=== PATIENT | male | born 1965 | race Caucasian/White ===

== ENCOUNTER 2024-06-12 15:03 | Inpatient (IN) | payer MEDICARE, OTHER, SELFPAY ==
[2024-06-12] VITALS (11 sets, daily range): BP systolic 83–114; BP diastolic 58–71; BMI 19.0
[2024-06-12 13:04] LABS: Urine Albumin Trace (Neg - Trace); Urine Bilirubin Negative (Negative); Urine Character Slightly Cloudy (Clear); Urine Color Yellow; Urine Glucose Negative (Negative); Urine Ketone Negative (Negative); Urine Leukocyte 2+ (Negative); Urine Nitrite Positive (Negative); Urine Occult Blood Negative (Negative); Urine Urobilinogen Negative (Neg - 1+)
[2024-06-12 13:06] LABS: % Basophils 0.5 % (0-2); % Eosinophils 3.5 % (0-6); % Immature Granulocytes 0.6 % (0-0.5); % Lymphocytes 11.3 % (20.5-51.1); % Monocytes 11.6 % (1.7-9.3); % Neutrophils 72.5 % (42.2-75.2); Absolute Basophils 0.1 10^3/uL (0-0.2); Absolute Eosinophils 0.5 10^3/uL (0-0.7); Absolute Immature Granulocytes 0.1 10^3/uL (0-0.05); Absolute Lymphocytes 1.6 10^3/uL (1.2-3.4); Absolute Monocytes 1.7 10^3/uL (0.1-0.6); Absolute Neutrophils 10.3 10^3/uL (1.4-6.5); Hematocrit 29.5 % (39.0-52.0); Hemoglobin 9.6 g/dL (13.0-18.0); Mean Corp Hgb Conc. 32.5 g/dL (33.0-37.0); Mean Corpuscular Hgb 31.8 pg (27.0-31.0); Mean Corpuscular Volume 97.7 fL (80.0-94.0); Mean Platelet Volume 10.7 fL (7.4-10.4); Nucleated Red Blood Cells % 0 % (-); Platelet Count 291 10^3/uL (130-400); Red Blood Cell Count 3.02 10^6/uL (4.70-6.10); Red Cell Dist. Width 18.7 % (11.5-14.5); White Blood Cell Count 14.2 10^3/uL (4.8-10.8)
[2024-06-12 13:17] LABS: Urine Bacteria Moderate (Negative); Urine Calcium Oxalate Crystals Present; Urine Red Blood Cell 0-2 /HPF (0-2); Urine Yeast Moderate (Negative)
[2024-06-12 13:27] LABS: Lactic Acid 1.1 mmol/L (0.7-2.0)
--- NOTE | 2024-06-12 13:31 | ED.GENMED ---
History of Present Illness
General
Chief Complaint: Fever
Time Seen by Provider: 06/12/24 12:54
History of Present Illness
History of Present Illness:
58-year-old male with history of complicated COVID infection, with cardiac arrest, anoxic brain injury presenting to the emergency department for concern of fever. Patient is nonverbal, arrives from home where cares for him. Patient allegedly
had extensive hospital stay at [place] recently, discharged to home. Visiting nurse came to the house today, found patient to be febrile and hypotensive, sent to the emergency department. On arrival, patient is contracted, cachectic. He is
awake, however nonverbal. Diffuse wounds to the skin, bandaged. Patient also has a trach collar, however no patent stoma. No additional history obtained at this time.
Past History
Past History
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
ED Past Surgical History: Appendectomy and Orthopedic
Social History
Tobacco: Non-smoker
Alcohol: Occasional
Drug: None
Personal:
Living: group home
Employment: Disabled
Family History
Family History: Other ( sick)
Phy Exam
Physical Exam
Physical Exam:
General: Cachectic, dry mucous membranes, contracted upper and lower extremities
HEENT: protecting airway
Neck: No patent stoma
CV: Normal heart rate, regular rhythm
Resp: No accessory muscle use, no increased work of breathing, lungs clear to auscultation bilaterally
Abd: Soft and non-distended, no tenderness to palpation, PEG tube in place
Extremities: Contracted upper and lower extremities. Skin breakdown to the right medial calf where legs meet. There is also scattered wounds to the sacrum and back, different stages of healing without significant drainage or erythema.
Neuro: alert, no verbal or motor response
: Condom catheter in place
Rectal: deferred
Psych: Normal affect
Skin: Multiple areas of skin breakdown
Course
Orders/Labs/Results
Orders:
Orders
06/12/24 12:43
Electrocardiogram (*1) Urgent
Reason for Study: Fatigue / Weakness
EKG- Treatment ONCE
06/12/24 12:54
Complete Blood Count/With Diff Urgent
Lactic Acid Urgent
Urinalysis Reflex To Culture Urgent
Date Specimen was Collected: 06/12/24
Time Specimen was Collected: 12:52
Urine Microscopic Reflex Cult Urgent
Blood Culture Urgent
JOHANA Source: Blood/Venous
Specimen Description:
Date Specimen was Collected: 06/12/24
Time Specimen was Collected: 12:52
Urine Culture Urgent
JOHANA Source: U
Specimen Description:
Date Specimen was Collected: 06/12/24
Time Specimen was Collected: 12:52
06/12/24 13:00
Blood Culture Routine
JOHANA Source: Blood/Venous
Specimen Description:
06/12/24 13:04
CR Chest Portable - 1 View Urgent
Comment:
Reason For Exam: sepsis
Reason Study Needs to be Portable: Patient Unstable
06/12/24 13:31
Comprehensive Metabolic Panel Urgent
06/12/24 13:47
0.9% Sodium Chloride 1000 ml [Nss] 1,000 ml IV BOLUS
06/12/24 14:06
Cefepime HCl [Maxipime] 2,000 mg IV NOW STA
Abnormal Lab Results
06/12/24 06/12/24
12:54 13:31
WBC 14.2 H 10^3/uL
(4.8-10.8)
RBC 3.02 L 10^6/uL
(4.70-6.10)
Hgb 9.6 L g/dL
(13.0-18.0)
Hct 29.5 L %
(39.0-52.0)
MCV 97.7 H fL
(80.0-94.0)
MCH 31.8 H pg
(27.0-31.0)
MCHC 32.5 L g/dL
(33.0-37.0)
RDW 18.7 H %
(11.5-14.5)
MPV 10.7 H fL
(7.4-10.4)
Abs Immat Gran (auto) 0.1 H 10^3/uL
(0-0.05)
Absolute Neuts (auto) 10.3 H 10^3/uL
(1.4-6.5)
Absolute Monos (auto) 1.7 H 10^3/uL
(0.1-0.6)
Immature Gran % 0.6 H %
(0-0.5)
Lymphocytes % 11.3 L %
(20.5-51.1)
Monocytes % 11.6 H %
(1.7-9.3)
Sodium 132 L mmol/L
(135-145)
Potassium 5.8 H mmol/L
(3.5-5.1)
BUN 59 H mg/dl
(9-20)
Calcium 10.3 H mg/dl
(8.4-10.2)
Total Protein 6.2 L g/dl
(6.3-8.2)
Albumin 2.9 L g/dl
(3.5-5.0)
Urine Nitrite (Reflex) Positive A
(Negative)
Leukocyte Esterase Rfl 2+ A
(Negative)
Urine WBC (Reflex) 11-15 A /HPF
(0-5)
Urine Bacteria (Reflex) Moderate A
(Negative)
Urine Yeast Moderate A
(Negative)
06/12/24 12:54
06/12/24 13:31
Vital Signs
Initial and Last Documented VS:
Initial Vital Signs
Pulse Resp BP Pulse Ox
83 31 114/64 100
06/12/24 12:45 06/12/24 12:45 06/12/24 12:45 06/12/24 12:45
Last Documented Vital Signs
Temp Pulse Resp BP Pulse Ox
99.5 F 85 16 114/64 99
06/12/24 12:50 06/12/24 12:50 06/12/24 12:50 06/12/24 12:50 06/12/24 12:50
MDM/Problems Addressed
MDM/Problems Addressed:
58-year-old male with history of complicated COVID infection, cardiac arrest, anoxic brain injury presenting with fever and hypotension. On arrival, patient with low-grade fever, however blood pressure improved.
In the setting of fever and patient's appearance, concern for systemic infection, unclear source. Potential sources include urine, pneumonia, skin. Sepsis workup initiated with laboratory analysis, lactic acid, blood cultures, urinalysis. Will
also obtain chest x-ray imaging. Attempted to call , without answer.
14:00-patient is lactic acid within normal limits, however does have leukocytosis. Urine appears infected, suspected source. Labs also show hyponatremia, hyperkalemia, however hemolyzed. Was able to reach , updated. Plan for admission for
concern of sepsis from urinary source.
*Critical Care Note
Total Time (30-74mins, 75-104mins- exclusive of procedures): Not Applicable
ED Attending Note
-
Portions of this chart may have been created with voice recognition software.� Occasional wrong word or��sound alike� substitutions may have occurred due to the inherent limitations of voice recognition software.
Discharge Plan
Departure
Prescriptions:
No Action
multivitamin 1 EACH tablet
1 ea feeding tube DAILY
atorvastatin 40 MG tablet
40 mg feeding tube HS
sennosides [senna] 8.6 MG tablet
2 tab feeding tube HS
acetaminophen 325 MG tablet
650 mg feeding tube Q4HPRN PRN (Reason: mild pain, temp>100.4)
albuterol sulfate 2.5 MG/3 ML solution for nebulization
2.5 mg inhalation Q12H
polyethylene glycol 3350 17 GRAMS powder in packet
17 grams feeding tube DAILY
amiodarone [Pacerone] 200 MG tablet
200 mg feeding tube DAILY
hydralazine 25 MG tablet
25 mg feeding tube Q8
Patient Comments:
hold for SBP <100
aspirin [Aspir-Low] 81 MG tablet,delayed release (DR/EC)
81 mg feeding tube .EVERY OTHER DAY
guaifenesin 200 MG/10 ML liquid
200 mg feeding tube Q6
amlodipine 10 MG tablet
10 mg feeding tube DAILY
bisacodyl [OneLAX Bisacodyl] 10 MG suppository
10 mg VT DAILYPRN PRN (Reason: constipation)
Patient Comments:
give if sorbitol is not effective for 24 hours
ferrous sulfate 300 MG/5 ML liquid
300 mg feeding tube BID
lansoprazole [Prevacid] 30 MG capsule,delayed release(DR/EC)
30 mg feeding tube DAILY
docusate sodium [Colace] 100 MG capsule
100 mg feeding tube Q12H
ondansetron 4 MG tablet,disintegrating
4 mg sublingual Q8HPRN PRN (Reason: nausea/vomiting)
sorbitol 30 ML solution
30 ml feeding tube DAILY PRN (Reason: if no BM in 3 days)
heparin (porcine) 5,000 UNITS/ML solution
5,000 units SC Q12H
doxazosin 2 MG tablet
2 mg feeding tube HS
chlorhexidine gluconate 15 ML mouthwash
15 ml PO BID
sodium chloride [Saline Nasal Mist] 126 ML mist
1 spray intranasal Q6H
metoprolol tartrate 75 MG tablet
75 mg feeding tube Q12H
Patient Comments:
hold for SBP <110
Sodium Chloride 7%
4 ml inhalation Q12H
carbamide peroxide [Ear Drops (carbamide peroxide)] 1 DROP drops
5 drp otic (ear) BID
Patient Comments:
for 21 days- started 01/07/22, end date 01/28/22
carboxymethylcellulose sodium [Refresh Celluvisc] 1 EACH dropperette
1 ea BOTH EYES Q4HPRN PRN (Reason: dry eyes)
miconazole nitrate [Miconazorb AF] 1 APPLIC powder
1 applic topical BID 0RF
Rx Instructions:
to groin and moist areas
Interventions
Interventions:
*Risk Screen - Suicide Last Done: 06/12/24 12:41
*General Assessment Last Done: 06/12/24 12:40
*Neglect/Abuse Screening Last Done: 06/12/24 12:41
*ED COVID-19 Vaccine History Last Done: 06/12/24 12:40
ED- Neurological Assessment Last Done: 06/12/24 12:41
ED-Skin Assessment Last Done: 06/12/24 13:00
Discharge Date and Time
Print Language: ROMANSH
[2024-06-12 13:54] LABS: ALT (SGPT) 23 U/L (0-50); AST (SGOT) 17 U/L (17-59); Albumin 2.9 g/dl (3.5-5.0); Alkaline Phosphatase 125 U/L (38-126); Blood Urea Nitrogen 59 mg/dl (9-20); Calcium 10.3 mg/dl (8.4-10.2); Carbon Dioxide 27 mmol/L (22-30); Chloride 98 mmol/L (98-107); Glucose 94 mg/dl (70-99); Potassium 5.8 mmol/L (3.5-5.1); Sodium 132 mmol/L (135-145); Total Bilirubin 0.3 mg/dl (0.2-1.3); Total Protein 6.2 g/dl (6.3-8.2); eGFR > 60.00
--- NOTE | 2024-06-12 14:13 | HPS.HSE ---
Family Physician
-
Family Physician:
Chief Complaint
-
fever
History of Present Illness
58-year-old male with history of complicated COVID infection, with cardiac arrest, anoxic brain injury presenting to the emergency department for concern of fever. Patient is nonverbal, arrives from home where cares for him. patient was found
hypotensive and febrile at home.On arrival, patient is contracted, cachectic. He is awake, however nonverbal.
positive UA. received if cefepime in ER. admitting for further management.
Medical History
Past Medical History
Past Medical History: Reports Other
Additional Past Medical History:
esophageal ring
esophagitis
atiral fib
Past Surgical History: Reports None
Social History
Unable to obtain full social history at this time due to: Acuity
Family History
Family History: Not pertinent
Allergies / Home Medications
Allergies reflects when Allergies were last updated in [facility].
Home Medications with original date entered in [facility]
Allergy/Medication List:
fever
Review of Systems
-
Unable to obtain full review of systems at this time due to: Acuity
Physical Exam
Vital Signs
Vital Signs
Temp Pulse Resp BP Pulse Ox
99.5 F 85 16 114/64 99
06/12/24 12:50 06/12/24 12:50 06/12/24 12:50 06/12/24 12:50 06/12/24 12:50
Physical Exam
General: Well Developed, Well Nourished and No Apparent Distress
HEENT: NormoCephalic, Moist mucous membranes and Atraumatic
Respiratory: Rhonchi
Cardiac: S1/S2 and Regular Rhythm; No Murmur or Rub
GI: Soft, Non Tender, Non Distended, Normal Bowel Sounds and Peg Tube; No Organomegaly
Rectal: Deferred by Provider
Musculoskeletal: No Clubbing, No Cyanosis and No Edema
Skin: Other (sacral wound); No Rash
Neuro: Nonfocal/grossly intact
Laboratory Results
-
06/12/24 12:54
06/12/24 13:31
Laboratory Results
Lactic Acid 1.1 mmol/L (0.7-2.0) 06/12/24 12:54
Total Bilirubin 0.3 mg/dl (0.2-1.3) 06/12/24 13:31
AST 17 U/L (17-59) 06/12/24 13:31
ALT 23 U/L (0-50) 06/12/24 13:31
Alkaline Phosphatase 125 U/L (38-126) 06/12/24 13:31
Data Reviewed
-
Diagnostic Radiology: Report Reviewed by me
Lab Data: Labs Reviewed by me
Impression/Plan
-
#fever/hypotension likely from UTI
#sepsis
- wbc 14.2
-chest x ray with Limited study with possible scarring versus postsurgical changes within the right upper lobe. No focal airspace disease. No large effusions or pneumothorax.
-blood and urine culture sent from ER
-continue iv cefepime
-Tylenol prn for fever
#hxt of complicated COVID infection/anoxic brain injury
#chronic hypoxic respiratory failure from recent COVID infection
-patient has Trach
#anemia of chronic disease
-hgb stable at 9.6
-no active bleeding
-ctm
#hyponatremia likely hypovolemic
#hyperkalemia
-na 132, k 5.8
-hydrate with fluids
-monitor BMp in am
# Prx AF
-c/w Amiodarone and Metoprol vid tube
-EKG with NSR
#Multiple bilateral hemorrhagic infarcts, noted on CT 09/04/2021
#sacral wound
-wound care consulted
#G/J tube
-dietary consulted
#DVT prophylaxis
-heparin sq
#CODE status
-full code
[2024-06-12] MEDS: NSS 1000 IV ×2 (14:19→17:31)
[2024-06-12] MEDS: MAXIPIME 2000 MG IV (14:20)
--- NOTE | 2024-06-12 14:30 | W.PN.UPDATE ---
Addendum entered and electronically signed by Antelmo Beltrán MD 06/12/24 15:21:
Correction: for error
<del>Severe</del> <del>Hypercalcemia</del> <del>suspect</del> <del>2/2</del> <del>severe</del> <del>dehydration</del>
<del>Suspect</del> <del>contraction</del> <del>Alkalosis</del>
<del>Severe</del> <del>azotemia</del>
<del>Renal</del> <del>insufficiency</del> <del>-</del> <del>suspect</del> <del>CKD</del> <del>4/5</del>
<del>-</del> <del>Pending</del> <del>PTH</del>
<del>-</del> <del>c/w</del> <del>NS</del> <del>80/H</del> <del>x</del> <del>2</del> <del>L</del>
<del>-</del> <del>Observe</del> <del>Calcium</del> <del>following</del> <del>Fluid</del> <del>resuscitation</del>
<del>-</del> <del>Trend</del> <del>BMP</del> <del>daily</del>
<del>-</del> <del>Renal</del> <del>CS</del>
Original Note:
Update Note
Progress Note Update
This note serves as an addendum to the H&P by chemical engineering intern ALBERTO [facility]
I could not get any information from the patient as non verbal , trach, HX SABIHA
Information gathered by chart review and speaking with the ER staff.
HPI
58M from Home , 24 hr total care, VN , Trach, PEGTF depedent Nutrition, Non verbal, HX complicated COVID infection with cardiac arrest and anoxic brain injury, HX HTN, HLD, Constipation coming in from home with fever and hypotension;
PHX
Candidal endocarditis,
GERD,
Cardiac arrest
Anoxic brain injury)
Multiple bilateral hemorrhagic infarcts, noted on CT 09/04/2021
Respiratory failure-acute hypoxemic, failed NIV, intubated 08/23/21
Severe Covid 19 pneumonia aug 2021
He reports Covid 19 pneumonia October 2019 and May 2021-note never had a positive test-it was 'assumed'-doubt he had it
Pneumomediastinum, secondary to COVID pneumonia, resolved on CXR 08-27
HX atrial fibrillation, on IV heparin
NSVT
Gallstones-incidentally noted on CT chest 08/18/21
Distal toes ischemia
Constipation, s/p enema, large loose BM 01-25
Reviewed VS: T 99.5 BP 115/65
PE
Gen: chronically debilitated, bedbound.
Neck: supple.
CV: RRR, +S1/S2, no m/r/g.
Resp: CTAB, no rales, wheezes, or rhonchi.
Abd: GJ Tube , +BS, soft, NT, ND
: Prince cath +
MS: fixed severe flexion contracture of all 4 extremities and with sever muscle wasting
Neuro: Nonverbal.
Psych: Nonverbal.
Laboratory Tests
01/25/22 06/12/24 06/12/24
04:34 12:54 13:31
WBC 12.3 H 14.2 H
Hgb 8.2 L 9.6 L
Sodium 132 L
Potassium 5.8 H
BUN 59 H
Creatinine 1.6 H 1.2
eGFR > 60.00
Lactic Acid 1.1
Calcium 10.3 H
Albumin 2.9 L
Urine Nitrite (Reflex) Positive A
Leukocyte Esterase Rfl 2+ A
Urine WBC (Reflex) 11-15 A
Urine Bacteria (Reflex) Moderate A
CXR:
Limited study with possible scarring versus postsurgical changes within the right upper lobe.
No focal airspace disease.
No large effusions or pneumothorax.
Echo 08/18/21: EF 65%, no significant valve disease.
Last hospitalist admission: DATE OF ADMISSION: 01/09/2022 - DATE OF DISCHARGE: 01/25/2022
DISCHARGE DIAGNOSES:
1. Severe hypercalcemia.
2. Contraction alkalosis.
3. Mild progressive hypernatremia.
4. Hypokalemia.
5. Aspiration pneumonia.
6. Acute kidney injury.
7. Hypoxia.
8. Metabolic encephalopathy.
9. History of paroxysmal atrial fibrillation.
10.Functional quadriplegia.
ASSESSMENT & PLAN
Clinical sepsis due to UTI
Relative hypotension
No prior Urine Micro data
- UCx
- IVF
- Hold all anti HTN Meds Hydralazine, Doxazosin
- cont. IV CFP for now
Severe Hypercalcemia suspect 2/2 severe dehydration
Suspect contraction Alkalosis
Severe azotemia
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
- Pending PTH
- c/w NS 80/H x 2 L
- Observe Calcium following Fluid resuscitation
- Trend BMP daily
- Renal CS
In NSR, HX Prx AF
-c/w Amiodarone
c/w Metoprol vis tube with hold index
G J Tune dependent nutrition
Severe protein calori malnutrition
60 kg body weight
Severe FTT at home ?
- Raised Printer consult
- CRM consult
PHX POA
Multiple bilateral hemorrhagic infarcts, noted on CT 09/04/2021
Respiratory failure-acute hypoxemic, failed NIV, intubated 08/23/21
Severe Covid 19 pneumonia Aug 2021
NSVT
Gallstones-incidentally noted on CT chest 08/18/21
Distal toes ischemia
Constipation
DVT Px: SQH
Code: Full code
IMU
--- NOTE | 2024-06-12 16:30 | PTCARENOTE ---
Received patient by stretcher from ED. Patient nonverbal, contracted, many many wounds, white grouped lesions on his feet. WOCN consult placed. On 6L TC to neck stoma. Neck stoma with a lot of white sputum. PEG site CDI. NSR, VSS. Will closely
monitor.
[2024-06-12] MEDS: FERROUS SULFATE ORAL LIQUID 300 MG TUBE (20:56)
[2024-06-12] MEDS: KEPPRA 750 MG TUBE (20:56)
[2024-06-12] MEDS: LIPITOR 40 MG TUBE (20:56)
[2024-06-12] MEDS: DEPAKENE 125 MG TUBE (20:56)
[2024-06-12] MEDS: ZOVIRAX 800 MG TUBE (20:57)
[2024-06-12] MEDS: HEPARIN 5000 UNITS SC (20:57)
[2024-06-13] VITALS (12 sets, daily range): BP systolic 98–126; BP diastolic 59–77
[2024-06-13] MEDS: STERILE WATER FOR INJECTION 10 ML IV ×2 (01:38→13:17)
[2024-06-13] MEDS: MAXIPIME 2000 MG IV ×2 (01:38→13:17)
[2024-06-13] MEDS: NSS 1000 IV ×3 (03:20→22:09)
[2024-06-13 04:36] LABS: Hemoglobin 8.3 g/dL (13.0-18.0); Mean Corp Hgb Conc. 30.7 g/dL (33.0-37.0); Mean Corpuscular Hgb 31.6 pg (27.0-31.0); Mean Corpuscular Volume 102.7 fL (80.0-94.0); Mean Platelet Volume 10.4 fL (7.4-10.4); Platelet Count 235 10^3/uL (130-400); Red Blood Cell Count 2.63 10^6/uL (4.70-6.10); Red Cell Dist. Width 18.7 % (11.5-14.5); White Blood Cell Count 9.8 10^3/uL (4.8-10.8)
[2024-06-13 04:58] LABS: Blood Urea Nitrogen 45 mg/dl (9-20); Calcium 10.3 mg/dl (8.4-10.2); Carbon Dioxide 26 mmol/L (22-30); Chloride 106 mmol/L (98-107); Glucose 90 mg/dl (70-99); Potassium 5.1 mmol/L (3.5-5.1); Sodium 137 mmol/L (135-145); eGFR > 60.00
--- NOTE | 2024-06-13 07:03 | PTCARENOTE ---
Cannot verify VS captured from prior shift.
[2024-06-13] MEDS: KEPPRA 750 MG TUBE ×2 (09:44→21:58)
[2024-06-13] MEDS: FERROUS SULFATE ORAL LIQUID 300 MG TUBE ×2 (09:44→21:58)
[2024-06-13] MEDS: DEPAKENE 125 MG TUBE ×2 (09:46→21:58)
[2024-06-13] MEDS: PACERONE 200 MG TUBE (09:48)
[2024-06-13] MEDS: HEPARIN 5000 UNITS SC ×2 (09:48→20:00)
[2024-06-13] MEDS: LOKELMA 5 GRAM TUBE (09:48)
--- NOTE | 2024-06-13 10:57 | CM ---
CM reviewed chart. CM introduced self and role. Spoke with patient's , as patient is nonverbal. Per EMS report, patient was just discharged 2 days ago from [facility] due to sepsis from multiple wounds. He was being seen by [facility]. The nurse noticed there was an issue with his trach and called .
Patient lives with his . His PCP is Dr. Feliciano Dunbar. His pharmacy is [facility] in [place]. He has 25/02 care. says she helps caring for him and has had some assistance from patient's sister as well. He is bedbound. He uses home 02, has a
trach, PEG tube, has multiple wounds and is contracted and nonverbal. shared that this all resulted from a previous stroke. They live in a multi-level home and there is a ramp to enter into the home. He needs total care. denied at [facility].
ANTICIPATED DISCHARGE DISPO: Home with and home health care when medically cleared.
--- NOTE | 2024-06-13 11:30 | W.PN.HOSP.TC ---
Today's Communication/Plan
-
Cont with IV abx for now
await culture data
Records requested
IVF till TF recs
Assessment / Plan
Assessment / Plan
# Mild hypotension likely multifactorial due to BP meds (lopressor/valsartan) vs. hypovolemia
#Sepsis 2/2 UTI e.coli
- Wbc 14.2
-chest x ray with Limited study with possible scarring versus postsurgical changes within the right upper lobe. No focal airspace disease. No large effusions or pneumothorax.
-Blood cultures in lab. Urine culture preliminary with E. coli. MRSA screen pending.
-continue iv cefepime prophylactically for now
-Tylenol prn for fever
# Anoxic brain injury after multiple stroke in the setting of COVID with functional quadriplegia status post trach and PEG
-Status post trach. Monitor for secretions from trach. If with Increase secretion send sputum for sample
-Awaiting dietary eval for tube feeds.
#Anemia of chronic disease
-hgb stable at 9.6
-no active bleeding
#Hyponatremia likely hypovolemic
#hyperkalemia
-na 132, k 5.8
-hydrate with fluids
-on lokelma daily
-Sodium stabilized. Potassium stabilized.
Severe Hypercalcemia suspect 2/2 severe dehydration and immobilization
Suspect contraction Alkalosis
Severe azotemia
- Ordered PTH and ionized calcium
- c/w NS 80/H
- Observe Calcium following Fluid resuscitation
- Trend BMP daily
# Paroxysmal atrial fibrillation
-c/w Amiodarone, hold metoprolol as with hypotension for now.
-Not on any anticoagulation.
#Hx ?seizures
-Cont with Keppra and Valproic acid
# Multiple open skin wounds and sacral wound
-wound care consulted
#Suspected Severe protein caloric malnutrition of chronic illness
#DVT prophylaxis
-heparin sq
Recent hospitalization at [facility] [place]. Await records.
Anticipated Discharge: > 48 hours
Subjective/Interval History
-
Date of Service: June 13, 2024
on trach
on IVF
non verbal
afebrile
bp stable
mild sinus tach
Objective Data
-
Labs:
Laboratory Results
06/13/24
04:21
WBC 9.8
Hgb 8.3 L
Hct 27.0 L
Plt Count 235
Sodium 137
Potassium 5.1
Chloride 106
Carbon Dioxide 26
BUN 45 H
Creatinine 1.0
Glucose 90
Calcium 10.3 H
Vital Signs:
Vital Signs
Temp Pulse Resp BP Pulse Ox
98.7 F 97 21 109/66 99
06/13/24 07:05 06/13/24 11:00 06/13/24 11:00 06/13/24 10:00 06/13/24 11:17
I&O
06/12/24 06/13/24 06/14/24
06:59 06:59 06:59
Intake Total 1200 / 1200
Output Total 675 / 675
Balance 525 / 525
Physical Exam
-
General: No Apparent Distress, Appears Chronically Ill and Cachectic
HEENT: Normocephalic, Atraumatic, Moist Mucous Membranes and Oxygen (trach )
Respiratory: Rhonchi
Cardiac: Regular Rhythm and S1/S2; Negative Murmur, Rub or Gallop
GI: Soft, Nontender, Nondistended, Normal Bowel Sounds and Peg Tube; Negative Organomegaly
Rectal: Deferred by Provider
Genito-urinary: Prince (condom catheter )
Musculoskeletal: No Clubbing, No Cyanosis and No Edema
Skin: Decubitus Ulcers
Neuro: Awake and Nonfocal/Grossly Intact
Data Reviewed
-
Total Time Spent with Patient (in minutes): 55
--- NOTE | 2024-06-13 13:22 | PTCARENOTE ---
Pt presents as assessed. Aox0, nonverbal, withdrawn. Does not appear to track. NSR on tele monitor. Sating low to mid 90's on 5L 28% TC. Pt extremely contracted. CHG bath provided. Pt with excessive wounds, dressings dry and intact- see
intervention. Condom cath fell off, ela care completed and new CC replaced. FMS draining liquid stool. IVF infusing. Q2T maintained.
--- NOTE | 2024-06-13 17:20 | PTCARENOTE ---
Pt to start tube feeds. Order received for Abd XR to verify peg placement. Awaiting XR at this time.
[2024-06-13] MEDS: LIPITOR 40 MG TUBE (21:58)
[2024-06-14] VITALS (14 sets, daily range): BP systolic 117–134; BP diastolic 72–89
[2024-06-14 01:23] LABS: Glucose - Point of Care 95 mg/dl (70-99)
[2024-06-14] MEDS: MAXIPIME 2000 MG IV ×2 (02:51→14:44)
[2024-06-14] MEDS: STERILE WATER FOR INJECTION 10 ML IV ×2 (02:51→14:44)
--- NOTE | 2024-06-14 03:27 | PTCARENOTE ---
Caring for patient overnight. Nonverbal, opens eyes to verbal stimuli & painful stimuli. Cannot track you with eyes. Remains bedrest & contracted. Spoke to AMMUNITION STORAGE SUPERINTENDENT about XR & verification of Gj tube, unable to verify. Ordered XR w/ contrast which was
done and verified placement. Tube feeds started & tolerating well, will increase per protocol. FMS in place. CC in place. Q2T. IVF running. IVabx. Q6 accu checks. VSS. Remains trach collar, 5L. No issues overnight, will monitor.
[2024-06-14 04:27] LABS: Ionized Calcium 1.46 mMOL/L (1.15-1.33)
[2024-06-14 04:30] LABS: Hematocrit 25.8 % (39.0-52.0); Hemoglobin 8.1 g/dL (13.0-18.0); Mean Corp Hgb Conc. 31.4 g/dL (33.0-37.0); Mean Corpuscular Hgb 31.8 pg (27.0-31.0); Mean Corpuscular Volume 101.2 fL (80.0-94.0); Platelet Count 238 10^3/uL (130-400); Red Blood Cell Count 2.55 10^6/uL (4.70-6.10); Red Cell Dist. Width 18.3 % (11.5-14.5); White Blood Cell Count 8.7 10^3/uL (4.8-10.8)
[2024-06-14 04:49] LABS: Blood Urea Nitrogen 33 mg/dl (9-20); Calcium 10.2 mg/dl (8.4-10.2); Carbon Dioxide 22 mmol/L (22-30); Chloride 112 mmol/L (98-107); Glucose 95 mg/dl (70-99); Magnesium 2.2 mg/dl (1.6-2.3); Phosphorus 3.2 mg/dl (2.5-4.5); Potassium 4.7 mmol/L (3.5-5.1); Sodium 143 mmol/L (135-145); eGFR > 60.00
[2024-06-14 04:50] LABS: Calcium 10.2 mg/dl (8.4-10.2)
[2024-06-14 05:55] LABS: Glucose - Point of Care 89 mg/dl (70-99)
[2024-06-14] MEDS: KEPPRA 750 MG TUBE ×2 (08:18→19:27)
[2024-06-14] MEDS: FERROUS SULFATE ORAL LIQUID 300 MG TUBE ×2 (08:18→19:27)
[2024-06-14] MEDS: DEPAKENE 125 MG TUBE ×2 (08:20→19:26)
[2024-06-14] MEDS: PACERONE 200 MG TUBE (08:21)
[2024-06-14] MEDS: HEPARIN 5000 UNITS SC ×2 (08:22→19:28)
[2024-06-14] MEDS: NSS IV (09:24)
[2024-06-14] MEDS: LOKELMA TUBE (09:25)
--- NOTE | 2024-06-14 10:58 | W.PN.HOSP.TC ---
Today's Communication/Plan
-
Wound care in the morning
Continue with IV antibiotic
Await susceptibility results
Continue with tube feeding
Assessment / Plan
Assessment / Plan
# Mild hypotension likely multifactorial due to BP meds (lopressor/valsartan) vs. hypovolemia
#Sepsis 2/2 UTI e.coli
- Wbc 14.2-->8.7
-chest x ray with Limited study with possible scarring versus postsurgical changes within the right upper lobe. No focal airspace disease. No large effusions or pneumothorax.
-Blood cultures in lab. Urine culture preliminary with E. coli. MRSA screen negative
-continue iv cefepime prophylactically for now
-Tylenol prn for fever
# Anoxic brain injury after multiple stroke in the setting of COVID with functional quadriplegia status post trach and PEG
-Status post trach. Monitor for secretions from trach. If with Increase secretion send sputum for sample
-Started on nephro tube feeding tolerating well.
#Anemia of chronic disease
#ONIEL
-no active bleeding
#Hyponatremia likely hypovolemic
#hyperkalemia
-hydrate with fluids
-on lokelma daily-on hold for now.
-Sodium stabilized. Potassium stabilized.
Severe Hypercalcemia suspect 2/2 severe dehydration and immobilization
Suspect contraction Alkalosis
Severe azotemia
- Ordered PTH pending. Ionized Ca elevated.
- DC ivf.
- Observe Calcium following Fluid resuscitation -IMPROVED.
- Trend BMP daily
# Paroxysmal atrial fibrillation
-c/w Amiodarone, restart metoprolol with low dose
-Not on any anticoagulation.
#Hx ?seizures
-Cont with Keppra and Valproic acid
# Multiple open skin wounds and sacral wound
-wound care consulted
#Suspected Severe protein caloric malnutrition of chronic illness
#DVT prophylaxis
-heparin sq
Code [id number] with spouse over the phone.
Recent hospitalization at [facility]. Await records. But per patient spouse patient was there for approximately a month and a half where he had COVID, aspiration pneumonia and wound suspected infection.
Updated spouse over the phone in detail.
Anticipated Discharge: > 48 hours
Subjective/Interval History
-
Date of Service: June 14, 2024
non verbal
watching tv
afebrile
BP stable
Tolerating tube feeding
IVF stopped
Objective Data
-
Labs:
Laboratory Results
06/14/24 06/14/24
04:05 04:05
WBC 8.7
Hgb 8.1 L
Hct 25.8 L
Plt Count 238
Sodium 143
Potassium 4.7
Chloride 112 H
Carbon Dioxide 22
BUN 33 H
Creatinine 1.0
Glucose 95
Calcium 10.2 10.2
Vital Signs:
Vital Signs
Temp Pulse Resp BP Pulse Ox
99.3 F 97 26 121/72 97
06/14/24 07:15 06/14/24 10:00 06/14/24 10:00 06/14/24 10:00 06/14/24 10:16
I&O
06/13/24 06/14/24 06/15/24
06:59 06:59 06:59
Intake Total 1200 / 1200 1560 / 1560
Output Total 675 / 675 1550 / 1550
Balance 525 / 525
Physical Exam
-
General: No Apparent Distress, Appears Chronically Ill and Cachectic
HEENT: Normocephalic, Atraumatic, Moist Mucous Membranes and Oxygen (trach )
Respiratory: Rhonchi
Cardiac: Regular Rhythm and S1/S2; Negative Murmur, Rub or Gallop
GI: Soft, Nontender, Nondistended, Normal Bowel Sounds and Peg Tube (Without any surrounding erythema.); Negative Organomegaly
Rectal: Deferred by Provider
Genito-urinary: Prince (condom catheter )
Musculoskeletal: No Clubbing, No Cyanosis and No Edema
Skin: Decubitus Ulcers and Other (LE ulcers)
Neuro: Awake and Nonfocal/Grossly Intact
Data Reviewed
-
Total Time Spent with Patient (in minutes): 55
--- NOTE | 2024-06-14 19:09 | PTCARENOTE ---
Rec't pt this AM. TF at goal. Pt tolerating. remains with significant wounds, turning in place. vital signs stable. mouth care difficult due to pt clamping down on suction toothbrush.
[2024-06-14] MEDS: LIPITOR 40 MG TUBE (19:27)
[2024-06-14] MEDS: LOPRESSOR 25 MG TUBE (19:27)
[2024-06-15] VITALS (11 sets, daily range): BP systolic 108–144; BP diastolic 67–83
[2024-06-15] MEDS: MAXIPIME 2000 MG IV (01:49)
[2024-06-15] MEDS: STERILE WATER FOR INJECTION 10 ML IV (01:49)
[2024-06-15 05:07] LABS: Hematocrit 27.8 % (39.0-52.0); Hemoglobin 8.9 g/dL (13.0-18.0); Mean Corpuscular Hgb 32.4 pg (27.0-31.0); Mean Corpuscular Volume 101.1 fL (80.0-94.0); Mean Platelet Volume 10.2 fL (7.4-10.4); Platelet Count 271 10^3/uL (130-400); Red Blood Cell Count 2.75 10^6/uL (4.70-6.10); Red Cell Dist. Width 18.5 % (11.5-14.5); White Blood Cell Count 9.7 10^3/uL (4.8-10.8)
[2024-06-15 05:20] LABS: Blood Urea Nitrogen 27 mg/dl (9-20); Calcium 10.7 mg/dl (8.4-10.2); Carbon Dioxide 24 mmol/L (22-30); Chloride 113 mmol/L (98-107); Glucose 108 mg/dl (70-99); Potassium 4.4 mmol/L (3.5-5.1); Sodium 144 mmol/L (135-145); eGFR > 60.00
--- NOTE | 2024-06-15 06:02 | PTCARENOTE ---
No acute events overnight. Afebrile. Non verbal. TF running at goal.
--- NOTE | 2024-06-15 08:00 | PTCARENOTE ---
report received from previous RN. pt resting in bed, opens eyes- not able to follow commands, non verbal. arms and legs fully contracted. pt repositioned in bed. ST on telemetry heart rate 100-110s. pulses weakly palpable. no edema. pt on trach
collar, 5L 35%. lung sounds coarse throughout. thick brody sputum from stoma. moist intermittent cough. active bowel sounds. peg with nepro at 45 goal rate and 25 water flushes. FMS in place intact. numerous Wounds noted- wound consult in place. see
worklist for full nursing assessment and medication administration.
[2024-06-15] MEDS: DEPAKENE 125 MG TUBE ×2 (08:16→20:05)
[2024-06-15] MEDS: LOPRESSOR 25 MG TUBE ×2 (08:16→20:05)
[2024-06-15] MEDS: PACERONE 200 MG TUBE (08:16)
[2024-06-15] MEDS: HEPARIN 5000 UNITS SC ×2 (08:16→20:06)
[2024-06-15] MEDS: FERROUS SULFATE ORAL LIQUID 300 MG TUBE ×2 (08:16→20:05)
[2024-06-15] MEDS: KEPPRA 750 MG TUBE ×2 (08:18→20:04)
--- NOTE | 2024-06-15 10:40 | WOUNDNOTE ---
L 2ND TOE (DORSAL)
--- NOTE | 2024-06-15 10:44 | WOUNDNOTE ---
Rudy GOEL (LOWER)
--- NOTE | 2024-06-15 10:46 | WOUNDNOTE ---
BACK (R LOWER THORACIC)
--- NOTE | 2024-06-15 10:48 | WOUNDNOTE ---
L 2ND TOE
--- NOTE | 2024-06-15 10:50 | WOUNDNOTE ---
WO RN note: Patient admitted with UTI. Patient was home with his for 2 days after discharge from [facility]. He is current with [facility] [place].
See H&P for complete history.
PMH: bedbound, immobile and severely contracted with multiple stage 4 pressure injuries, complicated Covid infection with cardiac arrest and anoxic brain injury, CVA, GJ tube.
Wound Location and type/assessment: Patient admitted with: stage 4 sacral, bilateral iliac, R ischial, R lema, R lateral elbow pressure injuries. R lema with yellow/brody slough suspect could be to bone under slough with local erythema. Other stage 4
wounds pink and yellow/brody necrotic tissue. Skin around R lateral elbow wound red. R lateral foot with small unstageable pressure injury with black eschar. R medial elbow with deep dermal stage 2 pressure injury. L posterior thigh with deep dermal
vs unstageable pressure injury, pink with yellow fibrin. R dorsal forefoot with brown small scab. L dorsal 2nd toe with dry black ulcer. R pedal pulse palpable. L pedal pulse heard via portable Doppler.
Appetite: NPO, on tube feeding.
Pressure redistribution devices in place: Centrella Max air bed. Patient very contracted, immobile and very thin.
Plan: Dressings changed on wounds. Bariatric air chair cushion placed under sacral/buttocks/feet. Medial elbows cushioned with partial water filled glove covered with disposable pad. Air chair cushion placed between legs. Patient turned to L semi
side lying position with help from MAKENZIE Lantigua. Patient high risk for worsening or additional pressure injuries despite preventative measures in place d/t extremely thin body with very bony prominences, severe contractures and HOB requires to be
elevated d/t aspiration precautions.
Will confirm orders with Dr. Read and updated RN Elissa.
Care plan to be updated and will follow as needed.
Note to case management of equipment requested for discharge: Hospital bed with air mattress if not already in place.
Recommend follow up at wound care center upon discharge.
--- NOTE | 2024-06-15 10:51 | WOUNDNOTE ---
WO RN note: Patient admitted with UTI. Patient lives at home with his for 2 days, current with [facility]. He was recently at [facility].
See H&P for complete history.
PMH: bedbound, immobile and severely contracted with multiple stage 4 pressure injuries, complicated Covid infection with cardiac arrest and anoxic brain injury, CVA, GJ tube.
Wound Location and type/assessment: Patient admitted with: stage 4 sacral, bilateral iliac, R posterior hip, R lema, R lateral elbow pressure injuries. R lema with yellow/brody slough suspect could be to bone under slough with local erythema. Other
stage 4 wounds pink and yellow/brody necrotic tissue. Skin around R lateral elbow wound red. R lateral foot with small unstageable pressure injury with black eschar. R medial elbow with deep dermal stage 2 pressure injury. L lower lema with deep
dermal vs unstageable pressure injury. R dorsal forefoot with brown small scab. L dorsal 2nd to with dry black ulcer. R pedal pulse palpable. L pedal pulse heard via portable Doppler.
Appetite: NPO, on tube feeding.
Pressure redistribution devices in place: Centrella Max air bed. Patient very contracted, immobile and very thin.
Plan: Dressings changed on wounds. Bariatric air chair cushion placed under sacral/buttocks/feet. Medial elbows cushioned with partial water filled glove covered with disposable pad. Air chair cushion placed between legs. Patient turned to L semi
side lying position with help from MAKENZIE Lantigua. Patient high risk for worsening or additional pressure injuries despite preventative measures in place d/t extremely thin body with very bony prominences, severe contractures and HOB requires to be
elevated d/t aspiration precautions.
Will confirm orders with Dr. Read and updated RN Elissa.
Care plan to be updated and will follow as needed.
Note to case management of equipment requested for discharge: Hospital bed with air mattress if not already in place.
Recommend follow up at wound care center upon discharge.
--- NOTE | 2024-06-15 11:04 | W.PN.HOSP.TC ---
Today's Communication/Plan
-
Transition to meropenem for ESBL E. coli UTI
Trend CBC and temperature curve
Trend BMP for hypercalcemia
Assessment / Plan
Assessment / Plan
#Mild multifactorial hypotension
#Sepsis secondary to E. coli UTI
-Was hypotensive in the context of infection and antihypertensive regimen
-Was started on IV cefepime for E. coli UTI, final culture showed ESBL E. coli
-Blood pressure is improved, normotensive to hypertensive this morning
-White cell count has improved though patient still appears toxic on exam
-Afebrile this morning with white cell count up from 8.7-9.6
Plan
-Transition to IV meropenem for ESBL coverage of UTI
-Continue to monitor CBC and temperature curve
-Continue to hold valsartan due to hypotension
-Tylenol for fevers
#Hypercalcemia
-Suspect this is related to dehydration though cannot rule out primary hyperparathyroidism or other causes
-Calcium on arrival was near 11, has been fairly chronically elevated per previous
-Status post IV fluid with calcium now stable in the range of 10�11
-IPTH levels pending, calcium 10.7
Plan
-Follow-up PTH levels and vitamin D levels
-Consider further workup with PTHrP and 1,25-OH vitamin D levels
-Trend BMP daily for now
-No indication for calcitonin/bisphosphonate
#Anoxic brain injury after multiple stroke in the setting of COVID
#functional quadriplegia
#status post trach and PEG
-Status post trach. Monitor for secretions from trach. If with Increase secretion send sputum for sample
-Started on nephro tube feeding tolerating well.
#Anemia of chronic disease
#ONIEL
-no active bleeding, hemoglobin stable
-Remains on oral iron regimen
#Hypovolemic hyponatremia
#hyperkalemia
-Resolved with IVF
#Paroxysmal atrial fibrillation
-Nonvalvular; home medications include metoprolol and amiodarone
-Not currently on anticoagulation due to fall risks
-Heart rate currently stable, NSR this morning
#H/O seizures (?)
-Home medications include Keppra and Valproic acid
-No known history of underlying mood disorders
-No signs of seizure activity
#Multiple open skin wounds and sacral wound
-wound care consulted
#Suspected Severe protein caloric malnutrition of chronic illness
-Remains on tube feeds, should have nutrition follow-up at discharge
DVT prophylaxis: heparin sq
Diet: Tube feeds
Code status: DNR/DNI
Recent hospitalization at [facility]. Await records.
Anticipated Discharge: > 48 hours
Subjective/Interval History
-
Date of Service: June 15, 2024
Seen and examined at the bedside. No acute events reported overnight. AFVSS this morning
History limited from his baseline mental status secondary to anoxic brain injury
Objective Data
-
Labs:
Laboratory Results
06/15/24
04:21
WBC 9.7
Hgb 8.9 L
Hct 27.8 L
Plt Count 271
Sodium 144
Potassium 4.4
Chloride 113 H
Carbon Dioxide 24
BUN 27 H
Creatinine 0.9
Glucose 108 H
Calcium 10.7 H
Vital Signs:
Vital Signs
Temp Pulse Resp BP Pulse Ox
98.4 F 117 27 132/82 93
06/15/24 07:03 06/15/24 08:16 06/15/24 06:06 06/15/24 08:16 06/15/24 07:10
I&O
06/14/24 06/15/24 06/16/24
06:59 06:59 06:59
Intake Total 1560 / 1560 1665 / 1665
Output Total 1550 / 1550 1250 / 1250
Balance 415 / 415
Review of Systems
-
Unable to obtain full review of systems at this time due to: Patient Non-verbal
Physical Exam
-
General: No Apparent Distress, Sweats, Appears Chronically Ill and Cachectic
HEENT: Normocephalic, Atraumatic, Moist Mucous Membranes and Tracheostomy Collar
Respiratory: Rhonchi (Bilaterally) and Non Labored Respirations; Negative Accessory Resp Muscle Use
Cardiac: Regular Rhythm and S1/S2; Negative Murmur, Rub or Gallop
GI: Soft, Nontender, Nondistended, Normal Bowel Sounds and Peg Tube
Musculoskeletal: No Clubbing, No Cyanosis, No Edema and Other (Contracture of lower extremity)
Skin: Warm, Dry and Rash
Neuro: Awake, Alert, Nonfocal/Grossly Intact and Central Nerve's Intact
Psych: Calm
Data Reviewed
-
Labs: Labs Reviewed by me
--- NOTE | 2024-06-15 11:35 | WOUNDNOTE ---
[facility] RN note: Updated Dr. Read re: patient has multiple stage 4 pressure injuries suspect to bone (can feel bone on R Iliac and sacrum), suspect R lema ulcer will be to tendon or bone under yellow necrosis. His R elbow stage 4 wound is very red
around it with undermining (cellulitis vs red from pressure?). Wound pics in chart. Defer to hospitalist if any X-rays to r/t OM indicated. Dr. Read approved local wound care, air mattress with bariatric air chair cushion for extra padding, foot
waffle boots as tolerated. t/c SPD and ordered Foot Waffle boots. Care plan to be updated. Will follow as needed.
--- NOTE | 2024-06-15 12:08 | CM ---
Patient with Hx including anoxic brain injury, nonverbal, trach, PEG with Dx sepsis secondary to UTI, hypotension, hypercalcemia, multiple wounds. Trach collar. PEG feeds. Seen by wound care nurse. Enhanced Precautions.
Spoke with patient's Karyna;
is patient's primary caregiver and patient has private caregivers through [facility] [employer] in [place] 8 hrs/day 3 days/wk.
The patient is setup with [facility] for [facility]evity tube feeds.
states she has all needed trach supplies, suction equipment, hospital bed, alternating pressure mattress.
volunteers that the patient was recently at [facility] then [facility] and she says he developed his wounds there. assists with wound care.
requests that our MD sign his disability forms to extend his disability---> message sent to Dr Read who agrees. She will bring in the disability forms.
asking for help with patient portal ---> directed her to contact Medical Records for assistance.
Spoke with [facility] (fax [phone]); referral place in [facility]. They are able to resume service. They had already ordered wound care supplies from prior recent discharge from [place].
Plan home with [facility].
[2024-06-15] MEDS: MERREM 100 MG IV ×2 (12:11→20:03)
--- NOTE | 2024-06-15 15:00 | WOUNDNOTE ---
JIMMY Lombardo confirmed with patient's that patient has an air mattress at home.
[2024-06-15] MEDS: SANTYL OINTMENT 1 APPLIC TOPICAL (20:04)
[2024-06-15] MEDS: DAKIN'S SOLUTION 0.125% 1/4 STRENGTH 473 ML TOPICAL (20:04)
[2024-06-15] MEDS: LIPITOR 40 MG TUBE (20:05)
[2024-06-16] VITALS (13 sets, daily range): BP systolic 95–137; BP diastolic 60–78
[2024-06-16] MEDS: MERREM 100 MG IV (04:51)
[2024-06-16 05:01] LABS: % Basophils 0.5 % (0-2); % Eosinophils 5.9 % (0-6); % Immature Granulocytes 0.4 % (0-0.5); % Lymphocytes 12.1 % (20.5-51.1); % Monocytes 9.8 % (1.7-9.3); % Neutrophils 71.3 % (42.2-75.2); Absolute Basophils 0.1 10^3/uL (0-0.2); Absolute Eosinophils 0.6 10^3/uL (0-0.7); Absolute Lymphocytes 1.2 10^3/uL (1.2-3.4); Absolute Neutrophils 7.2 10^3/uL (1.4-6.5); Hemoglobin 8.9 g/dL (13.0-18.0); Mean Corp Hgb Conc. 31.8 g/dL (33.0-37.0); Mean Corpuscular Hgb 32.4 pg (27.0-31.0); Mean Corpuscular Volume 101.8 fL (80.0-94.0); Mean Platelet Volume 9.9 fL (7.4-10.4); Nucleated Red Blood Cells % 0.2 % (-); Platelet Count 267 10^3/uL (130-400); Red Blood Cell Count 2.75 10^6/uL (4.70-6.10); Red Cell Dist. Width 18.4 % (11.5-14.5)
[2024-06-16 05:23] LABS: Blood Urea Nitrogen 30 mg/dl (9-20); Calcium 10.7 mg/dl (8.4-10.2); Carbon Dioxide 27 mmol/L (22-30); Chloride 109 mmol/L (98-107); Estimated Creatinine Clearance 64 ml/min; Glucose 103 mg/dl (70-99); Potassium 4.2 mmol/L (3.5-5.1); Sodium 142 mmol/L (135-145); eGFR > 60.00
--- NOTE | 2024-06-16 05:58 | PTCARENOTE ---
No acute events overnight. TF at goal. Afebrile. Condom catheter draining clear yellow urine.
[2024-06-16] MEDS: DAKIN'S SOLUTION 0.125% 1/4 STRENGTH 473 ML TOPICAL ×2 (08:24→19:13)
[2024-06-16] MEDS: DEPAKENE 125 MG TUBE ×2 (08:25→19:11)
[2024-06-16] MEDS: FERROUS SULFATE ORAL LIQUID 300 MG TUBE ×2 (08:26→19:11)
[2024-06-16] MEDS: LOPRESSOR 25 MG TUBE ×2 (08:26→19:14)
[2024-06-16] MEDS: PACERONE 200 MG TUBE (08:26)
[2024-06-16] MEDS: KEPPRA 750 MG TUBE ×2 (08:26→19:11)
[2024-06-16] MEDS: SANTYL OINTMENT 1 APPLIC TOPICAL ×2 (08:27→19:13)
[2024-06-16] MEDS: HEPARIN 5000 UNITS SC ×2 (08:27→19:16)
[2024-06-16 09:08] LABS: Intact PTH 13.5 pg/ml (13.6-85.8)
--- NOTE | 2024-06-16 11:02 | W.PN.HOSP.TC ---
Today's Communication/Plan
-
Transition to doxycycline twice daily to complete 10 days of antibiotics
Continue to trend CBC and temperature curve
Start analgesic regimen for chronic ulcers
Assessment / Plan
Assessment / Plan
#Mild multifactorial hypotension
#Sepsis secondary to E. coli UTI
-Was hypotensive in the context of infection and antihypertensive regimen
-Was started on IV cefepime for E. coli UTI, final culture showed ESBL E. coli
-Blood pressure is improved, normotensive to hypertensive this morning
-White cell count has improved though patient still appears toxic on exam
-Afebrile this morning with white cell count up from 8.7-9.6
-Spoke with ID who recommended doxycycline Bactrim for 10 days
Plan
-Transition meropenem to doxycycline for 10-day course of antibiotic
-Continue to monitor CBC and temperature curve
-Continue to hold valsartan due to hypotension
-Tylenol for fevers
#Hypercalcemia
-Suspect this is related to dehydration though cannot rule out primary hyperparathyroidism or other causes
-Calcium on arrival was near 11, has been fairly chronically elevated per previous
-Status post IV fluid with calcium now stable in the range of 10�11
-IPTH levels low at 13.7, calcium stable at 10.7
-No indication for calcitonin/bisphosphonate
#Multiple stage IV pressure injuries, POA
-Noted to have stage IV pressure injuries of sacrum, right lema, right elbow
-Has not had leukocytosis or fevers since admission
-Do not think they are actively infected at this time
-Continue to monitor CBC and temperature curve
-Consider imaging to rule out osteomyelitis if needed
#Anoxic brain injury after multiple stroke in the setting of COVID
#functional quadriplegia
#status post trach and PEG
-Status post trach. Monitor for secretions from trach. If with Increase secretion send sputum for sample
-Started on nephro tube feeding tolerating well.
#Anemia of chronic disease
#ONIEL
-no active bleeding, hemoglobin stable
-Remains on oral iron regimen
#Hypovolemic hyponatremia
#hyperkalemia
-Resolved with IVF
#Paroxysmal atrial fibrillation
-Nonvalvular; home medications include metoprolol and amiodarone
-Not currently on anticoagulation due to fall risks
-Heart rate currently stable, NSR this morning
#H/O seizures (?)
-Home medications include Keppra and Valproic acid
-No known history of underlying mood disorders
-No signs of seizure activity
#Multiple open skin wounds and sacral wound
-wound care consulted
#Suspected Severe protein caloric malnutrition of chronic illness
-Remains on tube feeds, should have nutrition follow-up at discharge
DVT prophylaxis: heparin sq
Diet: Tube feeds at 60 mL/h, 60 mL free water flush per hour
Code status: DNR/DNI
Recent hospitalization at [place]. Await records.
Anticipated Discharge: 24 - 48 hours
Subjective/Interval History
-
Date of Service: June 16, 2024
Seen and examined the bedside. No acute events report overnight. AFVSS this morning.
Spoke with ID about antibiotic selection. Will plan to transition to doxycycline oral regimen to complete 10 days of antibiotics
ROS limited by nonverbal status
Objective Data
-
Labs:
Laboratory Results
06/16/24
04:45
WBC 10.0
Hgb 8.9 L
Hct 28.0 L
Plt Count 267
Sodium 142
Potassium 4.2
Chloride 109 H
Carbon Dioxide 27
BUN 30 H
Creatinine 0.9
Glucose 103 H
Calcium 10.7 H
Vital Signs:
Vital Signs
Temp Pulse Resp BP Pulse Ox
99.6 F 103 27 123/78 96
06/16/24 09:27 06/16/24 08:26 06/16/24 06:00 06/16/24 08:26 06/16/24 04:00
I&O
06/15/24 06/16/24 06/17/24
06:59 06:59 06:59
Intake Total 1665 / 1665 2630 / 2630
Output Total 1250 / 1250 1250 / 1250
Balance 415 / 415 1380 / 1380
Review of Systems
-
Unable to obtain full review of systems at this time due to: Patient Non-verbal
Physical Exam
-
General: No Apparent Distress, Comfortable, Appears Chronically Ill and Cachectic
HEENT: Normocephalic, Atraumatic and Moist Mucous Membranes
Respiratory: Rhonchi and Non Labored Respirations; Negative Wheezes or Rales
Cardiac: Regular Rhythm and S1/S2; Negative Murmur, Rub or Gallop
GI: Soft, Nontender, Nondistended and Normal Bowel Sounds
Musculoskeletal: No Clubbing, No Cyanosis, No Edema and Other (Chronic contractures)
Skin: Warm, Dry and Ulcers; Negative Rash
Neuro: Awake, Alert and Nonfocal/Grossly Intact
Data Reviewed
-
Labs: Labs Reviewed by me
[2024-06-16 13:59] LABS: Vitamin D, 25-OH*** 33.3 ng/mL (30-80)
[2024-06-16] MEDS: MORPHINE SULFATE 1 MG IV (14:24)
--- NOTE | 2024-06-16 17:18 | PTCARENOTE ---
Assumed care of patient during the day, received report via RN. Pt nonverbal but arousable to verbal and pain stimuli. Pt 99% with trach collar at 5L 35%. Stoma intact. Cleansed area with saline. Normal sinus to sinus tach on tele. Wound care
performed per order see worklist. Pre medicated patient before wound care, see OCT. Tube feed running. PEG site cleaned dressing is clean, dry, and intact. Pt turned and repositioned Q2 hours.
[2024-06-16] MEDS: LIPITOR 40 MG TUBE (19:12)
[2024-06-16] MEDS: VIBRAMYCIN 100 MG TUBE (19:12)
[2024-06-17] VITALS (12 sets, daily range): BP systolic 107–136; BP diastolic 55–87
[2024-06-17] MEDS: MORPHINE SULFATE 2 MG IV (04:19)
[2024-06-17 04:29] LABS: % Basophils 0.6 % (0-2); % Eosinophils 9.4 % (0-6); % Immature Granulocytes 0.4 % (0-0.5); % Lymphocytes 10.5 % (20.5-51.1); % Monocytes 7.7 % (1.7-9.3); % Neutrophils 71.4 % (42.2-75.2); Absolute Basophils 0.1 10^3/uL (0-0.2); Absolute Eosinophils 1.1 10^3/uL (0-0.7); Absolute Immature Granulocytes 0.1 10^3/uL (0-0.05); Absolute Lymphocytes 1.3 10^3/uL (1.2-3.4); Absolute Monocytes 0.9 10^3/uL (0.1-0.6); Absolute Neutrophils 8.6 10^3/uL (1.4-6.5); Hematocrit 28.6 % (39.0-52.0); Hemoglobin 9.3 g/dL (13.0-18.0); Mean Corp Hgb Conc. 32.5 g/dL (33.0-37.0); Mean Corpuscular Hgb 32.7 pg (27.0-31.0); Mean Corpuscular Volume 100.7 fL (80.0-94.0); Mean Platelet Volume 9.9 fL (7.4-10.4); Nucleated Red Blood Cells % 0 % (-); Platelet Count 291 10^3/uL (130-400); Red Blood Cell Count 2.84 10^6/uL (4.70-6.10); Red Cell Dist. Width 18.3 % (11.5-14.5)
[2024-06-17 04:51] LABS: Blood Urea Nitrogen 33 mg/dl (9-20); Calcium 10.4 mg/dl (8.4-10.2); Carbon Dioxide 26 mmol/L (22-30); Chloride 106 mmol/L (98-107); Estimated Creatinine Clearance 57 ml/min; Glucose 149 mg/dl (70-99); Iron 39 ug/dl (49-181); Potassium 4.7 mmol/L (3.5-5.1); Sodium 143 mmol/L (135-145); eGFR > 60.00
[2024-06-17 05:00] LABS: Percent Saturation 20 % (20-50); Total Iron Binding Capacity 188 ug/dl (261-462)
[2024-06-17 05:56] LABS: Vitamin B12 854 pg/ml (239-931)
--- NOTE | 2024-06-17 06:07 | PTCARENOTE ---
No acute events overnight. Afebrile. Remains on the trach collar at 35 percent. PRN morphine given for pain. Wound care completed as ordered.
[2024-06-17] MEDS: DAKIN'S SOLUTION 0.125% 1/4 STRENGTH 473 ML TOPICAL ×2 (09:20→22:08)
[2024-06-17] MEDS: LOPRESSOR 25 MG TUBE ×2 (09:21→22:11)
[2024-06-17] MEDS: DEPAKENE 125 MG TUBE ×2 (09:21→22:06)
[2024-06-17] MEDS: PACERONE 200 MG TUBE (09:21)
[2024-06-17] MEDS: KEPPRA 750 MG TUBE ×2 (09:22→22:04)
[2024-06-17] MEDS: VIBRAMYCIN 100 MG TUBE ×2 (09:22→22:04)
[2024-06-17] MEDS: FERROUS SULFATE ORAL LIQUID 300 MG TUBE ×2 (09:23→22:04)
[2024-06-17] MEDS: SANTYL OINTMENT 1 APPLIC TOPICAL ×2 (09:23→22:04)
[2024-06-17] MEDS: HEPARIN 5000 UNITS SC ×2 (09:23→22:03)
--- NOTE | 2024-06-17 12:17 | W.PN.HOSP.TC ---
Today's Communication/Plan
-
Monitor WBC
Cont doxycycline
Cont with TF
Wound care
trach maintence
hold valsartan
Assessment / Plan
Assessment / Plan
#Mild multifactorial hypotension
#Sepsis secondary to E. coli UTI
-Was hypotensive in the context of infection and antihypertensive regimen
-Was started on IV cefepime for E. coli UTI, final culture showed ESBL E. coli
-Blood pressure is improved, normotensive to hypertensive this morning
-Afebrile this morning but with bump in WBC to 12k.
-Dr. Read Spoke with ID who recommended doxycycline for 10 days
Plan
-Transition meropenem to doxycycline for 10-day course of antibiotic
-Continue to monitor CBC and temperature curve
-Continue to hold valsartan due to hypotension
-Tylenol for fevers
#Hypercalcemia
-Suspect this is related to dehydration though cannot rule out primary hyperparathyroidism or other causes
-Calcium on arrival was near 11, has been fairly chronically elevated per previous
-Status post IV fluid with calcium now stable in the range of 10�11
-IPTH levels low at 13.7, calcium stable at 10.4. Phosphorus within normal limits
-No indication for calcitonin/bisphosphonate
#Multiple stage IV pressure injuries, POA
-Noted to have stage IV pressure injuries of sacrum, right lema, right elbow
-Continue to monitor CBC and temperature curve
-Consider imaging to rule out osteomyelitis if needed
#Anoxic brain injury after multiple stroke in the setting of COVID
#functional quadriplegia
#status post trach and PEG
-Status post trach. Monitor for secretions from trach. If with Increase secretion send sputum for sample
-Started on nephro tube feeding tolerating well.
#Anemia of chronic disease
#ONIEL
-no active bleeding, hemoglobin stable
-Remains on oral iron regimen
#Hypovolemic hyponatremia
#hyperkalemia
-Resolved with IVF. DC further lokelma
#Paroxysmal atrial fibrillation
-Nonvalvular; home medications include metoprolol and amiodarone
-Not currently on anticoagulation due to fall risks
-Heart rate currently stable, NSR this morning
#H/O seizures (?)
-Home medications include Keppra and Valproic acid
-No known history of underlying mood disorders
-No signs of seizure activity
#Multiple open skin wounds and sacral wound
-wound care consulted
#Suspected Severe protein caloric malnutrition of chronic illness
-Remains on tube feeds, should have nutrition follow-up at discharge
DVT prophylaxis: heparin sq
Diet: Tube feeds at 60 mL/h, 60 mL free water flush per hour
Code status: DNR/DNI
Recent hospitalization at [place]. Await records.
Anticipated Discharge: > 48 hours
Subjective/Interval History
-
Date of Service: June 17, 2024
Remains afebrile
tolerating tube feeding
Objective Data
-
Labs:
Laboratory Results
06/17/24
04:12
WBC 12.0 H
Hgb 9.3 L
Hct 28.6 L
Plt Count 291
Sodium 143
Potassium 4.7
Chloride 106
Carbon Dioxide 26
BUN 33 H
Creatinine 1.0
Glucose 149 H
Calcium 10.4 H
Vital Signs:
Vital Signs
Temp Pulse Resp BP Pulse Ox
98.3 F 105 27 127/78 100
06/17/24 11:50 06/17/24 09:21 06/17/24 08:00 06/17/24 09:21 06/17/24 08:00
I&O
06/16/24 06/17/24 06/18/24
06:59 06:59 06:59
Intake Total 2630 / 2630 1470 / 1470
Output Total 1250 / 1250 1600 / 1600
Balance 1380 / 1380 -130 / -130
Physical Exam
-
General: No Apparent Distress, Comfortable, Appears Chronically Ill and Cachectic
HEENT: Normocephalic, Atraumatic and Moist Mucous Membranes
Respiratory: Rhonchi and Non Labored Respirations; Negative Wheezes or Rales
Cardiac: Regular Rhythm and S1/S2; Negative Murmur, Rub or Gallop
GI: Soft, Nontender, Nondistended and Normal Bowel Sounds
Musculoskeletal: No Clubbing, No Cyanosis, No Edema and Other (Chronic contractures)
Skin: Warm, Dry and Ulcers (B/L Iliac, sacral, posterior hip, R lema, R lateral elbow ); Negative Rash
Neuro: Awake, Alert and Nonfocal/Grossly Intact
Data Reviewed
-
Total Time Spent with Patient (in minutes): 52
--- NOTE | 2024-06-17 15:19 | CM ---
Patient with Hx including anoxic brain injury, nonverbal, trach, PEG feeds. O2 8L/35% Trach collar. PEG feeds. Seen by wound care nurse. Enhanced Precautions.
Message from Dr William; patient may be ready for d/c on Tuesday 06/19 if WBC improves. He requests give disability paperwork to PCP to complete.
Spoke with patient's Karyna;
provided update re; probable timing of d/c 06/19. She will be ready to receive him home Saturday by ambulance transport. made aware she should give disability paperwork to PCP to complete.
stated she is hoping [facility] can draw the patient's labwork at home, CBC and CMP, which is completed via [facility]---> message to Dr William who will order home labwork.
Spoke with [facility] (fax [phone]); she confirms that they can draw the labs again using [facility], and do require an MD order from us for the labwork (script or on d/c orders).
*Plan send orders for home lab draw to [facility].
Plan home with [facility] caregivers, [facility], with orders for home lab draw by , by ambulance.
--- NOTE | 2024-06-17 16:05 | PTCARENOTE ---
Rec'd pt this AM. thick, white sputem from stoma. cleansed area. wound care complete. Remains on 8L 35% trach collar. care given, TF running as ordered.
[2024-06-17] MEDS: LIPITOR 40 MG TUBE (22:04)
[2024-06-18] VITALS (13 sets, daily range): BP systolic 93–122; BP diastolic 56–86
[2024-06-18] MEDS: MORPHINE SULFATE 2 MG IV ×2 (05:15→12:43)
--- NOTE | 2024-06-18 06:00 | PTCARENOTE ---
Pt does not follow commands. Alert, non verbal. withdrawals to pain. Oral care done. All BID wounds changed per orders this morning and labeled. Prn morphine provided for discomfort/wound changes. TC 8L & 35%, Sp02 WNL. Coughs up white sputum via
stoma; cleansed multiple times, protective barrier applied. Turned throughout the night. Barrier cream applied generously to ela anal area. Pt is contracted and in a position. On air cushion, feet in air boots. FMS in place for loose stool,
flushed. CC #[address] draining cloudy, yellow urine. Enhanced contact precautions in place. Tolerating TF via G/J tube. NSR w/ BBB on tele.
[2024-06-18 09:19] LABS: % Basophils 0.7 % (0-2); % Eosinophils 11.6 % (0-6); % Immature Granulocytes 0.3 % (0-0.5); % Monocytes 10.5 % (1.7-9.3); % Neutrophils 57.9 % (42.2-75.2); Absolute Basophils 0.1 10^3/uL (0-0.2); Absolute Eosinophils 1.5 10^3/uL (0-0.7); Absolute Lymphocytes 2.4 10^3/uL (1.2-3.4); Absolute Monocytes 1.3 10^3/uL (0.1-0.6); Absolute Neutrophils 7.4 10^3/uL (1.4-6.5); Hematocrit 30.5 % (39.0-52.0); Hemoglobin 9.8 g/dL (13.0-18.0); Mean Corp Hgb Conc. 32.1 g/dL (33.0-37.0); Mean Corpuscular Volume 99.7 fL (80.0-94.0); Mean Platelet Volume 9.6 fL (7.4-10.4); Nucleated Red Blood Cells % 0 % (-); Platelet Count 285 10^3/uL (130-400); Red Blood Cell Count 3.06 10^6/uL (4.70-6.10); Red Cell Dist. Width 18.3 % (11.5-14.5); White Blood Cell Count 12.7 10^3/uL (4.8-10.8)
[2024-06-18] MEDS: DAKIN'S SOLUTION 0.125% 1/4 STRENGTH 473 ML TOPICAL ×2 (10:07→20:00)
[2024-06-18] MEDS: DEPAKENE 125 MG TUBE ×2 (10:08→20:01)
[2024-06-18] MEDS: FERROUS SULFATE ORAL LIQUID 300 MG TUBE ×2 (10:09→20:01)
[2024-06-18] MEDS: HEPARIN 5000 UNITS SC ×2 (10:09→20:01)
[2024-06-18] MEDS: KEPPRA 750 MG TUBE ×2 (10:10→20:02)
[2024-06-18] MEDS: LOPRESSOR 25 MG TUBE ×2 (10:11→20:03)
[2024-06-18] MEDS: PACERONE 200 MG TUBE (10:12)
[2024-06-18] MEDS: SANTYL OINTMENT 1 APPLIC TOPICAL ×2 (10:12→20:03)
[2024-06-18] MEDS: VITAMIN D3 (cholecalciferol) 50 MCG TUBE (10:13)
[2024-06-18] MEDS: VIBRAMYCIN 100 MG TUBE ×2 (10:13→20:03)
--- NOTE | 2024-06-18 11:09 | W.PN.HOSP.TC ---
Today's Communication/Plan
-
Trend wbc curve-?some component reactive
cont with antibiotics
cont tube feeding
ongoing wound care
bail agent prognosis poor
Assessment / Plan
Assessment / Plan
#Mild multifactorial hypotension
#Sepsis secondary to E. coli UTI
-Was hypotensive in the context of infection and antihypertensive regimen
-Was started on IV cefepime for E. coli UTI, final culture showed ESBL E. coli
-Blood pressure is improved, normotensive to hypertensive this morning
-Afebrile this morning but with bump in WBC to 12.7k.
-Dr. Read Spoke with ID who recommended doxycycline for 10 days
-Transition meropenem to doxycycline for 10-day course of antibiotic
-Continue to monitor CBC and temperature curve
-Continue to hold valsartan due to hypotension
-Tylenol for fevers
#Hypercalcemia
-Suspect this is related to dehydration though cannot rule out primary hyperparathyroidism or other causes
-Calcium on arrival was near 11, has been fairly chronically elevated per previous
-Status post IV fluid with calcium now stable in the range of 10�11
-IPTH levels low at 13.7, calcium stable at 10.4. Phosphorus within normal limits
-No indication for calcitonin/bisphosphonate
#Multiple stage IV pressure injuries, POA
-Noted to have stage IV pressure injuries of sacrum, right lema, right elbow
-Continue to monitor CBC and temperature curve
-Consider imaging to rule out osteomyelitis if needed
#Anoxic brain injury after multiple stroke in the setting of COVID
#functional quadriplegia
#status post trach and PEG
-Status post trach. Monitor for secretions from trach. If with Increase secretion send sputum for sample
-Started on nephro tube feeding tolerating well.
#Anemia of chronic disease
#ONIEL
-no active bleeding, hemoglobin stable
-Remains on oral iron regimen
#Hypovolemic hyponatremia
#hyperkalemia
-Resolved with IVF. DC further lokelma
#Paroxysmal atrial fibrillation
-Nonvalvular; home medications include metoprolol and amiodarone
-Not currently on anticoagulation due to fall risks
-Heart rate currently stable, NSR this morning
#H/O seizures (?)
-Home medications include Keppra and Valproic acid
-No known history of underlying mood disorders
-No signs of seizure activity
#Multiple open skin wounds and sacral wound
-wound care consulted
#Suspected Severe protein caloric malnutrition of chronic illness
-Remains on tube feeds, should have nutrition follow-up at discharge
DVT prophylaxis: heparin sq
Diet: Tube feeds at 60 mL/h, 60 mL free water flush per hour
Code status: DNR/DNI
Recent hospitalization at [place]. Await records.
Anticipated Discharge: 24 - 48 hours
Subjective/Interval History
-
Date of Service: June 18, 2024
Tolerating tube feeds
afebrile
Bump in wbc
Objective Data
-
Labs:
Laboratory Results
06/18/24
09:09
WBC 12.7 H
Hgb 9.8 L
Hct 30.5 L
Plt Count 285
Vital Signs:
Vital Signs
Temp Pulse Resp BP Pulse Ox
97.2 F 100 25 110/75 98
06/18/24 07:15 06/18/24 10:12 06/18/24 06:00 06/18/24 10:12 06/18/24 06:00
I&O
06/17/24 06/18/24 06/19/24
06:59 06:59 06:59
Intake Total 1470 / 1470 2910 / 2910
Output Total 1600 / 1600 1650 / 1650
Balance -130 / -130 1260 / 1260
Physical Exam
-
General: No Apparent Distress, Comfortable, Appears Chronically Ill, Cachectic and Other (contracted)
HEENT: Normocephalic, Atraumatic and Moist Mucous Membranes
Respiratory: Rhonchi, Non Labored Respirations and Other (trach collar); Negative Wheezes or Rales
Cardiac: Regular Rhythm and S1/S2; Negative Murmur, Rub or Gallop
GI: Soft, Nontender, Nondistended and Normal Bowel Sounds
Musculoskeletal: No Clubbing, No Cyanosis, No Edema and Other (Chronic contractures)
Skin: Warm, Dry and Ulcers (B/L Iliac, sacral, posterior hip, R lema, R lateral elbow ); Negative Rash
Neuro: Awake
--- NOTE | 2024-06-18 13:16 | CM ---
Patient with Hx including anoxic brain injury, nonverbal, trach, PEG feeds. O2 5L/28% Trach collar. WBC 12.7. Receiving PO Abx. PEG feeds. Seen by wound care nurse. Enhanced Precautions. Per nursing; patient contracted, non-verbal.
Went to patient room, not present at this time.
*As per prior notes, would like update from on Saturday if her will be discharged home by ambulance. She had requested home lab draw through [facility], and had agreed to order.
*Plan send orders for home lab draw to [facility].
Plan contact Saturday with update re; possible d/c.
Plan home with resumption caregivers, resumption [facility], with orders for home lab draw by [facility], by ambulance.
--- NOTE | 2024-06-18 18:41 | PTCARENOTE ---
Patient has eyes open in bed, body in contracted. Patient is tolerating tube feeds, fecal management system draining brown liquid. Wound care provided as per orders. Patient turned every 2 hours. Objectively comfortable, Coughing up secretions. On
28% humidifed air via trach collar.
[2024-06-18] MEDS: LIPITOR 40 MG TUBE (23:47)
[2024-06-19] VITALS (9 sets, daily range): BP systolic 100–129; BP diastolic 70–87
--- NOTE | 2024-06-19 04:19 | PTCARENOTE ---
Pt does not follow commands. Alert, non verbal. withdrawals to pain and movement. Oral care done. Patient tolerating tube feeds, fecal management system draining brown liquid. Pt Assessment care and vitals as charted.
[2024-06-19 05:36] LABS: % Basophils 0.6 % (0-2); % Eosinophils 10.2 % (0-6); % Immature Granulocytes 0.4 % (0-0.5); % Lymphocytes 15.7 % (20.5-51.1); % Neutrophils 63.1 % (42.2-75.2); Absolute Basophils 0.1 10^3/uL (0-0.2); Absolute Eosinophils 1.3 10^3/uL (0-0.7); Absolute Immature Granulocytes 0.1 10^3/uL (0-0.05); Absolute Monocytes 1.3 10^3/uL (0.1-0.6); Hemoglobin 9.5 g/dL (13.0-18.0); Mean Corp Hgb Conc. 31.7 g/dL (33.0-37.0); Mean Corpuscular Hgb 32.5 pg (27.0-31.0); Mean Corpuscular Volume 102.7 fL (80.0-94.0); Mean Platelet Volume 9.7 fL (7.4-10.4); Nucleated Red Blood Cells % 0 % (-); Platelet Count 294 10^3/uL (130-400); Red Blood Cell Count 2.92 10^6/uL (4.70-6.10); Red Cell Dist. Width 18.2 % (11.5-14.5); White Blood Cell Count 12.7 10^3/uL (4.8-10.8)
[2024-06-19] MEDS: DEPAKENE 125 MG TUBE (08:49)
[2024-06-19] MEDS: FERROUS SULFATE ORAL LIQUID 300 MG TUBE (08:49)
[2024-06-19] MEDS: KEPPRA 750 MG TUBE (08:50)
[2024-06-19] MEDS: LOPRESSOR 25 MG TUBE (08:51)
[2024-06-19] MEDS: VIBRAMYCIN 100 MG TUBE (08:51)
[2024-06-19] MEDS: VITAMIN D3 (cholecalciferol) 50 MCG TUBE (08:51)
[2024-06-19] MEDS: PACERONE 200 MG TUBE (08:51)
[2024-06-19] MEDS: HEPARIN 5000 UNITS SC (08:52)
[2024-06-19] MEDS: DAKIN'S SOLUTION 0.125% 1/4 STRENGTH 1 ML TOPICAL (09:43)
[2024-06-19] MEDS: SANTYL OINTMENT 1 APPLIC TOPICAL (09:44)
--- NOTE | 2024-06-19 10:03 | W.PN.HOSP.TC ---
Addendum entered and electronically signed by Aníbal William MD 06/19/24 11:45:
Resume enteral feeds at home as ordered prior to hospital admission
Original Note:
Today's Communication/Plan
-
po abx
cbc/bmp next week
cont tube feeding
half-way prognosis guarded
Assessment / Plan
Assessment / Plan
#Mild multifactorial hypotension
#Sepsis secondary to E. coli UTI
-Was hypotensive in the context of infection and antihypertensive regimen
-Was started on IV cefepime for E. coli UTI, final culture showed ESBL E. coli
-Blood pressure is normotensive
-Afebrile. WBC to 12.7k without increase. No fevers.
-Dr. Read Spoke with ID who recommended doxycycline for 10 days
-Transition meropenem to doxycycline for 10-day course of antibiotic
-Continue to monitor CBC and temperature curve
-DC valsartan due to hypotension and hyperkalemia.
-Tylenol for fevers
#Hypercalcemia
-Suspect this is related to dehydration though cannot rule out primary hyperparathyroidism or other causes
-Calcium on arrival was near 11, has been fairly chronically elevated per previous
-Status post IV fluid with calcium now stable in the range of 10�11
-IPTH levels low at 13.7, calcium stable at 10.4. Phosphorus within normal limits
-No indication for calcitonin/bisphosphonate
#Multiple stage IV pressure injuries, POA
-Noted to have stage IV pressure injuries of sacrum, right lema, right elbow
-Continue to monitor CBC and temperature curve
#Anoxic brain injury after multiple stroke in the setting of COVID
#functional quadriplegia
#status post trach and PEG
-Status post trach. Monitor for secretions from trach.
-Tolerating tube feeds
#Anemia of chronic disease
#ONIEL
-no active bleeding, hemoglobin stable
-Remains on oral iron regimen
#Hypovolemic hyponatremia
#hyperkalemia
-Resolved with IVF. K stable at 4.7
#Paroxysmal atrial fibrillation
-Nonvalvular; home medications include metoprolol and amiodarone
-Not currently on anticoagulation due to fall risks
-Heart rate currently stable. Toprol dose decreased.
#H/O seizures (?)
-Home medications include Keppra and Valproic acid
-No known history of underlying mood disorders
-No signs of seizure activity
#Multiple open skin wounds and sacral wound
-wound care consulted
#Suspected Severe protein caloric malnutrition of chronic illness
-Remains on tube feeds
DVT prophylaxis: heparin sq
Diet: Tube feeds at 60 mL/h, 60 mL free water flush per hour
Code status: DNR/DNI
update spouse over the phone in details on 06/19.
More than 30 minutes spent in discharge including
Final examination of the patient
Summarizing hospital stay
Instructions for continuing care to all relevant caregivers
Preparation of discharge records, prescriptions, and referral forms
Total time spent (in minutes):51
Anticipated Discharge: Today
Subjective/Interval History
-
Date of Service: June 19, 2024
Tolerating tube feeding
Afebrile
BP stable.
Objective Data
-
Labs:
Laboratory Results
06/19/24
05:23
WBC 12.7 H
Hgb 9.5 L
Hct 30.0 L
Plt Count 294
Vital Signs:
Vital Signs
Temp Pulse Resp BP Pulse Ox
98.6 F 110 24 121/78 98
06/19/24 07:50 06/19/24 08:00 06/19/24 08:00 06/19/24 08:00 06/19/24 06:00
I&O
06/18/24 06/19/24 06/20/24
06:59 06:59 06:59
Intake Total 2910 / 2910 3370 / 3370
Output Total 1650 / 1650 1475 / 1475
Balance 1260 / 1260 1895 / 189
Physical Exam
-
General: No Apparent Distress, Comfortable, Appears Chronically Ill, Cachectic and Other (contracted)
HEENT: Normocephalic, Atraumatic and Moist Mucous Membranes
Respiratory: Rhonchi, Non Labored Respirations and Other (trach collar); Negative Wheezes or Rales
Cardiac: Regular Rhythm and S1/S2; Negative Murmur, Rub or Gallop
GI: Soft, Nontender, Nondistended and Normal Bowel Sounds
Musculoskeletal: No Clubbing, No Cyanosis, No Edema and Other (Chronic contractures)
Skin: Warm, Dry and Ulcers (B/L Iliac, sacral, posterior hip, R lema, R lateral elbow ); Negative Rash
Neuro: Awake
--- NOTE | 2024-06-19 10:21 | W.DCSUMMARY ---
Discharge Summary
Discharge Data
Date of Admission: 06/12/24
Date of Discharge: 06/19/24
-
Pending Results: No
Hospital Course
58-year-old male past medical history of anoxic brain injury after multiple strokes in the setting of COVID, functional quadriplegia, status post tracheostomy and PEG tube, hypercalcemia, stage IV pressure injuries on sacrum right lema right elbow,
anemia of chronic disease, atrial fibrillation, history of seizures, suspected protein caloric malnutrition of chronic illness is presenting from home with hypotension. Patient had a recent prolonged hospitalization at [facility] and
patient went home with spouse. Upon evaluation by visiting nurse patient was found to have a severe hypotension. Patient received IV fluid resuscitation. Blood pressure stabilized. Valsartan was discontinued. Patient underwent infectious workup
and found to have area E. coli infection. Urine tract infection finalized to ESBL and sensitive to tetracycline. Antibiotics were switched to doxycycline. White count mild elevation. Patient remained afebrile. Patient blood pressure stabilized
and Lopressor was restarted at a lower dose. Valsartan was discontinued. Patient had mild hyperkalemia on admission which was probably secondary to valsartan. Potassium stabilized. Patient was eval by wound care and recommendation were made for
wound changes at home. Patient was tolerating tube feeds without any difficulty. Patient was at his baseline oxygenation. Prescription was provided for repeat CBC and BMP next week. Patient hospital course was discussed with spouse and all
questions were answered. Spouse wanted to take patient home as she has complete set up at home. Patient be discharged on doxycycline. VN will be set up. Tube feeding will be continued.
Discharge Plan
-
Patient Disposition: Home with Home Care
Discharge Diagnosis/Procedures: Hypotension
Sepsis secondary to urinary tract infection
Hyperkalemia on admission
Hypovolemic hyponatremia
Condition: Fair
Diet: Other diet
Additional Diets: Jevity 1.5 at 60ml/hr with prosource daily.
Activity: As tolerated
Driving Restrictions: No driving
Blood Work: cbc and bmp in 3-5 days via primary doctor.
Other Services: VN
Activity Restrictions/Additional Instructions:
Wound Care Instructions
Bilateral iliac, sacrum, R ischium, R lateral elbow, R lema-clean with 1/4 strength Dakin's solution, Santyl ointment to necrotic tissue, alginate, silicone border foam, change twice a day.
R lateral foot eschar-swab with Betadine, silicone border foam, change daily.
L dorsal 2nd toe necrotic ulcer-swab with Betadine daily. Cover with dry gauze as needed for protection.
L lateral ankle, R dorsal forefoot, L posterior thigh, R back, R medial elbow-clean with saline, silicone border foam, change every 3 days and as needed for loosened dressing.
Air Mattress (add bariatric air cushion under sacral/buttocks as needed for more cushioning), air cushion between legs
Foot waffle boots; air chair cushion under feet/heels/toes.
Turning schedule
Follow up with wound pet care worker or [facility] .
Referrals:
Faye Dunbar CRNP [Family Provider] - in less than 1 week
Additional Discharge Medication Instructions: Valsartan was discontinued
Metoprolol dose was decreased to 25 mg twice a day
Prescriptions:
New
metoprolol tartrate 25 mg Tablet
25 mg feeding tube Q12 30 Days Qty: 60 0RF
doxycycline hyclate 100 mg tablet
100 mg feeding tube BID Qty: 14 0RF
Continued
atorvastatin 40 MG tablet
40 mg feeding tube HS
acetaminophen 325 MG tablet
650 mg feeding tube Q4HPRN PRN (Reason: mild pain, temp>100.4)
albuterol sulfate 2.5 MG/3 ML solution for nebulization
2.5 mg inhalation R [id number] PRN (Reason: sob)
amiodarone [Pacerone] 200 MG tablet
200 mg feeding tube DAILY
ascorbic acid (vitamin C) [Vitamin C] 500 mg Tablet
500 mg feeding tube DAILY
valproic acid (as sodium salt) 250 mg/5 mL Solution
125 mg feeding tube BID
ferrous sulfate 300 mg (60 mg iron)/5 mL Liquid
300 mg feeding tube BID
levetiracetam [Keppra] 100 mg/mL Solution
750 mg feeding tube BID
ProSource 7.5 gram Packet
1 packet PO DAILY
Jose (with collagen) 7-7-1.5 gram Powder In Packet
1 packet PO DAILY
Discontinued
metoprolol tartrate 75 MG tablet
75 mg feeding tube Q12H
valsartan 80 mg Tablet
80 mg feeding tube QPM
acyclovir 800 mg Tablet
800 mg feeding tube BID
Rx Instructions:
take for 2 days starting 06/10/24
Lokelma 5 gram Powder In Packet
5 g PO DAILY
Discharge Orders:
Discharge Patient (As Directed); Ordered 06/19/24
Ordered By: Aníbal William
Discharge Date and Time
Discharge Date/Time: 06/19/24 17:06
Print Language: CYMRO
--- NOTE | 2024-06-19 10:55 | CM ---
Addendum entered by Oralia Pugh 06/19/24 15:33:
Updated notes faxed to [facility] to resume tube feeds.
Original Note:
Chart reviewed and spring encaser spoke with patient's spouse, patient is for discharge today to home with [facility], lab draws are also ordered, script provided. Patient will need ambulance transport, spouse is aware, IMM discussed
and verbal consent by spouse provided.
Plan; Home with [facility] visiting nurses and private duty caregivers, per spouse she has all previous care set up for patient. Per spouse patient has all supplies and equipment in home as this is not a new diagnosis.
[facility]
[phone]
--- NOTE | 2024-06-19 14:46 | PTCARENOTE ---
Assumed care at 0700. Unable to assess orientation, however patient is alert w/ eyes open, withdraws from painful stimuli. VSS. SaO2 mid-high 90s on 5L 29%FiO2 via trach collar. Anahi care and wound care provided, repositioned in bed. Appears
comfortable, resting w/ even respirations when left undisturbed.
--- NOTE | 2024-06-19 17:00 | PTCARENOTE ---
FMS removed and tube feedings discontinued for transport home via ambulance stretcher. Discharge instructions discussed w/ over the phone.
== END 2024-06-19 17:06 | disposition home health service (06) | DRG 871 ==
LOC: IMU 15:03
PROVIDERS: Internal Medicine; Registered Nurse; ADMITTING PHYSICIAN Internal Medicine; ATTENDING PHYSICIAN Hospitalist; EMERGENCY PHYSICIAN Student in an Organized Health Care Education/Training Program; FAMILY PHYSICIAN Nurse Practitioner Family
DX: A41.51 Sepsis due to Escherichia coli [E. coli] (principal); G93.41 Metabolic encephalopathy; L89.154 Pressure ulcer of sacral region, stage 4; L89.014 Pressure ulcer of right elbow, stage 4; L89.894 Pressure ulcer of other site, stage 4; R53.2 Functional quadriplegia; N39.0 Urinary tract infection, site not specified; E46 Unspecified protein-calorie malnutrition; E87.3 Alkalosis; N17.9 Acute kidney failure, unspecified; E87.1 Hypo-osmolality and hyponatremia; J96.11 Chronic respiratory failure with hypoxia; N18.4 Chronic kidney disease, stage 4 (severe); R64 Cachexia; Z68.1 Body mass index [BMI] 19.9 or less, adult; E87.0 Hyperosmolality and hypernatremia; I47.20 Ventricular tachycardia, unspecified; I12.9 Hypertensive chronic kidney disease with stage 1 through stage 4 chronic kidney disease, or unspecified chronic kidney disease; E78.5 Hyperlipidemia, unspecified; E87.5 Hyperkalemia; E86.1 Hypovolemia; I48.0 Paroxysmal atrial fibrillation; Z86.16 Personal history of COVID-19; R79.89 Other specified abnormal findings of blood chemistry; I95.9 Hypotension, unspecified; D63.1 Anemia in chronic kidney disease; E83.52 Hypercalcemia; K21.9 Gastro-esophageal reflux disease without esophagitis; E86.0 Dehydration; D50.9 Iron deficiency anemia, unspecified; T46.5X5A Adverse effect of other antihypertensive drugs, initial encounter; Z93.0 Tracheostomy status; Z86.73 Personal history of transient ischemic attack (TIA), and cerebral infarction without residual deficits; Z86.69 Personal history of other diseases of the nervous system and sense organs; Z86.74 Personal history of sudden cardiac arrest; Z79.899 Other long term (current) drug therapy
CPT/HCPCS: 49465; 71045; 74018; 80048; 80053; 81003; 81015; 82306; 82330; 82607; 82728; 82746; 82962; 83540; 83550; 83605; 83735; 83970; 84100; 85025; 85027; 87040; 87070; 87077; 87086; 87186; 93005; 96361; 96374; 99285; J2185

== ENCOUNTER 2024-07-06 16:35 | Inpatient (IN) | payer MEDICARE, OTHER, SELFPAY ==
[2024-07-06] VITALS (9 sets, daily range): BP systolic 93–128; BP diastolic 63–86; BMI 16.8
--- NOTE | 2024-07-06 13:51 | ED.GENMED ---
History of Present Illness
General
Chief Complaint: Skin Problem
Time Seen by Provider: 07/06/24 13:16
History of Present Illness
History of Present Illness:
TIME OF INITIAL ENCOUNTER: 1:30pm
HPI: The patient has a history of anoxic brain injury after multiple strokes in the setting of COVID, functional quadriplegia, on trach collar with flexion contractures, who is coming in today due to concerns of infection at the left second toe.
EXAM:
GENERAL: The patient is chronically ill in appearance
HEENT: Leftward gaze preference, trach collar in place, trach stoma noted
CARDIOVASCULAR: No murmurs, normal heart rate, regular rhythm, No chest wall tenderness
ABDOMEN: Soft with no peritoneal signs, no tenderness
NEUROLOGIC: Flexion contracture to all extremities, he does not follow any commands, his eyes are open
PSYCHIATRIC: Nonverbal, does not participate with examination
EXTREMITIES: Absent movement to all extremities
SKIN: There is a ulcerative lesion noted with some blood at the dorsal aspect of the left second toe
NUMBER AND COMPLEXITY OF PROBLEMS ADDRESSED AT THE ENCOUNTER
� Chronic conditions affecting care: Anoxic brain injury status postcardiac arrest, A-fib/high blood pressure
� Acute Exacerbation and/or Progression of Chronic Illness: This is an acute problem
� Differential Diagnosis includes: Osteomyelitis, infection, sepsis
AMOUNT AND/OR COMPLEXITY OF DATA TO BE REVIEWED AND ANALYZED
� I performed an independent evaluation of and my interpretation is:
EKG:
CT:
X-rays: I personally reviewed x-rays and agree with radiologist interpretation�some suggestion of osteomyelitis
Laboratory Studies: White count is 15.6 which is higher than recent baseline
Other:
� Review of other/old records: I reviewed the recent records including the discharge summary from last hospitalization when he was treated for sepsis
� Clinical information was obtained by an independent historian: At 1408, I spoke to Karyna Levi () over phone [phone]. Toe looks 'broken', unsure how this happened. Scab was noted 12d ago, then was accidentally
removed by visiting RN. Wound kept bleeding. 2d ago, looked much worse. Temp in 99s.
� Prescriptions/Medications Considered but not given:
� Further testing considered but not performed:
RISK OF COMPLICATIONS AND/OR MORBIDITY OR MORTALITY OF PATIENT MANAGEMENT
� Social determinants of health affecting care: Has home care nursing
� Discussion with other providers: Hospitalist for admission; I also notified Dr. Marsh who recommends consult go to podiatry�I notified Dr. Cool who will see in consultation
� Escalation of care including admission/observation vs risk of discharge considered: Spoke to . Patient's white blood cell count is worse and noted some low-grade temperatures of around 99 �F plus. The patient is
chronically ill in appearance. I have placed him on vancomycin.
ANY OTHER UPDATES:
3:18 PM: I notified and updated over the phone
Past History
Past History
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
ED Past Surgical History: Appendectomy and Orthopedic
Social History
Tobacco: Non-smoker
Alcohol: Occasional
Drug: None
Personal:
Living: assisted
Employment: Disabled
Family History
Family History: Other ( sick)
Phy Exam
Physical Exam
Physical Exam:
See HPI
Course
Orders/Labs/Results
Orders:
Orders
07/06/24 13:32
Toes 2 Views, Left CR [CR Toe(s) Min 2 Vw Left] Urgent
Comment: portable
Reason For Exam: deformity of toe
Indicate Which Toe:: Second
07/06/24 13:40
Complete Blood Count/With Diff Urgent
Comprehensive Metabolic Panel Urgent
Lactate Level [Lactic Acid] Urgent
07/06/24 14:37
Wound Culture [Wound/Abscess/Other Culture] Urgent
JOHANA Source: Toe
Specimen Description:
Date Specimen was Collected: 07/06/24
Time Specimen was Collected: 14:47
07/06/24 15:02
Vancomycin [Vancocin] 1,500 mg 0.9% Sodium Chloride 500 ml [Nss] 500 ml IV NOW
07/06/24 15:30
Blood Culture Q30M
JOHANA Source: Blood/Venous
Specimen Description:
07/06/24 16:00
Blood Culture Q30M
JOHANA Source: Blood/Venous
Specimen Description:
Abnormal Lab Results
07/06/24
13:40
WBC 15.6 H 10^3/uL
(4.8-10.8)
RBC 3.08 L 10^6/uL
(4.70-6.10)
Hgb 9.8 L g/dL
(13.0-18.0)
Hct 30.7 L %
(39.0-52.0)
MCV 99.7 H fL
(80.0-94.0)
MCH 31.8 H pg
(27.0-31.0)
MCHC 31.9 L g/dL
(33.0-37.0)
RDW 16.8 H %
(11.5-14.5)
Abs Immat Gran (auto) 0.1 H 10^3/uL
(0-0.05)
Absolute Neuts (auto) 11.9 H 10^3/uL
(1.4-6.5)
Absolute Monos (auto) 1.3 H 10^3/uL
(0.1-0.6)
Neutrophils % 76.4 H %
(42.2-75.2)
Lymphocytes % 9.8 L %
(20.5-51.1)
BUN 38 H mg/dl
(9-20)
Alkaline Phosphatase 152 H U/L
(38-126)
Total Protein 6.2 L g/dl
(6.3-8.2)
Albumin 2.9 L g/dl
(3.5-5.0)
07/06/24 13:40
07/06/24 13:40
Vital Signs
Initial and Last Documented VS:
Initial Vital Signs
Temp Pulse Resp Pulse Ox
37.7 C 93 18 94
07/06/24 13:17 07/06/24 13:17 07/06/24 13:17 07/06/24 13:17
Last Documented Vital Signs
Temp Pulse Resp BP Pulse Ox
37.7 C 97 27 116/75 94
07/06/24 13:17 07/06/24 14:45 07/06/24 14:45 07/06/24 14:00 07/06/24 13:17
*Critical Care Note
Total Time (30-74mins, 75-104mins- exclusive of procedures): Not Applicable
ED Attending Note
-
Portions of this chart may have been created with voice recognition software.� Occasional wrong word or��sound alike� substitutions may have occurred due to the inherent limitations of voice recognition software.
Discharge Plan
Departure
Patient Disposition: Admit
Date of Disposition: 07/06/24
Time of Disposition: 14:34
Presentation/result/management discussed w/ accepting MD/DO: Hospitalist
Discharge Problem:
Open toe wound
Prescriptions:
No Action
atorvastatin 40 MG tablet
40 mg feeding tube HS
acetaminophen 325 MG tablet
650 mg feeding tube Q4HPRN PRN (Reason: mild pain, temp>100.4)
albuterol sulfate 2.5 MG/3 ML solution for nebulization
2.5 mg inhalation R [id number] PRN (Reason: sob)
amiodarone [Pacerone] 200 MG tablet
200 mg feeding tube DAILY
ascorbic acid (vitamin C) [Vitamin C] 500 mg Tablet
500 mg feeding tube DAILY
valproic acid (as sodium salt) 250 mg/5 mL Solution
125 mg feeding tube BID
ferrous sulfate 300 mg (60 mg iron)/5 mL Liquid
300 mg feeding tube BID
levetiracetam [Keppra] 100 mg/mL Solution
750 mg feeding tube BID
ProSource 7.5 gram Packet
1 packet PO DAILY
Jose (with collagen) 7-7-1.5 gram Powder In Packet
1 packet PO DAILY
metoprolol tartrate 25 mg Tablet
25 mg feeding tube Q12 30 Days Qty: 60 0RF
Santyl 250 unit/gram Ointment
1 applic TOPICAL DAILY
H-Chlor 12 0.125 % solution
1 applic topical DAILY
Referrals:
UNKNOWN - PT NOT,INTERVIEWE [Family Provider] -
Interventions
Interventions:
*Risk Screen - Suicide Last Done: 07/06/24 13:17
*General Assessment Last Done: 07/06/24 13:17
*Neglect/Abuse Screening Last Done: 07/06/24 13:17
*ED COVID-19 Vaccine History Last Done: 07/06/24 13:17
ED-Skin Assessment Last Done: 07/06/24 13:29
Discharge Date and Time
Print Language: ITALIAN
[2024-07-06 14:03] LABS: Lactic Acid 1.3 mmol/L (0.7-2.0)
[2024-07-06 14:05] LABS: ALT (SGPT) 37 U/L (0-50); AST (SGOT) 25 U/L (17-59); Albumin 2.9 g/dl (3.5-5.0); Alkaline Phosphatase 152 U/L (38-126); Blood Urea Nitrogen 38 mg/dl (9-20); Calcium 9.7 mg/dl (8.4-10.2); Carbon Dioxide 29 mmol/L (22-30); Chloride 99 mmol/L (98-107); Glucose 91 mg/dl (70-99); Potassium 4.9 mmol/L (3.5-5.1); Sodium 137 mmol/L (135-145); Total Bilirubin 0.2 mg/dl (0.2-1.3); Total Protein 6.2 g/dl (6.3-8.2); eGFR > 60.00
[2024-07-06 14:16] LABS: % Basophils 0.6 % (0-2); % Eosinophils 4.2 % (0-6); % Immature Granulocytes 0.4 % (0-0.5); % Lymphocytes 9.8 % (20.5-51.1); % Monocytes 8.6 % (1.7-9.3); % Neutrophils 76.4 % (42.2-75.2); Absolute Basophils 0.1 10^3/uL (0-0.2); Absolute Eosinophils 0.7 10^3/uL (0-0.7); Absolute Immature Granulocytes 0.1 10^3/uL (0-0.05); Absolute Lymphocytes 1.5 10^3/uL (1.2-3.4); Absolute Monocytes 1.3 10^3/uL (0.1-0.6); Absolute Neutrophils 11.9 10^3/uL (1.4-6.5); Hematocrit 30.7 % (39.0-52.0); Hemoglobin 9.8 g/dL (13.0-18.0); Mean Corp Hgb Conc. 31.9 g/dL (33.0-37.0); Mean Corpuscular Hgb 31.8 pg (27.0-31.0); Mean Corpuscular Volume 99.7 fL (80.0-94.0); Mean Platelet Volume 9.6 fL (7.4-10.4); Nucleated Red Blood Cells % 0 % (-); Platelet Count 304 10^3/uL (130-400); Red Blood Cell Count 3.08 10^6/uL (4.70-6.10); Red Cell Dist. Width 16.8 % (11.5-14.5); White Blood Cell Count 15.6 10^3/uL (4.8-10.8)
[2024-07-06] MEDS: VANCOCIN 530 MG IV (15:54)
--- NOTE | 2024-07-06 17:13 | HPS.HSE ---
Addendum entered and electronically signed by Rylan Mauricio MD 07/06/24 18:21:
58-year-old male bedridden with contractures after history of CVA lives at home and being taken care of by caregivers and brought in because visiting nurses noted that he has a toe with redness and ulceration
Patient is nonverbal noted that it has been there for several days no fever
Past history -patient had a stroke in 2021 he was admitted here with COVID and was not vaccinated at that time. Patient refused remdesivir. He was started on steroids respiratory status got worse. His hospitalization was complicated with large
pneumomediastinum. He also went into atrial fibrillation for which he was started on amiodarone and diltiazem. Heparin was also started . CAT scan of the head at that time showed multiple large area of cerebral infarction with areas of
hemorrhagic transformation with diffuse cerebral edema midline shift. He was transferred to [facility] neuro ICU. PEG tube was placed during that admission and was discharged to local halfway it is unclear if he remained at [facility] from
August to December of 2021. He suffered anoxic brain injury. Tracheostomy has since been removed it is slowly closing. Patient has a GJ tube. He has multiple contractures and is being taken care of at home by caregivers. After reviewing notes from
January 2022 hospice was recommended at that time but did not want that. Patient was since then admitted to [facility] and again to [facility] in June 2024 with hypotension was found to have ESBL UTI and sepsis. He was
discharged on p.o. antibiotics.
I personally performed a history and physical exam of the patient and discussed management with the resident. I reviewed the resident's note and agree with the documented findings and plan of care HPI/CC except for changes in my documentation
On examination patient states that you without any interaction or tracking. He appears to be scared when touched.
Tracheostomy-stoma still patent-closing
Contractures with bilateral knees completely flexed and drawn to chest. Also has upper extremity contractures
Skin with multiple ulcers-pressure injury right hip, sacrum, small ulcerations on the toes, ulcer on the second toe on the left. No crepitus noted
Abdomen soft and nontender. GJ tube
No edema
# Ulcer on the second toe
X-ray with osteomyelitis
MRI cannot be obtained because of contracture
Podiatry evaluation to see if he needs amputation
IV Vanco and Azactam after wound cultures
Wound care consultation
He has good pulses dorsalis pedis I think the ulcers are secondary to his contracture and pressure
# Multiple pressure injury present on admission right buttocks lower extremities, sacrum-wound care evaluation. Turn patient every 2 hours
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 Patient is unvaccinated
# Paroxysmal atrial fibrillation-continue amiodarone, metoprolol. Not on anticoagulation
# Seizures-continue valproic acid and Keppra
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
# Hyperlipidemia-continue atorvastatin
# History of ESBL UTI
# Chronic dysphagia-has a GJ tube. Dietary evaluation for tube feeds
# Chronic anemia-iron studies from earlier this month noted
# Hypoalbuminemia
# DVT prophylaxis-Lovenox
# DNR status per discussion with patient's
Detailed discussion with the patient's on the phone regarding patient's condition plan of care. I also broached about patient's quality of life given his contractures. She agreed that his quality of life is poor but does not want him to be on
hospice right now. I encouraged her to talk to patient's brother and sister about his condition and come up with what is best for him. Palliative care has been suggested for him and she is yet to meet with the palliative care person as outpatient.
Over all prognosis poor.
Part of this note was created using voice recognition system. Occasional wrong word or��sound alike� substitutions may have inadvertently occurred due to the inherent limitations of voice recognition software. If noted kindly bring it to my
attention for correction.
Time spent over 75 minutes
Original Note:
Family Physician
-
Family Physician: Vesta PATEL
Chief Complaint
-
Left second toe wound
History of Present Illness
History obtained from previous chat and talking to on the phone. 58-year-old male with PMH of anoxic brain injury, nonverbal, complicated COVID infection with cardiac arrest s/p tracheostomy, GJ tube, A-fib, chronic hypoxic respiratory failure
(has trach) with colar Functional contractures, functional quadriplegia, who presented to ED on 07/06/2024 with concerns for left second toe infection. Patient was recently discharged on 06/19/24 after a 1 week stay for severe sepsis due to ESBL
E. coli UTI. Patient lives at home with his and has 24 hours home health nurse at home. His stated that patient developed redness and swelling of the left second toe about 2 days ago and then a sore. He also developed low-grade fever
this morning and the home health nurse recommended he go to the ER for evaluation. On arrival, his BP 116/75, afebrile, pulse 93, respiratory 18, saturating at 94% 3 L O2. His WBC count was 15.6, Hb 9.8, creatinine 1.1, albumin 2.9. Further
history not possible since patient is nonverbal.
Medical History
Past Medical History
Past Medical History: Reports Hypercholesterolemia and Other
Additional Past Medical History:
Esophageal ring
Esophagitis
Paroxysmal A-fib
Seizures
Iron deficiency anemia
Anemia of chronic disease
Anoxic brain injury
Past Surgical History: Reports Appendectomy and Tonsilectomy
Social History
Unable to obtain full social history at this time due to: Patient Non-verbal
Family History
Family History: Not pertinent
Allergies / Home Medications
Allergies reflects when Allergies were last updated in [employer].
Home Medications with original date entered in [employer]
Allergy/Medication List:
Allergies
Allergy/AdvReac Type Severity Reaction Status Date / Time
phenobarbital Allergy Unknown Verified 07/06/24 14:48
Home Medications
acetaminophen 325 mg tablet 650 mg feeding tube Q4HPRN PRN mild pain, temp>100.4 12/30/21
albuterol sulfate 2.5 mg/3 mL (0.083 %) solution for nebulization 2.5 mg inhalation R [id number] PRN sob 12/30/21
amiodarone 200 mg tablet (Pacerone) 200 mg feeding tube DAILY AFIB 12/30/21
atorvastatin 40 mg tablet 40 mg feeding tube HS High cholesterol 12/30/21
arginine 7 gram-glutam 7 gram-CaHMB 1.5 [id number] oral pwd pkt (Jose (with collagen)) 1 packet PO DAILY Supplement 06/12/24
ascorbic acid (vitamin C) 500 mg tablet (Vitamin C) 500 mg feeding tube DAILY Supplement 06/12/24
calcium caseinate-whey 7.5 gram oral packet (ProSource) 1 packet PO DAILY Supplement 06/12/24
ferrous sulfate 300 mg (60 mg iron)/5 mL oral liquid 300 mg feeding tube BID Supplement 06/12/24
levetiracetam 100 mg/mL oral solution (Keppra) 750 mg feeding tube BID Neurological Condition 06/12/24
valproic acid (as sodium salt) 250 mg/5 mL oral solution 125 mg feeding tube BID Neurological Condition 06/12/24
metoprolol tartrate 25 mg tablet 25 mg feeding tube Q12 30 days #60 tabs 06/19/24
collagenase clostridium histo. 250 unit/gram topical ointment (Santyl) 1 applic topical DAILY 07/06/24
sodium hypochlorite 0.125 % solution (H-Chlor 12) 1 applic topical DAILY 07/06/24
Review of Systems
-
Unable to obtain full review of systems at this time due to: Patient Non-verbal
Physical Exam
Vital Signs
Vital Signs
Temp Pulse Resp BP Pulse Ox
99.8 F 96 27 93/76 94
07/06/24 13:17 07/06/24 16:30 07/06/24 16:30 07/06/24 16:06 07/06/24 13:17
Physical Exam
General: Cachectic and Other (Severely contracted)
HEENT: Thrush and Tracheostomy Collar
Respiratory: Rhonchi
Cardiac: S1/S2 and Irregular Rhythm; No Murmur
GI: Soft and Other (GJ tube)
Genito-urinary: Other (Condom catheter)
Skin: Ulcers (Right hip and sacral)
Neuro: Awake; No Alert, Oriented or AO x 3
Psych: Calm
Laboratory Results
-
07/06/24 13:40
07/06/24 13:40
Laboratory Results
Lactic Acid 1.3 mmol/L (0.7-2.0) 07/06/24 13:40
Total Bilirubin 0.2 mg/dl (0.2-1.3) 07/06/24 13:40
AST 25 U/L (17-59) 07/06/24 13:40
ALT 37 U/L (0-50) 07/06/24 13:40
Alkaline Phosphatase 152 U/L (38-126) H 07/06/24 13:40
Data Reviewed
-
Diagnostic Radiology: Image Personally Visualized and interpreted, Report Reviewed by me, Discussed with Physician and Discussed with Family
Lab Data: Labs Reviewed by me and Discussed with Physician
Old Records: Reviewed
Impression/Plan
-
IMPRESSION: 58-year-old male with PMH of anoxic brain injury, nonverbal, functional quadriplegia who presented to ED on 07/06 for concerns of left second toe infection.
Assessment/plan:
#Left second toe injury/infection
-Admit to [facility]
-Presented with left second toe open sore and leukocytosis and low-grade fever, no crepitus on exam.
-Suspect osteomyelitis, erosion of second toe distal PIP joint seen on left foot x-ray.
-Obtain blood and wound cultures.
-Started on vancomycin, added aztreonam for gram-negative coverage.
-Podiatry consult.
#Sepsis-history of ESBL E. coli UTI.
-Suspect source include multiple stage IV pressure injuries in the sacrum and right hip.
-Obtain and follow wound cultures, blood cultures, urinalysis with reflex to culture.
-Continue antibiotics as above.
-Will give a bolus of NSS.
#Multiple stage IV pressure injuries (POA)
-Multiple pressure injuries noted on sacrum, right hip, right lema, right elbow.
-Wound care consult.
-Continue antibiotics and follow temperature curve.
#Chronic iron deficiency anemia�anemia of chronic disease
-Hb stable at 9.8 (baseline). No evidence of active bleeding.
-Continue iron supplementation.
-Follow CBC.
#Paroxysmal A-fib
-Rate controlled on metoprolol. Patient also on amiodarone.
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
#History of anoxic brain injury�from multiple strokes.
-Quadriplegic s/p trach and GJ tube.
#Suspected severe protein malnutrition with hypoalbuminemia
-Tube feeds.
-Dietary consult.
#History of seizures
-Continue valproic acid and Keppra.
DVT PPx: Lovenox
CODE STATUS-DNR
[2024-07-06] MEDS: STERILE WATER FOR INJECTION 10 ML IV (20:54)
[2024-07-06] MEDS: AZACTAM 1000 MG IV (20:55)
--- NOTE | 2024-07-06 21:05 | TRANSFER ---
Pt admitted to the unit from ED. Pt pulled over to bed from stretcher. Pt nonverbal. Suctioning set up. Respiratory therapy notified of trach stoma. HOB raised. Q2T. Plan of care ongoing.
[2024-07-06] MEDS: NSS 1000 IV (23:08)
[2024-07-06] MEDS: LOVENOX 40 MG SC (23:17)
[2024-07-06] MEDS: FERROUS SULFATE ORAL LIQUID 300 MG TUBE (23:18)
[2024-07-06] MEDS: DEPAKENE 125 MG TUBE (23:18)
[2024-07-06] MEDS: LIPITOR 40 MG TUBE (23:19)
[2024-07-06] MEDS: KEPPRA 750 MG TUBE (23:20)
[2024-07-06] MEDS: LOPRESSOR 25 MG TUBE (23:24)
[2024-07-07 00:15] VITALS: BMI 16.8
[2024-07-07] MEDS: STERILE WATER FOR INJECTION 10 ML IV ×3 (03:41→17:48)
[2024-07-07] MEDS: AZACTAM 1000 MG IV ×3 (03:41→17:48)
[2024-07-07 03:47] VITALS: BP 104/67
[2024-07-07 07:00] VITALS: BP 120/71
[2024-07-07 07:11] LABS: Urine Albumin Trace (Neg - Trace); Urine Bilirubin Negative (Negative); Urine Character Clear (Clear); Urine Color Yellow; Urine Glucose Negative (Negative); Urine Ketone Negative (Negative); Urine Leukocyte 2+ (Negative); Urine Nitrite Negative (Negative); Urine Occult Blood Negative (Negative); Urine Urobilinogen Negative (Neg - 1+); Urine pH 6.5 (5.0-9.0)
[2024-07-07 07:29] LABS: Urine Bacteria Moderate (Negative); Urine Red Blood Cell 0-2 /HPF (0-2); Urine White Cell 40-50 /HPF (0-5)
--- NOTE | 2024-07-07 07:35 | W.PN.HOSP.TC ---
Addendum entered and electronically signed by Rylan Mauricio MD 07/07/24 16:19:
58-year-old male bedridden with contractures after history of CVA lives at home and being taken care of by caregivers and brought in because visiting nurses noted that he has a toe with redness and ulceration
Patient is nonverbal noted that it has been there for several days no fever
Past history -patient had a stroke in 2021 he was admitted here with COVID and was not vaccinated at that time. Patient refused remdesivir. He was started on steroids respiratory status got worse. His hospitalization was complicated with large
pneumomediastinum. He also went into atrial fibrillation for which he was started on amiodarone and diltiazem. Heparin was also started . CAT scan of the head at that time showed multiple large area of cerebral infarction with areas of
hemorrhagic transformation with diffuse cerebral edema midline shift. He was transferred to [facility] neuro ICU. PEG tube was placed during that admission and was [facility] it is unclear if he remained at [facility] from
August to December of 2021. He suffered anoxic brain injury. Tracheostomy has since been removed it is slowly closing. Patient has a GJ tube. He has multiple contractures and is being taken care of at home by caregivers. After reviewing notes from
January 2022 hospice was recommended at that time but did not want that. Patient was since then admitted to [facility] and again to [facility] in June 2024 with hypotension was found to have ESBL UTI and sepsis. He was
discharged on p.o. antibiotics.
I saw and evaluated the patient. I reviewed the resident�s note and agree with findings and plan as documented in the resident�s note except for changes in my documentation.
On examination patient states that you without any interaction or tracking. He appears to be scared when touched.
Tracheostomy-stoma still patent-closing
Contractures with bilateral knees completely flexed and drawn to chest. Also has upper extremity contractures
Skin with multiple ulcers-pressure injury right hip, sacrum, small ulcerations on the toes, ulcer on the second toe on the left. No crepitus noted
Abdomen soft and nontender. GJ tube
No edema
# Ulcer on the left second toe dorsal aspect
X-ray with osteomyelitis
MRI cannot be obtained because of contracture
Podiatry evaluation to see if he needs amputation
IV Vanco and Azactam after wound cultures
Wound care consultation
He has good pulses dorsalis pedis I think the ulcers are secondary to his contracture and pressure from rubbing .
# Multiple pressure injury present on admission right hip, left iliac area, right iliac, right lateral elbow, right medial lower leg, right lateral foot, stage IV sacral pressure injury -wound care evaluation appreciated. Turn patient every 2
hours. Local wound care
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 Patient is unvaccinated
# Paroxysmal atrial fibrillation-continue amiodarone, metoprolol. Not on anticoagulation
# Seizures-continue valproic acid and Keppra
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
# Hyperlipidemia-continue atorvastatin
# History of ESBL UTI
# Chronic dysphagia-has a GJ tube. Dietary evaluation for tube feeds
# Chronic anemia-iron studies from earlier this month noted
# Hypoalbuminemia
# DVT prophylaxis-Lovenox
# DNR status per discussion with patient's
07/06/24-Detailed discussion with the patient's on the phone regarding patient's condition plan of care. I also broached about patient's quality of life given his contractures. She agreed that his quality of life is poor but does not want him
to be on hospice right now. I encouraged her to talk to patient's brother and sister about his condition and come up with what is best for him. Palliative care has been suggested for him and she is yet to meet with the palliative care person as
outpatient. Over all prognosis poor.
Today when spoke to , she confirmed no Hospice.
Discussed with podiatry today. Dr. Rivera Will discuss with patient's regarding options. Unfortunately he is not a great surgical candidate as wound healing may be negatively impacted by his contracture and movements.
Part of this note was created using voice recognition system. Occasional wrong word or��sound alike� substitutions may have inadvertently occurred due to the inherent limitations of voice recognition software. If noted kindly bring it to my
attention for correction.
Original Note:
Today's Communication/Plan
-
Continue to biotics
Wound care
ID consult
Follow blood and wound cultures
Follow fever curve
Assessment / Plan
Assessment / Plan
IMPRESSION: 58-year-old male with PMH of anoxic brain injury, nonverbal, functional quadriplegia who presented to ED on 07/06 for concerns of left second toe infection.
Assessment/plan:
#Left second toe injury/infection-Suspicious for osteomyelitis
-Toe wound culture growing Pseudomonas.
-Continue vancomycin and aztreonam, leukocytosis resolved.
-I called and discussed GOC with since amputation may not heal given patient is not ambulating.
-Wound care.
-ID consult.
-Podiatry following.
#Sepsis-history of ESBL E. coli UTI.
-Suspect source include multiple stage IV pressure injuries in the sacrum and right hip.
-Blood and wound cultures pending.
-Continue antibiotics as above.
#Multiple stage IV pressure injuries (POA)
-Multiple pressure injuries noted on sacrum, right hip, right lema, right elbow.
-Wound care.
-Continue antibiotics and follow temperature curve.
#Chronic iron deficiency anemia�anemia of chronic disease
-Hb stable at 9.3 (baseline). No evidence of active bleeding.
-Continue iron supplementation.
-Follow CBC.
#Paroxysmal A-fib
-Rate controlled on metoprolol. Patient also on amiodarone.
-Not on anticoagulation CULINARY CHEF.
#History of anoxic brain injury�from multiple strokes.
-Quadriplegic s/p trach and GJ tube.
#Suspected severe protein malnutrition with hypoalbuminemia
-Tube feeds.
-Dietary consult.
#History of seizures
-Continue valproic acid and Keppra.
DVT PPx: Lovenox
CODE STATUS-DNR After discussing with Pts .
Anticipated Discharge: > 48 hours
Subjective/Interval History
-
Date of Service: July 07, 2024
Patient seen and examined. Remains nonverbal. Did not respond to any of my questions. There was no acute events reported overnight by RN. Patient looks comfortable. I spoke to about goal of care for patient given that amputation may take
time to heal or not heal at all due to patient's comorbidities including poor nutrition, nonambulatory, and he is very contracted to get an MRI. Patient's is not considering hospice at this time. Would want patient to get an MRI regardless.
Discussed with food and beverage checker. Podiatry will call patient's to discuss further about treatment plans, risks and benefits of amputation.
Objective Data
-
Labs:
Laboratory Results
07/07/24
07:30
WBC Pending
Hgb Pending
Hct Pending
Plt Count Pending
Sodium Pending
Potassium Pending
Chloride Pending
Carbon Dioxide Pending
BUN Pending
Creatinine Pending
Glucose Pending
Calcium Pending
Vital Signs:
Vital Signs
Temp Pulse Resp BP Pulse Ox
98.2 F 69 16 104/67 99
07/07/24 03:47 07/07/24 03:47 07/07/24 03:47 07/07/24 03:47 07/07/24 03:47
I&O
07/06/24 07/07/24 07/08/24
06:59 06:59 06:59
Output Total 250 / 250
Balance -250 / -250
Review of Systems
-
Unable to obtain full review of systems at this time due to: Patient Non-verbal
Physical Exam
-
General: No Apparent Distress, Comfortable, Appears Chronically Ill, Cachectic and Other (contracted)
HEENT: Normocephalic, Atraumatic and Moist Mucous Membranes
Respiratory: Rhonchi, Non Labored Respirations and Other (trach collar); Negative Wheezes or Rales
Cardiac: Regular Rhythm and S1/S2; Negative Murmur, Rub or Gallop
GI: Soft, Nondistended and Normal Bowel Sounds
Musculoskeletal: No Cyanosis, No Edema and Other (Chronic contractures)
Skin: Warm, Dry and Ulcers (B/L Iliac, sacral, posterior hip, R lema, R lateral elbow ); Negative Rash
Neuro: Awake
Data Reviewed
-
Diagnostic Radiology: Image personally visualized and interpreted, Report Reviewed by me, Discussed with Physician and Discussed with Family
Labs: Labs Reviewed by me, Discussed with Physician and Discussed with Family
Old Records: Reviewed
[2024-07-07 08:54] LABS: Hematocrit 30.1 % (39.0-52.0); Hemoglobin 9.3 g/dL (13.0-18.0); Mean Corp Hgb Conc. 30.9 g/dL (33.0-37.0); Mean Corpuscular Hgb 31.7 pg (27.0-31.0); Mean Corpuscular Volume 102.7 fL (80.0-94.0); Mean Platelet Volume 9.9 fL (7.4-10.4); Platelet Count 286 10^3/uL (130-400); Red Blood Cell Count 2.93 10^6/uL (4.70-6.10); Red Cell Dist. Width 16.5 % (11.5-14.5); White Blood Cell Count 10.4 10^3/uL (4.8-10.8)
[2024-07-07 08:55] LABS: Blood Urea Nitrogen 35 mg/dl (9-20); Calcium 9.6 mg/dl (8.4-10.2); Carbon Dioxide 26 mmol/L (22-30); Chloride 104 mmol/L (98-107); Estimated Creatinine Clearance 54 ml/min; Glucose 79 mg/dl (70-99); Potassium 4.5 mmol/L (3.5-5.1); Sodium 140 mmol/L (135-145); eGFR > 60.00
[2024-07-07] MEDS: KEPPRA 750 MG TUBE ×2 (08:59→21:32)
[2024-07-07] MEDS: VITAMIN C 500 MG TUBE (08:59)
[2024-07-07] MEDS: PACERONE 200 MG TUBE (08:59)
[2024-07-07] MEDS: FERROUS SULFATE ORAL LIQUID 300 MG TUBE ×2 (08:59→21:32)
[2024-07-07] MEDS: LOPRESSOR 25 MG TUBE ×2 (09:00→21:34)
[2024-07-07] MEDS: DAKIN'S SOLUTION 0.125% 1/4 STRENGTH 473 ML TOPICAL (09:06)
[2024-07-07] MEDS: DEPAKENE 125 MG TUBE ×2 (09:08→21:30)
[2024-07-07 11:00] VITALS: BP 114/67
[2024-07-07 11:06] VITALS: BMI 16.8
[2024-07-07] MEDS: NSS 1000 IV (11:55)
[2024-07-07] MEDS: SANTYL OINTMENT 1 APPLIC TOPICAL (14:45)
--- NOTE | 2024-07-07 14:46 | WOUNDNOTE ---
L 2ND TOE DORSAL
--- NOTE | 2024-07-07 14:47 | WOUNDNOTE ---
OVERVIEW OF BACKSIDE
--- NOTE | 2024-07-07 14:51 | WOUNDNOTE ---
L MEDIAL LOWER LEG
--- NOTE | 2024-07-07 14:51 | WOUNDNOTE ---
R MEDIAL LOWER LEG
--- NOTE | 2024-07-07 14:53 | WOUNDNOTE ---
WON RN note: Patient admitted with open L toe wound.
See H&P for complete history. Lives at home with and caregivers. He is current with [facility].
PMH: bedbound, immobile and severely contracted with multiple stage 4 pressure injuries, complicated Covid infection with cardiac arrest and anoxic brain injury, CVA, GJ tube and Trach.
Wound Location and type/assessment: Patient known to service, last seen 06/15/24 admitted with same multiple stage 4 sacral, bilateral iliac, R hip, R medial leg and R lateral elbow pressure injuries. All wounds appear mold sheet cleaner with exception of L
iliac wound, pale yellow adherent slough at base. Nurse Celeste assisted with care, patient severely retracted, difficult to pull legs apart to assess wounds. Heels are intact, R lateral foot with stage 3 PI, pink mixed with brody slough. R medial
elbow with healing stage 2 pressure injury. R lateral elbow with healing smaller stage 4 PI. lower spine with healing stage 2 PI, proximal spine with stage 1 PI. L dorsal 2nd toe with redness and moist scab, Podiatry on consult and saw patient
earlier today, dry dressing applied by Dr. Cool. X ray of L 2nd toe- suspected osteo.
Appetite: NPO, on tube feeding.
Pressure redistribution devices in place: On air overlay, air cushion under heels. Folded blanket btw knees/legs. Patient very contracted and difficult to turn. Called Bed tech for [facility] air bed, nurse aware and will transfer to bed.
Plan: Dressings changed on all wounds, Santyl and Dakin's moistened gauze to dry dressing already on order. Protective foams applied to heels and L medial lower leg. Patient turned to R semi side lying position with padding under contracted limbs.
Patient high risk for worsening or additional pressure injuries despite preventative measures.
Will confirm orders with Dr. Mauricio and defer to Podiatry for L 2nd toe ulcer, dry dressing in place.
Care plan to be updated and will follow as needed.
Note to case management of equipment requested for discharge: air mattress
[2024-07-07 15:08] VITALS: BP 126/74
--- NOTE | 2024-07-07 15:21 | CM ---
TC to patients spouse Karyna for [place].
Pt is bedbound and requires a kaylee for transfers.
He is total care and does not participate in any self care.
Patient is non-verbal and not able to make needs known.
She notes he is mostly unresponsive and rarely opens eyes.
Multiple wounds requiring wound care which spouse has been providing care.
Has trach stoma and remains on TF via GJ tube.
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
Tube feeds are provided by [facility].
Plan is home with resumption of care.
Patient will require ambulance transport.
PCP: Dr Florian
Pharmacy: [facility]
Plan: home with [facility]/ [facility] (referral vis [facility])
--- NOTE | 2024-07-07 15:54 | CON.ID ---
Consultation
-
Date/Time Consultation Requested: 07/07/2024 1156
Date/Time Consultation Performed: 07/07/2024 1540
Requesting Provider: Dr. Todd
Performing Provider: Dr. Daigle
Reason for Consultation: Left second toe infection
Chief Complaint / Past History
History of Present Illness
Ruben Levi is a 58-year-old male being evaluated at the request of Dr. Todd regarding left second toe infection. History is obtained from chart review alone as the patient has a significant past medical history of anoxic brain injury and
is functionally quadriplegic with advanced contractures of all extremities.
The patient presents to the emergency room at [facility] on 07/06/2024 via EMS from home. Evidently a visiting RN noticed a wound on the left second toe and advised further workup. It is not known how long that wound has been present, and
patient can provide no history for me at this time.
Past History
Additional Past Medical History:
Seizure disorder
A-fib
TBI
Functional quadriplegia
Additional Past Surgical History:
PEG tube
Tracheostomy
Allergy History:
phenobarbital Allergy (Verified 07/06/24 14:48)
Unknown
Medications Reviewed: Yes
Current Antibiotics:
Vancomycin
Aztreonam
Social History
Tobacco: Non-Smoker
Alcohol: None
Drug: None
Personal:
Living: With Family
Employment: Disabled
Review of Systems
Vital Signs
Temp Pulse Resp BP Pulse Ox
97.9 F 97 18 126/74 99
07/07/24 15:08 07/07/24 15:08 07/07/24 15:08 07/07/24 15:08 07/07/24 15:08
Physical Exam
Physical Exam
Constitutional: No Acute Distress, Comfortable and Non-toxic
Eyes: No Conjunctival Hemorrhage and Sclera Anicteric
Oral: No Thrush and No Ulcers
Cardiovascular: S1/S2; Negative S3/S4
Pulmonary: Clear and Other (Trach collar in place); Negative Wheezes or Rales
Gastrointestinal: Soft, Non Distended and Other (PEG tube in place)
Genito-Urinary: Prince (Condom catheter) and Clear Urine
Extremities: Negative Edema or Cyanosis
Musculoskeletal: Other (All extremities with advanced contracture)
Skin: Warm and Dry; Negative Rash or Jaundice
Wound: Other (Left second toe with wound on the dorsal surface over the proximal phalanges. Multiple sacral and hip decubiti wounds.)
Neurological: Awake and Other (Nonverbal)
.
Lab / Diagnostic Study Results
07/07/24 07:30
07/07/24 07:30
Abs Immat Gran (auto) 0.1 10^3/uL (0-0.05) H 07/06/24 13:40
Absolute Neuts (auto) 11.9 10^3/uL (1.4-6.5) H 07/06/24 13:40
Absolute Lymphs (auto) 1.5 10^3/uL (1.2-3.4) 07/06/24 13:40
Absolute Monos (auto) 1.3 10^3/uL (0.1-0.6) H 07/06/24 13:40
Absolute Basos (auto) 0.1 10^3/uL (0-0.2) 07/06/24 13:40
Immature Gran % 0.4 % (0-0.5) 07/06/24 13:40
Neutrophils % 76.4 % (42.2-75.2) H 07/06/24 13:40
Lymphocytes % 9.8 % (20.5-51.1) L 07/06/24 13:40
Monocytes % 8.6 % (1.7-9.3) 07/06/24 13:40
Eosinophils % 4.2 % (0-6) 07/06/24 13:40
Basophils % 0.6 % (0-2) 07/06/24 13:40
Lactic Acid 1.3 mmol/L (0.7-2.0) 07/06/24 13:40
Microbiology Results
Micro:
07/06/24 15:53 Wound Culture - Preliminary
Toe Pseudomonas aeruginosa
Gram Stain - Preliminary
07/07/24 06:28 Urine Culture - Pending
Urine
07/07/24 03:53 MRSA Screen - Pending
Nose
07/06/24 15:52 Blood Culture - Pending
Blood/Venous
07/06/24 15:52 Blood Culture - Pending
Blood/Venous
Imaging:
07/06/2024 X-ray left foot: Changes of prior amputation of the first digit and distal aspect of the first metatarsal. There is soft tissue swelling involving the left second toe. There is cortical irregularity and erosion within the proximal
interphalangeal joint and distal aspect of the second proximal phalanx.
Assessment / Plan
Suspected osteomyelitis of left second toe
Multiple decubiti wounds
Seizure disorder
A-fib
TBI
Functional quadriplegia
Recommendations:
Wound cultures currently revealed presence of Pseudomonas, although no bone cultures obtained as of yet, and antibiotics have already been started which would likely affect their validity.
Imaging suggests disease (osteomyelitis) localized to the first phalanges and first MTP joint.
Patient is functionally quadriplegic.
Overall, would favor toe amputation and short course of IV antibiotics rather than a prolonged course of antibiotics (6 weeks), especially given patient's none ambulatory state.
Will await further input from Podiatry. Continue current antibiotics pending final culture data.
Care Review
Plan reviewed with: Physician (Resident)
--- NOTE | 2024-07-07 16:28 | PHA.VAN.IN ---
Assessment
- Assessment
Renal Function: Other (06/16/24 BASELINE SCR: 0.9)
Concomitant Antimicrobials: AZTREONAM
- Previous Dosing Experience
Previous Regimen: DOSING BY RANDOM LEVELS
Date of Regimen: 01/15/22
Provided Trough of: unknown
Provided AUC of: UNKNOWN
Patient's SCR is: Decreased compared to previous dosing experience (01/15/22 SCR = 2.1)
Patient's weight is: Decreased compared to previous dosing experience (01/15/22 WT = 61.9 KG)
AUC Dosing Plan
- Dosing Variables
Dosing Weight (kg): 73
Dosing CrCl (ml/min): 74
Vd coefficient (L/kg): 0.7
- Empiric Dosing
Initial / Loading Dose: 1500MG
Maintenance Regimen: 750MG IV Q12H
Estimated AUC (mcg*h/mL): 461
Estimated Peak (mcg*h/mL): 26.9
Estimated Trough (mcg/ml): 13
Estimated Half Life (H): 10.5
Pharmacokinetics Vancomycin I
- -
Patient Age: 58
Patient Sex: Male
Vancomycin Day #: 1
Indication: Skin And Soft Tissue (TOE INFECTION)
Requesting Provider: ARIELLE
Height / Weight:
Height 5 ft 10 in
Actual Weight 53.127 kg
IBW in k KG
Pertinent Past Medical History: SEIZURES;SABIHA; QUADRAPLEGIA
- Vital Signs / Lab Results
Temp Pulse Resp BP Pulse Ox
97.9 F 97 18 126/74 99
07/07/24 15:08 07/07/24 15:08 07/07/24 15:08 07/07/24 15:08 07/07/24 15:08
Lab Results - Hematology
07/06/24 07/07/24
13:40 07:30
WBC 15.6 H 10.4
Lab Results - Chemistry
07/06/24 07/07/24
13:40 07:30
BUN 38 H 35 H
Creatinine 1.1 1.1
Estimated Creat Clear 54
Albumin 2.9 L
07/06/24
13:40
Lactic Acid 1.3
Lab Results - Urine
07/07/24
06:28
Urine Nitrite (Reflex) Negative
Leukocyte Esterase Rfl 2+ A
Urine WBC (Reflex) 40-50 A
Urine Bacteria (Reflex) Moderate A
Microbiology Results
07/06/24 15:52 Blood Culture - Preliminary
Blood/Venous No Growth in 24 hours- Final report to follow
07/06/24 15:52 Blood Culture - Preliminary
Blood/Venous No Growth in 24 hours- Final report to follow
07/06/24 15:53 Wound Culture - Preliminary
Toe Pseudomonas aeruginosa
Gram Stain - Preliminary
[2024-07-07] MEDS: FOLVITE 50.2 MG IV (17:48)
[2024-07-07] MEDS: LOVENOX 40 MG SC (17:48)
--- NOTE | 2024-07-07 17:55 | W.CS.POD ---
Consult Summary - Podiatry
-
58-year-old male bedridden with lower leg contractures after history of CVA, lives at home and being taken care of by caregivers and brought in because visiting nurses noted that he has a left 2nd toe with redness and ulceration. Patient is
nonverbal, Most of the history Obtained from the chart, patient currently in no acute distress, patient with no fever chills .
I have reviewed the chart past medical history, medications and allergies
Physical examination intact pedal pulses both feet, mild edema to both feet.
Left second toe PIPJ joint with deep ulceration with exposed bone, there is minimal local erythema and edema to the left second toe
Right foot lateral fifth met base and right big toe area with superficial stable ulcerations which are stable, no signs of drainage, no erythema
X-rays showing possible osteomyelitis of the distal proximal phalanx with bony erosion
WBC count trending down 15> 10.5
Assessment and plan : Left foot cellulitis with left second toe osteomyelitis at PIPJ
Chronic toe ulceration LT 2nd toe
Stable Rt foot ulcerations
Patient history of CVA with tracheostomy
severely contracted limbs
Plan: continue antibiotics per ID
I have discussed case with Dr. Hang Fagan about exposed bone probably need a partial toe amputation, discussed concerns with healing due to his contractures
I have called patient's Karyna and discussed about osteomyelitis and need for partial amputation of the toe versus long-term antibiotics, patient's would like to go with partial toe amputation
I have discussed all the risks and complications of nonhealing, re infection, more surgical amputations etc no guarantees given to save the limb or life
Will plan for partial toe amputation after medical clearance.
Podiatry will follow
[2024-07-07 19:46] VITALS: BP 129/84
[2024-07-07] MEDS: LIPITOR 40 MG TUBE (22:40)
[2024-07-07 22:54] VITALS: BP 119/70
[2024-07-08] VITALS (7 sets, daily range): BP systolic 110–132; BP diastolic 66–88
[2024-07-08] MEDS: AZACTAM 1000 MG IV ×2 (01:43→08:44)
[2024-07-08] MEDS: STERILE WATER FOR INJECTION 10 ML IV ×3 (01:44→16:54)
[2024-07-08] MEDS: VANCOCIN 150 IV (05:36)
--- NOTE | 2024-07-08 07:19 | W.PN.HOSP.TC ---
Addendum entered and electronically signed by Rylan Mauricio MD 07/08/24 17:54:
I saw and evaluated the patient. I reviewed the resident�s note and agree with findings and plan as documented in the resident�s note.
Skin with multiple ulcers-pressure injury right hip, sacrum, small ulcerations on the toes, ulcer on the second toe on the left. No crepitus noted
Abdomen soft and nontender. GJ tube
No edema
# Ulcer on the left second toe dorsal aspect
X-ray with osteomyelitis
Podiatry planning for amputation tomorrow
Antibiotics changed to cefepime by infectious disease
He has good pulses dorsalis pedis I think the ulcers are secondary to his contracture and pressure from rubbing .
# Abnormal EKG-routine echo as it might be difficult for him to get an outpatient echo
# Multiple pressure injury present on admission right hip, left iliac area, right iliac, right lateral elbow, right medial lower leg, right lateral foot, stage IV sacral pressure injury -wound care evaluation appreciated. Turn patient every 2
hours. Local wound care
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 Patient is unvaccinated
# Paroxysmal atrial fibrillation-continue amiodarone, metoprolol. Not on anticoagulation
# Seizures-continue valproic acid and Keppra
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
# Hyperlipidemia-continue atorvastatin
# History of ESBL UTI
# Chronic dysphagia-has a GJ tube. Dietary evaluation for tube feeds
# Chronic anemia-iron studies from earlier this month noted
# Bifascicular block on EKG-chronic
# Hypoalbuminemia
# DVT prophylaxis-Lovenox
# DNR status per discussion with patient's
Discussed with podiatry
Discussed with and updated
Part of this note was created using voice recognition system. Occasional wrong word or��sound alike� substitutions may have inadvertently occurred due to the inherent limitations of voice recognition software. If noted kindly bring it to my
attention for correction.
Original Note:
Today's Communication/Plan
-
MRSA colonized
Continue antibiotics
Plan for partial toe amputation
Assessment / Plan
Assessment / Plan
IMPRESSION: 58-year-old male with PMH of anoxic brain injury, nonverbal, functional quadriplegia who presented to ED on 07/06 for concerns of left second toe infection.
Assessment/plan:
#Left second toe ulcer with exposed bone-Suspicious for osteomyelitis
-Toe wound culture growing Pseudomonas susceptible to aztreonam.
-Partial toe amputation per podiatry.
-Continue vancomycin and aztreonam per ID.
-ID appreciated.
-Pt stands moderate risks for the proposed procedure.
-Wound care.
-Podiatry following.
#Superficial stable ulcerations of right lateral fifth and great toes.
-No drainage no erythema.
-Continue wound care.
#MRSA colonized.
-Contact precautions.
-Continue vancomycin.
#Sepsis-history of ESBL E. coli UTI.
-Suspect source include multiple stage IV pressure injuries in the sacrum and right hip.
-Blood and wound cultures pending.
-Continue antibiotics as above.
#Multiple stage IV pressure injuries (POA)
-Multiple pressure injuries noted on sacrum, right hip, right lema, right elbow.
-Wound care.
-Continue antibiotics and follow temperature curve.
#Chronic iron deficiency anemia�anemia of chronic disease
-Hb stable at 9.3 (baseline). No evidence of active bleeding.
-Continue iron supplementation.
-Follow CBC.
#Paroxysmal A-fib
-Rate controlled on metoprolol. Patient also on amiodarone.
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
#History of anoxic brain injury�from multiple strokes.
-Quadriplegic s/p trach and GJ tube.
#Suspected severe protein malnutrition with hypoalbuminemia
-Tube feeds.
-Dietary consult.
#History of seizures
-Continue valproic acid and Keppra.
DVT PPx: Lovenox
CODE STATUS-DNR After discussing with Pts .
Anticipated Discharge: > 48 hours
Subjective/Interval History
-
Date of Service: July 08, 2024
I saw and evaluated patient. Remains nonverbal, does not show any sign of pain with abdominal palpation, has normal bowel sounds, scattered rhonchi on lungs auscultation. Otherwise vitals are stable, leukocytosis resolved, hemoglobin gradually
trending down 9.8 >9.3 > 8.7. Patient looks comfortable and in no acute distress.
Objective Data
-
Labs:
Laboratory Results
07/08/24
06:57
WBC Pending
Hgb Pending
Hct Pending
Plt Count Pending
Sodium Pending
Potassium Pending
Chloride Pending
Carbon Dioxide Pending
BUN Pending
Creatinine Pending
Glucose Pending
Calcium Pending
Vital Signs:
Vital Signs
Temp Pulse Resp BP Pulse Ox
98.1 F 84 16 110/66 99
07/08/24 03:00 07/08/24 03:00 07/08/24 03:00 07/08/24 03:00 07/08/24 03:00
I&O
07/07/24 07/08/24 07/09/24
06:59 06:59 06:59
Intake Total 560 / 560 840 / 840 540 / 540
Output Total 250 / 250 1150 / 1150
Balance 310 / 310 -310 / -310 540 / 540
Review of Systems
-
Unable to obtain full review of systems at this time due to: Patient Non-verbal
Physical Exam
-
General: No Apparent Distress, Comfortable, Appears Chronically Ill, Cachectic and Other (contracted)
HEENT: Normocephalic, Atraumatic and Moist Mucous Membranes
Respiratory: Rhonchi, Non Labored Respirations and Other (trach collar); Negative Wheezes or Rales
Cardiac: Regular Rhythm and S1/S2; Negative Murmur, Rub or Gallop
GI: Soft, Nondistended and Normal Bowel Sounds
Musculoskeletal: No Cyanosis, No Edema and Other (Chronic contractures)
Skin: Warm, Dry and Ulcers (B/L Iliac, sacral, posterior hip, R lema, R lateral elbow ); Negative Rash
Neuro: Awake
Psych: Calm
Data Reviewed
-
Diagnostic Radiology: Image personally visualized and interpreted, Report Reviewed by me, Discussed with Physician and Discussed with Family
Labs: Labs Reviewed by me, Discussed with Physician and Discussed with Family
Old Records: Reviewed
[2024-07-08 07:53] LABS: Hematocrit 27.1 % (39.0-52.0); Hemoglobin 8.7 g/dL (13.0-18.0); Mean Corp Hgb Conc. 32.1 g/dL (33.0-37.0); Mean Corpuscular Hgb 32.7 pg (27.0-31.0); Mean Corpuscular Volume 101.9 fL (80.0-94.0); Mean Platelet Volume 9.7 fL (7.4-10.4); Platelet Count 273 10^3/uL (130-400); Red Blood Cell Count 2.66 10^6/uL (4.70-6.10); Red Cell Dist. Width 16.4 % (11.5-14.5); White Blood Cell Count 8.3 10^3/uL (4.8-10.8)
[2024-07-08 08:17] LABS: Blood Urea Nitrogen 31 mg/dl (9-20); Calcium 9.5 mg/dl (8.4-10.2); Carbon Dioxide 26 mmol/L (22-30); Chloride 109 mmol/L (98-107); Estimated Creatinine Clearance 54 ml/min; Glucose 114 mg/dl (70-99); Magnesium 2.4 mg/dl (1.6-2.3); Phosphorus 3.7 mg/dl (2.5-4.5); Sodium 142 mmol/L (135-145); eGFR > 60.00
[2024-07-08] MEDS: FERROUS SULFATE ORAL LIQUID 300 MG TUBE ×2 (08:42→21:28)
[2024-07-08] MEDS: DEPAKENE 125 MG TUBE ×2 (08:42→21:27)
[2024-07-08] MEDS: KEPPRA 750 MG TUBE ×2 (08:42→21:28)
[2024-07-08] MEDS: LOPRESSOR 25 MG TUBE ×2 (08:43→21:32)
[2024-07-08] MEDS: VITAMIN C 500 MG TUBE (08:43)
[2024-07-08] MEDS: PACERONE 200 MG TUBE (08:43)
[2024-07-08] MEDS: DAKIN'S SOLUTION 0.125% 1/4 STRENGTH 473 ML TOPICAL (08:54)
[2024-07-08] MEDS: NSS 1000 IV ×2 (08:55→16:55)
[2024-07-08 09:12] LABS: Vitamin B12 938 pg/ml (239-931)
--- NOTE | 2024-07-08 10:00 | PHA.VAN.FU ---
Vancomycin Assessment / Plan
- Assessment
Renal Function: Stable
WBC's are: WNL
In the past 24 hrs, patient has been: Afebrile
Concomitant Antimicrobials: aztreonam
- Dosing Plan
Adjust Regimen to: dosing by level
Patient BMI < 18.5; however, with elevated SCR & BUN, will hold off on dosing with CrCl calculated with IBW and follow levels for now
Additionally, CrCl may be overestimated with functional quadriplegia
- Monitoring Plan
Random Level: 07/09 0600
- Follow Up
Pharmacy will continue to follow.
Vancomycin Follow UP
- -
Patient Age: 58
Patient Sex: Male
Vancomycin Day #: 2
Indication: Skin And Soft Tissue
Requesting Provider: Dr. Mauricio / Piol
Pertinent Antimicrobial Allergies:
no pertinent antibiotic allergies
Height / Weight:
Height 5 ft 10 in
Actual Weight 53.127 kg
IBW in k
Pertinent Past Medical History: BMI ~16.8, functional quadriplegia
- Vital Signs / Lab Results
Temp Pulse Resp BP Pulse Ox
97.8 F 105 16 132/77 100
07/08/24 09:25 07/08/24 09:00 07/08/24 09:00 07/08/24 09:00 07/08/24 09:00
Lab Results - Hematology
07/06/24 07/07/24 07/08/24
13:40 07:30 06:57
WBC 15.6 H 10.4 8.3
Lab Results - Chemistry
07/06/24 07/07/24 07/08/24
13:40 07:30 06:57
BUN 38 H 35 H 31 H
Creatinine 1.1 1.1 1.1
Estimated Creat Clear 54 54
Albumin 2.9 L
07/06/24
13:40
Lactic Acid 1.3
Microbiology Results
07/07/24 03:53 MRSA Screen - Final
Nose Staph aureus MRSA
07/06/24 15:53 Wound Culture - Final
Toe Pseudomonas aeruginosa
Gram Stain - Final
07/06/24 15:52 Blood Culture - Preliminary
Blood/Venous No Growth in 24 hours- Final report to follow
07/06/24 15:52 Blood Culture - Preliminary
Blood/Venous No Growth in 24 hours- Final report to follow
--- NOTE | 2024-07-08 14:10 | W.PN.ID1 ---
Date of Service
Date of Service: July 08, 2024
Today's Communication
Narrow to cefepime alone.
Assessment / Plan
Suspected osteomyelitis of left second toe
Multiple decubiti wounds
Seizure disorder
A-fib
TBI
Functional quadriplegia
Recommendations:
Wound cultures only with Pseudomonas.
Imaging suggests disease (osteomyelitis) localized to the first phalanges and first MTP joint.
Patient is functionally quadriplegic.
Podiatry has evaluated patient, and he will be going for toe amputation.
Narrow antibiotics to cefepime alone.
Await amputation.
����������������������������������������������������������
Chief Complaint
-: Other (Left second toe osteomyelitis)
Subjective / Review of Systems
Patient seen and examined. No significant changes overnight.
Vital Signs / Physical Exam
Vital Signs
Vital Signs
Temp Pulse Resp BP Pulse Ox
98.5 F 74 24 126/75 99
07/08/24 11:09 07/08/24 11:09 07/08/24 11:09 07/08/24 11:09 07/08/24 11:09
Physical Exam
Constitutional: Chronically Ill, Non-toxic and Cachetic
Eyes: Sclera Anicteric
Cardiovascular: S1/S2; Negative S3/S4
Pulmonary: Non Labored
Wound: Other (Left second toe dressed. Dermal necrosis noted on the superior portion.)
Neurological: Awake and Other (Nonverbal)
Objective Data
Lab Data
Lab Results
07/08/24 06:57
07/08/24 06:57
Estimated Creat Clear 54 ml/min 07/08/24 06:57
Lactic Acid 1.3 mmol/L (0.7-2.0) 07/06/24 13:40
Total Bilirubin 0.2 mg/dl (0.2-1.3) 07/06/24 13:40
AST 25 U/L (17-59) 07/06/24 13:40
ALT 37 U/L (0-50) 07/06/24 13:40
Alkaline Phosphatase 152 U/L (38-126) H 07/06/24 13:40
Most recent labs reviewed.
Micro Results:
07/07/24 06:28 Urine Culture - Preliminary
Urine Pseudomonas aeruginosa
07/07/24 03:53 MRSA Screen - Final
Nose Staph aureus MRSA
07/06/24 15:53 Wound Culture - Final
Toe Pseudomonas aeruginosa
Gram Stain - Final
07/06/24 15:52 Blood Culture - Preliminary
Blood/Venous No Growth in 24 hours- Final report to follow
07/06/24 15:52 Blood Culture - Preliminary
Blood/Venous No Growth in 24 hours- Final report to follow
Imaging:
07/06/2024 X-ray left foot: Changes of prior amputation of the first digit and distal aspect of the first metatarsal. There is soft tissue swelling involving the left second toe. There is cortical irregularity and erosion within the proximal
interphalangeal joint and distal aspect of the second proximal phalanx.
Care Review
Plan reviewed with: Physician (Hospitalist)
[2024-07-08] MEDS: SANTYL OINTMENT TOPICAL (16:53)
[2024-07-08] MEDS: MAXIPIME 2000 MG IV (16:54)
[2024-07-08] MEDS: VITAMIN B1 100 MG TUBE (16:54)
[2024-07-08] MEDS: FOLVITE 50.2 MG IV (16:54)
[2024-07-08] MEDS: LOVENOX 40 MG SC (16:54)
--- NOTE | 2024-07-08 19:03 | W.PN.UPDATE ---
Update Note
Progress Note Update
Scheduled patient for Left 2nd toe amputation, discussed with patient 's , explained all risks, complications not limiting to non healing, reinfection, more need for proximal amputations etc . Patients understands and agrees to proceed
with toe amputation
Scheduled for 07/09/2024 around 2 pm.
[2024-07-09] VITALS (9 sets, daily range): BP systolic 15–133; BP diastolic 68–83
[2024-07-09] MEDS: LIPITOR 40 MG TUBE ×2 (00:56→20:51)
[2024-07-09] MEDS: TYLENOL ORAL SOLUTION 650 MG TUBE (04:15)
[2024-07-09] MEDS: STERILE WATER FOR INJECTION 10 ML IV ×2 (04:16→18:39)
[2024-07-09] MEDS: MAXIPIME 2000 MG IV ×2 (04:17→18:40)
[2024-07-09] MEDS: SANTYL OINTMENT 1 APPLIC TOPICAL (04:30)
[2024-07-09] MEDS: DAKIN'S SOLUTION 0.125% 1/4 STRENGTH 473 ML TOPICAL (04:30)
--- NOTE | 2024-07-09 06:57 | W.PN.HOSP.TC ---
Addendum entered and electronically signed by Rylan Mauricio MD 07/09/24 16:25:
I saw and evaluated the patient. I reviewed the resident�s note and agree with findings and plan as documented in the resident�s note.
Patient was seen earlier today prior to surgery since then patient has received surgery. Late documentation
Patient was looking stable no new changes on exam
Echo reviewed no changes since 2021
Underwent second toe partial amputation
Postop care per podiatry
Monitor vital signs
Original Note:
Today's Communication/Plan
-
Echo today
Left second toe amputation today
Antibiotics narrowed
Follow blood culture
Assessment / Plan
Assessment / Plan
IMPRESSION: 58-year-old male with PMH of anoxic brain injury, nonverbal, functional quadriplegia who presented to ED on 07/06 for concerns of left second toe infection.
Assessment/plan:
#Left second toe ulcer with exposed bone-Suspicious for osteomyelitis
-Partial left second toe amputation toe amputation scheduled for today.
-Antibiotics narrowed to cefepime per ID.
-ID appreciated.
-Pt stands moderate risks for the proposed procedure.
-Wound care.
-Podiatry following.
#Superficial stable ulcerations of right lateral fifth and great toes.
-No drainage no erythema.
-Continue wound care.
#MRSA colonized.
-Contact precautions.
-Off vancomycin.
#Abnormal EKG
-Routine echo ordered
#Sepsis-history of ESBL E. coli UTI.
-Suspect source include multiple stage IV pressure injuries in the sacrum and right hip.
-Blood culture and NGTD, urine culture positive for Pseudomonas.
-Continue cefepime.
-Follow fever curve.
#Multiple stage IV pressure injuries (POA)
-Multiple pressure injuries noted on sacrum, right hip, right lema, right elbow.
-Wound care.
-Continue antibiotics and follow temperature curve.
#Chronic iron deficiency anemia�anemia of chronic disease
-Hb stable at 9.3 (baseline). No evidence of active bleeding.
-Continue iron supplementation.
-Follow CBC.
#Paroxysmal A-fib
-Rate controlled on metoprolol. Patient also on amiodarone.
-Not on anticoagulation NURSE OFFICE.
#History of anoxic brain injury�from multiple strokes.
-Quadriplegic s/p trach and GJ tube.
#Suspected severe protein malnutrition with hypoalbuminemia
-Tube feeds.
-Dietary consult.
#History of seizures
-Continue valproic acid and Keppra.
DVT PPx: Lovenox
CODE STATUS-DNR After discussing with Pts .
Anticipated Discharge: > 48 hours
Subjective/Interval History
-
Date of Service: July 09, 2024
I have seen and examined the patient. Patient remains nonverbal. His BP is 124/83, pulse 95, respiratory 24, saturating at 94% on 5 L oxygen via tracheostomy mask.
Objective Data
-
Labs:
Laboratory Results
07/09/24
06:00
WBC Pending
Hgb Pending
Hct Pending
Plt Count Pending
Sodium Pending
Potassium Pending
Chloride Pending
Carbon Dioxide Pending
BUN Pending
Creatinine Pending
Glucose Pending
Calcium Pending
Vital Signs:
Vital Signs
Temp Pulse Resp BP Pulse Ox
97.6 F 81 16 121/79 97
07/09/24 03:36 07/09/24 03:36 07/09/24 03:36 07/09/24 03:36 07/09/24 03:36
I&O
07/07/24 07/08/24 07/09/24
06:59 06:59 06:59
Intake Total 560 / 560 840 / 840 1220 / 1220
Output Total 250 / 250 1150 / 1150 1450 / 1450
Balance 310 / 310 -310 / -310 -230 / -230
Review of Systems
-
Unable to obtain full review of systems at this time due to: Patient Non-verbal
Physical Exam
-
General: No Apparent Distress, Comfortable, Appears Chronically Ill, Cachectic and Other (contracted)
HEENT: Normocephalic, Atraumatic and Moist Mucous Membranes
Respiratory: Rhonchi, Non Labored Respirations and Other (trach collar); Negative Wheezes or Rales
Cardiac: Regular Rhythm and S1/S2; Negative Murmur, Rub or Gallop
GI: Soft, Nondistended and Normal Bowel Sounds
Musculoskeletal: No Cyanosis, No Edema and Other (Chronic contractures)
Skin: Warm, Dry and Ulcers (B/L Iliac, sacral, posterior hip, R lema, R lateral elbow ); Negative Rash
Neuro: Awake
Psych: Calm
Data Reviewed
-
Diagnostic Radiology: Image personally visualized and interpreted, Report Reviewed by me, Discussed with Physician and Discussed with Family
Labs: Labs Reviewed by me, Discussed with Physician and Discussed with Family
Old Records: Reviewed
[2024-07-09 09:23] LABS: Hematocrit 29.2 % (39.0-52.0); Hemoglobin 8.8 g/dL (13.0-18.0); Mean Corp Hgb Conc. 30.1 g/dL (33.0-37.0); Mean Corpuscular Hgb 31.9 pg (27.0-31.0); Mean Corpuscular Volume 105.8 fL (80.0-94.0); Mean Platelet Volume 9.3 fL (7.4-10.4); Platelet Count 252 10^3/uL (130-400); Red Blood Cell Count 2.76 10^6/uL (4.70-6.10); Red Cell Dist. Width 16.4 % (11.5-14.5); White Blood Cell Count 8.3 10^3/uL (4.8-10.8)
[2024-07-09 09:48] LABS: Blood Urea Nitrogen 26 mg/dl (9-20); Calcium 9.6 mg/dl (8.4-10.2); Carbon Dioxide 26 mmol/L (22-30); Chloride 111 mmol/L (98-107); Estimated Creatinine Clearance 54 ml/min; Glucose 87 mg/dl (70-99); Potassium 4.2 mmol/L (3.5-5.1); Sodium 143 mmol/L (135-145); eGFR > 60.00
[2024-07-09] MEDS: KEPPRA 750 MG TUBE ×2 (09:57→20:50)
[2024-07-09] MEDS: DEPAKENE 125 MG TUBE ×2 (09:59→20:49)
[2024-07-09] MEDS: VITAMIN B1 100 MG TUBE (10:01)
[2024-07-09] MEDS: LOPRESSOR 25 MG TUBE ×2 (10:01→20:51)
[2024-07-09] MEDS: VITAMIN C 500 MG TUBE (10:01)
[2024-07-09] MEDS: FERROUS SULFATE ORAL LIQUID 300 MG TUBE ×2 (10:01→20:49)
[2024-07-09] MEDS: PACERONE 200 MG TUBE (10:02)
[2024-07-09] MEDS: NSS 1000 IV ×2 (10:04→20:48)
--- NOTE | 2024-07-09 10:38 | CM ---
CM reviewed chart, patient for toe amputation today. Patient current with Andie BENJAMIN, will update on patient discharge status. Patient on IV antibiotics. CM will continue to follow for all discharge planning needs.
Plan; home with , caregiver, Andie BENJAMIN, watch for home IV antibiotic needs.
--- NOTE | 2024-07-09 14:13 | W.SUR.POST ---
Surgical Immediate Post Op
Note
Pre Op Diagnosis: left 2nd toe osteomyelitis
Post Op Diagnosis: Same as above
Procedure Performed: Left 2nd partial toe amputation.
Primary Surgeon: Dr. Silvina DAVILA
Secondary Surgeons: None
Anesthesia: MAC with local block
Estimated Blood Loss: 5 cc's
Fluids: None
Drains/Shunts: No
Specimens/Cultures: LT 2nd toe with bone from proximal phalanx
Doppler/Duplex/Angio (Y/N): No
Complications: None
Operative Findings: clean surgical flaps, brittle bone
[2024-07-09] MEDS: FOLVITE 50.2 MG IV (18:46)
[2024-07-09] MEDS: LOVENOX 40 MG SC (18:54)
--- NOTE | 2024-07-09 20:24 | PTCARENOTE ---
TT to Dr. Del Castillo to order restart T/F, order placed.
[2024-07-10] VITALS (7 sets, daily range): BP systolic 121–163; BP diastolic 74–94
[2024-07-10] MEDS: MAXIPIME 2000 MG IV ×2 (03:06→17:17)
[2024-07-10] MEDS: STERILE WATER FOR INJECTION 10 ML IV ×2 (03:06→17:17)
--- NOTE | 2024-07-10 07:08 | W.PN.HOSP.TC ---
Addendum entered and electronically signed by Rylan Mauricio MD 07/10/24 15:11:
Skin with multiple ulcers-pressure injury right hip, sacrum, small ulcerations on the toes, ulcer on the second toe on the left. No crepitus noted
Abdomen soft and nontender. GJ tube
No edema
awake
Contractures Upper and LE
# Ulcer on the left second toe dorsal aspect
X-ray with osteomyelitis
Status post partial amputation of left second toe by 07/09/24.
Antibiotics changed to cefepime by infectious disease
He has good pulses dorsalis pedis I think the ulcers are secondary to his contracture and pressure from rubbing .
# Abnormal EKG-routine echo no changes
# Multiple pressure injury present on admission right hip, left iliac area, right iliac, right lateral elbow, right medial lower leg, right lateral foot, stage IV sacral pressure injury -wound care evaluation appreciated. Turn patient every 2
hours. Local wound care
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 Patient is unvaccinated
# Paroxysmal atrial fibrillation-continue amiodarone, metoprolol. Not on anticoagulation as OP
# Seizures-continue valproic acid and Keppra
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
# Hyperlipidemia-continue atorvastatin
# History of ESBL UTI
# Chronic dysphagia-has a GJ tube. Dietary evaluation for tube feeds
# Chronic anemia-iron studies from earlier this month noted
# Bifascicular block on EKG-chronic, ECHO with no changes
# Hypoalbuminemia
# DVT prophylaxis-Lovenox
# DNR status per discussion with patient's
Discussed with ID
Discussed with and updated yesterday
Await Podiatry/ID rec for DC
Part of this note was created using voice recognition system. Occasional wrong word or��sound alike� substitutions may have inadvertently occurred due to the inherent limitations of voice recognition software. If noted kindly bring it to my
attention for correction.
Original Note:
Today's Communication/Plan
-
Resume tube feeds
Monitor CBC
Follow surgical pathology reports
Continue antibiotics
Discharge planning
Assessment / Plan
Assessment / Plan
IMPRESSION: 58-year-old male with PMH of anoxic brain injury, nonverbal, functional quadriplegia who presented to ED on 07/06 for concerns of left second toe infection.
Assessment/plan:
#Left second toe ulcer with exposed bone-Suspicious for osteomyelitis
-POD #1, s/p left second toe partial amputation with primary closure.
-Continue cefepime per ID.
-Awaiting surgical pathology reports.
-ID appreciated.
-Resume tube feed.
-Wound care.
-Monitor CBC.
#Superficial stable ulcerations of right lateral fifth and great toes.
-No drainage no erythema.
-Continue wound care.
#MRSA colonized.
-Contact precautions.
-Off vancomycin.
#Abnormal EKG
-Echo reviewed and unchanged from 2021.
#Sepsis-history of ESBL E. coli UTI.
-Suspect source include multiple stage IV pressure injuries in the sacrum and right hip.
-Blood culture and NGTD, urine culture positive for Pseudomonas.
-Continue cefepime.
-Follow fever curve.
#Multiple stage IV pressure injuries (POA)
-Multiple pressure injuries noted on sacrum, right hip, right lema, right elbow.
-Wound care.
-Continue antibiotics and follow temperature curve.
#Chronic iron deficiency anemia�anemia of chronic disease
-Hb stable at 9.3 (baseline). No evidence of active bleeding.
-Continue iron supplementation.
-Follow CBC.
#Paroxysmal A-fib
-Rate controlled on metoprolol. Patient also on amiodarone.
-Not on anticoagulation [employer].
#History of anoxic brain injury�from multiple strokes.
-Quadriplegic s/p trach and GJ tube.
#Suspected severe protein malnutrition with hypoalbuminemia
-Tube feeds.
-Titrate team appreciated
#History of seizures
-Continue valproic acid and Keppra.
DVT PPx: Lovenox
CODE STATUS-DNR After discussing with Pts .
Anticipated Discharge: Within 24 hours
Subjective/Interval History
-
Date of Service: July 10, 2024
Patient seen and examined. Remains nonverbal. Multiple wounds rechecked, no evidence of healing. He is contracted position puts pressure on his right hip wound which would further impair his healing.
Objective Data
-
Labs:
Laboratory Results
07/10/24
06:00
WBC Pending
Hgb Pending
Hct Pending
Plt Count Pending
Sodium Pending
Potassium Pending
Chloride Pending
Carbon Dioxide Pending
BUN Pending
Creatinine Pending
Glucose Pending
Calcium Pending
Total Bilirubin Pending
AST Pending
ALT Pending
Alkaline Phosphatase Pending
Vital Signs:
Vital Signs
Temp Pulse Resp BP Pulse Ox
99.5 F 96 18 132/79 93
07/10/24 03:10 07/10/24 03:10 07/10/24 03:10 07/10/24 03:10 07/10/24 03:10
I&O
07/09/24 07/10/24 07/11/24
06:59 06:59 06:59
Intake Total 1220 / 1220 3740 / 3740
Output Total 1450 / 1450 750 / 750
Balance -230 / -230 2990 / 2990
Review of Systems
-
Unable to obtain full review of systems at this time due to: Patient Non-verbal
Physical Exam
-
General: No Apparent Distress, Comfortable, Appears Chronically Ill, Cachectic and Other (contracted)
HEENT: Normocephalic, Atraumatic and Moist Mucous Membranes
Respiratory: Rhonchi, Non Labored Respirations and Other (trach collar); Negative Wheezes or Rales
Cardiac: Regular Rhythm and S1/S2; Negative Murmur, Rub or Gallop
GI: Soft, Nondistended and Normal Bowel Sounds
Musculoskeletal: No Cyanosis, No Edema and Other (Chronic contractures)
Skin: Warm, Dry and Ulcers (B/L Iliac, sacral, posterior hip, R lema, R lateral elbow ); Negative Rash
Neuro: Awake
Psych: Calm
Data Reviewed
-
Diagnostic Radiology: Image personally visualized and interpreted, Report Reviewed by me, Discussed with Physician and Discussed with Family
Labs: Labs Reviewed by me, Discussed with Physician and Discussed with Family
Old Records: Reviewed
[2024-07-10 08:31] LABS: Hematocrit 30.5 % (39.0-52.0); Hemoglobin 9.3 g/dL (13.0-18.0); Mean Corp Hgb Conc. 30.5 g/dL (33.0-37.0); Mean Corpuscular Volume 104.8 fL (80.0-94.0); Mean Platelet Volume 9.3 fL (7.4-10.4); Platelet Count 269 10^3/uL (130-400); Red Blood Cell Count 2.91 10^6/uL (4.70-6.10); Red Cell Dist. Width 16.4 % (11.5-14.5); White Blood Cell Count 8.9 10^3/uL (4.8-10.8)
[2024-07-10 08:54] LABS: ALT (SGPT) 27 U/L (0-50); AST (SGOT) 20 U/L (17-59); Albumin 2.6 g/dl (3.5-5.0); Alkaline Phosphatase 117 U/L (38-126); Blood Urea Nitrogen 25 mg/dl (9-20); Calcium 9.5 mg/dl (8.4-10.2); Carbon Dioxide 27 mmol/L (22-30); Chloride 113 mmol/L (98-107); Estimated Creatinine Clearance 54 ml/min; Glucose 130 mg/dl (70-99); Potassium 4.4 mmol/L (3.5-5.1); Sodium 146 mmol/L (135-145); Total Bilirubin 0.2 mg/dl (0.2-1.3); Total Protein 5.8 g/dl (6.3-8.2); eGFR > 60.00
[2024-07-10] MEDS: FERROUS SULFATE ORAL LIQUID 300 MG TUBE ×2 (10:42→21:42)
[2024-07-10] MEDS: DEPAKENE 125 MG TUBE ×2 (10:42→21:42)
[2024-07-10] MEDS: KEPPRA 750 MG TUBE ×2 (10:43→21:43)
[2024-07-10] MEDS: LOPRESSOR 25 MG TUBE ×2 (10:45→21:47)
[2024-07-10] MEDS: TYLENOL ORAL SOLUTION 650 MG TUBE (10:45)
[2024-07-10] MEDS: PACERONE 200 MG TUBE (10:45)
[2024-07-10] MEDS: VITAMIN B1 100 MG TUBE (10:45)
[2024-07-10] MEDS: VITAMIN C 500 MG TUBE (10:45)
[2024-07-10] MEDS: SANTYL OINTMENT 1 APPLIC TOPICAL (12:30)
[2024-07-10] MEDS: DAKIN'S SOLUTION 0.125% 1/4 STRENGTH 473 ML TOPICAL (12:31)
--- NOTE | 2024-07-10 15:44 | W.PN.ID1 ---
Date of Service
Date of Service: July 10, 2024
Today's Communication
Continue with cefepime.
Assessment / Plan
Suspected osteomyelitis of left second toe
- s/p amputation
Multiple decubiti wounds
Seizure disorder
A-fib
TBI
Functional quadriplegia
Recommendations:
Wound cultures only with Pseudomonas.
Patient status post amputation.
Pathology pending.
Given the lack of oral options (fluoroquinolones are precluded secondary to amiodarone), would suggest maintaining on cefepime while pathology is pending.
If proximal margin found to be negative, no further antibiotics are required.
If proximal margin is found to be positive for osteomyelitis, would suggest curative surgery rather than a prolonged course of IV antibiotics.
����������������������������������������������������������
Chief Complaint
-: Other (Left second toe osteomyelitis)
Subjective / Review of Systems
Review of Systems: No Fever
Vital Signs / Physical Exam
Vital Signs
Vital Signs
Temp Pulse Resp BP Pulse Ox
98.6 F 72 18 138/74 96
07/10/24 11:00 07/10/24 11:00 07/10/24 11:00 07/10/24 11:00 07/10/24 11:00
Physical Exam
Constitutional: Chronically Ill, Non-toxic and Cachetic
Eyes: Sclera Anicteric
Cardiovascular: S1/S2; Negative S3/S4
Pulmonary: Non Labored
Wound: Other (Left foot dressed. Mild bloody strikethrough)
Neurological: Other (Nonverbal)
Psychological: Calm
Objective Data
Lab Data
Lab Results
07/10/24 08:17
07/10/24 08:17
Estimated Creat Clear 54 ml/min 07/10/24 08:17
Lactic Acid 1.3 mmol/L (0.7-2.0) 07/06/24 13:40
Total Bilirubin 0.2 mg/dl (0.2-1.3) 07/10/24 08:17
AST 20 U/L (17-59) 07/10/24 08:17
ALT 27 U/L (0-50) 07/10/24 08:17
Alkaline Phosphatase 117 U/L (38-126) 07/10/24 08:17
Most recent labs reviewed.
Micro Results:
07/09/24 14:15 Wound Culture - Preliminary
Toe Gram Stain - Preliminary
07/09/24 14:15 Anaerobic Culture - Preliminary
Toe Culture pending. Anaerobic cultures are examined after 3
days incubation. Additional information to follow.
07/06/24 15:52 Blood Culture - Preliminary
Blood/Venous No Growth in 72 hours- Final report to follow
07/06/24 15:52 Blood Culture - Preliminary
Blood/Venous No Growth in 72 hours- Final report to follow
07/07/24 06:28 Urine Culture - Final
Urine Pseudomonas aeruginosa
07/07/24 03:53 MRSA Screen - Final
Nose Staph aureus MRSA
07/06/24 15:53 Wound Culture - Final
Toe Pseudomonas aeruginosa
Gram Stain - Final
Imaging:
07/06/2024 X-ray left foot: Changes of prior amputation of the first digit and distal aspect of the first metatarsal. There is soft tissue swelling involving the left second toe. There is cortical irregularity and erosion within the proximal
interphalangeal joint and distal aspect of the second proximal phalanx.
Care Review
Plan reviewed with: Physician (Resident)
--- NOTE | 2024-07-10 16:09 | CM ---
CM reviewed chart, reviewed with Resident, for discharge likely tomorrow, patient remains on IV antibiotics. Updates to Leah at [facility], faxed to [facility] with update. Patient will require ambulance transport, forms on chart. CM will continue
to follow for all discharge planning needs.
Plan; home with , 25/02 caregivers, [facility], continue tube feeds through [facility]
[2024-07-10] MEDS: FOLVITE 50.2 MG IV (17:17)
[2024-07-10] MEDS: LOVENOX 40 MG SC (17:17)
--- NOTE | 2024-07-10 18:05 | W.PN.POD ---
Today's Communication
Today's Communication
Patient stable per podiatry to D/C home
Assessment / Plan
-
S/P : Left 2nd toe partial amputation POD #1
Stable Rt foot ulcerations
Patient history of CVA with tracheostomy
severely contracted limbs
Plan : Changed surgical dressings to LT foot, applied adaptic, dry gauze and kerlix to LT 2nd toe
VN for every other day dressing changes with the above
PEnding pathology
Abx per ID
Will D/W to cont to monitor the toe
Subjective
Chief Complaint
Lt 2nd toe osteomyelitis.
Subjective
PT seen at bedside S/p LT 2nd toe partial amputation, intact surgical dressings, no strike through bleeding noted.
Objective
Temp Pulse Resp BP Pulse Ox
97.6 F 82 18 121/79 96
07/10/24 15:00 07/10/24 15:00 07/10/24 15:00 07/10/24 15:00 07/10/24 15:00
07/10/24 08:17
07/10/24 08:17
Vital Signs and Lab results were reviewed.
LT foot Intact vascular status
Left 2nd toe amputation site is clean, dry, intact sutures, no erythema, no drainage. No SOI
--- NOTE | 2024-07-10 20:26 | PTCARENOTE ---
All dressings changed during day shift today, pt tolerated without nonverbal expression of pain.
[2024-07-10] MEDS: LIPITOR 40 MG TUBE (21:47)
[2024-07-11 02:52] VITALS: BP 152/91
[2024-07-11] MEDS: MAXIPIME 2000 MG IV (04:13)
[2024-07-11] MEDS: STERILE WATER FOR INJECTION 10 ML IV (04:14)
[2024-07-11 06:58] LABS: Hematocrit 32.4 % (39.0-52.0); Hemoglobin 9.7 g/dL (13.0-18.0); Mean Corp Hgb Conc. 29.9 g/dL (33.0-37.0); Mean Corpuscular Hgb 31.5 pg (27.0-31.0); Mean Corpuscular Volume 105.2 fL (80.0-94.0); Mean Platelet Volume 9.6 fL (7.4-10.4); Platelet Count 254 10^3/uL (130-400); Red Blood Cell Count 3.08 10^6/uL (4.70-6.10); Red Cell Dist. Width 16.5 % (11.5-14.5); White Blood Cell Count 11.5 10^3/uL (4.8-10.8)
[2024-07-11 07:36] LABS: Blood Urea Nitrogen 25 mg/dl (9-20); Calcium 9.7 mg/dl (8.4-10.2); Carbon Dioxide 25 mmol/L (22-30); Chloride 113 mmol/L (98-107); Estimated Creatinine Clearance 59 ml/min; Glucose 121 mg/dl (70-99); Potassium 4.4 mmol/L (3.5-5.1); Sodium 146 mmol/L (135-145); eGFR > 60.00
[2024-07-11 08:14] VITALS: BP 147/81
--- NOTE | 2024-07-11 10:32 | W.PN.HOSP.TC ---
Addendum entered and electronically signed by Rylan Mauricio MD 07/11/24 14:54:
Skin with multiple ulcers-pressure injury right hip, sacrum, small ulcerations on the toes, ulcer on the second toe on the left. No crepitus noted
Abdomen soft and nontender. GJ tube
No edema
awake
Contractures Upper and LE
# Ulcer on the left second toe dorsal aspect
X-ray with osteomyelitis
Status post partial amputation of left second toe by 07/09/24.
Antibiotics changed to Zosyn by infectious disease to cover Enterococcus and also Pseudomonas
He has good pulses dorsalis pedis I think the ulcers are secondary to his contracture and pressure from rubbing .
Awaiting pathology
# Abnormal EKG-routine echo no changes
# Multiple pressure injury present on admission right hip, left iliac area, right iliac, right lateral elbow, right medial lower leg, right lateral foot, stage IV sacral pressure injury -wound care evaluation appreciated. Turn patient every 2
hours. Local wound care
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 Patient is unvaccinated
# Paroxysmal atrial fibrillation-continue amiodarone, metoprolol. Not on anticoagulation as OP
# Seizures-continue valproic acid and Keppra
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
# Hyperlipidemia-continue atorvastatin
# History of ESBL UTI
# Chronic dysphagia-has a GJ tube. Tube feeds
# Chronic anemia-iron studies from earlier this month noted
# Bifascicular block on EKG-chronic, ECHO with no changes
# Hypoalbuminemia
# DVT prophylaxis-Lovenox
# DNR status per discussion with patient's
Discussed with ID
Discussed with and updated
Part of this note was created using voice recognition system. Occasional wrong word or��sound alike� substitutions may have inadvertently occurred due to the inherent limitations of voice recognition software. If noted kindly bring it to my
attention for correction.
Original Note:
Today's Communication/Plan
-
Increase TF flushes to 35
Monitor BMP
Switch Abx to zosyn
Follow bone pathology
Assessment / Plan
Assessment / Plan
IMPRESSION: 58-year-old male with PMH of anoxic brain injury, nonverbal, functional quadriplegia who presented to ED on 07/06 for concerns of left second toe infection.
Assessment/plan:
#Left second toe ulcer with exposed bone-Suspicious for osteomyelitis
-POD #2, s/p left second toe partial amputation with primary closure.
-Toe culture growing enterococcus.
-Will switch Abx to Zosyn per ID.
-Wait for sensitivity.
-Awaiting surgical pathology reports.
-ID appreciated.
-Continue tube feeds.
-Continue wound care.
-Monitor CBC.
#Acute hypernatremia
-Most likely hypovolemic hyponatremia
-Increase TF flushes to 35.
-Monitor BMP.
#Superficial stable ulcerations of right lateral fifth and great toes.
-No drainage no erythema.
-Continue wound care.
#MRSA colonized.
-Contact precautions.
-Off vancomycin.
#Abnormal EKG
-Echo reviewed and unchanged from 2021.
#Sepsis-history of ESBL E. coli UTI.
-Suspect source include multiple stage IV pressure injuries in the sacrum and right hip.
-Blood culture and NGTD, urine culture positive for Pseudomonas.
-Continue cefepime.
-Follow fever curve.
#Multiple stage IV pressure injuries (POA)
-Multiple pressure injuries noted on sacrum, right hip, right lema, right elbow.
-Wound care.
-Continue antibiotics and follow temperature curve.
#Chronic iron deficiency anemia�anemia of chronic disease
-Hb stable at 9.3 (baseline). No evidence of active bleeding.
-Continue iron supplementation.
-Follow CBC.
#Paroxysmal A-fib
-Rate controlled on metoprolol. Patient also on amiodarone.
-Not on anticoagulation [employer].
#History of anoxic brain injury�from multiple strokes.
-Quadriplegic s/p trach and GJ tube.
#Suspected severe protein malnutrition with hypoalbuminemia
-Tube feeds.
-Titrate team appreciated
#History of seizures
-Continue valproic acid and Keppra.
DVT PPx: Lovenox
CODE STATUS-DNR After discussing with Pts .
Anticipated Discharge: > 48 hours
Subjective/Interval History
-
Date of Service: July 11, 2024
Patient seen and examined. Remains nonverbal.
Objective Data
-
Labs:
Laboratory Results
07/11/24
06:21
WBC 11.5 H
Hgb 9.7 L
Hct 32.4 L
Plt Count 254
Sodium 146 H
Potassium 4.4
Chloride 113 H
Carbon Dioxide 25
BUN 25 H
Creatinine 1.0
Glucose 121 H
Calcium 9.7
Vital Signs:
Vital Signs
Temp Pulse Resp BP Pulse Ox
98.0 F 108 17 147/81 96
07/11/24 08:14 07/11/24 08:14 07/11/24 08:14 07/11/24 08:14 07/11/24 08:14
I&O
07/10/24 07/11/24 07/12/24
06:59 06:59 06:59
Intake Total 3740 / 3740 780 / 780
Output Total 750 / 750 600 / 600
Balance 2990 / 2990 180 / 180
Review of Systems
-
Unable to obtain full review of systems at this time due to: Patient Non-verbal
Physical Exam
-
General: No Apparent Distress, Comfortable, Appears Chronically Ill, Cachectic and Other (contracted)
HEENT: Normocephalic, Atraumatic and Moist Mucous Membranes
Respiratory: Rhonchi, Non Labored Respirations and Other (trach collar); Negative Wheezes or Rales
Cardiac: Regular Rhythm and S1/S2; Negative Murmur, Rub or Gallop
GI: Soft, Nondistended and Normal Bowel Sounds
Musculoskeletal: No Cyanosis, No Edema and Other (Chronic contractures)
Skin: Warm, Dry and Ulcers (B/L Iliac, sacral, posterior hip, R lema, R lateral elbow ); Negative Rash
Neuro: Awake
Psych: Calm
Data Reviewed
-
Diagnostic Radiology: Image personally visualized and interpreted, Report Reviewed by me, Discussed with Physician and Discussed with Family
Labs: Labs Reviewed by me, Discussed with Physician and Discussed with Family
Old Records: Reviewed
[2024-07-11] MEDS: VITAMIN B1 100 MG TUBE (10:46)
[2024-07-11] MEDS: SANTYL OINTMENT 1 APPLIC TOPICAL (10:46)
[2024-07-11] MEDS: FERROUS SULFATE ORAL LIQUID 300 MG TUBE ×2 (10:46→21:48)
[2024-07-11] MEDS: LOPRESSOR 25 MG TUBE ×2 (10:46→21:49)
[2024-07-11] MEDS: PACERONE 200 MG TUBE (10:46)
[2024-07-11] MEDS: VITAMIN C 500 MG TUBE (10:47)
[2024-07-11] MEDS: KEPPRA 750 MG TUBE ×2 (10:47→21:48)
[2024-07-11] MEDS: DEPAKENE 125 MG TUBE ×2 (10:47→21:47)
[2024-07-11] MEDS: DAKIN'S SOLUTION 0.125% 1/4 STRENGTH 473 ML TOPICAL (10:50)
--- NOTE | 2024-07-11 12:04 | W.PN.ID1 ---
Date of Service
Date of Service: July 11, 2024
Today's Communication
Transition to Zosyn.
Assessment / Plan
Suspected osteomyelitis of left second toe
- s/p amputation
Multiple decubiti wounds
Seizure disorder
A-fib
TBI
Functional quadriplegia
Recommendations:
Patient status post amputation.
Wound cultures only with Pseudomonas. Bone culture with Enterococcus species.
Pathology pending.
Transition to Zosyn pending further culture data.
If proximal margin found to be negative, no further antibiotics are required.
If proximal margin is found to be positive for osteomyelitis, would suggest curative surgery rather than a prolonged course of IV antibiotics.
����������������������������������������������������������
Chief Complaint
-: Other (Left second toe osteomyelitis)
Subjective / Review of Systems
Review of Systems: No Fever
Vital Signs / Physical Exam
Vital Signs
Vital Signs
Temp Pulse Resp BP Pulse Ox
98.0 F 108 17 147/81 96
07/11/24 08:14 07/11/24 08:14 07/11/24 08:14 07/11/24 08:14 07/11/24 08:14
Physical Exam
Constitutional: Chronically Ill, Non-toxic and Cachetic
Eyes: Sclera Anicteric
Cardiovascular: S1/S2; Negative S3/S4
Pulmonary: Non Labored
Musculoskeletal: Other (Severely contracted.)
Wound: Other (Left foot dressed. )
Neurological: Other (Nonverbal)
Psychological: Calm
Objective Data
Lab Data
Lab Results
07/11/24 06:21
07/11/24 06:21
Estimated Creat Clear 59 ml/min 07/11/24 06:21
Lactic Acid 1.3 mmol/L (0.7-2.0) 07/06/24 13:40
Total Bilirubin 0.2 mg/dl (0.2-1.3) 07/10/24 08:17
AST 20 U/L (17-59) 07/10/24 08:17
ALT 27 U/L (0-50) 07/10/24 08:17
Alkaline Phosphatase 117 U/L (38-126) 07/10/24 08:17
Most recent labs reviewed.
Micro Results:
07/09/24 14:15 Anaerobic Culture - Preliminary
Toe Culture pending. Anaerobic cultures are examined after 3
days incubation. Additional information to follow.
07/09/24 14:15 Wound Culture - Preliminary
Toe Enterococcus species
Diptheroids
Gram Stain - Preliminary
07/06/24 15:52 Blood Culture - Preliminary
Blood/Venous No Growth in 4 days- Final report to follow
07/06/24 15:52 Blood Culture - Preliminary
Blood/Venous No Growth in 4 days- Final report to follow
07/07/24 06:28 Urine Culture - Final
Urine Pseudomonas aeruginosa
07/07/24 03:53 MRSA Screen - Final
Nose Staph aureus MRSA
07/06/24 15:53 Wound Culture - Final
Toe Pseudomonas aeruginosa
Gram Stain - Final
Imaging:
07/06/2024 X-ray left foot: Changes of prior amputation of the first digit and distal aspect of the first metatarsal. There is soft tissue swelling involving the left second toe. There is cortical irregularity and erosion within the proximal
interphalangeal joint and distal aspect of the second proximal phalanx.
Care Review
Plan reviewed with: Physician (Hospitalist service)
[2024-07-11] MEDS: ZOSYN 50 IV ×2 (13:16→21:47)
[2024-07-11] MEDS: LOVENOX 40 MG SC (17:04)
[2024-07-11] MEDS: FOLVITE 50.2 MG IV (17:04)
[2024-07-11 17:14] VITALS: BP 152/85
[2024-07-11] MEDS: LIPITOR 40 MG TUBE (21:48)
[2024-07-11 23:30] VITALS: BP 127/74
[2024-07-12] MEDS: ZOSYN 50 IV ×4 (02:45→20:43)
--- NOTE | 2024-07-12 07:11 | W.PN.HOSP.TC ---
Addendum entered and electronically signed by Keshav Delatorre MD 07/13/24 16:18:
Seen and examined by me independently in collaboration with the medical doctor md/medical director.
Lab data and imaging data reviewed.
Addendum as below :
Afebrile and hemodynamically stable. Oxygenating well on room air. Tolerating his tube feeds.
Await bone pathology for further narrowing of antibiotics.
DC home when okay from ID standpoint.
Addendum entered and electronically signed by Rylan Mauricio MD 07/12/24 13:15:
I saw and evaluated the patient. I reviewed the resident�s note and agree with findings and plan as documented in the resident�s note.
Responsive
Wounds have not changed
No discharge from surgical site
Continue IV antibiotics
Bone pathology pending
D/W ID
Original Note:
Today's Communication/Plan
-
Continue antibiotics
Awaiting pathology reports
Follow toe culture sensitivity
Wound care
Monitor and replete electrolytes
Contact precautions
Folate supplementation
Assessment / Plan
Assessment / Plan
IMPRESSION: 58-year-old male with PMH of anoxic brain injury, nonverbal, functional quadriplegia who presented to ED on 07/06 for concerns of left second toe infection.
Assessment/plan:
#Left second toe ulcer with exposed bone-Suspicious for osteomyelitis
-POD #3, s/p left second toe partial amputation with primary closure.
-Toe culture growing presumptive enterococcus with rare diphtheroids.
-Continue Zosyn.
-Wait for sensitivity.
-Awaiting surgical pathology reports.
-ID appreciated.
-Continue tube feeds.
-Continue wound care.
-Monitor CBC.
# Mild leukocytosis
-Inflammatory process.
-Monitor while on antibiotics.
#Chronic macrocytic anemia
-Hb stable at 9.5.
-Suspect anemia of chronic disease with superimposed folate deficiency.
-Continue folic acid supplementation.
-Follow CBC.
#Acute hypernatremia
-Resolved.
-Most likely hypovolemic hyponatremia with a bump in creatinine
-Continue flushes at 35 mL/h.
-Monitor BMP.
#Superficial stable ulcerations of right lateral fifth and great toes.
-No drainage no erythema.
-Continue wound care.
#MRSA colonized.
-Contact precautions.
-Off vancomycin.
#Abnormal EKG
-Echo reviewed and unchanged from 2021.
#Sepsis-history of ESBL E. coli UTI.
-Suspect source include multiple stage IV pressure injuries in the sacrum and right hip.
-Blood culture and NGTD, urine culture positive for Pseudomonas sensitive to Zosyn.
-Contact precautions.
-Continue Zosyn as above.
-Follow fever curve.
#Multiple stage IV pressure injuries (POA)
-Multiple pressure injuries noted on sacrum, right hip, right lema, right elbow.
-Wound care.
-Continue antibiotics and follow temperature curve.
#Chronic iron deficiency anemia�anemia of chronic disease
-Hb stable at 9.3 (baseline). No evidence of active bleeding.
-Continue iron supplementation.
-Follow CBC.
#Paroxysmal A-fib
-Rate controlled on metoprolol. Patient also on amiodarone.
-Not on anticoagulation [employer].
#History of anoxic brain injury�from multiple strokes.
-Quadriplegic s/p trach and GJ tube.
#Suspected severe protein malnutrition with hypoalbuminemia
-Tube feeds.
-Titrate team appreciated
#History of seizures
-Continue valproic acid and Keppra.
DVT PPx: Lovenox
CODE STATUS-DNR After discussing with Pts .
Anticipated Discharge: > 48 hours
Subjective/Interval History
-
Date of Service: July 12, 2024
Patient was seen and examined. Patient is nonverbal. Patient was receiving tube feeds with flushes at 25 mL/h. Patient looks comfortable.
Objective Data
-
Labs:
Laboratory Results
07/12/24
07:09
WBC Pending
Hgb Pending
Hct Pending
Plt Count Pending
Sodium Pending
Potassium Pending
Chloride Pending
Carbon Dioxide Pending
BUN Pending
Creatinine Pending
Glucose Pending
Calcium Pending
Vital Signs:
Vital Signs
Temp Pulse Resp BP Pulse Ox
97.9 F 87 16 127/74 95
07/11/24 23:30 07/11/24 23:30 07/11/24 23:30 07/11/24 23:30 07/11/24 23:30
I&O
07/11/24 07/12/24 07/13/24
06:59 06:59 06:59
Intake Total 780 / 780 1240 / 1240
Output Total 600 / 600 600 / 600
Balance 180 / 180 640 / 640
Review of Systems
-
Unable to obtain full review of systems at this time due to: Patient Non-verbal
Physical Exam
-
General: No Apparent Distress, Comfortable, Appears Chronically Ill, Cachectic and Other (contracted)
HEENT: Normocephalic, Atraumatic and Moist Mucous Membranes
Respiratory: Rhonchi, Non Labored Respirations and Other (trach collar); Negative Wheezes or Rales
Cardiac: Regular Rhythm and S1/S2; Negative Murmur, Rub or Gallop
GI: Soft, Nondistended and Normal Bowel Sounds
Musculoskeletal: No Cyanosis, No Edema and Other (Chronic contractures)
Skin: Warm, Dry and Ulcers (B/L Iliac, sacral, posterior hip, R lema, R lateral elbow ); Negative Rash
Neuro: Awake
Psych: Calm
Data Reviewed
-
Diagnostic Radiology: Image personally visualized and interpreted, Report Reviewed by me, Discussed with Physician and Discussed with Family
Labs: Labs Reviewed by me, Discussed with Physician and Discussed with Family
Old Records: Reviewed
[2024-07-12 07:25] VITALS: BP 118/77
[2024-07-12 08:13] LABS: Hematocrit 31.1 % (39.0-52.0); Hemoglobin 9.5 g/dL (13.0-18.0); Mean Corp Hgb Conc. 30.5 g/dL (33.0-37.0); Mean Corpuscular Hgb 32.4 pg (27.0-31.0); Mean Corpuscular Volume 106.1 fL (80.0-94.0); Platelet Count 237 10^3/uL (130-400); Red Blood Cell Count 2.93 10^6/uL (4.70-6.10); Red Cell Dist. Width 16.7 % (11.5-14.5); White Blood Cell Count 11.5 10^3/uL (4.8-10.8)
[2024-07-12 08:27] LABS: Blood Urea Nitrogen 26 mg/dl (9-20); Calcium 9.6 mg/dl (8.4-10.2); Carbon Dioxide 25 mmol/L (22-30); Chloride 112 mmol/L (98-107); Estimated Creatinine Clearance 49 ml/min; Glucose 123 mg/dl (70-99); Potassium 4.4 mmol/L (3.5-5.1); Sodium 145 mmol/L (135-145); eGFR > 60.00
[2024-07-12] MEDS: KEPPRA 750 MG TUBE ×2 (09:44→20:40)
[2024-07-12] MEDS: VITAMIN B1 100 MG TUBE (09:44)
[2024-07-12] MEDS: VITAMIN C 500 MG TUBE (09:44)
[2024-07-12] MEDS: PACERONE 200 MG TUBE (09:45)
[2024-07-12] MEDS: SANTYL OINTMENT 1 APPLIC TOPICAL (09:45)
[2024-07-12] MEDS: LOPRESSOR 25 MG TUBE ×2 (09:45→20:40)
[2024-07-12] MEDS: DEPAKENE 125 MG TUBE ×2 (09:45→20:40)
[2024-07-12] MEDS: FERROUS SULFATE ORAL LIQUID 300 MG TUBE ×2 (09:45→20:43)
[2024-07-12] MEDS: DAKIN'S SOLUTION 0.125% 1/4 STRENGTH 473 ML TOPICAL (09:48)
[2024-07-12 10:00] LABS: Glycohemoglobin (HgbA1c) 5.1 % (4.0-5.6)
[2024-07-12 15:10] VITALS: BP 137/83
[2024-07-12] MEDS: LOVENOX 40 MG SC (17:07)
[2024-07-12] MEDS: FOLVITE 50.2 MG IV (17:09)
[2024-07-12] MEDS: LIPITOR 40 MG TUBE (20:40)
[2024-07-12 23:06] VITALS: BP 114/77
[2024-07-13] MEDS: ZOSYN 50 IV ×4 (01:13→21:00)
--- NOTE | 2024-07-13 07:20 | W.PN.HOSP.TC ---
Today's Communication/Plan
-
Continue antibiotics
Continue IV fluid
Tube feeding
Follow cultures/sensitivities
Assessment / Plan
Assessment / Plan
Interim history: Ruben is a 58-year-old male with PMH of anoxic brain injury, nonverbal, functional quadriplegia who presented to ED on 07/06 for concerns of left second toe infection. On presentation, x-ray was suspicious for osteomyelitis.
However, due to patient's contractures and inability to tolerate an MRI decision was made to proceed with partial left second toe amputation by podiatry. Patient's was in agreement. Patient's surgery was done on 07/09 and patient tolerated.
Patient is currently in the hospital waiting for pathology reports to ensure surgical cure before discharge to home. His antibiotics was narrowed to cefepime, however due to new Pseudomonas infection on urine culture and Enterococcus on 2 culture
patient was switched to Zosyn awaiting final sensitivities.

-----
Assessment/plan:
#Left second toe ulcer with exposed bone-Suspicious for osteomyelitis
-POD #4, s/p left second toe partial amputation with primary closure.
-Toe culture positive for VRE (susceptible to amp/gent) with rare diphtheroids.
-Continue Zosyn per ID.
-Wait for sensitivity.
-Awaiting surgical pathology reports.
-ID appreciated.
-Continue tube feeds.
-Continue wound care.
-Monitor CBC.
# Mild leukocytosis
-Likely inflammatory process.
-Monitor while on antibiotics.
#Chronic macrocytic anemia
-Hb stable at 10.1.
-Suspect anemia of chronic disease with superimposed folate deficiency.
-Continue folic acid supplementation.
-Follow CBC.
#Acute hypovolemic hypernatremia
-Continue flushes at 30 mL/h.
-Monitor BMP.
#Superficial stable ulcerations of right lateral fifth and great toes.
-No drainage no erythema.
-Continue wound care.
#MRSA colonized.
-Contact precautions.
-Off vancomycin.
#Abnormal EKG
-Echo reviewed and unchanged from 2021.
#Sepsis-history of ESBL E. coli UTI.
-Suspect source include multiple stage IV pressure injuries in the sacrum and right hip.
-Blood culture and NGTD, urine culture positive for Pseudomonas sensitive to Zosyn.
-Contact precautions.
-Continue Zosyn as above.
-Follow fever curve.
#Multiple stage IV pressure injuries (POA)
-Multiple pressure injuries noted on sacrum, right hip, right lema, right elbow.
-Wound care.
-Continue antibiotics and follow temperature curve.
#Chronic iron deficiency anemia�anemia of chronic disease
-Hb stable at 9.3 (baseline). No evidence of active bleeding.
-Continue iron supplementation.
-Follow CBC.
#Paroxysmal A-fib
-Rate controlled on metoprolol. Patient also on amiodarone.
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
#History of anoxic brain injury�from multiple strokes.
-Quadriplegic s/p trach and GJ tube.
#Suspected severe protein malnutrition with hypoalbuminemia
-Tube feeds.
-Titrate team appreciated
#History of seizures
-Continue valproic acid and Keppra.
DVT PPx: Lovenox
CODE STATUS-DNR After discussing with Pts .
Anticipated Discharge: > 48 hours
Subjective/Interval History
-
Date of Service: July 13, 2024
Patient nonverbal. Patient seen and examined.
Objective Data
-
Labs:
Laboratory Results
07/13/24
06:00
WBC Pending
Hgb Pending
Hct Pending
Plt Count Pending
Sodium Pending
Potassium Pending
Chloride Pending
Carbon Dioxide Pending
BUN Pending
Creatinine Pending
Glucose Pending
Calcium Pending
Vital Signs:
Vital Signs
Temp Pulse Resp BP Pulse Ox
97.8 F 92 16 114/77 97
07/12/24 23:06 07/12/24 23:06 07/12/24 23:06 07/12/24 23:06 07/12/24 23:06
I&O
07/12/24 07/13/24 07/14/24
06:59 06:59 06:59
Intake Total 1240 / 1240
Output Total 600 / 600 1200 / 1200
Balance 640 / 640 -1200 / -1200
Review of Systems
-
Unable to obtain full review of systems at this time due to: Patient Non-verbal
Physical Exam
-
General: No Apparent Distress, Comfortable, Appears Chronically Ill, Cachectic and Other (contracted)
HEENT: Normocephalic, Atraumatic and Moist Mucous Membranes
Respiratory: Rhonchi, Non Labored Respirations and Other (trach collar); Negative Wheezes or Rales
Cardiac: Regular Rhythm and S1/S2; Negative Murmur, Rub or Gallop
GI: Soft, Nondistended and Normal Bowel Sounds
Musculoskeletal: No Cyanosis, No Edema and Other (Chronic contractures)
Skin: Warm, Dry and Ulcers (B/L Iliac, sacral, posterior hip, R lema, R lateral elbow ); Negative Rash
Neuro: Awake
Psych: Calm
Data Reviewed
-
Diagnostic Radiology: Image personally visualized and interpreted, Report Reviewed by me, Discussed with Physician and Discussed with Family
Labs: Labs Reviewed by me, Discussed with Physician and Discussed with Family
Old Records: Reviewed
[2024-07-13 07:42] VITALS: BP 121/75
[2024-07-13 07:56] LABS: Hemoglobin 10.1 g/dL (13.0-18.0); Mean Corp Hgb Conc. 30.6 g/dL (33.0-37.0); Mean Corpuscular Hgb 32.6 pg (27.0-31.0); Mean Corpuscular Volume 106.5 fL (80.0-94.0); Mean Platelet Volume 9.8 fL (7.4-10.4); Platelet Count 253 10^3/uL (130-400); White Blood Cell Count 11.6 10^3/uL (4.8-10.8)
[2024-07-13 08:48] LABS: Blood Urea Nitrogen 27 mg/dl (9-20); Calcium 9.8 mg/dl (8.4-10.2); Carbon Dioxide 26 mmol/L (22-30); Chloride 111 mmol/L (98-107); Estimated Creatinine Clearance 45 ml/min; Glucose 108 mg/dl (70-99); Potassium 4.5 mmol/L (3.5-5.1); Sodium 146 mmol/L (135-145); eGFR > 60.00
[2024-07-13] MEDS: PACERONE 200 MG TUBE (10:52)
[2024-07-13] MEDS: VITAMIN B1 100 MG TUBE (10:52)
[2024-07-13] MEDS: LOPRESSOR 25 MG TUBE ×2 (10:52→21:17)
[2024-07-13] MEDS: KEPPRA 750 MG TUBE ×2 (10:53→21:17)
[2024-07-13] MEDS: FERROUS SULFATE ORAL LIQUID 300 MG TUBE ×2 (10:53→21:17)
[2024-07-13] MEDS: DEPAKENE 125 MG TUBE ×2 (10:53→21:17)
[2024-07-13] MEDS: DAKIN'S SOLUTION 0.125% 1/4 STRENGTH 473 ML TOPICAL (10:53)
[2024-07-13] MEDS: SANTYL OINTMENT 1 APPLIC TOPICAL (10:54)
[2024-07-13] MEDS: VITAMIN C 500 MG TUBE (10:55)
[2024-07-13] MEDS: D5W 1000 IV (10:57)
--- NOTE | 2024-07-13 11:51 | CM ---
Patient seen at bedside. Patient with no changes in plan, CM will send updated clinical information to [facility] and Andie BENJAMIN. CM will continue to follow for discharge planning needs.
Plan; home with , 25/02 caregivers, Andie BENJAMIN, continue tube feeds through [facility]
[2024-07-13 15:04] VITALS: BP 121/75
--- NOTE | 2024-07-13 16:24 | W.PN.ID1 ---
Date of Service
Date of Service: July 13, 2024
Today's Communication
Continue Zosyn
Assessment / Plan
Suspected osteomyelitis of left second toe
- s/p amputation
Multiple decubiti wounds
Seizure disorder
A-fib
TBI
Functional quadriplegia
Recommendations:
Patient status post amputation.
Wound cultures only with Pseudomonas. Bone culture with VRE susceptible to ampicillin
Pathology pending.
Continue with Zosyn pending further culture data.
If proximal margin found to be negative, no further antibiotics are required.
If proximal margin is found to be positive for osteomyelitis, would suggest curative surgery rather than a prolonged course of IV antibiotics.
����������������������������������������������������������
Chief Complaint
-: Other (Left second toe osteomyelitis)
Subjective / Review of Systems
Review of Systems: No Fever
Vital Signs / Physical Exam
Vital Signs
Vital Signs
Temp Pulse Resp BP Pulse Ox
98.3 F 110 20 121/75 94
07/13/24 15:04 07/13/24 15:04 07/13/24 15:04 07/13/24 15:04 07/13/24 15:04
Physical Exam
Constitutional: Chronically Ill, Non-toxic and Cachetic
Eyes: Sclera Anicteric
Cardiovascular: S1/S2; Negative S3/S4
Pulmonary: Non Labored
Musculoskeletal: Other (Severely contracted all extremities.)
Wound: Other (Left foot dressed. )
Neurological: Other (Nonverbal)
Psychological: Calm
Objective Data
Lab Data
Lab Results
07/13/24 07:35
07/13/24 07:35
Estimated Creat Clear 45 ml/min 07/13/24 07:35
Lactic Acid 1.3 mmol/L (0.7-2.0) 07/06/24 13:40
Total Bilirubin 0.2 mg/dl (0.2-1.3) 07/10/24 08:17
AST 20 U/L (17-59) 07/10/24 08:17
ALT 27 U/L (0-50) 07/10/24 08:17
Alkaline Phosphatase 117 U/L (38-126) 07/10/24 08:17
Most recent labs reviewed.
Micro Results:
07/09/24 14:15 Wound Culture - Preliminary
Toe Enterococcus faecalis - VRE
Diptheroids
Gram Stain - Preliminary
07/09/24 14:15 Anaerobic Culture - Preliminary
Toe NO ANAEROBES ISOLATED
07/06/24 15:52 Blood Culture - Final
Blood/Venous No Growth - Final Report
07/06/24 15:52 Blood Culture - Final
Blood/Venous No Growth - Final Report
07/07/24 06:28 Urine Culture - Final
Urine Pseudomonas aeruginosa
07/07/24 03:53 MRSA Screen - Final
Nose Staph aureus MRSA
07/06/24 15:53 Wound Culture - Final
Toe Pseudomonas aeruginosa
Gram Stain - Final
Imaging:
07/06/2024 X-ray left foot: Changes of prior amputation of the first digit and distal aspect of the first metatarsal. There is soft tissue swelling involving the left second toe. There is cortical irregularity and erosion within the proximal
interphalangeal joint and distal aspect of the second proximal phalanx.
Care Review
Plan reviewed with: Physician (Resident)
[2024-07-13] MEDS: LOVENOX 40 MG SC (17:17)
[2024-07-13] MEDS: FOLVITE 50.2 MG IV (17:17)
[2024-07-13] MEDS: LIPITOR 40 MG TUBE (21:17)
[2024-07-13 23:03] VITALS: BP 108/72
[2024-07-14] MEDS: ZOSYN 50 IV ×4 (03:12→20:51)
[2024-07-14] MEDS: D5W 1000 IV (05:41)
--- NOTE | 2024-07-14 07:25 | W.PN.HOSP.TC ---
Addendum entered and electronically signed by Keshav Delatorre MD 07/14/24 14:56:
Seen and examined by me independently in collaboration with the medical data entry clerk.
Lab data and imaging data reviewed.
Addendum as below :
Patient nonverbal which is his baseline.
Afebrile. Oxygenating well on room air. Hemodynamically stable.
Looks nontoxic.
Continue with current antibiotics per ID. Await bone pathology to eval for clear margins.
Original Note:
Today's Communication/Plan
-
Follow wound culture
Continue antibiotics
Follow pathology reports
Assessment / Plan
Assessment / Plan
Interim history: Ruben is a 58-year-old male with PMH of anoxic brain injury, nonverbal, functional quadriplegia who presented to ED on 07/06 for concerns of left second toe infection. On presentation, x-ray was suspicious for osteomyelitis.
However, due to patient's contractures and inability to tolerate an MRI decision was made to proceed with partial left second toe amputation by podiatry. Patient's was in agreement. Patient's surgery was done on 07/09 and patient tolerated.
Patient is currently in the hospital waiting for pathology reports to ensure surgical cure before discharge to home. His antibiotics was narrowed to cefepime, however due to new Pseudomonas infection on urine culture and Enterococcus on 2 culture
patient was switched to Zosyn awaiting final sensitivities.

-----
Assessment/plan:
#Left second toe ulcer with exposed bone-Suspicious for osteomyelitis
-POD #5, s/p left second toe partial amputation with primary closure.
-Toe culture positive for VRE.
-Continue Zosyn per ID.
-Awaiting surgical pathology reports.
-ID appreciated.
-Continue tube feeds.
-Continue wound care.
-Monitor CBC.
# Mild leukocytosis
-Likely inflammatory process.
-Monitor while on antibiotics.
#Chronic macrocytic anemia
-Hb stable
-Suspect anemia of chronic disease with superimposed folate deficiency.
-Continue folic acid supplementation.
-Follow CBC.
#Acute hypovolemic hypernatremia
-Continue flushes at 30 mL/h.
-Monitor BMP while on D5W.
#Superficial stable ulcerations of right lateral fifth and great toes.
-No drainage no erythema.
-Continue wound care.
#MRSA colonized.
-Contact precautions.
-Off vancomycin.
#Abnormal EKG
-Echo reviewed and unchanged from 2021.
#Sepsis
-Suspect source include multiple stage IV pressure injuries in the sacrum and right hip, toe wound/ulcer, Pseudomonas UTI less likely.
-History of ESBL E. coli UTI; contact precautions.
-Blood culture negative, urine culture positive for Pseudomonas sensitive to Zosyn.
-Continue Zosyn as above.
-Follow fever curve.
#Multiple stage IV pressure injuries (POA)
-Multiple pressure injuries noted on sacrum, right hip, right lema, right elbow.
-Wound care.
-Continue antibiotics and follow temperature curve.
#Chronic iron deficiency anemia�anemia of chronic disease
-Hb stable; No evidence of active bleeding.
-Continue iron supplementation.
-Follow CBC.
#Paroxysmal A-fib
-Rate controlled on metoprolol. Patient also on amiodarone.
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
#History of anoxic brain injury�from multiple strokes.
-Quadriplegic s/p trach and GJ tube.
#Suspected severe protein malnutrition with hypoalbuminemia
-Tube feeds.
-Titrate team appreciated
#History of seizures
-Continue valproic acid and Keppra.
DVT PPx: Lovenox
CODE STATUS-DNR After discussing with Pts .
Anticipated Discharge: > 48 hours
Subjective/Interval History
-
Date of Service: July 14, 2024
Patient seen and examined. Patient is nonverbal comfortable.
Objective Data
-
Labs:
Laboratory Results
07/14/24
06:00
WBC Pending
Hgb Pending
Hct Pending
Plt Count Pending
Sodium Pending
Potassium Pending
Chloride Pending
Carbon Dioxide Pending
BUN Pending
Creatinine Pending
Glucose Pending
Calcium Pending
Vital Signs:
Vital Signs
Temp Pulse Resp BP Pulse Ox
99.5 F 84 18 108/72 97
07/13/24 23:03 07/13/24 23:03 07/13/24 23:03 07/13/24 23:03 07/13/24 23:03
I&O
07/13/24 07/14/24 07/15/24
06:59 06:59 06:59
Intake Total 700 / 700
Output Total 1200 / 1200 2300 / 2300
Balance -1200 / -1200 -1600 / -1600
Review of Systems
-
Unable to obtain full review of systems at this time due to: Patient Non-verbal
Physical Exam
-
General: No Apparent Distress, Comfortable, Appears Chronically Ill, Cachectic and Other (contracted)
HEENT: Normocephalic, Atraumatic and Moist Mucous Membranes
Respiratory: Rhonchi, Non Labored Respirations and Other (trach collar); Negative Wheezes or Rales
Cardiac: Regular Rhythm and S1/S2; Negative Murmur, Rub or Gallop
GI: Soft, Nondistended and Normal Bowel Sounds
Musculoskeletal: No Cyanosis, No Edema and Other (Chronic contractures)
Skin: Warm, Dry and Ulcers (B/L Iliac, sacral, posterior hip, R lema, R lateral elbow ); Negative Rash
Neuro: Awake
Psych: Calm
Data Reviewed
-
Diagnostic Radiology: Image personally visualized and interpreted, Report Reviewed by me, Discussed with Physician and Discussed with Family
Labs: Labs Reviewed by me, Discussed with Physician and Discussed with Family
Old Records: Reviewed
[2024-07-14 07:27] VITALS: BP 113/79
[2024-07-14 08:23] LABS: Hematocrit 32.1 % (39.0-52.0); Hemoglobin 9.7 g/dL (13.0-18.0); Mean Corp Hgb Conc. 30.2 g/dL (33.0-37.0); Mean Corpuscular Hgb 32.1 pg (27.0-31.0); Mean Corpuscular Volume 106.3 fL (80.0-94.0); Mean Platelet Volume 9.6 fL (7.4-10.4); Platelet Count 237 10^3/uL (130-400); Red Blood Cell Count 3.02 10^6/uL (4.70-6.10); Red Cell Dist. Width 16.9 % (11.5-14.5); White Blood Cell Count 11.9 10^3/uL (4.8-10.8)
[2024-07-14 09:04] LABS: Blood Urea Nitrogen 30 mg/dl (9-20); Calcium 9.5 mg/dl (8.4-10.2); Carbon Dioxide 27 mmol/L (22-30); Chloride 109 mmol/L (98-107); Estimated Creatinine Clearance 49 ml/min; Glucose 128 mg/dl (70-99); Potassium 4.8 mmol/L (3.5-5.1); Sodium 142 mmol/L (135-145); eGFR > 60.00
[2024-07-14] MEDS: DEPAKENE 125 MG TUBE ×2 (09:28→20:47)
[2024-07-14] MEDS: KEPPRA 750 MG TUBE ×2 (09:30→20:49)
[2024-07-14] MEDS: LOPRESSOR 25 MG TUBE ×2 (09:30→20:51)
[2024-07-14] MEDS: FERROUS SULFATE ORAL LIQUID 300 MG TUBE ×2 (09:30→20:49)
[2024-07-14] MEDS: VITAMIN B1 100 MG TUBE (09:31)
[2024-07-14] MEDS: PACERONE 200 MG TUBE (09:31)
[2024-07-14] MEDS: SANTYL OINTMENT 1 APPLIC TOPICAL (09:33)
[2024-07-14] MEDS: VITAMIN C 500 MG TUBE (09:33)
[2024-07-14] MEDS: DAKIN'S SOLUTION 0.125% 1/4 STRENGTH 473 ML TOPICAL (09:34)
--- NOTE | 2024-07-14 13:12 | CM ---
CM reviewed chart, patient remains on IV antibiotics. CM spoke with [facility] from [facility], will need script upon discharge to resume tube feeds. CM will continue to follow for all discharge planning needs.
Plan; home with , 25/02 caregivers, Andie BENJAMIN, continue tube feeds through [facility], will need script
Andie BENJAMIN
[facility]
--- NOTE | 2024-07-14 13:36 | W.PN.ID1 ---
Date of Service
Date of Service: July 14, 2024
Today's Communication
Continue antibiotics pending path results.
Assessment / Plan
Suspected osteomyelitis of left second toe
- s/p amputation
Multiple decubiti wounds
Seizure disorder
A-fib
TBI
Functional quadriplegia
Recommendations:
Patient status post amputation.
Wound cultures with Pseudomonas. Bone culture with VRE (susceptible to ampicillin)
Pathology remains pending.
Continue with Zosyn pending further culture data.
If proximal margin found to be negative, no further antibiotics are required.
If proximal margin is found to be positive for osteomyelitis, would suggest curative surgery rather than a prolonged course of IV antibiotics.
����������������������������������������������������������
Chief Complaint
-: Other (Left second toe osteomyelitis)
Subjective / Review of Systems
Review of Systems: No Fever
Vital Signs / Physical Exam
Vital Signs
Vital Signs
Temp Pulse Resp BP Pulse Ox
98.7 F 110 18 113/79 94
07/14/24 07:27 07/14/24 09:31 07/14/24 07:27 07/14/24 09:31 07/14/24 07:27
Physical Exam
Constitutional: No Acute Distress
Eyes: Sclera Anicteric
Cardiovascular: S1/S2; Negative S3/S4
Pulmonary: Non Labored
Gastrointestinal: Non Distended
Musculoskeletal: Other (Severe contractions of all extremities.)
Wound: Other (Left foot dressed. )
Neurological: Other (Nonverbal)
Psychological: Calm
Objective Data
Lab Data
Lab Results
07/14/24 08:02
07/14/24 08:02
Estimated Creat Clear 49 ml/min 07/14/24 08:02
Lactic Acid 1.3 mmol/L (0.7-2.0) 07/06/24 13:40
Total Bilirubin 0.2 mg/dl (0.2-1.3) 07/10/24 08:17
AST 20 U/L (17-59) 07/10/24 08:17
ALT 27 U/L (0-50) 07/10/24 08:17
Alkaline Phosphatase 117 U/L (38-126) 07/10/24 08:17
Most recent labs reviewed.
Micro Results:
07/09/24 14:15 Wound Culture - Final
Toe Enterococcus faecalis - VRE
Diptheroids
Gram Stain - Final
07/09/24 14:15 Anaerobic Culture - Final
Toe NO ANAEROBES ISOLATED
07/06/24 15:52 Blood Culture - Final
Blood/Venous No Growth - Final Report
07/06/24 15:52 Blood Culture - Final
Blood/Venous No Growth - Final Report
07/07/24 06:28 Urine Culture - Final
Urine Pseudomonas aeruginosa
07/07/24 03:53 MRSA Screen - Final
Nose Staph aureus MRSA
07/06/24 15:53 Wound Culture - Final
Toe Pseudomonas aeruginosa
Gram Stain - Final
Imaging:
07/06/2024 X-ray left foot: Changes of prior amputation of the first digit and distal aspect of the first metatarsal. There is soft tissue swelling involving the left second toe. There is cortical irregularity and erosion within the proximal
interphalangeal joint and distal aspect of the second proximal phalanx.
[2024-07-14 15:12] VITALS: BP 105/70
[2024-07-14] MEDS: FOLVITE 50.2 MG IV (17:19)
[2024-07-14] MEDS: LOVENOX 40 MG SC (17:19)
--- NOTE | 2024-07-14 18:03 | PTCARENOTE ---
Pt's dressings were soiled on his bottom, and back. Those dressings were changed today 07/14/24. All other dressings intact.
--- NOTE | 2024-07-14 18:49 | W.PN.POD ---
Today's Communication
Today's Communication
Patient stable per podiatry
Assessment / Plan
-
S/P : Left 2nd toe partial amputation POD #5
Stable Rt foot ulcerations
Patient history of CVA with tracheostomy
severely contracted limbs
Plan : Changed surgical dressings to LT foot, applied adaptic, dry gauze and kerlix to LT 2nd toe
VN for every other day dressing changes with the above
Pending pathology
Abx per ID
Will D/W to cont to monitor the toe
Subjective
Chief Complaint
Lt 2nd toe osteomyelitis.
Subjective
PT seen at bedside S/p LT 2nd toe partial amputation, intact surgical dressings, no strike through bleeding noted.
Objective
Temp Pulse Resp BP Pulse Ox
98.7 F 93 18 105/70 94
07/14/24 15:12 07/14/24 15:12 07/14/24 15:12 07/14/24 15:12 07/14/24 15:12
07/14/24 08:02
07/14/24 08:02
Vital Signs and Lab results were reviewed.
LT foot Intact vascular status
Left 2nd toe amputation site is clean, dry serous scab noted, intact sutures, no erythema, no drainage. No SOI
[2024-07-14] MEDS: LIPITOR 40 MG TUBE (20:51)
[2024-07-14 23:00] VITALS: BP 106/71
[2024-07-15] MEDS: ZOSYN 50 IV ×4 (01:47→21:30)
[2024-07-15 07:30] VITALS: BP 130/60
[2024-07-15 07:54] LABS: Hematocrit 31.4 % (39.0-52.0); Hemoglobin 9.7 g/dL (13.0-18.0); Mean Corp Hgb Conc. 30.9 g/dL (33.0-37.0); Mean Corpuscular Hgb 32.7 pg (27.0-31.0); Mean Corpuscular Volume 105.7 fL (80.0-94.0); Mean Platelet Volume 10.3 fL (7.4-10.4); Platelet Count 241 10^3/uL (130-400); Red Blood Cell Count 2.97 10^6/uL (4.70-6.10); White Blood Cell Count 12.6 10^3/uL (4.8-10.8)
[2024-07-15 08:27] LABS: Blood Urea Nitrogen 29 mg/dl (9-20); Calcium 9.3 mg/dl (8.4-10.2); Carbon Dioxide 27 mmol/L (22-30); Chloride 108 mmol/L (98-107); Estimated Creatinine Clearance 49 ml/min; Glucose 110 mg/dl (70-99); Potassium 4.4 mmol/L (3.5-5.1); Sodium 142 mmol/L (135-145); eGFR > 60.00
[2024-07-15] MEDS: KEPPRA 750 MG TUBE ×2 (08:53→21:29)
[2024-07-15] MEDS: FERROUS SULFATE ORAL LIQUID 300 MG TUBE ×2 (08:53→21:28)
[2024-07-15] MEDS: SANTYL OINTMENT 1 APPLIC TOPICAL (08:53)
[2024-07-15] MEDS: PACERONE 200 MG TUBE (08:54)
[2024-07-15] MEDS: VITAMIN B1 100 MG TUBE (08:55)
[2024-07-15] MEDS: LOPRESSOR 25 MG TUBE ×2 (08:55→21:30)
[2024-07-15] MEDS: DEPAKENE 125 MG TUBE ×2 (08:55→21:27)
[2024-07-15] MEDS: VITAMIN C 500 MG TUBE (08:55)
[2024-07-15] MEDS: DAKIN'S SOLUTION 0.125% 1/4 STRENGTH 473 ML TOPICAL (08:56)
--- NOTE | 2024-07-15 10:53 | W.PN.ID1 ---
Date of Service
Date of Service: July 15, 2024
Today's Communication
Continue antibiotics pending further pathology results.
Assessment / Plan
Suspected osteomyelitis of left second toe
- s/p amputation
Multiple decubiti wounds
Seizure disorder
A-fib
TBI
Functional quadriplegia
Recommendations:
Patient status post amputation.
Wound cultures with Pseudomonas. Bone culture with VRE (susceptible to ampicillin)
Pathology remains pending.
Continue with Zosyn pending further culture data.
If proximal margin found to be negative, no further antibiotics are required.
If proximal margin is found to be positive for osteomyelitis, would suggest curative surgery rather than a prolonged course of IV antibiotics.
����������������������������������������������������������
Chief Complaint
-: Other (Left second toe osteomyelitis)
Subjective / Review of Systems
Review of Systems: No Fever and No Chills
Vital Signs / Physical Exam
Vital Signs
Vital Signs
Temp Pulse Resp BP Pulse Ox
97.8 F 68 18 130/60 95
07/15/24 07:30 07/15/24 07:30 07/15/24 07:30 07/15/24 07:30 07/15/24 07:30
Physical Exam
Constitutional: No Acute Distress and Chronically Ill
Eyes: Sclera Anicteric
Cardiovascular: S1/S2; Negative S3/S4
Pulmonary: Non Labored
Gastrointestinal: Non Distended
Musculoskeletal: Other (Severe contractions of all extremities.)
Wound: Other (Left foot dressed. )
Neurological: Other (Nonverbal)
Psychological: Calm
Objective Data
Lab Data
Lab Results
07/15/24 07:17
07/15/24 07:17
Estimated Creat Clear 49 ml/min 07/15/24 07:17
Lactic Acid 1.3 mmol/L (0.7-2.0) 07/06/24 13:40
Total Bilirubin 0.2 mg/dl (0.2-1.3) 07/10/24 08:17
AST 20 U/L (17-59) 07/10/24 08:17
ALT 27 U/L (0-50) 07/10/24 08:17
Alkaline Phosphatase 117 U/L (38-126) 07/10/24 08:17
Most recent labs reviewed.
Micro Results:
07/09/24 14:15 Wound Culture - Final
Toe Enterococcus faecalis - VRE
Diptheroids
Gram Stain - Final
07/09/24 14:15 Anaerobic Culture - Final
Toe NO ANAEROBES ISOLATED
07/06/24 15:52 Blood Culture - Final
Blood/Venous No Growth - Final Report
07/06/24 15:52 Blood Culture - Final
Blood/Venous No Growth - Final Report
07/07/24 06:28 Urine Culture - Final
Urine Pseudomonas aeruginosa
07/07/24 03:53 MRSA Screen - Final
Nose Staph aureus MRSA
07/06/24 15:53 Wound Culture - Final
Toe Pseudomonas aeruginosa
Gram Stain - Final
Imaging:
07/06/2024 X-ray left foot: Changes of prior amputation of the first digit and distal aspect of the first metatarsal. There is soft tissue swelling involving the left second toe. There is cortical irregularity and erosion within the proximal
interphalangeal joint and distal aspect of the second proximal phalanx.
Care Review
Plan reviewed with: Physician (Hospitalist)
[2024-07-15 11:00] VITALS: BP 110/78
--- NOTE | 2024-07-15 13:32 | W.PN.HOSP.TC ---
Today's Communication/Plan
-
Follow bone bx path
CW ABX per ID
Assessment / Plan
Assessment / Plan
Interim history: Ruben is a 58-year-old male with PMH of anoxic brain injury, nonverbal, functional quadriplegia who presented to ED on 07/06 for concerns of left second toe infection. On presentation, x-ray was suspicious for osteomyelitis.
However, due to patient's contractures and inability to tolerate an MRI decision was made to proceed with partial left second toe amputation by podiatry. Patient's was in agreement. Patient's surgery was done on 07/09 and patient tolerated.
Patient is currently in the hospital waiting for pathology reports to ensure surgical cure before discharge to home. His antibiotics was narrowed to cefepime, however due to new Pseudomonas infection on urine culture and Enterococcus on 2 culture
patient was switched to Zosyn awaiting final sensitivities.

-----
Assessment/plan:
#Left second toe ulcer with exposed bone-Suspicious for osteomyelitis
-POD #6, s/p left second toe partial amputation with primary closure.
-Toe culture positive for VRE.
-Continue Zosyn per ID.
-Awaiting surgical pathology reports.
-ID appreciated.
-Continue tube feeds.
-Continue wound care.
-Monitor CBC.
# Mild leukocytosis
-Monitor while on antibiotics.
#Chronic macrocytic anemia
-Hb stable
-Suspect anemia of chronic disease with superimposed folate deficiency.
-Continue folic acid supplementation.
-Follow CBC.
#Acute hypovolemic hypernatremia
-Continue flushes at 30 mL/h.
-Resolved
#Superficial stable ulcerations of right lateral fifth and great toes.
-No drainage no erythema.
-Continue wound care.
#Sepsis
-Suspect source include multiple stage IV pressure injuries in the sacrum and right hip, toe wound/ulcer, Pseudomonas UTI less likely.
-History of ESBL E. coli UTI; contact precautions.
-Blood culture negative, urine culture positive for Pseudomonas sensitive to Zosyn.
-Continue Zosyn as above.
-Follow fever curve.
#Multiple stage IV pressure injuries (POA)
-Multiple pressure injuries noted on sacrum, right hip, right lema, right elbow.
-Wound care.
-Continue antibiotics and follow temperature curve.
#Chronic iron deficiency anemia�anemia of chronic disease
-Hb stable; No evidence of active bleeding.
-Continue iron supplementation.
-Follow CBC.
#Paroxysmal A-fib
-Rate controlled on metoprolol. Patient also on amiodarone.
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
#History of anoxic brain injury�from multiple strokes.
-Quadriplegic s/p trach and GJ tube.
#Suspected severe protein malnutrition with hypoalbuminemia
-Tube feeds.
-Titrate team appreciated
#History of seizures
-Continue valproic acid and Keppra.
DVT PPx: Lovenox
CODE STATUS-DNR
Anticipated Discharge: 24 - 48 hours
Subjective/Interval History
-
Date of Service: July 15, 2024
No overnight issues. Discussed with RN.
Patient nonverbal which is his baseline.
Objective Data
-
Labs:
Laboratory Results
07/15/24
07:17
WBC 12.6 H
Hgb 9.7 L
Hct 31.4 L
Plt Count 241
Sodium 142
Potassium 4.4
Chloride 108 H
Carbon Dioxide 27
BUN 29 H
Creatinine 1.2
Glucose 110 H
Calcium 9.3
Vital Signs:
Vital Signs
Temp Pulse Resp BP Pulse Ox
97.8 F 68 18 130/60 95
07/15/24 07:30 07/15/24 07:30 07/15/24 07:30 07/15/24 07:30 07/15/24 11:27
I&O
07/14/24 07/15/24 07/16/24
06:59 06:59 06:59
Intake Total 700 / 700
Output Total 2300 / 2300 550 / 550
Balance -1600 / -1600 -550 / -550
Review of Systems
-
Unable to obtain full review of systems at this time due to: Patient Non-verbal
Physical Exam
-
General: Negative Respiratory Distress
Respiratory: Non Labored Respirations; Negative Accessory Resp Muscle Use
Cardiac: Regular Rhythm and S1/S2
GI: Soft and Peg Tube
Neuro: Awake and Other (Contractions of the upper and lower extremity as before.)
Psych: Calm
Data Reviewed
-
Labs: Labs Reviewed by me
[2024-07-15 15:00] VITALS: BP 116/80
--- NOTE | 2024-07-15 15:44 | CM ---
CM reviewed chart, patient remains on IV antibiotics. [facility] will need resumption of tube feeds/clinicals faxed upon discharge. Patient will require ambulance transport upon discharge. CM spoke with Leah, liaison for [facility], will need
another referral placed upon discharge. CM will continue to follow for all discharge planning needs.
Plan; home with , 25/02 caregivers, [facility], continue tube feeds through [facility]
[2024-07-15] MEDS: FOLVITE 50.2 MG IV (15:52)
[2024-07-15] MEDS: LOVENOX 40 MG SC (18:07)
[2024-07-15] MEDS: LIPITOR 40 MG TUBE (21:30)
[2024-07-15 23:00] VITALS: BP 132/91
[2024-07-16] MEDS: ZOSYN 50 IV ×4 (01:46→20:59)
--- NOTE | 2024-07-16 03:29 | DOWNTIME ---
There was a [employer] Client Genetic Scientist Downtime on 07/16/2024 from 0200 to 07/16/2024 at 0325 . Downtime documentation of patient's care, including medication administrations, has been reconciled in the electronic record per guidelines. Refer to the
patient's paper chart under the miscellaneous tab to see printed paper medication records and downtime forms.
[2024-07-16 07:00] VITALS: BP 130/93
[2024-07-16 08:49] LABS: Hemoglobin 10.1 g/dL (13.0-18.0); Mean Corp Hgb Conc. 30.6 g/dL (33.0-37.0); Mean Corpuscular Hgb 32.6 pg (27.0-31.0); Mean Corpuscular Volume 106.5 fL (80.0-94.0); Mean Platelet Volume 10.2 fL (7.4-10.4); Platelet Count 262 10^3/uL (130-400)
[2024-07-16] MEDS: DAKIN'S SOLUTION 0.125% 1/4 STRENGTH 473 ML TOPICAL (09:10)
[2024-07-16] MEDS: SANTYL OINTMENT 1 APPLIC TOPICAL (09:12)
[2024-07-16] MEDS: KEPPRA 750 MG TUBE ×2 (09:12→21:01)
[2024-07-16] MEDS: LOPRESSOR 25 MG TUBE ×2 (09:12→21:02)
[2024-07-16] MEDS: VITAMIN B1 100 MG TUBE (09:14)
[2024-07-16] MEDS: DEPAKENE 125 MG TUBE ×2 (09:14→21:00)
[2024-07-16] MEDS: PACERONE 200 MG TUBE (09:14)
[2024-07-16] MEDS: VITAMIN C 500 MG TUBE (09:14)
[2024-07-16] MEDS: FERROUS SULFATE ORAL LIQUID 300 MG TUBE ×2 (09:14→21:00)
--- NOTE | 2024-07-16 10:12 | PTCARENOTE ---
pt had all of his dressings removed and changed this morning with the tech. Pt was also changed, bathed, and a warm hair cap was placed on his head to wash his hair. Pt was also given new sheets and a blanket
--- NOTE | 2024-07-16 11:45 | RESPNOTE ---
SpO2 98% on TC @ [facility]. TC for humidity. stoma sight looks dry and intact.
--- NOTE | 2024-07-16 13:18 | W.PN.HOSP.TC ---
Today's Communication/Plan
-
Continue with antibiotics.Follow WBC.
Follow bone marrow biopsy pathology report.
Assessment / Plan
Assessment / Plan
Interim history: Ruben is a 58-year-old male with PMH of anoxic brain injury, nonverbal, functional quadriplegia who presented to ED on 07/06 for concerns of left second toe infection. On presentation, x-ray was suspicious for osteomyelitis.
However, due to patient's contractures and inability to tolerate an MRI decision was made to proceed with partial left second toe amputation by podiatry. Patient's was in agreement. Patient's surgery was done on 07/09 and patient tolerated.
Patient is currently in the hospital waiting for pathology reports to ensure surgical cure before discharge to home. His antibiotics was narrowed to cefepime, however due to new Pseudomonas infection on urine culture and Enterococcus on 2 culture
patient was switched to Zosyn awaiting final sensitivities.

-----
Assessment/plan:
#Left second toe ulcer with exposed bone-Suspicious for osteomyelitis
-POD #6, s/p left second toe partial amputation with primary closure.
-Toe culture positive for VRE.
-Raising WBC noted.
-Continue Zosyn per ID.
-Awaiting surgical pathology reports.
-ID appreciated.
-Continue tube feeds.
-Continue wound care.
-Monitor CBC.
#Chronic macrocytic anemia
-Hb stable
-Suspect anemia of chronic disease with superimposed folate deficiency.
-Continue folic acid supplementation.
-Follow CBC.
#Acute hypovolemic hypernatremia
-Continue flushes at 30 mL/h.
-Resolved
#Superficial stable ulcerations of right lateral fifth and great toes.
-No drainage no erythema.
-Continue wound care.
#Sepsis
-Suspect source include multiple stage IV pressure injuries in the sacrum and right hip, toe wound/ulcer, Pseudomonas UTI less likely.
-History of ESBL E. coli UTI; contact precautions.
-Blood culture negative, urine culture positive for Pseudomonas sensitive to Zosyn.
-Continue Zosyn as above.
-Follow fever curve.
#Multiple stage IV pressure injuries (POA)
-Multiple pressure injuries noted on sacrum, right hip, right lema, right elbow.
-Wound care.
-Continue antibiotics and follow temperature curve.
#Chronic iron deficiency anemia�anemia of chronic disease
-Hb stable; No evidence of active bleeding.
-Continue iron supplementation.
-Follow CBC.
#Paroxysmal A-fib
-Rate controlled on metoprolol. Patient also on amiodarone.
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
#History of anoxic brain injury�from multiple strokes.
-Quadriplegic s/p trach and GJ tube.
#Suspected severe protein malnutrition with hypoalbuminemia
-Tube feeds.
-Titrate team appreciated
#History of seizures
-Continue valproic acid and Keppra.
DVT PPx: Lovenox
CODE STATUS-DNR
Anticipated Discharge: > 48 hours
Subjective/Interval History
-
Date of Service: July 16, 2024
Patient nonverbal which is his baseline. Discussed with RN-no overnight events.
Objective Data
-
Labs:
Laboratory Results
07/16/24
07:46
WBC 13.0 H
Hgb 10.1 L
Hct 33.0 L
Plt Count 262
Vital Signs:
Vital Signs
Temp Pulse Resp BP Pulse Ox
97.5 F 116 24 131/91 99
07/16/24 07:00 07/16/24 07:00 07/16/24 07:00 07/16/24 09:12 07/16/24 07:00
I&O
07/15/24 07/16/24 07/17/24
06:59 06:59 06:59
Intake Total 100 / 100
Output Total 550 / 550 1050 / 1050
Balance -550 / -550 -950 / -950
Review of Systems
-
Unable to obtain full review of systems at this time due to: Patient Non-verbal
Physical Exam
-
General: No Apparent Distress
Respiratory: Non Labored Respirations; Negative Accessory Resp Muscle Use
Cardiac: Regular Rhythm and S1/S2; Negative Tachycardic
GI: Soft and Peg Tube
Neuro: Awake, Alert and Other (Nonverbal. Limb contractures.)
Psych: Calm
Data Reviewed
-
Labs: Labs Reviewed by me
[2024-07-16 15:00] VITALS: BP 119/87
--- NOTE | 2024-07-16 16:10 | W.PN.ID1 ---
Date of Service
Date of Service: July 16, 2024
Today's Communication
Continue antibiotics. Await final pathology results.
Assessment / Plan
Suspected osteomyelitis of left second toe
- s/p amputation
- path pending.
Multiple decubiti wounds
Seizure disorder
A-fib
TBI
Functional quadriplegia
Recommendations:
Patient status post amputation 07/09/24
Wound cultures with Pseudomonas. Bone culture with VRE (susceptible to ampicillin)
Pathology remains pending at this time
Continue with Zosyn (d#11 abx)
If proximal margin found to be negative, no further antibiotics are required.
If proximal margin is found to be positive for osteomyelitis, would suggest curative surgery rather than a prolonged course of IV antibiotics.
����������������������������������������������������������
Chief Complaint
-: Other (Left second toe osteomyelitis)
Subjective / Review of Systems
Review of Systems: No Fever
Vital Signs / Physical Exam
Vital Signs
Vital Signs
Temp Pulse Resp BP Pulse Ox
99 F 115 22 119/87 100
07/16/24 15:00 07/16/24 15:00 07/16/24 15:00 07/16/24 15:00 07/16/24 15:00
Physical Exam
Constitutional: No Acute Distress and Chronically Ill
Eyes: Sclera Anicteric
Cardiovascular: Regular Rate and S1/S2
Pulmonary: Non Labored
Gastrointestinal: Non Distended
Musculoskeletal: Other (Severe contractions of all extremities.)
Skin: Warm and Dry
Wound: Other (Left foot dressed. )
Neurological: Other (Nonverbal but opens eyes.)
Psychological: Calm
Objective Data
Lab Data
Lab Results
07/16/24 07:46
07/15/24 07:17
Estimated Creat Clear 49 ml/min 07/15/24 07:17
Lactic Acid 1.3 mmol/L (0.7-2.0) 07/06/24 13:40
Total Bilirubin 0.2 mg/dl (0.2-1.3) 07/10/24 08:17
AST 20 U/L (17-59) 07/10/24 08:17
ALT 27 U/L (0-50) 07/10/24 08:17
Alkaline Phosphatase 117 U/L (38-126) 07/10/24 08:17
Most recent labs reviewed.
Micro Results:
07/09/24 14:15 Wound Culture - Final
Toe Enterococcus faecalis - VRE
Diptheroids
Gram Stain - Final
07/09/24 14:15 Anaerobic Culture - Final
Toe NO ANAEROBES ISOLATED
07/06/24 15:52 Blood Culture - Final
Blood/Venous No Growth - Final Report
07/06/24 15:52 Blood Culture - Final
Blood/Venous No Growth - Final Report
07/07/24 06:28 Urine Culture - Final
Urine Pseudomonas aeruginosa
07/07/24 03:53 MRSA Screen - Final
Nose Staph aureus MRSA
07/06/24 15:53 Wound Culture - Final
Toe Pseudomonas aeruginosa
Gram Stain - Final
Imaging:
07/06/2024 X-ray left foot: Changes of prior amputation of the first digit and distal aspect of the first metatarsal. There is soft tissue swelling involving the left second toe. There is cortical irregularity and erosion within the proximal
interphalangeal joint and distal aspect of the second proximal phalanx.
Care Review
Plan reviewed with: Physician (Hospitalist)
[2024-07-16] MEDS: LOVENOX 40 MG SC (16:57)
[2024-07-16] MEDS: FOLVITE 50.2 MG IV (16:57)
[2024-07-16] MEDS: LIPITOR 40 MG TUBE (21:00)
[2024-07-16 23:07] VITALS: BP 113/73
[2024-07-17] MEDS: ZOSYN 50 IV ×4 (01:00→20:54)
[2024-07-17 07:00] VITALS: BP 121/88
--- NOTE | 2024-07-17 08:07 | W.PN.ID1 ---
Date of Service
Date of Service: July 17, 2024
Today's Communication
Continue Zosyn for today.
Assessment / Plan
Suspected osteomyelitis of left second toe
- s/p amputation
- path pending.
Multiple decubiti wounds
Seizure disorder
A-fib
TBI
Functional quadriplegia
Recommendations:
Patient status post amputation 07/09/24
Wound cultures with Pseudomonas. Bone culture with VRE (susceptible to ampicillin)
Pathology reviewed. Will ask Podiatry to comment upon interpretation as it is not clear whether there is any residual osteomyelitis given that the study shows osteomyelitis at the collagenous end.
Continue with Zosyn (d#12 abx)
If proximal margin determined to be negative, no further antibiotics are required.
If proximal margin is determined to be positive for residual osteomyelitis, would suggest curative surgery rather than a prolonged course of IV antibiotics.
����������������������������������������������������������
Chief Complaint
-: Other (Left second toe osteomyelitis)
Subjective / Review of Systems
Seen and examined. No significant changes overnight.
Vital Signs / Physical Exam
Vital Signs
Vital Signs
Temp Pulse Resp BP Pulse Ox
97.6 F 73 16 113/73 97
07/16/24 23:07 07/16/24 23:07 07/16/24 23:07 07/16/24 23:07 07/16/24 23:07
Physical Exam
Constitutional: No Acute Distress and Chronically Ill
Head: Other (Temporal wasting.)
Eyes: Sclera Anicteric
Cardiovascular: Regular Rate and S1/S2
Pulmonary: Non Labored
Gastrointestinal: Non Distended
Musculoskeletal: Other (Severe contractions of all extremities.)
Skin: Warm and Dry
Wound: Other (Left foot dressed. Amp site clean and dry. Sutures in place. No open wound or drainage.)
Neurological: Other (Nonverbal but opens eyes.)
Psychological: Calm
Objective Data
Lab Data
Lab Results
07/15/24 07:17
Estimated Creat Clear 49 ml/min 07/15/24 07:17
Lactic Acid 1.3 mmol/L (0.7-2.0) 07/06/24 13:40
Total Bilirubin 0.2 mg/dl (0.2-1.3) 07/10/24 08:17
AST 20 U/L (17-59) 07/10/24 08:17
ALT 27 U/L (0-50) 07/10/24 08:17
Alkaline Phosphatase 117 U/L (38-126) 07/10/24 08:17
Most recent labs reviewed.
Micro Results:
07/09/24 14:15 Wound Culture - Final
Toe Enterococcus faecalis - VRE
Diptheroids
Gram Stain - Final
07/09/24 14:15 Anaerobic Culture - Final
Toe NO ANAEROBES ISOLATED
07/06/24 15:52 Blood Culture - Final
Blood/Venous No Growth - Final Report
07/06/24 15:52 Blood Culture - Final
Blood/Venous No Growth - Final Report
07/07/24 06:28 Urine Culture - Final
Urine Pseudomonas aeruginosa
07/07/24 03:53 MRSA Screen - Final
Nose Staph aureus MRSA
07/06/24 15:53 Wound Culture - Final
Toe Pseudomonas aeruginosa
Gram Stain - Final
Imaging:
07/06/2024 X-ray left foot: Changes of prior amputation of the first digit and distal aspect of the first metatarsal. There is soft tissue swelling involving the left second toe. There is cortical irregularity and erosion within the proximal
interphalangeal joint and distal aspect of the second proximal phalanx.
Pathology:
07/09/2024 toe, left, second, amputation: Purulent ulcer noted. Acute and chronic osteomyelitis seen. Specifically acute osteomyelitis focally involves inked proximal collagenous and of main specimen. Acute and chronic osteomyelitis involves
detached portion of bone.
Care Review
Plan reviewed with: Physician (Hospitalist)
[2024-07-17] MEDS: SANTYL OINTMENT 1 APPLIC TOPICAL (09:25)
[2024-07-17] MEDS: VITAMIN B1 100 MG TUBE (09:27)
[2024-07-17] MEDS: KEPPRA 750 MG TUBE ×2 (09:27→20:54)
[2024-07-17] MEDS: VITAMIN C 500 MG TUBE (09:28)
[2024-07-17] MEDS: FERROUS SULFATE ORAL LIQUID 300 MG TUBE ×2 (09:28→20:55)
[2024-07-17] MEDS: DEPAKENE 125 MG TUBE ×2 (09:28→20:57)
[2024-07-17] MEDS: LOPRESSOR 25 MG TUBE ×2 (09:29→20:57)
[2024-07-17] MEDS: PACERONE 200 MG TUBE (09:29)
[2024-07-17] MEDS: DAKIN'S SOLUTION 0.125% 1/4 STRENGTH 30 ML TOPICAL (09:30)
[2024-07-17 09:41] LABS: Hematocrit 33.2 % (39.0-52.0); Hemoglobin 10.2 g/dL (13.0-18.0); Mean Corp Hgb Conc. 30.7 g/dL (33.0-37.0); Mean Corpuscular Hgb 32.9 pg (27.0-31.0); Mean Corpuscular Volume 107.1 fL (80.0-94.0); Mean Platelet Volume 10.2 fL (7.4-10.4); Platelet Count 263 10^3/uL (130-400); Red Cell Dist. Width 17.2 % (11.5-14.5)
--- NOTE | 2024-07-17 14:05 | W.PN.HOSP.TC ---
Addendum entered and electronically signed by Keshav Delatorre MD 07/17/24 16:04:
Nutrition - resume enteral feeds at home as ordered prior to hospital
Original Note:
Today's Communication/Plan
-
Podiatry to review bone pathology and give further recs.
DC plans based on it.
Assessment / Plan
Assessment / Plan
Interim history: Ruben is a 58-year-old male with PMH of anoxic brain injury, nonverbal, functional quadriplegia who presented to ED on 07/06 for concerns of left second toe infection. On presentation, x-ray was suspicious for osteomyelitis.
However, due to patient's contractures and inability to tolerate an MRI decision was made to proceed with partial left second toe amputation by podiatry. Patient's was in agreement. Patient's surgery was done on 07/09 and patient tolerated.
Patient is currently in the hospital waiting for pathology reports to ensure surgical cure before discharge to home. His antibiotics was narrowed to cefepime, however due to new Pseudomonas infection on urine culture and Enterococcus on 2 culture
patient was switched to Zosyn awaiting final sensitivities.

-----
Assessment/plan:
#Left second toe ulcer with exposed bone-Suspicious for osteomyelitis
-POD #6, s/p left second toe partial amputation with primary closure.
-Toe culture positive for VRE.
-Raising WBC noted.
-Continue Zosyn per ID.
-Surgical pathology reports reviewed - podiatry will review and let me know her plans.
-ID appreciated.
-Continue tube feeds.
-Continue wound care.
-Monitor CBC.
#Chronic macrocytic anemia
-Hb stable
-Suspect anemia of chronic disease with superimposed folate deficiency.
-Continue folic acid supplementation.
-Follow CBC.
#Acute hypovolemic hypernatremia
-Continue flushes at 30 mL/h.
-Resolved
#Superficial stable ulcerations of right lateral fifth and great toes.
-No drainage no erythema.
-Continue wound care.
#Sepsis
-Suspect source include multiple stage IV pressure injuries in the sacrum and right hip, toe wound/ulcer, Pseudomonas UTI less likely.
-History of ESBL E. coli UTI; contact precautions.
-Blood culture negative, urine culture positive for Pseudomonas sensitive to Zosyn.
-Continue Zosyn as above.
-Follow fever curve.
#Multiple stage IV pressure injuries (POA)
-Multiple pressure injuries noted on sacrum, right hip, right lema, right elbow.
-Wound care.
-Continue antibiotics and follow temperature curve.
#Chronic iron deficiency anemia�anemia of chronic disease
-Hb stable; No evidence of active bleeding.
-Continue iron supplementation.
-Follow CBC.
#Paroxysmal A-fib
-Rate controlled on metoprolol. Patient also on amiodarone.
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
#History of anoxic brain injury�from multiple strokes.
-Quadriplegic s/p trach and GJ tube.
#Suspected severe protein malnutrition with hypoalbuminemia
-Tube feeds.
-Titrate team appreciated
#History of seizures
-Continue valproic acid and Keppra.
DVT PPx: Lovenox
CODE STATUS-DNR
Anticipated Discharge: Within 24 hours
Subjective/Interval History
-
Date of Service: July 17, 2024
No overnight events.
Objective Data
-
Labs:
Laboratory Results
07/17/24
08:50
WBC 12.0 H
Hgb 10.2 L
Hct 33.2 L
Plt Count 263
Vital Signs:
Vital Signs
Temp Pulse Resp BP Pulse Ox
98.1 F 110 2 121/88 99
07/17/24 07:00 07/17/24 07:00 07/17/24 07:00 07/17/24 07:00 07/17/24 07:00
I&O
07/16/24 07/17/24 07/18/24
06:59 06:59 06:59
Intake Total 100 / 100 560 / 560
Output Total 1050 / 1050 775 / 775
Balance -950 / -950 -215 / -215
Review of Systems
-
Unable to obtain full review of systems at this time due to: Patient Non-verbal
Physical Exam
-
General: No Apparent Distress
Respiratory: Non Labored Respirations and Other (Tolerating trach collar); Negative Accessory Resp Muscle Use
Cardiac: Regular Rhythm and S1/S2
GI: Soft and Peg Tube
Neuro: Awake and Alert
Psych: Calm
Data Reviewed
-
Labs: Labs Reviewed by me
[2024-07-17 15:00] VITALS: BP 110/68
--- NOTE | 2024-07-17 15:33 | WOUNDNOTE ---
RIGHT MEDIAL LEG
--- NOTE | 2024-07-17 15:36 | WOUNDNOTE ---
LEFT SECOND TOE AMPUTATION SITE
--- NOTE | 2024-07-17 15:38 | WOUNDNOTE ---
RIGHT MEDIAL FOOT
--- NOTE | 2024-07-17 15:39 | WOUNDNOTE ---
LEFT HIP AND SACRUM
--- NOTE | 2024-07-17 15:46 | WOUNDNOTE ---
[facility] RN NOTE: Patient visited to follow up on multiple PI to sacrum, bilateral iliac crests and right medial leg. Patient was found to be on properly inflated static air overlay in semi-side lying position. Nursing staff using air cushions, pillows
and adhesive foams to bony areas to protect skin from pressure of contracted limbs. Wound care was completed with RN's Harsh, Arin Dickens and Frances. Patient was given incontinence care during assessment as well. All wounds appear stable when
compared from pictures from 07/07. Current wound care continues to be appropriate. Patient has new fungal appearing rash on back, buttock/groin and behind ears. Will recommend use of antifungal ointment for behind ears and back and Desenex powder to
buttocks/groin. Orders also updated for left second toe amp site as noted in podiatry note. Orders confirmed with hospitalist. Care plan and discharge instructions updated. RN Harsh given update. Plan is for discharge to home.
--- NOTE | 2024-07-17 15:57 | WOUNDNOTE ---
[facility] RN NOTE: Patient visited to follow up on multiple PI to sacrum, bilateral iliac crests and right medial leg. Patient was found to be on properly inflated static air overlay in semi-side lying position. Nursing staff using air cushions, pillows
and adhesive foams to bony areas to protect skin from pressure of contracted limbs. Wound care was completed with RN's Harsh, Arin Dickens and Frances. Patient was given incontinence care during assessment as well. All wounds appear stable when
compared from pictures from 07/07. Current wound care continues to be appropriate. Patient has new fungal appearing rash on back, buttock/groin and behind ears. Will recommend use of antifungal ointment for behind ears and back and Desenex powder to
buttocks/groin. Protective adhesive recently applied to left elbow and bilateral heels. Patient has several comorbidities including BMI 16, and immobility with contracted extremities. Per physician notes, patient has poor prognosis. Wounds may
worsen and new wounds may develop even with optimal care. Orders also updated for left second toe amp site as noted in podiatry note. Orders confirmed with hospitalist. Care plan and discharge instructions updated. [facility] given update. Plan is
for discharge to home.
--- NOTE | 2024-07-17 15:59 | W.PN.POD ---
Today's Communication
Today's Communication
Patient stable per podiatry , can be d/c ed home
they can f/u in my office for post op check in 2 wks
Assessment / Plan
-
S/P : Left 2nd toe partial amputation POD #
Stable Rt foot ulcerations
Patient history of CVA with tracheostomy
severely contracted limbs
Plan : Changed surgical dressings to LT foot, applied adaptic, dry gauze and kerlix to LT 2nd toe
VN for every other day dressing changes with the above
pathology report reviewed presence of osteomyelitis, though not confirmed by the report , I feel that most of the infected bone was resected and patient can be off of the abx , Will cont to monitor the toe for any changes
Will D/W to cont to monitor the toe
Subjective
Chief Complaint
Lt 2nd toe osteomyelitis.
Subjective
PT seen at bedside S/p LT 2nd toe partial amputation, intact surgical dressings, no strike through bleeding noted.
Objective
Temp Pulse Resp BP Pulse Ox
98.1 F 110 2 121/88 99
07/17/24 07:00 07/17/24 07:00 07/17/24 07:00 07/17/24 07:00 07/17/24 07:00
07/17/24 08:50
07/15/24 07:17
Vital Signs and Lab results were reviewed.
LT foot Intact vascular status
Left 2nd toe amputation site is clean, dry serous scab noted, intact sutures, no erythema, no drainage. No SOI
--- NOTE | 2024-07-17 16:01 | CM ---
CM reviewed chart, Podiatry to review bone pathology. Patient on IV antibiotics. Updated referral sent to [facility], clinicals faxed to [facility]. Ambulance forms on chart. CM will continue to follow for all discharge planning needs.
Plan; home with , 25/02 caregivers, [facility], continue tube feeds through [facility]
[2024-07-17] MEDS: LOVENOX 40 MG SC (17:59)
[2024-07-17] MEDS: FOLVITE 50.2 MG IV (17:59)
[2024-07-17] MEDS: DESENEX/MITRAZOL/ZEASORB 1 APPLIC TOPICAL (20:55)
[2024-07-17] MEDS: ANTIFUNGAL CLEAR 1 APPLIC TOPICAL (20:56)
[2024-07-17] MEDS: LIPITOR 40 MG TUBE (21:01)
[2024-07-17 23:10] VITALS: BP 112/69
[2024-07-18] MEDS: ZOSYN 50 IV ×2 (01:33→09:00)
[2024-07-18 07:00] VITALS: BP 110/77
[2024-07-18 08:47] VITALS: BP 110/77
[2024-07-18] MEDS: DEPAKENE 125 MG TUBE ×2 (09:00→21:37)
[2024-07-18] MEDS: PACERONE 200 MG TUBE (09:00)
[2024-07-18] MEDS: FERROUS SULFATE ORAL LIQUID 300 MG TUBE ×2 (09:00→21:37)
[2024-07-18] MEDS: VITAMIN B1 100 MG TUBE (09:00)
[2024-07-18] MEDS: SANTYL OINTMENT 1 APPLIC TOPICAL (09:00)
[2024-07-18] MEDS: LOPRESSOR 25 MG TUBE ×2 (09:01→21:40)
[2024-07-18] MEDS: VITAMIN C 500 MG TUBE (09:01)
[2024-07-18] MEDS: KEPPRA 750 MG TUBE ×2 (09:01→21:39)
[2024-07-18] MEDS: DAKIN'S SOLUTION 0.125% 1/4 STRENGTH 30 ML TOPICAL (09:05)
[2024-07-18] MEDS: DESENEX/MITRAZOL/ZEASORB 1 APPLIC TOPICAL ×2 (09:06→21:36)
[2024-07-18] MEDS: ANTIFUNGAL CLEAR 1 APPLIC TOPICAL ×2 (09:07→21:36)
[2024-07-18 09:13] LABS: Hematocrit 32.1 % (39.0-52.0); Hemoglobin 9.8 g/dL (13.0-18.0); Mean Corp Hgb Conc. 30.5 g/dL (33.0-37.0); Mean Corpuscular Hgb 32.5 pg (27.0-31.0); Mean Corpuscular Volume 106.3 fL (80.0-94.0); Platelet Count 270 10^3/uL (130-400); Red Blood Cell Count 3.02 10^6/uL (4.70-6.10); White Blood Cell Count 13.4 10^3/uL (4.8-10.8)
--- NOTE | 2024-07-18 11:23 | W.PN.HOSP.TC ---
Today's Communication/Plan
-
DC planning
Assessment / Plan
Assessment / Plan
Interim history: Ruben is a 58-year-old male with PMH of anoxic brain injury, nonverbal, functional quadriplegia who presented to ED on 07/06 for concerns of left second toe infection. On presentation, x-ray was suspicious for osteomyelitis.
However, due to patient's contractures and inability to tolerate an MRI decision was made to proceed with partial left second toe amputation by podiatry. Patient's was in agreement. Patient's surgery was done on 07/09 and patient tolerated.
Patient is currently in the hospital waiting for pathology reports to ensure surgical cure before discharge to home. His antibiotics was narrowed to cefepime, however due to new Pseudomonas infection on urine culture and Enterococcus on 2 culture
patient was switched to Zosyn awaiting final sensitivities.

-----
Assessment/plan:
#Left second toe ulcer with exposed bone-Suspicious for osteomyelitis
-POD #7, s/p left second toe partial amputation with primary closure.
-Toe culture positive for VRE prior to amputation
-Leukocytosis noted.
-Continue Zosyn per ID.
-Surgical pathology reports reviewed - podiatry input noted -wound looks clean and they think all infected tissues are resected and ok for holding abx.
-ID following.
-Continue tube feeds.
-Continue wound care.
-Monitor CBC.
#Chronic macrocytic anemia
-Hb stable
-Suspect anemia of chronic disease with superimposed folate deficiency.
-Continue folic acid supplementation.
-Follow CBC.
#Acute hypovolemic hypernatremia
-Continue flushes at 30 mL/h.
-Resolved
#Superficial stable ulcerations of right lateral fifth and great toes.
-No drainage no erythema.
-Continue wound care.
#Sepsis
-Suspect source include multiple stage IV pressure injuries in the sacrum and right hip, toe wound/ulcer, Pseudomonas UTI less likely.
-History of ESBL E. coli UTI; contact precautions.
-Blood culture negative, urine culture positive for Pseudomonas sensitive to Zosyn.
-Continue Zosyn as above.
-Follow fever curve.
#Multiple stage IV pressure injuries (POA)
-Multiple pressure injuries noted on sacrum, right hip, right lema, right elbow.
-Wound care.
-Continue antibiotics and follow temperature curve.
#Chronic iron deficiency anemia�anemia of chronic disease
-Hb stable; No evidence of active bleeding.
-Continue iron supplementation.
-Follow CBC.
#Paroxysmal A-fib
-Rate controlled on metoprolol. Patient also on amiodarone.
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
#History of anoxic brain injury�from multiple strokes.
-Quadriplegic s/p trach and GJ tube.
#Suspected severe protein malnutrition with hypoalbuminemia
-Tube feeds.
-Titrate team appreciated
#History of seizures
-Continue valproic acid and Keppra.
DVT PPx: Lovenox
CODE STATUS-DNR
DC planning based on ID plan
Anticipated Discharge: Today
Subjective/Interval History
-
Date of Service: July 18, 2024
No overnight events.
Alert and comfortable. Does not track people. Nonverbal.
Objective Data
-
Labs:
Laboratory Results
07/18/24
09:00
WBC 13.4 H
Hgb 9.8 L
Hct 32.1 L
Plt Count 270
Vital Signs:
Vital Signs
Temp Pulse Resp BP Pulse Ox
99.3 F 106 20 110/77 99
07/18/24 07:00 07/18/24 07:00 07/18/24 07:00 07/18/24 07:00 07/18/24 07:00
I&O
07/17/24 07/18/24 07/19/24
06:59 06:59 06:59
Intake Total 560 / 560 1180 / 1180
Output Total 775 / 775 1400 / 1400
Balance -215 / -215 -220 / -220
Review of Systems
-
Unable to obtain full review of systems at this time due to: Patient Non-verbal
Physical Exam
-
General: Negative Respiratory Distress
Respiratory: Non Labored Respirations; Negative Accessory Resp Muscle Use
Cardiac: Regular Rhythm and S1/S2
GI: Soft and Peg Tube
Neuro: Awake and Alert
Data Reviewed
-
Labs: Labs Reviewed by me
--- NOTE | 2024-07-18 14:04 | W.PN.ID1 ---
Date of Service
Date of Service: July 18, 2024
Today's Communication
DC zosyn and observe.
Assessment / Plan
Osteomyelitis of left second toe
- s/p partial amputation 07/09
Multiple decubiti wounds
Seizure disorder
A-fib
TBI
Functional quadriplegia
Recommendations:
Patient status post amputation 07/09/24
Wound cultures with Pseudomonas. Bone culture with VRE (susceptible to ampicillin)
Pathology reviewed. Asked Podiatry to comment upon interpretation as it is not clear whether there is any residual osteomyelitis given that the study shows osteomyelitis at the collagenous end. Podiatry, Dr. Cool, felt most of the infected
bone was resected and patient can be off of the abx.
Discontinue Zosyn (d#13 abx) and observe.
Leukocytosis waxes and wanes. Monitor for now.
����������������������������������������������������������
Chief Complaint
-: Other (Left second toe osteomyelitis)
Subjective / Review of Systems
Nonverbal.
Vital Signs / Physical Exam
Vital Signs
Vital Signs
Temp Pulse Resp BP Pulse Ox
99.3 F 106 20 110/77 99
07/18/24 07:00 07/18/24 07:00 07/18/24 07:00 07/18/24 07:00 07/18/24 07:00
Physical Exam
Constitutional: Chronically Ill and Cachetic
Eyes: Sclera Anicteric
Pulmonary: Rhonchi
Gastrointestinal: Soft, Non Tender, Non Distended and Other (PEG in place)
Musculoskeletal: Other (extremely contracted extremities)
Objective Data
Lab Data
Lab Results
07/18/24 09:00
07/15/24 07:17
Estimated Creat Clear 49 ml/min 07/15/24 07:17
Lactic Acid 1.3 mmol/L (0.7-2.0) 07/06/24 13:40
Total Bilirubin 0.2 mg/dl (0.2-1.3) 07/10/24 08:17
AST 20 U/L (17-59) 07/10/24 08:17
ALT 27 U/L (0-50) 07/10/24 08:17
Alkaline Phosphatase 117 U/L (38-126) 07/10/24 08:17
Most recent labs reviewed.
Micro Results:
07/09/24 14:15 Wound Culture - Final
Toe Enterococcus faecalis - VRE
Diptheroids
Gram Stain - Final
07/09/24 14:15 Anaerobic Culture - Final
Toe NO ANAEROBES ISOLATED
07/06/24 15:52 Blood Culture - Final
Blood/Venous No Growth - Final Report
07/06/24 15:52 Blood Culture - Final
Blood/Venous No Growth - Final Report
07/07/24 06:28 Urine Culture - Final
Urine Pseudomonas aeruginosa
07/07/24 03:53 MRSA Screen - Final
Nose Staph aureus MRSA
07/06/24 15:53 Wound Culture - Final
Toe Pseudomonas aeruginosa
Gram Stain - Final
Imaging:
07/06/2024 X-ray left foot: Changes of prior amputation of the first digit and distal aspect of the first metatarsal. There is soft tissue swelling involving the left second toe. There is cortical irregularity and erosion within the proximal
interphalangeal joint and distal aspect of the second proximal phalanx.
Pathology:
07/09/2024 toe, left, second, amputation: Purulent ulcer noted. Acute and chronic osteomyelitis seen. Specifically acute osteomyelitis focally involves inked proximal collagenous and of main specimen. Acute and chronic osteomyelitis involves
detached portion of bone.
Care Review
Plan reviewed with: Physician (Dr. Jessi Delatorre)
[2024-07-18 15:00] VITALS: BP 111/76
[2024-07-18] MEDS: LOVENOX 40 MG SC (18:39)
[2024-07-18] MEDS: FOLVITE 50.2 MG IV (18:40)
[2024-07-18] MEDS: LIPITOR 40 MG TUBE (21:40)
[2024-07-18 23:00] VITALS: BP 141/70
[2024-07-19] MEDS: DAKIN'S SOLUTION 0.125% 1/4 STRENGTH 1 ML TOPICAL (06:42)
[2024-07-19] MEDS: SANTYL OINTMENT 1 APPLIC TOPICAL (06:42)
[2024-07-19 07:00] LABS: % Basophils 0.3 % (0-2); % Eosinophils 2.8 % (0-6); % Immature Granulocytes 0.5 % (0-0.5); % Lymphocytes 17.5 % (20.5-51.1); % Monocytes 7.5 % (1.7-9.3); % Neutrophils 71.4 % (42.2-75.2); Absolute Eosinophils 0.3 10^3/uL (0-0.7); Absolute Immature Granulocytes 0.1 10^3/uL (0-0.05); Absolute Monocytes 0.8 10^3/uL (0.1-0.6); Hematocrit 34.5 % (39.0-52.0); Hemoglobin 10.1 g/dL (13.0-18.0); Mean Corp Hgb Conc. 29.3 g/dL (33.0-37.0); Mean Corpuscular Hgb 31.7 pg (27.0-31.0); Mean Corpuscular Volume 108.2 fL (80.0-94.0); Nucleated Red Blood Cells % 0 % (-); Red Blood Cell Count 3.19 10^6/uL (4.70-6.10); White Blood Cell Count 11.2 10^3/uL (4.8-10.8)
[2024-07-19 08:41] VITALS: BP 107/74
[2024-07-19 08:47] LABS: Mean Platelet Volume 10.2 fL (7.4-10.4); Platelet Count 291 10^3/uL (130-400)
[2024-07-19] MEDS: KEPPRA 750 MG TUBE (09:59)
[2024-07-19] MEDS: FERROUS SULFATE ORAL LIQUID 300 MG TUBE (10:00)
[2024-07-19] MEDS: DEPAKENE 125 MG TUBE (10:00)
[2024-07-19] MEDS: LOPRESSOR 25 MG TUBE (10:01)
[2024-07-19] MEDS: VITAMIN B1 100 MG TUBE (10:01)
[2024-07-19] MEDS: PACERONE 200 MG TUBE (10:01)
[2024-07-19] MEDS: VITAMIN C 500 MG TUBE (10:02)
[2024-07-19] MEDS: DESENEX/MITRAZOL/ZEASORB 1 APPLIC TOPICAL (10:03)
[2024-07-19] MEDS: ANTIFUNGAL CLEAR 1 APPLIC TOPICAL (10:04)
--- NOTE | 2024-07-19 14:30 | CM ---
Chart reviewed and plan is for patient to return to home today, patient to return to home with tube feeds from [facility] and visiting nurses from [facility]. community case manager spoke with Janie, from [facility] and she will alert [facility]
Home care that patient is being discharged today, spouse is aware and agreeable to plan, patient has a 5:30pm curing pickling packer by ambulance. IMM discussed by phone with spouse, copy provided.
[facility]
[phone]

[facility] for tube feeds

Plan; Home today by ambulance 5:30pm curing pickling packer.
--- NOTE | 2024-07-19 15:07 | W.PN.HOSP.TC ---
Today's Communication/Plan
-
dc
Assessment / Plan
Assessment / Plan
Interim history: Ruben is a 58-year-old male with PMH of anoxic brain injury, nonverbal, functional quadriplegia who presented to ED on 07/06 for concerns of left second toe infection. On presentation, x-ray was suspicious for osteomyelitis.
However, due to patient's contractures and inability to tolerate an MRI decision was made to proceed with partial left second toe amputation by podiatry. Patient's was in agreement. Patient's surgery was done on 07/09 and patient tolerated.
Patient is currently in the hospital waiting for pathology reports to ensure surgical cure before discharge to home. His antibiotics was narrowed to cefepime, however due to new Pseudomonas infection on urine culture and Enterococcus on 2 culture
patient was switched to Zosyn awaiting final sensitivities.

-----
Assessment/plan:
#Left second toe ulcer with exposed bone-Suspicious for osteomyelitis
-POD #7, s/p left second toe partial amputation with primary closure.
-Toe culture positive for VRE prior to amputation
-Surgical pathology reports reviewed - podiatry input noted -wound looks clean and they think all infected tissues are resected and ok for holding abx.
-ID input noted - recommend holding abx based on podiatry assessment
-Followed CBC post discontinuation of antibiotics-improving.
- Patient white count has been fluctuating in the past as well. Hold further abx.
- Pt remains afebrile.
-Continue tube feeds.
-Continue wound care.
-Monitor CBC.
#Chronic macrocytic anemia
-Hb stable
-Suspect anemia of chronic disease with superimposed folate deficiency.
-Continue folic acid supplementation.
-Follow CBC.
#Acute hypovolemic hypernatremia
-Continue flushes at 30 mL/h.
-Resolved
#Superficial stable ulcerations of right lateral fifth and great toes.
-No drainage no erythema.
-Continue wound care.
#Sepsis
-Suspect source include multiple stage IV pressure injuries in the sacrum and right hip, toe wound/ulcer, Pseudomonas UTI less likely.
-History of ESBL E. coli UTI; contact precautions.
-Blood culture negative, urine culture positive for Pseudomonas sensitive to Zosyn.
-Follow fever curve-none; off of abx.
#Multiple stage IV pressure injuries (POA)
-Multiple pressure injuries noted on sacrum, right hip, right lema, right elbow.
-Wound care.
-Continue antibiotics and follow temperature curve.
#Chronic iron deficiency anemia�anemia of chronic disease
-Hb stable; No evidence of active bleeding.
-Continue iron supplementation.
-HH stable
#Paroxysmal A-fib
-Rate controlled on metoprolol. Patient also on amiodarone.
-Not on anticoagulation NURSING HOME PHYSICIAN.
#History of anoxic brain injury�from multiple strokes.
-Quadriplegic s/p trach and GJ tube.
#Suspected severe protein malnutrition with hypoalbuminemia
-Tube feeds.
-Titrate team appreciated
#History of seizures
-Continue valproic acid and Keppra.
DVT PPx: Lovenox
CODE STATUS-DNR
Medically stable for DC home today
DW CM to help to set up VN
Spoke with about the dc plan.
Total time of dc 35 min
Anticipated Discharge: Today
Subjective/Interval History
-
Date of Service: July 19, 2024
No overnight events.
Discussed with RN-tolerating tube feeds. Remains on same FiO2 through trach collar.
Objective Data
-
Labs:
Laboratory Results
07/19/24
05:31
WBC 11.2 H
Hgb 10.1 L
Hct 34.5 L
Plt Count 291
Vital Signs:
Vital Signs
Temp Pulse Resp BP Pulse Ox
98.9 F 99 16 107/74 98
07/19/24 08:41 07/19/24 08:41 07/19/24 08:41 07/19/24 08:41 07/19/24 08:41
I&O
07/18/24 07/19/24 07/20/24
06:59 06:59 06:59
Intake Total 1180 / 1180 1080 / 1080
Output Total 1400 / 1400 675 / 675 600 / 600
Balance -220 / -220 405 / 405 -600 / -600
Review of Systems
-
Unable to obtain full review of systems at this time due to: Patient Non-verbal
Physical Exam
-
General: Comfortable
Respiratory: Non Labored Respirations; Negative Accessory Resp Muscle Use
Cardiac: Regular Rhythm and S1/S2; Negative Tachycardic
GI: Soft and Peg Tube
Neuro: Awake and Alert
Psych: Calm; Negative Agitated
Data Reviewed
-
Labs: Labs Reviewed by
--- NOTE | 2024-07-19 15:16 | W.DCSUMMARY ---
Discharge Summary
Discharge Data
Date of Admission: 07/06/24
Date of Discharge: 07/19/24
-
Pending Results: No
Hospital Course
Primary diagnosis:
Left second toe ulcer with exposed bone-Suspicious for osteomyelitis
s/p left second toe partial amputation with primary closure.
Secondary diagnosis:
Chronic macrocytic anemia
Superficial stable ulcerations of right lateral fifth and great toes
Multiple stage IV pressure injuries
Paroxysmal atrial fibrillation
History of cardiac arrest and anoxic brain injury
Hospital course:
Patient with a history of anoxic brain injury , functional quadriplegia, and immobility with multiple pressure ulcers presented with left second toe wound. There was a deep ulceration with exposed bone in the left second toe PIP joint. There is
local erythema edema of the left second toe. X-rays did raise the concern for possible osteomyelitis of the distal phalanx with a bony erosion. White count was up. The clinical concern was left foot cellulitis with left second toe osteomyelitis
at the PIP joint. Was seen by ID and rag willow operator. Went on to have a left 2nd toe partial toe amputation. Was treated with Zosyn for 13day and after bone pathology podiatry felt they got all infection and antibiotics were stopped and discharged back
home.
No changes were made to his medication regimen on DC
Consultants on board:
Podiatry - Logan Bill
ID Mya Clay
Discharge Plan
-
Patient Disposition: Home with Home Care
Discharge Diagnosis/Procedures: # Osteomyelitis of the left second toe dorsal aspect S/P resection of second toe
# Multiple pressure injury present on right hip, left iliac area, right iliac, right lateral elbow, right medial lower leg, right lateral foot
# Stage IV sacral pressure injury
# History of complicated COVID-19 infection
#History of stroke with multiorgan failure
# Anoxic brain damage
# Paroxysmal atrial fibrillation
# Seizures
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
# Hyperlipidemia
# History of ESBL UTI
# Chronic dysphagia
# Chronic anemia
# Bifascicular block
# Hypoalbuminemia
Condition: Serious
Diet: Tube feeding
Additional Diets: Resume enteral feeds at home as ordered prior to hospital admission
Activity: As tolerated
Driving Restrictions: No driving
Bathing Restrictions: None
Other Services: VN
Activity Restrictions/Additional Instructions:
Wound Care Instructions
Spine, L medial lower leg and R medial elbow- clean with soap and water, silicone foam change q 3 days and prn soilage
R lateral elbow, R lateral foot: clean with saline, Santyl, adaptic and dry dressing daily
R hip, R medial leg, sacrum and b/l Iliac crests: Clean with saline, skin prep periwound, Santyl to slough followed by Dakin's moistened gauze and dry dressing. Change daily and prn drainage.
L elbow and heels: skin prep and adhesive foams change q 3 days and prn soilage.
Left 2nd amputated toe- Clean and apply adaptic and dry dressing daily
Antifungal ointment to back and behind ears
Miconazole powder to buttocks/groin
Air mattress with turning schedule
Padding btw knees and heels
Referrals:
UNKNOWN - PT NOT,INTERVIEWE [Family Provider] -
Prescriptions:
Continued
atorvastatin 40 MG tablet
40 mg feeding tube HS
acetaminophen 325 MG tablet
650 mg feeding tube Q4HPRN PRN (Reason: mild pain, temp>100.4)
albuterol sulfate 2.5 MG/3 ML solution for nebulization
2.5 mg inhalation R [id number] PRN (Reason: sob)
amiodarone [Pacerone] 200 MG tablet
200 mg feeding tube DAILY
ascorbic acid (vitamin C) [Vitamin C] 500 mg Tablet
500 mg feeding tube DAILY
valproic acid (as sodium salt) 250 mg/5 mL Solution
125 mg feeding tube BID
ferrous sulfate 300 mg (60 mg iron)/5 mL Liquid
300 mg feeding tube BID
levetiracetam [Keppra] 100 mg/mL Solution
750 mg feeding tube BID
ProSource 7.5 gram Packet
1 packet PO DAILY
Jose (with collagen) 7-7-1.5 gram Powder In Packet
1 packet PO DAILY
Santyl 250 unit/gram Ointment
1 applic TOPICAL DAILY
H-Chlor 12 0.125 % solution
1 applic topical DAILY
metoprolol tartrate 25 mg Tablet
25 mg feeding tube Q12 30 Days Qty: 60 0RF
Discharge Orders:
Discharge Patient (As Directed); Ordered 07/19/24
Ordered By: Keshav Delatorre
Discharge Date and Time
Print Language: GEORGIAN
[2024-07-19 17:28] VITALS: BP 120/78
== END 2024-07-19 18:47 | disposition home health service (06) | DRG 853 ==
LOC: 4 WEST ACU 16:35
PROVIDERS: Student in an Organized Health Care Education/Training Program; ADMITTING PHYSICIAN Hospitalist; ATTENDING PHYSICIAN Internal Medicine; CONSULT PHYSICIAN Podiatrist Foot & Ankle Surgery; EMERGENCY PHYSICIAN Emergency Medicine; OTHER PHYSICIAN Internal Medicine Infectious Disease
PROC: 0Y6S0Z1 Detachment at Left 2nd Toe, High, Open Approach (ICD-10-PCS; 2024-07-09)
DX: A41.9 Sepsis, unspecified organism (principal); E43 Unspecified severe protein-calorie malnutrition; L89.154 Pressure ulcer of sacral region, stage 4; L89.214 Pressure ulcer of right hip, stage 4; L89.894 Pressure ulcer of other site, stage 4; L89.014 Pressure ulcer of right elbow, stage 4; R53.2 Functional quadriplegia; Z66 Do not resuscitate; G93.1 Anoxic brain damage, not elsewhere classified; M86.172 Other acute osteomyelitis, left ankle and foot; J96.11 Chronic respiratory failure with hypoxia; Z68.1 Body mass index [BMI] 19.9 or less, adult; R64 Cachexia; I45.2 Bifascicular block; L03.116 Cellulitis of left lower limb; N39.0 Urinary tract infection, site not specified; E87.0 Hyperosmolality and hypernatremia; Z86.16 Personal history of COVID-19; Z74.01 Bed confinement status; Z93.4 Other artificial openings of gastrointestinal tract status; I48.0 Paroxysmal atrial fibrillation; G40.909 Epilepsy, unspecified, not intractable, without status epilepticus; E78.00 Pure hypercholesterolemia, unspecified; D53.9 Nutritional anemia, unspecified; Z79.899 Other long term (current) drug therapy; I69.365 Other paralytic syndrome following cerebral infarction, bilateral; D50.9 Iron deficiency anemia, unspecified; K21.00 Gastro-esophageal reflux disease with esophagitis, without bleeding; K22.2 Esophageal obstruction; B95.2 Enterococcus as the cause of diseases classified elsewhere; L97.519 Non-pressure chronic ulcer of other part of right foot with unspecified severity; Z86.74 Personal history of sudden cardiac arrest
CPT/HCPCS: 88305; 88311; 73620; 73660; 80048; 80053; 81003; 81015; 82607; 83036; 83605; 83735; 84100; 85025; 85027; 87040; 87070; 87075; 87077; 87086; 87147; 87186; 87205; 93005; 93306; 99285

== ENCOUNTER 2024-07-27 11:01 | Emergency (ER) | payer MEDICARE, OTHER, SELFPAY ==
--- NOTE | 2024-07-27 11:04 | ED.GENMED ---
History of Present Illness
General
Chief Complaint: Failure to Thrive
Time Seen by Provider: 07/27/24 11:04
History of Present Illness
History of Present Illness:
TIME OF INITIAL ENCOUNTER: 11 AM
HPI: I spoke to EMS for history. The patient had a breakthrough seizure this morning around 8 AM. A visiting nurse was there more recently and noted abnormal vital signs with hypoxia. The patient is nonverbal and with flexion contractures at
bedside.
EXAM:
GENERAL: The patient is chronically ill in appearance
HEENT: Leftward gaze preference again noted, trach stoma noted with some mucus
CARDIOVASCULAR: No murmurs, normal heart rate, regular rhythm, No chest wall tenderness
PULMONARY: No respiratory distress, breath sounds are clear and equal
ABDOMEN: Soft with no peritoneal signs, no tenderness
NEUROLOGIC: Flexion contractures to all extremities, he does not follow any commands, his eyes are open
PSYCHIATRIC: Nonverbal, he does not participate with examination
EXTREMITIES: Flexion contracture noted, absent movement to the extremities
SKIN: Pressure sores noted but no clear sign of cellulitic changes
NUMBER AND COMPLEXITY OF PROBLEMS ADDRESSED AT THE ENCOUNTER
� Chronic conditions affecting care: Anoxic brain injury after cardiac arrest related to COVID in 2021, high blood pressure, A-fib
� Acute Exacerbation and/or Progression of Chronic Illness: This is an acute problem
� Differential Diagnosis includes: Viral syndrome, pneumonia, UTI, breakthrough seizure, sepsis unlikely given normal lactic acid and normal heart rate
AMOUNT AND/OR COMPLEXITY OF DATA TO BE REVIEWED AND ANALYZED
� I performed an independent evaluation of and my interpretation is:
EKG:
CT:
X-rays: Chest x-ray shows no clear sign of pneumonia
Laboratory Studies: White count 12.8, hemoglobin 10.8, BUN 27 creatinine 1.0, lactic acid 1.6, urinalysis does not show any clear sign of infection
Other:
� Review of other/old records: The patient was admitted here earlier this month. At that time he had left second toe partial amputation; he had been on vancomycin and Zosyn. Wound cultures last admission showed Pseudomonas and
bone culture with VRE.
� Clinical information was obtained by an independent historian: I spoke to the over the phone. The states that he did have temperatures as high as 101 recently. He did have some seizure-like activity earlier in the
day but this is not uncommon for him.
� Prescriptions/Medications Considered but not given:
� Further testing considered but not performed:
RISK OF COMPLICATIONS AND/OR MORBIDITY OR MORTALITY OF PATIENT MANAGEMENT
� Social determinants of health affecting care: Lives at home
� Discussion with other providers: None needed
� Escalation of care including admission/observation vs risk of discharge considered: The patient is chronically ill in appearance. However vital signs are relatively unremarkable with exception of a low-grade temperature at
38.1 Celsius rectally. He was given a dose of rectal Tylenol. No clear sign of UTI or pneumonia. Extensive decubital I noted but no clear sign of soft tissue/bone infection. I discussed case with over the phone. We agreed to discharge
patient. She is to have him brought here if he is condition worsens.
ANY OTHER UPDATES:
1:15 PM: Patient's condition remains the same throughout his stay in the emergency department. No clear indication for admission to the hospital. No clear indication for antibiotics at this time. Possible viral syndrome.
Past History
Past History
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
ED Past Surgical History: Appendectomy and Orthopedic
Social History
Tobacco: Non-smoker
Alcohol: Occasional
Drug: None
Personal:
Living: halfway
Employment: Disabled
Family History
Family History: Other ( sick)
Phy Exam
Physical Exam
Physical Exam:
See HPI
Course
Orders/Labs/Results
Orders:
Orders
12/23/24 11:15
Acetaminophen [Tylenol/Feverall] 650 mg RECTAL NOW STA
07/27/24 11:16
Acetaminophen [Tylenol/Feverall] 650 mg .ROUTE .STK-MED ONE
07/27/24 11:29
Complete Blood Count/With Diff Urgent
Comprehensive Metabolic Panel Urgent
Lactic Acid Q4H
Comment: CANCEL 2nd LACTIC ACID IF 1st LACTIC ACID IS LESS THAN 2
Blood Culture Q30M
JOHANA Source: Blood/Venous
Specimen Description:
Blood Culture Q30M
JOHANA Source: Blood/Venous
Specimen Description:
07/27/24 12:00
CR Chest Portable - 1 View Urgent
Comment:
Reason For Exam: hypoxia
Reason Study Needs to be Portable: Patient Unstable
07/27/24 12:24
Urinalysis Reflex To Culture Urgent
Date Specimen was Collected: 07/27/24
Time Specimen was Collected: 12:04
Urine Microscopic Reflex Cult Urgent
Urine Culture Urgent
JOHANA Source: U
Specimen Description:
Date Specimen was Collected: 07/27/24
Time Specimen was Collected: 12:04
Abnormal Lab Results
07/27/24 07/27/24
11:29 12:24
WBC 12.8 H 10^3/uL
(4.8-10.8)
RBC 3.31 L 10^6/uL
(4.70-6.10)
Hgb 10.8 L g/dL
(13.0-18.0)
Hct 33.3 L %
(39.0-52.0)
MCV 100.6 H fL
(80.0-94.0)
MCH 32.6 H pg
(27.0-31.0)
MCHC 32.4 L g/dL
(33.0-37.0)
RDW 16.5 H %
(11.5-14.5)
Abs Immat Gran (auto) 0.1 H 10^3/uL
(0-0.05)
Absolute Neuts (auto) 8.7 H 10^3/uL
(1.4-6.5)
Absolute Monos (auto) 1.8 H 10^3/uL
(0.1-0.6)
Lymphocytes % 13.6 L %
(20.5-51.1)
Monocytes % 13.8 H %
(1.7-9.3)
Sodium 132 L mmol/L
(135-145)
BUN 27 H mg/dl
(9-20)
Alkaline Phosphatase 130 H U/L
(38-126)
Albumin 3.2 L g/dl
(3.5-5.0)
Ur Occult Blood Reflex Trace A
(Negative)
Urine Bacteria (Reflex) Moderate A
(Negative)
07/27/24 11:29
07/27/24 11:29
Vital Signs
Initial and Last Documented VS:
Initial Vital Signs
Temp Pulse Resp BP Pulse Ox
38.1 C H 86 20 112/81 99
07/27/24 11:26 07/27/24 11:26 07/27/24 11:26 07/27/24 11:26 07/27/24 11:26
Last Documented Vital Signs
Temp Pulse Resp BP Pulse Ox
38.1 C H 80 26 119/62 99
07/27/24 11:26 07/27/24 13:30 07/27/24 13:30 07/27/24 13:00 07/27/24 11:26
*Critical Care Note
Total Time (30-74mins, 75-104mins- exclusive of procedures): Not Applicable
ED Attending Note
-
Portions of this chart may have been created with voice recognition software.� Occasional wrong word or��sound alike� substitutions may have occurred due to the inherent limitations of voice recognition software.
Discharge Plan
Departure
Patient Disposition: Home (Routine Discharge)
Date of Disposition: 07/27/24
Time of Disposition: 12:55
Patient with high blood pressure during this ER visit?: No
Discharge Problem:
Fever
Prescriptions:
No Action
atorvastatin 40 MG tablet
40 mg feeding tube HS
acetaminophen 325 MG tablet
650 mg feeding tube Q4HPRN PRN (Reason: mild pain, temp>100.4)
albuterol sulfate 2.5 MG/3 ML solution for nebulization
2.5 mg inhalation R [id number] PRN (Reason: sob)
amiodarone [Pacerone] 200 MG tablet
200 mg feeding tube DAILY
ascorbic acid (vitamin C) [Vitamin C] 500 mg Tablet
500 mg feeding tube DAILY
valproic acid (as sodium salt) 250 mg/5 mL Solution
125 mg feeding tube BID
ferrous sulfate 300 mg (60 mg iron)/5 mL Liquid
300 mg feeding tube BID
levetiracetam [Keppra] 100 mg/mL Solution
750 mg feeding tube BID
ProSource 7.5 gram Packet
1 packet PO DAILY
Jose (with collagen) 7-7-1.5 gram Powder In Packet
1 packet PO DAILY
Santyl 250 unit/gram Ointment
1 applic TOPICAL DAILY
H-Chlor 12 0.125 % solution
1 applic topical DAILY
metoprolol tartrate 25 mg Tablet
25 mg feeding tube Q12 30 Days Qty: 60 0RF
Referrals:
NONE,* [Family Provider] -
Activity Restrictions/Additional Instructions:
Borderline fever here. White blood cell count is minimally elevated�similar to prior. Lactic acid is normal. Remainder of his blood work is unremarkable and there is no sign of UTI or pneumonia. Blood cultures are pending. Return here if worse
or other concerns. He did receive a one-time dose of rectal Tylenol.
Interventions
Interventions:
*Risk Screen - Suicide Last Done: 07/27/24 11:55
*General Assessment Last Done: 07/27/24 11:55
*Neglect/Abuse Screening Last Done: 07/27/24 11:55
ED- Fall Risk Assessment Last Done: 07/27/24 11:55
*ED COVID-19 Vaccine History Last Done: 07/27/24 11:55
Discharge Date and Time
Print Language: CHINESE
[2024-07-27 11:26] VITALS: BP 112/81
[2024-07-27] MEDS: TYLENOL/FEVERALL 650 MG RECTAL (11:27)
[2024-07-27 11:41] LABS: % Basophils 0.2 % (0-2); % Immature Granulocytes 0.5 % (0-0.5); % Lymphocytes 13.6 % (20.5-51.1); % Monocytes 13.8 % (1.7-9.3); % Neutrophils 67.9 % (42.2-75.2); Absolute Eosinophils 0.5 10^3/uL (0-0.7); Absolute Immature Granulocytes 0.1 10^3/uL (0-0.05); Absolute Lymphocytes 1.7 10^3/uL (1.2-3.4); Absolute Monocytes 1.8 10^3/uL (0.1-0.6); Absolute Neutrophils 8.7 10^3/uL (1.4-6.5); Hematocrit 33.3 % (39.0-52.0); Hemoglobin 10.8 g/dL (13.0-18.0); Mean Corp Hgb Conc. 32.4 g/dL (33.0-37.0); Mean Corpuscular Hgb 32.6 pg (27.0-31.0); Mean Corpuscular Volume 100.6 fL (80.0-94.0); Mean Platelet Volume 9.4 fL (7.4-10.4); Nucleated Red Blood Cells % 0 % (-); Platelet Count 291 10^3/uL (130-400); Red Blood Cell Count 3.31 10^6/uL (4.70-6.10); Red Cell Dist. Width 16.5 % (11.5-14.5); White Blood Cell Count 12.8 10^3/uL (4.8-10.8)
[2024-07-27 11:57] LABS: Lactic Acid 1.6 mmol/L (0.7-2.0)
[2024-07-27 11:59] LABS: ALT (SGPT) 19 U/L (0-50); AST (SGOT) 21 U/L (17-59); Albumin 3.2 g/dl (3.5-5.0); Alkaline Phosphatase 130 U/L (38-126); Blood Urea Nitrogen 27 mg/dl (9-20); Calcium 9.7 mg/dl (8.4-10.2); Carbon Dioxide 27 mmol/L (22-30); Chloride 98 mmol/L (98-107); Glucose 87 mg/dl (70-99); Sodium 132 mmol/L (135-145); Total Bilirubin 0.4 mg/dl (0.2-1.3); Total Protein 7.1 g/dl (6.3-8.2); eGFR > 60.00
[2024-07-27 12:00] VITALS: BP 109/78
[2024-07-27 12:38] LABS: Urine Albumin Trace (Neg - Trace); Urine Bilirubin Negative (Negative); Urine Character Slightly Cloudy (Clear); Urine Color Yellow; Urine Glucose Negative (Negative); Urine Ketone Negative (Negative); Urine Leukocyte Negative (Negative); Urine Nitrite Negative (Negative); Urine Occult Blood Trace (Negative); Urine Specific Gravity 1.015 (<1.030); Urine Urobilinogen Negative (Neg - 1+)
[2024-07-27 12:58] LABS: Urine Bacteria Moderate (Negative); Urine Red Blood Cell 0-2 /HPF (0-2); Urine Triple Phosphate Crystal Present; Urine White Cell 0-2 /HPF (0-5)
[2024-07-27 13:00] VITALS: BP 119/62
[2024-07-27 14:00] VITALS: BP 104/68
== END 2024-07-27 15:58 | disposition home or self-care (01) ==
LOC: EMR 11:01
PROVIDERS: EMERGENCY PHYSICIAN Emergency Medicine
DX: R50.9 Fever, unspecified (principal); G40.909 Epilepsy, unspecified, not intractable, without status epilepticus; G93.1 Anoxic brain damage, not elsewhere classified; K21.9 Gastro-esophageal reflux disease without esophagitis; Z86.16 Personal history of COVID-19; Z86.74 Personal history of sudden cardiac arrest; Z86.73 Personal history of transient ischemic attack (TIA), and cerebral infarction without residual deficits
CPT/HCPCS: 99283; 71045; 80053; 81003; 81015; 83605; 85025; 87040; 87086

== ENCOUNTER 2024-07-28 19:52 | Inpatient (IN) | payer MEDICARE, OTHER, SELFPAY ==
--- NOTE | 2024-07-28 16:25 | ED.GENMED ---
History of Present Illness
General
Chief Complaint: Skin Problem
Time Seen by Provider: 07/28/24 16:15
History of Present Illness
History of Present Illness:
TIME OF INITIAL ENCOUNTER: 4:20 PM
HPI: I saw this patient yesterday. The patient has a history of anoxic brain injury related COVID from a few years ago. Yesterday, he had a breakthrough seizure and did have an episode of hypoxia. The patient is nonverbal. Late entry: I did
finally get a hold of the who tells me that the visiting nurse was very concerned about tachycardia, ongoing fevers, and was most concerned about the appearance of the right elbow�this is new.
EXAM:
GENERAL: The patient is chronically ill in appearance
HEENT: Leftward gaze preference again noted, trach stoma noted with increased mucus
CARDIOVASCULAR: No murmurs, normal heart rate, regular rhythm, No chest wall tenderness
PULMONARY: No respiratory distress, breath sounds are clear and equal
ABDOMEN: Soft with no peritoneal signs, no tenderness
NEUROLOGIC: Flexion contractures to all extremities, he does not follow any commands, his eyes are open
PSYCHIATRIC: Nonverbal, he does not participate with examination
EXTREMITIES: Flexion contracture noted, absent movement to the extremities, increased edema and cellulitic changes noted to the right elbow
SKIN: 3 lumbar/sacral decubiti, there is no foul odor however there is erythema noted that extends towards the anal region more so, granulation versus necrotic tissue noted at the right second toe
NUMBER AND COMPLEXITY OF PROBLEMS ADDRESSED AT THE ENCOUNTER
� Chronic conditions affecting care: Anoxic brain injury after cardiac arrest related to COVID in 2021, high blood pressure, A-fib
� Acute Exacerbation and/or Progression of Chronic Illness: This is an acute problem
� Differential Diagnosis includes: Viral syndrome, cellulitis, wound infection
AMOUNT AND/OR COMPLEXITY OF DATA TO BE REVIEWED AND ANALYZED
� I performed an independent evaluation of and my interpretation is:
EKG:
CT: CT imaging shows no concerning soft tissue finding, decubital air again noted. No evidence for abscesses.
X-rays:
Laboratory Studies: White count 17.0, hemoglobin 9.8, BUN 27, creatinine 1.1, albumin 3.0
Other:
� Review of other/old records: I reviewed the urine culture and blood cultures from yesterday which were negative; old records show that he has grown VRE as well as Pseudomonas in wound culture in the past
� Clinical information was obtained by an independent historian: EMS
� Prescriptions/Medications Considered but not given:
� Further testing considered but not performed:
RISK OF COMPLICATIONS AND/OR MORBIDITY OR MORTALITY OF PATIENT MANAGEMENT
� Social determinants of health affecting care: Lives at home
� Discussion with other providers: Hospitalist, Dr. Weinberg for admission at 7:10 PM
� Escalation of care including admission/observation vs risk of discharge considered: Today, the patient's white count is now worse. There is increasing concern at home for his overall clinical condition. Based on prior wound
cultures, I have ordered ampicillin for VRE and Zosyn for Pseudomonas. He has been tachycardic here and was given Tylenol and fluids in addition to the antibiotics.
ANY OTHER UPDATES:
Past History
Past History
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
ED Past Surgical History: Appendectomy and Orthopedic
Social History
Tobacco: Non-smoker
Alcohol: Occasional
Drug: None
Personal:
Living: longterm
Employment: Disabled
Family History
Family History: Other ( sick)
Phy Exam
Physical Exam
Physical Exam:
See HPI
Sepsis
Sepsis Screening
Sepsis Assessment: Sepsis
Sepsis Screen
Sepsis Screen: Sepsis
Date: 07/28/24
Time: 22:11
Course
Orders/Labs/Results
Orders:
Orders
07/28/24 16:21
Acetaminophen [Tylenol/Feverall] 650 mg .ROUTE .STK-MED ONE
07/28/24 16:23
CT Abd/pelvis W Iv Cont Urgent
Comment:
Reason For Exam: sacral/lumbar decub; eval for infection
07/28/24 16:46
Wound Culture [Wound/Abscess/Other Culture] Urgent
JOHANA Source: Decubitis Ulcer
Specimen Description:
Date Specimen was Collected: 07/28/24
Time Specimen was Collected: 16:46
07/28/24 17:07
Complete Blood Count/With Diff Urgent
Comprehensive Metabolic Panel Urgent
Blood Culture Q30M
JOHANA Source: Blood/Venous
Specimen Description:
Blood Culture Q30M
JOHANA Source: Blood/Venous
Specimen Description:
07/28/24 17:16
Acetaminophen [Tylenol/Feverall] 650 mg RECTAL NOW STA
07/28/24 18:59
Piperacillin/Tazo 3.375 Gram [Zosyn] 3.375 gram in 50 ml IV NOW
07/28/24 19:05
Lactic Acid Urgent
07/28/24 19:31
Admit/Transfer Patient As Directed
Co-Sign Provider:
Level of Care: Inpatient admission
Assign to:: Telemetry
Physician / Group: Sultana
Diagnosis: Sepsis
Reason for Telemetry: Arrhythmia
Date to Stop Telemetry: 07/31/24
Time to Stop Telemetry: 11:00
Reason for Hospitalization: IV abx
Expected length of stay greater than two midnights?: Yes
ELOS- Estimated Length of Stay in days: 3
I certify the patient meets the requirements for IP care: Yes
07/28/24 19:32
PRN Pain Medication Management As Directed
May give lesser potent ordered pain med per pt: Yes
preference::
Protocol:: Medication orders for pain may be administered in a
manner that supports deferring to patient preference
when the pt is:
- Requesting an ordered lesser potent pain medication.
Least to most potent pain medications are defined
as: acetaminophen < NSAID < tramadol < opioids
(morphine, oxycodone, hydromorphone).
- Requesting a lesser dose of the same medication IF
ORDERED.
- Requesting a less intrusive route of administration
if both routes are prescribed by the provider (PO <
IV).
07/28/24 19:33
Ampicillin 1,000 mg 0.9% Sodium Chloride 100 ml [Nss] 100 ml IV NOW
07/28/24 19:35
Code Status As Directed
Resuscitation Status: Do not resuscitate
Based on pt advanced directive or healthcare POA form: Yes
DNR Bracelet Application ONCE
07/28/24 19:36
COVID-19 Antigen Urgent
Source: Nasal Swab
Influenza A+B Rapid Molecular Urgent
JOHANA Source: Nasal Swab
Specimen Description:
07/28/24 20:56
Acetaminophen [Tylenol] 650 mg TUBE Q4HPRN PRN
Albuterol Nebs [Ventolin Nebules] 2.5 mg INH R Q4HPRN PRN
Metoprolol [Lopressor] 25 mg TUBE Q12
07/28/24 20:56
WOUND/OSTOMY CONSULT Routine
Reason for Consult: multiple stage IV pressure injuries
Activity As Directed
Activity Level: Bedrest
I&O [Intake/ Output] As Directed
Frequency: q12h
Vital Signs As Directed
Frequency: Per unit guidelines
Weight As Directed
Frequency: Daily
DX Deep Vein Thrombosis Video Routine
07/28/24 22:00
Levetiracetam [Keppra] 750 mg TUBE BID
Valproic Acid Syrup [Depakene] 125 mg TUBE BID
07/29/24 02:00
Piperacillin/Tazo 3.375 Gram [Zosyn] 3.375 gram in 50 ml IV Q6H
07/29/24 Breakfast
Tube Feeding
Tube Feeding Product: Jevity 1.5
Initial continuous pump rate (mL/hr): 60 ml/hr
Flush Continuous pump feedings with water (mL/hr): 30
Oral Supplement (If unsure of flavor order apple or vanilla): Prosource
Supplement Frequency: Daily
Basic Metabolic Panel IN AM
Complete Blood Count/No Diff IN AM
07/29/24 08:00
Amiodarone [Pacerone] 200 mg TUBE DAILY
Collagenase [Santyl Ointment] 1 applic TOPICAL DAILY
07/29/24 18:00
Enoxaparin Sodium [Lovenox] 40 mg SC QPM
07/31/24 11:00
DC Protocol for Telemetry ONCE
Abnormal Lab Results
07/28/24
17:07
WBC 17.0 H 10^3/uL
(4.8-10.8)
RBC 3.04 L 10^6/uL
(4.70-6.10)
Hgb 9.8 L g/dL
(13.0-18.0)
Hct 30.4 L %
(39.0-52.0)
MCV 100.0 H fL
(80.0-94.0)
MCH 32.2 H pg
(27.0-31.0)
MCHC 32.2 L g/dL
(33.0-37.0)
RDW 16.1 H %
(11.5-14.5)
Abs Immat Gran (auto) 0.1 H 10^3/uL
(0-0.05)
Absolute Neuts (auto) 13.0 H 10^3/uL
(1.4-6.5)
Absolute Monos (auto) 1.9 H 10^3/uL
(0.1-0.6)
Neutrophils % 76.0 H %
(42.2-75.2)
Lymphocytes % 10.3 L %
(20.5-51.1)
Monocytes % 11.2 H %
(1.7-9.3)
Sodium 131 L mmol/L
(135-145)
Chloride 96 L mmol/L
(98-107)
BUN 27 H mg/dl
(9-20)
Alkaline Phosphatase 131 H U/L
(38-126)
Albumin 3.0 L g/dl
(3.5-5.0)
07/28/24 17:07
07/28/24 17:07
Vital Signs
Initial and Last Documented VS:
Initial Vital Signs
Pulse Resp Pulse Ox
106 26 96
07/28/24 16:34 07/28/24 16:34 07/28/24 16:34
Last Documented Vital Signs
Temp Pulse Resp BP Pulse Ox
36.8 C 121 18 118/78 98
07/28/24 21:11 07/28/24 21:11 07/28/24 21:11 07/28/24 21:11 07/28/24 21:11
*Critical Care Note
Total Time (30-74mins, 75-104mins- exclusive of procedures): Not Applicable
ED Attending Note
-
Portions of this chart may have been created with voice recognition software.� Occasional wrong word or��sound alike� substitutions may have occurred due to the inherent limitations of voice recognition software.
Discharge Plan
Departure
Patient Disposition: Admit
Presentation/result/management discussed w/ accepting MD/DO: Hospitalist
Discharge Problem:
Sepsis due to cellulitis
Interventions
Interventions:
*Risk Screen - Suicide Last Done: 07/28/24 16:38
*General Assessment Last Done: 07/28/24 16:38
*Neglect/Abuse Screening Last Done: 07/28/24 16:38
ED- Fall Risk Assessment Last Done: 07/28/24 17:57
*ED COVID-19 Vaccine History Last Done: 07/28/24 20:39
*Nursing Disposition Last Done: 07/28/24 20:39
ED-Skin Assessment Last Done: 07/28/24 20:36
Discharge Date and Time
Discharge Date/Time: 07/28/24 20:41
[2024-07-28 16:38] VITALS: BP 99/85
[2024-07-28 17:13] VITALS: BP 105/68
[2024-07-28] MEDS: TYLENOL/FEVERALL 650 MG RECTAL (17:16)
[2024-07-28 17:30] LABS: % Basophils 0.4 % (0-2); % Eosinophils 1.7 % (0-6); % Immature Granulocytes 0.4 % (0-0.5); % Lymphocytes 10.3 % (20.5-51.1); % Monocytes 11.2 % (1.7-9.3); Absolute Basophils 0.1 10^3/uL (0-0.2); Absolute Eosinophils 0.3 10^3/uL (0-0.7); Absolute Immature Granulocytes 0.1 10^3/uL (0-0.05); Absolute Lymphocytes 1.8 10^3/uL (1.2-3.4); Absolute Monocytes 1.9 10^3/uL (0.1-0.6); Hematocrit 30.4 % (39.0-52.0); Hemoglobin 9.8 g/dL (13.0-18.0); Mean Corp Hgb Conc. 32.2 g/dL (33.0-37.0); Mean Corpuscular Hgb 32.2 pg (27.0-31.0); Mean Platelet Volume 9.5 fL (7.4-10.4); Nucleated Red Blood Cells % 0 % (-); Platelet Count 304 10^3/uL (130-400); Red Blood Cell Count 3.04 10^6/uL (4.70-6.10); Red Cell Dist. Width 16.1 % (11.5-14.5)
[2024-07-28 17:39] LABS: ALT (SGPT) 18 U/L (0-50); AST (SGOT) 19 U/L (17-59); Alkaline Phosphatase 131 U/L (38-126); Blood Urea Nitrogen 27 mg/dl (9-20); Calcium 9.8 mg/dl (8.4-10.2); Carbon Dioxide 28 mmol/L (22-30); Chloride 96 mmol/L (98-107); Glucose 87 mg/dl (70-99); Sodium 131 mmol/L (135-145); Total Bilirubin 0.4 mg/dl (0.2-1.3); Total Protein 6.6 g/dl (6.3-8.2); eGFR > 60.00
[2024-07-28 18:00] VITALS: BP 108/73
[2024-07-28 19:00] VITALS: BP 108/78
--- NOTE | 2024-07-28 19:17 | HPS.HSE ---
Family Physician
-
Family Physician: NO INTERVIEW UNKNOWN
Chief Complaint
-
Fever
History of Present Illness
Patient is a 58 y/o male past medical history of anoxic brain injury, multiple stage IV pressure injuries and paroxysmal atrial fibrillation who presents with persistent fevers. Patient was seen here at the [facility] emergency department
for fever and breakthrough fever. At that time urinalysis and chest x-ray were negative for infection, and WBC count was close to baseline thus he as discharged home. He returns today with persistent fevers. Patient is non-verbal and no family is
available to provide additional history.
Medical History
Past Medical History
Past Medical History: Reports Other
Additional Past Medical History:
Paroxysmal Atrial Fibrillation
Anoxic Brain Injury
Multiple Stage IV Pressure Injuries
Anemia of Chronic Disease and Iron Deficiency Anemia
Seizure Disorder
Esophagitis / Esophageal Ring
Past Surgical History: Reports Other
Additional Past Surgical History:
Appendectomy
Tonsillectomy
Social History
Unable to obtain full social history at this time due to: Patient Non-verbal
Living: With Family
Family History
Family History: Unable to Obtain
Allergies / Home Medications
Allergies reflects when Allergies were last updated in [employer].
Home Medications with original date entered in [employer]
Allergy/Medication List:
Allergies
Allergy/AdvReac Type Severity Reaction Status Date / Time
phenobarbital Allergy Unknown Verified 07/28/24 16:38
Medications on admission are unable to be verified or confirmed at this time.
Listed medications below reflect medications from his discharge on July 19, 2024
Home Medications
acetaminophen 325 mg tablet 650 mg feeding tube Q4HPRN PRN mild pain, temp>100.4 12/30/21
albuterol sulfate 2.5 mg/3 mL (0.083 %) solution for nebulization 2.5 mg inhalation R [id number] PRN sob 12/30/21
amiodarone 200 mg tablet (Pacerone) 200 mg feeding tube DAILY AFIB 12/30/21
atorvastatin 40 mg tablet 40 mg feeding tube HS High cholesterol 12/30/21
arginine 7 gram-glutam 7 gram-CaHMB 1.5 aqto-nagve-sk-min oral pwd pkt (Jose (with collagen)) 1 packet PO DAILY Supplement 06/12/24
ascorbic acid (vitamin C) 500 mg tablet (Vitamin C) 500 mg feeding tube DAILY Supplement 06/12/24
calcium caseinate-whey 7.5 gram oral packet (ProSource) 1 packet PO DAILY Supplement 06/12/24
ferrous sulfate 300 mg (60 mg iron)/5 mL oral liquid 300 mg feeding tube BID Supplement 06/12/24
levetiracetam 100 mg/mL oral solution (Keppra) 750 mg feeding tube BID Neurological Condition 06/12/24
valproic acid (as sodium salt) 250 mg/5 mL oral solution 125 mg feeding tube BID Neurological Condition 06/12/24
collagenase clostridium histo. 250 unit/gram topical ointment (Santyl) 1 applic topical DAILY Infection 07/06/24
sodium hypochlorite 0.125 % solution (H-Chlor 12) 1 applic topical DAILY Infection 07/06/24
metoprolol tartrate 25 mg tablet 25 mg feeding tube Q12 Blood pressure 30 days #60 tabs 07/10/24
If medication reconciliation has not been performed, why?: Medication List N/A
Review of Systems
-
Unable to obtain full review of systems at this time due to: Patient Non-verbal
Physical Exam
Vital Signs
Vital Signs
Temp Pulse Resp BP Pulse Ox
100.3 F 107 27 108/73 96
07/28/24 16:38 07/28/24 18:45 07/28/24 18:45 07/28/24 18:00 07/28/24 18:45
Physical Exam
General: Appears Chronically Ill and Cachectic
HEENT: Anicteric and Other (Mucous membranes are dry)
Respiratory: Non Labored Respirations and Other (Diffuse rhonchi)
Cardiac: S1/S2, Regular Rhythm and Tachycardia
GI: Soft, Non Tender and Peg Tube (Site appears clean)
Rectal: Deferred by Provider
Musculoskeletal: No Clubbing, No Cyanosis and Other (Extensive contractions of all four extremities)
Skin: Warm, Dry and Decubitus Ulcers (Per ED provider 3 lumbar/sacral ulcers with mild surrounding erythema, but no foul odor noted)
Neuro: Other (Eyes open, but unable to follow commands)
Laboratory Results
-
07/28/24 17:07
07/28/24 17:07
Laboratory Results
Total Bilirubin 0.4 mg/dl (0.2-1.3) 07/28/24 17:07
AST 19 U/L (17-59) 07/28/24 17:07
ALT 18 U/L (0-50) 07/28/24 17:07
Alkaline Phosphatase 131 U/L (38-126) H 07/28/24 17:07
Data Reviewed
-
Lab Data: Labs Reviewed by me
Old Records: Reviewed
Impression/Plan
-
Sepsis, possibly related to infected decubitus ulcer
-Reviewed prior culture data: wound culture with VRE, Urine culture with Psuedomonas, and Positive MRSA Screen
-Consult Infectious Disease
-Check COVID and Influenza
-Continue Vancomycin and Zosyn
Paroxysmal Atrial Fibrillation
-Continue metoprolol and amiodarone
Anoxic Brain Injury
-Patient is bedbound and tube feeding dependent
-Continue tube feeding as per dietary recommendations
Multiple Stage IV Pressure Injuries
-Consult Wound Care
Anemia of Chronic Disease and Iron Deficiency Anemia
-Overall Hgb stable compare to previous
Seizure Disorder
-Continue Keppra and Valproic Acid
DVT proph: Lovenox
Code Status: DNR
[2024-07-28 19:25] LABS: Lactic Acid 0.8 mmol/L (0.7-2.0)
--- NOTE | 2024-07-28 19:27 | W.PN.UPDATE ---
Update Note
Progress Note Update
Patient seen in conjunction with [facility]. Agree with findings on history and physical and assessment and plan.
Briefly is a 58-year-old male with past medical history significant for anoxic brain injury, nonambulatory with contractures status post trach and PEG presenting to the emergency department with persistent fevers and concern for sacral decubitus
wound drainage. Patient was recently admitted to the hospital in early July for left total infection, osteomyelitis and status post second left toe amputation and treatment with antibiotics for 13 days. Surgical cultures grew VRE. Patient was
discharged afebrile and generally in baseline state of health. He returns to the emergency department yesterday with a fever and breakthrough seizure. Infectious workup was negative. He was otherwise hemodynamically stable. He was discharged
home. Upon returning home patient continued to have fevers and drainage from the wound and was sent back to the ED. Patient unable to provide any additional history. actually reported that the patient was sent to the emergency department on
advice of her visiting nurse who reported that the patient appeared to have left elbow cellulitis likely secondary to chronic pressure ulcer.
On my evaluation today he was nonviable, has a open trach, status post PEG and quadriparesis. Left lower mutation looks intact without obvious cellulitis. Unable to visualize the sacral decubitus. There is left elbow decubitus ulcer appears deep
with surrounding erythema.
He was febrile 200.5, blood pressure 108/70 with a pulse of 107 respiratory was 27 and was satting 99%. White count was 17,000 hemoglobin was 9.8 with platelet of 304. Sodium 131 potassium 5.0 the rest of the electrolytes were normal
BUN/creatinine were within normal readings. UA was unremarkable from yesterday. Blood cultures from yesterday no growth to date. Chest Xray w/o acute findings from yesterday. CT of the abdomen pelvis shows no acute intra-abdominal findings. No
evidence of osteomyelitis that CT scan.
Patient presented febrile illness, leukocytosis and tachycardia. Unclear etiology at this time. Meets sepsis criteria.
1. Fever -Infectious etiology most likely with skin/wound source versus respiratory source. Left elbow concerning for deep infection/osteo
- admit to telemetry
- check influenza/covid
- blood cultures sent and pending, u/a negative
- left elbow xray pending, check esr for possible osteo
- given prior ESBL infection and VRE, as well as MRSA positive -> Vancomycin/Zosyn for now pending cultures
- wound consult
- ID consultation
2. Seizure d/o
- continue home AED keppra and valproic acid
3. TONYA B
- continue amiodarone
Dietary for tube feeding
DVT PPX - lovenox sq
Code status - DNR
[2024-07-28] MEDS: ZOSYN 50 IV (19:30)
[2024-07-28 19:59] LABS: COVID-19 Antigen Negative (Negative)
--- NOTE | 2024-07-28 20:15 | PTCARENOTE ---
Pt received from ED at 1999. Pt A&O to self, VSS, and pulled into bed from stretcher. Pt bed in lowest position and call reyes within reach. Will continue with current plan of care.
[2024-07-28] MEDS: AMPICILLIN 104 MG IV (20:16)
[2024-07-28 21:11] VITALS: BP 118/78
[2024-07-28 21:15] VITALS: BMI 19.7
--- NOTE | 2024-07-28 21:22 | PHA.VAN.IN ---
Assessment
- Assessment
Renal Function: Appears similar to baseline
Concomitant Antimicrobials: PIPERACILLIN/TAZOBACTAM
AUC Dosing Plan
- Dosing Variables
Dosing Weight (kg): 57
Dosing CrCl (ml/min): 58
Vd coefficient (L/kg): 0.7
- Empiric Dosing
Initial / Loading Dose: VANCO 1500MG X1
Maintenance Regimen: VANCO 1000MG Q24
Estimated AUC (mcg*h/mL): 490
Estimated Peak (mcg*h/mL): 35
Estimated Trough (mcg/ml): 10.4
Estimated Half Life (H): 13.2
- Monitoring
No levels ordered at this time: CONSIDER LEVEL PRIOR TO 4TH MAINTENANCE DOSE
Pharmacokinetics Vancomycin I
- -
Patient Age: 58
Patient Sex: Male
Vancomycin Day #: 1
Indication: SSTI
Requesting Provider: ADORE HERNANDEZ
Height / Weight:
Height 5 ft 9 in
Actual Weight 57.3 kg
Pertinent Past Medical History: SEIZURES, ANOXIC BRAIN INJURY, CHRONIC PRESSURE ULCERS
- Vital Signs / Lab Results
Temp Pulse Resp BP Pulse Ox
99.8 F 114 33 108/78 95
07/28/24 20:36 07/28/24 20:30 07/28/24 20:30 07/28/24 19:00 07/28/24 20:30
Lab Results - Hematology
07/28/24
17:07
WBC 17.0 H
Lab Results - Chemistry
07/28/24
17:07
BUN 27 H
Creatinine 1.1
Albumin 3.0 L
07/28/24
19:05
Lactic Acid 0.8
Microbiology Results
07/28/24 19:36 Influenza Types A & B (MAYELA) - Final
Nasal Swab Negative for Influenza A & B, NAAT
Negative results must be combined with clinical observations
and patient history.
Nucleic Acid Amplification test (NAAT)performed on the
[employer] platform.
07/28/24 16:46 Gram Stain - Preliminary
Decubitis Ulcer
[2024-07-28] MEDS: VANCOCIN 530 MG IV (22:40)
[2024-07-28] MEDS: LOPRESSOR 25 MG TUBE (22:44)
[2024-07-28] MEDS: KEPPRA 750 MG TUBE (22:45)
[2024-07-28] MEDS: DEPAKENE 125 MG TUBE (22:46)
[2024-07-28 23:30] VITALS: BP 108/76
[2024-07-29] MEDS: ZOSYN 50 IV ×4 (01:09→20:34)
[2024-07-29 03:27] VITALS: BP 113/75
[2024-07-29] MEDS: VANCOCIN 200 IV (05:05)
[2024-07-29 07:00] VITALS: BP 102/67
[2024-07-29] MEDS: KEPPRA 750 MG TUBE ×2 (09:00→20:36)
[2024-07-29] MEDS: DEPAKENE 125 MG TUBE ×2 (09:00→20:34)
[2024-07-29] MEDS: SANTYL OINTMENT 1 APPLIC TOPICAL (09:01)
[2024-07-29 09:02] LABS: Hematocrit 28.1 % (39.0-52.0); Hemoglobin 8.6 g/dL (13.0-18.0); Mean Corp Hgb Conc. 30.6 g/dL (33.0-37.0); Mean Corpuscular Volume 104.5 fL (80.0-94.0); Mean Platelet Volume 9.9 fL (7.4-10.4); Platelet Count 278 10^3/uL (130-400); Red Blood Cell Count 2.69 10^6/uL (4.70-6.10); White Blood Cell Count 13.7 10^3/uL (4.8-10.8)
[2024-07-29] MEDS: PACERONE 200 MG TUBE (09:02)
[2024-07-29] MEDS: LOPRESSOR TUBE ×2 (09:03→20:37)
[2024-07-29 09:27] LABS: Blood Urea Nitrogen 25 mg/dl (9-20); Calcium 9.4 mg/dl (8.4-10.2); Carbon Dioxide 28 mmol/L (22-30); Chloride 99 mmol/L (98-107); Estimated Creatinine Clearance 50 ml/min; Glucose 77 mg/dl (70-99); Potassium 4.3 mmol/L (3.5-5.1); Sodium 134 mmol/L (135-145); eGFR > 60.00
--- NOTE | 2024-07-29 09:32 | CM ---
Patient was admitted from home where he lives with his .
Chart reviewed:
Pt is bedbound and requires a kaylee for transfers.
He is total care and does not participate in any self care.
Patient is non-verbal and not able to make needs known.
Mostly unresponsive and rarely opens eyes.
Multiple wounds requiring wound care which spouse has been providing care.
Has trach stoma and remains on TF via GJ tube.
Patient has 25/02 care givers and is current with [facility] for PT/OT/SN/[employer] INS[employer]
Tube feeds are provided by [facility] care.
Plan is home with resumption of care.
Patient will require ambulance transport.
PCP: Dr Florian
Pharmacy: [facility]
Plan: home with [facility]
--- NOTE | 2024-07-29 09:50 | PHA.VAN.FU ---
Vancomycin Assessment / Plan
- Assessment
Renal Function: SCR Increasing
WBC's are: Trending Down
In the past 24 hrs, patient has been: Afebrile
Concomitant Antimicrobials: Piperacillin-tazobactam
- Dosing Plan
Continue: Vanc 1000mg q24
- Follow Up
Pharmacy will continue to follow.
Vancomycin Follow UP
- -
Patient Age: 58
Patient Sex: Male
Vancomycin Day #: 2
Indication: SSTI
Requesting Provider: ADORE HERNANDEZ
Height / Weight:
Height 5 ft 5 in
Actual Weight 53.694 kg
Pertinent Past Medical History: SEIZURES, ANOXIC BRAIN INJURY, CHRONIC PRESSURE ULCERS
- Vital Signs / Lab Results
Temp Pulse Resp BP Pulse Ox
99.1 F 106 20 102/67 100
07/29/24 07:00 07/29/24 07:00 07/29/24 07:00 07/29/24 09:02 07/29/24 07:00
Lab Results - Hematology
07/28/24 07/29/24
17:07 07:56
WBC 17.0 H 13.7 H
Lab Results - Chemistry
07/28/24 07/29/24
17:07 07:56
BUN 27 H 25 H
Creatinine 1.1 1.2
Estimated Creat Clear 50
Albumin 3.0 L
07/28/24
19:05
Lactic Acid 0.8
Microbiology Results
07/28/24 19:36 Influenza Types A & B (MAYELA) - Final
Nasal Swab Negative for Influenza A & B, NAAT
Negative results must be combined with clinical observations
and patient history.
Nucleic Acid Amplification test (NAAT)performed on the
[employer] platform.
07/28/24 16:46 Gram Stain - Preliminary
Decubitis Ulcer
--- NOTE | 2024-07-29 10:04 | PTCARENOTE ---
pt has multiple stage 4 wounds on his legs, sacrum/bottom
[2024-07-29 11:00] VITALS: BP 100/65
--- NOTE | 2024-07-29 12:07 | W.PN.HOSP.TC ---
Today's Communication/Plan
-
see bold
Assessment / Plan
Assessment / Plan
Gen: NAD, NCAT
CV: tachy, reg rhythm, +S1/S2, no m/r/g.
Resp: CTAB, no rales, wheezes, or rhonchi.
Skin: No rashes noted but skin exam limited as pt with contractures, difficult to roll
Neuro: unresponsive
07/28/24 16:46 Decubitis Ulcer Wound Culture - Preliminary
Streptococcus pyogenes
07/28/24 16:46 Decubitis Ulcer Gram Stain - Preliminary
07/28/24 19:36 Nasal Swab Influenza Types A & B (MAYELA) - Final
Negative for Influenza A & B, NAAT
Negative results must be combined with clinical observations
and patient history.
Nucleic Acid Amplification test (NAAT)performed on the
[employer] platform.
Sepsis, possibly related to infected decubitus ulcer:
-Reviewed prior culture data: wound culture with VRE, Urine culture with Pseudomonas, and Positive MRSA Screen
-Check COVID/Flu
-Continue Vancomycin and Zosyn for now
-follow Cxs
Paroxysmal Atrial Fibrillation
-Continue metoprolol and amiodarone
Anoxic Brain Injury
-Patient is bedbound and tube feeding dependent
-Continue tube feeding as per dietary recommendations
Multiple Stage IV Pressure Injuries
-Consult Wound Care
Anemia of Chronic Disease and Iron Deficiency Anemia
-Overall Hgb stable compare to previous
Seizure Disorder
-Continue Keppra and Valproic Acid
Functional quadriplegia
DNR/Lovenox
c/s Palliative care as hospice is appropriate.
Anticipated Discharge: > 48 hours
Subjective/Interval History
-
Date of Service: July 29, 2024
Patient unresponsive.
Objective Data
-
Labs:
Laboratory Results
07/29/24
07:56
WBC 13.7 H
Hgb 8.6 L
Hct 28.1 L
Plt Count 278
Sodium 134 L
Potassium 4.3
Chloride 99
Carbon Dioxide 28
BUN 25 H
Creatinine 1.2
Glucose 77
Calcium 9.4
Vital Signs:
Vital Signs
Temp Pulse Resp BP Pulse Ox
98.6 F 102 22 100/65 97
07/29/24 11:00 07/29/24 11:00 07/29/24 11:00 07/29/24 11:00 07/29/24 11:00
I&O
07/28/24 07/29/24 07/30/24
06:59 06:59 06:59
Intake Total 580 / 580
Balance 580 / 580
[2024-07-29 15:00] VITALS: BP 103/71
[2024-07-29] MEDS: LOVENOX 40 MG SC (17:37)
--- NOTE | 2024-07-29 18:12 | PTCARENOTE ---
pt was changed with his brief and attends, pt didn't have have any BM. Dressings looked dry and intact and were reinforced.
[2024-07-29 19:51] VITALS: BP 106/74
[2024-07-29 23:30] VITALS: BP 104/68
[2024-07-30] MEDS: ZOSYN 50 IV ×4 (01:06→19:51)
[2024-07-30 03:30] VITALS: BP 107/69
[2024-07-30] MEDS: VANCOCIN 200 IV (05:25)
[2024-07-30 06:00] VITALS: BMI 19.5
[2024-07-30 07:15] VITALS: BP 105/75
[2024-07-30] MEDS: SANTYL OINTMENT 1 APPLIC TOPICAL (08:16)
[2024-07-30] MEDS: DEPAKENE 125 MG TUBE ×2 (08:17→19:48)
[2024-07-30] MEDS: KEPPRA 750 MG TUBE ×2 (08:17→19:47)
[2024-07-30] MEDS: LOPRESSOR TUBE (08:18)
[2024-07-30] MEDS: PACERONE 200 MG TUBE (08:19)
[2024-07-30 08:35] LABS: Hematocrit 28.9 % (39.0-52.0); Hemoglobin 8.9 g/dL (13.0-18.0); Mean Corp Hgb Conc. 30.8 g/dL (33.0-37.0); Mean Corpuscular Hgb 32.2 pg (27.0-31.0); Mean Corpuscular Volume 104.7 fL (80.0-94.0); Mean Platelet Volume 9.7 fL (7.4-10.4); Platelet Count 295 10^3/uL (130-400); Red Blood Cell Count 2.76 10^6/uL (4.70-6.10); Red Cell Dist. Width 15.9 % (11.5-14.5); White Blood Cell Count 9.7 10^3/uL (4.8-10.8)
[2024-07-30 09:00] VITALS: BMI 19.5
[2024-07-30] MEDS: DAKIN'S SOLUTION 0.125% 1/4 STRENGTH 473 ML TOPICAL (09:15)
--- NOTE | 2024-07-30 09:26 | W.PN.HOSP.TC ---
Addendum entered and electronically signed by Earnest Oquendo MD 07/30/24 14:14:
Severe protein calorie malnutrition
Original Note:
Today's Communication/Plan
-
see bold
Assessment / Plan
Assessment / Plan
Gen: NAD, NCAT
CV: remains tachy, reg rhythm, +S1/S2, no m/r/g.
Resp: CTAB anteriorly, no rales, wheezes, or rhonchi.
Skin: No rashes noted but skin exam limited as pt with contractures, difficult to roll
Neuro: unresponsive but does retract RLE when I try and move it
07/28/24 17:07 Blood/Venous Blood Culture - Preliminary
Coagulase neg. staphylococcus
Additional testing on request
07/28/24 17:07 Blood/Venous Gram Stain - Preliminary
07/28/24 17:07 Blood/Venous Blood Culture - Preliminary
No Growth in 24 hours- Final report to follow
07/28/24 16:46 Decubitis Ulcer Wound Culture - Preliminary
Streptococcus pyogenes
07/28/24 16:46 Decubitis Ulcer Gram Stain - Preliminary
07/28/24 19:36 Nasal Swab Influenza Types A & B (MAYELA) - Final
Negative for Influenza A & B, NAAT
Negative results must be combined with clinical observations
and patient history.
Nucleic Acid Amplification test (NAAT)performed on the
[employer] platform.
Sepsis, possibly related to infected decubitus ulcer:
-Reviewed prior culture data: wound culture with VRE, Urine culture with Pseudomonas, and Positive MRSA Screen
-Check COVID/Flu
-Continue Vancomycin and Zosyn for now, c/s ID
-follow Cxs
Paroxysmal Atrial Fibrillation
-Continue metoprolol and amiodarone
Anoxic Brain Injury
-Patient is bedbound and tube feeding dependent
-Continue tube feeding as per dietary recommendations
Multiple Stage IV Pressure Injuries
-Consult Wound Care
Anemia of Chronic Disease and Iron Deficiency Anemia
-Overall Hgb stable compare to previous
Seizure Disorder
-Continue Keppra and Valproic Acid
Functional quadriplegia
DNR/Lovenox
c/s Palliative care as hospice is appropriate.
Anticipated Discharge: 24 - 48 hours
Subjective/Interval History
-
Date of Service: July 30, 2024
Nonverbal.
Objective Data
-
Labs:
Laboratory Results
07/30/24
07:02
WBC 9.7
Hgb 8.9 L
Hct 28.9 L
Plt Count 295
Sodium Pending
Potassium Pending
Chloride Pending
Carbon Dioxide Pending
BUN Pending
Creatinine Pending
Glucose Pending
Calcium Pending
Vital Signs:
Vital Signs
Temp Pulse Resp BP Pulse Ox
97.5 F 100 18 105/75 97
07/30/24 07:15 07/30/24 07:15 07/30/24 07:15 07/30/24 08:19 07/30/24 07:15
I&O
07/29/24 07/30/24 07/31/24
06:59 06:59 06:59
Intake Total 580 / 580 300 / 300
Balance 580 / 580 300 / 300
[2024-07-30 10:47] LABS: Blood Urea Nitrogen 27 mg/dl (9-20); Carbon Dioxide 26 mmol/L (22-30); Chloride 100 mmol/L (98-107); Estimated Creatinine Clearance 49 ml/min; Glucose 124 mg/dl (70-99); Potassium 4.2 mmol/L (3.5-5.1); Sodium 137 mmol/L (135-145); eGFR > 60.00
--- NOTE | 2024-07-30 10:58 | WOUNDNOTE ---
LEFT LATERAL ANKLE
--- NOTE | 2024-07-30 10:59 | WOUNDNOTE ---
LEFT 2nd AMP TOE
--- NOTE | 2024-07-30 11:00 | WOUNDNOTE ---
RIGHT MEDIAL LEG
--- NOTE | 2024-07-30 11:01 | WOUNDNOTE ---
LEFT LATERAL FOOT
--- NOTE | 2024-07-30 11:03 | WOUNDNOTE ---
RIGHT LATERAL FOOT
--- NOTE | 2024-07-30 11:04 | WOUNDNOTE ---
RIGHT ILIAC AND SACRUM
--- NOTE | 2024-07-30 11:22 | PHA.VAN.FU ---
Vancomycin Assessment / Plan
- Assessment
Renal Function: Stable (1.2)
WBC's are: WNL
In the past 24 hrs, patient has been: Afebrile
Concomitant Antimicrobials: pip/tazo
- Dosing Plan
Continue: vancomycin 1000 mg q24h - first dose 07/29 after 1500 mg load 07/28
- Monitoring Plan
Peak Level: 07/31 0830 - after 4th dose
Trough Level: 08/01 530
- Follow Up
Pharmacy will continue to follow.
Vancomycin Follow UP
- -
Patient Age: 58
Patient Sex: Male
Vancomycin Day #: 3
Indication: SSTI
Requesting Provider: ADORE HERNANDEZ
Height / Weight:
Height 5 ft 5 in
Actual Weight 53.269 kg
Pertinent Past Medical History: SEIZURES, ANOXIC BRAIN INJURY, CHRONIC PRESSURE ULCERS
- Vital Signs / Lab Results
Temp Pulse Resp BP Pulse Ox
97.5 F 100 18 105/75 97
07/30/24 07:15 07/30/24 07:15 07/30/24 07:15 07/30/24 08:19 07/30/24 07:15
Lab Results - Hematology
07/28/24 07/29/24 07/30/24
17:07 07:56 07:02
WBC 17.0 H 13.7 H 9.7
Lab Results - Chemistry
07/28/24 07/29/24 07/30/24
17:07 07:56 07:02
BUN 27 H 25 H 27 H
Creatinine 1.1 1.2 1.2
Estimated Creat Clear 50 49
Albumin 3.0 L
07/28/24
19:05
Lactic Acid 0.8
Microbiology Results
07/28/24 16:46 Wound Culture - Preliminary
Decubitis Ulcer Streptococcus pyogenes
Staphylococcus aureus
Gram Stain - Preliminary
07/28/24 17:07 Blood Culture - Preliminary
Blood/Venous Coagulase neg. staphylococcus
Additional testing on request
Gram Stain - Preliminary
07/28/24 17:07 Blood Culture - Preliminary
Blood/Venous No Growth in 24 hours- Final report to follow
07/28/24 19:36 Influenza Types A & B (MAYELA) - Final
Nasal Swab Negative for Influenza A & B, NAAT
Negative results must be combined with clinical observations
and patient history.
Nucleic Acid Amplification test (NAAT)performed on the
[employer] platform.
--- NOTE | 2024-07-30 11:27 | WOUNDNOTE ---
[facility] RN note: Patient admitted with fevers.
See H&P for complete history. Lives at home with and caregivers. He is current with VN. Multiple recent admissions.
PMH: bedbound, immobile and severely contracted with multiple stage 5 pressure injuries, complicated Covid infection with cardiac arrest and anoxic brain injury, CVA, GJ tube and Trach.
Wound Location and type/assessment: Patient known to service, last discharged from [facility] 07/19/24. Patient admitted with same multiple stage 4 sacral, bilateral iliac, R hip, R medial leg and R lateral elbow pressure injuries. All wounds appear
white work cleaner with exception of L iliac wound and right elbow wound. Left iliac with adherent slough in base. Right elbow wound also with necrotic base and red blanchable skin. NICKI Zhang assisted with care, patient severely retracted, difficult to pull
legs apart to assess wounds. Heels are intact, R lateral foot now with healed PI from last admission. Spine/back intact this admission with healing fungal infection. L dorsal 2nd amp site approximated and clean. Fungal appearing skin to groin and
buttocks.
Appetite: NPO, on tube feeding.
Pressure redistribution devices in place: Static air overlay added to bed. Air cushion under right elbow. Folded blanket btw knees/legs. Patient very contracted and difficult to turn and is on turning schedule.
Plan: Dressings changed on all wounds, Santyl and Dakin's moistened gauze to dry dressing already on order. Antifungal powder applied during care. Patient turned to L semi side lying position with padding under contracted limbs. Condom cath placed
for moisture management. Patient has several comorbidities including bedbound status. Wounds may worsen and new wounds may develop even with optimal care. Will confirm orders. NICKI Zhang updated.
Will follow as needed.
Note to case management of equipment requested for discharge: air mattress
[2024-07-30 11:30] VITALS: BP 125/70
--- NOTE | 2024-07-30 12:04 | W.CON.PAL ---
Consultation
-
Date/Time Consultation Requested: 07/29
Date/Time Consultation Performed: 07/30
Requesting Provider: Azra
Performing Provider: Reyna Hill
Reason for Consult: Goals of Care Discussion
Primary Diagnosis: anoxic brain injury, sepsis
Reason for Admission
Illness Course/HPI
58 year old M with history of an anoxic brain injury 2/2 cardiac arrest, multiple pressure wounds, afib admitted with persistent fevers at home. Went to ED 1 day prior to arrival with fevers - infectious workup with xray and UA negative and sent
home. Fevers persistent and brought back for further workup. Concern for possible wound infection. Wound culture with VRE, blood cultures positive. ID consult pending.
Multiple hospitalizations over the previous months for infections. Lives at home with and 24/7 caregivers per chart review.
Pain & Symptom Assessment
Patient Symptoms
Patient Symptoms: Other (nonverbal )
Objective Data
-
Objective Data:
Vital Signs
Temp Pulse Resp BP Pulse Ox
98.1 F 100 18 125/70 98
07/30/24 11:30 07/30/24 11:30 07/30/24 11:30 07/30/24 11:30 07/30/24 11:30
Laboratory Results
07/30/24 07:02
07/30/24 07:02
Total Protein 6.6 g/dl (6.3-8.2) 07/28/24 17:07
Albumin 3.0 g/dl (3.5-5.0) L 07/28/24 17:07
Palliative Performance Scale
Palliative Performance Scale:
PPS Level Ambulation Activity & Evidence of Disease Self Care Intake Conscious Level
100% Full Normal Activity & Work; Full Intake Full
No Evidence of Disease
90% Full Normal Activity & Work; Full Normal Full
Some Evidence of Disease
80% Full Normal Activity with Effort Full Normal or Full
Some Evidence of Disease Reduced
70% Reduced Unable Normal Job/Work Full Normal or Full
Significant Disease Reduced
60% Reduced Unable Hobby/Housework Occasional Normal or Full or Confusion
Significant Disease Assistance Reduced
50% Mainly Sit/Lie Unable to do Any Work Considerable Normal or Full or Confusion
Extensive Disease Assistance Req'd Reduced
40% Mainly in Bed Unable to do Most Activity Mainly Assistance Normal or Full or Drowsy;
Extensive Disease Reduced +/- Confusion
30% Totally Bed Unable to do Any Activity Total Care Normal or Full or Drowsy;
Bound Extensive Disease Reduced +/- Confusion
20% Totally Bed Bound Unable to do Any Activity Total Care Minimal to Full or Drowsy;
Extensive Disease Sips +/- Confusion
10% Totally Bed Bound Unable to do Any Activity Total Care Mouth Care Drowsy or Coma;
Extensive Disease Only +/- Confusion
0%
PPS Score Level:
Palliative Performance Score Response
Palliative Performance Score Response: 10%
Physical Exam
-
General: Appears Chronically Ill and Unresponsive
HEENT: Normocephalic
Respiratory: Rhonchi
Cardiac: Regular Rhythm
Peripheral Vascular: No Edema
GI: Soft and Other (peg)
Skin: Decubitus Ulcers (multiple )
Neuro: Other (nonverbal )
Assessment / Plan
-
Assessment/Plan:
58 year old M with anoxic brain injury, multiple pressure ulcers admitted with persistent fevers.
Spoke with patients Karyna. Karyna states understanding that he has been back and forth to the hospital quite a bit and knows its not sustainable. Says she does everything she can to keep him out of the hospital but it doesnt work. Discussed even
with her best efforts, he is high risk for infections so its not a question of if, but when will he come back. Hospice has been discussed in the past. We discussed it again. She has a hard time making decisions but knows he is probably suffering.
but also doesnt want to fully give up medical treatment.
She would like to speak with patients siblings this weekend (hopefully) about next steps. Will follow up as able.
Care Reviewed
Data Reviewed
Radiology procedure: Image Reviewed
Medical Tests: I reviewed
Reviewed with: Patient, Family and Physician
--- NOTE | 2024-07-30 12:33 | PN.CDI ---
CDI
- -
CDI:
Physician Documentation Request
Admit Date: 07/28/24 19:52
Dear Doctor Azra,
Clinical Indicators:
Patient admitted with sepsis.
07/30 RD note/assessment: -Subcutaneous loss: Rib Cage- Severe
-Muscle Loss: Calf- Severe Quads- Severe Clavicle- Severe
-'During visit today, RN assisted RD to observe appearance of severe loss on clavicle,
rib cage, quads, calves (pt contracted as noted by MD). As noted during last
admission, pt meeting criteria for severe protein/calorie malnutrition (chronic
illness) as per observation of multiplesite fat/muscle loss.
Based on the above information and your assessment, which of the following most accurately represents the patient's nutritional status?
Severe Protein Calorie Malnutrition
Other (please specify)
[place] Criteria ([facility] Hospitalist 2017)
2 or more criteria must be present for either
non severe or severe malnutrition
Note that the criteria differs related to the
presence of an acute or chronic illness
Acute Illness Chronic Illness
Energy Intake Non Severe: <75% for >7 days Non Severe: <75% for >1 month
Severe: <50% for >5 days Severe: <75% for >1 month
Weight Loss Non Severe: 1-2% over 1 week Non Severe: 5% over 1 month
5% over 1 month 7.5% over 3 months
7.5% over 3 months 10% over 6 months
1 year N/A 20% over 1 year
Severe: >2% over 1 week Severe: >5% over 1 month
>5% over 1 month >7.5% over 3 months
>7.5% over 3 months >10% over 6 months
1 year N/A >20% over 1 year
Body Fat Non Severe: Mild Decrease Non Severe: Mild Loss
Severe: Moderate Decrease Severe: Severe Loss
Muscle Mass Non Severe: Mild Decrease Non Severe: Mild Loss
Severe: Moderate Decrease Severe: Severe Loss
Fluid Accumulation Non Severe: Mild Accumulation Non Severe: Mild Accumulation
Severe: Moderate to severe Severe: Moderate to severe
accumulation accumulation
Reduced Hospice Clinical Manager Strength Non Severe: N/A Non Severe: N/A
Severe: Measurably reduced Severe: Measurably reduced
Additional criteria that can be used to Determine if Mild or Moderate Malnutrition (Merck Manual 2018)
Mild Moderate Severe
Albumin gm/dl <3.0 gm/dl <2.5 gm/dl <2.0 gm/dl
Pre Albumin mg/dl <15 gm/dl <10 mg/dl <5.0 mg/dl
BMI <18.5 <17 <16
Use of terms such as suspected, likely, concern for, or probable (associated with a specific diagnosis that is being evaluated, monitored, or treated as if it exists) are acceptable and can be coded in the inpatient setting, when documented at the
time of discharge.
Thank you,
Malena Chaudhry RN BSN
CDI Specialist
available via tiger text
Please use your independent medical judgment in providing your response.
--- NOTE | 2024-07-30 13:14 | PTCARENOTE ---
all pt's wounds changed today with wound care nurse Alison, and dated for today 07/30. Pt's brief was changed as well
[2024-07-30 15:30] VITALS: BP 115/73
--- NOTE | 2024-07-30 16:08 | CON.ID ---
Consultation
-
Date/Time Consultation Requested: 07/30/24 9:29
Date/Time Consultation Performed: 07/30/24 16:08
Requesting Provider: Dr Oquendo
Performing Provider: Dr Rae
Reason for Consultation: sepsis possible due to wounds
Chief Complaint / Past History
Chief Complaint
fever
History of Present Illness
Mr Lucio is a 58 year old male with history of anoxic brain injury, seizure disorder, contractions, who presented here 07/28 with stage 4 sacral, bilateral iliac, R hip, R medial leg and R lateral elbow pressure injuries; L iliac wound with
slough in the base, right elbow with necrotic base and red blanchable skin. Patient is not able to provide history history is from chart review.
Since arrival here tmax 100.5, bp stable, wbc initially 17 today 9.7, hgb 8.9, plt 295, L shift present on arrival, cr 1.2, covid ag negative, influenza negative, wound culture s aurues and s pyogenes, one of two sets of blood cultures with CONS,
currently on vancomycin and zosyn.
Past History
Additional Past Medical History:
Paroxysmal Atrial Fibrillation
Anoxic Brain Injury
Multiple Stage IV Pressure Injuries
Anemia of Chronic Disease and Iron Deficiency Anemia
Seizure Disorder
Esophagitis / Esophageal Ring
Additional Past Surgical History:
Appendectomy
Tonsillectomy
PEG
Trache - decanulated
Allergy History:
phenobarbital Allergy (Verified 07/28/24 16:38)
Unknown
Medications Reviewed: Yes
Social History
Personal:
Living: With Family
Employment: Not Employed
Family History
Family History: Not Pertinent
Review of Systems
Review of Systems
unable to obtain due to the condition of the patient
Vital Signs
Temp Pulse Resp BP Pulse Ox
98.2 F 109 18 115/73 98
07/30/24 15:30 07/30/24 15:30 07/30/24 15:30 07/30/24 15:30 07/30/24 15:30
Physical Exam
Physical Exam
Constitutional: No Acute Distress
Cardiovascular: Regular Rate and S1/S2; Negative Murmur or Rub
Pulmonary: Clear and Symmetric; Negative Wheezes, Rales or Rhonchi
Gastrointestinal: Soft, Non Tender, Non Distended and Normal Bowel Sounds
Skin: Warm and Dry; Negative Rash or Jaundice
Wound: Other (sacral wound with surrounding erythema with serpiginous border; right elbow with eschar)
Lab / Diagnostic Study Results
07/30/24 07:02
07/30/24 07:02
Abs Immat Gran (auto) 0.1 10^3/uL (0-0.05) H 07/28/24 17:07
Absolute Neuts (auto) 13.0 10^3/uL (1.4-6.5) H 07/28/24 17:07
Absolute Lymphs (auto) 1.8 10^3/uL (1.2-3.4) 07/28/24 17:07
Absolute Monos (auto) 1.9 10^3/uL (0.1-0.6) H 07/28/24 17:07
Absolute Basos (auto) 0.1 10^3/uL (0-0.2) 07/28/24 17:07
Immature Gran % 0.4 % (0-0.5) 07/28/24 17:07
Neutrophils % 76.0 % (42.2-75.2) H 07/28/24 17:07
Lymphocytes % 10.3 % (20.5-51.1) L 07/28/24 17:07
Monocytes % 11.2 % (1.7-9.3) H 07/28/24 17:07
Eosinophils % 1.7 % (0-6) 07/28/24 17:07
Basophils % 0.4 % (0-2) 07/28/24 17:07
Lactic Acid 0.8 mmol/L (0.7-2.0) 07/28/24 19:05
Microbiology Results
Micro:
07/28/24 16:46 Wound Culture - Preliminary
Decubitis Ulcer Streptococcus pyogenes
Staphylococcus aureus
Gram Stain - Preliminary
07/28/24 17:07 Blood Culture - Preliminary
Blood/Venous Coagulase neg. staphylococcus
Additional testing on request
Gram Stain - Preliminary
07/28/24 17:07 Blood Culture - Preliminary
Blood/Venous No Growth in 24 hours- Final report to follow
07/28/24 19:36 Influenza Types A & B (MAYELA) - Final
Nasal Swab Negative for Influenza A & B, NAAT
Negative results must be combined with clinical observations
and patient history.
Nucleic Acid Amplification test (NAAT)performed on the
[employer] platform.
Assessment / Plan
Multiple Decubitus Ulcers with skin/soft tissue infection
Contaminated Blood culture - 1 set with CONS and second set is no growth to date
Anoxic Brain Injury
PEG
Contractures
- note 07/28 wound culture with s pyogenes and s aureus
- single blood culture with CONS is a contaminant
- CT a/p wounds, high stool burden
- continue vancomycin and zosyn for now, transition to a short course of oral
- treating any underlying osteomyelitis without coverage of the bone is futile and would result in acquisition of progressively more resistant pathogens leaving patient in a worse position. would not be possible to offload all of his pressure
injuries particularly given contractures. Recurrent infections expected.
Medium to Senior Care Prognosis Grim - recommend hospice
[2024-07-30] MEDS: LOVENOX 40 MG SC (17:25)
[2024-07-30 19:05] VITALS: BP 124/79
[2024-07-30] MEDS: LOPRESSOR 25 MG TUBE (19:49)
[2024-07-30 23:20] VITALS: BP 126/72
[2024-07-31 00:29] VITALS: BP 126/72
[2024-07-31] MEDS: ZOSYN 50 IV ×4 (01:12→21:00)
[2024-07-31 03:04] VITALS: BP 123/65
[2024-07-31] MEDS: VANCOCIN 200 IV (05:03)
[2024-07-31 06:00] VITALS: BMI 20.3
[2024-07-31 07:15] VITALS: BP 120/69
--- NOTE | 2024-07-31 09:06 | W.PN.HOSP.TC ---
Today's Communication/Plan
-
see bold
Assessment / Plan
Assessment / Plan
Gen: NAD, NCAT
CV: continues to remain tachy, reg rhythm, +S1/S2, no m/r/g.
Resp: CTAB anteriorly, no rales, wheezes, or rhonchi.
Skin: No rashes noted but skin exam limited as pt with contractures, difficult to roll
Neuro: unresponsive
07/28/24 16:46 Decubitis Ulcer Wound Culture - Preliminary
S aureus-Methicillin Sensitive
Streptococcus pyogenes
Gram negative bacilli
07/28/24 16:46 Decubitis Ulcer Gram Stain - Preliminary
07/28/24 17:07 Blood/Venous Blood Culture - Preliminary
No Growth in 48 hours- Final report to follow
07/28/24 17:07 Blood/Venous Blood Culture - Preliminary
Coagulase neg. staphylococcus
Additional testing on request
07/28/24 17:07 Blood/Venous Gram Stain - Preliminary
07/28/24 19:36 Nasal Swab Influenza Types A & B (MAYELA) - Final
Negative for Influenza A & B, NAAT
Negative results must be combined with clinical observations
and patient history.
Nucleic Acid Amplification test (NAAT)performed on the
[employer] NOW platform.
Sepsis, possibly related to infected decubitus ulcer:
-stage 3 R iliac and sacral PIs
-Reviewed prior culture data: wound culture with VRE, Urine culture with Pseudomonas, and Positive MRSA Screen
-COVID/Flu NEG
-Continue Vancomycin and Zosyn as per ID
-follow Cxs
Hypoglycemia:
-25g D50w followed by D5NS @100cc/hr
Paroxysmal Atrial Fibrillation
-Continue metoprolol and amiodarone
Anoxic Brain Injury
-Patient is bedbound and tube feeding dependent
-Continue tube feeding as per dietary recommendations
-c/s IR for clogged PEG
Multiple Stage IV Pressure Injuries
-Consult Wound Care
Anemia of Chronic Disease and Iron Deficiency Anemia
-Overall Hgb stable compare to previous
Seizure Disorder
-Continue Keppra and Valproic Acid
Functional quadriplegia
DNR/Lovenox
Pt's updated over the phone. She is not interested in hospice at this time.
Total time spent on today's encounter was 50 minutes which included time spent in counseling the patient/family regarding diagnosis and treatment plan as listed above, goals of care, and symptom management. Case was discussed with nursing staff,
specialists, and care coordinators/case management. All labs and imaging personally reviewed by me. Remainder the time spent in detailed review of previous records, lab data, imaging, and other medical provider documentation.
Anticipated Discharge: > 48 hours
Subjective/Interval History
-
Date of Service: July 31, 2024
Objective Data
-
Labs:
Laboratory Results
07/31/24
06:00
WBC Pending
Hgb Pending
Hct Pending
Plt Count Pending
Sodium Pending
Potassium Pending
Chloride Pending
Carbon Dioxide Pending
BUN Pending
Creatinine Pending
Glucose Pending
Calcium Pending
Vital Signs:
Vital Signs
Temp Pulse Resp BP Pulse Ox
97.9 F 85 18 120/69 98
07/31/24 07:15 07/31/24 07:15 07/31/24 07:15 07/31/24 07:15 07/31/24 07:15
I&O
07/30/24 07/31/24 08/01/24
06:59 06:59 06:59
Intake Total 300 / 300
Output Total 550 / 550
Balance 300 / 300 -550 / -550
--- NOTE | 2024-07-31 09:37 | W.PN.UPDATE ---
Update Note
Progress Note Update
Asked to see patient for clogged feeding tube. Feeding tube is GJ tube. Asked IM attending to consult IR for this. Discussed with RN.
[2024-07-31 10:00] LABS: Hematocrit 30.4 % (39.0-52.0); Hemoglobin 9.3 g/dL (13.0-18.0); Mean Corp Hgb Conc. 30.6 g/dL (33.0-37.0); Mean Corpuscular Hgb 31.3 pg (27.0-31.0); Mean Corpuscular Volume 102.4 fL (80.0-94.0); Mean Platelet Volume 9.4 fL (7.4-10.4); Platelet Count 293 10^3/uL (130-400); Red Blood Cell Count 2.97 10^6/uL (4.70-6.10); Red Cell Dist. Width 15.6 % (11.5-14.5); White Blood Cell Count 11.5 10^3/uL (4.8-10.8)
[2024-07-31 10:12] LABS: Vancomycin Peak 33.4 ug/ml (18-26)
[2024-07-31 10:18] LABS: Blood Urea Nitrogen 25 mg/dl (9-20); Calcium 9.1 mg/dl (8.4-10.2); Carbon Dioxide 30 mmol/L (22-30); Chloride 101 mmol/L (98-107); Estimated Creatinine Clearance 56 ml/min; Glucose 85 mg/dl (70-99); Sodium 137 mmol/L (135-145); eGFR > 60.00
--- NOTE | 2024-07-31 11:00 | PTCARENOTE ---
Feeding pump alarming for blockage, tube unable to be manually flushed d/t resistance. MD notified, tube feeding held. IRAD consulted for GJ tube replacement. Plan of care ongoing.
--- NOTE | 2024-07-31 11:02 | PHA.VAN.FU ---
Vancomycin Assessment / Plan
- Assessment
Renal Function: Stable
WBC's are: Trending Up
In the past 24 hrs, patient has been: Afebrile
Concomitant Antimicrobials: zosyn 3.375 mg q6h
- Assessment - Therapeutic Drug Monitoring
Peak level was drawn: More than 3 hours after previous dose (33.4 on 07.31 @ 09:44)
- Dosing Plan
Continue: vancomycin 1000mg q24h
- Monitoring Plan
Trough Level: 12. @05:30
- Follow Up
Pharmacy will continue to follow.
Vancomycin Follow UP
- -
Patient Age: 58
Patient Sex: Male
Vancomycin Day #: 4
Indication: SSTI
Requesting Provider: ADORE HERNANDEZ
Height / Weight:
Height 5 ft 5 in
Actual Weight 55.395 kg
IBW in k.5 KG
Pertinent Past Medical History: SEIZURES, ANOXIC BRAIN INJURY, CHRONIC PRESSURE ULCERS
- Vital Signs / Lab Results
Temp Pulse Resp BP Pulse Ox
97.9 F 85 18 120/69 98
07/31/24 07:15 07/31/24 07:15 07/31/24 07:15 07/31/24 07:15 07/31/24 07:15
Lab Results - Hematology
07/28/24 07/29/24 07/30/24
17:07 07:56 07:02
WBC 17.0 H 13.7 H 9.7
07/31/24
09:44
WBC 11.5 H
Lab Results - Chemistry
07/28/24 07/29/24 07/30/24
17:07 07:56 07:02
BUN 27 H 25 H 27 H
Creatinine 1.1 1.2 1.2
Estimated Creat Clear 50 49
Albumin 3.0 L
07/31/24
09:44
BUN 25 H
Creatinine 1.1
Estimated Creat Clear 56
Albumin
07/28/24
19:05
Lactic Acid 0.8
Microbiology Results
07/28/24 16:46 Wound Culture - Preliminary
Decubitis Ulcer S aureus-Methicillin Sensitive
Streptococcus pyogenes
Gram negative bacilli
Gram Stain - Preliminary
07/28/24 17:07 Blood Culture - Preliminary
Blood/Venous No Growth in 48 hours- Final report to follow
07/28/24 17:07 Blood Culture - Preliminary
Blood/Venous Coagulase neg. staphylococcus
Additional testing on request
Gram Stain - Preliminary
Therapeutic Drug Monitoring
Vancomycin Peak 33.4 ug/ml (18-26) H 07/31/24 09:44
--- NOTE | 2024-07-31 11:19 | W.PN.ID1 ---
Date of Service
Date of Service: July 31, 2024
Today's Communication
- continue zosyn for now, stop vancomycin, anticipate transition to a short course of oral when ID of GNR available
- treating any underlying osteomyelitis without coverage of the bone is futile and would result in acquisition of progressively more resistant pathogens leaving patient in a worse position. would not be possible to offload all of his pressure
injuries particularly given contractures. Recurrent infections expected.
Medium to Retirement Prognosis Grim - recommend hospice however family refusing.
Assessment / Plan
Multiple Decubitus Ulcers with skin/soft tissue infection
Contaminated Blood culture - 1 set with CONS and second set is no growth to date
Anoxic Brain Injury
PEG
Contractures
- note 07/28 wound culture with s pyogenes, MSSA and a GNR
- single blood culture with CONS is a contaminant
- CT a/p wounds, high stool burden - having bowel movements
- continue zosyn for now, stop vancomycin, anticipate transition to a short course of oral when ID of GNR available
- continue wound care
- treating any underlying osteomyelitis without coverage of the bone is futile and would result in acquisition of progressively more resistant pathogens leaving patient in a worse position. would not be possible to offload all of his pressure
injuries particularly given contractures. Recurrent infections expected.
Medium to Retirement Prognosis Grim - recommend hospice however family refusing.
Chief Complaint
-: Other (multiple decubitus ulcers)
Subjective / Review of Systems
afebrile
bp stable
peg tube clogged - being reassessed
Vital Signs / Physical Exam
Vital Signs
Vital Signs
Temp Pulse Resp BP Pulse Ox
97.9 F 85 18 120/69 98
07/31/24 07:15 07/31/24 07:15 07/31/24 07:15 07/31/24 07:15 07/31/24 08:00
Physical Exam
Constitutional: No Acute Distress, Chronically Ill and Other (contracted)
Cardiovascular: Regular Rate
Pulmonary: Symmetric and Non Labored
Gastrointestinal: Non Distended
Skin: Dry; Negative Rash or Jaundice
Wound: Other (multiple decubitus ulcers noted)
Neurological: Negative Awake
Objective Data
Lab Data
Lab Results
07/31/24 09:44
07/31/24 09:44
Estimated Creat Clear 56 ml/min 07/31/24 09:44
Lactic Acid 0.8 mmol/L (0.7-2.0) 07/28/24 19:05
Total Bilirubin 0.4 mg/dl (0.2-1.3) 07/28/24 17:07
AST 19 U/L (17-59) 07/28/24 17:07
ALT 18 U/L (0-50) 07/28/24 17:07
Alkaline Phosphatase 131 U/L (38-126) H 07/28/24 17:07
Most recent labs reviewed.
Micro Results:
07/28/24 16:46 Wound Culture - Preliminary
Decubitis Ulcer S aureus-Methicillin Sensitive
Streptococcus pyogenes
Gram negative bacilli
Gram Stain - Preliminary
07/28/24 17:07 Blood Culture - Preliminary
Blood/Venous No Growth in 48 hours- Final report to follow
07/28/24 17:07 Blood Culture - Preliminary
Blood/Venous Coagulase neg. staphylococcus
Additional testing on request
Gram Stain - Preliminary
07/28/24 19:36 Influenza Types A & B (MAYELA) - Final
Nasal Swab Negative for Influenza A & B, NAAT
Negative results must be combined with clinical observations
and patient history.
Nucleic Acid Amplification test (NAAT)performed on the
[employer] platform.
[2024-07-31] MEDS: KEPPRA 750 MG TUBE ×2 (12:42→21:00)
[2024-07-31] MEDS: PACERONE 200 MG TUBE (12:42)
[2024-07-31] MEDS: DEPAKENE 125 MG TUBE ×2 (12:46→21:00)
[2024-07-31] MEDS: SANTYL OINTMENT 1 APPLIC TOPICAL (12:47)
[2024-07-31] MEDS: LOPRESSOR 25 MG TUBE ×2 (12:47→20:50)
[2024-07-31] MEDS: D5/0.9% SODIUM CHLORIDE 1000 IV (12:48)
[2024-07-31] MEDS: DAKIN'S SOLUTION 0.125% 1/4 STRENGTH 473 ML TOPICAL (12:48)
--- NOTE | 2024-07-31 14:53 | CM ---
Addendum entered by Laisha Wood 07/31/24 15:21:
Andie BENJAMIN
Original Note:
CM reviewed chart, hospice recommended, patients not agreeable at this time. Patient current with Andie B[facility], has 25/02 care at home, tube feeds through [facility]. Patient will require ambulance transport home upon discharge. Updates to Nikia BENJAMIN
in [facility]. CM will continue to follow for all discharge planning needs.
Plan; home with , caregivers, Andie BENJAM[facility], [facility] for tube feeds
[2024-07-31 15:20] VITALS: BP 106/62
[2024-07-31] MEDS: LOVENOX 40 MG SC (17:31)
[2024-07-31 20:14] VITALS: BP 117/71
[2024-07-31] MEDS: TYLENOL 650 MG TUBE (22:47)
[2024-07-31 23:00] VITALS: BP 106/72
[2024-08-01 01:21] LABS: Glucose - Point of Care 111 mg/dl (70-99)
[2024-08-01] MEDS: ZOSYN 50 IV ×4 (02:26→20:31)
[2024-08-01 03:43] VITALS: BP 95/68
[2024-08-01 06:00] VITALS: BMI 20.5
[2024-08-01] MEDS: D5/0.9% SODIUM CHLORIDE 1000 IV ×2 (06:15→08:09)
[2024-08-01 07:00] VITALS: BP 111/77
[2024-08-01 07:10] LABS: Glucose - Point of Care 152 mg/dl (70-99)
[2024-08-01] MEDS: PACERONE 200 MG TUBE (08:10)
[2024-08-01] MEDS: SANTYL OINTMENT 1 APPLIC TOPICAL (08:11)
[2024-08-01] MEDS: LOPRESSOR 25 MG TUBE ×2 (08:11→20:31)
[2024-08-01] MEDS: DEPAKENE 125 MG TUBE ×2 (08:15→20:32)
[2024-08-01] MEDS: KEPPRA 750 MG TUBE ×2 (08:16→20:32)
[2024-08-01 08:18] LABS: Hematocrit 29.1 % (39.0-52.0); Mean Corp Hgb Conc. 30.9 g/dL (33.0-37.0); Mean Corpuscular Hgb 31.7 pg (27.0-31.0); Mean Corpuscular Volume 102.5 fL (80.0-94.0); Mean Platelet Volume 9.4 fL (7.4-10.4); Platelet Count 297 10^3/uL (130-400); Red Blood Cell Count 2.84 10^6/uL (4.70-6.10); Red Cell Dist. Width 15.6 % (11.5-14.5); White Blood Cell Count 10.5 10^3/uL (4.8-10.8)
[2024-08-01] MEDS: DAKIN'S SOLUTION 0.125% 1/4 STRENGTH 1 ML TOPICAL (08:18)
[2024-08-01 08:54] LABS: Blood Urea Nitrogen 25 mg/dl (9-20); Calcium 8.9 mg/dl (8.4-10.2); Carbon Dioxide 28 mmol/L (22-30); Chloride 100 mmol/L (98-107); Estimated Creatinine Clearance 62 ml/min; Glucose 130 mg/dl (70-99); Sodium 138 mmol/L (135-145); eGFR > 60.00
--- NOTE | 2024-08-01 10:51 | W.PN.HOSP.TC ---
Today's Communication/Plan
-
see bold
Assessment / Plan
Assessment / Plan
Gen: NAD, NCAT
Eyes: no scleral icterus
CV: tachy, reg rhythm, +S1/S2, no m/r/g.
Resp: remains CTAB anteriorly, no rales, wheezes, or rhonchi. light brody mucous from trach
Skin: No rashes noted but skin exam limited as pt with contractures, difficult to roll
Neuro: eyes open but does not follow commands
07/28/24 16:46 Decubitis Ulcer Wound Culture - Final
S aureus-Methicillin Sensitive
Pseudomonas aeruginosa
Streptococcus pyogenes
07/28/24 16:46 Decubitis Ulcer Gram Stain - Final
07/28/24 17:07 Blood/Venous Blood Culture - Preliminary
No Growth in 72 hours- Final report to follow
07/28/24 17:07 Blood/Venous Blood Culture - Preliminary
Coagulase neg. staphylococcus
Additional testing on request
07/28/24 17:07 Blood/Venous Gram Stain - Preliminary
07/28/24 19:36 Nasal Swab Influenza Types A & B (MAYELA) - Final
Negative for Influenza A & B, NAAT
Negative results must be combined with clinical observations
and patient history.
Nucleic Acid Amplification test (NAAT)performed on the
[employer] ID NOW platform.
Sepsis, possibly related to infected decubitus ulcer:
-stage 3 R iliac and sacral PIs
-COVID/Flu NEG
-Continue Zosyn as per ID
-Decubitus ulcer culture with MSSA, Pseudomonas, strep pyogenes
Paroxysmal Atrial Fibrillation
-Continue metoprolol and amiodarone
Anoxic Brain Injury
-Patient is bedbound and tube feeding dependent
-Continue tube feeding as per dietary recommendations
-G-J tube was clogged and exchanged by IR on 07/31/24
Multiple Stage IV Pressure Injuries
-Consult Wound Care
Anemia of Chronic Disease and Iron Deficiency Anemia
-Overall Hgb stable compare to previous
Seizure Disorder
-Continue Keppra and Valproic Acid
Functional quadriplegia
DNR/Lovenox
Pt's updated over the phone on 07/31/24. She is not interested in hospice at this time.
Anticipated Discharge: > 48 hours
Subjective/Interval History
-
Date of Service: August 01, 2024
Objective Data
-
Labs:
Laboratory Results
08/01/24
07:42
WBC 10.5
Hgb 9.0 L
Hct 29.1 L
Plt Count 297
Sodium 138
Potassium 4.0
Chloride 100
Carbon Dioxide 28
BUN 25 H
Creatinine 1.0
Glucose 130 H
Calcium 8.9
Vital Signs:
Vital Signs
Temp Pulse Resp BP Pulse Ox
97.4 F 88 18 111/77 96
08/01/24 07:00 08/01/24 08:10 08/01/24 07:00 08/01/24 08:10 08/01/24 09:50
I&O
07/31/24 08/01/24 08/02/24
06:59 06:59 06:59
Intake Total 160 / 160
Output Total 550 / 550 700 / 700
Balance -550 / -550 -540 / -540
--- NOTE | 2024-08-01 11:31 | W.PN.ID1 ---
Date of Service
Date of Service: August 01, 2024
Today's Communication
Continue Zosyn for today
Assessment / Plan
Multiple Decubitus Ulcers with skin/soft tissue infection
Contaminated Blood culture - 1 set with CONS and second set is no growth to date
Anoxic Brain Injury
PEG
Contractures
Recommendations:
- note 07/28 wound culture with s pyogenes, MSSA and Pseudomonas
- single blood culture with CONS is a contaminant
- CT a/p wounds, high stool burden - having bowel movements
Continue with Zosyn for today.
Continue local wound care.
- treating any underlying osteomyelitis without coverage of the bone is futile and would result in acquisition of progressively more resistant pathogens leaving patient in a worse position. would not be possible to offload all of his pressure
injuries particularly given contractures. Recurrent infections expected.
Patient with exceedingly poor quality of life, functionally quadriplegic, with no expectation of improvement.
Would expect recurrent hospitalizations despite maximal care.
Patient is hospice appropriate, which has been offered to family, but they have refused.
����������������������������������������������������������
Chief Complaint
-: Other (multiple decubitus ulcers)
Subjective / Review of Systems
Patient seen and examined.
Review of Systems: No Fever
Vital Signs / Physical Exam
Vital Signs
Vital Signs
Temp Pulse Resp BP Pulse Ox
97.4 F 88 18 111/77 96
08/01/24 07:00 08/01/24 08:10 08/01/24 07:00 08/01/24 08:10 08/01/24 09:50
Physical Exam
Constitutional: Chronically Ill, Non-toxic and Cachetic
Eyes: No Conjunctival Hemorrhage and Sclera Anicteric
Pulmonary: Non Labored
Gastrointestinal: Normal Bowel Sounds and Other (PEG tube in place.)
Extremities: Other (Profoundly contracted)
Wound: Other (Multiple)
Objective Data
Lab Data
Lab Results
08/01/24 07:42
08/01/24 07:42
Estimated Creat Clear 62 ml/min 08/01/24 07:42
Lactic Acid 0.8 mmol/L (0.7-2.0) 07/28/24 19:05
Total Bilirubin 0.4 mg/dl (0.2-1.3) 07/28/24 17:07
AST 19 U/L (17-59) 07/28/24 17:07
ALT 18 U/L (0-50) 07/28/24 17:07
Alkaline Phosphatase 131 U/L (38-126) H 07/28/24 17:07
Most recent labs reviewed.
Micro Results:
07/28/24 16:46 Wound Culture - Final
Decubitis Ulcer S aureus-Methicillin Sensitive
Pseudomonas aeruginosa
Streptococcus pyogenes
Gram Stain - Final
07/28/24 17:07 Blood Culture - Preliminary
Blood/Venous No Growth in 72 hours- Final report to follow
07/28/24 17:07 Blood Culture - Preliminary
Blood/Venous Coagulase neg. staphylococcus
Additional testing on request
Gram Stain - Preliminary
07/28/24 19:36 Influenza Types A & B (MAYELA) - Final
Nasal Swab Negative for Influenza A & B, NAAT
Negative results must be combined with clinical observations
and patient history.
Nucleic Acid Amplification test (NAAT)performed on the
[email or web address] platform.
[2024-08-01 11:40] VITALS: BP 114/74
[2024-08-01 11:45] LABS: Glucose - Point of Care 118 mg/dl (70-99)
--- NOTE | 2024-08-01 13:37 | CM ---
Patient seen at bedside.
Patient current with [facility]ie B[facility], has 24/ care at home, tube feeds through [facility].
Referral in [facility]
multiple wounds noted - recent hospitalization
not agreeable to hospice
PLAN: [facility]
Andie BENJAMIN
[2024-08-01 15:00] VITALS: BP 144/89
--- NOTE | 2024-08-01 16:00 | PTCARENOTE ---
Assessment unchanged from previous assessment. Trach stoma care given, peg site care given. Patient nonverbal, awake.
[2024-08-01] MEDS: LOVENOX 40 MG SC (17:15)
[2024-08-01 18:58] LABS: Glucose - Point of Care 126 mg/dl (70-99)
[2024-08-01 23:11] VITALS: BP 99/69
[2024-08-02 00:46] LABS: Glucose - Point of Care 135 mg/dl (70-99)
[2024-08-02] MEDS: ZOSYN 50 IV ×4 (02:01→20:31)
[2024-08-02 05:59] LABS: Hematocrit 29.4 % (39.0-52.0); Hemoglobin 9.1 g/dL (13.0-18.0); Mean Corpuscular Hgb 31.8 pg (27.0-31.0); Mean Corpuscular Volume 102.8 fL (80.0-94.0); Mean Platelet Volume 9.2 fL (7.4-10.4); Platelet Count 294 10^3/uL (130-400); Red Blood Cell Count 2.86 10^6/uL (4.70-6.10); Red Cell Dist. Width 15.6 % (11.5-14.5); White Blood Cell Count 11.7 10^3/uL (4.8-10.8)
[2024-08-02 06:00] VITALS: BMI 21.0
[2024-08-02 06:21] LABS: Blood Urea Nitrogen 24 mg/dl (9-20); Calcium 8.9 mg/dl (8.4-10.2); Carbon Dioxide 29 mmol/L (22-30); Chloride 102 mmol/L (98-107); Estimated Creatinine Clearance 64 ml/min; Glucose 105 mg/dl (70-99); Potassium 4.3 mmol/L (3.5-5.1); Sodium 137 mmol/L (135-145); eGFR > 60.00
[2024-08-02 06:29] LABS: Glucose - Point of Care 113 mg/dl (70-99)
[2024-08-02 07:00] VITALS: BP 120/79
[2024-08-02] MEDS: DAKIN'S SOLUTION 0.125% 1/4 STRENGTH 25 ML TOPICAL (09:30)
[2024-08-02] MEDS: LOPRESSOR 25 MG TUBE (09:31)
[2024-08-02] MEDS: DEPAKENE 125 MG TUBE ×2 (09:32→20:22)
[2024-08-02] MEDS: KEPPRA 750 MG TUBE ×2 (09:32→20:25)
[2024-08-02] MEDS: PACERONE 200 MG TUBE (09:33)
[2024-08-02] MEDS: SANTYL OINTMENT 1 APPLIC TOPICAL (09:34)
[2024-08-02 12:11] LABS: Glucose - Point of Care 123 mg/dl (70-99)
--- NOTE | 2024-08-02 13:18 | W.PN.HOSP.TC ---
Today's Communication/Plan
-
see bold
Assessment / Plan
Assessment / Plan
Gen: NAD, NCAT
Eyes: no scleral icterus
CV: remains tachy, reg rhythm, +S1/S2, no m/r/g.
Resp: continues to remain CTAB anteriorly, no rales, wheezes, or rhonchi. light brody mucous from trach
Skin: No rashes noted but skin exam limited as pt with contractures, difficult to roll
Neuro: spontaneous movements during exam
07/28/24 17:07 Blood/Venous Blood Culture - Preliminary
No Growth in 4 days- Final report to follow
07/28/24 16:46 Decubitis Ulcer Wound Culture - Final
S aureus-Methicillin Sensitive
Pseudomonas aeruginosa
Streptococcus pyogenes
07/28/24 16:46 Decubitis Ulcer Gram Stain - Final
07/28/24 17:07 Blood/Venous Blood Culture - Preliminary
Coagulase neg. staphylococcus
Additional testing on request
07/28/24 17:07 Blood/Venous Gram Stain - Preliminary
07/28/24 19:36 Nasal Swab Influenza Types A & B (MAYELA) - Final
Negative for Influenza A & B, NAAT
Negative results must be combined with clinical observations
and patient history.
Nucleic Acid Amplification test (NAAT)performed on the
[employer] ID NOW platform.
Sepsis, possibly related to infected decubitus ulcer:
-stage 3 R iliac and sacral PIs
-COVID/Flu NEG
-Continue Zosyn for as per ID. With exposed bone/OM that is not going to be covered, continued treatment with abx is futile as it will lead to continued antibiotic resistance and has not chance of being curative.
-Decubitus ulcer culture with MSSA, Pseudomonas, strep pyogenes
Paroxysmal Atrial Fibrillation
-Continue metoprolol and amiodarone
Anoxic Brain Injury
-Patient is bedbound and tube feeding dependent
-Continue tube feeding as per dietary recommendations
-G-J tube was clogged and exchanged by IR on 07/31/24
Multiple Stage IV Pressure Injuries
-Consult Wound Care
Anemia of Chronic Disease and Iron Deficiency Anemia
-Overall Hgb stable compare to previous
Seizure Disorder
-Continue Keppra and Valproic Acid
Functional quadriplegia
DNR/Lovenox
Pt's updated over the phone on 07/31/24. Despite pt being hospice appropriate she is not interested in hospice at this time.
Anticipated Discharge: 24 - 48 hours
Subjective/Interval History
-
Date of Service: August 02, 2024
Unresponsive.
Objective Data
-
Labs:
Laboratory Results
08/02/24
05:11
WBC 11.7 H
Hgb 9.1 L
Hct 29.4 L
Plt Count 294
Sodium 137
Potassium 4.3
Chloride 102
Carbon Dioxide 29
BUN 24 H
Creatinine 1.0
Glucose 105 H
Calcium 8.9
Vital Signs:
Vital Signs
Temp Pulse Resp BP Pulse Ox
97.6 F 78 20 120/79 100
08/02/24 07:00 08/02/24 07:00 08/02/24 07:00 08/02/24 07:00 08/02/24 09:20
I&O
08/01/24 08/02/24 08/03/24
06:59 06:59 06:59
Intake Total 160 / 160
Output Total 700 / 700 2750 / 2750
Balance -540 / -540 -2750 / -2750
[2024-08-02 15:00] VITALS: BP 108/73
[2024-08-02] MEDS: LOVENOX 40 MG SC (17:02)
[2024-08-02 18:25] LABS: Glucose - Point of Care 112 mg/dl (70-99)
[2024-08-02] MEDS: LOPRESSOR TUBE (20:31)
[2024-08-02 23:04] VITALS: BP 118/81
[2024-08-02 23:37] LABS: Glucose - Point of Care 117 mg/dl (70-99)
[2024-08-03] MEDS: ZOSYN 50 IV ×2 (01:48→08:41)
[2024-08-03 06:56] LABS: Glucose - Point of Care 116 mg/dl (70-99)
[2024-08-03 07:40] VITALS: BP 97/61
[2024-08-03 08:21] VITALS: BMI 21.0
[2024-08-03] MEDS: KEPPRA 750 MG TUBE (08:30)
[2024-08-03] MEDS: DEPAKENE 125 MG TUBE (08:32)
[2024-08-03] MEDS: LOPRESSOR TUBE (08:37)
[2024-08-03] MEDS: PACERONE 200 MG TUBE (08:40)
[2024-08-03] MEDS: SANTYL OINTMENT 1 APPLIC TOPICAL (08:42)
[2024-08-03] MEDS: DAKIN'S SOLUTION 0.125% 1/4 STRENGTH 5 ML TOPICAL (08:43)
[2024-08-03 08:50] LABS: Hematocrit 30.4 % (39.0-52.0); Hemoglobin 9.6 g/dL (13.0-18.0); Mean Corp Hgb Conc. 31.6 g/dL (33.0-37.0); Mean Corpuscular Hgb 32.4 pg (27.0-31.0); Mean Corpuscular Volume 102.7 fL (80.0-94.0); Mean Platelet Volume 9.5 fL (7.4-10.4); Platelet Count 295 10^3/uL (130-400); Red Blood Cell Count 2.96 10^6/uL (4.70-6.10); Red Cell Dist. Width 15.8 % (11.5-14.5); White Blood Cell Count 14.6 10^3/uL (4.8-10.8)
[2024-08-03 09:28] LABS: Blood Urea Nitrogen 26 mg/dl (9-20); Calcium 9.1 mg/dl (8.4-10.2); Carbon Dioxide 28 mmol/L (22-30); Chloride 102 mmol/L (98-107); Estimated Creatinine Clearance 64 ml/min; Glucose 104 mg/dl (70-99); Potassium 4.4 mmol/L (3.5-5.1); Sodium 138 mmol/L (135-145); eGFR > 60.00
--- NOTE | 2024-08-03 11:21 | W.PN.ID1 ---
Date of Service
Date of Service: August 03, 2024
Today's Communication
Continue with Zosyn (d7).
At time of discharge, transition to Augmentin 875mg tube bid and cipro 500mg tube bid through 08/10/24
Assessment / Plan
Multiple Decubitus Ulcers with skin/soft tissue infection
Contaminated Blood culture - 1 set with CONS and second set is no growth to date
Anoxic Brain Injury
PEG
Contractures
Recommendations:
- note 07/28 wound culture with s pyogenes, MSSA and Pseudomonas
- single blood culture with CONS is a contaminant
- CT a/p wounds, high stool burden - having bowel movements
Continue with Zosyn (d7).
At time of discharge, transition to Augmentin 875mg tube bid and cipro 500mg tube bid through 08/10/24
Continue local wound care.
- treating any underlying osteomyelitis without coverage of the bone is futile and would result in acquisition of progressively more resistant pathogens leaving patient in a worse position. would not be possible to offload all of his pressure
injuries particularly given contractures. Recurrent infections expected.
Patient with exceedingly poor quality of life, functionally quadriplegic, with no expectation of improvement.
Would expect recurrent hospitalizations despite maximal care.
Patient is hospice appropriate, which has been offered to family, but they have refused.
����������������������������������������������������������
Chief Complaint
-: Other (multiple decubitus ulcers)
Vital Signs / Physical Exam
Vital Signs
Vital Signs
Temp Pulse Resp BP Pulse Ox
98.2 F 99 17 97/61 97
08/03/24 07:40 08/03/24 07:40 08/03/24 07:40 08/03/24 07:40 08/03/24 07:40
Physical Exam
Constitutional: Chronically Ill, Non-toxic and Cachetic
Pulmonary: Non Labored
Gastrointestinal: Normal Bowel Sounds and Other (PEG tube in place.)
Extremities: Other (Profoundly contracted)
Wound: Other (Multiple)
Objective Data
Lab Data
Lab Results
08/03/24 07:37
08/03/24 07:37
Estimated Creat Clear 64 ml/min 08/03/24 07:37
Lactic Acid 0.8 mmol/L (0.7-2.0) 07/28/24 19:05
Total Bilirubin 0.4 mg/dl (0.2-1.3) 07/28/24 17:07
AST 19 U/L (17-59) 07/28/24 17:07
ALT 18 U/L (0-50) 07/28/24 17:07
Alkaline Phosphatase 131 U/L (38-126) H 07/28/24 17:07
Most recent labs reviewed.
Micro Results:
07/28/24 17:07 Blood Culture - Final
Blood/Venous No Growth - Final Report
07/28/24 16:46 Wound Culture - Final
Decubitis Ulcer S aureus-Methicillin Sensitive
Pseudomonas aeruginosa
Streptococcus pyogenes
Gram Stain - Final
07/28/24 17:07 Blood Culture - Preliminary
Blood/Venous Coagulase neg. staphylococcus
Additional testing on request
Gram Stain - Preliminary
07/28/24 19:36 Influenza Types A & B (MAYELA) - Final
Nasal Swab Negative for Influenza A & B, NAAT
Negative results must be combined with clinical observations
and patient history.
Nucleic Acid Amplification test (NAAT)performed on the
[employer] platform.
[2024-08-03 11:25] LABS: Glucose - Point of Care 128 mg/dl (70-99)
--- NOTE | 2024-08-03 13:11 | W.PN.HOSP.TC ---
Today's Communication/Plan
-
monitor vitals
see plan
Switch antibiotics to oral
Discussed with spouse over the phone
Discharge today
customs compliance manager made aware
Time of discharge 39 minutes
Assessment / Plan
Assessment / Plan
Gen: NAD, NCAT
Eyes: no scleral icterus
CV: remains tachy, reg rhythm, +S1/S2, no m/r/g.
Resp: continues to remain CTAB anteriorly, no rales, wheezes, or rhonchi. light brody mucous from trach
Skin: No rashes noted but skin exam limited as pt with contractures, difficult to roll
Neuro: spontaneous movements during exam
07/28/24 17:07 Blood/Venous Blood Culture - Preliminary
No Growth in 4 days- Final report to follow
07/28/24 16:46 Decubitis Ulcer Wound Culture - Final
S aureus-Methicillin Sensitive
Pseudomonas aeruginosa
Streptococcus pyogenes
07/28/24 16:46 Decubitis Ulcer Gram Stain - Final
07/28/24 17:07 Blood/Venous Blood Culture - Preliminary
Coagulase neg. staphylococcus
Additional testing on request
07/28/24 17:07 Blood/Venous Gram Stain - Preliminary
07/28/24 19:36 Nasal Swab Influenza Types A & B (MAYELA) - Final
Negative for Influenza A & B, NAAT
Negative results must be combined with clinical observations
and patient history.
Nucleic Acid Amplification test (NAAT)performed on the
[employer] ID NOW platform.
Sepsis, possibly related to infected decubitus ulcer:
-stage 3 R iliac and sacral PIs
-COVID/Flu NEG
-Switch antibiotics to p.o. per ID recommendation through 08/10/2024. With exposed bone/OM that is not going to be covered, continued treatment with abx is futile as it will lead to continued antibiotic resistance and has not chance of being curative.
-Decubitus ulcer culture with MSSA, Pseudomonas, strep pyogenes
Hospice was discussed with patient's family this admission, spouse is not ready at this time. She has contact info for palliative care/hospice.
Paroxysmal Atrial Fibrillation
-Continue metoprolol and amiodarone
Anoxic Brain Injury
-Patient is bedbound and tube feeding dependent
-Continue tube feeding as per dietary recommendations
-G-J tube was clogged and exchanged by IR on 07/31/24
Multiple Stage IV Pressure Injuries
-Consult Wound Care
Anemia of Chronic Disease and Iron Deficiency Anemia
-Overall Hgb stable compare to previous
Seizure Disorder
-Continue Keppra and Valproic Acid
Functional quadriplegia
DNR/Lovenox
Pt's updated over the phone on 08/01/24
Anticipated Discharge: Today
Subjective/Interval History
-
Date of Service: August 03, 2024
Comfortable
Objective Data
-
Labs:
Laboratory Results
08/03/24
07:37
WBC 14.6 H
Hgb 9.6 L
Hct 30.4 L
Plt Count 295
Sodium 138
Potassium 4.4
Chloride 102
Carbon Dioxide 28
BUN 26 H
Creatinine 1.0
Glucose 104 H
Calcium 9.1
Vital Signs:
Vital Signs
Temp Pulse Resp BP Pulse Ox
98.2 F 99 17 97/61 97
08/03/24 07:40 08/03/24 07:40 08/03/24 07:40 08/03/24 07:40 08/03/24 07:40
I&O
08/02/24 08/03/24 08/04/24
06:59 06:59 06:59
Intake Total 1080 / 1080
Output Total 2750 / 2750 1350 / 1350
Balance -2750 / -2750 -270 / -270
--- NOTE | 2024-08-03 13:11 | W.PN.PAL2 ---
Today's Communication
-
Palliative care follow up: Spoke with over the phone. discussed palliative care and hospice services. reviewed concern that infections will be recurrent and wounds will not completely heal. She is struggling with discussions about goals of care
as they have been fighting so hard over past 3 years, but she knows it is getting worse. encouraged her to discuss with family about hospice given situation. she is interested in outpatient palliative care. she reports she is established with [facility] and believes they have palliative services as well. if thats the case would use palliative with [facility], if not she knows that we would be happy to see in the home as well. palliative care services discussed.
Patient unable to communicate in during visit.
Total time on floor/discussion with family 20 mins
Assessment / Plan
-
Assessment/Plan:
not ready yet to consider hospice
Discussed palliative care, interested in [facility] care program as established with them for [facility]
Reason for Admission
Illness Course/HPI
58 year old M with history of an anoxic brain injury 2/2 cardiac arrest, multiple pressure wounds, afib admitted with persistent fevers at home. Went to ED 1 day prior to arrival with fevers - infectious workup with xray and UA negative and sent
home. Fevers persistent and brought back for further workup. Concern for possible wound infection. Wound culture with VRE, blood cultures positive. ID consult pending.
Multiple hospitalizations over the previous months for infections. Lives at home with and 24/7 caregivers per chart review.
Goals of Care Discussion
-
Patient able to participate in discussion at time of visit: No
Pain & Symptom Assessment
-
patient unable to provide ros
Objective Data
-
Objective Data:
Vital Signs
Temp Pulse Resp BP Pulse Ox
98.2 F 99 17 97/61 97
08/03/24 07:40 08/03/24 07:40 08/03/24 07:40 08/03/24 07:40 08/03/24 07:40
Laboratory Results
08/03/24 07:37
08/03/24 07:37
Total Protein 6.6 g/dl (6.3-8.2) 07/28/24 17:07
Albumin 3.0 g/dl (3.5-5.0) L 07/28/24 17:07
Palliative Performance Scale
Palliative Performance Scale:
PPS Level Ambulation Activity & Evidence of Disease Self Care Intake Conscious Level
100% Full Normal Activity & Work; Full Intake Full
No Evidence of Disease
90% Full Normal Activity & Work; Full Normal Full
Some Evidence of Disease
80% Full Normal Activity with Effort Full Normal or Full
Some Evidence of Disease Reduced
70% Reduced Unable Normal Job/Work Full Normal or Full
Significant Disease Reduced
60% Reduced Unable Hobby/Housework Occasional Normal or Full or Confusion
Significant Disease Assistance Reduced
50% Mainly Sit/Lie Unable to do Any Work Considerable Normal or Full or Confusion
Extensive Disease Assistance Req'd Reduced
40% Mainly in Bed Unable to do Most Activity Mainly Assistance Normal or Full or Drowsy;
Extensive Disease Reduced +/- Confusion
30% Totally Bed Unable to do Any Activity Total Care Normal or Full or Drowsy;
Bound Extensive Disease Reduced +/- Confusion
20% Totally Bed Bound Unable to do Any Activity Total Care Minimal to Full or Drowsy;
Extensive Disease Sips +/- Confusion
10% Totally Bed Bound Unable to do Any Activity Total Care Mouth Care Drowsy or Coma;
Extensive Disease Only +/- Confusion
0%
PPS Score Level:
--- NOTE | 2024-08-03 13:28 | W.DCSUMMARY ---
Discharge Summary
Discharge Data
Date of Admission: 07/28/24
Date of Discharge: 08/03/24
-
Pending Results: No
Hospital Course
58-year-old male with past medical history of decubitus ulcer, paroxysmal atrial fibrillation, anoxic brain injury with functional quadriplegia, GJ tube, multiple stage IV pressure injuries, seizure disorder, anemia of chronic disease came to the
hospital with sepsis secondary to infected decubitus ulcer. Patient was seen by infectious disease and was initially started on IV antibiotics. Culture from decubitus ulcer grew MSSA, Pseudomonas and strep pyogenes. Patient does have bedbound
status and given his sacral ulcers, did not appear his ulcers will be completely resolved. Hospice was also discussed however family wanted to hold off on hospice at this time. Patient was deemed very high risk of readmission due to his
quadriplegia and bedbound status with multiple sacral ulcers. While he was here, his GJ tube was also clogged so IR have replaced the GJ tube this hospitalization. Patient was able to tolerate tube feeding prior to discharge. Once his symptoms
continue to improve, his antibiotics was then transition to oral prior to discharge. On discharge instructed to follow-up with all his physicians outpatient.
Discharge Plan
-
Patient Disposition: Home with Home Care
Discharge Diagnosis/Procedures: Sepsis, possibly related to infected decubitus ulcer:
stage 3 R iliac and sacral PIs
Anoxic brain injury
Functional quadriplegia
G-J tube was clogged and exchanged by IR on 07/31/24
Diet: Tube feeding
Activity: With assistance and As tolerated
Driving Restrictions: No driving
Activity Restrictions/Additional Instructions:
Wound Care Instructions
Wound Care Instructions
R lateral elbow: clean with saline, Santyl, adaptic and dry
dressing daily. Increase off-loading to right elbow with air cushion during turning and repositioning
R hip, R medial leg, sacrum and b/l Iliac crests: Clean with saline, skin prep
periwound, Santyl to necrotic areas followed by Dakin's moistened gauze and dry
dressing. Change daily and prn drainage.
L elbow, heels, right lateral foot: skin prep and adhesive foams change q 3 days and prn
soilage.
Left 2nd amputated toe- Clean and apply adaptic and dry dressing daily
Miconazole powder to buttocks/groin/back
Air mattress with turning schedule
Padding btw knees and heels
Follow up at wound care center call for an appointment.
Referrals:
UNKNOWN,NO INTERVIEW [Family Provider] - in less than 1 week
Prescriptions:
New
ciprofloxacin HCl 500 mg Tablet
500 mg feeding tube BID Qty: 16 0RF
amoxicillin-pot clavulanate 875-125 mg Tablet
1 tab feeding tube Q12 Qty: 16 0RF
Dakin's Solution 0.125 % Solution
1 applic topical DAILY Qty: 473 0RF
miconazole nitrate [Miconazorb AF] 2 % Powder
1 applic topical PRN PRN (Reason: soilage/drainage) Qty: 85 0RF
Probiotic 10 billion cell capsule
10,000 mmu cells feeding tube DAILY Qty: 10 0RF
Continued
atorvastatin 40 MG tablet
40 mg feeding tube HS
acetaminophen 325 MG tablet
650 mg feeding tube Q4HPRN PRN (Reason: mild pain, temp>100.4)
albuterol sulfate 2.5 MG/3 ML solution for nebulization
2.5 mg inhalation R [id number] PRN (Reason: sob)
amiodarone [Pacerone] 200 MG tablet
200 mg feeding tube DAILY
ascorbic acid (vitamin C) [Vitamin C] 500 mg Tablet
500 mg feeding tube DAILY
valproic acid (as sodium salt) 250 mg/5 mL Solution
125 mg feeding tube BID
ferrous sulfate 300 mg (60 mg iron)/5 mL Liquid
300 mg feeding tube BID
levetiracetam [Keppra] 100 mg/mL Solution
750 mg feeding tube BID
ProSource 7.5 gram Packet
1 packet PO DAILY
Jose (with collagen) 7-7-1.5 gram Powder In Packet
1 packet PO DAILY
Santyl 250 unit/gram Ointment
1 applic TOPICAL DAILY
H-Chlor 12 0.125 % solution
1 applic topical DAILY
metoprolol tartrate 25 mg Tablet
25 mg feeding tube Q12 30 Days Qty: 60 0RF
Discharge Orders:
Discharge Patient (As Directed); Ordered 08/03/24
Ordered By: Silvano Lobato
Discharge Date and Time
Discharge Date/Time: 08/03/24 16:29
Print Language: CENTRAL AFRICAN
--- NOTE | 2024-08-03 14:00 | CM ---
Addendum entered by Laisha Wood 08/03/24 14:22:
CM spoke with , Karyna, discussed plan for discharge, 4 steps to enter but have a ramp in the home. Reviewed IMM, agreeable to discharge, placed in chart.
Original Note:
CM reviewed chart, patient for discharge today. Patient will require ambulance transport- voicemail left for patients to confirm home address, steps into the home, and review IMM. Update to Andie to add Palliative Care onto referral, spoke
with Vesta. Clinicals faxed to [facility] for tube feeds. CM will continue to follow for all discharge planning needs.
Plan; return home with , caregivers, Andie BENJAMIN, [facility] health
[phone]

[facility] for tube feeds
[2024-08-03] MEDS: AUGMENTIN 875 MG/125 MG 1 TABLET TUBE (14:07)
[2024-08-03] MEDS: CIPRO 500 MG TUBE (14:07)
[2024-08-03 15:24] VITALS: BP 110/77
--- NOTE | 2024-08-03 16:18 | PTCARENOTE ---
Copy of patient's d/c instructions provided to ambulance transport. Patient unable to sign and is non verbal.
== END 2024-08-03 16:29 | disposition home health service (06) | DRG 871 ==
LOC: 4 WEST ACU 19:52
PROVIDERS: Internal Medicine; Internal Medicine Infectious Disease; Physician Assistant Medical; Radiology Diagnostic Radiology; ADMITTING PHYSICIAN Internal Medicine; ATTENDING PHYSICIAN Internal Medicine; EMERGENCY PHYSICIAN Emergency Medicine; OTHER PHYSICIAN Student in an Organized Health Care Education/Training Program
PROC: 0D2DXUZ Change Feeding Device in Lower Intestinal Tract, External Approach (ICD-10-PCS; 2024-07-31)
DX: A41.1 Sepsis due to other specified staphylococcus (principal); E43 Unspecified severe protein-calorie malnutrition; L89.154 Pressure ulcer of sacral region, stage 4; L89.214 Pressure ulcer of right hip, stage 4; L89.014 Pressure ulcer of right elbow, stage 4; L89.894 Pressure ulcer of other site, stage 4; R53.2 Functional quadriplegia; K94.23 Gastrostomy malfunction; Z66 Do not resuscitate; G40.909 Epilepsy, unspecified, not intractable, without status epilepticus; D50.9 Iron deficiency anemia, unspecified; D63.8 Anemia in other chronic diseases classified elsewhere; I48.0 Paroxysmal atrial fibrillation; K21.00 Gastro-esophageal reflux disease with esophagitis, without bleeding; K22.2 Esophageal obstruction; E16.2 Hypoglycemia, unspecified; Z86.16 Personal history of COVID-19; Z86.69 Personal history of other diseases of the nervous system and sense organs; Z74.01 Bed confinement status; Z86.74 Personal history of sudden cardiac arrest; Z79.899 Other long term (current) drug therapy; Z68.24 Body mass index [BMI] 24.0-24.9, adult; Z89.422 Acquired absence of other left toe(s); Z11.52 Encounter for screening for COVID-19
CPT/HCPCS: 49452; 71045; 74177; 80048; 80053; 80202; 81003; 81015; 82962; 83605; 85025; 85027; 87040; 87070; 87077; 87086; 87147; 87186; 87205; 87502; 87811; 96365; 99285; C1769; Q9967

== ENCOUNTER 2024-08-18 22:21 | Inpatient (IN) | payer MEDICARE, OTHER, SELFPAY ==
[2024-08-18 19:08] VITALS: BP 133/73
[2024-08-18 19:15] VITALS: BMI 18.7
--- NOTE | 2024-08-18 19:30 | ED.GENMED ---
History of Present Illness
General
Chief Complaint: Fever
Source: other (nURSING)
Exam Limitations: non verbal-adult
Time Seen by Provider: 08/18/24 19:09
History of Present Illness
History of Present Illness:
This is a 58 year old male that is brought in by ambulance with c/o fever. Patient was discharged from the hospital on the with Sepsis due to Cellulitis. Patient return tonight with fever and a blocked feeding tube. Called and spoke with
patient . States that he started with a fever this morning of 99-101.5. States that he was coughing more today. State that the Feeding tube J port is clogged. States that this has helped with decreasing his aspiration Pneumonia. States that he
has not had a BM in 3 days but prior to this he had a large stool that was about 5 days worth all in the one day. States that last night she was able to use his J port on the feeding tube but this was running slow. States that by the morning it was
blocked. States that otherwise this is his normal self. Denies any nausea, vomiting, diarrhea.
Past History
Past History
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
ulcers) and Other (Iron def anemia, Fracture clavicle)
ED Past Surgical History: Appendectomy, Orthopedic and Other (Feeding tube, Prior trach with removal)
Social History
Tobacco: Non-smoker
Alcohol: Occasional
Drug: None
Personal:
Living: with family
Employment: Disabled
Family History
Family History: Other ( sick)
Review of Systems
Review of Systems
Unable to obtain full review of systems at this time due to: non-verbal
Other source history: family
Constitutional: Reports fever
EENT: Reports no symptoms
Respiratory: Reports cough; Denies trouble breathing
Cardiac: Reports no symptoms
ABD/GI: Reports other (No BM in the past 3 days); Denies nausea, vomiting or diarrhea
: Reports other (Wears a condom catheter)
Musculoskeletal: Reports other (Contractures of the arms and legs. )
Skin: Reports other (Chronic decubs)
Neurological: Reports no symptoms
Psychiatric: Reports no symptoms
Phy Exam
General Physical Exam
General Presentation: no apparent distress
General age: appears older than age
General Skin: warm
General Habitus: debilitated and frail
General Mental: other (Eyes open but does not follow commands)
General Hydration: dry mucous membranes
General Chronic Disability: contractures (arms and legs)
ENT Exam
ENT Exam: TM's normal
Cardiovascular Exam
Cardiovascular Exam: tachycardia and other (Murmur)
Pulmonary Exam
Pulmonary Exam: no respiratory distress, chest non tender, no wheezing and other (Rales 1/2 up the right, Left clear)
Gastrointestinal Exam
Gastrointestinal Exam: normal bowel sounds, non tender (appears nontender as no grimacing ), soft, no organomegaly, no pulsatile mass and non distended
Musculoskeletal Exam
Musculoskeletal Exam: no edema and other (arms and leg contacted , Multiple toes and parts of toes amputated. )
Skin Exam
Skin Exam: normal color, warm/dry, no petechia and other (4 Decubitus ulcers on the buttocks and sacral area. Decub on the right hip, Open wound right lateral elbow 1cm in length. Open wound on the right lower leg)
Psychiatric Exam
Psychiatric Exam: normal mood/affect (Nonverbal, No eye contact)
Sepsis
Sepsis Screening
Sepsis Assessment: Sepsis Ruled Out
Sepsis Screen
Sepsis Screen: Sepsis Ruled Out
Date: 08/19/24
Time: 04:04
Course
Orders/Labs/Results
Orders:
Orders
08/18/24 19:12
Acetaminophen [Tylenol/Feverall] 650 mg .ROUTE .STK-MED ONE
08/18/24 19:14
Acetaminophen [Tylenol/Feverall] 650 mg RECTAL NOW STA
08/18/24 19:27
0.9% Sodium Chloride 1000 ml [Nss] 1,000 ml IV BOLUS
Acetaminophen 1000MG/100Ml [Ofirmev] 1,000 mg in 100 ml IV ONCE
Acetaminophen IV Indication:: ED Narcotic Naive Pt-ONCE
08/18/24 19:29
CR Chest Portable - 1 View Urgent
Comment:
Reason For Exam: fEVER
Reason Study Needs to be Portable: Unable to Transport
08/18/24 19:54
Complete Blood Count/With Diff Urgent
Comprehensive Metabolic Panel Urgent
Lactic Acid Q4H
Comment: CANCEL 2nd LACTIC ACID IF 1st LACTIC ACID IS LESS THAN 2
Urinalysis Reflex To Culture Urgent
Date Specimen was Collected: 08/18/24
Time Specimen was Collected: 19:38
Urine Microscopic Reflex Cult Urgent
Blood Culture Urgent
JOHANA Source: Blood/Venous
Specimen Description:
Urine Culture Urgent
JOHANA Source: U
Specimen Description:
Date Specimen was Collected: 08/18/24
Time Specimen was Collected: 19:38
08/18/24 20:48
Cefepime HCl [Maxipime] 2,000 mg IV NOW STA
08/18/24 20:50
Vancomycin [Vancocin] 1,500 mg 0.9% Sodium Chloride 500 ml [Nss] 500 ml IV NOW
08/18/24 21:32
COVID-19 Antigen Urgent
Source: Nasal Swab
08/18/24 21:33
Influenza A+B Rapid Molecular Urgent
JOHANA Source: Nasal Swab
Specimen Description:
08/18/24 21:59
Admit/Transfer Patient As Directed
Co-Sign Provider:
Level of Care: Inpatient admission
Assign to:: Telemetry
Physician / Group: Conner
Diagnosis: Sepsis
Reason for Telemetry: Arrhythmia
Date to Stop Telemetry: 08/21/24
Time to Stop Telemetry: 11:00
Reason for Hospitalization: IV abx
Expected length of stay greater than two midnights?: Yes
ELOS- Estimated Length of Stay in days: 3
I certify the patient meets the requirements for IP care: Yes
08/18/24 22:00
PRN Pain Medication Management As Directed
May give lesser potent ordered pain med per pt: Yes
preference::
Protocol:: Medication orders for pain may be administered in a
manner that supports deferring to patient preference
when the pt is:
- Requesting an ordered lesser potent pain medication.
Least to most potent pain medications are defined
as: acetaminophen < NSAID < tramadol < opioids
(morphine, oxycodone, hydromorphone).
- Requesting a lesser dose of the same medication IF
ORDERED.
- Requesting a less intrusive route of administration
if both routes are prescribed by the provider (PO <
IV).
08/18/24 22:01
Code Status As Directed
Resuscitation Status: Do not resuscitate
Reached after discussion with pt or family/Healthcare POA: Yes
DNR Bracelet Application ONCE
08/18/24 22:17
Blood Culture Urgent
JOHANA Source: Blood/Venous
Specimen Description:
08/18/24 22:19
Wound Culture [Wound/Abscess/Other Culture] Urgent
JOHANA Source: Sacral
Specimen Description:
Date Specimen was Collected: 08/18/24
Time Specimen was Collected: 22:17
Comment: Lowest and largest of the four
08/19/24 02:05
Acetaminophen [Tylenol/Feverall] 650 mg RECTAL Q4HPRN PRN
Albuterol Nebs [Ventolin Nebules] 2.5 mg INH R Q4HPRN PRN
Dextrose 5%/0.9%Sodchl 1000 ml [D5/0.9% Sodium Chloride] 1,000 ml IV 80 mls/hr
Metoprolol [Lopressor] 5 mg IV Q6HPRN PRN
Piperacillin/Tazo 3.375 Gram [Zosyn] 3.375 gram in 50 ml IV Q6H
VANCOMYCIN Pharmacy to Dose [VANCOCIN Pharmacy to Dose] 1 each Pharmacy To Prepare [Call Pharmacy To Prepare] 0 ml IV PER PROTOCOL
08/19/24 02:05
Consult Notification Routine
Specialty to Notify: IRAD (Interventional Radiology)
Consult Notification Routine
Specialty to Notify: Infectious Disease
INFECTIOUS DISEASE CONSULT Routine
Consulting Provider: Leslee Rae
Was physician already notified: No
Reason for consult: Sepsis, Recurrent Wound Infections
IRAD CONSULT Routine
Consulting Provider: Bipin Vu
Was physician already notified: No
Reason for Consult/Procedure: Clogged GJ Tube
Acknowledgement that appropriate orders are entered: N/A
WOUND/OSTOMY CONSULT Routine
Reason for Consult: multiple decubitus wounds
Activity As Directed
Activity Level: Bedrest
I&O [Intake/ Output] As Directed
Frequency: q12h
Vital Signs As Directed
Frequency: Per unit guidelines
Weight As Directed
Frequency: Daily
DX Deep Vein Thrombosis Video Routine
08/19/24 Breakfast
NPO
Allow oral meds: No
Allow clear liquids: No
NPO with Ice Chips: No
Basic Metabolic Panel IN AM
Complete Blood Count/No Diff IN AM
08/19/24 08:00
Levetiracetam Injectable [Keppra] 750 mg IV Q12
08/19/24 18:00
Enoxaparin Sodium [Lovenox] 40 mg SC QPM
08/21/24 11:00
DC Protocol for Telemetry ONCE
Abnormal Lab Results
08/18/24
19:54
WBC 13.3 H 10^3/uL
(4.8-10.8)
RBC 3.00 L 10^6/uL
(4.70-6.10)
Hgb 9.7 L g/dL
(13.0-18.0)
Hct 29.7 L %
(39.0-52.0)
MCV 99.0 H fL
(80.0-94.0)
MCH 32.3 H pg
(27.0-31.0)
MCHC 32.7 L g/dL
(33.0-37.0)
RDW 15.9 H %
(11.5-14.5)
Absolute Neuts (auto) 10.3 H 10^3/uL
(1.4-6.5)
Absolute Monos (auto) 1.0 H 10^3/uL
(0.1-0.6)
Neutrophils % 77.3 H %
(42.2-75.2)
Lymphocytes % 9.1 L %
(20.5-51.1)
Sodium 131 L mmol/L
(135-145)
Chloride 95 L mmol/L
(98-107)
BUN 27 H mg/dl
(9-20)
Albumin 3.1 L g/dl
(3.5-5.0)
Leukocyte Esterase Rfl 2+ A
(Negative)
Urine RBC 3-6 A /HPF
(0-2)
Urine WBC (Reflex) 16-20 A /HPF
(0-5)
Urine Bacteria (Reflex) Moderate A
(Negative)
08/18/24 19:54
08/18/24 19:54
Leukocytosis. H/H low. Anemia, Sodium slightly low Chloride low Dehydration. Albumin slighlty low. Urine questionable, would wait for Culture to treat, COVID and Influenza negative. Lactic acid normal at 1.1-
Vital Signs
Initial and Last Documented VS:
Initial Vital Signs
Temp Pulse Resp BP Pulse Ox
101.5 F H 111 26 133/73 96
08/18/24 19:08 08/18/24 19:08 08/18/24 19:08 08/18/24 19:08 08/18/24 19:08
Last Documented Vital Signs
Temp Pulse Resp BP Pulse Ox
98.9 F 77 23 136/50 94
08/18/24 23:00 08/19/24 02:00 08/18/24 19:18 08/19/24 02:00 08/19/24 02:00
MDM/Problems Addressed
Differential Diagnosis Includes:
Sepsis, UTI, PNA Blocked Jejunum/Gastric tube
MDM/Problems Addressed:
This is a 58 year old male that is brought in by ambulance form home with c/o fever and blocked feeding tube. Spoke with . States that she uses the J-port on the feeding tube as this has cut down on his aspiration Pneumonia. States that this is
blocked and she can't get it to work. States that he also started with a fever today of 99.0-101.5. States that his cough has increased today.
Will check labs, Chest x-ray, Urine. Will need to admit due to blocked J/G tube.
Chronic conditions affecting care:
Chronic decub, Nonambulatory, Nonverbal,
Acute Exacerbation and/or Progression of Chronic Illness:
Chronic decub, Nonambulatory, Nonverbal,
*Radiology
Radiology exam reviewed: radiology read reviewed (Chest-Extremely low llung volumes are noted. There is minimal right lung opacity which could represent subseqmental atelectasis and/or Pneumonia. The heart is stable in size and configuration. )
*Pulse Oximetry
Patient hypoxic: no
*EKG
Interpreted by ED Provider?: NA
Rate: EKG- N/A
*Poured Wall Foreman Interpretation
Rate: tachycardiac
Heart Rate: 116
Rhythm: sinus tachycardia
*Critical Care Note
Total Time (30-74mins, 75-104mins- exclusive of procedures): Not Applicable
ED Attending Note
-
Portions of this chart may have been created with voice recognition software.� Occasional wrong word or��sound alike� substitutions may have occurred due to the inherent limitations of voice recognition software.
Discharge Plan
Departure
Patient Disposition: Admit
Date of Disposition: 08/18/24
Time of Disposition: 20:52
Admit to: Telemetry
Presentation/result/management discussed w/ accepting MD/DO: Hospitalist
Patient with high blood pressure during this ER visit?: Yes
Condition: Fair
Covid-19: Not Applicable
Discharge Problem:
Fever, Right lower lobe pneumonia, Feeding tube blocked
Interventions
Interventions:
*Risk Screen - Suicide Last Done: 08/18/24 22:42
*General Assessment Last Done: 08/18/24 19:18
*Neglect/Abuse Screening Last Done: 08/18/24 19:18
ED- Fall Risk Assessment Last Done: 08/18/24 19:30
*ED COVID-19 Vaccine History Last Done: 08/18/24 19:18
ED- Neurological Assessment Last Done: 08/18/24 19:30
ED-Skin Assessment Last Done: 08/18/24 19:30
[2024-08-18 20:00] VITALS: BP 127/72
[2024-08-18] MEDS: NSS 1000 IV (20:00)
[2024-08-18] MEDS: OFIRMEV 100 IV (20:00)
[2024-08-18 20:18] LABS: Urine Albumin Trace (Neg - Trace); Urine Bilirubin Negative (Negative); Urine Character Slightly Cloudy (Clear); Urine Color Yellow; Urine Glucose Negative (Negative); Urine Ketone Negative (Negative); Urine Leukocyte 2+ (Negative); Urine Nitrite Negative (Negative); Urine Occult Blood Negative (Negative); Urine Urobilinogen Negative (Neg - 1+)
[2024-08-18 20:19] LABS: % Basophils 0.6 % (0-2); % Eosinophils 5.4 % (0-6); % Immature Granulocytes 0.3 % (0-0.5); % Lymphocytes 9.1 % (20.5-51.1); % Monocytes 7.3 % (1.7-9.3); % Neutrophils 77.3 % (42.2-75.2); Absolute Basophils 0.1 10^3/uL (0-0.2); Absolute Eosinophils 0.7 10^3/uL (0-0.7); Absolute Lymphocytes 1.2 10^3/uL (1.2-3.4); Absolute Neutrophils 10.3 10^3/uL (1.4-6.5); Hematocrit 29.7 % (39.0-52.0); Hemoglobin 9.7 g/dL (13.0-18.0); Mean Corp Hgb Conc. 32.7 g/dL (33.0-37.0); Mean Corpuscular Hgb 32.3 pg (27.0-31.0); Mean Platelet Volume 9.6 fL (7.4-10.4); Nucleated Red Blood Cells % 0 % (-); Platelet Count 278 10^3/uL (130-400); Red Cell Dist. Width 15.9 % (11.5-14.5); White Blood Cell Count 13.3 10^3/uL (4.8-10.8)
[2024-08-18 20:20] LABS: Lactic Acid 1.1 mmol/L (0.7-2.0)
[2024-08-18 20:30] LABS: ALT (SGPT) 14 U/L (0-50); AST (SGOT) 26 U/L (17-59); Albumin 3.1 g/dl (3.5-5.0); Alkaline Phosphatase 125 U/L (38-126); Blood Urea Nitrogen 27 mg/dl (9-20); Calcium 9.8 mg/dl (8.4-10.2); Carbon Dioxide 30 mmol/L (22-30); Chloride 95 mmol/L (98-107); Estimated Creatinine Clearance 58 ml/min; Glucose 87 mg/dl (70-99); Potassium 4.7 mmol/L (3.5-5.1); Sodium 131 mmol/L (135-145); Total Bilirubin 0.5 mg/dl (0.2-1.3); Total Protein 6.8 g/dl (6.3-8.2); eGFR > 60.00
[2024-08-18 21:00] VITALS: BP 119/68
[2024-08-18 21:06] LABS: Urine Amorphous Seen; Urine Squamous Cell >30 /LPF (Few)
[2024-08-18 21:08] LABS: Urine Bacteria Moderate (Negative); Urine White Cell 16-20 /HPF (0-5)
--- NOTE | 2024-08-18 21:16 | HPS.HSE ---
Addendum entered and electronically signed by Efrain Prieto DO 08/18/24 23:02:
Patient seen and examined independently. Agree with findings and plan as set forth by Tiffanie Alva PA-C.
Patient is a 58y M with PMH significant for anoxic brain injury, severe debilitation, contractures, multiple wounds, etc who presents to ED for evaluation of fever. Patient is non-verbal at baseline. reported that his feeding tube has been
difficult to use off-and-on over the past few days. Today she could not flush his J-tube port at all. Patient is unable to contribute further to this history. Examination is remarkable for multiple wounds in various stages with purulent and
malodorous drainage and surrounding erythema - especially involving wounds of the low back /R iliac crest area.
Ass:
Sepsis - Multiple Potential Sources
Multiple Wounds / Ulcerations
G-J Tube Malfunction
Suspected Aspiration
Anoxic Brain Injury with Aphasia, Profound Contractures
Paroxysmal Atrial Fibrillation
Chronic Iron Deficiency Anemia
Seizure Disorder
Plan:
Admit for further evaluation and treatment.
Suspect skin / wounds are primary source of sepsis.
? component of aspiration pneumonia / pneumonitis.
IV abx for now.
Wound Care and ID evaluations for additional recommendations.
IR eval for G-J tube assessment and intervention. Hold feed / PO meds for now.
Continue Keppra IV for now.
Continue oxygen supplementation via trach collar.
Follow for any clinical changes.
Follow up any available culture data.
Overall long-term prognosis is dismal.
Original Note:
Family Physician
-
Family Physician: NO INTERVIEW UNKNOWN
Chief Complaint
-
Fever
History of Present Illness
Patient is a 58 y/o male past medical history of anoxic brain injury, atrial fibrillation, multiple pressure injuries and multiple hospitalizations for recurrent infections who presents with fever. Patient is unable to provide any history therefore
history obtained from review of emergency department documentation, and prior hospital records. Patient developed fevers today. also noted his feeding tube is clogged.
Medical History
Past Medical History
Past Medical History: Reports Other
Additional Past Medical History:
Paroxysmal Atrial Fibrillation
Anoxic Brain Injury
Multiple Stage IV Pressure Injuries
Anemia of Chronic Disease and Iron Deficiency Anemia
Seizure Disorder
Esophagitis / Esophageal Ring
Past Surgical History: Reports Other
Additional Past Surgical History:
Appendectomy
Tonsillectomy
Social History
Unable to obtain full social history at this time due to: Patient Non-verbal
Living: With Family
Family History
Family History: Unable to Obtain
Allergies / Home Medications
Allergies reflects when Allergies were last updated in [email or web address].
Home Medications with original date entered in [email or web address]
Allergy/Medication List:
Allergies
Allergy/AdvReac Type Severity Reaction Status Date / Time
phenobarbital Allergy Unknown Verified 08/18/24 19:08
Home Medications
acetaminophen 325 mg tablet 650 mg feeding tube Q4HPRN PRN mild pain, temp>100.4 12/30/21
albuterol sulfate 2.5 mg/3 mL (0.083 %) solution for nebulization 2.5 mg inhalation R [id number] PRN sob 12/30/21
amiodarone 200 mg tablet (Pacerone) 200 mg feeding tube DAILY AFIB 12/30/21
atorvastatin 40 mg tablet 40 mg feeding tube HS High cholesterol 12/30/21
ascorbic acid (vitamin C) 500 mg tablet (Vitamin C) 500 mg feeding tube DAILY Supplement 06/12/24
ferrous sulfate 300 mg (60 mg iron)/5 mL oral liquid 300 mg feeding tube BID Supplement 06/12/24
levetiracetam 100 mg/mL oral solution (Keppra) 750 mg feeding tube BID Neurological Condition 06/12/24
valproic acid (as sodium salt) 250 mg/5 mL oral solution 125 mg feeding tube BID Neurological Condition 06/12/24
collagenase clostridium histo. 250 unit/gram topical ointment (Santyl) 1 applic topical DAILY Infection 07/06/24
metoprolol tartrate 25 mg tablet 25 mg feeding tube Q12 Blood pressure 30 days #60 tabs 07/10/24
Lactobacillus acidophilus 10 billion cell capsule (Probiotic) 10,000 mmu cells feeding tube DAILY #10 caps 08/03/24
sodium hypochlorite 0.125 % solution (Dakin's Solution) 1 applic topical DAILY #473 mL 08/03/24
miconazole nitrate 2 % topical powder (Miconazorb AF) 1 applic topical DAILYPRN PRN soilage/drainage 08/18/24
Review of Systems
-
Unable to obtain full review of systems at this time due to: Patient Non-verbal
Physical Exam
Vital Signs
Vital Signs
Temp Pulse Resp BP Pulse Ox
101.5 F H 111 26 133/73 96
08/18/24 19:08 08/18/24 19:08 08/18/24 19:08 08/18/24 19:08 08/18/24 19:08
Physical Exam
General: Appears Chronically Ill and Cachectic
HEENT: Tracheostomy Collar (Dried mucous around tracheostomy site) and Other (Dry Mucous Membranes)
Respiratory: Rhonchi (Diffuse)
Cardiac: S1/S2, Regular Rhythm and Tachycardia
GI: Soft, Non Tender and Other (GJ Tube site appears clean)
Rectal: Deferred by Provider
Musculoskeletal: Other (Severe contractures of all four extremities)
Skin: Decubitus Ulcers (Reviewed pictures from prior admission; Wounds appears much worse than previous with foul smelling drainage noted)
Neuro: Other (Eyes slightly open but does not follow commands)
Psych: Calm
Laboratory Results
-
08/18/24 19:54
08/18/24 19:54
Laboratory Results
Lactic Acid 1.1 mmol/L (0.7-2.0) 08/18/24 19:54
Total Bilirubin 0.5 mg/dl (0.2-1.3) 08/18/24 19:54
AST 26 U/L (17-59) 08/18/24 19:54
ALT 14 U/L (0-50) 08/18/24 19:54
Alkaline Phosphatase 125 U/L (38-126) 08/18/24 19:54
Data Reviewed
-
Diagnostic Radiology: Report Reviewed by me
Lab Data: Labs Reviewed by me
Old Records: Reviewed
Impression/Plan
-
Sepsis likely secondary to Recurrently Infected Decubitus Wounds
-Consult Infectious Disease
-Continue empiric Vancomycin and Zosyn
Clogged GJ Tube
-Hold Tube Feeding
-Consult IR for possible exchange
Multiple Stage IV Pressure Injuries
-Consult Wound Care
Anoxic Brain Injury
-Patient is bedbound and tube feeding dependent
-Continue tube feeding as per dietary recommendations once GJ tube unclogged/exchanged
Paroxysmal Atrial Fibrillation
-Hold amiodarone and metoprolol until able to use GJ tube
-Will use Lopressor IV as needed for elevated heart rate
Anemia of Chronic Disease and Iron Deficiency Anemia
-Overall Hgb stable compare to previous
Seizure Disorder
-Transition to IV Keppra
-Valproic Acid dose is quite low and is likely for mood stabilization - Will resume valproic acid via tube when able
DVT proph: Lovenox
Code Status: DNR
[2024-08-18 21:57] LABS: COVID-19 Antigen Negative (Negative)
[2024-08-18 22:00] VITALS: BP 122/67
[2024-08-18] MEDS: MAXIPIME 2000 MG IV (22:00)
[2024-08-18] MEDS: VANCOCIN 530 MG IV (22:32)
[2024-08-18 23:00] VITALS: BP 111/69
[2024-08-19] VITALS (16 sets, daily range): BP systolic 91–151; BP diastolic 50–78; BMI 18.7; BMI 19.2
[2024-08-19] MEDS: ZOSYN 50 IV ×2 (02:50→08:39)
[2024-08-19] MEDS: D5/0.9% SODIUM CHLORIDE 1000 IV (03:41)
[2024-08-19 05:08] LABS: Hematocrit 28.9 % (39.0-52.0); Hemoglobin 9.2 g/dL (13.0-18.0); Mean Corp Hgb Conc. 31.8 g/dL (33.0-37.0); Mean Corpuscular Hgb 32.4 pg (27.0-31.0); Mean Corpuscular Volume 101.8 fL (80.0-94.0); Mean Platelet Volume 9.6 fL (7.4-10.4); Platelet Count 227 10^3/uL (130-400); Red Blood Cell Count 2.84 10^6/uL (4.70-6.10); Red Cell Dist. Width 15.8 % (11.5-14.5); White Blood Cell Count 9.5 10^3/uL (4.8-10.8)
[2024-08-19 05:31] LABS: Blood Urea Nitrogen 25 mg/dl (9-20); Calcium 9.1 mg/dl (8.4-10.2); Carbon Dioxide 28 mmol/L (22-30); Chloride 101 mmol/L (98-107); Estimated Creatinine Clearance 49 ml/min; Glucose 88 mg/dl (70-99); Potassium 4.5 mmol/L (3.5-5.1); Sodium 137 mmol/L (135-145); eGFR > 60.00
[2024-08-19] MEDS: KEPPRA 750 MG IV (08:40)
--- NOTE | 2024-08-19 08:46 | PHA.VAN.IN ---
Assessment
- Assessment
Renal Function: Appears elevated from baseline (SCR 1.3 vs ~0.9)
Concomitant Antimicrobials: piperacillin/tazobactam
Plan
- Plan
Initial / Loading Dose: 1500mg - 08/18 22:32
Maintenance Regimen: dosing by level - will give 500mg x1 today
Monitoring: random 08/20 0600
Pharmacokinetics Vancomycin I
- -
Patient Age: 58
Patient Sex: Male
Vancomycin Day #: 1
Indication: Other
Requesting Provider: Sara Alva
Pertinent Antimicrobial Allergies:
no pertinent antibiotic allergies
Height / Weight:
Height 5 ft 9 in
Actual Weight 57.5 kg
IBW in k.7
Pertinent Past Medical History: BMI ~18.7, Anoxic brain injury (GJ tube)
- Vital Signs / Lab Results
Temp Pulse Resp BP Pulse Ox
98.9 F 79 23 141/73 97
08/18/24 23:00 08/19/24 07:00 08/18/24 19:18 08/19/24 07:00 08/19/24 05:47
Lab Results - Hematology
08/18/24 08/19/24
19:54 04:51
WBC 13.3 H 9.5
Lab Results - Chemistry
08/18/24 08/19/24
19:54 04:51
BUN 27 H 25 H
Creatinine 1.1 1.3
Estimated Creat Clear 58 49
Albumin 3.1 L
08/18/24 08/18/24
19:54 23:30
Lactic Acid 1.1 Cancelled
Lab Results - Urine
08/18/24
19:54
Urine Nitrite (Reflex) Negative
Leukocyte Esterase Rfl 2+ A
Urine WBC (Reflex) 16-20 A
Ur Squamous Epith Cells >30
Urine Bacteria (Reflex) Moderate A
Microbiology Results
08/18/24 21:33 Influenza Types A & B (MAYELA) - Final
Nasal Swab Negative for Influenza A & B, NAAT
Negative results must be combined with clinical observations
and patient history.
Nucleic Acid Amplification test (NAAT)performed on the
[employer] platform.
--- NOTE | 2024-08-19 11:31 | WOUNDNOTE ---
LEFT 2ND TOE AMP SITE
--- NOTE | 2024-08-19 11:33 | WOUNDNOTE ---
LEFT MEDIAL ANKLE
--- NOTE | 2024-08-19 11:34 | WOUNDNOTE ---
SACRUM, BILATERAL ILIAC CREST
--- NOTE | 2024-08-19 11:35 | WOUNDNOTE ---
LEFT ILIAC CREST
--- NOTE | 2024-08-19 11:39 | WOUNDNOTE ---
RIGHT ILIAC CREST
--- NOTE | 2024-08-19 11:40 | WOUNDNOTE ---
NECK, LEFT SIDE
--- NOTE | 2024-08-19 11:41 | WOUNDNOTE ---
ANKLE
LEFT MEDIAL ANKLE
--- NOTE | 2024-08-19 11:45 | WOUNDNOTE ---
RIGHT LATERAL FOOT
--- NOTE | 2024-08-19 11:46 | WOUNDNOTE ---
RIGHT MEDIAL LEG
--- NOTE | 2024-08-19 11:53 | WOUNDNOTE ---
LEFT MEDIAL ANKLE, LEFT HEEL
--- NOTE | 2024-08-19 11:55 | WOUNDNOTE ---
WON RN note: Patient admitted with R lower lobe pneumonia and blocked feeding tube.
See H&P for complete history. Lives at home with and caregivers. He is current with [facility].
PMH: bedbound, immobile and severely contracted with multiple stage 4 pressure injuries, complicated Covid infection with cardiac arrest and anoxic brain injury, CVA, GJ tube and Trach.
Wound Location and type/assessment: Patient known to service, last seen 07/30/24 admitted with same multiple stage 4 sacral, R hip, bilateral iliac, R medial leg and R lateral elbow pressure injuries. All wounds appear switch cleaner and more shallow. R
lateral foot with healed PI, now scabbed. Heels are intact, mild MASD vs evolving PI on R medial heel which presses into L medial ankle. Has fungal rash on L medial ankle, all periwound's and neck. Nurse Porter assisted with care, patient severely
retracted, difficult to pull legs apart to assess wounds. L dorsal 2nd toe with dry intact scab.
Appetite: NPO, on tube feeding.
Pressure redistribution devices in place: On [facility] air bed, turned to R semi side lying position, pillow btw legs. air cushion provided and under heels.
Plan: Dressings changed on all wounds, alginate and dry dressing. Will order Nizoral cream for ela wounds and neck rash. Protective foams applied to heels and R foot. Patient high risk for worsening or additional pressure injuries despite
preventative measures. Will confirm orders with hospitalist. Updated nurse Rhodes on the above.
Care plan to be updated and will follow as needed.
Note to case management of equipment requested for discharge: air mattress
--- NOTE | 2024-08-19 11:57 | WOUNDNOTE ---
LEFT MEDIAL ANKLE, RIGHT HEEL
--- NOTE | 2024-08-19 13:15 | W.PN.HOSP.TC ---
Today's Communication/Plan
-
IRAD G-J exchange
IVF
restart meds/feeding pending clearance
ID eval
prognosis poor.
Assessment / Plan
Assessment / Plan
General: Appears Chronically Ill and Cachectic
HEENT: Tracheostomy Collar (Dried mucous around tracheostomy site) and Other (Dry Mucous Membranes)
Respiratory: Rhonchi (Diffuse)
Cardiac: S1/S2, Regular Rhythm and Tachycardia
GI: Soft, Non Tender and Other (GJ Tube site appears clean)
Rectal: Deferred by Provider
Musculoskeletal: Other (Severe contractures of all four extremities)
Skin: Decubitus sacral R hip, bilateral iliac, R medial and R elbow PI
Neuro: Other (Eyes slightly open but does not follow commands)
Psych: Calm
Sepsis likely secondary to Recurrently aspiration pneumonia vs. low likelihood of sacral wound/cellulitis
-Consult Infectious Disease as with recent multiple hospitalization and has received multiple doses of IV antibiotics.
-Prior records reviewed and wound noted.
-Continue empiric Vancomycin and Zosyn for now
Clogged GJ Tube
-Hold Tube Feeding
-s/p IRAD GJ exchange
-await IRAD recs if okay to use for meds/feeding
-IVF in the interim
Multiple decubitus ulcer with skin/soft tissue injury
-Consult Wound Care
Anoxic Brain Injury
-Patient is bedbound and tube feeding dependent
-Continue tube feeding as per dietary recommendations once GJ tube unclogged/exchanged
-Palliative care saw patient recently. Family refused Hospice.
Paroxysmal Atrial Fibrillation
-Hold amiodarone and metoprolol until able to use GJ tube
-Will use Lopressor IV as needed for elevated heart rate
Anemia of Chronic Disease and Iron Deficiency Anemia
-Overall Hgb stable compare to previous
Seizure Disorder
-Transition to IV Keppra
-Valproic Acid dose is quite low and is likely for mood stabilization - Will resume valproic acid via tube when able
DVT proph: Lovenox
Code Status: DNR.
snf prognosis guarded
Anticipated Discharge: > 48 hours
Subjective/Interval History
-
Date of Service: August 19, 2024
Overnight event noted wtih fever.
seen patient with wound care-sacral wound note-no active oozing or bleeding. looks like its healing
G-J clogged and about underg to IRAD
Objective Data
-
Labs:
Laboratory Results
08/19/24
04:51
WBC 9.5
Hgb 9.2 L
Hct 28.9 L
Plt Count 227
Sodium 137
Potassium 4.5
Chloride 101
Carbon Dioxide 28
BUN 25 H
Creatinine 1.3
Glucose 88
Calcium 9.1
Vital Signs:
Vital Signs
Temp Pulse Resp BP Pulse Ox
98.9 F 79 23 141/73 97
08/18/24 23:00 08/19/24 07:00 08/18/24 19:18 08/19/24 07:00 08/19/24 05:47
I&O
08/18/24 08/19/24 08/20/24
06:59 06:59 06:59
Intake Total 1730 / 1730
Output Total 300 / 300
Balance 1430 / 1430
Data Reviewed
-
Total Time Spent with Patient (in minutes): 55
[2024-08-19] MEDS: VANCOCIN HCL 500 MG 100 IV (14:11)
--- NOTE | 2024-08-19 14:15 | CON.ID ---
Consultation
-
Date/Time Consultation Requested: 08/19/24 13:13
Date/Time Consultation Performed: 08/19/24 14:21
Requesting Provider: Dr William
Performing Provider: Dr Rae
Reason for Consultation: aspiration
Chief Complaint / Past History
Chief Complaint
fever
History of Present Illness
Mr Levi is a 58 year old male with history of anoxic brain injury - nonverbal, seizure disorder on keppra, contractures, numerous pressure related injuries present on arrival who presented here for fever. reports feeding tube has been
difficult to use for several days and today is no longer flushing. History is limited by the condition of the patient. After his last hospitalization with wound infections he was planned for a 14 day total course of augmentin/ciprofloxacin and
would have completed that course tomorrow, nevertheless today he represented with evidence of relapse of wound infection in many of his wounds.
Since arrival lisset Tmax 101.5 rectally, bp has been stable, wbc yesterday 13.3 today 9.5, hgb 9.2, plt 227, L shift present on arrival, na 131 on arrival today 137, k 4.5, cr 1.3, lactic acid 1.1, lfts wnl, UA >30 squamous cells/hpf and 16-20 wbcs,
covid ag negative, 08/18 CXR: minimal right lung opacity which could represent subsegmental atelectasis and/for pneumonia, his sacral wound was sent for culture and two sets of blood cultures are in progress, urine culture contaminated
Past History
Additional Past Medical History:
Paroxysmal Atrial Fibrillation
Anoxic Brain Injury
Multiple Stage IV Pressure Injuries
Anemia of Chronic Disease and Iron Deficiency Anemia
Seizure Disorder
Esophagitis / Esophageal Ring
Additional Past Surgical History:
Appendectomy
Tonsillectomy
Allergy History:
phenobarbital Allergy (Verified 08/18/24 19:08)
Unknown
Medications Reviewed: Yes
Social History
Tobacco: Non-Smoker
Alcohol: None
Drug: None
Living: With Family
Family History
Family History: Not Pertinent
Review of Systems
Review of Systems
unable to obtain due to the condition of the patient
Vital Signs
Temp Pulse Resp BP Pulse Ox
98.9 F 79 23 141/73 97
08/18/24 23:00 08/19/24 07:00 08/18/24 19:18 08/19/24 07:00 08/19/24 05:47
Physical Exam
Physical Exam
Constitutional: Acutely Ill, Chronically Ill and Cachetic
Pharynx: Other (thin serous secretions from the stoma)
Cardiovascular: Regular Rate and S1/S2; Negative Murmur or Rub
Pulmonary: Clear and Symmetric; Negative Wheezes, Rales or Rhonchi
Gastrointestinal: Soft, Non Tender, Non Distended and Normal Bowel Sounds
Musculoskeletal: Other (sacral wound - clean base no necrotic tissue, surrounding erythema, L iliac crest - clean base with surrounding erythema, left second toe amp site - eschar, mild surrounding pinkness)
Skin: Warm and Dry; Negative Rash or Jaundice
Wound: Other (numerous: right medial leg clean base no erythema/warmth/tenderness/drainage, right lateral foot - some surrounding erythema, right elbow - surrounding erythema, right hip - granulation tissue with surrounding erythema, L neck -
crusting surrounding erythema, right iliac crest - clean base - erythe )
Lab / Diagnostic Study Results
08/19/24 04:51
08/19/24 04:51
Abs Immat Gran (auto) 0.0 10^3/uL (0-0.05) 08/18/24 19:54
Absolute Neuts (auto) 10.3 10^3/uL (1.4-6.5) H 08/18/24 19:54
Absolute Lymphs (auto) 1.2 10^3/uL (1.2-3.4) 08/18/24 19:54
Absolute Monos (auto) 1.0 10^3/uL (0.1-0.6) H 08/18/24 19:54
Absolute Basos (auto) 0.1 10^3/uL (0-0.2) 08/18/24 19:54
Immature Gran % 0.3 % (0-0.5) 08/18/24 19:54
Neutrophils % 77.3 % (42.2-75.2) H 08/18/24 19:54
Lymphocytes % 9.1 % (20.5-51.1) L 08/18/24 19:54
Monocytes % 7.3 % (1.7-9.3) 08/18/24 19:54
Eosinophils % 5.4 % (0-6) 08/18/24 19:54
Basophils % 0.6 % (0-2) 08/18/24 19:54
Lactic Acid Cancelled 08/18/24 23:30
Ur Squamous Epith Cells >30 /LPF (Few) 08/18/24 19:54
Microbiology Results
Micro:
08/18/24 19:54 Urine Culture - Final
Urine
08/18/24 22:19 Wound Culture - Pending
Sacral Gram Stain - Preliminary
08/18/24 19:54 Blood Culture - Pending
Blood/Venous
08/18/24 22:17 Blood Culture - Pending
Blood/Venous
08/18/24 21:33 Influenza Types A & B (MAYELA) - Final
Nasal Swab Negative for Influenza A & B, NAAT
Negative results must be combined with clinical observations
and patient history.
Nucleic Acid Amplification test (NAAT)performed on the
[employer] platform.
08/19/24 CXR: Extremely low lung volumes are noted. There is minimal right lung opacity which could represent subsegmental atelectasis and/for pneumonia. The heart is stable in size and configuration.
Assessment / Plan
Fever
Multiple Decubitus Ulcers with skin/soft tissue infection
PEG tube malfunction
Anoxic Brain Injury
Suspected Tracheitis
Prior tacheostomy - decanulated
Contractures
Cellulitis around multiple wounds
Seizure Disorder - on keppra
Cachexia
- wound culture from the sacral wound taken - expect it to be polymicrobial; previously colonized with pseudomonas
- blood cultures x2 in progress
- for PEG tube assessment with IR
- treating any underlying osteomyelitis without tissue coverage of the bone is futile and would result in acquisition of progressively more resistant pathogens leaving patient in a worse position than where he started. It would not be possible to
offload all of his pressure injuries particularly given contractures. Recurrent infections expected and we are seeing that clinically.
Patient with exceedingly poor quality of life, functionally quadriplegic, with no expectation of improvement. He is worsening in my opinion; note that he was on augmentin and ciprofloxacin prior to arrival and still with progression of wound
infections Expect acquisition of MDROs.
Continue to expect recurrent hospitalizations despite maximal care.
Patient is hospice appropriate, which has been offered to family previously, would readdress. The interval between his hospitalizations seems to be decreasing.
[2024-08-19] MEDS: ZOSYN IV (15:50)
[2024-08-19] MEDS: ZOSYN 100 IV ×2 (16:19→21:28)
[2024-08-19] MEDS: PACERONE 200 MG TUBE (16:19)
[2024-08-19] MEDS: LOVENOX 40 MG SC (16:23)
[2024-08-19 16:26] LABS: Urine Albumin Negative (Neg - Trace); Urine Bilirubin Negative (Negative); Urine Character Clear (Clear); Urine Color Yellow; Urine Glucose Negative (Negative); Urine Ketone Negative (Negative); Urine Leukocyte Negative (Negative); Urine Nitrite Negative (Negative); Urine Occult Blood Negative (Negative); Urine Urobilinogen Negative (Neg - 1+)
[2024-08-19] MEDS: DEPAKENE 125 MG TUBE (21:11)
[2024-08-19] MEDS: KEPPRA 750 MG TUBE (21:11)
[2024-08-19] MEDS: LIPITOR 40 MG TUBE (21:12)
[2024-08-19] MEDS: LOPRESSOR 25 MG TUBE (21:12)
[2024-08-19] MEDS: FERROUS SULFATE ORAL LIQUID 300 MG TUBE (21:29)
[2024-08-20 03:00] VITALS: BP 98/51
[2024-08-20] MEDS: ZOSYN 100 IV ×4 (03:36→21:15)
[2024-08-20] MEDS: FLUSH (NSS) 3 FLUSH IV (03:36)
--- NOTE | 2024-08-20 03:41 | PTCARENOTE ---
tube feeding restarted earlier in shift- just increased to 40/hr. goal is 60/hr- pt tolerating- remains on turn schedule- opens eyes does not track- vitals wnl- remains on 28% trach collar to stoma. afebrile- sinus. wound dressings maintained
[2024-08-20 06:00] VITALS: BMI 19.0
[2024-08-20 08:01] VITALS: BP 137/86
[2024-08-20] MEDS: LOPRESSOR 25 MG TUBE ×2 (08:33→21:19)
[2024-08-20] MEDS: VITAMIN C 500 MG TUBE (08:33)
[2024-08-20] MEDS: FERROUS SULFATE ORAL LIQUID 300 MG TUBE ×2 (08:34→21:15)
[2024-08-20] MEDS: PACERONE 200 MG TUBE (08:34)
[2024-08-20] MEDS: VISBIOME 1 CAP TUBE (08:34)
[2024-08-20] MEDS: DEPAKENE 125 MG TUBE ×2 (08:34→21:14)
[2024-08-20] MEDS: KEPPRA 750 MG TUBE ×2 (08:34→21:14)
--- NOTE | 2024-08-20 10:46 | W.PN.ID1 ---
Date of Service
Date of Service: August 20, 2024
Today's Communication
Patient is hospice appropriate, which has been offered to family previously, would readdress. The interval between his hospitalizations seems to be decreasing.
Assessment / Plan
Fever
Pseudobacteremia
Multiple Decubitus Ulcers with skin/soft tissue infection
PEG tube malfunction
Anoxic Brain Injury
Suspected Tracheitis
Prior tacheostomy - decanulated
Contractures
Cellulitis around multiple wounds
Seizure Disorder - on keppra
Cachexia
- wound culture from the sacral wound taken - expect it to be polymicrobial; previously colonized with pseudomonas
- blood cultures x2 in progress - 1 set probable CONS, most likely a contaminant
- s/p PEG exchange 08/19
- continue zosyn for today
- treating any underlying osteomyelitis without tissue coverage of the bone is futile and would result in acquisition of progressively more resistant pathogens leaving patient in a worse position than where he started. It would not be possible to
offload all of his pressure injuries particularly given contractures. Recurrent infections expected and we are seeing that clinically.
Patient with exceedingly poor quality of life, functionally quadriplegic, with no expectation of improvement. He is worsening in my opinion; note that he was on augmentin and ciprofloxacin prior to arrival and still with progression of wound
infections Expect acquisition of MDROs.
Expect recurrent hospitalizations despite maximal care.
Patient is hospice appropriate, which has been offered to family previously, would readdress. The interval between his hospitalizations seems to be decreasing.
Chief Complaint
-: Other (wound infections)
Subjective / Review of Systems
no further fevers
bp stable
PEG tube exchanged yesterday
Vital Signs / Physical Exam
Vital Signs
Vital Signs
Temp Pulse Resp BP Pulse Ox
98.4 F 93 16 137/86 95
08/20/24 08:01 08/20/24 08:33 08/20/24 08:01 08/20/24 08:33 08/20/24 09:07
Physical Exam
Constitutional: No Acute Distress
Cardiovascular: Regular Rate and S1/S2; Negative Murmur or Rub
Pulmonary: Clear and Symmetric; Negative Wheezes or Rales
Gastrointestinal: Soft, Non Tender, Non Distended and Normal Bowel Sounds
Skin: Warm and Dry; Negative Rash or Jaundice
Wound: Other (deferred dressing take down today- dressing were just exchanged)
Objective Data
Lab Data
Lab Results
08/19/24 04:51
Estimated Creat Clear 49 ml/min 08/19/24 04:51
Lactic Acid Cancelled 08/18/24 23:30
Total Bilirubin 0.5 mg/dl (0.2-1.3) 08/18/24 19:54
AST 26 U/L (17-59) 08/18/24 19:54
ALT 14 U/L (0-50) 08/18/24 19:54
Alkaline Phosphatase 125 U/L (38-126) 08/18/24 19:54
Most recent labs reviewed.
Micro Results:
08/18/24 19:54 Blood Culture - Preliminary
Blood/Venous No Growth in 24 hours- Final report to follow
08/18/24 22:17 Blood Culture - Preliminary
Blood/Venous Positive culture in progress
Gram Stain - Preliminary
08/19/24 16:00 MRSA Screen - Pending
Nose
08/18/24 19:54 Urine Culture - Final
Urine
08/18/24 22:19 Wound Culture - Pending
Sacral Gram Stain - Preliminary
08/18/24 21:33 Influenza Types A & B (MAYELA) - Final
Nasal Swab Negative for Influenza A & B, NAAT
Negative results must be combined with clinical observations
and patient history.
Nucleic Acid Amplification test (NAAT)performed on the
[employer] platform.
--- NOTE | 2024-08-20 11:44 | W.PN.HOSP.TC ---
Addendum entered and electronically signed by Aníbal William MD 08/20/24 13:35:
Blood culture with CoNS likely contamiant.
Original Note:
Today's Communication/Plan
-
Monitor for additional 24 hours
ID recs for antibiotic
Continue with home medication
Continue with wound care and offloading
Prognosis guarded
Assessment / Plan
Assessment / Plan
General: Appears Chronically Ill and Cachectic
HEENT: Tracheostomy Collar (Dried mucous around tracheostomy site) and Other (Dry Mucous Membranes)
Respiratory: Rhonchi (Diffuse)
Cardiac: S1/S2, Regular Rhythm and Tachycardia
GI: Soft, Non Tender and Other (GJ Tube site appears clean)
Rectal: Deferred by Provider
Musculoskeletal: Other (Severe contractures of all four extremities)
Skin: Decubitus sacral R hip, bilateral iliac, R medial and R elbow PI
Neuro: Other (Eyes slightly open but does not follow commands)
Psych: Calm
Sepsis likely secondary to Recurrently aspiration pneumonia vs. multiple sacral wound/cellulitis
-Consult Infectious Disease as with recent multiple hospitalization and has received multiple doses of IV antibiotics.
-Prior records reviewed and wound noted.
-Continue Zosyn for now
Clogged GJ Tube
-s/p IRAD GJ exchange
-okay to use and functioning well.
Multiple decubitus ulcer with skin/soft tissue injury
-Consult Wound Care
Anoxic Brain Injury
-Patient is bedbound and tube feeding dependent
-Continue tube feeding as per dietary recommendations once GJ tube unclogged/exchanged
-Palliative care saw patient recently. Family refused Hospice.
Paroxysmal Atrial Fibrillation
-continue with amiodarone and metoprolol
Anemia of Chronic Disease and Iron Deficiency Anemia
-Overall Hgb stable compare to previous
Seizure Disorder
-cont with keppra and Valproic acid
DVT proph: Lovenox
Code Status: DNR.
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
Discussed with spouse once again in detail. Discussed infectious disease recommendation and personal observation patient with multiple hospitalization with similar situation of aspiration pneumonia pneumonitis sacral wound infection. Patient has
received multiple doses of broad-spectrum antibiotics. Did state to spouse, the wounds and the pneumonia episodes will continue to happen and patient will be at increased risk of rehospitalization. Recommended hospice highly however spouse once
again refused.
Anticipated Discharge: Within 24 hours
Subjective/Interval History
-
Date of Service: August 20, 2024
increased secretion from trach site-looks like Tube feeds
Objective Data
-
Labs:
Laboratory Results
08/20/24
08:40
Sodium Pending
Potassium Pending
Chloride Pending
Carbon Dioxide Pending
BUN Pending
Creatinine Pending
Glucose Pending
Calcium Pending
Vital Signs:
Vital Signs
Temp Pulse Resp BP Pulse Ox
98.4 F 93 16 137/86 95
08/20/24 08:01 08/20/24 08:33 08/20/24 08:01 08/20/24 08:33 08/20/24 09:07
I&O
08/19/24 08/20/24 08/21/24
06:59 06:59 06:59
Intake Total 1730 / 1730 1750 / 1750
Output Total 300 / 300 1250 / 1250
Balance 1430 / 1430 500 / 500
Data Reviewed
-
Total Time Spent with Patient (in minutes): 55
[2024-08-20 12:24] VITALS: BP 90/56
[2024-08-20] MEDS: NIZORAL 2% CREAM 1 APPLIC TOPICAL (12:37)
[2024-08-20 12:39] LABS: Blood Urea Nitrogen 22 mg/dl (9-20); Calcium 8.9 mg/dl (8.4-10.2); Carbon Dioxide 24 mmol/L (22-30); Chloride 104 mmol/L (98-107); Estimated Creatinine Clearance 50 ml/min; Glucose 94 mg/dl (70-99); Potassium 4.2 mmol/L (3.5-5.1); Sodium 137 mmol/L (135-145); eGFR > 60.00
--- NOTE | 2024-08-20 13:45 | PN.CDI ---
CDI
- -
CDI:
Physician Documentation Request
Admit Date: 08/18/24 22:21
Dear Doctor Stewart,
Please review the following and provide your response in the progress notes.
Clinical Indicators:
Admitted, 08/18
PN, 08/20
#Sepsis likely secondary to Recurrently aspiration pneumonia vs. multiple sacral wound/cellulitis
08/19/24 11:55 (created 08/19/24 12:00) - Wound Note
#Wound Location and type/assessment:
#...Patient known to service, last seen 07/30/24
#admitted with same multiple
#...stage 4 sacral, R hip, bilateral iliac, R medial leg and R lateral elbow pressure injuries.
#R lateral foot with healed PI, now scabbed.
Heels are intact, mild MASD vs evolving PI on R medial heel which presses into L medial ankle.
Physician documentation of the type and location of wounds is required for compliant documentation. Based on the above clinical findings and your assessment, please provide the following in your progress note:
Please document your findings, related to 'Multiple sacral wound/...', if you agree:
1.)Stage 4 sacral pressure injury
2.) Stage 4 right hip pressure injury
3.) Stage 4 bilateral iliac pressure injury
4.) Stage 4 right medial leg pressure injury
5.) Stage 4 tight lateral elbow pressure injury
6.) Right medial heel evolving pressure injury
1. Location of the ulcer/wound, including laterality.
2. Type (etiology) of ulcer/wound:
- Pressure (decubitus) ulcer
- Non-healing surgical wound
- Other(please specify)
3. If a pressure ulcer, please also include the stage* of the ulcer:
- Stage 1 - Skin intact, non-blanchable redness
- Stage 2 - Partial thickness loss of dermis, includes intact or open blister
- Stage 3 - Full thickness tissue not including bone, tendon or muscle
- Stage 4 - Full thickness tissue loss, including exposed bone, tendon or muscle
- Unstageable - Full thickness loss in which the base of the ulcer is covered by slough (yellow, brody, porter, green or brown) and/or eschar (brody, brown or black) in the wound bed.
Use of terms such as suspected, likely, concern for, or probable (associated with a specific diagnosis that is being evaluated, monitored, or treated as if it exists) are acceptable and can be coded in the inpatient setting, when documented at the
time of discharge.
Thank you,
Linda Horton RN BSN CCDS
CDI Specialist
please contact via tiger text
Please use your independent medical judgment in providing your response.
*Source: National Pressure Ulcer Advisory Panel (NPUAP)
[2024-08-20 15:41] VITALS: BP 103/58
[2024-08-20] MEDS: LOVENOX 40 MG SC (16:56)
[2024-08-20 19:00] VITALS: BP 110/65
[2024-08-20] MEDS: LIPITOR 40 MG TUBE (21:15)
[2024-08-20 23:00] VITALS: BP 98/54
[2024-08-21 03:00] VITALS: BP 108/69
[2024-08-21] MEDS: ZOSYN 100 IV ×3 (03:51→15:43)
[2024-08-21 06:00] VITALS: BMI 18.9
[2024-08-21 07:18] LABS: Blood Urea Nitrogen 21 mg/dl (9-20); Calcium 8.9 mg/dl (8.4-10.2); Carbon Dioxide 29 mmol/L (22-30); Chloride 104 mmol/L (98-107); Estimated Creatinine Clearance 50 ml/min; Glucose 115 mg/dl (70-99); Potassium 4.1 mmol/L (3.5-5.1); Sodium 139 mmol/L (135-145); eGFR > 60.00
--- NOTE | 2024-08-21 07:32 | PN.CDI ---
CDI
- -
CDI:
Physician Documentation Request
Admit Date: 08/18/24 22:21
Dear Doctor Stewart,
Please review the following and provide your response in the progress notes.
Clinical Indicators:
EMS, 08/18
#' Breathing via a stoma appeared somewhat labored with coughing.
#...Pt was on humidified O2 at home.
#...On RA, the sats dropped to 82%
#NRB mask was placed over the stoma tube and titrated up to 97% at 15LPM
#...pt was transported high semi-fowlers position
H+P, 08/18
#Continue oxygen supplementation via trach collar.
Selected Entries
08/19/24
08:15
Flow liters per minute # 8
% Oxygen delivered 35
Oxygen Mode of Delivery Trach collar
Selected Entries
08/19/24
19:30
Flow liters per minute # 5
% Oxygen delivered 28
Oxygen Mode of Delivery Trach collar
Based on the above and your clinical assessment, please clarify which of the following accurately represents the patient's respiratory status:
Acute respiratory failure
Acute on chronic respiratory failure
Chronic respiratory failure
Hypoxia
Other(please specify)
Additional information for Respiratory Failure:
Recognized criteria for Respiratory Failure (Source: ACP Hospitalist Jun 2013)
ABGs: (1 or more) Symptoms
1. p)2 <60 or RA SPO2 <91% on RA 1. Tachypnea, SOB, dyspnea
2. pCO2 50 and pH <7.35 2. Use of accessory muscles
3. pO2 decrease of pCO2 increase by 3. Pallor or cyanosis
10 mmHg from baseline if known 4. Anxiety or restlessness
5. Unable to speak in full sentences
Supplemental O2 of > 40% (5LPM) Intubation is not required
Use of terms such as suspected, likely, concern for, or probable (associated with a specific diagnosis that is being evaluated, monitored, or treated as if it exists) are acceptable and can be coded in the inpatient setting, when documented at the
time of discharge.
Thank you,
Linda Horton RN BSN CCDS
CDI Specialist
please contact via tiger text
Please use your independent medical judgment in providing your response.
[2024-08-21 08:15] VITALS: BP 108/70
[2024-08-21] MEDS: VISBIOME 1 CAP TUBE (08:23)
[2024-08-21] MEDS: PACERONE 200 MG TUBE (08:23)
[2024-08-21] MEDS: LOPRESSOR 25 MG TUBE (08:24)
[2024-08-21] MEDS: DEPAKENE 125 MG TUBE (08:24)
[2024-08-21] MEDS: KEPPRA 750 MG TUBE (08:24)
[2024-08-21] MEDS: VITAMIN C 500 MG TUBE (08:24)
[2024-08-21] MEDS: NIZORAL 2% CREAM 1 APPLIC TOPICAL (08:25)
[2024-08-21] MEDS: FERROUS SULFATE ORAL LIQUID 300 MG TUBE (08:25)
[2024-08-21 11:28] VITALS: BP 114/71
--- NOTE | 2024-08-21 11:59 | W.PN.HOSP.TC ---
Addendum entered and electronically signed by Aníbal William MD 08/21/24 12:38:
Acute on chronic respiratory failure
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
Addendum entered and electronically signed by Aínbal William MD 08/21/24 12:34:
Discussed with ID. Plan to switch patient to Augmentin and ciprofloxacin
Discussed with spouse over the phone. Agreeable for discharge. Case management aware.
Resume enteral feeds at home as ordered prior to hospital admission
More than 30 minutes spent in discharge including
Final examination of the patient
Summarizing hospital stay
Instructions for continuing care to all relevant caregivers
Preparation of discharge records, prescriptions, and referral forms
Total time spent (in minutes): 60
Original Note:
Today's Communication/Plan
-
Start disposition-
ID recommendation
Continue with tube feeding
Prognosis guarded. Refused hospice.
Assessment / Plan
Assessment / Plan
General: Appears Chronically Ill and Cachectic
HEENT: Tracheostomy Collar (Dried mucous around tracheostomy site) and Other (Dry Mucous Membranes)
Respiratory: Rhonchi (Diffuse)
Cardiac: S1/S2, Regular Rhythm and Tachycardia
GI: Soft, Non Tender and Other (GJ Tube site appears clean)
Rectal: Deferred by Provider
Musculoskeletal: Other (Severe contractures of all four extremities)
Skin: Decubitus sacral R hip, bilateral iliac, R medial and R elbow PI
Neuro: Other (Eyes slightly open but does not follow commands)
Psych: Calm
Sepsis likely secondary to Recurrently aspiration pneumonia vs. multiple sacral wound/cellulitis
-Consult Infectious Disease as with recent multiple hospitalization and has received multiple doses of IV antibiotics.
-Prior records reviewed and wound noted.
-Continue Zosyn for now
-would culture as well expected with polymicrobial growth. Blood cultures with contamination.
-Await further ID recs for p.o. antibiotic options.
Clogged GJ Tube
-s/p IRAD GJ exchange
-okay to use and functioning well.
Multiple decubitus ulcer with skin/soft tissue injury
-Consult Wound Care
Anoxic Brain Injury
-Patient is bedbound and tube feeding dependent
-Continue tube feeding as per dietary recommendations once GJ tube unclogged/exchanged
-Palliative care saw patient recently. Family refused Hospice.
Paroxysmal Atrial Fibrillation
-continue with amiodarone and metoprolol
Anemia of Chronic Disease and Iron Deficiency Anemia
-Overall Hgb stable compare to previous
Seizure Disorder
-cont with keppra and Valproic acid
DVT proph: Lovenox
Code Status: DNR.
longterm prognosis guarded
Discussed with spouse once again in detail 08/20/24. Discussed infectious disease recommendation and personal observation patient with multiple hospitalization with similar situation of aspiration pneumonia pneumonitis sacral wound infection.
Patient has received multiple doses of broad-spectrum antibiotics. Did state to spouse, the wounds and the pneumonia episodes will continue to happen and patient will be at increased risk of rehospitalization. Recommended hospice highly however
spouse once again refused.
Anticipated Discharge: Today
Subjective/Interval History
-
Date of Service: August 21, 2024
Remains afebrile
tolerating TF
Objective Data
-
Labs:
Laboratory Results
08/21/24
06:12
Sodium 139
Potassium 4.1
Chloride 104
Carbon Dioxide 29
BUN 21 H
Creatinine 1.3
Glucose 115 H
Calcium 8.9
Vital Signs:
Vital Signs
Temp Pulse Resp BP Pulse Ox
98 F 69 16 114/71 97
08/21/24 11:28 08/21/24 11:28 08/21/24 11:28 08/21/24 11:28 08/21/24 11:28
I&O
08/20/24 08/21/24 08/22/24
06:59 06:59 06:59
Intake Total 1750 / 1750
Output Total 1250 / 1250 450 / 450
Balance 500 / 500 -450 / -450
--- NOTE | 2024-08-21 12:06 | W.PN.ID1 ---
Date of Service
Date of Service: August 21, 2024
Today's Communication
- Transition zosyn to Augmentin 875mg tube bid and cipro 500mg tube bid through 08/25/24.
Assessment / Plan
Fever x 1 resolved
Pseudobacteremia with CoNS
Multiple Decubitus Ulcers with skin/soft tissue infection
PEG tube malfunction
Suspected Tracheitis vs aspiration from malfunction PEG
Anoxic Brain Injury
Susp
Prior tacheostomy - decanulated
Contractures
Seizure Disorder - on keppra
Cachexia
- wound culture from the sacral wound taken - expect it to be polymicrobial; previously colonized with pseudomonas
- blood cultures x2 in progress - 1 set probable CONS =contaminant
- s/p PEG exchange 08/19
- treating any underlying osteomyelitis without tissue coverage of the bone is futile and would result in acquisition of progressively more resistant pathogens leaving patient in a worse position than where he started. It would not be possible to
offload all of his pressure injuries particularly given contractures. Recurrent infections expected and we are seeing that clinically.
Patient with exceedingly poor quality of life, functionally quadriplegic, with no expectation of improvement. He is worsening in my opinion; note that he was on augmentin and ciprofloxacin prior to arrival and still with progression of wound
infections Expect acquisition of MDROs.
Expect recurrent hospitalizations despite maximal care.
- Transition zosyn to Augmentin 875mg tube bid and cipro 500mg tube bid through 08/25/24.
Chief Complaint
-: Other (wound infections)
Subjective / Review of Systems
Nonverbal.
Vital Signs / Physical Exam
Vital Signs
Vital Signs
Temp Pulse Resp BP Pulse Ox
98 F 69 16 114/71 97
08/21/24 11:28 08/21/24 11:28 08/21/24 11:28 08/21/24 11:28 08/21/24 11:28
Physical Exam
Constitutional: Chronically Ill
Eyes: Sclera Anicteric
Pulmonary: Clear (anteriorly)
Gastrointestinal: Soft, Non Tender and Non Distended
Genito-Urinary: Prince
Musculoskeletal: Other (contracted all 4 extremities)
Objective Data
Lab Data
Lab Results
08/19/24 04:51
08/21/24 06:12
Estimated Creat Clear 50 ml/min 08/21/24 06:12
Lactic Acid Cancelled 08/18/24 23:30
Total Bilirubin 0.5 mg/dl (0.2-1.3) 08/18/24 19:54
AST 26 U/L (17-59) 08/18/24 19:54
ALT 14 U/L (0-50) 08/18/24 19:54
Alkaline Phosphatase 125 U/L (38-126) 08/18/24 19:54
Most recent labs reviewed.
Micro Results:
08/18/24 22:19 Wound Culture - Preliminary
Sacral Gram negative bacilli
Enterococcus species
Yeast
Gram Stain - Preliminary
08/19/24 16:00 MRSA Screen - Final
Nose No Methicillin Resistant Staphylococcus aureus isolated.
08/18/24 19:54 Blood Culture - Preliminary
Blood/Venous No Growth in 48 hours- Final report to follow
08/18/24 22:17 Blood Culture - Preliminary
Blood/Venous Coagulase neg. staphylococcus
Additional testing on request
Gram Stain - Preliminary
08/18/24 19:54 Urine Culture - Final
Urine
08/18/24 21:33 Influenza Types A & B (MAYELA) - Final
Nasal Swab Negative for Influenza A & B, NAAT
Negative results must be combined with clinical observations
and patient history.
Nucleic Acid Amplification test (NAAT)performed on the
[employer] platform.
08/18/24 CXR: Extremely low lung volumes are noted. There is minimal right lung opacity which could represent subsegmental atelectasis and/for pneumonia. The heart is stable in size and configuration.
Care Review
Plan reviewed with: Physician (Dr. William)
--- NOTE | 2024-08-21 12:34 | W.DCSUMMARY ---
Discharge Summary
Discharge Data
Date of Admission: 08/18/24
Date of Discharge: 08/21/24
-
Pending Results: No
Hospital Course
58-year-old male with past medical history of decubitus ulcer, paroxysmal atrial fibrillation, anoxic brain injury with functional quadriplegia, GJ tube, multiple stage IV pressure injuries, seizure disorder, anemia of chronic disease came to the
hospital with fever. Patient was seen by infectious disease and was initially started on IV antibiotics. Source of infection was likely multifactorial secondary to infection of the sacral wound versus aspiration pneumonia/pneumonitis. Spouse also
stated of obstruction of the GJ tube and interventional radiology was consulted. Status post GJ tube exchange. Post GJ tube exchange patient was tolerating tube feeds without any difficulty. Patient remained afebrile for greater than 48 hours. l
IV Zosyn was transitioned to p.o. Augmentin and Cipro on discharge per ID recs. Patient was able to tolerate tube feeding prior to discharge. Did recommend hospice to spouse but she refused. Recommended to continue with outpatient VNA and increase
offloading for wound healing.
Discharge Plan
-
Patient Disposition: Home with Home Care
Discharge Diagnosis/Procedures: Sepsis likely secondary to recurrent aspiration pneumonia versus infected multiple sacral wound cellulitis
Clogged GJ tube status post exchange
Condition: Fair
Diet: Other diet
Additional Diets: Tube feeding Jevity 1.5 60cc/hr with 30cc FWF or per your dietary recommendation.
Activity: As tolerated
Driving Restrictions: No driving
Other Services: VN
Activity Restrictions/Additional Instructions:
Wound Care Instructions
Sacrum, Iliac crests, R hip, R elbow and R medial lower leg: clean with saline, Nzoral cream prn fungal rash to periwound, alginate and dry dressing daily.
Nizoral cream for ela wounds and neck rash daily and prn
Heels and foot: clean with soap and water, foams change q 3 days and prn soialge.
Air mattress
air cushion btw knees
Referrals:
UNKNOWN,NO INTERVIEW [Family Provider] -
Prescriptions:
New
amoxicillin-pot clavulanate 875-125 mg tablet
1 tab feeding tube Q12H Qty: 10 0RF
ciprofloxacin [Cipro] 500 mg/5 mL suspension,microcapsule recon
500 mg PO Q12H Qty: 45 0RF
Continued
atorvastatin 40 MG tablet
40 mg feeding tube HS
acetaminophen 325 MG tablet
650 mg feeding tube Q4HPRN PRN (Reason: mild pain, temp>100.4)
albuterol sulfate 2.5 MG/3 ML solution for nebulization
2.5 mg inhalation R [id number] PRN (Reason: sob)
amiodarone [Pacerone] 200 MG tablet
200 mg feeding tube DAILY
ascorbic acid (vitamin C) [Vitamin C] 500 mg Tablet
500 mg feeding tube DAILY
ferrous sulfate 300 mg (60 mg iron)/5 mL Liquid
300 mg feeding tube BID
levetiracetam [Keppra] 100 mg/mL Solution
750 mg feeding tube BID
Santyl 250 unit/gram Ointment
1 applic TOPICAL DAILY
metoprolol tartrate 25 mg Tablet
25 mg feeding tube Q12 30 Days Qty: 60 0RF
Dakin's Solution 0.125 % Solution
1 applic topical DAILY Qty: 473 0RF
Probiotic 10 billion cell capsule
10,000 mmu cells feeding tube DAILY Qty: 10 0RF
miconazole nitrate [Miconazorb AF] 2 % powder
1 applic topical DAILYPRN PRN (Reason: soilage/drainage)
valproic acid (as sodium salt) 250 mg/5 mL Solution
125 mg feeding tube BID 30 Days Qty: 150 0RF
Discharge Orders:
Discharge Patient (As Directed); Ordered 08/21/24
Ordered By: Aníbal William
Discharge Date and Time
Print Language: PERUVIAN
--- NOTE | 2024-08-21 12:56 | CM ---
Pt is non-verbal, obtained information from spouse and recent admission (07/28-08/03).
Pt lives w/ spouse in a 2STH- 4 steps to enter. Ramp access into the home as well. Pt resides on 1st flr of the home.
Pt is bedbound, total care. Pt has multiple wounds requiring wound care which spouse has been providing care
Pt uses [employer] [facility] for transfers
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
Tube feeds are provided by [facility]
Address, points of contact and insurance verified
PCP: Dr. Florian
Pharmacy: [facility]
Pt d/c today per hospitalist.
Will need ambulance transport, forms tubed to [address] [place] [address] clerk. Pt spouse is requesting 6 pm transport time as she has painters working in pt's living area.
IMM reviewed w/ spouse, agreeable to d/c
[facility] JACKELIN referral completed in [facility]
FAX D/C INSTRUCTIONS
Plan: Home. JACKELIN w/ [facility]
[2024-08-21 15:22] VITALS: BP 99/67
== END 2024-08-21 18:34 | disposition home health service (06) | DRG 871 ==
LOC: 3 WEST ACU 22:21
PROVIDERS: Clinical Nurse Specialist Family Health; Physician Assistant Medical; Radiology Vascular & Interventional Radiology; ADMITTING PHYSICIAN Hospitalist; ATTENDING PHYSICIAN Hospitalist; CONSULT PHYSICIAN Student in an Organized Health Care Education/Training Program; EMERGENCY PHYSICIAN Emergency Medicine
PROC: 0D2DXUZ Change Feeding Device in Lower Intestinal Tract, External Approach (ICD-10-PCS; 2024-08-19)
DX: A41.9 Sepsis, unspecified organism (principal); J18.9 Pneumonia, unspecified organism; J96.20 Acute and chronic respiratory failure, unspecified whether with hypoxia or hypercapnia; L89.154 Pressure ulcer of sacral region, stage 4; R53.2 Functional quadriplegia; J69.0 Pneumonitis due to inhalation of food and vomit; Z66 Do not resuscitate; G93.1 Anoxic brain damage, not elsewhere classified; K94.23 Gastrostomy malfunction; R64 Cachexia; Z68.1 Body mass index [BMI] 19.9 or less, adult; L03.312 Cellulitis of back [any part except buttock and flank]; I10 Essential (primary) hypertension; K21.00 Gastro-esophageal reflux disease with esophagitis, without bleeding; K22.2 Esophageal obstruction; I48.0 Paroxysmal atrial fibrillation; D50.9 Iron deficiency anemia, unspecified; D63.8 Anemia in other chronic diseases classified elsewhere; G40.909 Epilepsy, unspecified, not intractable, without status epilepticus; Z74.01 Bed confinement status; Z86.16 Personal history of COVID-19; Z86.73 Personal history of transient ischemic attack (TIA), and cerebral infarction without residual deficits; Z86.74 Personal history of sudden cardiac arrest; Z79.899 Other long term (current) drug therapy; Z11.52 Encounter for screening for COVID-19
CPT/HCPCS: 49452; 71045; 80048; 80053; 81003; 81015; 83605; 85025; 85027; 87040; 87070; 87077; 87086; 87150; 87186; 87205; 87502; 87811; C1729; C1769

== ENCOUNTER 2024-10-13 16:14 | Emergency (ER) | payer MEDICARE, OTHER, SELFPAY ==
[2024-10-13 16:21] VITALS: BP 134/67
--- NOTE | 2024-10-13 18:12 | PTCARENOTE ---
Pt received at 1745 on stretcher from ED. Transferred to IRAD table. G-J Tube and site cleansed and prepped. After time-out, GJ tube accessed with wire, tube removed over wire and replaced over wire. ED nurse took patient back to ED on stretcher.
--- NOTE | 2024-10-13 18:41 | ED.GENMED ---
History of Present Illness
General
Chief Complaint: Catheter/Tube Problem
Source: patient and ambulance crew
Exam Limitations: non verbal-adult
Time Seen by Provider: 10/13/24 16:44
History of Present Illness
History of Present Illness:
Patient presents to ED from home with concern for leakage from recently replaced GJ tube. Patient with history of anoxic brain injury, does not offer any additional information.
Past History
Past History
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
ulcers) and Other (Iron def anemia, Fracture clavicle)
ED Past Surgical History: Appendectomy, Orthopedic and Other (Feeding tube, Prior trach with removal)
Social History
Tobacco: Non-smoker
Alcohol: Occasional
Drug: None
Personal:
Living: with family
Employment: Disabled
Family History
Family History: Other ( sick)
Review of Systems
Review of Systems
Allergies reviewed?: Yes
Unable to obtain full review of systems at this time due to: non-verbal
All Other Systems: Not applicable
Phy Exam
Physical Exam
Physical Exam:
Physical Exam
General: no apparent distress, not acutely ill. afebrile.
Head: nc/at
Neck: no jvd
Lungs: no acute respiratory distress. clear bilaterally
Abdomen: normal bowel sounds. G-J tube noted over LUQ.
Neuro: alert and awake. contracted extremities, chronic
Skin: no rash
Course
Orders/Labs/Results
Orders:
Orders
10/13/24 17:15
IRAD CONSULT Urgent
Consulting Provider: Curtis Whittington
Was physician already notified: Yes
Reason for Consult/Procedure: GJ replacement
Acknowledgement that appropriate orders are entered: Yes
Vital Signs
Initial and Last Documented VS:
Initial Vital Signs
Temp Pulse Resp BP Pulse Ox
97.7 F 78 20 134/67 92
10/13/24 16:21 10/13/24 16:21 10/13/24 16:21 10/13/24 16:21 10/13/24 16:21
Last Documented Vital Signs
Temp Pulse Resp BP Pulse Ox
97.7 F 78 20 134/67 92
10/13/24 16:21 10/13/24 16:21 10/13/24 16:21 10/13/24 16:21 10/13/24 16:21
MDM/Problems Addressed
MDM/Problems Addressed:
GJ tube successfully replaced by IRAD. Patient will be discharged back home for continual care.
*Critical Care Note
Total Time (30-74mins, 75-104mins- exclusive of procedures): Not Applicable
ED Attending Note
-
Portions of this chart may have been created with voice recognition software.� Occasional wrong word or��sound alike� substitutions may have occurred due to the inherent limitations of voice recognition software.
Discharge Plan
Departure
Patient Disposition: Home (Routine Discharge)
Date of Disposition: 10/13/24
Time of Disposition: 19:19
Patient with high blood pressure during this ER visit?: Yes
Condition: Good
Discharge Problem:
Malfunction of gastrostomy tube
Instructions: How to Care for Your Gastrostomy Tube
Prescriptions:
No Action
atorvastatin 40 MG tablet
40 mg feeding tube HS
acetaminophen 325 MG tablet
650 mg feeding tube Q4HPRN PRN (Reason: mild pain, temp>100.4)
albuterol sulfate 2.5 MG/3 ML solution for nebulization
2.5 mg inhalation R [id number] PRN (Reason: sob)
amiodarone [Pacerone] 200 MG tablet
200 mg feeding tube DAILY
ascorbic acid (vitamin C) [Vitamin C] 500 mg Tablet
500 mg feeding tube DAILY
ferrous sulfate 300 mg (60 mg iron)/5 mL Liquid
300 mg feeding tube BID
levetiracetam [Keppra] 100 mg/mL Solution
750 mg feeding tube BID
Santyl 250 unit/gram Ointment
1 applic TOPICAL DAILY
metoprolol tartrate 25 mg Tablet
25 mg feeding tube Q12 30 Days Qty: 60 0RF
Dakin's Solution 0.125 % Solution
1 applic topical DAILY Qty: 473 0RF
Probiotic 10 billion cell capsule
10,000 mmu cells feeding tube DAILY Qty: 10 0RF
miconazole nitrate [Miconazorb AF] 2 % powder
1 applic topical DAILYPRN PRN (Reason: soilage/drainage)
amoxicillin-pot clavulanate 875-125 mg tablet
1 tab feeding tube Q12H Qty: 10 0RF
ciprofloxacin [Cipro] 500 mg/5 mL suspension,microcapsule recon
500 mg PO Q12H Qty: 45 0RF
valproic acid (as sodium salt) 250 mg/5 mL Solution
125 mg feeding tube BID 30 Days Qty: 150 0RF
Referrals:
UNKNOWN - PT NOT,INTERVIEWE [Family Provider] -
Activity Restrictions/Additional Instructions:
As discussed, GJ tube was successfully replaced by interventional radiologist today. Please follow-up with your primary care physician with any further concerns.
Interventions
Interventions:
*Risk Screen - Suicide Last Done: 10/13/24 16:24
*General Assessment Last Done: 10/13/24 16:24
*Neglect/Abuse Screening Last Done: 10/13/24 16:24
*ED- Fall Risk Assessment Last Done: 10/13/24 16:24
*ED COVID-19 Vaccine History Last Done: 10/13/24 16:24
QJ-Zbrngc-Zdcxkcpvnk Assessment Last Done: 10/13/24 16:55
Discharge Date and Time
Print Language: SCOTTISH
[2024-10-13 21:21] VITALS: BP 131/63
== END 2024-10-13 21:57 | disposition home or self-care (01) ==
LOC: EMR 16:14
PROVIDERS: CONSULT PHYSICIAN Radiology Vascular & Interventional Radiology; EMERGENCY PHYSICIAN Emergency Medicine
DX: K94.23 Gastrostomy malfunction (principal); I10 Essential (primary) hypertension
CPT/HCPCS: 99283; 49452; C1769

== ENCOUNTER 2024-12-25 12:38 | Emergency (ER) | payer MEDICARE, SELFPAY ==
[2024-12-25 12:49] VITALS: BP 120/80
[2024-12-25 12:53] VITALS: BP 120/80
--- NOTE | 2024-12-25 12:54 | ED.GENMED ---
History of Present Illness
General
Chief Complaint: Catheter/Tube Problem
Source: ambulance crew
Exam Limitations: none
Time Seen by Provider: 12/25/24 12:47
Nursing documentation reviewed up to this point in time: agreed with
History of Present Illness
History of Present Illness:
59-year-old male presents emergency department due to a leaking GJ tube. His was using it this morning when the GJ tube began leaking. He is nonverbal, and has a tracheostomy. He has no tracheostomy tube in.
Past History
Past History
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
ulcers) and Other (Iron def anemia, Fracture clavicle)
ED Past Surgical History: Appendectomy, Orthopedic and Other (Feeding tube, Prior trach with removal)
Social History
Tobacco: Non-smoker
Alcohol: Occasional
Drug: None
Personal:
Living: with family
Employment: Disabled
Family History
Family History: Other ( sick)
Review of Systems
Review of Systems
Allergies reviewed?: Yes
All Other Systems: Not applicable
Constitutional: Reports no symptoms
EENT: Reports no symptoms
Respiratory: Reports no symptoms
Cardiac: Reports no symptoms
ABD/GI: Reports other (leaking GJ tube)
: Reports no symptoms
Musculoskeletal: Reports no symptoms
Skin: Reports no symptoms
Neurological: Reports no symptoms
Endocrine: Reports no symptoms
Hematologic/Lymphatic: Reports no symptoms
Phy Exam
Physical Exam
Physical Exam:
Physical Exam
General: chronic ill appearance
Neck: supple. no meningeal signs. normal posterior pharynx
Heart: s1/s2 regular rate and rhythm, no murmur. equal radial
pulses.
HEENT: Pupils equal round reactive to light, EOMI
Lungs: no acute respiratory distress. clear bilaterally
Abdomen: normal bowel sounds. not tender. no CVAT, GJ tube in place but split longitudinally, leaking
Neuro: alert but non verbal. contractures
Skin: no rash
Psychiatric: well kept. interactive and cooperative
Extremities: no edema. no calf tenderness. negative homans. good distal pulses, bilateral contractures, third left toe ulceration
Course
Orders/Labs/Results
Orders:
Orders
12/25/24 12:51
Consult Interventional Radiology [IRAD CONSULT] Urgent
Consulting Provider: Curtis Whittington
Was physician already notified: Yes
Procedure being ordered, including laterality if applicable: GJ tube replacement
Acknowledgement that appropriate orders are entered: N/A
12/25/24 14:47
Levetiracetam [Keppra] 750 mg TUBE NOW STA
12/25/24 14:54
Valproic Acid Syrup [Depakene] 1,250 mg TUBE NOW STA
Vital Signs
Initial and Last Documented VS:
Initial Vital Signs
Temp
97.9 F
12/25/24 12:42
Last Documented Vital Signs
Temp Pulse Resp BP Pulse Ox
97.9 F 75 18 122/94 96
12/25/24 12:42 12/25/24 15:32 12/25/24 14:00 12/25/24 13:00 12/25/24 15:32
MDM/Problems Addressed
Differential Diagnosis Includes:
Feeding tube displacement, toe ulceration
MDM/Problems Addressed:
59-year-old male with GJ tube displacement, replaced by interventional radiology. Discussed left third toe ulceration, appears chronic and stable. Discussed with Dr. Cool. Recommends follow-up with visiting nurse.
Chronic conditions affecting care: HTN, Arrhythmia and Neurological disorder (Anoxic brain injury)
Acute Exacerbation and/or Progression of Chronic Illness: HTN and Arrhythmia
*Pulse Oximetry
Patient hypoxic: no
*Critical Care Note
Total Time (30-74mins, 75-104mins- exclusive of procedures): Not Applicable
Data Reviewed
Review of Other/Old Records Reveals: Operative Reports (Reviewed prior GJ tube replacement notes as well as left second toe partial amputation)
Source: records
Patient Management
Social determinants of health affecting care: Living situation and Strong social support
Discussion with other providers: Artist Blacksmith (Podiatry)
Escalation/DeEscalation of care consider admission/obs:
Admission not indicated
ED Attending Note
-
Portions of this chart may have been created with voice recognition software.� Occasional wrong word or��sound alike� substitutions may have occurred due to the inherent limitations of voice recognition software.
Discharge Plan
Departure
Patient Disposition: Home (Routine Discharge)
Date of Disposition: 12/25/24
Time of Disposition: 15:32
Patient with high blood pressure during this ER visit?: No
Condition: Fair
Discharge Problem:
Gastrojejunostomy tube dislodgement
Instructions: How to Care for Your Gastrostomy Tube
Prescriptions:
No Action
atorvastatin 40 MG tablet
40 mg feeding tube HS
acetaminophen 325 MG tablet
650 mg feeding tube Q4HPRN PRN (Reason: mild pain, temp>100.4)
albuterol sulfate 2.5 MG/3 ML solution for nebulization
2.5 mg inhalation R [id number] PRN (Reason: sob)
amiodarone [Pacerone] 200 MG tablet
200 mg feeding tube DAILY
ascorbic acid (vitamin C) [Vitamin C] 500 mg Tablet
500 mg feeding tube DAILY
ferrous sulfate 300 mg (60 mg iron)/5 mL Liquid
300 mg feeding tube BID
levetiracetam [Keppra] 100 mg/mL Solution
750 mg feeding tube BID
Santyl 250 unit/gram Ointment
1 applic TOPICAL DAILY
metoprolol tartrate 25 mg Tablet
25 mg feeding tube Q12 30 Days Qty: 60 0RF
Dakin's Solution 0.125 % Solution
1 applic topical DAILY Qty: 473 0RF
Probiotic 10 billion cell capsule
10,000 mmu cells feeding tube DAILY Qty: 10 0RF
miconazole nitrate [Miconazorb AF] 2 % powder
1 applic topical DAILYPRN PRN (Reason: soilage/drainage)
amoxicillin-pot clavulanate 875-125 mg tablet
1 tab feeding tube Q12H Qty: 10 0RF
ciprofloxacin [Cipro] 500 mg/5 mL suspension,microcapsule recon
500 mg PO Q12H Qty: 45 0RF
valproic acid (as sodium salt) 250 mg/5 mL Solution
125 mg feeding tube BID 30 Days Qty: 150 0RF
divalproex 125 mg capsule, delayed rel sprinkle
1,250 mg PO BID
Patient Comments:
12/25/24: confirmed with [facility] 10 caps 125 mg sprinkle cap via Tube BID - last level checked 12/02/24 = 50
Referrals:
UNKNOWN,NO INTERVIEW [Family Provider] -
Interventions
Interventions:
*ED COVID-19 Vaccine History Last Done: 12/25/24 12:54
Discharge Date and Time
Print Language: POLISH
[2024-12-25 13:00] VITALS: BP 122/94
[2024-12-25 14:00] VITALS: BP_SYST 68
[2024-12-25] MEDS: KEPPRA 750 MG TUBE (14:59)
[2024-12-25] MEDS: DEPAKENE 1250 MG TUBE (15:00)
[2024-12-25 19:00] VITALS: BP 140/62
== END 2024-12-25 19:00 | disposition home or self-care (01) ==
LOC: EMR 12:38
PROVIDERS: CONSULT PHYSICIAN Radiology Vascular & Interventional Radiology; EMERGENCY PHYSICIAN Emergency Medicine
DX: K94.23 Gastrostomy malfunction (principal); L97.529 Non-pressure chronic ulcer of other part of left foot with unspecified severity; I10 Essential (primary) hypertension; Z87.820 Personal history of traumatic brain injury
CPT/HCPCS: 99283; 49452; C1769

== ENCOUNTER 2025-02-07 02:08 | Emergency (ER) | payer MEDICARE, OTHER, SELFPAY ==
[2025-02-07] VITALS (15 sets, daily range): BP systolic 96–115; BP diastolic 67–82
--- NOTE | 2025-02-07 04:15 | EDRN ---
Patient's called and stated that patient is normally on some oxygen, respiratory called and patient placed on a trach. collar.
--- NOTE | 2025-02-07 07:48 | ED.GENMED ---
History of Present Illness
General
Chief Complaint: Catheter/Tube Problem
Source: ambulance crew
Exam Limitations: non verbal-adult
Time Seen by Provider: 02/07/25 07:13
Nursing documentation reviewed up to this point in time: agreed with
History of Present Illness
History of Present Illness:
The patient is a 59-year-old man with a past medical history of anoxic brain injury, with a chronic trach and feeding tube, who was sent in by ambulance after his noticed that his GJ tube was clogged. Patient does not offer any history.
Past History
Past History
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
ulcers) and Other (Iron def anemia, Fracture clavicle)
ED Past Surgical History: Appendectomy, Orthopedic and Other (Feeding tube, Prior trach with removal)
Social History
Tobacco: Non-smoker
Alcohol: None
Drug: None
Personal:
Living: with family
Employment: Disabled
Family History
Family History: Other ( sick)
Review of Systems
Review of Systems
Allergies reviewed?: Yes
Unable to obtain full review of systems at this time due to: non-verbal
Other source history: ambulance crew
All Other Systems: Not applicable
Phy Exam
Physical Exam
Physical Exam:
Physical Exam
General: Noninteractive, chronically ill
Neck: supple. Trach with vent
Heart: s1/s2 regular rate and rhythm,
Lungs: No sign of respiratory distress. Ventilated
Abdomen: Soft, minimally distended, GJ tube. When I tried to flush it both ports are clogged
Neuro: In contractures, not interactive
Skin: no rash
Psychiatric: Noninteractive
Extremities: no edema.
Course
Orders/Labs/Results
Orders:
Orders
02/07/25 08:00
[facility] CONSULT Urgent
Consulting Provider: Bj Dawkins
Was physician already notified: Yes
Procedure being ordered, including laterality if applicable: replace gj tube
Acknowledgement that appropriate orders are entered: Yes
02/07/25 13:24
Levetiracetam [Keppra] 750 mg PO NOW STA
02/07/25 13:27
Amiodarone [Pacerone] 200 mg PO NOW STA
02/07/25 13:28
Levothyroxine [Synthroid] 50 mcg PO NOW STA
02/07/25 13:29
Metoprolol [Lopressor] 25 mg PO NOW STA
02/07/25 13:40
Valproic Acid Syrup [Depakene] 125 mg PO NOW STA
Vital Signs
Initial and Last Documented VS:
Initial Vital Signs
Temp Pulse Resp BP Pulse Ox
99.0 F 99 24 106/77 91
02/07/25 02:13 02/07/25 02:13 02/07/25 02:13 02/07/25 02:13 02/07/25 02:13
Last Documented Vital Signs
Temp Pulse Resp BP Pulse Ox
99.0 F 92 18 114/82 95
02/07/25 02:13 02/07/25 10:00 02/07/25 10:00 02/07/25 11:00 02/07/25 11:00
MDM/Problems Addressed
Differential Diagnosis Includes:
Clogged GJ tube, dislodged GJ tube
MDM/Problems Addressed:
Patient presents with acute clogging of the GJ tube
*Pulse Oximetry
SaO2: 95
Nasal Cannula flow liters per minute: 6
Oxygen Mode of Delivery: Trach collar
Patient hypoxic: no
Comment: 95% on 6 L
*EKG
Interpreted by ED Provider?: NA
*Pattern Data Operator Interpretation
Rate: Pattern Data Operator- N/A
*Critical Care Note
Total Time (30-74mins, 75-104mins- exclusive of procedures): Not Applicable
Data Reviewed
Review of Other/Old Records Reveals: Other (Procedure note reviewed from IR from 12/25/2024 when patient had GJ tube replaced)
Source: ambulance crew
Update Note
Update Note:
12:00 pm interventional radiology able to unclog GJ tube with high-pressure flushing.
I made patient's aware over the phone that we are able to unclog the tube. I also discussed with the patient's that we will give him his morning medications which include metoprolol, amiodarone, Keppra, levothyroxine and Depakote.
ED Attending Note
-
Portions of this chart may have been created with voice recognition software.� Occasional wrong word or��sound alike� substitutions may have occurred due to the inherent limitations of voice recognition software.
Discharge Plan
Departure
Patient Disposition: Home (Routine Discharge)
Date of Disposition: 02/07/25
Time of Disposition: 13:29
Patient with high blood pressure during this ER visit?: No
Condition: Good
Covid-19: Not Applicable
Discharge Problem:
Clogged feeding tube
Instructions: How to Care for Your Gastrostomy Tube
Prescriptions:
No Action
atorvastatin 40 MG tablet
40 mg feeding tube HS
acetaminophen 325 MG tablet
650 mg feeding tube Q4HPRN PRN (Reason: mild pain, temp>100.4)
albuterol sulfate 2.5 MG/3 ML solution for nebulization
2.5 mg inhalation R [id number] PRN (Reason: sob)
amiodarone [Pacerone] 200 MG tablet
200 mg feeding tube DAILY
ascorbic acid (vitamin C) [Vitamin C] 500 mg Tablet
500 mg feeding tube DAILY
ferrous sulfate 300 mg (60 mg iron)/5 mL Liquid
300 mg feeding tube BID
levetiracetam [Keppra] 100 mg/mL Solution
750 mg feeding tube BID
Santyl 250 unit/gram Ointment
1 applic TOPICAL DAILY
metoprolol tartrate 25 mg Tablet
25 mg feeding tube Q12 30 Days Qty: 60 0RF
Dakin's Solution 0.125 % Solution
1 applic topical DAILY Qty: 473 0RF
Probiotic 10 billion cell capsule
10,000 mmu cells feeding tube DAILY Qty: 10 0RF
miconazole nitrate [Miconazorb AF] 2 % powder
1 applic topical DAILYPRN PRN (Reason: soilage/drainage)
amoxicillin-pot clavulanate 875-125 mg tablet
1 tab feeding tube Q12H Qty: 10 0RF
ciprofloxacin [Cipro] 500 mg/5 mL suspension,microcapsule recon
500 mg PO Q12H Qty: 45 0RF
valproic acid (as sodium salt) 250 mg/5 mL Solution
125 mg feeding tube BID 30 Days Qty: 150 0RF
divalproex 125 mg capsule, delayed rel sprinkle
1,250 mg PO BID
Patient Comments:
12/25/24: confirmed with [facility] 10 caps 125 mg sprinkle cap via Tube BID - last level checked 12/02/24 = 50
Referrals:
UNKNOWN - PT DOES,NOT KNOW [Family Provider]
Interventions
Interventions:
*Risk Screen - Suicide Last Done: 02/07/25 02:13
*General Assessment Last Done: 02/07/25 02:13
*Neglect/Abuse Screening Last Done: 02/07/25 02:13
*ED- Fall Risk Assessment Last Done: 02/07/25 02:13
*ED COVID-19 Vaccine History Last Done: 02/07/25 02:13
UR-Oqbazb-Ydqqeremuy Assessment Last Done: 02/07/25 08:00
ED-Male Genitourinary Assessment Last Done: 02/07/25 08:00
Discharge Date and Time
Print Language: JAPANESE
[2025-02-07] MEDS: SYNTHROID 50 MCG PO (13:44)
[2025-02-07] MEDS: PACERONE 200 MG PO (13:44)
[2025-02-07] MEDS: KEPPRA 750 MG PO (13:45)
[2025-02-07] MEDS: LOPRESSOR 25 MG PO (13:45)
[2025-02-07] MEDS: DEPAKENE 125 MG PO (13:48)
--- NOTE | 2025-02-07 15:13 | EDRN ---
Reviewed discharge instructions with patient's over the phone. Report given to Acute Care staff.
== END 2025-02-07 15:00 | disposition home or self-care (01) ==
LOC: EMR 02:08
PROVIDERS: CONSULT PHYSICIAN Radiology Diagnostic Radiology; EMERGENCY PHYSICIAN Emergency Medicine
DX: Z43.1 Encounter for attention to gastrostomy (principal); I48.91 Unspecified atrial fibrillation; I10 Essential (primary) hypertension; K21.9 Gastro-esophageal reflux disease without esophagitis; R56.9 Unspecified convulsions; D50.9 Iron deficiency anemia, unspecified; N28.9 Disorder of kidney and ureter, unspecified; G82.50 Quadriplegia, unspecified; Z93.0 Tracheostomy status; Z87.820 Personal history of traumatic brain injury; Z86.74 Personal history of sudden cardiac arrest; Z86.16 Personal history of COVID-19; Z86.73 Personal history of transient ischemic attack (TIA), and cerebral infarction without residual deficits; Z88.8 Allergy status to other drugs, medicaments and biological substances
CPT/HCPCS: 99283

== ENCOUNTER → 2025-02-24 08:10 | Emergency (ER) | payer MEDICARE, OTHER, SELFPAY ==
[2025-02-24 08:18] VITALS: BP 129/46
--- NOTE | 2025-02-24 08:22 | ED.GENMED ---
History of Present Illness
General
Chief Complaint: Catheter/Tube Problem
Source: records and ambulance crew
Exam Limitations: clinical condition
Time Seen by Provider: 02/24/25 08:16
Nursing documentation reviewed up to this point in time: agreed with
History of Present Illness
History of Present Illness:
59-year-old male with extensive medical history anoxic brain injury, quadriplegia with severe contractions, chronic GJ tube who presents to the emergency room via EMS for evaluation after noted GJ tube to be clogged. Patient was seen 2 weeks
ago with similar issue and tube was able to be declogged in the emergency room. Patient cannot meaningfully participate in history due to his chronic medical conditions. I spoke to his directly on the phone�she says that she noticed that she
was getting some resistance in the tube yesterday and was not able to flush despite multiple attempts at clearing clogged overnight and this morning.
Past History
Past History
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
ulcers) and Other (Iron def anemia, Fracture clavicle)
ED Past Surgical History: Appendectomy, Orthopedic and Other (Feeding tube, Prior trach with removal)
Social History
Tobacco: Non-smoker
Alcohol: None
Drug: None
Personal:
Living: with family
Employment: Disabled
Family History
Family History: Other ( sick)
Review of Systems
Review of Systems
Unable to obtain full review of systems at this time due to: non-verbal
All Other Systems: Not applicable
Phy Exam
Physical Exam
Physical Exam:
General: Chronically ill-appearing
HEENT: Tracheostomy in place
CV: No evidence of cyanosis
Resp: No accessory muscle use
Abd: Non-distended; GJ tube in place with no drainage around the site, no erythema around the insertion site, tube appears intact
Extremities: Severely contracted extremities
Neuro: Alert
Scores
Heart Failure Risk
Heart Failure Risk Score: Not Applicable
Heart Score for Chest Pain Patients
STEMI patient?: Not applicable
Withdrawal Assessment of Alcohol
Withdrawal Assessment Completed?: Not applicable
Course
Vital Signs
Initial and Last Documented VS:
Initial Vital Signs
Temp Pulse Resp BP Pulse Ox
36.6 C 71 20 129/46 97
02/24/25 08:18 02/24/25 08:18 02/24/25 08:18 02/24/25 08:18 02/24/25 08:18
Last Documented Vital Signs
Temp Pulse Resp BP Pulse Ox
36.6 C 71 20 129/46 97
02/24/25 08:18 02/24/25 08:18 02/24/25 08:18 02/24/25 08:18 02/24/25 08:18
MDM/Problems Addressed
Differential Diagnosis Includes:
Clogged GJ tube
MDM/Problems Addressed:
59-year-old male presents with clogged GJ tube. Similar issue a few weeks ago. Nurse tried some initial flushing with warm water and then instilled some stephen valentino; I then personally flush the tube with free water with steady continuous pressure
and was able to loosen clogged. Both ports tested and flowing freely without resistance. I spoke to the patient's at length and provided update. Stable for discharge home.
Chronic conditions affecting care:
Quadriplegia
*Pulse Oximetry
SaO2: 97
Patient hypoxic: no (97%)
*Critical Care Note
Total Time (30-74mins, 75-104mins- exclusive of procedures): Not Applicable
Data Reviewed
Review of Other/Old Records Reveals: Records
Source: records and spouse
ED Attending Note
-
Portions of this chart may have been created with voice recognition software.� Occasional wrong word or��sound alike� substitutions may have occurred due to the inherent limitations of voice recognition software.
Discharge Plan
Departure
Patient Disposition: Home (Routine Discharge)
Date of Disposition: 02/24/25
Time of Disposition: 09:21
Patient with high blood pressure during this ER visit?: No
Discharge Problem:
Clogged feeding tube
Instructions: How to care for a G tube or G button
Prescriptions:
No Action
atorvastatin 40 MG tablet
40 mg feeding tube HS
acetaminophen 325 MG tablet
650 mg feeding tube Q4HPRN PRN (Reason: mild pain, temp>100.4)
albuterol sulfate 2.5 MG/3 ML solution for nebulization
2.5 mg inhalation R [id number] PRN (Reason: sob)
amiodarone [Pacerone] 200 MG tablet
200 mg feeding tube DAILY
ascorbic acid (vitamin C) [Vitamin C] 500 mg Tablet
500 mg feeding tube DAILY
ferrous sulfate 300 mg (60 mg iron)/5 mL Liquid
300 mg feeding tube BID
levetiracetam [Keppra] 100 mg/mL Solution
750 mg feeding tube BID
Santyl 250 unit/gram Ointment
1 applic TOPICAL DAILY
metoprolol tartrate 25 mg Tablet
25 mg feeding tube Q12 30 Days Qty: 60 0RF
Dakin's Solution 0.125 % Solution
1 applic topical DAILY Qty: 473 0RF
Probiotic 10 billion cell capsule
10,000 mmu cells feeding tube DAILY Qty: 10 0RF
miconazole nitrate [Miconazorb AF] 2 % powder
1 applic topical DAILYPRN PRN (Reason: soilage/drainage)
amoxicillin-pot clavulanate 875-125 mg tablet
1 tab feeding tube Q12H Qty: 10 0RF
ciprofloxacin [Cipro] 500 mg/5 mL suspension,microcapsule recon
500 mg PO Q12H Qty: 45 0RF
valproic acid (as sodium salt) 250 mg/5 mL Solution
125 mg feeding tube BID 30 Days Qty: 150 0RF
divalproex 125 mg capsule, delayed rel sprinkle
1,250 mg PO BID
Patient Comments:
12/25/24: confirmed with [facility] 10 caps 125 mg sprinkle cap via Tube BID - last level checked 12/02/24 = 50
Referrals:
Ramsey Frey MD [Family Provider, Internal Medicine] - Call in 1-3 days for appt
Activity Restrictions/Additional Instructions:
Thank you for visiting the Emergency Department at [facility].
1. Please schedule a follow up appointment as directed. Call first thing tomorrow morning to make an appointment.
2. If indicated, please take your medications as instructed and indicated on discharge paperwork.
3. If any of your symptoms do not improve, or persist, or become more severe within 6-12 hours, please return to the emergency department for further care.
4. Please return to the emergency department if you develop a headache, neck pain/stiffness, fever greater than 100.4F, chest pain, shortness of breath, persistent nausea, vomiting, slurred speech, difficulty walking, numbness/tingling, weakness,
signs of infection or any other symptoms that are worrisome to you.
Please call [phone] if you have any questions.
Interventions
Interventions:
*Risk Screen - Suicide Last Done: 02/24/25 08:18
*General Assessment Last Done: 02/24/25 08:18
*Neglect/Abuse Screening Last Done: 02/24/25 08:18
*ED- Fall Risk Assessment Last Done: 02/24/25 08:18
Discharge Date and Time
Print Language: COMORAN
== END | disposition home or self-care (01) ==
LOC: EMR 08:10
PROVIDERS: EMERGENCY PHYSICIAN Emergency Medicine; FAMILY PHYSICIAN Internal Medicine
DX: K94.23 Gastrostomy malfunction (principal); G82.50 Quadriplegia, unspecified; I48.91 Unspecified atrial fibrillation; R56.9 Unspecified convulsions; I10 Essential (primary) hypertension; K21.9 Gastro-esophageal reflux disease without esophagitis; D50.9 Iron deficiency anemia, unspecified; N28.9 Disorder of kidney and ureter, unspecified; Z93.0 Tracheostomy status; Z86.74 Personal history of sudden cardiac arrest; Z87.820 Personal history of traumatic brain injury; Z86.16 Personal history of COVID-19
CPT/HCPCS: 99283

== ENCOUNTER 2025-03-16 07:53 | Emergency (ER) | payer MEDICARE, OTHER, SELFPAY ==
[2025-03-16] VITALS (10 sets, daily range): BP systolic 91–164; BP diastolic 75–108
--- NOTE | 2025-03-16 08:17 | ED.GENMED ---
History of Present Illness
General
Chief Complaint: Catheter/Tube Problem
Source: ambulance crew
Exam Limitations: clinical condition
Time Seen by Provider: 03/16/25 08:02
History of Present Illness
History of Present Illness:
Patient was sent in for a damage to cut GJ tube. No other complaints apparently per family. Waiting to discuss with family. Patient unable to add history
Past History
Past History
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
ulcers) and Other (Iron def anemia, Fracture clavicle)
ED Past Surgical History: Appendectomy, Orthopedic and Other (Feeding tube, Prior trach with removal)
Social History
Tobacco: Non-smoker
Alcohol: None
Drug: None
Personal:
Living: with family
Employment: Disabled
Family History
Family History: Other ( sick)
Review of Systems
Review of Systems
Unable to obtain full review of systems at this time due to: non-verbal
All Other Systems: Not applicable
Phy Exam
Physical Exam
Physical Exam:
GENERAL: Contracted. Nonverbal. No interaction.
EYE: Orbits normal.
NECK: Supple, tracheostomy in place
CARDIAC: Regular rate and rhythm
LUNGS: No respiratory distress but audible coarse rhonchi at times
ABDOMEN: Soft, without focal tenderness or distention. GJ tube in place. No TELLY tube inflammatory changes. However tube is cut approximately 3 to 4 cm from the insertion
NEUROLOGICAL: Unresponsive nonverbal
SKIN: Warm and dry
MUSCULOSKELETAL: Contracted
Course
Orders/Labs/Results
Orders:
Orders
03/16/25 08:19
Consult Interventional Radiology [[facility] CONSULT] Urgent
Consulting Provider: Bj Dawkins
Was physician already notified: Yes
Procedure being ordered, including laterality if applicable: damaged gj tube
Acknowledgement that appropriate orders are entered: Yes
03/16/25 10:37
IV Insert/Care/Rem.- Treatment PRN
0.9% Sodium Chloride 500 ml [Nss] 500 ml IV BOLUS
Levetiracetam Injectable [Keppra] 750 mg IV NOW STA
03/16/25 11:27
Basic Metabolic Panel Urgent
Complete Blood Count/With Diff Urgent
03/16/25 12:[address] Non Medication Order As Directed
Physician Order: may place foot iv
Above order entered?: Yes
Abnormal Lab Results
03/16/25
11:27
WBC 13.7 H 10^3/uL
(4.8-10.8)
RBC 3.23 L 10^6/uL
(4.70-6.10)
Hgb 11.4 L g/dL
(13.0-18.0)
Hct 34.5 L %
(39.0-52.0)
MCV 106.8 H fL
(80.0-94.0)
MCH 35.3 H pg
(27.0-31.0)
Abs Immat Gran (auto) 0.1 H 10^3/uL
(0-0.05)
Absolute Neuts (auto) 9.4 H 10^3/uL
(1.4-6.5)
Absolute Monos (auto) 1.1 H 10^3/uL
(0.1-0.6)
Absolute Eos (auto) 1.2 H 10^3/uL
(0-0.7)
Lymphocytes % 13.5 L %
(20.5-51.1)
Eosinophils % 8.9 H %
(0-6)
Carbon Dioxide 31 H mmol/L
(22-30)
BUN 29 H mg/dl
(9-20)
03/16/25 11:27
03/16/25 11:27
Vital Signs
Initial and Last Documented VS:
Initial Vital Signs
Pulse Ox
90
03/16/25 08:06
Last Documented Vital Signs
Temp Pulse Resp BP Pulse Ox
98.1 F 91 20 129/75 96
03/16/25 08:14 03/16/25 15:22 03/16/25 20:44 03/16/25 20:01 03/16/25 20:44
MDM/Problems Addressed
Differential Diagnosis Includes:
Damage GJ tube the clearly needs replacement. No other acute issues described. Has borderline pulse ox is on room air but this apparently is normal. He is in no respiratory distress.
*Pulse Oximetry
SaO2: 90
Oxygen Mode of Delivery: Room air
Patient hypoxic: no (96 2 l)
*Critical Care Note
Total Time (30-74mins, 75-104mins- exclusive of procedures): Not Applicable
Data Reviewed
Review of Other/Old Records Reveals: Labs, Records, Operative Reports and Testing
Update Note
Update Note:
Patient has remained stable. Currently went over to IR. Has a leukocytosis but no acute infectious issues. had been updated earlier in the day
ED Attending Note
-
Portions of this chart may have been created with voice recognition software.� Occasional wrong word or��sound alike� substitutions may have occurred due to the inherent limitations of voice recognition software.
Discharge Plan
Departure
Patient Disposition: Home (Routine Discharge)
Date of Disposition: 03/16/25
Time of Disposition: 17:41
Patient with high blood pressure during this ER visit?: No
Discharge Problem:
Broken GJ tube
Instructions: How to Care for Your Gastrostomy Tube, BLOOD PRESSURE
Prescriptions:
No Action
atorvastatin 40 MG tablet
40 mg feeding tube HS
acetaminophen 325 MG tablet
650 mg feeding tube Q4HPRN PRN (Reason: mild pain, temp>100.4)
albuterol sulfate 2.5 MG/3 ML solution for nebulization
2.5 mg inhalation R [id number] PRN (Reason: sob)
amiodarone [Pacerone] 200 MG tablet
200 mg feeding tube DAILY
ascorbic acid (vitamin C) [Vitamin C] 500 mg Tablet
500 mg feeding tube DAILY
ferrous sulfate 300 mg (60 mg iron)/5 mL Liquid
300 mg feeding tube BID
levetiracetam [Keppra] 100 mg/mL Solution
750 mg feeding tube BID
Santyl 250 unit/gram Ointment
1 applic TOPICAL DAILY
metoprolol tartrate 25 mg Tablet
25 mg feeding tube Q12 30 Days Qty: 60 0RF
Dakin's Solution 0.125 % Solution
1 applic topical DAILY Qty: 473 0RF
Probiotic 10 billion cell capsule
10,000 mmu cells feeding tube DAILY Qty: 10 0RF
miconazole nitrate [Miconazorb AF] 2 % powder
1 applic topical DAILYPRN PRN (Reason: soilage/drainage)
amoxicillin-pot clavulanate 875-125 mg tablet
1 tab feeding tube Q12H Qty: 10 0RF
ciprofloxacin [Cipro] 500 mg/5 mL suspension,microcapsule recon
500 mg PO Q12H Qty: 45 0RF
valproic acid (as sodium salt) 250 mg/5 mL Solution
125 mg feeding tube BID 30 Days Qty: 150 0RF
divalproex 125 mg capsule, delayed rel sprinkle
1,250 mg PO BID
Patient Comments:
12/25/24: confirmed with [facility] 10 caps 125 mg sprinkle cap via Tube BID - last level checked 12/02/24 = 50
Referrals:
UNKNOWN,NO INTERVIEW [Family Provider]
Activity Restrictions/Additional Instructions:
Follow-up closely with his primary physician
Interventions
Interventions:
*Risk Screen - Suicide Last Done: 03/16/25 08:07
*General Assessment Last Done: 03/16/25 15:20
*Neglect/Abuse Screening Last Done: 03/16/25 08:07
*ED- Fall Risk Assessment Last Done: 03/16/25 18:27
*ED COVID-19 Vaccine History Last Done: 03/16/25 15:20
*Nursing Disposition Last Done: 03/16/25 20:18
NT-Ajwdef-Ywdlzyxrhu Assessment Last Done: 03/16/25 15:19
ED-Male Genitourinary Assessment Last Done: 03/16/25 15:20
Discharge Date and Time
Discharge Date/Time: 03/16/25 20:45
Print Language: LATVIAN
--- NOTE | 2025-03-16 08:26 | RESPNOTE ---
patient set up with 28% TC @ 5L O2, SpO2 93-94%. suctioned stoma for copious thick yellow/green mucus.
[2025-03-16 11:45] LABS: Hematocrit 34.5 % (39.0-52.0); Hemoglobin 11.4 g/dL (13.0-18.0); Mean Corp Hgb Conc. 33.0 g/dL (33.0-37.0); Mean Corpuscular Volume 106.8 fL (80.0-94.0); Nucleated Red Blood Cells % 0 % (-); Platelet Count 202 10^3/uL (130-400); Red Cell Dist. Width 13.6 % (11.5-14.5)
[2025-03-16 12:04] LABS: Blood Urea Nitrogen 29 mg/dl (9-20); Calcium 9.3 mg/dl (8.4-10.2); Carbon Dioxide 31 mmol/L (22-30); Chloride 100 mmol/L (98-107); Glucose 82 mg/dl (70-99); Potassium 4.5 mmol/L (3.5-5.1); Sodium 135 mmol/L (135-145); eGFR > 60.00
[2025-03-16] MEDS: KEPPRA 750 MG IV (12:31)
[2025-03-16] MEDS: NSS 500 IV (12:34)
== END 2025-03-16 20:45 | disposition home or self-care (01) ==
LOC: EMR 07:53
PROVIDERS: CONSULT PHYSICIAN Radiology Diagnostic Radiology; EMERGENCY PHYSICIAN Emergency Medicine
DX: K94.23 Gastrostomy malfunction (principal); G82.50 Quadriplegia, unspecified; I10 Essential (primary) hypertension; Z86.74 Personal history of sudden cardiac arrest; Z90.49 Acquired absence of other specified parts of digestive tract; Z86.73 Personal history of transient ischemic attack (TIA), and cerebral infarction without residual deficits
CPT/HCPCS: 99284; 96374; 96361; 49452; 80048; 85025; C1769

== ENCOUNTER 2025-04-27 20:15 | Inpatient (IN) | payer MEDICARE, OTHER, SELFPAY ==
[2025-04-27] VITALS (30 sets, daily range): BP systolic 77–135; BP diastolic 54–104
--- NOTE | 2025-04-27 16:18 | ED.GENMED ---
History of Present Illness
General
Chief Complaint: Seizure
Time Seen by Provider: 04/27/25 16:18
History of Present Illness
History of Present Illness:
FOCUSED PAST MEDICAL HISTORY
- History of anoxic brain injury related to respiratory arrest related to COVID
REVIEW OF OLD RECORDS
- The patient has been into the emergency department several times related to feeding tube dysfunction. The patient was admitted in July 2024 related to sepsis/cellulitis.
Note:
CHIEF COMPLAINT(S)
was primarily concerned of increasing seizure activity. Unresponsiveness, hypotension, fever, and tachycardia suggestive of sepsis.
HISTORY OF PRESENT ILLNESS
I spoke to the over the phone for history. The patient has a history of anoxic brain injury and is on trach collar at 5 L/min. After the initial anoxic brain injury, the patient had some improvement but then started having seizures a couple
of years ago. He is currently on Keppra and valproic acid. Given the recent increase in seizures, states thatsomebody called in benzos for him which help with seizures. He has been having increasing seizure activity which is the main reason
for visit according to the . He came in by ambulance. The patient provides no history. The states that normally at best, he may look at somebody as they entered the room but does not have any other motor ability.
The patient is a 59-year-old male who presents with a critical condition characterized by hypotension and tachycardia. Additionally, the patient has a rectal temperature exceeding 101�F. His eyes are open; however, he does not follow commands. There
is a GastroJejunostomy tube noted in the epigastrium and a urinary catheter in place. The patient exhibits flexion contractures of all extremities with an absence of range of motion in these areas. Based on the clinical presentation, the patient is
suspected to be experiencing septic shock.
PHYSICAL EXAM
-General: Appears critically ill, febrile and hypotensive
-HEENT: Somewhat dry oral mucosa
-Cardiovascular: Tachycardic
-Pulmonary: No respiratory distress, breathing is nonlabored, breath sounds slightly coarse
-Abdomen: Soft and nontender with no peritoneal signs, [place] catheter in place draining very cloudy urine, GJ tube in the epigastrium
-Neurologic: Nearly absent strength in all extremities
-Extremities: Nearly absent range of motion in all extremities
-Psychiatric: Nonverbal
-Skin: Skin breakdown over the lumbar and sacral region with concern for wound infection
-Musculoskeletal: Absent range of motion in all extremities, flexion contractures noted.
PROBLEM LIST
Acute:
- Septic shock
- Hypotension
- Tachycardia
- Fever
- Seizure-like activity
PLAN
The focus of care is immediate stabilization due to suspected septic shock. This includes administration of intravenous fluids, broad-spectrum antibiotics, and possibly vasopressors to manage hypotension. Further diagnostic workup, including blood
cultures and imaging, is warranted to identify the source of infection and guide specific treatment.
DIFFERENTIAL DIAGNOSIS
The Differential Diagnosis includes, in no particular order and is not limited to:
1. Sepsis
2. Septic shock
3. Acute bacterial infection
4. Meningitis
5. Pneumonia
6. Urinary tract infection
7. Gastrointestinal infection
8. Endocarditis
9. Viral infections
10. Drug-induced fever
SUMMARY OF ENCOUNTER
The patient, a 59-year-old male, presented to the emergency department with symptoms suggestive of septic shock, including hypotension, tachycardia, and fever. The clinical picture, along with an elevated white blood cell count of 12.7 x10^9/L,
indicated a likely infection, possibly originating from the skin of the low back/sacral region. Although the lactic acid level was normal, the persistent hypotension raised concerns for sepsis. In the emergency department, he received broad-spectrum
antibiotics, vancomycin (generic for Vanc) and piperacillin-tazobactam (generic for Zosyn), due to a history of pseudomonas infection. Two liters of IV fluids were administered to address hypotension. Admission to the hospital was planned for
further management. Ceribell (possibly a misspelling or incorrect drug name) was used to address concerns of seizure activity, although no significant findings were observed.
DISPOSITION
Admission planned to the hospital for further management of suspected sepsis.
ASSESSMENT
The clinical presentation and lab findings suggest septic shock with a probable source of infection from the skin.
EMERGENCY TREATMENTS ADMINISTERED
- 2 liters of intravenous fluids for hypotension
- Vancomycin and piperacillin-tazobactam for infection
- Cerebell (unclear drug name, possibly addressing seizure concerns)
PLAN
Immediate hospitalization for comprehensive management of suspected septic shock, which may include ongoing use of IV antibiotics and continued monitoring of vital signs and lab values.
INDEPENDENT REVIEW OF LABS AND INTERPRETATION OF TESTS
My independent review of CBC is an elevated white blood cell count at 12.7 x10^9/L, suggestive of infection.
My independent review of serum lactic acid is that it is within normal limits.
My independent interpretation of the chest x-ray is that it is clear.
MEDICAL DECISION MAKING
-Complexity of Data Reviewed: Chronic conditions affecting care, none mentioned. Differential Diagnosis includes sepsis, septic shock, acute bacterial infection, etc.
-Data:
Category 1
No non-emergency department records reviewed.
Category 3
Discussion of management with other physician for admission and antibiotic therapy.
DIAGNOSIS
- Septic shock (ICD-10: R65.21)
- Sepsis, unspecified organism (ICD-10: A41.9)
- Skin infection (ICD-10: L08.9)
CRITICAL CARE TIME
I provided critical care time due to a high probability of clinically significant, life-threatening deterioration. I personally spent this critical care time directly managing the patient.
RADIOLOGY
- Chest x-ray clear
EKG
- Sinus 108, left axis deviation, incomplete right bundle branch block
Past History
Past History
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
ulcers) and Other (Iron def anemia, Fracture clavicle)
ED Past Surgical History: Appendectomy, Orthopedic and Other (Feeding tube, Prior trach with removal)
Social History
Tobacco: Non-smoker
Alcohol: None
Drug: None
Personal:
Living: with family
Employment: Disabled
Family History
Family History: Other ( sick)
Phy Exam
Physical Exam
Physical Exam:
See HPI
Sepsis
Sepsis Screening
Sepsis Assessment: Septic Shock
Sepsis Screening: Vasopressor support required
Sepsis Screen
Sepsis Screen: Septic Shock
Date: 04/27/25
Time: 19:11
Course
Orders/Labs/Results
Orders:
Orders
04/27/25 16:07
Electrocardiogram (*1) Urgent
Reason for Study: Other
Other Reason for Exam: Possible Sepsis
CR Chest Portable - 1 View Urgent
Comment:
Reason For Exam: fever
Reason Study Needs to be Portable: Patient Unstable
04/27/25 16:08
EKG- Treatment ONCE
04/27/25 16:15
Blood Culture Q20M
JOHANA Source: Blood/Venous
Specimen Description:
Comment: Urgent from separate sites. If patient screens positive for possible sepsis
04/27/25 16:18
Complete Blood Count/With Diff Urgent
Comprehensive Metabolic Panel Urgent
Lactic Acid Q4H
Comment: ON ICE, CANCEL 2ND ORDER IF FIRST LACTIC ACID LEVEL <2
Blood Culture Q20M
JOHANA Source: Blood/Venous
Specimen Description:
Comment: Urgent from separate sites. If patient screens positive for possible sepsis
04/27/25 16:33
Ceribell [Rapid Point of Care EEG (ED/ICU ONLY)] Q1H
Indications for use:: Altered Mental Status
04/27/25 16:40
Acetaminophen [Tylenol/Feverall] 650 mg RECTAL NOW STA
04/27/25 16:41
Acetaminophen [Tylenol/Feverall] 650 mg .ROUTE .STK-MED ONE
04/27/25 16:50
0.9% Sodium Chloride 1000 ml [Nss] 1,000 ml IV BOLUS
04/27/25 16:53
COVID-19 Antigen Urgent
Source: Nasal Swab
Valproic Acid Level [Depakane] Urgent
Blood Culture Urgent
JOHANA Source: Blood/Venous
Specimen Description:
Influenza A+B Rapid Molecular Urgent
JOHANA Source: Nasal Swab
Specimen Description:
04/27/25 16:55
Piperacillin/Tazo 3.375 Gram [Zosyn] 3.375 gram in 50 ml IV NOW
04/27/25 17:44
Vancomycin [Vancocin] 1,500 mg 0.9% Sodium Chloride 500 ml [Nss] 500 ml IV NOW
04/27/25 17:46
0.9% Sodium Chloride 1000 ml [Nss] 1,000 ml IV BOLUS
04/27/25 18:11
Urinalysis Reflex To Culture Urgent
Date Specimen was Collected: 04/27/25
Time Specimen was Collected: 18:10
Urine Microscopic Reflex Cult Urgent
Urine Culture Urgent
JOHANA Source: U
Specimen Description:
Date Specimen was Collected: 04/27/25
Time Specimen was Collected: 18:10
04/27/25 18:19
Levetiracetam Injectable [Keppra] 1,000 mg IV NOW STA
Valproic Acid Syrup [Depakene] 125 mg PO NOW STA
04/27/25 18:30
NORepinephrine 4 MG/250 ML [Levophed] 4 mg in 250 ml IV PER PROTOCOL
Initial dose in mcg/min, then titrate:: 2
Titrate to keep:: MAP > 65 mmHg
Titrate by mcg/min:: 1-2 mcg/min
Frequency of titrations (minutes):: 5
Maximum dose in ICU in mcg/min:: 30
Maximum dose in IMU in mcg/min:: 8
Maximum dose in IVU in mcg/min:: 4
Begin to taper infusion when:: Remained at goal for 4hrs
Taper by mcg/min:: 1-2 mcg/min
Frequency of taper (minutes) if patient maintains goal:: 30
Taper to off?: Yes
If infusion off & no longer maintaining goal:: Contact Provider
04/27/25 18:46
Sputum Culture [Respiratory Culture/Gram Stain] Urgent
JOHANA Source: Sputum
Specimen Description:
Comment: froom trach
Wound Culture [Wound/Abscess/Other Culture] Urgent
JOHANA Source: Buttock
Specimen Description:
Comment: sacral
Guaifenesin Solution [Robitussin] 200 mg PO NOW STA
04/27/25 18:53
Valproate Sodium [Depacon] 750 mg 0.9% Sodium Chloride 50 ml [Nss] 50 ml IV NOW
04/27/25 19:00
0.9% Sodium Chloride 1000 ml [Nss] 1,000 ml IV 100 mls/hr
04/27/25 20:15
Lactic Acid Q4H
Comment: ON ICE, CANCEL 2ND ORDER IF FIRST LACTIC ACID LEVEL <2
Lactic Acid Urgent
04/28/25 07:00
Guaifenesin Solution [Robitussin] 600 mg PO Q12H
Abnormal Lab Results
04/27/25 04/27/25
16:18 18:11
WBC 12.7 H 10^3/uL
(4.8-10.8)
RBC 3.37 L 10^6/uL
(4.70-6.10)
Hgb 11.3 L g/dL
(13.0-18.0)
Hct 34.8 L %
(39.0-52.0)
MCV 103.3 H fL
(80.0-94.0)
MCH 33.5 H pg
(27.0-31.0)
MCHC 32.5 L g/dL
(33.0-37.0)
Absolute Neuts (auto) 8.6 H 10^3/uL
(1.4-6.5)
Absolute Monos (auto) 1.9 H 10^3/uL
(0.1-0.6)
Lymphocytes % 14.5 L %
(20.5-51.1)
Monocytes % 14.6 H %
(1.7-9.3)
Sodium 134 L mmol/L
(135-145)
Chloride 97 L mmol/L
(98-107)
Carbon Dioxide 32 H mmol/L
(22-30)
BUN 32 H mg/dl
(9-20)
Albumin 3.2 L g/dl
(3.5-5.0)
Urine Bacteria (Reflex) Many A
(Negative)
Urine Albumin (Reflex) 2+ A
(Neg - Trace)
04/27/25 16:18
04/27/25 16:18
Vital Signs
Initial and Last Documented VS:
Initial Vital Signs
Temp Pulse Resp BP Pulse Ox
38.6 C H 114 20 97/62 100
04/27/25 15:59 04/27/25 15:59 04/27/25 15:59 04/27/25 15:59 04/27/25 15:59
Last Documented Vital Signs
Temp Pulse Resp BP Pulse Ox
38.6 C H 106 15 87/57 95
04/27/25 15:59 04/27/25 18:46 04/27/25 18:46 04/27/25 18:46 04/27/25 18:46
*Pulse Oximetry
SaO2: 97
Nasal Cannula flow liters per minute: 5
Oxygen Mode of Delivery: Trach collar
Patient hypoxic: yes
*Critical Care Note
Total Time (30-74mins, 75-104mins- exclusive of procedures): 45 minutes
comment:
I have ordered Levophed as the patient had systolics in the 70s with low maps despite receiving 30 mL/kg of IV fluid resuscitation
ED Attending Note
-
Portions of this chart may have been created with voice recognition software.� Occasional wrong word or��sound alike� substitutions may have occurred due to the inherent limitations of voice recognition software.
Discharge Plan
Departure
Patient Disposition: Admit
Date of Disposition: 04/27/25
Time of Disposition: 17:53
Presentation/result/management discussed w/ accepting MD/DO: Hospitalist
Discharge Problem:
Sepsis
Prescriptions:
No Action
atorvastatin 40 MG tablet
40 mg feeding tube HS
acetaminophen 325 MG tablet
650 mg feeding tube Q4HPRN PRN (Reason: mild pain, temp>100.4)
albuterol sulfate 2.5 MG/3 ML solution for nebulization
2.5 mg inhalation R [id number] PRN (Reason: sob)
ascorbic acid (vitamin C) [Vitamin C] 500 mg Tablet
500 mg feeding tube DAILY
ferrous sulfate 300 mg (60 mg iron)/5 mL Liquid
300 mg feeding tube BID
levetiracetam [Keppra] 100 mg/mL Solution
750 mg feeding tube BID
Santyl 250 unit/gram Ointment
1 applic TOPICAL DAILY
metoprolol tartrate 25 mg Tablet
25 mg feeding tube Q12 30 Days Qty: 60 0RF
Dakin's Solution 0.125 % Solution
1 applic topical DAILY Qty: 473 0RF
miconazole nitrate [Miconazorb AF] 2 % powder
1 applic topical DAILYPRN PRN (Reason: soilage/drainage)
valproic acid (as sodium salt) 250 mg/5 mL Solution
125 mg feeding tube BID 30 Days Qty: 150 0RF
divalproex 125 mg capsule, delayed rel sprinkle
1,250 mg PO BID
Patient Comments:
12/25/24: confirmed with [facility] 10 caps 125 mg sprinkle cap via Tube BID - last level checked 12/02/24 = 50
Referrals:
UNKNOWN,NO INTERVIEW [Family Provider]
Interventions
Interventions:
*Risk Screen - Suicide Last Done: 04/27/25 16:09
*General Assessment Last Done: 04/27/25 16:05
*Neglect/Abuse Screening Last Done: 04/27/25 16:09
*ED- Fall Risk Assessment Last Done: 04/27/25 16:09
*ED COVID-19 Vaccine History Last Done: 04/27/25 16:09
ED- Cardiac Assessment Last Done: 04/27/25 17:41
ED- Neurological Assessment Last Done: 04/27/25 16:11
Discharge Date and Time
Print Language: VIET[place]ESE
[2025-04-27 16:34] LABS: Hematocrit 34.8 % (39.0-52.0); Hemoglobin 11.3 g/dL (13.0-18.0); Mean Corp Hgb Conc. 32.5 g/dL (33.0-37.0); Mean Corpuscular Volume 103.3 fL (80.0-94.0); Nucleated Red Blood Cells % 0 % (-); Platelet Count 169 10^3/uL (130-400); Red Cell Dist. Width 14.1 % (11.5-14.5)
[2025-04-27 16:42] LABS: ALT (SGPT) 14 U/L (0-50); AST (SGOT) 20 U/L (17-59); Albumin 3.2 g/dl (3.5-5.0); Alkaline Phosphatase 81 U/L (38-126); Blood Urea Nitrogen 32 mg/dl (9-20); Calcium 9.3 mg/dl (8.4-10.2); Carbon Dioxide 32 mmol/L (22-30); Chloride 97 mmol/L (98-107); Glucose 90 mg/dl (70-99); Potassium 4.0 mmol/L (3.5-5.1); Sodium 134 mmol/L (135-145); Total Protein 6.8 g/dl (6.3-8.2); eGFR > 60.00
[2025-04-27] MEDS: NSS 1000 IV ×5 (16:51→23:38)
[2025-04-27] MEDS: TYLENOL/FEVERALL 650 MG RECTAL (16:51)
[2025-04-27] MEDS: ZOSYN 50 IV (17:22)
[2025-04-27 17:29] LABS: COVID-19 Antigen Negative (Negative)
[2025-04-27 17:43] LABS: Depakane 68.2 ug/ml (50.0-120.0)
[2025-04-27] MEDS: VANCOCIN 530 MG IV (18:04)
[2025-04-27 18:21] LABS: Urine Character Clear (Clear)
--- NOTE | 2025-04-27 18:29 | HPS.HSE ---
Addendum entered and electronically signed by Tasia Vásquez MD 04/27/25 21:54:
This is an addendum to the H&P written by Riya Summers on 04/27/2025. �Patient seen and examined independently with [employer].
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
Pseudomonas, Streptococcus pyogenes, Proteus mirabilis, Enterococcus faecalis, Gayle auris, chronic bedbound status with chronic contractures, quadriplegia, pulmonary embolism, anemia of chronic disease, iron deficiency anemia, ESBL E. coli,
presenting with seizure activity noted for the past 3 to 4 days.
Multiple seizures involving twitching of the eyebrows and staring. �She called primary care physician who prescribed Ativan without improvement. �100.7 fever Noted at home.
Vital signs show fever of 101.4. �Tachycardia up to 114. �Blood pressure 97/62. �Patient has sacral decubitus ulcer which was unstageable.
Patient with focal seizures as well as septic shock.
Labs show leukocytosis. �Stable anemia of 11.3. �Urinalysis unremarkable. �Chest x-ray shows no acute disease. �
Patient with septic shock unclear source. �Could be sacral decubitus wound versus potential aspiration pneumonia not detected by chest x-ray. �Patient was given IV fluids. �Check blood cultures. �Sacral decubitus ulcer sent. �Broad-spectrum
antibiotics with vancomycin and Zosyn. �Levophed. �Check CT chest abdomen pelvis to localize the source.
Focal partial seizures likely from fever and sepsis. �Continue IV Depakote and Keppra. �Neurology consulted.
Single dose fluconazole for thrush.�
Original Note:
Family Physician
-
Family Physician: NO INTERVIEW UNKNOWN
Chief Complaint
-
seizures focal
History of Present Illness
59-year-old male from home where he lives with his who reported to ER he has had breakthrough seizures despite his Keppra and Depakote initially was improving with lorazepam 0.5 mg however he has had increased seizure activity prompting her to
call the ambulance. In the ER patient was noted to have 101 temperature was hypotensive 80s over 60s and tachycardic. He is bedbound with contracture of all extremities appears to have skin breakdown over the lumbar and sacral region when turned
in the ER. He has chronic indwelling GJ tube and [place] catheter in place with cloudy drainage. He has had history of Pseudomonas in sacral/iliac decub's in the past. He had bedside cerebel monitor placed to assess for current seizure activity
with no findings at current time. has reported multiple seizures X5 days Facial twitching eye brows move up increased right side / eye gaze numerous per day .she Also reported a temp on saturday 4 days 100.7 possibly 101F.
Patient has past medical history of COVID-19 infection with COVID pneumonitis, shock liver, multisystem organ dysfunction requiring intubation August 2024, anoxic brain injury/hemorrhagic CVA and cardiac arrest August 2021 [facility]
during COVID infection, paroxysmal A-fib August 2021, decubitus ulcers with sepsis right iliac and sacral 07/28/2024 MSSA, Pseudomonas, Streptococcus pyogenes, Proteus Mirabilis, Enterococcus faecalis, Gayle auris sacral August 2024, chronic
bedbound status with chronic contractures, quadriplegia, seizures post anoxic brain injury, anemia of chronic disease, iron deficiency anemia, GERD, E. coli ESBL urine June 2024,2023 per .
Medical History
Past Medical History
Past Medical History: Reports Other
Additional Past Medical History:
COVID-19 infection with COVID pneumonitis
Shock liver,multisystem organ dysfunction requiring intubation August 2024 due to COVID
Anoxic brain injury/hemorrhagic CVA nonverbal
Seizures post anoxic brain injury
Cardiac arrest August 2021 [facility] during COVID infection
paroxysmal A-fib August 2021
Decubitus ulcers with sepsis right iliac and sacral 07/28/2024 MSSA, Pseudomonas, Streptococcus pyogenes, Proteus Mirabilis, Enterococcus faecalis, Gayle auris sacral August 2024,
Chronic bedbound status with chronic contractures, quadriplegia
Anemia of chronic disease, iron deficiency anemia,
GERD
E. coli ESBL urine June 2024
PE 2023 per
Past Surgical History: Reports Other
Additional Past Surgical History:
Prior trach
Social History
Tobacco: Non-smoker
Alcohol: None
Drug: None
Personal:
Living: With Family ( Karyna)
Employment: Disabled
Family History
Family History: Not pertinent
Allergies / Home Medications
Allergies reflects when Allergies were last updated in [employer].
Home Medications with original date entered in [employer]
Allergy/Medication List:
Allergies
Allergy/AdvReac Type Severity Reaction Status Date / Time
levofloxacin Allergy seizure Verified 04/27/25 17:42
phenobarbital Allergy Unknown Verified 04/27/25 16:08
propofol Allergy per Grand Verified 04/27/25 17:42
View
Health
paperwork
Home Medications
acetaminophen 325 mg tablet 650 mg feeding tube Q4HPRN PRN mild pain, temp>100.4 12/30/21
albuterol sulfate 2.5 mg/3 mL (0.083 %) solution for nebulization 2.5 mg inhalation R [id number] PRN sob 12/30/21
atorvastatin 40 mg tablet 40 mg feeding tube HS High cholesterol 12/30/21
ascorbic acid (vitamin C) 500 mg tablet (Vitamin C) 500 mg feeding tube DAILY Supplement 06/12/24
ferrous sulfate 300 mg (60 mg iron)/5 mL oral liquid 300 mg feeding tube BID Supplement 06/12/24
levetiracetam 100 mg/mL oral solution (Keppra) 750 mg feeding tube BID Neurological Condition 06/12/24
collagenase clostridium histo. 250 unit/gram topical ointment (Santyl) 1 applic topical DAILY Infection 07/06/24
metoprolol tartrate 25 mg tablet 25 mg feeding tube Q12 Blood pressure 30 days #60 tabs 07/10/24
sodium hypochlorite 0.125 % solution (Dakin's Solution) 1 applic topical DAILY #473 mL 08/03/24
miconazole nitrate 2 % topical powder (Miconazorb AF) 1 applic topical DAILYPRN PRN soilage/drainage 08/18/24
levothyroxine 50 mcg tablet 50 mcg feeding tube DAILY@07 04/27/25
lorazepam 0.5 mg tablet 0.5 mg feeding tube PRN PRN seizure 04/27/25
valproic acid (as sodium salt) 250 mg/5 mL oral solution 875 mg feeding tube TID 04/27/25
Review of Systems
-
History Source: Patient
A 12 point ROS was completed and negative except as noted: Yes
Constitutional: Reports Fever and Chills
EENT: Reports Other (trache with thick white secretions pt coughing on needing suction)
Respiratory: Reports Cough (trache with thick white secretions pt coughing on needing suction); Denies Trouble Breathing
Cardiac: Reports Diaphoresis; Denies Palpitations
Abdomen/GI: Denies Nausea, Vomiting or Diarrhea
: Reports Prince ([place] cath in place )
Musculoskeletal: Denies Joint Pain or Edema
Skin: Reports Other (sacral decub unstageable , stage 1 bilat buttox decub); Denies Itching or Rash
Neurological: Reports Other (contracture bilat legs at knees, contracture arms )
Psych: Reports Calm
Physical Exam
Vital Signs
Vital Signs
Temp Pulse Resp BP Pulse Ox
101.4 F H 103 24 89/54 96
04/27/25 15:59 04/27/25 18:25 04/27/25 18:25 04/27/25 18:00 04/27/25 18:25
Physical Exam
General: Fever and Chills
HEENT: NormoCephalic, Anicteric, PERRLA, [place] Conjunctivae, No Ptosis and Other (oral thrush present , )
Respiratory: Other (trache with thick white secretions pt coughing on needing suction); No Wheezes, Rales or Rhonchi
Cardiac: S1/S2 and JVD; No Murmur, Rub, Gallop or Peripheral Edema
Breast: Deferred by me
GI: Soft, Non Tender, Non Distended, Normal Bowel Sounds and Other (gj tube present )
Rectal: Deferred by Provider
Genito-urinary: Prince ([place] cath)
Musculoskeletal: No Clubbing, No Cyanosis, No Edema and Other (chronic contractures bilat legs at knees and arms)
Skin: Warm and Dry
Neuro: Awake (nonverbal baseline); No Facial Droop or Tremors
Psych: Calm
Laboratory Results
-
04/27/25 16:18
04/27/25 16:18
Laboratory Results
Lactic Acid 1.3 mmol/L (0.7-2.0) 04/27/25 16:18
Total Bilirubin 0.5 mg/dl (0.2-1.3) 04/27/25 16:18
AST 20 U/L (17-59) 04/27/25 16:18
ALT 14 U/L (0-50) 04/27/25 16:18
Alkaline Phosphatase 81 U/L (38-126) 04/27/25 16:18
Impression/Plan
-
Impression/plan:
Admit to ICU
#Septic shock secondary to likely sacral decub unstageable/stage I bilateral buttocks lower back decub
#History of decubitus ulcers with sepsis right iliac sacral 07/28/2024 MSSA, Pseudomonas, Streptococcus pyogenes, Proteus Mirabilis, Enterococcus faecalis, Gayle auris sacral August 2024,
#Chronic bedbound status with contractures/quadriplegia
BP 89/56, 101.4F, HR 105,
- Wound culture
-IV NSS 2 L given continue IV NS at 100 cc an hour
-May require IV pressors
- IV vancomycin and IV Zosyn
-Tylenol via G-tube
- Wound care
- check CT abd pelvis with and without contrast
#Acute exacerbation of seizures in setting of sepsis
#Seizures post anoxic brain injury/Chronic Tremors to RIGHT ARM
- has reported multiple seizures X5 days Facial twitching eye brows move up increased right side / eye gaze numerous per day
Patient with cerebel placed to head however due to sweating unreliable results
- follows with Dr Melissa Frost [facility]
-PCP added Ativan 0.5 mg for breakthrough seizures last dose was 8 PM last night 04/26/2025
- Continue IV Depakote 875 ml mg tid (Depakote level within normal limits) I personally clarified this dose with patient's Karyna via phone
-Increase Keppra from 750 mg twice daily to 1000 mg twice daily
-Will give IV Keppra 1000 mg now, IV Depakote 750 mg now
- Consult Dr. Mcknight -recommends above medications, check mag, CK, TSH with free T4, single dose acyclovir 20 mg/kg
- EEG in a.m.
- IV Valium until focal seizures stop
#Copious trach secretions
#History of current trach collar with 5 L oxygen
-Check sputum culture
-Add guaifenesin 600 twice daily
- Mucomyst nebulizer to thin secretions
#Oral thrush
-Iv diflucan 100 mg once
#COVID-19 infection 08/15/2021 required intubation
#Presumed history of COVID October 2019, May 2021
#History of pneumomediastinum related to coughing
-Treated for COVID pneumonitis dexamethasone patient refused remdesivir
97% on trach collar with 5 L oxygen
#History of GJ tube replaced 07/31/2024, 03/16/2025
-Chronic dysphagia NPO
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
#Jevity [address] head August 2021 showed that he has multiple large areas of cerebral infarction bilaterally with areas of hemorrhagic
transformation with diffuse cerebral edema, mild left to right
midline shift.
#PE 2023 per
#Hypothyroidism
levothyroxine 50 cg po daily
#Paroxysmal A-fib August 2021
-Hold metoprolol due to hypotension
#Anemia of chronic disease
#Iron deficiency anemia
#History of shock liver multisystem organ dysfunction as well as renal failure in setting of COVID-19 infection August 2021
- Did have temporary dialysis
DVT prophylaxis
Subcu Lovenox
DNR per Karyna
[2025-04-27 18:31] LABS: Urine Red Blood Cell 0-2 /HPF (0-2); Urine Squamous Cell 0-2 /LPF (Few)
[2025-04-27] MEDS: KEPPRA 1000 MG IV (19:17)
[2025-04-27] MEDS: DEPACON 57.5 MG IV (19:58)
[2025-04-27 20:35] LABS: Magnesium 2.2 mg/dl (1.6-2.3)
--- NOTE | 2025-04-27 22:54 | W.PN.SEPSIS ---
Sepsis
Vital Signs
Temp Pulse Resp BP Pulse Ox
99.4 F 99 18 96/57 97
04/27/25 19:32 04/27/25 20:45 04/27/25 20:45 04/27/25 20:45 04/27/25 20:45
Physical Exam
Physical Exam:
A focused exam was performed after fluid resuscitation.
Capillary Refill
Bilateral Upper Extremity:
Sue Time: Less than 3 sec
Bilateral Lower Extremity:
Sue Time: Less than 3 sec
Pulse Evaluation
Bilateral Radial:
Pulse Evaluation: Present
Bilateral Dorsalis Pedis:
Pulse Evaluation: Present
[2025-04-27] MEDS: ZOVIRAX INJECTION 277 MG IV (23:10)
[2025-04-27] MEDS: VALIUM INJECTION 2 MG IV (23:36)
[2025-04-27] MEDS: LIPITOR 40 MG TUBE (23:37)
[2025-04-27] MEDS: FERROUS SULFATE ORAL LIQUID 300 MG TUBE (23:38)
[2025-04-27] MEDS: ROBITUSSIN 200 MG TUBE (23:38)
[2025-04-28] VITALS (28 sets, daily range): BP systolic 88–133; BP diastolic 56–89; BMI 25.6
[2025-04-28] MEDS: MUCOMYST 20% INH (01:15)
[2025-04-28] MEDS: DIFLUCAN 200 MG 50 MG IV (01:30)
--- NOTE | 2025-04-28 01:48 | PTCARENOTE ---
Rec'd pt from ED for septic shock possibly from multiple sources. Pt extremely unkempt with malodorous wounds, and yeast looking creases. Bed bath given. WOC consult for multiple unstageable wounds as well as MASD. Pt completely contracted in all 4
extremities. Pt nonverbal, PERRLA 3. No purposeful movement noted. Afebrile, rectal probe for consistent monitoring 2/[address] on monitor. Neck stoma with crusted secretions. Area cleansed with NSS/gauze. Copious secretions. RT at bedside to
deep suction. Mucomyst given INH as ordered. Sat 100% on 28% TC. Chronic GJ tube, site care given. [place] catheter. Skin as documented. Will monitor.
[2025-04-28 04:31] LABS: APTT 25.7 Sec (23.4-35.0); INR 1.27; PT 16.2 Sec (11.4-14.6)
[2025-04-28 04:39] LABS: ALT (SGPT) 12 U/L (0-50); AST (SGOT) 19 U/L (17-59); Albumin 2.8 g/dl (3.5-5.0); Alkaline Phosphatase 68 U/L (38-126); Blood Urea Nitrogen 28 mg/dl (9-20); Calcium 9.3 mg/dl (8.4-10.2); Carbon Dioxide 27 mmol/L (22-30); Chloride 105 mmol/L (98-107); Estimated Creatinine Clearance 61 ml/min; Glucose 72 mg/dl (70-99); Magnesium 2.3 mg/dl (1.6-2.3); Potassium 3.9 mmol/L (3.5-5.1); Sodium 137 mmol/L (135-145); Total Protein 6.1 g/dl (6.3-8.2); eGFR > 60.00
[2025-04-28] MEDS: SYNTHROID 50 MCG TUBE (05:25)
[2025-04-28] MEDS: TYLENOL/FEVERALL 650 MG RECTAL (05:34)
[2025-04-28] MEDS: VALIUM INJECTION 2 MG IV (05:34)
[2025-04-28 05:38] LABS: Hematocrit 34.3 % (39.0-52.0); Hemoglobin 10.9 g/dL (13.0-18.0); Mean Corp Hgb Conc. 31.8 g/dL (33.0-37.0); Mean Corpuscular Volume 105.9 fL (80.0-94.0); Nucleated Red Blood Cells % 0 % (-); Platelet Count 142 10^3/uL (130-400); Red Cell Dist. Width 13.9 % (11.5-14.5)
--- NOTE | 2025-04-28 06:38 | VATNOTE ---
ASSESSED IV THERAPY SITUATION WHEN CALLED TO DRAW ORDERED AM LABS. PT WITH EXTREMELY LIMITED PERIPHERAL ACCESS OPTIONS DUE TO CHRONICITY OF MULTIPLE MEDICAL CONDITIONS AND SEVERE CONTRACTURES OF ALL EXTREMITIES. VAT HAS NO ADDITIONAL ACCESS OPTIONS
FOR THIS PATIENT AND I SUGGESTED TO PCN THAT THEY REQUEST AN IJ TLC FROM THE PROVIDER TODAY FOR RELIABLE IV ACCESS AND ABILITY TO OBTAIN ORDERED LABS.VAT TO FOLLOW.
[2025-04-28] MEDS: VENTOLIN NEBULES 2.5 MG INH ×2 (07:46→20:28)
[2025-04-28] MEDS: MUCOMYST 20% 2 ML INH ×2 (07:46→20:24)
--- NOTE | 2025-04-28 07:48 | CON.NEURO ---
Consultation
Order
Date of Consultation: 04/28/25
Requesting Provider: Riya Summers CRNP
Reason for Consult: Seizures exacerbated by septic shock
Neurology Consultation Note.
HPI: This is a 59-year-old man who presented to [facility] on 04/27/2025 with recurrent seizures.
Keppra dose was increased to 1 g twice a day and valproic acid was continued at 875 mg 3 times daily. VPA level�68.2.
Home AED: Valproic acid 875 mg TID, Keppra 750 mg BID
ER VS: 97/62-77/55, 71�114, 38.6 C
EKG: Sinus tachycardia, QTcB Int : 471 ms
PDMP: Lorazepam 0.5 mg 6 tablets filled in on 04/26/2025, 14 tablets filled in on 02/15/2025.
Labs: WBCs 12.7�17.1, normal glucose, sodium�134, normal creatinine, lactic acid, CK, bilirubin, free T4,
PMH: Bihemispheric strokes with hemorrhagic transformation (2021) COVID pneumonitis complicated by cardiac arrest, anoxic brain injury, PE, Atrial fibrillation, DLP, hypothyroidism, eosinophilic esophagitis, anemia, sacral decubitus
PSH: Appendectomy, wisdom teeth extraction, tonsillectomy, PEG
SH: ,
FH: Not contributory to current presentation
All: Phenobarbital, propofol, levofloxacin
ROS: Unable
General: Well developed. In no acute distress.
Cardio: Regular rate and rhythm without murmur. Extremities are without cyanosis or edema.
Neuro:
Mental Status: Awake, does not attend or follow requests. No verbal output
Cranial Nerves: Pupils are equally round and reactive to light. Orthophoric primary gaze. Blinks to threat bilaterally. No facial weakness
Motor: Spastic quadriplegia
Reflexes: Unable to check assess due to contractures
Coordination: No tremors myoclonic movements.
Gait: deferred
Assessment and Plan:
I. Symptomatic epilepsy with likely increased seizure frequency due to septic shock
II. Multifactorial encephalopathy (vascular, hypoxic)
III. Septic shock.
- Seizure precautions
- Avoid cerebral hypoperfusion
- Avoid medications known to lower seizure threshold
- Please follow-up CT head without contrast
- Continue Keppra 1 g BID IV and Valproic acid 875 mg TID PT
- Routine EEG
- Will contact patient's family to obtain cognitive baseline.
-DVT prophylaxis
I personally reviewed all radiology and labs along with past medical records pertinent to current medical problems. Total time spent in patient care is 60 minutes.
Thank you for allowing us to participate in the care of this patient. We will continue to follow. Please do not hesitate to contact us with any questions or concerns.
Subjective/Objective
Subjective Data
Date of Service: April 28, 2025
Objective Data
Vital Signs
Temp Pulse Resp BP Pulse Ox
37.6 C 119 16 104/65 97
04/28/25 07:27 04/28/25 06:30 04/28/25 06:30 04/28/25 06:00 04/28/25 06:35
Lab Results
04/28/25 03:58
04/28/25 03:58
PT 16.2 Sec (11.4-14.6) H 04/28/25 03:58
INR 1.27 04/28/25 03:58
APTT 25.7 Sec (23.4-35.0) 04/28/25 03:58
Sodium 137 mmol/L (135-145) 04/28/25 03:58
Potassium 3.9 mmol/L (3.5-5.1) 04/28/25 03:58
BUN 28 mg/dl (9-20) H 04/28/25 03:58
Glucose 72 mg/dl (70-99) 04/28/25 03:58
Calcium 9.3 mg/dl (8.4-10.2) 04/28/25 03:58
Patient Allergies
levofloxacin Allergy (Verified 04/27/25 17:42)
seizure
phenobarbital Allergy (Verified 04/27/25 16:08)
Unknown
propofol Allergy (Verified 04/27/25 17:42)
per [facility] paperwork
Medications
-
Active Medications
Generic Name Dose Route Start Last Admin
Trade Name Freq PRN Reason Stop Dose Admin
Acetaminophen 650 mg 04/27/25 22:16 04/28/25 05:34
Acetaminophen 650 Mg Rectal Suppository RECTAL 05/25/25 22:15 650 mg
Q4HPRN PRN Administration
mild pain/MORENO/temp> 100.4F
Acetylcysteine 2 ml 04/27/25 22:16 04/28/25 07:46
Acetylcysteine 20% 4 Ml Vial INH 2 ml
R BID LAURA Administration
Protocol
Albuterol Sulfate 2.5 mg 04/27/25 22:16 04/28/25 07:46
Albuterol Nebs 2.5 Mg/3 Ml Ampul INH 2.5 mg
R [id number] PRN Administration
sob
Protocol
Atorvastatin Calcium 40 mg 04/27/25 22:16 04/27/25 23:37
Atorvastatin (Lipitor) 40 Mg Tablet TUBE 05/25/25 22:15 40 mg
HS LAURA Administration
Diazepam 2 mg 04/27/25 20:01 04/28/25 05:34
Diazepam 10 Mg/2 Ml Inj IV 05/25/25 20:00 2 mg
Q4HPRN PRN Administration
focal facial seizure
Enoxaparin Sodium 40 mg 04/28/25 18:00
Enoxaparin Sodium 40 Mg/0.4 Ml Syringe SC 05/26/25 17:59
QPM LAURA
Ferrous Sulfate 300 mg 04/27/25 22:16 04/27/25 23:38
Ferrous Sulfate Liquid (300 Mg/5 Ml) Cup TUBE 05/25/25 22:15 300 mg
BID LAURA Administration
Guaifenesin 600 mg 04/28/25 08:00
Guaifenesin Oral Solution (200 Mg/10 Ml) Cup TUBE 05/26/25 07:59
Q12H LAURA
Norepinephrine Bitartrate 4 mg in 250 mls @ 0 mls/hr 04/27/25 18:30
Levophed IV
PER PROTOCOL LAURA
Protocol
Per Protocol
Sodium Chloride 1,000 mls @ 100 mls/hr 04/27/25 19:00 04/27/25 23:10
Nss IV 1,000 mls
.Q10H LAURA Administration
Valproate Sodium 875 mg/ 58.75 mls @ 57.5 mls/hr 04/28/25 08:00
Sodium Chloride IV 05/26/25 07:59
Q8H LAURA
Sodium Chloride 1,000 mls @ 100 mls/hr 04/27/25 22:16 04/27/25 23:38
Nss IV 1,000 mls
.Q10H LAURA Administration
Levetiracetam 1,000 mg 04/28/25 08:00
Levetiracetam (100 Mg/Ml) 500 Mg/5 Ml Vial IV 05/26/25 07:59
Q12 LAURA
Levothyroxine Sodium 50 mcg 04/28/25 06:00 04/28/25 05:25
Levothyroxine 50 Mcg Tablet TUBE 05/26/25 05:59 50 mcg
DAILY @ 0600 LAURA Administration
Lorazepam 0.5 mg 04/27/25 22:16
Lorazepam 0.5 Mg Tablet TUBE 05/25/25 22:15
PRN PRN
seizure
Sodium Chloride 0 flush 04/27/25 23:00
Sodium Chloride 0.9% (Flush) Syringe IV 05/25/25 22:59
PER PROTOCOL LAURA
Home Medications
�Medication �Instructions �Recorded
acetaminophen 325 mg tablet 650 mg feeding tube Q4HPRN PRN 12/30/21
mild pain, temp>100.4
albuterol sulfate 2.5 mg/3 mL 2.5 mg inhalation R [id number] PRN sob 12/30/21
(0.083 %) solution for nebulization
atorvastatin 40 mg tablet 40 mg feeding tube HS High 12/30/21
cholesterol
ascorbic acid (vitamin C) 500 mg 500 mg feeding tube DAILY 06/12/24
tablet (Vitamin C) Supplement
ferrous sulfate 300 mg (60 mg 300 mg feeding tube BID Supplement 06/12/24
iron)/5 mL oral liquid
levetiracetam 100 mg/mL oral 750 mg feeding tube BID 06/12/24
solution (Keppra) Neurological Condition
collagenase clostridium histo. 250 1 applic topical DAILY Infection 07/06/24
unit/gram topical ointment (Santyl)
metoprolol tartrate 25 mg tablet 25 mg feeding tube Q12 Blood 07/10/24
pressure 30 days #60 tabs
sodium hypochlorite 0.125 % 1 applic topical DAILY #473 mL 08/03/24
solution (Dakin's Solution)
miconazole nitrate 2 % topical 1 applic topical DAILYPRN PRN 08/18/24
powder (Miconazorb AF) soilage/drainage
levothyroxine 50 mcg tablet 50 mcg feeding tube DAILY@07 04/27/25
lorazepam 0.5 mg tablet 0.5 mg feeding tube PRN PRN seizure 04/27/25
valproic acid (as sodium salt) 250 875 mg feeding tube TID 04/27/25
mg/5 mL oral solution
Vital Signs and Labs
-
Vital Signs and Labs:
Vital Signs
Temp Pulse Resp BP Pulse Ox
37.6 C 119 16 104/65 97
04/28/25 07:27 04/28/25 06:30 04/28/25 06:30 04/28/25 06:00 04/28/25 06:35
Lab Results
04/28/25 03:58
04/28/25 03:58
PT 16.2 Sec (11.4-14.6) H 04/28/25 03:58
INR 1.27 04/28/25 03:58
APTT 25.7 Sec (23.4-35.0) 04/28/25 03:58
Sodium 137 mmol/L (135-145) 04/28/25 03:58
Potassium 3.9 mmol/L (3.5-5.1) 04/28/25 03:58
BUN 28 mg/dl (9-20) H 04/28/25 03:58
Glucose 72 mg/dl (70-99) 04/28/25 03:58
Calcium 9.3 mg/dl (8.4-10.2) 04/28/25 03:58
Medications
-
Medications:
Generic Name Dose Route Start Last Admin
Trade Name Freq PRN Reason Stop Dose Admin
Acetaminophen 650 mg 04/27/25 22:16 04/28/25 05:34
Acetaminophen 650 Mg Rectal Suppository RECTAL 05/25/25 22:15 650 mg
Q4HPRN PRN Administration
mild pain/MORENO/temp> 100.4F
Acetylcysteine 2 ml 04/27/25 22:16 04/28/25 07:46
Acetylcysteine 20% 4 Ml Vial INH 2 ml
R BID LAURA Administration
Protocol
Albuterol Sulfate 2.5 mg 04/27/25 22:16 04/28/25 07:46
Albuterol Nebs 2.5 Mg/3 Ml Ampul INH 2.5 mg
R [id number] PRN Administration
sob
Protocol
Atorvastatin Calcium 40 mg 04/27/25 22:16 04/27/25 23:37
Atorvastatin (Lipitor) 40 Mg Tablet TUBE 05/25/25 22:15 40 mg
HS LAURA Administration
Diazepam 2 mg 04/27/25 20:01 04/28/25 05:34
Diazepam 10 Mg/2 Ml Inj IV 05/25/25 20:00 2 mg
Q4HPRN PRN Administration
focal facial seizure
Enoxaparin Sodium 40 mg 04/28/25 18:00
Enoxaparin Sodium 40 Mg/0.4 Ml Syringe SC 05/26/25 17:59
QPM LAURA
Ferrous Sulfate 300 mg 04/27/25 22:16 04/27/25 23:38
Ferrous Sulfate Liquid (300 Mg/5 Ml) Cup TUBE 05/25/25 22:15 300 mg
BID LAURA Administration
Guaifenesin 600 mg 04/28/25 08:00
Guaifenesin Oral Solution (200 Mg/10 Ml) Cup TUBE 05/26/25 07:59
Q12H LAURA
Norepinephrine Bitartrate 4 mg in 250 mls @ 0 mls/hr 04/27/25 18:30
Levophed IV
PER PROTOCOL LAURA
Protocol
Per Protocol
Sodium Chloride 1,000 mls @ 100 mls/hr 04/27/25 19:00 04/27/25 23:10
Nss IV 1,000 mls
.Q10H LAURA Administration
Valproate Sodium 875 mg/ 58.75 mls @ 57.5 mls/hr 04/28/25 08:00
Sodium Chloride IV 05/26/25 07:59
Q8H LAURA
Sodium Chloride 1,000 mls @ 100 mls/hr 04/27/25 22:16 04/27/25 23:38
Nss IV 1,000 mls
.Q10H LAURA Administration
Levetiracetam 1,000 mg 04/28/25 08:00
Levetiracetam (100 Mg/Ml) 500 Mg/5 Ml Vial IV 05/26/25 07:59
Q12 LAURA
Levothyroxine Sodium 50 mcg 04/28/25 06:00 04/28/25 05:25
Levothyroxine 50 Mcg Tablet TUBE 05/26/25 05:59 50 mcg
DAILY @ 0600 [facility] Administration
Lorazepam 0.5 mg 04/27/25 22:16
Lorazepam 0.5 Mg Tablet TUBE 05/25/25 22:15
PRN PRN
seizure
Sodium Chloride 0 flush 04/27/25 23:00
Sodium Chloride 0.9% (Flush) Syringe IV 05/25/25 22:59
PER PROTOCOL LAUAR
Home Medications
-
Home Medications
acetaminophen 325 mg tablet 650 mg feeding tube Q4HPRN PRN mild pain, temp>100.4 12/30/21
albuterol sulfate 2.5 mg/3 mL (0.083 %) solution for nebulization 2.5 mg inhalation R [id number] PRN sob 12/30/21
atorvastatin 40 mg tablet 40 mg feeding tube HS High cholesterol 12/30/21
ascorbic acid (vitamin C) 500 mg tablet (Vitamin C) 500 mg feeding tube DAILY Supplement 06/12/24
ferrous sulfate 300 mg (60 mg iron)/5 mL oral liquid 300 mg feeding tube BID Supplement 06/12/24
levetiracetam 100 mg/mL oral solution (Keppra) 750 mg feeding tube BID Neurological Condition 06/12/24
collagenase clostridium histo. 250 unit/gram topical ointment (Santyl) 1 applic topical DAILY Infection 07/06/24
metoprolol tartrate 25 mg tablet 25 mg feeding tube Q12 Blood pressure 30 days #60 tabs 07/10/24
sodium hypochlorite 0.125 % solution (Dakin's Solution) 1 applic topical DAILY #473 mL 08/03/24
miconazole nitrate 2 % topical powder (Miconazorb AF) 1 applic topical DAILYPRN PRN soilage/drainage 08/18/24
levothyroxine 50 mcg tablet 50 mcg feeding tube DAILY@07 04/27/25
lorazepam 0.5 mg tablet 0.5 mg feeding tube PRN PRN seizure 04/27/25
valproic acid (as sodium salt) 250 mg/5 mL oral solution 875 mg feeding tube TID 04/27/25
--- NOTE | 2025-04-28 07:54 | W.PN.HOSP.TC ---
Addendum entered and electronically signed by Armando Arroyo MD 04/28/25 21:15:
Attending Addendum-
I saw and evaluated the patient. I reviewed the resident�s note and agree with findings and plan as documented in the resident�s note. Sub: Patient nonverbal. Appears comfortable. Unable to nod yes/no to questions. Full 12 point ROS unable to
obtain. Exam: Vitals reviewed in chart GEN-NAD HEENT TC in place copious secretions heart RRR no MRG Lungs crackles at bases abd GJ tube in place, soft NT ND pos BS LE trace B/L LE edema Neuro unable to follow commands, contracted body, quad
Plan:
#Severe Sepsis likely sacral decub stage 4/stage I bilateral buttocks lower back decub
#History of decubitus ulcers with sepsis right iliac-MSSA, Pseudomonas, Streptococcus pyogenes, Proteus Mirabilis, Enterococcus faecalis, Gayle auris sacral August 2024,
#Chronic bedbound status with contractures/quadriplegia
- Wound culture-P
- per wound care- wounds are healing stage 4
- cont IVF
- has not required pressors
- place central line for access
- restart vancomycin and Zosyn
- Tylenol via G-tube
- Wound care
- CT abd pelvis 04/27-Minimal pulmonary fibrosis. Mild bronchiectasis. Moderate emphysematous disease. Findings suggestive of fecal impaction, Two 6 mm gallstones.
-Mild diffuse bladder wall thickening. This can be seen with cystitis and bladder outlet obstruction
- urine cx- NGTD
- Blood cx pos 1/2 bottles - [facility]-cont vanco
- WBC increasing
- transfer to IMU
#Acute exacerbation of seizures in setting of sepsis
#Seizures post anoxic brain injury/Chronic Tremors to RIGHT ARM
- has reported multiple seizures X5 days Facial twitching eye brows move up increased right side / eye gaze numerous per day
- follows with Dr Melissa conrad neuro [place]
- Continue IV Depakote 875mg tid - home dose-Depakote level within normal limits
- cont increased Increase Keppra from 750 mg twice daily to 1000 mg twice daily
- appreciate neuro input
- check EEG and head CT
# Chronic hypoxemic respiratory failure
- trach collar with 5 L oxygen
- sputum culture-P
- cont guaifenesin
- Mucomyst nebulizer
#Oral thrush
-Iv diflucan x 1
#Dysphagia/History of GJ tube replaced 07/31/2024, 03/16/2025
-NPO
-cont Jevity 60 cc
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
-CT head August 2021 showed that he has multiple large areas of cerebral infarction bilaterally with areas of hemorrhagic
transformation with diffuse cerebral edema, mild left to right midline shift.
-repeat CT head
#PE 2023 s/p thrombectomy
#Hypothyroidism
- TSH elevated
- increase levothyroxine to 75 po daily
#Paroxysmal A-fib August 2021
-Hold metoprolol due to hypotension
-not on AC due hem CVA
#Anemia of chronic disease
#Iron deficiency anemia
DVT prophylaxis
Subcu Lovenox
CC Note
Due to a high probability of clinically significant, life-threatening deterioration, the patient required a high level of preparedness to intervene emergently. I personally spent this critical care time directly and personally managing the patient.
This critical care time included obtaining a history; examining the patient; ordering and review of studies and STAT labs; arranging urgent treatment with development of a management plan; evaluation of patient's response to treatment; reassessment;
and, discussions with other providers.
This critical care time was performed to assess and manage the high probability of imminent, life-threatening deterioration that could result in multi-organ failure. It was exclusive of separately billable procedures and treating other patients and
teaching time.
Total critical care time: Approximately 33 minutes
Original Note:
Today's Communication/Plan
-
CT head today
EEG today
Continue IV fluid support
Continue antibiotics
Follow cultures
Assessment / Plan
Assessment / Plan
Assessment
Plan
Sepsis
Unstageable Sacral Decubitus Ulcer
Stage I Bilateral Buttocks and Lower Back Decubitus Ulcer
-On admission patient was hypotensive at 89/56, febrile at 101.4, HR 105.
-S/p 5L of NSS in the ED, and continued on IV NS at 100cc/hr. He is no longer hypotensive, but unable to definitively call this shock
-Source of infection is most likely secondary to Decubitus ulcers, but could be urinary
-He has a history of ulcers positive for MSSA, Pseudomonas, Strep. Progenies, Proteus Mirabilis, Enterococcus faecalis in 2023, and Gayle auris in 2024
-Continue on IV Vancomycin and IV Zosyn.
-Continue wound care for his sacral wounds
-Continue to follow cultures
-Will monitor
Acute Exacerbation of Seizures
Seizures s/p Anoxic Brain Injury
-S/p anoxic brain injury/hemorrhagic CVA and cardiac arrest in 08/2021 at [facility]
-CT Head 08/2021 showed multiple large areas of cerebral infarction bilaterally with areas of hemorrhagic transformation with diffuse cerebral edema, mild left to right midline shift.
-Increased number of seizures despite compliance with medications over the last 5 days likely secondary to sepsis. Was given Ativan 0.5mg at 8PM on 04/26 prior to reporting to the ED. A single dose of acyclovir 20mg/kg was also given
-Outpatient, patient follows with Neurology at [facility] with Dr. Melissa Frost
-Continue IV Depakote 875mg TID.
-Continue IV Keppra 1000mg BID
-Continue IV Valium until focal seizures stop
-Plan for EEG today
-Plan for CT Head today
-Will monitor
History of Current Trach Collar with 5L Oxygen
-Copious trash secretions noted on arrival
-Pending sputum culture
-Continue guaifenesin 600mg BID
-Continue mucomyst nebulizer
Oral Thrush
-Noted upon arrival
-S/p one time dose of Diflucan 100mg
Anemia of Chronic Disease
Iron Deficiency Anemia
-Continue to monitor H&H
Paroxysmal Atrial Fibrillation
-HOLD metoprolol due to hypotension
Hypothyroidism
-TSH high at 41
-Increase levothyroxine 50mcg daily to 75 mcg daily
-Will need repeat testing in 2-4 weeks for medication adjustment
History of Shock Liver/Multisystem Organ Dysfunction/Renal Failure in the setting of COVID19 infection 08/2021
History of PE in 2023 (Per )
Anticipated Discharge: > 48 hours
Subjective/Interval History
-
Date of Service: April 28, 2025
Patient was sleeping in his bed when I arrived. He did not awaken to the sound of my voice or my touch. His was not present in the room at the time.
Objective Data
-
Labs:
Laboratory Results
04/28/25
03:58
WBC 17.1 H
Hgb 10.9 L
Hct 34.3 L
Plt Count 142
PT 16.2 H
INR 1.27
APTT 25.7
Sodium 137
Potassium 3.9
Chloride 105
Carbon Dioxide 27
BUN 28 H
Creatinine 1.1
Glucose 72
Calcium 9.3
Total Bilirubin 0.9
AST 19
ALT 12
Alkaline Phosphatase 68
Vital Signs:
Vital Signs
Temp Pulse Resp BP Pulse Ox
99.7 F 119 16 104/65 97
04/28/25 07:27 04/28/25 06:30 04/28/25 06:30 04/28/25 06:00 04/28/25 06:35
I&O
04/27/25 04/28/25 04/29/25
06:59 06:59 06:59
Intake Total 900 / 900
Balance 900 / 900
Review of Systems
-
Unable to obtain full review of systems at this time due to: Acuity and Patient Non-verbal
History Source: Patient
Physical Exam
-
General: Well Nourished and Appears Chronically Ill
HEENT: Normocephalic and Other (There is some frequent muscle twitching over the left eyebrow/eyelid that will cause the eye to briefly open. No other tremors noted.)
Respiratory: Other (Trach cuff on 5L)
Cardiac: Regular Rhythm and S1/S2
Musculoskeletal: Other (Contracture of the extremities)
Skin: Warm and Dry
Neuro: Negative Awake
Psych: Calm
[2025-04-28] MEDS: NSS 1000 IV ×3 (09:05→17:17)
[2025-04-28] MEDS: DEPACON 58.75 MG IV ×2 (09:06→17:18)
[2025-04-28] MEDS: FERROUS SULFATE ORAL LIQUID 300 MG TUBE ×2 (09:08→20:52)
[2025-04-28] MEDS: ROBITUSSIN 600 MG TUBE ×2 (09:09→20:52)
[2025-04-28] MEDS: KEPPRA 1000 MG IV ×2 (09:09→20:51)
--- NOTE | 2025-04-28 09:20 | PTCARENOTE ---
Rec'd pt resting in bed with eyes closed. Did open them with verbal stimuli but no focus or tracking. Follows no commands. KEYLA at 3mm. Pts arms and legs (mostly legs are severely contracted). Gel repositioning pads placed to help with breakdown. Pt
with no movement of extremities on own noted. Does have intermitttent eye brow twitching- but not constant or rhythmic. Skin is pale and warm- temp via rectal probe 99.5 Pt with multiple wounds as documented with silicone border foam dressings over-
Wound Care due to see pt today. Pts R lema is reddened. Pt with missing toes on both R and L foot. Several areas with MASD. Respirs are shallow and sl tachypnic but non-labored. Rec'd pt on 28% TC. Pt with stoma present. Coughing a moist sometimes
prod cough for thick whitish secretions. Did require suctioning x2. Sputum C+ S sent. BS throughout are coarse. Monitor ST. VS as documented. + pulses. DP pulses with the doppler. Tr pedal edema. Abd is soft with + Sl hypoactive BS. L abd G/J tube
clamped-able to irrigate and meds given via G tube portion. Condom cath in place and pt voiding clear yellow urine. Pt with NSS infusing via R upper arm IV site- upper arm appears larger on the R than the L. Difficult to tell if starting to
infiltrate. Will cap for now and IV fluids changed over to L hand IV site. Pt turned and repostioned. Skin and mouth care given. Pts called in and updated on plan of care. Pt also updated on plan of care. Currently EEG here ready to do EEG.
--- NOTE | 2025-04-28 10:00 | PTCARENOTE ---
EEG completed. No changes in assessment
--- NOTE | 2025-04-28 12:07 | CON.INTV ---
Consultation
Consultation Request
Date/Time Consultation Requested: 04/27/2025 22:51
Date/Time Consultation Performed: 04/28/2025 08:30
Requesting Provider: Esther Gold
Performing Provider: Domingo Colon DO (Resident); Anastacio Guallpa MD
Reason for Consultation: ICU Management
Medical History
-
Chief Complaint: Breakthrough Seizures, Fevers
History of Present Illness:
Mr. Levi is a chronically bedbound 59M w/ a PMHx of COVID pneumonitis in 2021, anoxic brain injury s/p hemorrhagic CVA and cardiac arrest in 2021, with subsequent chronic contractures, quadriplegia, and seizure d/o. He also has a PMHx of anemia
chronic disease, iron deficiency anemia, and GERD. He has a recent history of decubitus ulcers complicated by sepsis 2/2 multiple organisms including MSSA, pseudomonas, strep pyogenes, proteus, E. faecalis, and savi in of 2024, as well as
ESBL in the urine.
History is obtained from the patient's over the phone, since patient is nonverbal. He presented to the ED last night due to breakthrough seizures and fevers. Patient's states that approximately 5-6 days, patient started to have seizures
despite not having had them for 'some time' while on Keppra and Depakote. The seizures are characterized as flexing of the neck, and facial twitching, particularly of the eyebrows and forehead. Around the same time, the and home health lvn noticed
low grade fevers, never higher than 101F. The notes that the seizures preceded the fevers. The patient was started on tube administration of Ativan by his PCP without improvement.
ED COURSE
On arrival, temp was 101, and patient was hypotensive to 80s/60s and tachycardic.
Exam showed skin breakdown in the lumbar and sacral regions.
Urine output from condom cath was cloudy.
Labs showed a leukocytosis with neutrophilic predominance, unremarkable CMP, TSH of 41.8 with Free T4 0.79.
UA was bland but showed many bacteria.
Valproic acid level was within therapeutic range.
CXR: showed no acute disease
CT Chest/Abd/Pelv: mild bronchiectasis, fecal impaction, mild bladder wall thickening possibly due to cystitis or outlet obstruction
Past Medical History
Past Medical History: Other (COVID pneumonitis in 2021, anoxic brain injury s/p hemorrhagic CVA and cardiac arrest in 2021, with subsequent chronic contractures, quadriplegia, and seizure d/o. He also has a PMHx of anemia chronic disease, iron
deficiency anemia, and GERD. He has a recent history of decubitus ulcers complicated )
Social History
Tobacco: Non-smoker
Alcohol: None
Drug: None
Personal:
Living: With Family
Family History
Family History: Unable to Obtain
Allergies / Home Medications
Allergies
Allergy/AdvReac Type Severity Reaction Status Date / Time
levofloxacin Allergy seizure Verified 04/27/25 17:42
phenobarbital Allergy Unknown Verified 04/27/25 16:08
propofol Allergy per Grand Verified 04/27/25 17:42
View
Health
paperwork
Home Medications
�Medication �Instructions �Recorded �Confirmed �Last Taken �Type
acetaminophen 325 mg tablet 650 mg feeding tube Q4HPRN PRN 12/30/21 04/27/25 Unknown History
mild pain, temp>100.4
albuterol sulfate 2.5 mg/3 mL 2.5 mg inhalation R [id number] PRN sob 12/30/21 04/27/25 Unknown History
(0.083 %) solution for nebulization
atorvastatin 40 mg tablet 40 mg feeding tube HS High 12/30/21 04/27/25 06/11/24 History
cholesterol
ascorbic acid (vitamin C) 500 mg 500 mg feeding tube DAILY 06/12/24 04/27/25 07/06/24 History
tablet (Vitamin C) Supplement
ferrous sulfate 300 mg (60 mg 300 mg feeding tube BID Supplement 06/12/24 04/27/25 07/06/24 History
iron)/5 mL oral liquid
levetiracetam 100 mg/mL oral 750 mg feeding tube BID 06/12/24 04/27/25 04/27/25 09:00 History
solution (Keppra) Neurological Condition
collagenase clostridium histo. 250 1 applic topical DAILY Infection 07/06/24 04/27/25 Unknown History
unit/gram topical ointment (Santyl)
metoprolol tartrate 25 mg tablet 25 mg feeding tube Q12 Blood 07/10/24 04/27/25 04/27/25 09:00 Rx
pressure 30 days #60 tabs
sodium hypochlorite 0.125 % 1 applic topical DAILY #473 mL 08/03/24 04/27/25 Unknown Rx
solution (Dakin's Solution)
miconazole nitrate 2 % topical 1 applic topical DAILYPRN PRN 08/18/24 04/27/25 Unknown History
powder (Miconazorb AF) soilage/drainage
levothyroxine 50 mcg tablet 50 mcg feeding tube DAILY@07 04/27/25 04/27/25 04/27/25 07:00 History
lorazepam 0.5 mg tablet 0.5 mg feeding tube PRN PRN seizure 04/27/25 04/27/25 04/26/25 22:00 History
valproic acid (as sodium salt) 250 875 mg feeding tube TID 04/27/25 04/27/25 04/27/25 09:00 History
mg/5 mL oral solution
Review of Systems
-
Unable to Obtain full review of systems at this time due to: Patient Non Verbal
Vitals / Labs / Diagnostic Testing
Vital Signs
Temp Pulse Resp BP Pulse Ox
99.5 F 105 28 108/77 97
04/28/25 11:05 04/28/25 10:30 04/28/25 09:30 04/28/25 10:00 04/28/25 10:30
Lab Data
04/28/25 03:58
04/28/25 03:58
Laboratory Results
04/28/25
03:58
PT 16.2 H
INR 1.27
APTT 25.7
Microbiology
04/27/25 20:01 Buttock Gram Stain - Preliminary
04/27/25 16:53 Nasal Swab Influenza Types A & B (MAYELA) - Final
Negative for Influenza A & B, NAAT
Negative results must be combined with clinical observations
and patient history.
Nucleic Acid Amplification test (NAAT)performed on the
[employer] ([employer] platform.
Diagnostic Testing:
CXR (04/27/25): No acute disease. Tiny right pleural effusion versus pleural thickening. Stable.
Mild right upper lobe scarring. Stable.
CT Chest/Abd/pelv (04/27/25):
No acute disease of the chest.
Minimal pulmonary fibrosis. New., Mild bronchiectasis. New. Moderate emphysematous disease. Stable
Findings suggestive of fecal impaction. Progressed
Two 6 mm gallstones. Stable
Mild diffuse bladder wall thickening. This can be seen with cystitis and bladder outlet obstruction. New.
Physical Exam
-
HEENT: Other (Trach-collar in place; seems to track with eyes occasionally; facial twitching of right eye upper eyelid/forehead; gag reflex intact (witnessed while suctioning))
Cardiovascular: S1/S2 and Other (tachycardic)
Respiratory: Non-Labored Respirations and Other (coarse breath sounds diffusely)
GI: Soft
Neurology: Awake and Other (severely contracted in all 4 extremities)
Skin: Warm
General: Other (No acute distress)
Assessment
-
Ruben Levi is a 59M with a PMHx of seizure disorder, decubitus ulcers and colonization with multiple drug resistant organisms who presented to the ED yesterday with 5 days worth of fevers and seizures. Was septic on arrival with multiple
possible sources of infection including possible aspiration in the setting of recurrent seizures, stercoral colitis secondary to fecal impaction, UTI, or translocated infection from sacral/lumbar decubitus ulcers.
Neuro
Continue home sz meds: Virginia Mcintyrete
Continue Ativan PRN for breakthrough sz
Continue to monitor for focal sz activity
Neurology consult with EEG
Would consider CT of the head
Continue to monitor for fevers given possibilty of febrile seizures
Cardiovascular
Has not required pressors
His need for ICU level of care more likely tied to nursing need
Respiratory
On trach-collar on 5L o2
No increased oxygenation needs
Albuterol PRN q8h
Mucomyst [id number]/Guaifenesin q12h
Follow up secretion cultures
GI
GJ tube in place/NPO
Clear straw colored urine through condom cath
Follow up urine cultures
ID
Received one dose of vancomycin, one dose of zosyn, one dose of Diflucan and 1 dose of acyclovir in ED
Continue to follow urine, sputum, wound, and blood cultures
Normotension acheived through fluid bolus only; 5L so far
Slow down rate, monitor BPs
Should be on continued prophylactic abx; restart Zosyn/Vanco
MRSA negative, but would continue Vanco for now given potential source being decubitus ulcers
Heme
DVT prophlaxis with SC Lovenox 40 mg
Endo
Subclinical Hypothyroidism
Continue Levothyroxine 50mcg and consider dose increase prior to d/c
Data Reviewed
-
EKG: Tracing personally visualized and interpreted and Report reviewed by me
Radiology: Image personally visualized and interpreted and Report reviewed by me
CT Scan: Image personally visualized and interpreted and Report reviewed by me
Labs: Labs reviewed by me
Total Time Spent with Patient (in minutes): 32
--- NOTE | 2025-04-28 12:30 | PTCARENOTE ---
Assessment is unchanged. Coughing up thick whitish secretions via trach stoma- on a somewhat frequent basis. Repositioned then taken to CT scan for CT of the head.
--- NOTE | 2025-04-28 13:00 | PHA.VAN.IN ---
Assessment
- Assessment
Renal Function: Appears similar to baseline (Range 0.9-1.3)
Maximum Temperature: 101.4F
Minimum Temperature: 99.2F
Concomitant Antimicrobials: Zosyn
AUC Dosing Plan
- Empiric Dosing
Initial / Loading Dose: 1500MG
Maintenance Regimen: 1250MG Q24H
Estimated AUC (mcg*h/mL): 485
Estimated Peak (mcg*h/mL): 34.9
Estimated Trough (mcg/ml): 10.1
Estimated Half Life (H): 12.6
- Monitoring
No levels ordered at this time: Awaiting steady state
Pharmacokinetics Vancomycin I
- -
Patient Age: 59
Patient Sex: Male
Vancomycin Day #: 1
Indication: Other
Requesting Provider: Kobe
Pertinent Antimicrobial Allergies:
Levaquin - seizures
Height / Weight:
Height 5 ft 5 in
Actual Weight 69.7 kg
Pertinent Past Medical History: Decubitus ulcers (polymicrobial growth including resistant organisms)
- Vital Signs / Lab Results
Temp Pulse Resp BP Pulse Ox
99.5 F 105 28 108/77 97
04/28/25 11:05 04/28/25 10:30 04/28/25 09:30 04/28/25 10:00 04/28/25 10:30
Lab Results - Hematology
04/27/25 04/28/25
16:18 03:58
WBC 12.7 H 17.1 H
Lab Results - Chemistry
04/27/25 04/28/25
16:18 03:58
BUN 32 H 28 H
Creatinine 1.2 1.1
Estimated Creat Clear 61
Albumin 3.2 L 2.8 L
04/27/25 04/27/25 04/27/25
16:18 16:18 20:15
Lactic Acid 1.3 Cancelled Cancelled
Lab Results - Urine
04/27/25
18:11
Urine Nitrite (Reflex) Negative
Leukocyte Esterase Rfl Negative
Urine WBC (Reflex) 3-5
Ur Squamous Epith Cells 0-2
Urine Bacteria (Reflex) Many A
Microbiology Results
04/27/25 20:01 Gram Stain - Preliminary
Buttock
04/27/25 16:53 Influenza Types A & B (MAYELA) - Final
Nasal Swab Negative for Influenza A & B, NAAT
Negative results must be combined with clinical observations
and patient history.
Nucleic Acid Amplification test (NAAT)performed on the
[employer] platform.
--- NOTE | 2025-04-28 13:53 | WOUNDNOTE ---
LEFT 3RD TOE
--- NOTE | 2025-04-28 13:53 | WOUNDNOTE ---
LEFT LATERAL ANKLE
--- NOTE | 2025-04-28 13:54 | WOUNDNOTE ---
LOWER BACK, SACRAL/COCCYX
--- NOTE | 2025-04-28 13:55 | WOUNDNOTE ---
LEFT LOWER BACK
--- NOTE | 2025-04-28 13:56 | WOUNDNOTE ---
RIGHT LOWER BACK
--- NOTE | 2025-04-28 13:57 | WOUNDNOTE ---
RIGHT POSTERIOR THIGH
[2025-04-28] MEDS: DAKIN'S SOLUTION 0.125% 1/4 STRENGTH 473 ML TOPICAL (14:00)
[2025-04-28] MEDS: ZOSYN 50 IV ×2 (14:01→18:39)
--- NOTE | 2025-04-28 14:06 | WOUNDNOTE ---
R POSTERIOR LOWER LEG
--- NOTE | 2025-04-28 14:10 | WOUNDNOTE ---
WON RN note: Patient admitted with sepsis.
See H&P for complete history. Lives at home with and caregivers.
PMH: bedbound, immobile and severely contracted with multiple stage 4 pressure injuries, complicated Covid infection with cardiac arrest and anoxic brain injury, CVA, GJ tube and Trach, sepsis.
Wound Location and type/assessment: Patient known to service, last seen 08/19/24 for multiple stage 4 PI's. Since then wounds are much improved. Has healing R mid lower back and R hip stage 4 PI's. Dakin's already on order. Patient incontinent of
stool and urine during assessment, nurse Eunice and Charlotte assisting. Heels and elbows are intact. Has fungal appearing pink rash on posterior lower legs and neck, also improved from last admission. Penis and scrotum blanchable red, mild MASD, L
hip with healed old PI, dry intact scar. Sacrum and buttocks with incontinent associated skin damage. R distal buttock with non blanchable red skin, suspect stage 1 PI. Patient remains severely contracted, nurses using Z flow cushions to pad knees
and lower legs. L dorsal 2nd toe with dry intact scab and blanchable pink skin proximally.
Appetite: NPO, on tube feeding.
Pressure redistribution devices in place: On [facility] air bed, turned and repositioned by staff.
Plan: Dressings changed on all wounds, applied Dakin's moist gauze and foam on 2 remaining open PI's. Protective foams applied to heels and elbow foams maintained. Patient high risk for worsening or additional pressure injuries despite preventative
measures. Confirmed orders with hospitalist Dr. Arroyo at bedside.
Updated nurse Eunice on wound care plan and offloading. Care plan to be updated and will follow as needed.
Note to case management of equipment requested for discharge: air mattress
[2025-04-28] MEDS: VANCOCIN 275 MG IV (14:12)
--- NOTE | 2025-04-28 14:15 | PTCARENOTE ---
Tolerated CT of the head. Upon return wound RN's here and wound assessed and care performed as documented. Procalcitonin sent prior to going to CT scan but needed to use his R foot to get bloodwork.Md's aware- awaiting results. Suctioned for thick
whitish secretions along with pt coughing up a mod to large amt of whitish secretions. VS as documented. G/J tube is clamped currently-will order tube feeds per car dispatcher and md. Pts condom cath came off and pt was incont of a mod amt of yellow
urine. Bladder scanned to check and residual and pt with 476 mls still in his bladder. St cathed for 500 mls of yellow urine. Tolererated. Will leave the condom cath off as skin on his penis above the cath is excoriated. Calazime to buttocks/sacrum.
Mouth care given. Hair washed- outer ear cleaned for large amt of yellowish/brody dried secretions. Anahi care regiven. Turned and repositioned. Positioning cushions placed to protect skin with the contractures. Pt does have sl movement of his R arm
but very little. HOB elevated.
--- NOTE | 2025-04-28 14:22 | WOUNDNOTE ---
RIGHT MID LOWER BACK
[2025-04-28 14:27] LABS: Procalcitonin 0.18 ng/ml (0.0-0.25)
--- NOTE | 2025-04-28 14:32 | WOUNDNOTE ---
LEFT 2ND TOE
[2025-04-28] MEDS: NSS IV (14:35)
--- NOTE | 2025-04-28 14:52 | EEGC.RPT ---
Continuous EEG Report
Recording
Start Date of Data Reviewed: 04/28/25
End Date of Data Reviewed: 04/28/25
Done with Video Recording: Yes
Electrocardiogram: Unremarkable
Report
TECHNICAL REMARKS:��This is a technically satisfactory eighteen channel record employing 21 disc electrodes applied according to a measured international 10-20 electrode placement system.��There were no significant technical difficulties.��The study
was done on a [employer] System.
STUDY DURATION: 27 min 36 sec
MEDICATIONS: Depakote, Keppra
CLINICAL HISTORY: This is a 59-year-old man with postanoxic encephalopathy, bihemispheric strokes with recurrent seizures. �This study was requested to look for epileptiform activity.
REPORT: �At the onset of the EEG, the patient is in altered mental status. The background activity consists of 4�5 hz, impersistent, posteriorly dominant, moderate amplitude, symmetric, and rhythmic activity. Continuous generalized, 2-3 Hz, 30-50 uV
times rhythmic polymorphic delta activity was seen.� Stepwise intermittent photic stimulation did not induce additional abnormalities. Hyperventilation was not performed. No epileptiform activity was seen.� Multiple muscle artifacts were present
limited precise characterization of the record.
�
IMPRESSION: �This is an abnormal EEG recorded in the patient in drowsy state due to a moderate to severe generalized slowing. This finding indicates diffuse cerebral dysfunction, nonspecific in terms of etiology.
--- NOTE | 2025-04-28 15:08 | CM ---
Patient unresponsive, anoxic brain injury. Initial assessment completed with . Patient lives with and 2 children ages 13 and 16, in a 2 story home plus basement with B/B on , ramp to enter. ARGON TESTER patient had no mobility. He has a trach
collar with 5L O2, humidification, GJ Peg tube with continuous feeds pump, hospital bed, kaylee lift which is rarely used, O2 concentrator and tanks. [facility] and [facility] provide equipment and feeds. is primary caregiver. [facility]
health provides RN weekly as well as MEDICAL CUSTOMER SERVICE REPRESENTATIVE 2x/week for bathing. No [facility] benefits. No psychiatric hospitalizations. No HC-POA. PCP is [facility] in [place]. Pharmacy is [facility] on [address] in [place]. Discharge POC: Anticipate home with resumption of
[facility].
--- NOTE | 2025-04-28 15:55 | PTCARENOTE ---
Taken via bed to IR for central line placement
--- NOTE | 2025-04-28 16:10 | W.PN.UPDATE ---
Update Note
Progress Note Update
Contacted patient's , Karyna, via phone. She states that at baseline, her has been nonverbal since 2023 (Previously would answer yes/no). On good days he will turn his head and look at people and blink, but on bad days he will not respond
to much stimuli. He has not had any seizures she has known of in >1 year. She states late on she noticed twitching over his eyebrows, his face scrunching/un-scrunching and a fixated gaze. This was accompanied by coughing and increased
secretions. He had a fever but this resolved, then returned. She contacted his neurology office who instructed her to call 911 prompting this hospitalization.
He has been in nursing facilities before, but lives at home with her normally as he has frequently had infections when near other people. He has visiting nurses two times per week come in to help. She has been aware of his ulcers and has been
changing his bedding daily and trying to keep his wounds clean so they can heal. At this point, her goal is to have him return to home following discharge as she is worried about him getting sick in a nursing facility and also worried about how long
he could even stay in such a facility (Historically, at most, he has only ever stayed for 2 weeks).
[2025-04-28] MEDS: LOVENOX 40 MG SC (17:29)
--- NOTE | 2025-04-28 17:30 | PTCARENOTE ---
Returned at 1700 from IR s/p R EJ TLC placement (per IR unable to access RIJ). Pt arousable to verbal/tactile stimuli but continues with no interaction. Occasional minimal arm movement but not purposeful or to command. Occasional eyebrow movement
but no distinct rhythmic twitching noted. Suctioned just inside the trach stoma which initiates a strong cough for large amt of thick whitish secretions. Sats on 28% Trach collar 98%. VS as documented. Jevity 1.5 tube feeds initiated via L abd G/J
tube. Earlier seemed to be able to get air via the J tube but when tried to flush it to initiate the feeds - unable to flush which when speaking with this am was an issue she was having at home and was using the g tube portion. Initiated at 20
ml/hr with 30 ml/hr flush via the G tube lumen which flushed without diff. G/J tube at 3 cm brittany at bumper. No further urine currently. Turned and repositioned. Skin care given.
--- NOTE | 2025-04-28 17:44 | W.PN.UPDATE ---
Update Note
Progress Note Update
The patient's reported that on night, she found Mr. Levi having seizures, which he hadn't experienced in a long time. She administered Ativan, which temporarily stopped the seizures. However, he subsequently developed coughing,
increased secretions, and a slight fever. The seizures continued in waves.
The following morning, the seizures resumed, prompting her to call 911. She describes the seizures as mild, characterized by eyebrow twitching, the patient looking off into space, eye flickering, and muscle tensing around his scalp. Notably, his
right arm, which had been in constant motion for about 6 months, stopped moving during the seizure episodes.
The patient's cognitive baseline has significantly declined over the past year. He was verbal up until last year but has progressively lost abilities with each seizure event. Following COVID-19 infection and strokes, he retained the ability to speak
phrases and give accurate yes/no responses. However, after experiencing a pulmonary embolism and undergoing a thrombectomy last spring, he became completely non-verbal, possibly due to another stroke.
Beverly Mcknight M.D.
--- NOTE | 2025-04-28 20:00 | PTCARENOTE ---
on assessment pt drowsy, nonverbal, responds to verbal stimuli, opens eyes, unable to follow commands, ST on the monitor, doppler pulses, trace edema, trach stoma with trach collar, large thick secretions, strong cough, course breath sounds, GJ tube
with TF running at 20ml/hour, J tube unable to use per previous shift, no BM, incontinent, multiple wounds see flowsheet
[2025-04-28] MEDS: LIPITOR 40 MG TUBE (20:52)
[2025-04-29] VITALS (25 sets, daily range): BP systolic 87–125; BP diastolic 57–85; BMI 26.6
[2025-04-29] MEDS: DEPACON 58.75 MG IV ×3 (00:11→17:00)
[2025-04-29] MEDS: ZOSYN 50 IV ×5 (00:11→23:51)
[2025-04-29] MEDS: NSS 1000 IV ×2 (00:11→14:49)
[2025-04-29 03:45] LABS: Venous Blood Gas B.E. 1.2 mmol/L (-4 to +4); Venous Blood Gas O2 Sat % 99.5 %
[2025-04-29 03:46] LABS: Venous Blood Gas O2 Therapy 28%
[2025-04-29 03:47] LABS: Hematocrit 28.7 % (39.0-52.0); Hemoglobin 9.1 g/dL (13.0-18.0); Mean Corp Hgb Conc. 31.7 g/dL (33.0-37.0); Mean Corpuscular Volume 107.5 fL (80.0-94.0); Nucleated Red Blood Cells % 0 % (-); Platelet Count 129 10^3/uL (130-400); Red Cell Dist. Width 13.8 % (11.5-14.5)
[2025-04-29 04:15] LABS: ALT (SGPT) 10 U/L (0-50); AST (SGOT) 18 U/L (17-59); Albumin 2.4 g/dl (3.5-5.0); Alkaline Phosphatase 59 U/L (38-126); Blood Urea Nitrogen 24 mg/dl (9-20); Calcium 8.2 mg/dl (8.4-10.2); Carbon Dioxide 28 mmol/L (22-30); Chloride 110 mmol/L (98-107); Estimated Creatinine Clearance 61 ml/min; Glucose 92 mg/dl (70-99); Magnesium 2.1 mg/dl (1.6-2.3); Potassium 3.6 mmol/L (3.5-5.1); Sodium 140 mmol/L (135-145); Total Protein 5.3 g/dl (6.3-8.2); eGFR > 60.00
[2025-04-29] MEDS: SYNTHROID 75 MCG TUBE (05:07)
[2025-04-29] MEDS: VANCOCIN 275 MG IV (05:10)
--- NOTE | 2025-04-29 07:28 | W.PN.HOSP.TC ---
Addendum entered and electronically signed by Armando Arroyo MD 04/29/25 20:03:
Attending Addendum-
I saw and evaluated the patient. I reviewed the resident�s note and agree with findings and plan as documented in the resident�s note. Sub: Patient nonverbal. Appears more alert and closer to baseline mentation today. Unable to nod yes/no to
questions. Full 12 point ROS unable to obtain. Exam: Vitals reviewed in chart GEN-NAD HEENT Right EJ, TC in place with copious creamy secretions heart RRR no MRG Lungs crackles at bases abd GJ tube in place, soft NT ND pos BS LE trace B/L LE edema
Neuro unable to follow commands, severely contracted
Plan:
#Severe Sepsis likely sacral decub stage 4/stage I bilateral buttocks lower back decub
#POA, History of decubitus ulcers with sepsis right iliac-MSSA, Pseudomonas, Streptococcus pyogenes, Proteus Mirabilis, Enterococcus faecalis, Gayle auris
#Chronic bedbound status with contractures/quadriplegia
- Wound culture-P
- per wound care- wounds are healing stage 4
- cont IVF
- has not required pressors
- Right EJ line placed 04/28
- continue vancomycin and Zosyn
- Tylenol via G-tube
- Wound care
- CT abd pelvis 04/27-Minimal pulmonary fibrosis. Mild bronchiectasis. Moderate emphysematous disease. Findings suggestive of fecal impaction, Two 6 mm gallstones.
-Mild diffuse bladder wall thickening. This can be seen with cystitis and bladder outlet obstruction
- urine cx- NGTD
- Blood cx- #1-GPB #2-MRSA
- c/s ID
- check ECHO
- repeat blood cx
- WBC trending down
- continue care in IMU
#Acute exacerbation of seizures in setting of sepsis
#Seizures post anoxic brain injury/Chronic Tremors to RIGHT ARM
- has reported multiple seizures X5 days Facial twitching eye brows move up increased right side / eye gaze numerous per day
- follows with Dr Melissa conrad neuro [place]
- Continue IV Depakote 875mg tid - home dose-Depakote level within normal limits
- cont increased Increase Keppra from 750 mg twice daily to 1000 mg twice daily
- appreciate neuro input
- check EEG
- head CT-no evidence of acute IC hemorrhage
# Chronic hypoxemic respiratory failure
- trach collar with 5 L oxygen wean for 02 90-94%
- appreciate pulm input
- sputum culture-P
- cont guaifenesin
- dc mucomyst in am
- with copious secretions- may need bronch
#Oral thrush
-Iv diflucan x 1 given
#Dysphagia/GJ tube
-NPO
-cont G tube feeds with Jevity
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
-CT head August 2021 showed that he has multiple large areas of cerebral infarction bilaterally with areas of hemorrhagic
transformation with diffuse cerebral edema, mild left to right midline shift.
-repeat CT head- no acute changes
#PE 2023 s/p thrombectomy
#Hypothyroidism
- TSH elevated
- increased levothyroxine to 75
#Paroxysmal A-fib August 2021
-Hold metoprolol due to hypotension
-not on AC due h/o hem CVA
#Anemia of chronic disease
#Iron deficiency anemia
DVT prophylaxis
Subcu Lovenox
Time spent coordinating care, review of plan of care with resident, personally reviewed records in EMR, med rec, consults, notes, labs, radiology, d/w nursing phamacy � 53 mins
Original Note:
Today's Communication/Plan
-
Repeat blood cultures
Consulted Infectious Disease
Assessment / Plan
Assessment / Plan
Assessment
Plan
Sepsis
Unstageable Sacral Decubitus Ulcer
MRSA Bacteremia
Stage I Bilateral Buttocks and Lower Back Decubitus Ulcer
-On admission patient was hypotensive at 89/56, febrile at 101.4, HR 105.
-S/p 5L of NSS in the ED, and continued on IV NS at 100cc/hr. He is no longer hypotensive, but unable to definitively call this shock
-Source of infection is most likely secondary to Decubitus ulcers, but could be urinary
-He has a history of ulcers positive for MSSA, Pseudomonas, Strep. Progenies, Proteus Mirabilis, Enterococcus faecalis in 2023, and Gayle auris in 2024
-09/08 blood cultures have returned positive with one positive for MRSA and one for gram positive bacilli. Ordered repeat blood cultures.
-Will consult Infectious Disease. Will appreciate their insight into this case.
-Continue on IV Vancomycin and IV Zosyn.
-Continue wound care for his sacral wounds
-Continue to follow cultures
-Will monitor
Acute Exacerbation of Seizures
Seizures s/p Anoxic Brain Injury
-S/p anoxic brain injury/hemorrhagic CVA and cardiac arrest in 08/2021 at [facility]
-CT Head 08/2021 showed multiple large areas of cerebral infarction bilaterally with areas of hemorrhagic transformation with diffuse cerebral edema, mild left to right midline shift.
-Increased number of seizures despite compliance with medications over the last 5 days likely secondary to sepsis. Was given Ativan 0.5mg at 8PM on 04/26 prior to reporting to the ED. A single dose of acyclovir 20mg/kg was also given
-Outpatient, patient follows with Neurology at [facility] with Dr. Melissa Frost
-Continue IV Depakote 875mg TID.
-Continue IV Keppra 1000mg BID
-Continue IV Valium until focal seizures stop
-Will monitor
History of Current Trach Collar with 5L Oxygen
-Copious trash secretions noted on arrival
-Sputum culture no growth to date
-Continue guaifenesin 600mg BID
-Continue mucomyst nebulizer
Oral Thrush
-Noted upon arrival
-S/p one time dose of Diflucan 100mg
Anemia of Chronic Disease
Iron Deficiency Anemia
-Continue to monitor H&H
Paroxysmal Atrial Fibrillation
-HOLD metoprolol due to hypotension
Hypothyroidism
-TSH high at 41
-Continue levothyroxine 75 mcg daily
-Will need repeat testing in 2-4 weeks for medication adjustment
History of Shock Liver/Multisystem Organ Dysfunction/Renal Failure in the setting of COVID19 infection 08/2021
History of PE in 2023 (Per )
Anticipated Discharge: > 48 hours
Subjective/Interval History
-
Date of Service: April 29, 2025
Patient was resting in bed when I arrived. Staff reports that since yesterday he has been free of tremors or muscle twitching. He does react to mouth hygeine and suctioning by gagging. At some points during my examination he did appear to look
towards me, overall improved from his state yesterday.
Objective Data
-
Labs:
Laboratory Results
04/29/25
03:33
WBC 12.0 H
Hgb 9.1 L
Hct 28.7 L
Plt Count 129 L
Sodium 140
Potassium 3.6
Chloride 110 H
Carbon Dioxide 28
BUN 24 H
Creatinine 1.1
Glucose 92
Calcium 8.2 L
Total Bilirubin 0.4
AST 18
ALT 10
Alkaline Phosphatase 59
Vital Signs:
Vital Signs
Temp Pulse Resp BP Pulse Ox
98.7 F 78 23 101/68 93
04/29/25 03:32 04/29/25 06:00 04/29/25 06:00 04/29/25 06:00 04/29/25 06:00
I&O
04/28/25 04/29/25 04/30/25
06:59 06:59 06:59
Intake Total 900 / 1000 2978 / 2978
Output Total 1000 / 1000
Balance 900 / 1000 1977
Review of Systems
-
Unable to obtain full review of systems at this time due to: Patient Non-verbal
Physical Exam
-
General: Appears Chronically Ill
Respiratory: Other (Trach collar present, on 5L, mucus noted)
Cardiac: Regular Rhythm and S1/S2
GI: Other (GJ tube in place)
Musculoskeletal: Other (All four limbs held in contracture)
Skin: Warm and Dry
Neuro: Negative Awake, Alert or Oriented
--- NOTE | 2025-04-29 07:30 | PTCARENOTE ---
Received patient A&Ox0, awake, eyes open spontaneously, All extremities contracted, on Trach Collar @FiO2 28%, Large secretions from trach stoma, NSR to ST w/ PVCs, BP WNL, GJ Tube in place @3cm, J port not flushing, TF infusing through G port,
on Retention Protocol.
[2025-04-29] MEDS: MUCOMYST 20% 2 ML INH ×2 (08:14→21:15)
[2025-04-29] MEDS: VENTOLIN NEBULES 2.5 MG INH ×2 (08:14→21:15)
--- NOTE | 2025-04-29 08:30 | PHA.VAN.FU ---
Vancomycin Assessment / Plan
- Assessment
Renal Function: Stable
WBC's are: Trending Down (12 from 17.1)
In the past 24 hrs, patient has been: Afebrile
Concomitant Antimicrobials: Zosyn
- Dosing Plan
Continue: 1250MG Q24H
- Monitoring Plan
No level(s) ordered at this time: Awaiting steady state
- Follow Up
Pharmacy will continue to follow.
Vancomycin Follow UP
- -
Patient Age: 59
Patient Sex: Male
Vancomycin Day #: 2
Indication: Bacteremia
Requesting Provider: Kobe
Pertinent Antimicrobial Allergies:
Levaquin - seizures
Height / Weight:
Height 5 ft 5 in
Actual Weight 72.6 kg
Pertinent Past Medical History: Decubitus ulcers (polymicrobial growth including resistant organisms)
- Vital Signs / Lab Results
Temp Pulse Resp BP Pulse Ox
98.3 F 102 25 101/68 92
04/29/25 08:13 04/29/25 08:22 04/29/25 08:22 04/29/25 06:00 04/29/25 08:22
Lab Results - Hematology
04/27/25 04/28/25 04/29/25
16:18 03:58 03:33
WBC 12.7 H 17.1 H 12.0 H
Lab Results - Chemistry
04/27/25 04/28/25 04/29/25
16:18 03:58 03:33
BUN 32 H 28 H 24 H
Creatinine 1.2 1.1 1.1
Estimated Creat Clear 61 61
Albumin 3.2 L 2.8 L 2.4 L
04/27/25 04/27/25 04/27/25
16:18 16:18 20:15
Lactic Acid 1.3 Cancelled Cancelled
Microbiology Results
04/27/25 16:18 Blood Culture - Preliminary
Blood/Venous Positive culture in progress
Gram Stain - Preliminary
04/27/25 16:53 Blood Culture - Preliminary
Blood/Venous Staph aureus MRSA
Gram Stain - Preliminary
04/27/25 16:18 Blood Culture - Preliminary
Blood/Venous No Growth in 24 hours- Final report to follow
04/28/25 09:52 Gram Stain - Preliminary
Endotracheal
04/27/25 18:11 Urine Culture - Final
Urine NO GROWTH
04/27/25 20:01 Gram Stain - Preliminary
Buttock
04/27/25 16:53 Influenza Types A & B (MAYELA) - Final
Nasal Swab Negative for Influenza A & B, NAAT
Negative results must be combined with clinical observations
and patient history.
Nucleic Acid Amplification test (NAAT)performed on the
[employer] platform.
[2025-04-29] MEDS: FERROUS SULFATE ORAL LIQUID 300 MG TUBE ×2 (09:00→22:02)
[2025-04-29] MEDS: KEPPRA 1000 MG IV ×2 (09:00→22:02)
[2025-04-29] MEDS: DAKIN'S SOLUTION 0.125% 1/4 STRENGTH 473 ML TOPICAL (09:00)
[2025-04-29] MEDS: DESENEX/MITRAZOL/ZEASORB 1 APPLIC TOPICAL (09:00)
[2025-04-29] MEDS: ROBITUSSIN 600 MG TUBE ×2 (09:00→22:02)
--- NOTE | 2025-04-29 09:44 | W.PN.PUL3 ---
Today's Communication / Plan
-
Start support bed
Continue mucolytics
Start nebulized albuterol
Start budesonide to help reduce mucous production
Aspiration precautions
Trach collar with goal SpO2 >90-94%
If patient develops worsening oxygen requirements then may benefit from bronchoscopy for cleanout + cultures
Abx per ID; follow up infectious workup (MRSA on one blood Cx from 04/27; gram-positive rods seen on another BCx from 04/27 - grew GPR in 1 bottle - ?contaminant)
Pulmonary service will continue to follow along
Assessment
-
Impression:
#Febrile illness - DDx includes seizure related vs infection
#Fecal impaction in rectum
#Sacral decubitus ulcer (chronic)
#Leukocytosis � suspected to be reactive however infection also on differential
#Chronic anemia
#Pulmonary fibrosis
#History of eosinophilia (absolute eosinophil count 1200 on 03/16/2025; was as high as 1500 on 06/18/2024)
#Right upper lobe bleb measuring 4.9 cm with bilateral bronchiectasis
#Hx of seizures following hemorrhagic stroke (2021)
#History of COVID-19 pneumonitis complicated by cardiac arrest (2021)
#Paroxysmal A-fib
Plan:
- Pulmonary toilet is flowers as pt has thick, brody colored secretions and nurses are suctioning him almost every 2-3 hours
- Need to keep up with airway suctioning otherwise he will be high risk of plugging
- Continue Mucinex + Mucomyst 20% BID; I will add albuterol to help him expectorate even more; may consider switching to or adding 3% depending on his continued clinical course
- Given his elevated eosinophils in setting of bronchiectasis and large amounts of mucous, I will start inhaled steroids; on recent CT Chest on 04/27/2025, no evidence of bacterial pneumonia
- Maintain SpO2 >90-94% with trach collar
- Continue IVF as this will help reduce viscosity of his mucous
- He has a Hx of hypercapnia --> blood gas checked this morning and no significant hypercapnia seen with pH 7.36, pCO2 48
- Aspiration precautions keeping HOB >30-45�
- Neurology consulted and recs appreciated
- CT head performed yesterday (04/28) showing no acute intracranial hemorrhage with multiple areas of calcification within both hemispheres likely from prior hemorrhagic CVAs
- Defer AEDs to Neuro - currently on valproate + Keppra
- 2 blood cultures from 04/27 are positive --> one is growing gram-positive bacilli and another is growing MRSA
- Need to check echo to eval for vegetation
- Obtain set of surveillance blood Cx
- Trend WBC and temperature curve
- He was malodorous when he was first brought in and continues to have foul odor coming from body
- Wound care - may need general surgery consult depending on wound care recs
- Follow up wound Cx from buttock
- Follow up urine Cx
- Secretions sent for culture from tracheal stoma
- Defer ABx to primary team + ID
- Maintain MAP>65
- Replete electrolytes with K>4, Mg>2
- Maintain euglycemia with goal BG 140-180; last HbA1c 5.1 on 07/11/2024
- Trend H/H and transfuse if needed to keep Hb>7g/dL; keep plt>20k, unless there is concern for bleeding then keep plt>50k
- prn nebulized bronchodilators - not currently bronchospastic
- DVT ppx: LMWH
Given that he is on a trach collar with pulmonary fibrosis and multifocal areas of bronchiectasis, Pulmonary service will continue to follow along.
Data:
CT Chest/Abd/Pelvis with IV contrast 04/27/2025:
No acute disease of the chest.
Minimal pulmonary fibrosis. New., Mild bronchiectasis. New. Moderate emphysematous disease. Stable
Findings suggestive of fecal impaction. Progressed
Two 6 mm gallstones. Stable
Mild diffuse bladder wall thickening. This can be seen with cystitis and bladder outlet obstruction. New
Total time spent today was 36 minutes for this encounter. Time includes reviewing laboratory test/imaging results, reviewing pertinent medical records, obtaining and reviewing medical history, performing an appropriate exam, ordering medications,
tests and procedures. Time also includes documentation of this encounter, coordinating patient care and communicating with other healthcare professionals. Total time does not include separately billed tests performed on this date of service.
Subjective Data
-
Date of Service:
Date of Service: April 29, 2025
Chief Complaint: Pulmonary Follow Up
Subjective:
Patient was seen and evaluated today at bedside. Continues to have thick, brody secretions and requires frequent suctioning by nursing staff. He is asleep in no acute distress. Heart rate 80, BP 120/73 and saturating 99% on trach collar at 28% FiO2.
Review of Systems
General: Unobtainable - Pat Unresp
Objective Data
Data Reviewed
Vital Signs / I&O / Oxygen:
Vital Signs
Temp Pulse Resp BP Pulse Ox
98.3 F 102 25 101/68 92
04/29/25 08:13 04/29/25 08:22 04/29/25 08:22 04/29/25 06:00 04/29/25 08:22
Intake and Output
04/28/25 04/29/25 04/30/25
06:59 06:59 06:59
Intake Total 900 / 1000 2978 / 2978
Output Total 1000 / 1000
Balance 900 / 1000 1977
SaO2 92
Nasal Cannula flow liters per 5
minute
Physical Exam
General: Respiratory Distress (negative), Comfortable and Chills (negative)
HEENT: Normocephalic, Anicteric and Other (tracheostomy)
Cardiovascular: S1-S2 and Peripheral Edema (Trace LE edema bilaterally)
Respiratory: Wheeze (negative), Crackles (negative), Rhonchi (Bilateral), Non-Labored Respirations and Stridor (negative)
GI: Soft, Non Distended, Non Tender, Normal Bowel Sounds and Feeding Tube
Neurology: Tremors (negative) and Non Verbal
Skin: Warm, Dry, Cyanosis (negative) and Other (contracted limbs)
Labs/Micro/Reports
Lab Data
04/29/25 03:33
04/29/25 03:33
Microbiology
04/27/25 20:01 Buttock Wound Culture - Preliminary
04/27/25 20:01 Buttock Gram Stain - Preliminary
04/28/25 09:52 Endotracheal Respiratory Culture - Preliminary
04/28/25 09:52 Endotracheal Gram Stain - Preliminary
04/27/25 16:18 Blood/Venous Blood Culture - Preliminary
Positive culture in progress
04/27/25 16:18 Blood/Venous Gram Stain - Preliminary
04/27/25 16:53 Blood/Venous Blood Culture - Preliminary
Staph aureus MRSA
04/27/25 16:53 Blood/Venous Gram Stain - Preliminary
04/27/25 16:18 Blood/Venous Blood Culture - Preliminary
No Growth in 24 hours- Final report to follow
04/27/25 18:11 Urine Urine Culture - Final
NO GROWTH
04/27/25 16:53 Nasal Swab Influenza Types A & B (MAYELA) - Final
Negative for Influenza A & B, NAAT
Negative results must be combined with clinical observations
and patient history.
Nucleic Acid Amplification test (NAAT)performed on the
[employer] platform.
[2025-04-29 11:28] LABS: Glycohemoglobin (HgbA1c) 5.1 % (4.0-5.6)
--- NOTE | 2025-04-29 13:29 | CON.ID ---
Consultation
-
Date/Time Consultation Requested: 04/29/25 1036
Date/Time Consultation Performed: 04/29/2025 1330
Requesting Provider: Dr. Bullock
Performing Provider: Dr. Daigle
Reason for Consultation: Bacteremia; clinical sepsis
Chief Complaint / Past History
History of Present Illness
Ruben Levi is a 58 year old male with history of anoxic brain injury (nonverbal), seizure disorder on keppra, contractures, numerous pressure related injuries being evaluated at the request of Dr. Bullock in regards to bacteremia. History
is obtained from chart review alone, as the patient cannot provide any history for me given chronic nonverbal nature.
The patient presents to [facility] on 04/27/2025 secondary to reported increased seizure activity by his , his main caregiver. Per reviewed records, his reported twitching of the eyebrows and increased staring. She called her
primary care physician who prescribed Ativan, but there was no improvement in symptomatology. There was a reported fever to 100.7 degrees at home.
In the ER he was found to be hypotensive and tachycardic, with fever. Workup in the emergency room revealed a leukocytosis, and blood cultures obtained at the time of admission are now positive for MRSA. Infectious Diseases is asked to comment
upon further antimicrobial management.
In review of old records, the patient has a significant past medical history of COVID pneumonitis in 2021 complicated by cardiac arrest, anoxic brain injury, hemorrhagic CVA and resultant seizures. Patient is bedbound and contracted at present.
Past History
Additional Past Medical History:
Paroxysmal Atrial Fibrillation
Anoxic Brain Injury
Multiple Stage IV Pressure Injuries
Anemia of Chronic Disease and Iron Deficiency Anemia
Seizure Disorder
Esophagitis / Esophageal Ring
Additional Past Surgical History:
Appendectomy
Tonsillectomy
Allergy History:
levofloxacin Allergy (Verified 04/27/25 17:42)
seizure
phenobarbital Allergy (Verified 04/27/25 16:08)
Unknown
propofol Allergy (Verified 04/27/25 17:42)
per [facility] paperwork
Medications Reviewed: Yes
Current Antibiotics:
Vancomycin (dosing per pharmacy)
Zosyn 3.375 gm IV q.6 hours
Social History
Tobacco: Non-Smoker
Alcohol: None
Drug: None
Living: With Family
Family History
Family History: Not Pertinent
Review of Systems
Vital Signs
Temp Pulse Resp BP Pulse Ox
98.5 F 102 25 101/68 92
04/29/25 12:00 04/29/25 08:22 04/29/25 08:22 04/29/25 06:00 04/29/25 08:22
Physical Exam
Physical Exam
Constitutional: Acutely Ill, Chronically Ill, Non-toxic, Cachetic and Other (Diffusely contracted.)
Head: Normocephalic and Other (Tracheostomy with cream-colored secretions)
Eyes: Pupils Equal, Pupils Round, No Conjunctival Hemorrhage and Sclera Anicteric
Cardiovascular: Regular Rate and S1/S2; Negative Murmur or Rub
Pulmonary: Coarse, Non Labored and Other (Trach collar in place)
Gastrointestinal: Soft, Non Tender, Non Distended and Normal Bowel Sounds
Extremities: Other
Musculoskeletal: Other
Skin: Warm and Dry; Negative Rash or Jaundice
Wound: Other (numerous: right medial leg clean base no erythema/warmth/tenderness/drainage, right lateral foot - some surrounding erythema, right elbow - surrounding erythema, right hip - granulation tissue with surrounding erythema, L neck -
crusting surrounding erythema, right iliac crest - clean base - erythe )
Neurological: Awake and Other (Nonverbal)
Psychological: Calm
Wounds : sacral wound - clean base no necrotic tissue, surrounding erythema,
(R) hip - stage 3 with mild periwound erythema. No purulence
(R) posterior leg - superficial wound with erythematous base
Lab / Diagnostic Study Results
04/29/25 03:33
04/29/25 03:33
Abs Immat Gran (auto) 0.0 10^3/uL (0-0.05) 04/29/25 03:33
Absolute Neuts (auto) 9.4 10^3/uL (1.4-6.5) H 04/29/25 03:33
Absolute Lymphs (auto) 0.9 10^3/uL (1.2-3.4) L 04/29/25 03:33
Absolute Monos (auto) 1.4 10^3/uL (0.1-0.6) H 04/29/25 03:33
Absolute Basos (auto) 0.0 10^3/uL (0-0.2) 04/29/25 03:33
Immature Gran % 0.3 % (0-0.5) 04/29/25 03:33
Neutrophils % 77.9 % (42.2-75.2) H 04/29/25 03:33
Lymphocytes % 7.3 % (20.5-51.1) L 04/29/25 03:33
Monocytes % 12.0 % (1.7-9.3) H 04/29/25 03:33
Eosinophils % 2.2 % (0-6) 04/29/25 03:33
Basophils % 0.3 % (0-2) 04/29/25 03:33
PT 16.2 Sec (11.4-14.6) H 04/28/25 03:58
INR 1.27 04/28/25 03:58
Lactic Acid Cancelled 04/27/25 20:15
Procalcitonin 0.18 ng/ml (0.0-0.25) 04/28/25 12:09
Ur Squamous Epith Cells 0-2 /LPF (Few) 04/27/25 18:11
Microbiology Results
Micro:
04/27/25 16:53 Blood Culture - Preliminary
Blood/Venous Staph aureus MRSA
Gram Stain - Preliminary
04/27/25 16:18 Blood Culture - Preliminary
Blood/Venous Positive culture in progress
Gram Stain - GPC's preliminary
04/27/25 20:01 Wound Culture - Preliminary
Buttock Gram Stain - Preliminary
04/28/25 09:52 Respiratory Culture - Preliminary
Endotracheal Gram Stain - Preliminary
04/27/25 16:18 Blood Culture - Preliminary
Blood/Venous No Growth in 24 hours- Final report to follow
04/27/25 18:11 Urine Culture - Final
Urine NO GROWTH
04/27/25 16:53 Influenza Types A & B (MAYELA) - Final
Nasal Swab Negative for Influenza A & B, NAAT
Negative results must be combined with clinical observations
and patient history.
Nucleic Acid Amplification test (NAAT)performed on the
[employer] platform.
Imaging:
04/27/2025 CT chest/abdomen/pelvis with IV contrast: no acute disease in the chest. Minimal pulmonary fibrosis. Mild bronchiectasis. Moderate emphysematous disease. Findings suggestive of fecal impaction, progressed. Two 6 mm gallstones, stable.
Mild diffuse bladder wall thickening which can be seen in cystitis and bladder outlet obstruction. Please see full dictation for additional detail.
Assessment / Plan
MRSA bacteremia
- Source unclear - ?Sacrum ?urine ?lung
Leukocytosis
Fever
Seizures
Paroxysmal Atrial Fibrillation
Anoxic Brain Injury
Multiple Stage IV Pressure Injuries
Severe contractures
Anemia of Chronic Disease and Iron Deficiency Anemia
Seizure Disorder
Esophagitis / Esophageal Ring
Recommendations:
Continue with empiric vancomycin and Zosyn.
Repeat blood cultures ordered.
Monitor white count and temperature curve.
Local care to multiple body wounds.
Continue with supportive measures.
Further recommendations as additional data is returned.
Care Review
Plan reviewed with: Nurse
--- NOTE | 2025-04-29 15:32 | CM ---
Bacteremia, Sepsis. Discharge POC: [facility] primary caregiver[facility] and [employer]STITUTIONAL AIDE 2x/week for bathing
[2025-04-29] MEDS: LOVENOX 40 MG SC (17:45)
[2025-04-29] MEDS: PULMICORT 0.5 MG INH (21:15)
[2025-04-29] MEDS: LIPITOR 40 MG TUBE (22:02)
[2025-04-30] VITALS (19 sets, daily range): BP systolic 90–138; BP diastolic 57–90; BMI 27.4
[2025-04-30] MEDS: DEPACON 58.75 MG IV ×2 (00:36→09:05)
[2025-04-30 04:03] LABS: Hematocrit 27.2 % (39.0-52.0); Hemoglobin 8.6 g/dL (13.0-18.0); Mean Corp Hgb Conc. 31.6 g/dL (33.0-37.0); Mean Corpuscular Volume 107.9 fL (80.0-94.0); Nucleated Red Blood Cells % 0 % (-); Platelet Count 120 10^3/uL (130-400); Red Cell Dist. Width 13.8 % (11.5-14.5)
[2025-04-30 04:35] LABS: ALT (SGPT) < 10 U/L (0-50); AST (SGOT) 16 U/L (17-59); Albumin 2.1 g/dl (3.5-5.0); Alkaline Phosphatase 62 U/L (38-126); Blood Urea Nitrogen 23 mg/dl (9-20); Calcium 8.1 mg/dl (8.4-10.2); Carbon Dioxide 29 mmol/L (22-30); Chloride 111 mmol/L (98-107); Estimated Creatinine Clearance 67 ml/min; Glucose 120 mg/dl (70-99); Potassium 3.6 mmol/L (3.5-5.1); Sodium 140 mmol/L (135-145); Total Protein 4.9 g/dl (6.3-8.2); eGFR > 60.00
[2025-04-30] MEDS: ZOSYN 50 IV ×2 (05:06→11:28)
[2025-04-30] MEDS: VANCOCIN 275 MG IV (05:09)
[2025-04-30] MEDS: SYNTHROID 75 MCG TUBE (05:15)
--- NOTE | 2025-04-30 07:00 | PTCARENOTE ---
Received pt with eyes open.Does not track.Does not follow commands or attempt to communicate.BL upper and lower extremities are contracted.SR-ST noted.Right TLC intact with IVF.28 % trach collar intact to trach stoma.POX 98%Coughing/expectorating
thick brody white sputum occasionally.Scattered coarse rhonchi noted.G/J tube intact.Jevity as ordered.Moderate BM noted.Incontinent large amount yellow urine.Skin integrity as documented.No family presence at this time.
--- NOTE | 2025-04-30 07:15 | W.PN.HOSP.TC ---
Addendum entered and electronically signed by Armando Arroyo MD 04/30/25 20:39:
Attending Addendum-
I saw and evaluated the patient. I reviewed the resident�s note and agree with findings and plan as documented in the resident�s note. Sub: Patient nonverbal. Unable to nod yes/no to questions. No acute overnight events per nursing. Full 12 point
ROS unable to obtain. Exam: Vitals reviewed in chart GEN-NAD HEENT Right EJ, TC in place, heart RRR no MRG, Lungs crackles at bases abd GJ tube in place, soft NT ND pos BS LE +1 B/L LE edema Neuro unable to follow commands, severely contracted
Plan:
#Severe Sepsis likely sacral decub stage 4/stage I bilateral buttocks/healing right mid lower back and right hip stage 4 PI
#POA
#Chronic bedbound status with contractures/functional quadriplegia
- Wound culture-polymicrobial as expected
- cont wound care
- DC IVF
- has not required pressors
- Right EJ line placed 04/28
- Blood cx- 1/3-MRSA, 2/3-diphtheroids likely contaminant
- continue vanco DC zosyn
- ID input appreciated
- ECHO 04/30- LVEF WNL, no obvious signs of vegetation
- repeat blood cx-NGTD
- WBC now WNL
- transfer to med surg from IMU
#Acute exacerbation of seizures in setting of sepsis
#Seizures post anoxic brain injury/Chronic Tremors to RIGHT ARM
- has reported multiple seizures X5 days Facial twitching eye brows move up increased right side / eye gaze numerous per day
- follows with Dr Melissa conrad neuro [place]
- Continue IV Depakote 875mg tid - home dose
- cont increased Increase Keppra from 750 mg twice daily to 1000 mg twice daily
- appreciate neuro input
# Chronic hypoxemic respiratory failure
- trach collar with 5 L oxygen wean for 02 90-94%
- appreciate pulm input
- sputum culture-colonized
- cont guaifenesin
- cont mucolytics and nebs
#Dysphagia/GJ tube
-NPO
-cont G tube feeds with Jevity
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
#PE 2023 s/p thrombectomy
#Hypothyroidism- TSH elevated - increased levothyroxine to 75
#Paroxysmal A-fib August 2021
-metoprolol held due to hypotension- restart prior to DC
-not on AC due h/o hem CVA
#Anemia of chronic disease
#Iron deficiency anemia
DVT prophylaxis
Subcu Lovenox
Code- DNR
Dispo-from home with - requesting to be sent home not SNF hopeful DC home soon
Time spent coordinating care, review of plan of care with resident, personally reviewed records in EMR, med rec, consults, notes, labs, radiology, d/w nursing, pharmacy � 51 mins
Original Note:
Today's Communication/Plan
-
Continue IV antibiotics
Pending repeat blood cultures
Assessment / Plan
Assessment / Plan
Assessment
This is a 59 y/o male with pmhx of quadriplegia, paroxysmal afib, decubitus ulcers, seizure disorder s/p anoxic brain injury taking Keppra (750mg BID) and Depakote (875mg TID) who presented to the ED with increased seizure activity in the setting of
sepsis.
Plan
Sepsis
Unstageable Sacral Decubitus Ulcer
MRSA Bacteremia
Stage I Bilateral Buttocks and Lower Back Decubitus Ulcer
Stage IV mid lower back pressure ulcer
Stage IV right hip pressure ulcer
-On admission patient was hypotensive at 89/56, febrile at 101.4, HR 105.
-S/p 5L of NSS in the ED, and continued on IV NS at 100cc/hr. He is no longer hypotensive, but unable to definitively call this shock
-Source of infection is most likely secondary to Decubitus ulcers
-He has a history of ulcers positive for MSSA, Pseudomonas, Strep. Progenies, Proteus Mirabilis, Enterococcus faecalis in 2023, and Gayle auris in 2024
-2/ blood cultures have returned positive with one positive for MRSA and one for gram positive bacilli. Pending repeat blood cultures.
-Infectious Disease is following. Will appreciate their insight into this case.
-Continue on IV Vancomycin. IV Zosyn has been discontinued by Infectious Disease today
-Continue wound care for his sacral wounds
-Continue to follow cultures
-Will monitor
Acute Exacerbation of Seizures, Resolved
Seizures s/p Anoxic Brain Injury
Functional Quadriplegia
-S/p anoxic brain injury/hemorrhagic CVA and cardiac arrest in 08/2021 at [facility]
-CT Head 08/2021 showed multiple large areas of cerebral infarction bilaterally with areas of hemorrhagic transformation with diffuse cerebral edema, mild left to right midline shift.
-Increased number of seizures despite compliance with medications over the last 5 days likely secondary to sepsis. Was given Ativan 0.5mg at 8PM on 04/26 prior to reporting to the ED. A single dose of acyclovir 20mg/kg was also given
-Outpatient, patient follows with Neurology at [facility] with Dr. Melissa Frost
-Continue Depakote 875mg TID, now via tube feed
-Continue Keppra 1000mg BID, now via tube feed
-Discontinued IV Valium, last dose 04/27/2025
-Will monitor
History of Current Trach Collar with 5L Oxygen
-Copious trash secretions noted on arrival, and again today
-Sputum culture no growth to date
-Continue guaifenesin 600mg BID
-Continue mucomyst nebulizer
Oral Thrush
-Noted upon arrival
-S/p one time dose of Diflucan 100mg
Anemia of Chronic Disease
Iron Deficiency Anemia
-Continue to monitor H&H
Paroxysmal Atrial Fibrillation
-HOLD metoprolol due to hypotension
Hypothyroidism
-TSH high at 41
-Continue levothyroxine 75 mcg daily
-Will need repeat testing in 2-4 weeks for medication adjustment
History of Shock Liver/Multisystem Organ Dysfunction/Renal Failure in the setting of COVID19 infection 08/2021
History of PE in 2023 (Per )
Dispo: Will contact again today regarding ongoing care
Anticipated Discharge: > 48 hours
Subjective/Interval History
-
Date of Service: April 30, 2025
Patient was resting in his room when I arrived. He responds minimally to the sound of my voice, only briefly glancing towards me when I loudly call his name and touch his arm. He continues to be nonverbal. Spoke to nursing staff, no significant
change overnight.
Objective Data
-
Labs:
Laboratory Results
04/30/25
03:53
WBC 7.5
Hgb 8.6 L
Hct 27.2 L
Plt Count 120 L
Sodium 140
Potassium 3.6
Chloride 111 H
Carbon Dioxide 29
BUN 23 H
Creatinine 1.0
Glucose 120 H
Calcium 8.1 L
Total Bilirubin 0.2
AST 16 L
ALT < 10
Alkaline Phosphatase 62
Vital Signs:
Vital Signs
Temp Pulse Resp BP Pulse Ox
98.2 F 102 19 101/67 96
04/30/25 03:13 04/30/25 05:00 04/30/25 05:00 04/30/25 05:00 04/30/25 05:00
I&O
04/29/25 04/30/25 05/01/25
06:59 06:59 06:59
Intake Total 2978 / 3148 3580 / 3580
Output Total 1000 / 1000
Balance 1977 3580 / 3580
Review of Systems
-
Unable to obtain full review of systems at this time due to: Patient Non-verbal
Physical Exam
-
General: Appears Chronically Ill
HEENT: Other (The trach collar site is covered with thick white secretions. The skin is now pink and moist from frequent secretions even after suction)
Respiratory: Rhonchi and Other (Trach Collar in place, 5L O2)
Cardiac: Regular Rhythm and S1/S2
Musculoskeletal: Other (Limbs held in contracture)
Skin: Warm, Dry and Other (There is a new area of scaly, white skin near the lobe of the right ear. )
Neuro: Negative Awake or Alert
[2025-04-30] MEDS: VENTOLIN NEBULES 2.5 MG INH ×2 (07:40→20:21)
[2025-04-30] MEDS: MUCOMYST 20% 2 ML INH ×2 (07:40→20:20)
[2025-04-30] MEDS: PULMICORT 0.5 MG INH ×2 (07:40→20:21)
[2025-04-30] MEDS: KEPPRA 1000 MG IV (09:04)
[2025-04-30] MEDS: ROBITUSSIN 600 MG TUBE (09:05)
[2025-04-30] MEDS: FERROUS SULFATE ORAL LIQUID 300 MG TUBE ×2 (09:05→20:53)
[2025-04-30] MEDS: DAKIN'S SOLUTION 0.125% 1/4 STRENGTH 1 ML TOPICAL (09:06)
[2025-04-30] MEDS: DESENEX/MITRAZOL/ZEASORB 1 APPLIC TOPICAL (09:06)
--- NOTE | 2025-04-30 09:16 | W.PN.PUL3 ---
Today's Communication / Plan
-
Sport bed
Continue mucolytics
Continue nebulized albuterol, budesonide and mucomyst
Start nebulized 3% NS; raised mucinex to 1200mg BID
Aspiration precautions
Trach collar with goal SpO2 >90-94%
If patient develops worsening oxygen requirements then may benefit from bronchoscopy for cleanout + cultures
Abx per ID; follow up infectious workup (MRSA on one blood Cx from 04/27 --> follow up set of surveillance BCx); TTE negative for vegetation, may need DANIE
Pulmonary service will continue to follow along
Assessment
-
Impression:
#Febrile illness - due to bacteremia
#Fecal impaction in rectum
#Sacral decubitus ulcer (chronic)
#Leukocytosis
#Chronic anemia
#Pulmonary fibrosis
#History of eosinophilia (absolute eosinophil count 1200 on 03/16/2025; was as high as 1500 on 06/18/2024)
#Right upper lobe bleb measuring 4.9 cm with bilateral bronchiectasis
#Acute flare of bronchiectasis with increased secretions
#Hx of seizures following hemorrhagic stroke (2021)
#History of COVID-19 pneumonitis complicated by cardiac arrest (2021)
#Paroxysmal A-fib
Plan:
- Pulmonary toilet is flowers as pt has thick, brody colored secretions and nurses are suctioning him almost every 2-3 hours
- Need to keep up with airway suctioning otherwise he will be at high risk of plugging
- Continue Mucinex, mucomyst 20% BID and nebulized albuterol to help him expectorate; I will also add 3% to assist even further with suctioning
- prn nebulized bronchodilators - not currently bronchospastic
- Given his elevated eosinophils in setting of bronchiectasis and large amounts of mucous, I started nebulized steroids with pulmicort; on recent CT Chest on 04/27/2025, no evidence of bacterial pneumonia
- Maintain SpO2 >90-94% with trach collar
- s/p IVF; continue with tube feeds for now
- He has a Hx of hypercapnia --> blood gas checked on AM of 04/29 and no significant hypercapnia seen with pH 7.36, pCO2 48
- Aspiration precautions keeping HOB >30-45�
- Neurology consulted and recs appreciated
- CT head performed on 04/28 showed no acute intracranial hemorrhage with multiple areas of calcification within both hemispheres likely from prior hemorrhagic CVAs
- Defer AEDs to Neuro - currently on valproate + Keppra
- 2 blood cultures from 04/27 are positive --> both are growing diphtheroids and 1 blood culture is growing MRSA; Manju's blood cultures collected on 04/29 which shows NGTD
- TTE performed today does not show any evidence of vegetation
- Depending if surveillance blood cultures are positive, he may need a DANIE to further evaluate for endocarditis
- Obtain set of daily surveillance blood Cx, as requested by ID
- Trend WBC and temperature curve
- He was malodorous when he was first brought in and continues to have a generalized foul odor coming from body
- Wound care to sacrum and other chronic wounds- may need general surgery consult depending on wound care recs
- Follow up wound Cx from buttock (GNR x 3 morphologies, Streptococcus spp and diphtheroids x 2 morphologies)
- Follow up urine Cx (NGTD)
- Secretions sent for culture from tracheal stoma (growing 3 different morphologies of moderate GNR --> likely colonization; follow-up species)
- Defer ABx to primary team + ID --> had been on Vanco/Zosyn however Zosyn has now been discontinued
- Maintain MAP>65
- Replete electrolytes with K>4, Mg>2
- Maintain euglycemia with goal BG 140-180; last HbA1c 5.1 on 07/11/2024
- Trend H/H and transfuse if needed to keep Hb>7g/dL; keep plt>20k, unless there is concern for bleeding then keep plt>50k
- DVT ppx: LMWH
Code status: DNR/DNI
Given that he is on a trach collar with pulmonary fibrosis and multifocal areas of bronchiectasis, Pulmonary service will continue to follow along.
Data:
CT Chest/Abd/Pelvis with IV contrast 04/27/2025:
No acute disease of the chest.
Minimal pulmonary fibrosis. New., Mild bronchiectasis. New. Moderate emphysematous disease. Stable
Findings suggestive of fecal impaction. Progressed
Two 6 mm gallstones. Stable
Mild diffuse bladder wall thickening. This can be seen with cystitis and bladder outlet obstruction. New
Total time spent today was 38 minutes for this encounter. Time includes reviewing laboratory test/imaging results, reviewing pertinent medical records, obtaining and reviewing medical history, performing an appropriate exam, ordering medications,
tests and procedures. Time also includes documentation of this encounter, coordinating patient care and communicating with other healthcare professionals. Total time does not include separately billed tests performed on this date of service.
Subjective Data
-
Date of Service:
Date of Service: April 30, 2025
Chief Complaint: Pulmonary Follow Up
Subjective:
Patient was seen and evaluated today at bedside. Remains on trach collar at 28% FiO2, saturating 97% with heart rate 87 and BP 135/90. Continues to have thick, brody-colored secretions. The respiratory culture that was collected 2 days ago is now
growing gram-negative bacilli x 3 morphologies (hence likely colonization), and the same gram-negative bacilli x 3 morphologies also seen in the sacral wound in addition to Streptococcus species and diphtheroids x 2 morphologies. Urine culture
remains with no growth today. Patient has not had a fever since overnight on 04/28/2025.
Review of Systems
General: Unobtainable - Pat Unresp
Objective Data
Data Reviewed
Vital Signs / I&O / Oxygen:
Vital Signs
Temp Pulse Resp BP Pulse Ox
98.2 F 75 23 114/76 96
04/30/25 03:13 04/30/25 07:42 04/30/25 07:42 04/30/25 07:00 04/30/25 07:42
Intake and Output
04/29/25 04/30/25 05/01/25
06:59 06:59 06:59
Intake Total 2978 / 3148 3580 / 3580
Output Total 1000 / 1000
Balance 1977 3580 / 3580
SaO2 96
Nasal Cannula flow liters per 5
minute
Physical Exam
General: Respiratory Distress (negative), Comfortable and Chills (negative)
HEENT: Normocephalic, Anicteric and Other (tracheostomy)
Cardiovascular: S1-S2 and Peripheral Edema (Trace LE edema bilaterally)
Respiratory: Wheeze (negative), Crackles (negative), Rhonchi (Bilateral), Non-Labored Respirations and Stridor (negative)
GI: Soft, Non Distended, Non Tender, Normal Bowel Sounds and Feeding Tube
Neurology: Tremors (negative) and Non Verbal
Skin: Warm, Dry, Cyanosis (negative) and Other (contracted limbs)
Labs/Micro/Reports
Lab Data
04/30/25 03:53
04/30/25 03:53
Microbiology
04/28/25 09:52 Endotracheal Respiratory Culture - Preliminary
Gram negative bacilli
Additional testing on request
04/28/25 09:52 Endotracheal Gram Stain - Preliminary
04/27/25 16:18 Blood/Venous Blood Culture - Preliminary
No Growth in 48 hours- Final report to follow
04/27/25 16:53 Blood/Venous Blood Culture - Preliminary
Staph aureus MRSA
04/27/25 16:53 Blood/Venous Gram Stain - Preliminary
04/27/25 16:18 Blood/Venous Blood Culture - Preliminary
Positive culture in progress
04/27/25 16:18 Blood/Venous Gram Stain - Preliminary
04/27/25 20:01 Buttock Wound Culture - Preliminary
09/23/25 20:01 Buttock Gram Stain - Preliminary
04/27/25 18:11 Urine Urine Culture - Final
NO GROWTH
04/27/25 16:53 Nasal Swab Influenza Types A & B (MAYELA) - Final
Negative for Influenza A & B, NAAT
Negative results must be combined with clinical observations
and patient history.
Nucleic Acid Amplification test (NAAT)performed on the
[employer] platform.
--- NOTE | 2025-04-30 12:06 | PTCARENOTE ---
Pt assessed.No change in assessment noted.
--- NOTE | 2025-04-30 13:16 | PN.CDI ---
CDI
- -
CDI:
Physician Documentation Request
Admit Date: 04/27/25 20:15
Dear Doctor Kobe,
Patient admitted with severe sepsis.
04/30 PN, '....sacral decub stage 4/stage I bilateral buttocks lower back decub.'
04/28 [facility] note, 'Has healing R mid lower back and R hip stage 4 PI's....'
Physician documentation of the type and location of wounds is required for compliant documentation. Based on the above clinical findings and your assessment, please provide the following in your progress note:
Type (etiology) of ulcer/wound:
- Pressure (decubitus) ulcer
- Other
- Unable to determine
For a pressure ulcer, please also include the stage* of the ulcer:
- Stage 1 - Skin intact, non-blanchable redness
- Stage 2 - Partial thickness loss of dermis, includes intact or open blister
- Stage 3 - Full thickness tissue not including bone, tendon or muscle
- Stage 4 - Full thickness tissue loss, including exposed bone, tendon or muscle
- Unstageable - Full thickness loss in which the base of the ulcer is covered by slough (yellow, brody, porter, green or brown) and/or eschar (brody, brown or black) in the wound bed.
- Unable to determine
Use of terms such as suspected, likely, concern for, or probable (associated with a specific diagnosis that is being evaluated, monitored, or treated as if it exists) are acceptable and can be coded in the inpatient setting, when documented at the
time of discharge.
Thank you,
Karyna ISAAC,RN,CCDS
CDI Specialist
Available via [place] text
Please use your independent medical judgment in providing your response.
*Source: National Pressure Ulcer Advisory Panel (NPUAP)
--- NOTE | 2025-04-30 13:18 | W.PN.ID1 ---
Date of Service
Date of Service: April 30, 2025
Today's Communication
Await TTE.
Repeat blood cx's
DC Zosyn. Continue Vanco.
Assessment / Plan
MRSA bacteremia 1 of 3 sets
- Source unclear - ?Sacrum
Diphtheroid bacteremia 2 of 3 sets
-Suspect contaminants
Leukocytosis
- resolved
Fever - resolved
Seizures
Paroxysmal Atrial Fibrillation
Anoxic Brain Injury
Multiple Stage IV Pressure Injuries
Severe contractures
Anemia of Chronic Disease and Iron Deficiency Anemia
Seizure Disorder
Esophagitis / Esophageal Ring
Recommendations:
Ucx neg.
CXR and CT chest neg parenchymal opacities.
Repeat blood cx's
TTE pending
Continue IV vancomycin
DC Zosyn.
Chief Complaint
-: Bacteremia
Subjective / Review of Systems
nonverbal
Vital Signs / Physical Exam
Vital Signs
Vital Signs
Temp Pulse Resp BP Pulse Ox
99 F 88 22 135/90 97
04/30/25 12:06 04/30/25 12:00 04/30/25 12:00 04/30/25 12:00 04/30/25 12:00
Physical Exam
Constitutional: Chronically Ill and Cachetic
Cardiovascular: Regular Rate and S1/S2
Pulmonary: Rhonchi and Other (Trach collar in place)
Gastrointestinal: Soft, Non Tender and Non Distended
Genito-Urinary: Rpince and Clear Urine
Musculoskeletal: Other (contracted extremities)
Wound: Other (sacral wounds with granulating base, no drainage, no surrounding erythema)
Objective Data
Lab Data
Lab Results
04/30/25 03:53
04/30/25 03:53
PT 16.2 Sec (11.4-14.6) H 04/28/25 03:58
INR 1.27 04/28/25 03:58
APTT 25.7 Sec (23.4-35.0) 04/28/25 03:58
Estimated Creat Clear 67 ml/min 04/30/25 03:53
Lactic Acid Cancelled 04/27/25 20:15
Total Bilirubin 0.2 mg/dl (0.2-1.3) 04/30/25 03:53
AST 16 U/L (17-59) L 04/30/25 03:53
ALT < 10 U/L (0-50) 04/30/25 03:53
Alkaline Phosphatase 62 U/L (38-126) 04/30/25 03:53
Most recent labs reviewed.
Micro Results:
04/27/25 20:01 Wound Culture - Preliminary
Buttock Gram negative bacilli
Streptococcus species
Diptheroids
Additional testing on request
Gram Stain - Preliminary
04/27/25 16:53 Blood Culture - Preliminary
Blood/Venous Staph aureus MRSA
Diptheroids
Gram Stain - Preliminary
04/27/25 16:18 Blood Culture - Preliminary
Blood/Venous Diptheroids
Gram Stain - Preliminary
04/28/25 09:52 Respiratory Culture - Preliminary
Endotracheal Gram negative bacilli
Additional testing on request
Gram Stain - Preliminary
04/29/25 18:31 Blood Culture - Pending
Blood/Venous
04/27/25 16:18 Blood Culture - Preliminary
Blood/Venous No Growth in 48 hours- Final report to follow
04/27/25 18:11 Urine Culture - Final
Urine NO GROWTH
04/27/25 16:53 Influenza Types A & B (MAYELA) - Final
Nasal Swab Negative for Influenza A & B, NAAT
Negative results must be combined with clinical observations
and patient history.
Nucleic Acid Amplification test (NAAT)performed on the
[employer] platform.
Imaging:
04/27/2025 CT chest/abdomen/pelvis with IV contrast: no acute disease in the chest. Minimal pulmonary fibrosis. Mild bronchiectasis. Moderate emphysematous disease. Findings suggestive of fecal impaction, progressed. Two 6 mm gallstones, stable.
Mild diffuse bladder wall thickening which can be seen in cystitis and bladder outlet obstruction. Please see full dictation for additional detail.
--- NOTE | 2025-04-30 13:41 | PHA.VAN.FU ---
Vancomycin Assessment / Plan
- Assessment
Renal Function: Stable
WBC's are: Trending Down
In the past 24 hrs, patient has been: Afebrile
- Dosing Plan
Continue: Vancomycin 1250 mg IV q24h
- Monitoring Plan
Peak Level: 05/01 at 9:30 AM
Trough Level: 05/02 at 5:30 AM
- Follow Up
Pharmacy will continue to follow.
Vancomycin Follow UP
- -
Patient Age: 59
Patient Sex: Male
Vancomycin Day #: 3
Indication: Bacteremia
Requesting Provider: Kobe
Pertinent Antimicrobial Allergies:
Levaquin - seizures
Height / Weight:
Height 5 ft 5 in
Actual Weight 74.8 kg
Pertinent Past Medical History: Decubitus ulcers (polymicrobial growth including resistant organisms)
- Vital Signs / Lab Results
Temp Pulse Resp BP Pulse Ox
99 F 88 22 135/90 97
04/30/25 12:06 04/30/25 12:00 04/30/25 12:00 04/30/25 12:00 04/30/25 12:00
Lab Results - Hematology
04/27/25 04/28/25 04/29/25
16:18 03:58 03:33
WBC 12.7 H 17.1 H 12.0 H
04/30/25
03:53
WBC 7.5
Lab Results - Chemistry
04/27/25 04/28/25 04/29/25
16:18 03:58 03:33
BUN 32 H 28 H 24 H
Creatinine 1.2 1.1 1.1
Estimated Creat Clear 61 61
Albumin 3.2 L 2.8 L 2.4 L
04/30/25
03:53
BUN 23 H
Creatinine 1.0
Estimated Creat Clear 67
Albumin 2.1 L
04/27/25 04/27/25 04/27/25
16:18 16:18 20:15
Lactic Acid 1.3 Cancelled Cancelled
Microbiology Results
04/27/25 20:01 Wound Culture - Preliminary
Buttock Gram negative bacilli
Streptococcus species
Diptheroids
Additional testing on request
Gram Stain - Preliminary
04/27/25 16:53 Blood Culture - Preliminary
Blood/Venous Staph aureus MRSA
Diptheroids
Gram Stain - Preliminary
04/27/25 16:18 Blood Culture - Preliminary
Blood/Venous Diptheroids
Gram Stain - Preliminary
04/28/25 09:52 Respiratory Culture - Preliminary
Endotracheal Gram negative bacilli
Additional testing on request
Gram Stain - Preliminary
04/27/25 16:18 Blood Culture - Preliminary
Blood/Venous No Growth in 48 hours- Final report to follow
04/27/25 18:11 Urine Culture - Final
Urine NO GROWTH
--- NOTE | 2025-04-30 13:43 | PN.CDI ---
CDI
- -
CDI:
Physician Documentation Request
Admit Date: 04/27/25 20:15
Dear Doctor Kobe,
Patient admitted with severe sepsis.
04/29 PN, 'Seizures post anoxic brain injury...Chronic bedbound status with contractures/quadriplegia.... unable to follow commands, severely contracted...cont G tube feeds with Jevity'
04/29 PCN, 'Received patient A&Ox0....All extremities contracted...'
Please provide in your note the diagnosis associated with the patient's functional status:
Functional quadriplegia (complete immobility due to severe physial disability or frailty)
Weakness only
Other
Quadriparesis/Quadriplegia
Type
Incomplete
Unable to determine
Level
C1-C4
C5-C7
Unable to determine
Etiology
CVA, cerebral palsy,
injury, etc.
Functional quadriplegia
complete immobility due
severe physical
disability or frailty
Use of terms such as suspected, likely, concern for, or probable (associated with a specific diagnosis that is being evaluated, monitored, or treated as if it exists) are acceptable and can be coded in the inpatient setting, when documented at the
time of discharge.
Thank you,
Karyna ISAAC,RN,CCDS
CDI Specialist
Available via tiger text
Please use your independent medical judgment in providing your response.
--- NOTE | 2025-04-30 14:11 | CM ---
Bacteremia, sepsis, IV/Vanco. Discharge POC: Home. is primary caregiver. [facility] health RN and [employer] 2x/week for bathing
[2025-04-30] MEDS: DEPAKENE 875 MG TUBE ×2 (16:13→22:44)
--- NOTE | 2025-04-30 17:07 | PTCARENOTE ---
Pt assessed.No change in assessment noted.
--- NOTE | 2025-04-30 17:37 | PTCARENOTE ---
Report given to 2 [facility] RN.Pt's Karyna notified that pt is being transferred to [id number].
[2025-04-30] MEDS: LOVENOX 40 MG SC (17:44)
[2025-04-30] MEDS: SODIUM CHLORIDE 3% FOR INHALATION 1 VIAL INH (20:21)
[2025-04-30] MEDS: ROBITUSSIN 1200 MG TUBE (20:53)
[2025-04-30] MEDS: KEPPRA 1000 MG TUBE (20:53)
[2025-04-30] MEDS: LIPITOR 40 MG TUBE (22:43)
[2025-05-01] MEDS: SYNTHROID 75 MCG TUBE (05:18)
[2025-05-01] MEDS: VANCOCIN 275 MG IV (06:02)
[2025-05-01] MEDS: FLUSH (NSS) 2 FLUSH IV ×4 (06:03→21:35)
[2025-05-01 06:57] LABS: Hematocrit 30.1 % (39.0-52.0); Hemoglobin 9.4 g/dL (13.0-18.0); Mean Corp Hgb Conc. 31.2 g/dL (33.0-37.0); Mean Corpuscular Volume 106.7 fL (80.0-94.0); Nucleated Red Blood Cells % 0 % (-); Platelet Count 148 10^3/uL (130-400); Red Cell Dist. Width 13.6 % (11.5-14.5)
[2025-05-01 07:00] VITALS: BP 144/93
[2025-05-01 07:21] LABS: ALT (SGPT) 11 U/L (0-50); AST (SGOT) 17 U/L (17-59); Albumin 2.4 g/dl (3.5-5.0); Alkaline Phosphatase 80 U/L (38-126); Blood Urea Nitrogen 25 mg/dl (9-20); Calcium 8.5 mg/dl (8.4-10.2); Carbon Dioxide 28 mmol/L (22-30); Chloride 112 mmol/L (98-107); Estimated Creatinine Clearance 67 ml/min; Glucose 102 mg/dl (70-99); Potassium 3.5 mmol/L (3.5-5.1); Sodium 142 mmol/L (135-145); Total Protein 5.4 g/dl (6.3-8.2); eGFR > 60.00
--- NOTE | 2025-05-01 07:38 | W.PN.HOSP.TC ---
Today's Communication/Plan
-
Continue antibiotics
Follow Cultures
Assessment / Plan
Assessment / Plan
Assessment
This is a 59 y/o male with pmhx of quadriplegia, paroxysmal afib, decubitus ulcers, seizure disorder s/p anoxic brain injury taking Keppra (750mg BID) and Depakote (875mg TID) who presented to the ED with increased seizure activity in the setting of
sepsis.
Plan
Sepsis
Unstageable Sacral Decubitus Ulcer
MRSA Bacteremia
Stage I Bilateral Buttocks and Lower Back Decubitus Ulcer
Stage IV mid lower back pressure ulcer
Stage IV right hip pressure ulcer
-On admission patient was hypotensive at 89/56, febrile at 101.4, HR 105.
-S/p 5L of NSS in the ED, and continued on IV NS at 100cc/hr. He is no longer hypotensive, but unable to definitively call this shock
-Source of infection is most likely secondary to Decubitus ulcers
-He has a history of ulcers positive for MSSA, Pseudomonas, Strep. Progenies, Proteus Mirabilis, Enterococcus faecalis in 2023, and Gayle auris in 2024
-2/4 blood cultures have returned positive with one positive for MRSA and one for gram positive bacilli. Pending repeat blood cultures.
-Infectious Disease is following. Will appreciate their insight into this case.
-Continue on IV Vancomycin. Will coordinate care with infectious disease to determine overall length of time patient will require antibiotics for. Patient may require home infusion series upon discharge, plan to coordinate care with case management
if so.
-Plan to contact again today (Last spoken to via phone on 04/30/2025) to provide updates
-Continue wound care for his sacral wounds
-Continue to follow cultures
-Will monitor
Acute Exacerbation of Seizures, Resolved
Seizures s/p Anoxic Brain Injury
Functional Quadriplegia
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
-CT Head 08/2021 showed multiple large areas of cerebral infarction bilaterally with areas of hemorrhagic transformation with diffuse cerebral edema, mild left to right midline shift.
-Increased number of seizures despite compliance with medications over the last 5 days likely secondary to sepsis. Was given Ativan 0.5mg at 8PM on 04/26 prior to reporting to the ED. A single dose of acyclovir 20mg/kg was also given
-Outpatient, patient follows with Neurology at [facility] with Dr. Melissa Frost
-Continue Depakote 875mg TID, now via tube feed
-Continue Keppra 1000mg BID, now via tube feed
-Will monitor
History of Current Trach Collar with 5L Oxygen
-Copious trash secretions noted on arrival, and again today
-Sputum culture no growth to date
-Continue guaifenesin 600mg BID
-Continue mucomyst nebulizer
Oral Thrush
-Noted upon arrival
-S/p one time dose of Diflucan 100mg
Anemia of Chronic Disease
Iron Deficiency Anemia
-Continue to monitor H&H
Paroxysmal Atrial Fibrillation
-HOLD metoprolol due to hypotension
Hypothyroidism
-TSH high at 41
-Continue levothyroxine 75 mcg daily
-Will need repeat testing in 2-4 weeks for medication adjustment
History of Shock Liver/Multisystem Organ Dysfunction/Renal Failure in the setting of COVID19 infection 08/2021
History of PE in 2023 (Per )
Dispo: Will contact again today regarding ongoing care
Anticipated Discharge: > 48 hours
Subjective/Interval History
-
Date of Service: May 01, 2025
Patient continues to be nonverbal at baseline. He moves his eyes towards the sound of my voice again.
Objective Data
-
Labs:
Laboratory Results
05/01/25
06:44
WBC 8.3
Hgb 9.4 L
Hct 30.1 L
Plt Count 148 D
Sodium 142
Potassium 3.5
Chloride 112 H
Carbon Dioxide 28
BUN 25 H
Creatinine 1.0
Glucose 102 H
Calcium 8.5
Total Bilirubin 0.1 L
AST 17
ALT 11
Alkaline Phosphatase 80
Vital Signs:
Vital Signs
Temp Pulse Resp BP Pulse Ox
98.1 F 104 20 138/84 95
04/30/25 23:16 04/30/25 23:16 04/30/25 23:16 04/30/25 23:16 04/30/25 23:16
I&O
04/30/25 05/01/25 05/02/25
06:59 06:59 06:59
Intake Total 3580 / 3580 2280 / 2280
Balance 3580 / 3580 2280 / 2280
Review of Systems
-
Unable to obtain full review of systems at this time due to: Patient Non-verbal
Physical Exam
-
General: Appears Chronically Ill
HEENT: Normocephalic, Atraumatic and Tracheostomy Collar (5L, less secretions noted compared to yesterday)
Cardiac: Regular Rhythm and S1/S2
GI: Soft and Other (GJ Feeding tube in place)
Musculoskeletal: Other (All limbs held in contrature)
Skin: Warm, Dry and Ulcers (Covered by medical bandages)
Neuro: Negative Alert or Oriented
[2025-05-01] MEDS: MUCOMYST 20% 2 ML INH ×2 (08:22→19:14)
[2025-05-01] MEDS: PULMICORT 0.5 MG INH ×2 (08:23→19:15)
[2025-05-01] MEDS: VENTOLIN NEBULES 2.5 MG INH ×2 (08:24→19:15)
[2025-05-01] MEDS: SODIUM CHLORIDE 3% FOR INHALATION 1 VIAL INH ×2 (08:24→19:15)
--- NOTE | 2025-05-01 09:16 | W.PN.ID1 ---
Date of Service
Date of Service: May 01, 2025
Today's Communication
Continue Vancomycin.
Assessment / Plan
Uncomplicated MRSA bacteremia 1 of 3 sets
- Source unclear - ?Sacrum
Diphtheroid bacteremia 2 of 3 sets
-Suspect contaminants
Staph epi bacteremia
-Contaminat
Leukocytosis
- resolved
Fever - resolved
Seizures
Paroxysmal Atrial Fibrillation
Anoxic Brain Injury
Multiple Stage IV Pressure Injuries
Severe contractures
Anemia of Chronic Disease and Iron Deficiency Anemia
Seizure Disorder
Esophagitis / Esophageal Ring
Recommendations:
Ucx neg.
CXR and CT chest neg parenchymal opacities.
Repeat blood cx's neg to date
TTE no gross vege
Continue IV vancomycin (d4)
Chief Complaint
-: Bacteremia
Subjective / Review of Systems
Nonverbal
Vital Signs / Physical Exam
Vital Signs
Vital Signs
Temp Pulse Resp BP Pulse Ox
98.1 F 87 20 138/84 97
04/30/25 23:16 05/01/25 08:33 05/01/25 08:33 04/30/25 23:16 05/01/25 08:33
Physical Exam
Constitutional: Comfortable
Cardiovascular: Regular Rate and S1/S2
Pulmonary: Rhonchi and Other (Trach collar in place)
Gastrointestinal: Soft, Non Tender and Non Distended
Genito-Urinary: Prince and Clear Urine
Musculoskeletal: Other (contracted extremities)
Wound: Other
Objective Data
Lab Data
Lab Results
05/01/25 06:44
05/01/25 06:44
PT 16.2 Sec (11.4-14.6) H 04/28/25 03:58
INR 1.27 04/28/25 03:58
APTT 25.7 Sec (23.4-35.0) 04/28/25 03:58
Estimated Creat Clear 67 ml/min 05/01/25 06:44
Lactic Acid Cancelled 04/27/25 20:15
Total Bilirubin 0.1 mg/dl (0.2-1.3) L 05/01/25 06:44
AST 17 U/L (17-59) 05/01/25 06:44
ALT 11 U/L (0-50) 05/01/25 06:44
Alkaline Phosphatase 80 U/L (38-126) 05/01/25 06:44
Most recent labs reviewed.
Micro Results:
04/27/25 16:53 Blood Culture - Preliminary
Blood/Venous Staphylococcus epidermidis
Diptheroids
Gram Stain - Preliminary
05/01/25 06:43 Blood Culture - Pending
Blood/Venous
05/01/25 05:59 Blood Culture - Pending
Blood/Venous
04/29/25 18:31 Blood Culture - Preliminary
Blood/Venous No Growth in 24 hours- Final report to follow
04/27/25 16:18 Blood Culture - Preliminary
Blood/Venous No Growth in 72 hours- Final report to follow
04/27/25 20:01 Wound Culture - Preliminary
Buttock Gram negative bacilli
Streptococcus species
Diptheroids
Additional testing on request
Gram Stain - Preliminary
04/27/25 16:18 Blood Culture - Preliminary
Blood/Venous Diptheroids
Gram Stain - Preliminary
04/28/25 09:52 Respiratory Culture - Preliminary
Endotracheal Gram negative bacilli
Additional testing on request
Gram Stain - Preliminary
04/27/25 18:11 Urine Culture - Final
Urine NO GROWTH
04/27/25 16:53 Influenza Types A & B (MAYELA) - Final
Nasal Swab Negative for Influenza A & B, NAAT
Negative results must be combined with clinical observations
and patient history.
Nucleic Acid Amplification test (NAAT)performed on the
[employer] platform.
Imaging:
04/27/2025 CT chest/abdomen/pelvis with IV contrast: no acute disease in the chest. Minimal pulmonary fibrosis. Mild bronchiectasis. Moderate emphysematous disease. Findings suggestive of fecal impaction, progressed. Two 6 mm gallstones, stable.
Mild diffuse bladder wall thickening which can be seen in cystitis and bladder outlet obstruction. Please see full dictation for additional detail.
--- NOTE | 2025-05-01 09:49 | PHA.VAN.FU ---
Vancomycin Assessment / Plan
- Assessment
Renal Function: Stable
WBC's are: WNL
In the past 24 hrs, patient has been: Afebrile
- Dosing Plan
Continue: VANCO 1250MG DAILY
- Monitoring Plan
Peak Level: 05/01 @0915 - 29.5
Trough Level: 05/02 @0530
- Follow Up
Pharmacy will continue to follow.
Vancomycin Follow UP
- -
Patient Age: 59
Patient Sex: Male
Vancomycin Day #: 4
Indication: Bacteremia
Requesting Provider: Kobe
Pertinent Antimicrobial Allergies:
Levaquin - seizures
Height / Weight:
Height 5 ft 5 in
Actual Weight 74.8 kg
Pertinent Past Medical History: Decubitus ulcers (polymicrobial growth including resistant organisms)
- Vital Signs / Lab Results
Temp Pulse Resp BP Pulse Ox
98.1 F 87 20 138/84 97
04/30/25 23:16 05/01/25 08:33 05/01/25 08:33 04/30/25 23:16 05/01/25 08:33
Lab Results - Hematology
04/29/25 04/30/25 05/01/25
03:33 03:53 06:44
WBC 12.0 H 7.5 8.3
Lab Results - Chemistry
04/29/25 04/30/25 05/01/25
03:33 03:53 06:44
BUN 24 H 23 H 25 H
Creatinine 1.1 1.0 1.0
Estimated Creat Clear 61 67 67
Albumin 2.4 L 2.1 L 2.4 L
Microbiology Results
04/27/25 16:53 Blood Culture - Preliminary
Blood/Venous Staphylococcus epidermidis
Diptheroids
Gram Stain - Preliminary
04/29/25 18:31 Blood Culture - Preliminary
Blood/Venous No Growth in 24 hours- Final report to follow
04/27/25 16:18 Blood Culture - Preliminary
Blood/Venous No Growth in 72 hours- Final report to follow
04/27/25 20:01 Wound Culture - Preliminary
Buttock Gram negative bacilli
Streptococcus species
Diptheroids
Additional testing on request
Gram Stain - Preliminary
04/27/25 16:18 Blood Culture - Preliminary
Blood/Venous Diptheroids
Gram Stain - Preliminary
04/28/25 09:52 Respiratory Culture - Preliminary
Endotracheal Gram negative bacilli
Additional testing on request
Gram Stain - Preliminary
Therapeutic Drug Monitoring
Vancomycin Peak 29.5 ug/ml (18-) H 05/01/25 09:15
[2025-05-01] MEDS: ROBITUSSIN TUBE ×3 (10:16→19:28)
[2025-05-01] MEDS: FERROUS SULFATE ORAL LIQUID TUBE ×3 (10:17→19:28)
[2025-05-01] MEDS: KEPPRA TUBE ×2 (10:17→11:13)
[2025-05-01] MEDS: DEPAKENE TUBE ×2 (10:17→11:12)
[2025-05-01] MEDS: DESENEX/MITRAZOL/ZEASORB 1 APPLIC TOPICAL (10:29)
[2025-05-01] MEDS: DAKIN'S SOLUTION 0.125% 1/4 STRENGTH 473 ML TOPICAL (10:30)
[2025-05-01] MEDS: KEPPRA 1000 MG IV ×2 (13:49→19:27)
[2025-05-01] MEDS: DEPACON 58.75 MG IV ×2 (14:00→21:35)
--- NOTE | 2025-05-01 14:38 | W.PN.UPDATE ---
Update Note
Progress Note Update
I received notification from Ruben's nurse this morning that his J tube was clogged, and while she was attempting to flush it the tube had developed a hole and popped. She states the tube had crusted feed along the inside contributing to the
clogging.
I contacted patient's , Karyna, to discuss his case again. I had most recently spoken to her the day prior. She states that this is not the first time his GJ tube has needed to be replaced, and that they have had this happen multiple times since
it was originally placed 4. Most recently it was changed here in 03/2025, slightly over one month ago. She states she keeps the tube clean at home. We had a continued goals of care discussion, during which she expressed remorse at bringing Ruben
to the hospital as she wishes he had been allowed to remain at home rather than undergo all of these procedures. She reports she has been looking into outpatient hospice. At the same time, she feels caught off guard by all that has happened
including his MRSA infection and now the GJ tube hole. She is also very concerned about how he developed a MRSA infection, as he has not previously had this infection to her knowledge. She states at home his room is 'mostly sterile' with very few
visitors. After our conversation she decided that she would, at this time, like to continue with goals of scientologist to Ruben's baseline, though notes she is not sure she is capable of handling a prolonged outpatient IV antibiotic regimen if he
requires this. She plans on visiting her later today in the hospital, and would like to continue goals of care discussion at that time and tomorrow.
As her goals at this time remain restorative, consulted IR for GJ tube replacement.
Total time spent discussing Ruben's case with his : 45 minutes.
[2025-05-01 15:00] VITALS: BP 141/89
--- NOTE | 2025-05-01 16:50 | W.PN.PUL3 ---
Today's Communication / Plan
-
Sport bed
Continue mucolytics
Continue nebulized albuterol, budesonide and mucomyst
Nebulized 3% NS; mucinex 1200mg BID
Aspiration precautions
Trach collar with goal SpO2 >90-94%
If patient develops worsening oxygen requirements then may benefit from bronchoscopy for cleanout + cultures
Abx per ID; follow up infectious workup (MRSA on one blood Cx from 04/27 --> follow up set of surveillance BCx); TTE negative for vegetation, may need DANIE
IR consult to replace G/J tube
Pulmonary service will continue to follow along
Assessment
-
Impression:
#Febrile illness - due to MRSE bacteremia
#Fecal impaction in rectum
#Sacral decubitus ulcer (chronic)
#Leukocytosis
#Chronic anemia
#Pulmonary fibrosis
#History of eosinophilia (absolute eosinophil count 1200 on 03/16/2025; was as high as 1500 on 06/18/2024)
#Right upper lobe bleb measuring 4.9 cm with bilateral bronchiectasis
#Acute flare of bronchiectasis with increased secretions
#Hx of seizures following hemorrhagic stroke (2021)
#History of COVID-19 pneumonitis complicated by cardiac arrest (2021)
#Paroxysmal A-fib
Plan:
- Pulmonary toilet is flowers as pt has thick, brody colored secretions and nurses are suctioning him almost every 2-3 hours
- Need to keep up with airway suctioning otherwise he will be at high risk of plugging
- Continue Mucinex, mucomyst 20% BID and nebulized albuterol to help him expectorate; I added 3% to assist even further with suctioning
- prn nebulized bronchodilators - not currently bronchospastic
- Given his elevated eosinophils in setting of bronchiectasis and large amounts of mucous, I started nebulized steroids with pulmicort; on recent CT Chest on 04/27/2025, no evidence of bacterial pneumonia
- Maintain SpO2 >90-94% with trach collar at 28%
- s/p IVF; unable to use tube feeds now that his G-J tube has a hole in the tubing --> IR consulted by primary team for replacement; this has happened multiple times in the past
- He has a Hx of hypercapnia --> blood gas checked on AM of 04/29 and no significant hypercapnia seen with pH 7.36, pCO2 48
- Aspiration precautions keeping HOB >30-45�
- Neurology consulted and recs appreciated
- CT head performed on 04/28 showed no acute intracranial hemorrhage with multiple areas of calcification within both hemispheres likely from prior hemorrhagic CVAs
- Defer AEDs to Neuro - currently on valproate + Keppra
- 2 blood cultures from 04/27 are positive --> both are growing diphtheroids and 1 blood culture is growing MRSA; Manju's blood cultures collected on 04/29 which shows NGTD
- TTE performed on 04/30 does not show any evidence of vegetation
- Depending if surveillance blood cultures are positive, he may need a DANIE to further evaluate for endocarditis
- Obtain set of daily surveillance blood Cx, as requested by ID
- Trend WBC and temperature curve
- He was malodorous when he was first brought in and continues to have a generalized foul odor coming from body
- Wound care to sacrum and other chronic wounds- may need general surgery consult depending on wound care recs
- Follow up wound Cx from buttock (GNR x 3 morphologies, Streptococcus spp and diphtheroids x 2 morphologies)
- Follow up urine Cx (NGTD)
- Secretions sent for culture from tracheal stoma (growing 3 different morphologies of moderate GNR --> likely colonization; follow-up species)
- Defer ABx to primary team + ID --> had been on Vanco/Zosyn however Zosyn has now been discontinued
- Maintain MAP>65
- Replete electrolytes with K>4, Mg>2
- Maintain euglycemia with goal BG 140-180; last HbA1c 5.1 on 07/11/2024
- Trend H/H and transfuse if needed to keep Hb>7g/dL; keep plt>20k, unless there is concern for bleeding then keep plt>50k
- DVT ppx: LMWH
Code status: DNR/DNI
Given that he is on a trach collar with pulmonary fibrosis and multifocal areas of bronchiectasis, Pulmonary service will continue to follow along.
Data:
CT Chest/Abd/Pelvis with IV contrast 04/27/2025:
No acute disease of the chest.
Minimal pulmonary fibrosis. New., Mild bronchiectasis. New. Moderate emphysematous disease. Stable
Findings suggestive of fecal impaction. Progressed
Two 6 mm gallstones. Stable
Mild diffuse bladder wall thickening. This can be seen with cystitis and bladder outlet obstruction. New
Total time spent today was 41 minutes for this encounter. Time includes reviewing laboratory test/imaging results, reviewing pertinent medical records, obtaining and reviewing medical history, performing an appropriate exam, ordering medications,
tests and procedures. Time also includes documentation of this encounter, coordinating patient care and communicating with other healthcare professionals. Total time does not include separately billed tests performed on this date of service.
Subjective Data
-
Date of Service:
Date of Service: May 01, 2025
Chief Complaint: Pulmonary Follow Up
Subjective:
Patient seen and evaluated today at bedside(Late note entry). Feeding tube popped today when nursing was using it. He remains on trach collar at 28% FiO2 and secretions remain thick and brody.
Review of Systems
General: Unobtainable - Pat Unresp
Objective Data
Data Reviewed
Vital Signs / I&O / Oxygen:
Vital Signs
Temp Pulse Resp BP Pulse Ox
98.1 F 87 20 138/84 97
04/30/25 23:16 05/01/25 08:33 05/01/25 08:33 04/30/25 23:16 05/01/25 08:33
Intake and Output
04/30/25 05/01/25 05/02/25
06:59 06:59 06:59
Intake Total 3580 / 3580 0 / 0
Balance 3580 / 3580 2279 / 0
SaO2 97
Nasal Cannula flow liters per 5
minute
Physical Exam
General: Respiratory Distress (negative), Comfortable and Chills (negative)
HEENT: Normocephalic, Anicteric and Other (tracheostomy)
Cardiovascular: S1-S2 and Peripheral Edema (Trace LE edema bilaterally)
Respiratory: Wheeze (negative), Crackles (negative), Rhonchi (Bilateral), Non-Labored Respirations and Stridor (negative)
GI: Soft, Non Distended, Non Tender, Normal Bowel Sounds and Feeding Tube (hole seen in tubing)
Neurology: Tremors (negative) and Non Verbal
Skin: Warm, Dry, Cyanosis (negative) and Other (contracted limbs)
Labs/Micro/Reports
Lab Data
05/01/25 06:44
05/01/25 06:44
Microbiology
04/27/25 16:53 Blood/Venous Blood Culture - Preliminary
Staphylococcus epidermidis
Diptheroids
04/27/25 16:53 Blood/Venous Gram Stain - Preliminary
04/29/25 18:31 Blood/Venous Blood Culture - Preliminary
No Growth in 24 hours- Final report to follow
04/27/25 16:18 Blood/Venous Blood Culture - Preliminary
No Growth in 72 hours- Final report to follow
04/27/25 20:01 Buttock Wound Culture - Preliminary
Gram negative bacilli
Streptococcus species
Diptheroids
Additional testing on request
04/27/25 20:01 Buttock Gram Stain - Preliminary
04/27/25 16:18 Blood/Venous Blood Culture - Preliminary
Diptheroids
04/27/25 16:18 Blood/Venous Gram Stain - Preliminary
04/28/25 09:52 Endotracheal Respiratory Culture - Preliminary
Gram negative bacilli
Additional testing on request
04/28/25 09:52 Endotracheal Gram Stain - Preliminary
04/27/25 18:11 Urine Urine Culture - Final
NO GROWTH
[2025-05-01] MEDS: LOVENOX 40 MG SC (17:38)
[2025-05-01] MEDS: FLUSH (NSS) 3 FLUSH IV (19:27)
[2025-05-01] MEDS: D5/0.9% SODIUM CHLORIDE 1000 IV (19:27)
[2025-05-01] MEDS: LIPITOR TUBE (21:33)
--- NOTE | 2025-05-01 23:30 | PTCARENOTE ---
Patient's spouse Karyna was in to see patient for a brief visit meredith.
[2025-05-01 23:36] VITALS: BP 141/91
[2025-05-02] MEDS: FLUSH (NSS) 2 FLUSH IV (05:29)
[2025-05-02] MEDS: DEPACON 58.75 MG IV ×3 (05:29→21:56)
[2025-05-02] MEDS: SYNTHROID TUBE (05:29)
[2025-05-02 05:52] LABS: Hematocrit 28.7 % (39.0-52.0); Hemoglobin 9.1 g/dL (13.0-18.0); Mean Corp Hgb Conc. 31.7 g/dL (33.0-37.0); Mean Corpuscular Volume 106.3 fL (80.0-94.0); Nucleated Red Blood Cells % 0 % (-); Platelet Count 138 10^3/uL (130-400); Red Cell Dist. Width 13.5 % (11.5-14.5)
[2025-05-02] MEDS: VANCOCIN 275 MG IV (06:20)
[2025-05-02 06:23] LABS: ALT (SGPT) 10 U/L (0-50); AST (SGOT) 18 U/L (17-59); Albumin 2.3 g/dl (3.5-5.0); Alkaline Phosphatase 59 U/L (38-126); Blood Urea Nitrogen 20 mg/dl (9-20); Calcium 8.9 mg/dl (8.4-10.2); Carbon Dioxide 27 mmol/L (22-30); Chloride 115 mmol/L (98-107); Estimated Creatinine Clearance 67 ml/min; Glucose 87 mg/dl (70-99); Potassium 3.6 mmol/L (3.5-5.1); Sodium 143 mmol/L (135-145); Total Protein 5.4 g/dl (6.3-8.2); eGFR > 60.00
[2025-05-02 07:00] VITALS: BP 104/63
--- NOTE | 2025-05-02 07:05 | W.PN.HOSP.TC ---
Today's Communication/Plan
-
STOP IV Vancomycin
Continue IV fluids
Pending replacement of feeding tube
Assessment / Plan
Assessment / Plan
Assessment
This is a 59 y/o male with pmhx of quadriplegia, paroxysmal afib, decubitus ulcers, seizure disorder s/p anoxic brain injury taking Keppra (750mg BID) and Depakote (875mg TID) who presented to the ED with increased seizure activity in the setting of
sepsis.
Plan
Sepsis
Unstageable Sacral Decubitus Ulcer
Stage I Bilateral Buttocks and Lower Back Decubitus Ulcer
Stage IV mid lower back pressure ulcer
Stage IV right hip pressure ulcer
-On admission patient was hypotensive at 89/56, febrile at 101.4, HR 105.
-S/p 5L of NSS in the ED, and continued on IV NS at 100cc/hr. He is no longer hypotensive, but unable to definitively call this shock
-Source of infection is most likely secondary to Decubitus ulcers
-He has a history of ulcers positive for MSSA, Pseudomonas, Strep. Progenies, Proteus Mirabilis, Enterococcus faecalis in 2023, and Gayle auris in 2024
-All previously positive blood cultures determined to be due to contaminant from diptheroids and staph epi. D/c'ed Vancomycin today, no role for further antibiotics.
-Plan to contact again today (Last spoken to via phone on 05/01/2025) to provide updates
-Echocardiogram showed no evidence of valvular vegetations
-Continue wound care for his sacral wounds
-Continue to follow cultures
-Will monitor
Feeding tube malfunction:
-Yesterday nurse noted feeding tube ruptured during attempted flush.
-Goals of care continue to be restorative
-IR consulted yesterday for replacement.
-Continue IV fluid support while feeding tube remains unusable
Acute Exacerbation of Seizures, Resolved
Seizures s/p Anoxic Brain Injury
Functional Quadriplegia
-S/p anoxic brain injury/hemorrhagic CVA and cardiac arrest in 08/2021 at [facility]
-CT Head 08/2021 showed multiple large areas of cerebral infarction bilaterally with areas of hemorrhagic transformation with diffuse cerebral edema, mild left to right midline shift.
-Increased number of seizures despite compliance with medications over the last 5 days likely secondary to sepsis. Was given Ativan 0.5mg at 8PM on 04/26 prior to reporting to the ED. A single dose of acyclovir 20mg/kg was also given
-Outpatient, patient follows with Neurology at [facility] with Dr. Melissa Frost
-Continue Depakote 875mg TID, now via IV due to feeding tube malfunction
-Continue Keppra 1000mg BID, now via IV due to feeding tube malfunction
-Will monitor
History of Current Trach Collar with 5L Oxygen
-Copious trash secretions noted on arrival, and again today
-Sputum culture no growth to date
-Continue guaifenesin 600mg BID, though currently being held due to feeding tube malfunction
-Continue mucomyst nebulizer
Oral Thrush
-Noted upon arrival
-S/p one time dose of Diflucan 100mg
Anemia of Chronic Disease
Iron Deficiency Anemia
-Continue to monitor H&H
Paroxysmal Atrial Fibrillation
-HOLD metoprolol due to hypotension
Hypothyroidism
-TSH high at 41
-Continue levothyroxine 75 mcg daily, though currently being held due to feeding tube malfunction
-Will need repeat testing in 2-4 weeks for medication adjustment
History of Shock Liver/Multisystem Organ Dysfunction/Renal Failure in the setting of COVID19 infection 08/2021
History of PE in 2023 (Per )
Dispo: Will contact again today regarding ongoing care. Plan for d/c to home.
Anticipated Discharge: 24 - 48 hours
Subjective/Interval History
-
Date of Service: May 02, 2025
Patient continues to be nonverbal at baseline. By nursing report, no overnight events. His did come to visit around 11:30PM last night.
Objective Data
-
Labs:
Laboratory Results
05/02/25
05:40
WBC 6.9
Hgb 9.1 L
Hct 28.7 L
Plt Count 138
Sodium 143
Potassium 3.6
Chloride 115 H
Carbon Dioxide 27
BUN 20
Creatinine 1.0
Glucose 87
Calcium 8.9
Total Bilirubin 0.2
AST 18
ALT 10
Alkaline Phosphatase 59
Vital Signs:
Vital Signs
Temp Pulse Resp BP Pulse Ox
98.5 F 90 19 141/91 95
05/01/25 23:36 05/01/25 23:36 05/01/25 23:36 05/01/25 23:36 05/01/25 23:36
I&O
05/01/25 05/02/25 05/03/25
06:59 06:59 06:59
Intake Total 2280 / 2280 905 / 905
Balance 2280 / 2280 905 / 905
Review of Systems
-
Unable to obtain full review of systems at this time due to: Patient Non-verbal
Physical Exam
-
General: Comfortable and Appears Chronically Ill
HEENT: Normocephalic, Atraumatic and Tracheostomy Collar (5L)
Cardiac: Regular Rhythm and S1/S2
GI: Soft and Other (There is an approximately 1 inch long hole in the GJ tube several inches away from the insertion site)
Musculoskeletal: Other (All limbs held in contracture)
Skin: Warm, Dry and Rash (Pinkness on patient's neck in the area immediately surrounding the trach collar. This area has previously been covered by thick, creamy secretions from the tracheostomy site but is currently clear.)
Neuro: Negative Awake, Alert or Oriented
[2025-05-02] MEDS: DAKIN'S SOLUTION 0.125% 1/4 STRENGTH 473 ML TOPICAL (08:00)
[2025-05-02] MEDS: FERROUS SULFATE ORAL LIQUID TUBE ×2 (08:00→20:49)
[2025-05-02] MEDS: KEPPRA 1000 MG IV ×2 (08:00→20:50)
[2025-05-02] MEDS: DESENEX/MITRAZOL/ZEASORB 1 APPLIC TOPICAL (08:00)
--- NOTE | 2025-05-02 08:07 | PHA.VAN.FU ---
Vancomycin Assessment / Plan
- Assessment
Renal Function: Stable
WBC's are: WNL
In the past 24 hrs, patient has been: Afebrile
- Assessment - Therapeutic Drug Monitoring
Extrapolated Cmax (mcg/mL): 30.7
Peak level was drawn: Appropriately
Extrapolated Cmin (mcg/mL): 18.4
Trough Drawn: Appropriately
Levels were drawn: At steady state
Calculated AUC (mcg*h/mL): 578
Calculated ke: 0.0226
Calculated half life (H): 30.7
Calculated Vd (L): 95.76
Calculated Vanc CL (ml/min): 36.06
- Dosing Plan
Adjust Regimen to: VANCO 1000MG Q24H
New Regimen Predicts: AUC (467), Peak (25), Trough (14.8)
- Monitoring Plan
No level(s) ordered at this time: CONSIDER LEVELS AT STEADY STATE
- Follow Up
Pharmacy will continue to follow.
Vancomycin Follow UP
- -
Patient Age: 59
Patient Sex: Male
Vancomycin Day #: 5
Indication: Bacteremia
Requesting Provider: Kobe/DR. MANLEY
Pertinent Antimicrobial Allergies:
Levaquin - seizures
Height / Weight:
Height 5 ft 5 in
Actual Weight 74.8 kg
Pertinent Past Medical History: Decubitus ulcers (polymicrobial growth including resistant organisms)
- Vital Signs / Lab Results
Temp Pulse Resp BP Pulse Ox
98.5 F 90 19 141/91 95
05/01/25 23:36 05/01/25 23:36 05/01/25 23:36 05/01/25 23:36 05/01/25 23:36
Lab Results - Hematology
04/30/25 05/01/25 05/02/25
03:53 06:44 05:40
WBC 7.5 8.3 6.9
Lab Results - Chemistry
04/30/25 05/01/25 05/02/25
03:53 06:44 05:40
BUN 23 H 25 H 20
Creatinine 1.0 1.0 1.0
Estimated Creat Clear 67 67 67
Albumin 2.1 L 2.4 L 2.3 L
Microbiology Results
05/01/25 06:43 Blood Culture - Preliminary
Blood/Venous No Growth in 24 hours- Final report to follow
05/01/25 05:59 Blood Culture - Preliminary
Blood/Venous No Growth in 24 hours- Final report to follow
04/29/25 18:31 Blood Culture - Preliminary
Blood/Venous No Growth in 48 hours- Final report to follow
04/27/25 16:18 Blood Culture - Preliminary
Blood/Venous No Growth in 4 days- Final report to follow
04/27/25 16:53 Blood Culture - Preliminary
Blood/Venous Staphylococcus epidermidis
Diptheroids
Gram Stain - Preliminary
04/27/25 20:01 Wound Culture - Preliminary
Buttock Gram negative bacilli
Streptococcus species
Diptheroids
Additional testing on request
Gram Stain - Preliminary
04/27/25 16:18 Blood Culture - Preliminary
Blood/Venous Diptheroids
Gram Stain - Preliminary
04/28/25 09:52 Respiratory Culture - Preliminary
Endotracheal Gram negative bacilli
Additional testing on request
Gram Stain - Preliminary
Therapeutic Drug Monitoring
Vancomycin Peak 29.5 ug/ml (18-26) H 05/01/25 09:15
Random Vancomycin 18.6 ug/ml 05/02/25 05:40
[2025-05-02] MEDS: SODIUM CHLORIDE 3% FOR INHALATION 1 VIAL INH ×2 (08:08→19:30)
[2025-05-02] MEDS: VENTOLIN NEBULES 2.5 MG INH ×2 (08:08→19:29)
[2025-05-02] MEDS: PULMICORT 0.5 MG INH ×2 (08:08→19:29)
[2025-05-02] MEDS: MUCOMYST 20% 2 ML INH ×2 (08:08→19:29)
--- NOTE | 2025-05-02 08:27 | W.PN.ID1 ---
Date of Service
Date of Service: May 02, 2025
Today's Communication
Since NO MRSA bacteremia recovered, can dc further Vancomycin.
OK to dc home.
Assessment / Plan
MRSA (error) revised to Staph epidermidis bacteremia 1 of 3 sets
- Contaminant
Diphtheroid bacteremia 2 of 3 sets
-contaminants
Leukocytosis
- resolved
Fever - resolved
Seizures
Paroxysmal Atrial Fibrillation
Anoxic Brain Injury
Multiple Stage IV Pressure Injuries
Severe contractures
Anemia of Chronic Disease and Iron Deficiency Anemia
Seizure Disorder
Esophagitis / Esophageal Ring
Recommendations:
Ucx neg.
CXR and CT chest neg parenchymal opacities.
Repeat blood cx's neg to date
TTE no gross vege
Since NO MRSA bacteremia recovered, can dc further Vancomycin.
OK to dc home.
Chief Complaint
-: Bacteremia
Vital Signs / Physical Exam
Vital Signs
Vital Signs
Temp Pulse Resp BP Pulse Ox
98.5 F 86 20 141/91 97
05/01/25 23:36 05/02/25 08:16 05/02/25 08:16 05/01/25 23:36 05/02/25 08:16
Physical Exam
Constitutional: Comfortable and Chronically Ill
Eyes: Sclera Anicteric
Cardiovascular: Regular Rate and S1/S2
Pulmonary: Rhonchi and Other (Trach collar in place)
Gastrointestinal: Soft, Non Tender and Non Distended
Genito-Urinary: Prince and Clear Urine
Musculoskeletal: Other (contracted extremities)
Objective Data
Lab Data
Lab Results
05/02/25 05:40
05/02/25 05:40
PT 16.2 Sec (11.4-14.6) H 04/28/25 03:58
INR 1.27 04/28/25 03:58
APTT 25.7 Sec (23.4-35.0) 04/28/25 03:58
Estimated Creat Clear 67 ml/min 05/02/25 05:40
Lactic Acid Cancelled 04/27/25 20:15
Total Bilirubin 0.2 mg/dl (0.2-1.3) 05/02/25 05:40
AST 18 U/L (17-59) 05/02/25 05:40
ALT 10 U/L (0-50) 05/02/25 05:40
Alkaline Phosphatase 59 U/L (38-126) 05/02/25 05:40
Most recent labs reviewed.
Micro Results:
04/27/25 16:53 Blood Culture - Preliminary
Blood/Venous Staphylococcus epidermidis
Diptheroids
Gram Stain - Final
05/01/25 06:43 Blood Culture - Preliminary
Blood/Venous No Growth in 24 hours- Final report to follow
05/01/25 05:59 Blood Culture - Preliminary
Blood/Venous No Growth in 24 hours- Final report to follow
05/02/25 05:40 Blood Culture - Pending
Blood/Venous
04/29/25 18:31 Blood Culture - Preliminary
Blood/Venous No Growth in 48 hours- Final report to follow
04/27/25 16:18 Blood Culture - Preliminary
Blood/Venous No Growth in 4 days- Final report to follow
04/27/25 20:01 Wound Culture - Preliminary
Buttock Gram negative bacilli
Streptococcus species
Diptheroids
Additional testing on request
Gram Stain - Preliminary
04/27/25 16:18 Blood Culture - Preliminary
Blood/Venous Diptheroids
Gram Stain - Preliminary
04/28/25 09:52 Respiratory Culture - Preliminary
Endotracheal Gram negative bacilli
Additional testing on request
Gram Stain - Preliminary
04/27/25 18:11 Urine Culture - Final
Urine NO GROWTH
04/27/25 16:53 Influenza Types A & B (MAYELA) - Final
Nasal Swab Negative for Influenza A & B, NAAT
Negative results must be combined with clinical observations
and patient history.
Nucleic Acid Amplification test (NAAT)performed on the
[employer] platform.
Imaging:
04/27/2025 CT chest/abdomen/pelvis with IV contrast: no acute disease in the chest. Minimal pulmonary fibrosis. Mild bronchiectasis. Moderate emphysematous disease. Findings suggestive of fecal impaction, progressed. Two 6 mm gallstones, stable.
Mild diffuse bladder wall thickening which can be seen in cystitis and bladder outlet obstruction. Please see full dictation for additional detail.
Care Review
Plan reviewed with: Physician
Total Time Spent with Patient (in minutes): Drs. Alvarenga and Kobe
[2025-05-02] MEDS: ROBITUSSIN TUBE ×2 (13:19→20:49)
[2025-05-02] MEDS: D5/0.9% SODIUM CHLORIDE 1000 IV (13:30)
[2025-05-02 15:10] VITALS: BP 140/86
--- NOTE | 2025-05-02 16:22 | W.PN.PUL3 ---
Today's Communication / Plan
-
Sport bed
Continue mucolytics
Continue nebulized albuterol, budesonide and mucomyst
Nebulized 3% NS; mucinex 1200mg BID
Aspiration precautions
Trach collar with goal SpO2 >90-94%
If patient develops worsening oxygen requirements then may benefit from bronchoscopy for cleanout + cultures
Abx per ID - last day today (05/02); follow up infectious workup (MRSE on one blood Cx from 04/27 --> follow up set of surveillance BCx); TTE negative for vegetation, may need DANIE
IR consult to replace G/J tube
Pulmonary service will continue to follow along
Assessment
-
Impression:
#Febrile illness - due to MRSE bacteremia
#Fecal impaction in rectum
#Sacral decubitus ulcer (chronic)
#Leukocytosis
#Chronic anemia
#Pulmonary fibrosis
#History of eosinophilia (absolute eosinophil count 1200 on 03/16/2025; was as high as 1500 on 06/18/2024)
#Right upper lobe bleb measuring 4.9 cm with bilateral bronchiectasis
#Acute flare of bronchiectasis with increased secretions
#Hx of seizures following hemorrhagic stroke (2021)
#History of COVID-19 pneumonitis complicated by cardiac arrest (2021)
#Paroxysmal A-fib
Plan:
- Pulmonary toilet is flowers as pt has thick, brody colored secretions and nurses are suctioning him almost every 2-3 hours
- Need to keep up with airway suctioning otherwise he will be at high risk of plugging
- Continue Mucinex, mucomyst 20% BID and nebulized albuterol to help him expectorate; I added 3% to assist even further with suctioning
- prn nebulized bronchodilators - not currently bronchospastic
- Given his elevated eosinophils in setting of bronchiectasis and large amounts of mucous, I started nebulized steroids with pulmicort; on recent CT Chest on 04/27/2025, no evidence of bacterial pneumonia
- Maintain SpO2 >90-94% with trach collar at 28%
- s/p IVF; unable to use tube feeds now that his G-J tube has a hole in the tubing --> IR consulted by primary team for replacement; this has happened multiple times in the past
- He has a Hx of hypercapnia --> blood gas checked on AM of 04/29 and no significant hypercapnia seen with pH 7.36, pCO2 48
- Aspiration precautions keeping HOB >30-45�
- Neurology consulted and recs appreciated
- CT head performed on 04/28 showed no acute intracranial hemorrhage with multiple areas of calcification within both hemispheres likely from prior hemorrhagic CVAs
- Defer AEDs to Neuro - currently on valproate + Keppra
- 2 blood cultures from 04/27 are positive --> both are growing diphtheroids and 1 blood culture is growing MRSA; surveillance blood cultures collected on 04/29 and 05/01 both show NGTD
- TTE performed on 04/30 does not show any evidence of vegetation
- Depending if surveillance blood cultures are positive, he may need a DANIE to further evaluate for endocarditis
- Obtain set of daily surveillance blood Cx, as requested by ID
- Trend WBC and temperature curve
- He was malodorous when he was first brought in and continues to have a generalized foul odor coming from body
- Wound care to sacrum and other chronic wounds- may need general surgery consult depending on wound care recs
- Follow up wound Cx from buttock (GNR x 3 morphologies, Streptococcus spp and diphtheroids x 2 morphologies)
- Follow up urine Cx (NGTD)
- Secretions sent for culture from tracheal stoma (growing 3 different morphologies of moderate GNR --> likely colonization; follow-up species)
- Defer ABx to primary team + ID --> had been on Vanco/Zosyn however Zosyn has now been discontinued, and last day of IV vanc today (05/02)
- Maintain MAP>65
- Replete electrolytes with K>4, Mg>2
- Maintain euglycemia with goal BG 140-180; last HbA1c 5.1 on 07/11/2024
- Trend H/H and transfuse if needed to keep Hb>7g/dL; keep plt>20k, unless there is concern for bleeding then keep plt>50k
- DVT ppx: LMWH
Code status: DNR/DNI
Poor quality of life; recommend GOC discussion with family
Given that he is on a trach collar with pulmonary fibrosis and multifocal areas of bronchiectasis, Pulmonary service will continue to follow along.
Data:
CT Chest/Abd/Pelvis with IV contrast 04/27/2025:
No acute disease of the chest.
Minimal pulmonary fibrosis. New., Mild bronchiectasis. New. Moderate emphysematous disease. Stable
Findings suggestive of fecal impaction. Progressed
Two 6 mm gallstones. Stable
Mild diffuse bladder wall thickening. This can be seen with cystitis and bladder outlet obstruction. New
Total time spent today was 37 minutes for this encounter. Time includes reviewing laboratory test/imaging results, reviewing pertinent medical records, obtaining and reviewing medical history, performing an appropriate exam, ordering medications,
tests and procedures. Time also includes documentation of this encounter, coordinating patient care and communicating with other healthcare professionals. Total time does not include separately billed tests performed on this date of service.
Subjective Data
-
Date of Service:
Date of Service: May 02, 2025
Chief Complaint: Pulmonary Follow Up
Subjective:
Seen today at bedside (late note entry). No events reported from overnight. Remains on 28% FiO2 via Tc. Afebrile overnight.
Review of Systems
General: Unobtainable - Pat Unresp
Objective Data
Data Reviewed
Vital Signs / I&O / Oxygen:
Vital Signs
Temp Pulse Resp BP Pulse Ox
98.6 F 86 20 104/63 97
05/02/25 07:00 05/02/25 08:16 05/02/25 08:16 05/02/25 07:00 05/02/25 08:16
Intake and Output
05/01/25 05/02/25 05/03/25
06:59 06:59 06:59
Intake Total 2280 / 2280 905 / 905
Balance 2280 / 2280 905 / 905
SaO2 97
Nasal Cannula flow liters per 5
minute
Physical Exam
General: Respiratory Distress (negative), Comfortable and Chills (negative)
HEENT: Normocephalic, Anicteric and Other (tracheostomy)
Cardiovascular: S1-S2 and Peripheral Edema (Trace LE edema bilaterally)
Respiratory: Wheeze (negative), Crackles (negative), Rhonchi (Bilateral), Non-Labored Respirations and Stridor (negative)
GI: Soft, Non Distended, Non Tender, Normal Bowel Sounds and Feeding Tube (hole seen in tubing)
Neurology: Tremors (negative) and Non Verbal
Skin: Warm, Dry, Cyanosis (negative) and Other (contracted limbs)
Labs/Micro/Reports
Lab Data
05/02/25 05:40
05/02/25 05:40
Microbiology
04/27/25 16:53 Blood/Venous Blood Culture - Preliminary
Staphylococcus epidermidis
Diptheroids
04/27/25 16:53 Blood/Venous Gram Stain - Final
05/01/25 06:43 Blood/Venous Blood Culture - Preliminary
No Growth in 24 hours- Final report to follow
05/01/25 05:59 Blood/Venous Blood Culture - Preliminary
No Growth in 24 hours- Final report to follow
04/29/25 18:31 Blood/Venous Blood Culture - Preliminary
No Growth in 48 hours- Final report to follow
04/27/25 16:18 Blood/Venous Blood Culture - Preliminary
No Growth in 4 days- Final report to follow
04/27/25 20:01 Buttock Wound Culture - Preliminary
Gram negative bacilli
Streptococcus species
Diptheroids
Additional testing on request
04/27/25 20:01 Buttock Gram Stain - Preliminary
04/27/25 16:18 Blood/Venous Blood Culture - Preliminary
Diptheroids
04/27/25 16:18 Blood/Venous Gram Stain - Preliminary
04/28/25 09:52 Endotracheal Respiratory Culture - Preliminary
Gram negative bacilli
Additional testing on request
04/28/25 09:52 Endotracheal Gram Stain - Preliminary
[2025-05-02] MEDS: LOVENOX 40 MG SC (18:27)
[2025-05-02] MEDS: LIPITOR TUBE (20:49)
[2025-05-02 23:31] VITALS: BP 174/98
[2025-05-03 02:25] VITALS: BP 154/88
[2025-05-03 04:52] LABS: Hematocrit 28.0 % (39.0-52.0); Hemoglobin 8.8 g/dL (13.0-18.0); Mean Corp Hgb Conc. 31.4 g/dL (33.0-37.0); Mean Corpuscular Volume 106.9 fL (80.0-94.0); Platelet Count 127 10^3/uL (130-400); Red Cell Dist. Width 13.7 % (11.5-14.5)
[2025-05-03 05:20] LABS: Blood Urea Nitrogen 16 mg/dl (9-20); Calcium 9.1 mg/dl (8.4-10.2); Carbon Dioxide 27 mmol/L (22-30); Chloride 116 mmol/L (98-107); Estimated Creatinine Clearance 67 ml/min; Glucose 79 mg/dl (70-99); Potassium 3.6 mmol/L (3.5-5.1); Sodium 145 mmol/L (135-145); eGFR > 60.00
[2025-05-03] MEDS: DEPACON 58.75 MG IV (05:26)
[2025-05-03] MEDS: SYNTHROID TUBE (05:45)
[2025-05-03] MEDS: MUCOMYST 20% 2 ML INH ×2 (07:14→20:04)
[2025-05-03] MEDS: VENTOLIN NEBULES 2.5 MG INH (07:14)
[2025-05-03] MEDS: SODIUM CHLORIDE 3% FOR INHALATION 1 VIAL INH ×2 (07:14→20:04)
[2025-05-03] MEDS: PULMICORT 0.5 MG INH ×2 (07:14→20:04)
[2025-05-03 07:21] VITALS: BMI 27.4
--- NOTE | 2025-05-03 07:22 | W.PN.HOSP.TC ---
Addendum entered and electronically signed by Armando Arroyo MD 05/03/25 22:30:
Attending Addendum-
I saw and evaluated the patient. I reviewed the resident�s note and agree with findings and plan as documented in the resident�s note. Sub: Patient nonverbal. Per nursing retaining urine and excessive secretions. ROS unable to obtain. Exam: Vitals
reviewed in chart GEN-NAD HEENT TC in place no secretions present, heart RRR no MRG, Lungs crackles at bases abd GJ tube in place, soft NT ND pos BS LE +1 B/L LE edema Neuro unable to follow commands, severely contracted
Plan:
#Sepsis
#sacral decub stage 4/stage I bilateral buttocks/healing right mid lower back and right hip stage 4 PI
#POA
#Chronic bedbound status with contractures/functional quadriplegia
- Wound culture-polymicrobial as expected
- cont wound care
- has not required pressors
- Blood cx- 1/3-MRSA->staph epi, 2/3-diphtheroids - all likely contaminants
- abx dc'd
- ID input appreciated
- ECHO 04/30- LVEF WNL, no obvious signs of vegetation
- repeat blood cx-NGTD
- WBC now WNL
#Acute exacerbation of seizures in setting of sepsis
#Seizures post anoxic brain injury/Chronic Tremors to RIGHT ARM
- has reported multiple seizures X5 days Facial twitching eye brows move up increased right side / eye gaze numerous per day
- follows with Dr Melissa conrad neuro [place]
- Continue IV Depakote 875mg tid - home dose
- cont increased Increase Keppra from 750 mg twice daily to 1000 mg twice daily
- appreciate neuro input
# Chronic hypoxemic respiratory failure
- trach collar with 5 L oxygen wean for 02 90-94%
- appreciate pulm input
- sputum culture-colonized
- cont guaifenesin
- cont mucolytics and nebs
- suction machine ordered for patient
#Dysphagia/GJ tube
-NPO
-tube replaced over weekend
# Urinary Retention
- start flomax
- place price eventual SP tube likely
- hisk risk infection with multiple sacral wounds
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
#PE 2023 s/p thrombectomy
#Hypothyroidism- TSH elevated - increased levothyroxine to 75mcg
#Paroxysmal A-fib August 2021
-metoprolol held due to hypotension- restart prior to DC
-not on AC due h/o hem CVA
#Anemia of chronic disease
#Iron deficiency anemia
DVT prophylaxis
Subcu Lovenox
Code- DNR
Dispo-from home with - requesting to be sent home not SNF DC in am, discussions underway regarding
Time spent coordinating care, review of plan of care with resident, personally reviewed records in EMR, med rec, consults, notes, labs, radiology, d/w nursing, pharmacy � 52 mins
Original Note:
Today's Communication/Plan
-
GJ tube replacement today
Following replacement, resume tube medications
Assessment / Plan
Assessment / Plan
Assessment
This is a 59 y/o male with pmhx of quadriplegia, paroxysmal afib, decubitus ulcers, seizure disorder s/p anoxic brain injury taking Keppra (750mg BID) and Depakote (875mg TID) who presented to the ED with increased seizure activity in the setting of
sepsis.
Plan
Sepsis
Unstageable Sacral Decubitus Ulcer
Stage I Bilateral Buttocks and Lower Back Decubitus Ulcer
Stage IV mid lower back pressure ulcer
Stage IV right hip pressure ulcer
-On admission patient was hypotensive at 89/56, febrile at 101.4, HR 105.
-S/p 5L of NSS in the ED, and continued on IV NS at 100cc/hr. He is no longer hypotensive, but unable to definitively call this shock
-Source of infection is most likely secondary to Decubitus ulcers
-He has a history of ulcers positive for MSSA, Pseudomonas, Strep. Progenies, Proteus Mirabilis, Enterococcus faecalis in 2023, and Gayle auris in 2024
-All previously positive blood cultures determined to be due to contaminant from diptheroids and staph epi. D/c'ed Vancomycin 05/02, no role for further antibiotics.
-Given history of c. auris infection, precautions must be continued despite no active MRSA infection.
-Contacted to provide update of GJ tube replacement occuring today. She is ready to have him return home. She is, as of today, receptive to palliative care in the outpatient setting and requests resources to continue discussions with them.
Discussed his case with Case Management to ensure smooth transition from inpatient care to outpatient care with palliative care.
-Echocardiogram showed no evidence of valvular vegetations
-Continue wound care for his sacral wounds
-Continue to follow cultures
-Will monitor
Acute Bronchiectasis Flare with Increased Secretions
-Per CT Scan of the Chest/Abdomen/Pelvis: Mild bronchiectasis. New
-Increased secretions requiring regular suctioning by nursing staff
-Patient is in need of suctioning of tracheostomy site at regular intervals as needed for increased secretions secondary to acute bronchiectasis flare. Suction will help to improve hypoxemia and prevent infections. Patient is nonmobile within the
home. Tracheostomy collar alone is insufficient to address his secretions, trial of scheduled nebulizers and acetylcysteine solution has also not decreased his requirement for suction. Regular suction upon discharge is needed to improve symptoms.
Feeding tube malfunction:
-05/01 nurse noted feeding tube ruptured during attempted flush.
-Goals of care continue to be restorative
-IR consulted 05/01 for repair. Patient being prepped for replacement today
-Continue IV fluid support while feeding tube remains unusable
Acute Exacerbation of Seizures, Resolved
Seizures s/p Anoxic Brain Injury
Functional Quadriplegia
-S/p anoxic brain injury/hemorrhagic CVA and cardiac arrest in 08/2021 at [facility]
-CT Head 08/2021 showed multiple large areas of cerebral infarction bilaterally with areas of hemorrhagic transformation with diffuse cerebral edema, mild left to right midline shift.
-Increased number of seizures despite compliance with medications over the last 5 days likely secondary to sepsis. Was given Ativan 0.5mg at 8PM on 04/26 prior to reporting to the ED. A single dose of acyclovir 20mg/kg was also given
-Outpatient, patient follows with Neurology at [facility] with Dr. Melissa Frost
-Continue Depakote 875mg TID, via IV due to feeding tube malfunction. Plan to switch back to tube following replacement today
-Continue Keppra 1000mg BID, via IV due to feeding tube malfunction. Plan to switch back to tube following replacement today
-Will monitor
History of Current Trach Collar with 5L Oxygen
-Copious trash secretions noted on arrival, and again today
-Sputum culture no growth to date
-Continue guaifenesin 600mg BID, though currently being held due to feeding tube malfunction
-Continue mucomyst nebulizer
Oral Thrush
-Noted upon arrival
-S/p one time dose of Diflucan 100mg
Anemia of Chronic Disease
Iron Deficiency Anemia
-Continue to monitor H&H
Paroxysmal Atrial Fibrillation
-HOLD metoprolol due to hypotension
Hypothyroidism
-TSH high at 41
-Continue levothyroxine 75 mcg daily, though currently being held due to feeding tube malfunction
-Will need repeat testing in 2-4 weeks for medication adjustment
History of Shock Liver/Multisystem Organ Dysfunction/Renal Failure in the setting of COVID19 infection 08/2021
History of PE in 2023 (Per )
Patient is in need of suctioning of tracheostomy site at regular intervals as needed for increased secretions secondary to acute bronchiectasis flare. Suction will help to improve hypoxemia and prevent infections. Patient is nonmobile within the
home. Tracheostomy collar alone is insufficient to address his secretions, trial of scheduled nebulizers and acetylcysteine solution has also not decreased his requirement for suction. Regular suction upon discharge is needed to improve symptoms.
Dispo: Will contact again today regarding ongoing care. Plan for d/c to home.
Anticipated Discharge: Within 24 hours
Subjective/Interval History
-
Date of Service: May 03, 2025
Patient was resting in his room when I arrived. He was being prepped for transport down to Interventional Radiology for feeding tube replacement. He continues to be nonverbal at baseline.
Objective Data
-
Labs:
Laboratory Results
05/03/25
04:33
WBC 6.7
Hgb 8.8 L
Hct 28.0 L
Plt Count 127 L
Sodium 145
Potassium 3.6
Chloride 116 H
Carbon Dioxide 27
BUN 16
Creatinine 1.0
Glucose 79
Calcium 9.1
Vital Signs:
Vital Signs
Temp Pulse Resp BP Pulse Ox
97.5 F 64 20 154/88 100
05/02/25 23:31 05/03/25 07:19 05/03/25 07:19 05/03/25 02:25 05/03/25 07:19
I&O
05/02/25 05/03/25 05/04/25
06:59 06:59 06:59
Intake Total 905 / 905 1150 / 1150
Output Total 600 / 600
Balance 905 / 905 550 / 550
Review of Systems
-
Unable to obtain full review of systems at this time due to: Patient Non-verbal
History Source: Patient
Physical Exam
-
General: Well Developed, Well Nourished and No Apparent Distress
HEENT: Normocephalic and Atraumatic
Respiratory: Other (Tracheostomy collar in place)
Cardiac: Regular Rhythm and S1/S2
GI: Other (GJ tube is present with hole, unchanged from yesterday)
Skin: Warm and Dry
Neuro: Negative Awake, Alert or Oriented
[2025-05-03] MEDS: ROBITUSSIN TUBE (07:29)
[2025-05-03] MEDS: FERROUS SULFATE ORAL LIQUID TUBE (07:48)
[2025-05-03] MEDS: KEPPRA 1000 MG IV (07:48)
[2025-05-03] MEDS: DESENEX/MITRAZOL/ZEASORB 1 APPLIC TOPICAL (07:49)
[2025-05-03] MEDS: DAKIN'S SOLUTION 0.125% 1/4 STRENGTH 473 ML TOPICAL (07:50)
[2025-05-03 07:52] VITALS: BP 149/89
[2025-05-03 08:40] VITALS: BP 135/73; BP_SYST 71
[2025-05-03 09:12] VITALS: BP 144/87
--- NOTE | 2025-05-03 11:10 | CM ---
Addendum entered by Mariela Garcia 05/03/25 16:33:
DME script and clinical information faxed to [facility] [phone] and call requesting additional training for patient ,[employer] liaison aware family is requesting additional training. Patient coming to at 6pm for training with suction
equip and CM spoke with liaison at [facility] requesting additional training and supports. CM spoke with patient and resident plan is for discharge later tonight with ambulance transportation forms placed on chart with community development worker. IMM form left in room
with patient and nursing made aware of requested training. CM will continue to follow for discharge planning needs.
Plan; home with [facility], Palliative care, and [facility] referral for DME.
Addendum entered by Mariela Garcia 05/03/25 13:32:
PLease fax information to [facility] at [phone]
Addendum entered by Mariela Garcia 05/03/25 13:27:
Physician contacted CM via tt and requested information on Palliative care. Referral sent via all scripts; CM left for Palliative care at [phone]/fax [phone].
Original Note:
Patient out of room to IR per nursing. CM will return to continue to follow for discharge planning needs.
Plan; home with resumption of [facility] will need referral
--- NOTE | 2025-05-03 12:51 | W.PN.PUL3 ---
Today's Communication / Plan
-
-
From the pulmonary perspective:
Continue with tracheal suctioning
While in the hospital may continue with 3% saline
At discharge will continue budesonide nebulizer twice a day, albuterol nebulized twice a day combination
May continue acetylcysteine nebulized twice a day
Observe off antibiotics
Continue with trach care
Hopefully discharge planning soon
Assessment
-
Impression:
#Febrile illness - due to MRSE bacteremia
#Fecal impaction in rectum
#Sacral decubitus ulcer (chronic)
#Leukocytosis
#Chronic anemia
#Pulmonary fibrosis
#History of eosinophilia (absolute eosinophil count 1200 on 03/16/2025; was as high as 1500 on 06/18/2024)
#Right upper lobe bleb measuring 4.9 cm with bilateral bronchiectasis
#Acute flare of bronchiectasis with increased secretions
#Hx of seizures following hemorrhagic stroke (2021)
#History of COVID-19 pneumonitis complicated by cardiac arrest (2021)
#Paroxysmal A-fib
Plan:
- Continue with secretion clearance interventions-has thick secretions.
-nurses are suctioning him almost every 2-3 hours
-- He has a Hx of hypercapnia --> blood gas checked on AM of 04/29 and no significant hypercapnia seen with pH 7.36, pCO2 48
- Need to keep up with airway suctioning otherwise he will be at high risk of plugging
- Continue Mucinex, mucomyst 20% BID and nebulized albuterol to help him expectorate; 3% saline nebs bid.
- prn nebulized bronchodilators - not currently bronchospastic
- Given his elevated eosinophils in setting of bronchiectasis and large amounts of mucous, Continue nebulized pulmicort; on recent CT Chest on 04/27/2025, no evidence of bacterial pneumonia
- Maintain SpO2 >90-94% with trach collar at 28%
-
-unable to use tube feeds now that his G-J tube has a hole in the tubing --> IR consulted by primary team for replacement; this has happened multiple times in the past
- Aspiration precautions keeping HOB >30-45�
- PEG tube to get replaced.
- Neurology consulted and recs appreciated
- CT head performed on 04/28 showed no acute intracranial hemorrhage with multiple areas of calcification within both hemispheres likely from prior hemorrhagic CVAs
- Defer AEDs to Neuro - currently on valproate + Keppra
-Fever and leukocytosis resolved.
2 blood cultures from 04/27 are positive --> both are growing diphtheroids and 1 blood culture is growing MRSA; surveillance blood cultures collected on 04/29 and 05/01 both show NGTD
- TTE performed on 04/30 does not show any evidence of vegetation
- Depending if surveillance blood cultures are positive, he may need a DANIE to further evaluate for endocarditis
- Obtain set of daily surveillance blood Cx, as requested by ID
- He was malodorous when he was first brought in and continues to have a generalized foul odor coming from body
- Wound care to sacrum and other chronic wounds- may need general surgery consult depending on wound care recs
- Follow up wound Cx from buttock (GNR x 3 morphologies, Streptococcus spp and diphtheroids x 2 morphologies)
- Follow up urine Cx (NGTD)
- Secretions sent for culture from tracheal stoma (growing 3 different morphologies of moderate GNR --> likely colonization; follow-up species)
- Defer ABx to primary team + ID --> had been on Vanco/Zosyn however Zosyn has now been discontinued, and last day of IV vanc (05/02)
No further ABX recommended per ID.
- DVT ppx: LMWH
Code status: DNR/DNI
Poor quality of life; recommend GOC discussion with family
Given that he is on a trach collar with pulmonary fibrosis and multifocal areas of bronchiectasis, Pulmonary service will continue to follow along.
Data:
CT Chest/Abd/Pelvis with IV contrast 04/27/2025:
No acute disease of the chest.
Minimal pulmonary fibrosis. New., Mild bronchiectasis. New. Moderate emphysematous disease. Stable
Findings suggestive of fecal impaction. Progressed
Two 6 mm gallstones. Stable
Mild diffuse bladder wall thickening. This can be seen with cystitis and bladder outlet obstruction. New
Total time spent today was 36 minutes for this encounter. Time includes reviewing laboratory test/imaging results, reviewing pertinent medical records, obtaining and reviewing medical history, performing an appropriate exam, ordering medications,
tests and procedures. Time also includes documentation of this encounter, coordinating patient care and communicating with other healthcare professionals. Total time does not include separately billed tests performed on this date of service.
Subjective Data
-
Date of Service:
Date of Service: May 03, 2025
Chief Complaint: Pulmonary Follow Up
Subjective:
Unable to provide history
No pulmonary issues overnight
Review of Systems
General: Other (Tracheotomy status)
Objective Data
Data Reviewed
Vital Signs / I&O / Oxygen:
Vital Signs
Temp Pulse Resp BP Pulse Ox
98 F 65 20 144/87 90
05/03/25 08:40 05/03/25 09:12 05/03/25 09:12 05/03/25 09:12 05/03/25 08:40
Intake and Output
05/02/25 05/03/25 05/04/25
06:59 06:59 06:59
Intake Total 905 / 905 1150 / 1150
Output Total 600 / 600
Balance 905 / 905 550 / 550
SaO2 90
Nasal Cannula flow liters per 6
minute
Physical Exam
General: Respiratory Distress (negative), Comfortable and Chills (negative)
HEENT: Normocephalic, Anicteric and Other (tracheostomy)
Cardiovascular: S1-S2 and Peripheral Edema (Trace LE edema bilaterally)
Respiratory: Wheeze (negative), Crackles (negative), Rhonchi (Bilateral), Non-Labored Respirations and Stridor (negative)
GI: Soft, Non Distended, Non Tender, Normal Bowel Sounds and Feeding Tube (hole seen in tubing)
Neurology: Tremors (negative) and Non Verbal
Skin: Warm, Dry, Cyanosis (negative) and Other (contracted limbs)
Labs/Micro/Reports
Lab Data
05/03/25 04:33
05/03/25 04:33
Microbiology
04/27/25 16:53 Blood/Venous Blood Culture - Preliminary
Staphylococcus epidermidis
Diptheroids
04/27/25 16:53 Blood/Venous Gram Stain - Final
04/27/25 16:18 Blood/Venous Blood Culture - Preliminary
Positive culture in progress
04/27/25 16:18 Blood/Venous Gram Stain - Preliminary
05/01/25 06:43 Blood/Venous Blood Culture - Preliminary
No Growth in 48 hours- Final report to follow
05/01/25 05:59 Blood/Venous Blood Culture - Preliminary
No Growth in 48 hours- Final report to follow
05/02/25 05:40 Blood/Venous Blood Culture - Preliminary
No Growth in 24 hours- Final report to follow
04/29/25 18:31 Blood/Venous Blood Culture - Preliminary
No Growth in 72 hours- Final report to follow
04/27/25 20:01 Buttock Wound Culture - Final
Gram negative bacilli
Streptococcus species
Diptheroids
Additional testing on request
04/27/25 20:01 Buttock Gram Stain - Final
04/28/25 09:52 Endotracheal Respiratory Culture - Final
Gram negative bacilli
Additional testing on request
04/28/25 09:52 Endotracheal Gram Stain - Final
04/27/25 16:18 Blood/Venous Blood Culture - Preliminary
Diptheroids
04/27/25 16:18 Blood/Venous Gram Stain - Preliminary
--- NOTE | 2025-05-03 13:40 | HOSPNOTE ---
Spoke with Attending and the plan per spouse is for patient to go home with palliative care. I will inform palliative care and asked that the patient be followed out patient with palliative.
--- NOTE | 2025-05-03 15:27 | W.PN.ID1 ---
Date of Service
Date of Service: May 03, 2025
Today's Communication
Observe off antibiotics.
Assessment / Plan
Staph epidermidis bacteremia (1 of 3 sets)
- Contaminant
- previously reported as MRSA but corrected.
Diphtheroid bacteremia 2 of 3 sets
-contaminants
Leukocytosis
- resolved
Fever - resolved
Seizures
Paroxysmal Atrial Fibrillation
Anoxic Brain Injury
Multiple Stage IV Pressure Injuries
Severe contractures
Anemia of Chronic Disease and Iron Deficiency Anemia
Seizure Disorder
Esophagitis / Esophageal Ring
Recommendations:
Ucx neg.
CXR and CT chest neg parenchymal opacities.
Repeat blood cx's neg to date
TTE no gross vege
Observe off antibiotics. Local care to wounds.
Overall long-term prognosis poor.
����������������������������������������������������������
Chief Complaint
-: Bacteremia
Subjective / Review of Systems
Review of Systems: No Fever
Vital Signs / Physical Exam
Vital Signs
Vital Signs
Temp Pulse Resp BP Pulse Ox
98 F 65 20 144/87 90
05/03/25 08:40 05/03/25 09:12 05/03/25 09:12 05/03/25 09:12 05/03/25 08:40
Physical Exam
Constitutional: Comfortable and Chronically Ill
Eyes: Sclera Anicteric
Cardiovascular: Regular Rate and S1/S2
Pulmonary: Rhonchi and Other (Trach collar in place)
Gastrointestinal: Soft, Non Tender and Non Distended
Genito-Urinary: Prince and Clear Urine
Musculoskeletal: Other (contracted extremities)
Objective Data
Lab Data
Lab Results
05/03/25 04:33
05/03/25 04:33
PT 16.2 Sec (11.4-14.6) H 04/28/25 03:58
INR 1.27 04/28/25 03:58
APTT 25.7 Sec (23.4-35.0) 04/28/25 03:58
Estimated Creat Clear 67 ml/min 05/03/25 04:33
Lactic Acid Cancelled 04/27/25 20:15
Total Bilirubin 0.2 mg/dl (0.2-1.3) 05/02/25 05:40
AST 18 U/L (17-59) 05/02/25 05:40
ALT 10 U/L (0-50) 05/02/25 05:40
Alkaline Phosphatase 59 U/L (38-126) 05/02/25 05:40
Most recent labs reviewed.
Micro Results:
04/27/25 16:53 Blood Culture - Preliminary
Blood/Venous Staphylococcus epidermidis
Diptheroids
Gram Stain - Final
04/27/25 16:18 Blood Culture - Preliminary
Blood/Venous Positive culture in progress
Gram Stain - Preliminary
05/01/25 06:43 Blood Culture - Preliminary
Blood/Venous No Growth in 48 hours- Final report to follow
05/01/25 05:59 Blood Culture - Preliminary
Blood/Venous No Growth in 48 hours- Final report to follow
05/02/25 05:40 Blood Culture - Preliminary
Blood/Venous No Growth in 24 hours- Final report to follow
04/29/25 18:31 Blood Culture - Preliminary
Blood/Venous No Growth in 72 hours- Final report to follow
04/27/25 20:01 Wound Culture - Final
Buttock Gram negative bacilli
Streptococcus species
Diptheroids
Additional testing on request
Gram Stain - Final
04/28/25 09:52 Respiratory Culture - Final
Endotracheal Gram negative bacilli
Additional testing on request
Gram Stain - Final
04/27/25 16:18 Blood Culture - Preliminary
Blood/Venous Diptheroids
Gram Stain - Preliminary
04/27/25 18:11 Urine Culture - Final
Urine NO GROWTH
04/27/25 16:53 Influenza Types A & B (MAYELA) - Final
Nasal Swab Negative for Influenza A & B, NAAT
Negative results must be combined with clinical observations
and patient history.
Nucleic Acid Amplification test (NAAT)performed on the
[employer] platform.
Imaging:
04/27/2025 CT chest/abdomen/pelvis with IV contrast: no acute disease in the chest. Minimal pulmonary fibrosis. Mild bronchiectasis. Moderate emphysematous disease. Findings suggestive of fecal impaction, progressed. Two 6 mm gallstones, stable.
Mild diffuse bladder wall thickening which can be seen in cystitis and bladder outlet obstruction. Please see full dictation for additional detail.
[2025-05-03] MEDS: DEPAKENE 875 MG TUBE ×2 (15:41→22:53)
[2025-05-03 15:45] VITALS: BP 129/82
[2025-05-03] MEDS: LOVENOX 40 MG SC (17:09)
--- NOTE | 2025-05-03 19:12 | W.PN.UPDATE ---
Update Note
Progress Note Update
Patient's arrived at the bedside just prior to 6PM, where I met her alongside patient's nurse, Marge. We had planned this meeting earlier in the day to take place before his scheduled discharge tonight to demonstrate how to suction the
patient's tracheostomy site so that the patient's could do this at home with DME, as well as discuss his goals of care after discharge. Marge demonstrated suction to the patient's during this encounter, taking time to explain each step
thoroughly and answering all questions she had about the process. Patient's reports he has had copious amounts of secretions for >1 year, and that previously she had had a suction machine but had returned it as she had not been previously
taught how to use it and he had not required it. Currently, he is receiving suction every 2-3 hours, though this seems to be increasing today.
I spent time discussing the patient's continued care and goals of care with his . Of note, when we arrived in the room the patient was visibly uncomfortable in a way he had not been this morning when I came to see him, and was moving his head
from side to side in distress. This was briefly relieved by suction, but returned within 10 minutes during our conversation. His states this is very abnormal for him as he is not usually so distressed. I spent time reviewing his new urinary
retention with her, which is also not his baseline (He uses a condom catheter at home).
She states that prior to his anoxic brain injury 4 years ago, her was very active and would hate to sit on the couch for prolonged periods of time as he enjoyed moving around. She does not think he would want to continue restorative care
this if he could see himself now, and would prefer to be comfortable. She states she has hospice 'on speed dial' at home, but he has pulled through so many diseases before that she is feels he can pull through this one as well. We did discuss that
even if his secretions decreased and he is no longer retaining urine as he was at home prior to admission, many of his ongoing illnesses stem from his anoxic brain injury which cannot be fixed. We discussed that right now he is not safe to return
home given his new urinary retention, increasing need for frequent suction, and obvious distress.
At this time, his is in agreement about placement of a price catheter if needed for acute urinary retention. He is due for a bladder scan at 7PM. I plan to meet again in person with his at 3PM on 05/04/2025 in the patient's room to discuss
his goals of care again so she can think about inpatient hospice vs home with hospice overnight. She is unfortunately unable to meet with me in the morning. She understands that he may not be able to be discharged to home tomorrow either based upon
the above factors, and as patient will require transportation to be set up to bring him home.
Total time spent discussing this case with his and coordinating care: 47 minutes.
--- NOTE | 2025-05-03 19:24 | PTCARENOTE ---
Patient requiring q2-3 hr suction and q 6 hour straight caths. Increased concern for patient being discharged without home suction set up and no plans for straight caths or price placement. Concerns relayed to MD, resident and CM. at the
bedside. Patient grimacing with increased secretions. Resident at bedside. Discharge cancelled. Price order placed. Plan for GOC discussion with and resident tomorrow afternoon in patients room.
[2025-05-03] MEDS: ROBITUSSIN 1200 MG TUBE (20:01)
[2025-05-03] MEDS: KEPPRA 1000 MG TUBE (20:01)
[2025-05-03] MEDS: FERROUS SULFATE ORAL LIQUID 300 MG TUBE (20:02)
[2025-05-03] MEDS: ROXANOL ORAL CONCENTRATE 5 MG TUBE (22:53)
[2025-05-03] MEDS: LIPITOR 40 MG TUBE (22:54)
[2025-05-03 23:39] VITALS: BP 126/88
[2025-05-04] MEDS: SYNTHROID 75 MCG TUBE (05:24)
[2025-05-04 05:52] LABS: Hematocrit 30.1 % (39.0-52.0); Hemoglobin 9.3 g/dL (13.0-18.0); Mean Corp Hgb Conc. 30.9 g/dL (33.0-37.0); Mean Corpuscular Volume 110.7 fL (80.0-94.0); Platelet Count 148 10^3/uL (130-400); Red Cell Dist. Width 13.7 % (11.5-14.5)
[2025-05-04 06:15] LABS: Blood Urea Nitrogen 19 mg/dl (9-20); Calcium 8.6 mg/dl (8.4-10.2); Carbon Dioxide 29 mmol/L (22-30); Chloride 114 mmol/L (98-107); Estimated Creatinine Clearance 67 ml/min; Glucose 113 mg/dl (70-99); Potassium 3.6 mmol/L (3.5-5.1); Sodium 145 mmol/L (135-145); eGFR > 60.00
[2025-05-04] MEDS: PULMICORT 0.5 MG INH ×2 (07:19→19:33)
[2025-05-04] MEDS: MUCOMYST 20% 2 ML INH ×2 (07:20→19:33)
[2025-05-04] MEDS: SODIUM CHLORIDE 3% FOR INHALATION 1 VIAL INH ×2 (07:20→19:33)
--- NOTE | 2025-05-04 07:21 | W.DCSUMMARY ---
Discharge Summary
Discharge Data
Date of Admission: 04/27/25
Date of Discharge: 05/05/25
-
Pending Results: No
Hospital Course
c
Discharge Plan
-
Patient Disposition: Home (Routine Discharge)
Discharge Diagnosis/Procedures: Acute Exacerbation of Seizure Disorder
Condition: Fair
Diet: Tube feeding
Activity: As tolerated
Driving Restrictions: No driving
Bathing Restrictions: None
Other Services: VN
Activity Restrictions/Additional Instructions:
Wound Care Instructions
Clean all wounds with soap and water or Dakin's
R mid lower back and R hip: thin layer of barrier cream to periwound, Dakin's moist 2x2 gauze to base of wound cover with silicone foam change daily and prn soilage.
R lower buttock & L hip: silicone foam change q 2-3 days and prn soilage
sacrum and buttocks: clean with soap and water, barrier cream daily and prn incontinence
R neck: clean with soap and water, small silicone foam change q 3 days and prn soilage until healed.
lower legs: clean with soap and water, apply dusting of fungal powder daily followed by silicone foam, change foam q 2-3 days and prn soilage
heels and elbows: skin prep and protective foams change q 3 days and prn soilage.
air mattress with turning schedule
Referrals:
UNKNOWN,NO INTERVIEW [Family Provider]
Additional Discharge Medication Instructions: At this hospitalization, you had increased secretions requiring suction. In addition to continuing suction after discharge, we are prescribing you the following medications:
Acetylcysteine, Budesonide
You should continue your albuterol inhalers as well.
Your dose of Keppra was also changed at this visit. You should take 1000mg now.
Your dose of levothyroxine was also changed at this visit. You should take 75mcg now.
Prescriptions:
New
acetylcysteine 200 mg/mL (20 %) Solution
2 ml inhalation R BID Qty: 120 0RF
budesonide 0.5 mg/2 mL Suspension For Nebulization
0.5 mg inhalation R BID Qty: 30 0RF
Continued
atorvastatin 40 MG tablet
40 mg feeding tube HS
acetaminophen 325 MG tablet
650 mg feeding tube Q4HPRN PRN (Reason: mild pain, temp>100.4)
albuterol sulfate 2.5 MG/3 ML solution for nebulization
2.5 mg inhalation R [id number] PRN (Reason: sob)
ascorbic acid (vitamin C) [Vitamin C] 500 mg Tablet
500 mg feeding tube DAILY
ferrous sulfate 300 mg (60 mg iron)/5 mL Liquid
300 mg feeding tube BID
Santyl 250 unit/gram Ointment
1 applic TOPICAL DAILY
metoprolol tartrate 25 mg Tablet
25 mg feeding tube Q12 30 Days Qty: 60 0RF
Dakin's Solution 0.125 % Solution
1 applic topical DAILY Qty: 473 0RF
miconazole nitrate [Miconazorb AF] 2 % powder
1 applic topical DAILYPRN PRN (Reason: soilage/drainage)
lorazepam 0.5 mg tablet
0.5 mg feeding tube PRN PRN (Reason: seizure )
valproic acid (as sodium salt) 250 mg/5 mL solution
875 mg feeding tube TID
Changed
levothyroxine 50 mcg tablet
75 mcg feeding tube DAILY@07 Qty: 30 0RF
levetiracetam [Keppra] 100 mg/mL Solution
1,000 mg feeding tube BID Qty: 600 0RF
Discharge Date and Time
Print Language: URDU
--- NOTE | 2025-05-04 07:21 | W.PN.HOSP.TC ---
Addendum entered and electronically signed by Armando Arroyo MD 05/04/25 18:42:
Attending Addendum-
I saw and evaluated the patient. I reviewed the resident�s note and agree with findings and plan as documented in the resident�s note. Sub: Patient nonverbal. called by nursing multiple times re frequent sucitoning resp distress and appearing to be
in pain. patient having excessive secretions. ROS unable to obtain. Exam: Vitals reviewed in chart GEN-mod distress HEENT TC in place moderate secretions present, heart RRR no MRG, Lungs crackles at bases abd GJ tube in place, soft NT ND pos BS LE
+1 B/L LE edema Neuro unable to follow commands, severely contracted appears uncomfortable
Plan:
#Sepsis
#sacral decub stage 4/stage I bilateral buttocks/healing right mid lower back and right hip stage 4 PI
#POA
#Chronic bedbound status with contractures/functional quadriplegia
- Wound culture-polymicrobial as expected
- cont wound care
- has not required pressors
- Blood cx- 1/3-MRSA->staph epi, 2/3-diphtheroids - all likely contaminants
- abx dc'd
- ID input appreciated
- ECHO 04/30- LVEF WNL, no obvious signs of vegetation
- repeat blood cx-NGTD
- WBC now WNL
#Acute exacerbation of seizures in setting of sepsis
#Seizures post anoxic brain injury/Chronic Tremors to RIGHT ARM
- has reported multiple seizures X5 days Facial twitching eye brows move up increased right side / eye gaze numerous per day
- follows with Dr Melissa conrad [facility] [place]
- Continue IV Depakote 875mg tid - home dose
- cont increased Increase Keppra from 750 mg twice daily to 1000 mg twice daily
- appreciate neuro input
# Acute on Chronic hypoxemic respiratory failure
- chronically on trach collar with 5 L oxygen
- appreciate pulm input
- cont guaifenesin and suctioning
- cont mucolytics and nebs
- suction machine ordered for patient
- poor prognosis likely recurrent aspiration
- check CXR and ABG urgently to aide with determining prognosis not a candidate for mech vent or NIPPV
- c/s pall care, GOC discussions underway
- transfer to IMU
#Dysphagia/GJ tube
-NPO
-tube replaced over weekend
# Urinary Retention
- cont flomax
- cont price
- hisk risk infection with multiple sacral wounds
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
#PE 2023 s/p thrombectomy
#Hypothyroidism- TSH elevated - increased levothyroxine to 75mcg
#Paroxysmal A-fib August 2021
-metoprolol held due to hypotension- restart prior to DC
-not on AC due h/o hem CVA
#Anemia of chronic disease
#Iron deficiency anemia
DVT prophylaxis
Subcu Lovenox
Code- DNR
Dispo-from home with - GOC discussions underway
Time spent coordinating care, review of plan of care with resident, personally reviewed records in EMR, med rec, consults, notes, labs, radiology, d/w nursing, pharmacy family pul� 56 mins
Original Note:
Today's Communication/Plan
-
Continue suction every hour
Continue morphine and ativan as needed for signs of pain/distress including grimacing, thrashing, and screaming
Assessment / Plan
Assessment / Plan
Assessment
This is a 59 y/o male with pmhx of quadriplegia, paroxysmal afib, decubitus ulcers, seizure disorder s/p anoxic brain injury taking Keppra (750mg BID) and Depakote (875mg TID) who presented to the ED with increased seizure activity in the setting of
sepsis.
Plan
Sepsis
Unstageable Sacral Decubitus Ulcer
Stage I Bilateral Buttocks and Lower Back Decubitus Ulcer
Stage IV mid lower back pressure ulcer
Stage IV right hip pressure ulcer
-On admission patient was hypotensive at 89/56, febrile at 101.4, HR 105.
-S/p 5L of NSS in the ED, and continued on IV NS at 100cc/hr. He is no longer hypotensive, but unable to definitively call this shock
-Source of infection is most likely secondary to Decubitus ulcers
-He has a history of ulcers positive for MSSA, Pseudomonas, Strep. Progenies, Proteus Mirabilis, Enterococcus faecalis in 2023, and Gayle auris in 2024
-All previously positive blood cultures determined to be due to contaminant from diptheroids and staph epi. D/c'ed Vancomycin 05/02, no role for further antibiotics.
-Given history of c. auris infection, precautions must be continued despite no active MRSA infection.
-Echocardiogram showed no evidence of valvular vegetations
-Continue wound care for his sacral wounds
-Continue to follow cultures
-Will monitor
Acute Bronchiectasis Flare with Increased Secretions
Irritation of the Skin secondary to above
-Per CT Scan of the Chest/Abdomen/Pelvis: Mild bronchiectasis. New
-Increased secretions requiring regular suctioning by nursing staff, now every hour as of late yesterday/overnight
-Patient now has a bandage in place over his chest as nursing staff noted increased irritation of the skin due to frequently having to clean the skin of his chest following suctioning to remove secretions. Will need to continue to follow to ensure
skin does not experience breakdown.
-Patient is in need of suctioning of tracheostomy site at regular intervals as needed for increased secretions secondary to acute bronchiectasis flare. Suction will help to improve hypoxemia and prevent infections. Patient is nonmobile within the
home. Tracheostomy collar alone is insufficient to address his secretions, trial of scheduled nebulizers and acetylcysteine solution has also not decreased his requirement for suction. Regular suction upon discharge is needed to improve symptoms.
He will not be safe to return home without regular suctioning
-Continue morphine and ativan added yesterday evening as needed for signs of pain/distress including grimacing, thrashing, and screaming
Acute Urinary Retention
-Patient with new acute urinary retention, as he uses a condom catheter at home
-Price is now in place, was placed late in the evening on 05/03
-D/c date currently set to 05/06
-Will monitor
Feeding tube malfunction, resolved
-05/01 nurse noted feeding tube ruptured during attempted flush.
-Goals of care continue to be restorative
-IR consulted 05/01 for repair.Tube was successfully replaced and feedings via tube were resumed on the same day
Acute Exacerbation of Seizures, Resolved
Seizures s/p Anoxic Brain Injury
Functional Quadriplegia
-S/p anoxic brain injury/hemorrhagic CVA and cardiac arrest in 08/2021 at [facility]
-CT Head 08/2021 showed multiple large areas of cerebral infarction bilaterally with areas of hemorrhagic transformation with diffuse cerebral edema, mild left to right midline shift.
-Increased number of seizures despite compliance with medications over the last 5 days likely secondary to sepsis. Was given Ativan 0.5mg at 8PM on 04/26 prior to reporting to the ED. A single dose of acyclovir 20mg/kg was also given
-Outpatient, patient follows with Neurology at [facility] with Dr. Melissa Frost
-Continue Depakote 875mg TID, via feeding tube
-Continue Keppra 1000mg BID, via feeding tube
-Will monitor
History of Current Trach Collar with 5L Oxygen
-Copious trash secretions noted on arrival, and again today. Suctioning requirements increased. Bandage now in place due to skin irritation from frequent cleanings after suction.
-Sputum culture no growth to date
-Continue guaifenesin 600mg BID, though currently being held due to feeding tube malfunction
-Continue mucomyst nebulizer
Oral Thrush
-Noted upon arrival
-S/p one time dose of Diflucan 100mg
Anemia of Chronic Disease
Iron Deficiency Anemia
-Continue to monitor H&H
Paroxysmal Atrial Fibrillation
-HOLD metoprolol due to hypotension
Hypothyroidism
-TSH high at 41
-Continue levothyroxine 75 mcg daily via tube
-Will need repeat testing in 2-4 weeks for medication adjustment
History of Shock Liver/Multisystem Organ Dysfunction/Renal Failure in the setting of COVID19 infection 08/2021
History of PE in 2023 (Per )
Dispo: Patient's needs have continued to evolve since update note last night around 7PM. He now requires suction hourly instead of every 2-3 hours, has a price catheter in place due to acute urinary retention, and is having obvious signs of pain
during movement including vocalizations, and grimacing at baseline even when not being moved. Discharge planning deferred until these needs can be addressed to ensure a safe discharge. His prognosis is very poor, and the likelihood of him being able
to be discharge to home is very low especially as his needs continue to rise daily beyond what can be reasonably managed by anything except 24 hour care. He also likely would not tolerate transport to home at this time given his extreme pain when
being moved. I spent time updating his case mgr and nurse this morning to ensure his entire team was up to date on his case.
Anticipated Discharge: > 48 hours
Subjective/Interval History
-
Date of Service: May 04, 2025
Patient was in his bed when I arrived. He continues to be non-verbal at baseline. By nursing report, he is now requiring suctioning every hour vs 2-3 hours as he had previously during this admission. He also, as of last night, has begun to scream
when he is being repositioned in bed, which is also new. He appears distinctly uncomfortable to me today compared to prior, and the nurses report that he is now grimacing in pain frequently even if he is not being repositioned.
Objective Data
-
Labs:
Laboratory Results
05/04/25
05:27
WBC 8.6
Hgb 9.3 L
Hct 30.1 L
Plt Count 148
Sodium 145
Potassium 3.6
Chloride 114 H
Carbon Dioxide 29
BUN 19
Creatinine 1.0
Glucose 113 H
Calcium 8.6
Vital Signs:
Vital Signs
Temp Pulse Resp BP Pulse Ox
99.3 F 106 18 126/88 97
05/03/25 23:39 05/03/25 23:39 05/03/25 23:39 05/03/25 23:39 05/03/25 23:39
I&O
05/03/25 05/04/25 05/05/25
06:59 06:59 06:59
Intake Total 1150 / 1150 710 / 710
Output Total 600 / 600 1050 / 1050
Balance 550 / 550 -340 / -340
Review of Systems
-
Unable to obtain full review of systems at this time due to: Patient Non-verbal
Physical Exam
-
General: Other (Patient is laying in bed with his eyes rolled upwards. He is nonresponsive to the sound of my voice or touch. He does not appear comfortable.)
HEENT: Normocephalic and Tracheotomy (5L O2. The site below the tracheotomy is now covered in a medical bandage as the skin was becoming inflamed from repeated cleaning post suction)
Cardiac: Regular Rhythm and Carotid Pulses
GI: Other (GJ Tube in place, tube feed currently underway.)
Skin: Warm and Dry
Neuro: Negative Awake
[2025-05-04 07:40] VITALS: BP 125/74
[2025-05-04] MEDS: DEPAKENE 875 MG TUBE ×3 (08:29→22:08)
[2025-05-04] MEDS: KEPPRA 1000 MG TUBE ×2 (08:31→22:08)
[2025-05-04] MEDS: ROBITUSSIN 1200 MG TUBE ×2 (08:32→22:08)
[2025-05-04] MEDS: FLOMAX 0.4 MG TUBE (08:32)
[2025-05-04] MEDS: FERROUS SULFATE ORAL LIQUID 300 MG TUBE ×2 (08:33→22:08)
[2025-05-04] MEDS: DAKIN'S SOLUTION 0.125% 1/4 STRENGTH 1 ML TOPICAL (08:41)
[2025-05-04] MEDS: DESENEX/MITRAZOL/ZEASORB 1 APPLIC TOPICAL (08:41)
[2025-05-04] MEDS: ROXANOL ORAL CONCENTRATE 5 MG TUBE (09:33)
--- NOTE | 2025-05-04 10:48 | W.PN.PUL3 ---
Today's Communication / Plan
-
Discharge planning:
Should be discharged on: Pulmicort/albuterol twice a day nebulized
Mucomyst nebulized twice a day
Frequent stoma suctioning every 2-3 hours per nursing
Chest percussion if possible
Prognosis is poor--> hospice appropriate
High risk for readmission and decompensated hypercapnic respiratory failure as the patient has significant muscle weakness/restriction.
Sign off
Assessment
-
Impression:
#Febrile illness - due to MRSE bacteremia
#Fecal impaction in rectum
#Sacral decubitus ulcer (chronic)
#Leukocytosis
#Chronic anemia
#Pulmonary fibrosis
#History of eosinophilia (absolute eosinophil count 1200 on 03/16/2025; was as high as 1500 on 06/18/2024)
#Right upper lobe bleb measuring 4.9 cm with bilateral bronchiectasis
#Acute flare of bronchiectasis with increased secretions
#Hx of seizures following hemorrhagic stroke (2021)
#History of COVID-19 pneumonitis complicated by cardiac arrest (2021)
#Paroxysmal A-fib
Plan:
- Continue with secretion clearance interventions-has thick secretions-likely chronic problem.
- Upon discharge tracheal stoma should be suction every 2-3 hours by nursing. Otherwise high risk for readmission.
-Need to keep up with airway suctioning otherwise he will be at high risk of plugging
-- He has a Hx of hypercapnia --> blood gas checked on AM of 04/29 and no significant hypercapnia seen with pH 7.36, pCO2 48 compensated chronic hypercapnic respiratory failure.-
-
- Continue Mucinex, should continue upon discharge.
- mucomyst 20% BID and nebulized albuterol to help him expectorate; should be discharged on this regimen.
- 3% saline nebs bid--> while in the hospital.
- prn nebulized bronchodilators - not currently bronchospastic
- Given his elevated eosinophils in setting of bronchiectasis and large amounts of mucous, Continue nebulized pulmicort; on recent CT Chest on 04/27/2025, no evidence of bacterial pneumonia
- Maintain SpO2 >90-94% with trach collar at 28%
-
- Continue tube feeds now that his G-J tube exchanged during this admission.
- Suspect has recurrent microaspiration's. Tube feedings regurgitation.
- Aspiration precautions keeping HOB >30-45�
- Neurology consulted and recs appreciated
- CT head performed on 04/28 showed no acute intracranial hemorrhage with multiple areas of calcification within both hemispheres likely from prior hemorrhagic CVAs
- Defer AEDs to Neuro - currently on valproate + Keppra
-Fever and leukocytosis resolved.
2 blood cultures from 04/27 are positive --> both are growing diphtheroids and 1 blood culture is growing MRSA; surveillance blood cultures collected on 04/29 and 05/01 both show NGTD
- TTE performed on 04/30 does not show any evidence of vegetation
- Depending if surveillance blood cultures are positive, he may need a DANIE to further evaluate for endocarditis
- Obtain set of daily surveillance blood Cx, as requested by ID
- He was malodorous when he was first brought in and continues to have a generalized foul odor coming from body
- Wound care to sacrum and other chronic wounds- may need general surgery consult depending on wound care recs
- Follow up wound Cx from buttock (GNR x 3 morphologies, Streptococcus spp and diphtheroids x 2 morphologies)
- Follow up urine Cx (NGTD)
- Secretions sent for culture from tracheal stoma (growing 3 different morphologies of moderate GNR --> likely colonization; follow-up species)
- Defer ABx to primary team + ID --> had been on Vanco/Zosyn however Zosyn has now been discontinued, and last day of IV vanc (05/02)
No further ABX recommended per ID.
- DVT ppx: LMWH
Code status: DNR/DNI
Poor quality of life; recommend GOC discussion with family-patient is hospice appropriate.
High risk for readmission, poor cough effort, poor secretion clearance.
Given that he is on a trach collar with pulmonary fibrosis and multifocal areas of bronchiectasis.
Agree with discharge planning.
Poor prognosis
Data:
CT Chest/Abd/Pelvis with IV contrast 04/27/2025:
No acute disease of the chest.
Minimal pulmonary fibrosis. New., Mild bronchiectasis. New. Moderate emphysematous disease. Stable
Findings suggestive of fecal impaction. Progressed
Two 6 mm gallstones. Stable
Mild diffuse bladder wall thickening. This can be seen with cystitis and bladder outlet obstruction. New
Subjective Data
-
Date of Service:
Date of Service: May 04, 2025
Chief Complaint: Pulmonary Follow Up
Objective Data
Data Reviewed
Vital Signs / I&O / Oxygen:
Vital Signs
Temp Pulse Resp BP Pulse Ox
99.4 F 98 18 125/74 97
05/04/25 07:40 05/04/25 07:40 05/04/25 07:40 05/04/25 07:40 05/04/25 07:40
Intake and Output
05/03/25 05/04/25 05/05/25
06:59 06:59 06:59
Intake Total 1150 / 1150 710 / 710
Output Total 600 / 600 1050 / 1050
Balance 550 / 550 -340 / -340
SaO2 97
Nasal Cannula flow liters per 6
minute
Physical Exam
General: Respiratory Distress (negative mild at rest--? Baseline) and Chills (negative)
HEENT: Normocephalic, Anicteric and Other (Tracheal stoma with yellow secretions.)
Cardiovascular: S1-S2 and Peripheral Edema (Trace LE edema bilaterally)
Respiratory: Wheeze (negative), Crackles (negative), Rhonchi (Bilateral), Non-Labored Respirations and Stridor (negative)
GI: Soft, Non Distended, Non Tender, Normal Bowel Sounds and Feeding Tube (hole seen in tubing)
Neurology: Tremors (negative), Non Verbal and Other (Contracted lower extremities)
Skin: Warm, Dry, Cyanosis (negative) and Other (contracted limbs)
Labs/Micro/Reports
Lab Data
05/04/25 05:27
05/04/25 05:27
Microbiology
04/27/25 16:18 Blood/Venous Blood Culture - Final
Diptheroids
04/27/25 16:18 Blood/Venous Gram Stain - Final
04/27/25 16:53 Blood/Venous Blood Culture - Preliminary
Staphylococcus epidermidis
Diptheroids
04/27/25 16:53 Blood/Venous Gram Stain - Final
04/27/25 16:18 Blood/Venous Blood Culture - Preliminary
Positive culture in progress
04/27/25 16:18 Blood/Venous Gram Stain - Preliminary
05/01/25 06:43 Blood/Venous Blood Culture - Preliminary
No Growth in 72 hours- Final report to follow
05/01/25 05:59 Blood/Venous Blood Culture - Preliminary
No Growth in 72 hours- Final report to follow
05/02/25 05:40 Blood/Venous Blood Culture - Preliminary
No Growth in 48 hours- Final report to follow
04/29/25 18:31 Blood/Venous Blood Culture - Preliminary
No Growth in 4 days- Final report to follow
04/27/25 20:01 Buttock Wound Culture - Final
Gram negative bacilli
Streptococcus species
Diptheroids
Additional testing on request
04/27/25 20:01 Buttock Gram Stain - Final
04/28/25 09:52 Endotracheal Respiratory Culture - Final
Gram negative bacilli
Additional testing on request
04/28/25 09:52 Endotracheal Gram Stain - Final
--- NOTE | 2025-05-04 11:47 | PTCARENOTE ---
Extensive phone conversation between this RN and this AM, update provided, deeply unsatisfied with care and stating the following: 'he does not need hospice, you are suctioning him too often, i dont understand why he needs a catheter',
education provided. asking for consult for urology as well as phone call from primary MD and entry level java developer, both MD's and resident made aware of current situation. Pt refusing to speak to this RN or resident, also refusing to come into the
building today for pre-planned meeting from before. Pt refusing to take pt home AMA but also wants him home soon, educated on instability at this time. Pt groaning with eyes wide open and slightly moving hands with discomfort, pain medication
administered with no relief, MD aware. Bathing, suctioning, and wound care all complete. Suctioning PRN every 30 min - 1 hour at this point for thick green mucus plugs. Pt turned and repositioned by this RN per Q2T schedule. No new orders at this
time.
[2025-05-04] MEDS: MORPHINE SULFATE 5 MG IV (12:51)
--- NOTE | 2025-05-04 13:01 | W.PN.ID1 ---
Date of Service
Date of Service: May 04, 2025
Today's Communication
Observe off antibiotics. Local care to wounds.
Assessment / Plan
Staph epidermidis bacteremia (1 of 3 sets)
- Contaminant
- previously reported as MRSA but corrected.
Diphtheroid bacteremia 2 of 3 sets
-contaminants
Leukocytosis
- resolved
Fever - resolved
Seizures
Paroxysmal Atrial Fibrillation
Anoxic Brain Injury
Multiple Stage IV Pressure Injuries
Severe contractures
Anemia of Chronic Disease and Iron Deficiency Anemia
Seizure Disorder
Esophagitis / Esophageal Ring
Recommendations:
Ucx neg.
CXR and CT chest neg parenchymal opacities.
Repeat blood culture with growth on day 5; suspect contaminant
TTE no gross veg.
Observe off antibiotics. Local care to wounds.
Overall long-term prognosis poor.
����������������������������������������������������������
Chief Complaint
-: Bacteremia
Subjective / Review of Systems
Review of Systems: No Fever
Vital Signs / Physical Exam
Vital Signs
Vital Signs
Temp Pulse Resp BP Pulse Ox
99.4 F 98 18 125/74 97
05/04/25 07:40 05/04/25 07:40 05/04/25 07:40 05/04/25 07:40 05/04/25 07:40
Physical Exam
Constitutional: Comfortable and Chronically Ill
Eyes: Sclera Anicteric
Cardiovascular: Regular Rate and S1/S2
Pulmonary: Rhonchi and Other (Trach collar in place)
Gastrointestinal: Soft, Non Tender and Non Distended
Musculoskeletal: Other (contracted extremities)
Wound: Other (Wound dressed.)
Neurological: Awake (Eyes open) and Other (Responsive to touch. Nonverbal.)
Objective Data
Lab Data
Lab Results
05/04/25 05:27
05/04/25 05:27
PT 16.2 Sec (11.4-14.6) H 04/28/25 03:58
INR 1.27 04/28/25 03:58
APTT 25.7 Sec (23.4-35.0) 04/28/25 03:58
Estimated Creat Clear 67 ml/min 05/04/25 05:27
Lactic Acid Cancelled 04/27/25 20:15
Total Bilirubin 0.2 mg/dl (0.2-1.3) 05/02/25 05:40
AST 18 U/L (17-59) 05/02/25 05:40
ALT 10 U/L (0-50) 05/02/25 05:40
Alkaline Phosphatase 59 U/L (38-126) 05/02/25 05:40
Most recent labs reviewed.
Micro Results:
04/27/25 16:18 Blood Culture - Final
Blood/Venous Diptheroids
Gram Stain - Final
04/27/25 16:53 Blood Culture - Preliminary
Blood/Venous Staphylococcus epidermidis
Diptheroids
Gram Stain - Final
04/27/25 16:18 Blood Culture - Preliminary
Blood/Venous Positive culture in progress
Gram Stain - Preliminary
05/01/25 06:43 Blood Culture - Preliminary
Blood/Venous No Growth in 72 hours- Final report to follow
05/01/25 05:59 Blood Culture - Preliminary
Blood/Venous No Growth in 72 hours- Final report to follow
05/02/25 05:40 Blood Culture - Preliminary
Blood/Venous No Growth in 48 hours- Final report to follow
04/29/25 18:31 Blood Culture - Preliminary
Blood/Venous No Growth in 4 days- Final report to follow
04/27/25 20:01 Wound Culture - Final
Buttock Gram negative bacilli
Streptococcus species
Diptheroids
Additional testing on request
Gram Stain - Final
04/28/25 09:52 Respiratory Culture - Final
Endotracheal Gram negative bacilli
Additional testing on request
Gram Stain - Final
04/27/25 18:11 Urine Culture - Final
Urine NO GROWTH
04/27/25 16:53 Influenza Types A & B (MAYELA) - Final
Nasal Swab Negative for Influenza A & B, NAAT
Negative results must be combined with clinical observations
and patient history.
Nucleic Acid Amplification test (NAAT)performed on the
[employer] platform.
Imaging:
04/27/2025 CT chest/abdomen/pelvis with IV contrast: no acute disease in the chest. Minimal pulmonary fibrosis. Mild bronchiectasis. Moderate emphysematous disease. Findings suggestive of fecal impaction, progressed. Two 6 mm gallstones, stable.
Mild diffuse bladder wall thickening which can be seen in cystitis and bladder outlet obstruction. Please see full dictation for additional detail.
--- NOTE | 2025-05-04 14:15 | CM ---
Reviewed the chart notes. CM spoke with [facility] ([phone]) regarding suction machine order. They have put the order on hold. They can not process until they have a discharge date. Once discharge date is planned, they can proceed with
the order once patient's family calls into to arrange for home delivery. CM continues to be available to patient/family and is monitoring medical plan for needs at discharge.
Plan: Discharge to home with [facility] and suction machine through [facility].
Andie fax: [phone]
--- NOTE | 2025-05-04 14:15 | PTCARENOTE ---
Pt with increasing respiratory distress and moaning out despite IV morphine. Resident at bedside, o2 ranging from 83-94% at this time, trach care complete, pt suctioned, no new orders at this time.
[2025-05-04 15:45] VITALS: BP 88/63
--- NOTE | 2025-05-04 16:39 | PTCARENOTE ---
Pt with increasing respiratory distress, less responsive with visual tracking, vitals as follows: 88/62, 100.3 axillary temp, 91% o2, HR 127, 23 respirations, shallow. Primary MD, pulm MD, and resident made aware. Pulm calling now. No new
orders at this time.
--- NOTE | 2025-05-04 16:53 | W.PN.UPDATE ---
Update Note
Progress Note Update
Discussed with pulmonary situation-on maximal therapy from my perspective.
Not a candidate for noninvasive mechanical ventilation
Is already established at he would not be intubated or be admitted or CPR.
No escalation of care or pressors.
Continue with current level of care
Morphine continue analgesia per primary team.
If develops decompensated hypercapnic respiratory failure, unfortunately may need to proceed to keep him comfortable. I did discuss this with her.
Discussed with primary team.
Obtain chest x-ray and ABG now
Will not escalate to higher level of care as there is no additional interventions that would change the course at this point.
--- NOTE | 2025-05-04 16:59 | W.PN.UPDATE ---
Update Note
Progress Note Update
Was contacted by nurse via [employer] at 4:38PM informing me that patient had shallow breaths, was less responsive, O2 saturation was 90-93% on 5L O2. His heart rate was 127bmp, blood pressure 88/62 after recheck. Temperature 100.3F axillary. I
arrived on the scene to find the patient breathing shallowly and rapidly. His oxygen at that point was steady at 91%. His last dose of morphine had been at 12:51. On exam, he continued to by tachycardic with normal S1 and S2. His lungs sounded
congested with crackling and gurgling. He continues to have thick secretions from his tracheotomy site.
Ordered Chest X-ray and ABG, though the retrieval of the ABG was complicated by the patient's contractures and may have been a VBG in actuality. Given his continued, ongoing and evolving distress, I changed his dose of morphine from 5mg IV Q6H PRN
to 2mg IV Q3H PRN to hopefully address his pain and shortness of breath with smaller, more frequent doses. We will need to monitor him for signs of shortness of breath and distress to ensure that we are appropriately addressing his pain.
Given his escalating care needs, he will need to be transferred to the IMU.
[2025-05-04 17:19] LABS: B.E. 3.5 mmol/L; HCO3 29.5 mmol/L (21-28); O2 Saturation % 83.3 % (94-98); PCO2 51 mmHg (35-48)
[2025-05-04 17:21] LABS: PO2 48 mmHg (83-108)
[2025-05-04] MEDS: LOVENOX 40 MG SC (17:24)
[2025-05-04] MEDS: MORPHINE SULFATE 2 MG IV ×2 (17:26→22:07)
--- NOTE | 2025-05-04 17:44 | W.PN.UPDATE ---
Update Note
Progress Note Update
Called to the bedside at 1600 due to patient being hemodynamically unstable with a systolic BP in the 80s, and a reduced pulse oxygenation ranging from 88-91%. He appeared to be Dr. Gutierrez was also simultaneously contacted who recommended
adjusting the morphine dosage in order to maintain comfort. Called to update her on the status of the patient and had a goals of care discussion. Discussed with how patient is going to be brought to the IMU for further monitoring and care.
shared how she tends to her and her fears about letting him go. She shared that she is still contemplating and weighing the pros and cons of hospice care. I discussed how options are limited in regards to recovery and that this may the
the patient's new baseline. stated that she is in contact with an outpatient hospice service but when asked about specifics she did not address the question and moved onto other topics. She stated that she was going back and forth between
deciding between inpatient hospice and outpatient hospice. I touched on the fact that I believe that the dignity and comfort of the patient will be forefront during hospice and that I know she is considering what would be best for the patient. I
asked the if it would be ok if I could call her periodically to update her on her 's care and she consented to update calls. She stated she would come later in the evening to meet with her and think about what comes next. After a
30 minute discussion I told her that I would keep in touch and that once she sees her we can come up with a plan for how to move forward.
Discussion duration: 25-30 minutes
[2025-05-04] MEDS: ATIVAN 1 MG TUBE (17:52)
[2025-05-04 18:15] VITALS: BP 91/65
[2025-05-04] MEDS: VENTOLIN NEBULES 2.5 MG INH (19:38)
--- NOTE | 2025-05-04 20:00 | PTCARENOTE ---
Received patient from t assessed, [id number]. Pt on trach collar 28% with significant amount of secretions. HR elevated 120-130's, SBP low 100's. Pt also has low grade fevers. patient assessed, see flow sheets. Patients briefly came by to see
patient but left before I could speak with her, asked another nurse why had he been upgraded. Pt is DNR, plan of care ongoing. Will continue to monitor.
--- NOTE | 2025-05-04 20:05 | PTCARENOTE ---
Ongoing conversation with pulmonary, resident, and primary MD about this patient's current clinical status following last note by this RN. Vital signs with repeated low grade fever, tachycardia, and hypotension. Pt unresponsive to verbal and
physical stimuli which is a change from earlier in the shift, low urine output throughout day. Increasing SOB, secretions, and need for suctioning. Significant clinical change throughout the shift for this RN through continuous conversation and
monitoring with resident at bedside often. Unclear determination of current plan, pulm on phone with who wants to hold off on comfort or hospice of this time. requesting no pressors at this time, this RN uncomfortable with pts current
status being appropriate for med surg level of care. Resident in agreement, transfer orders to IMU placed. VBG and CXR obtained bedside on 2N. Pt medicated with PRN morphine for groaning out and s/s of pain/distress. Pt medicated with PRN ativan for
exhibiting anxious symptoms and seizure like activity similar to when pt was first brought in. Report called to NICKI Johnson in IMU. Pt transferred to IMU by this RN with portable defib and pulsox attached to pt for monitoring per transfer protocol. Pt
turned and assessed with IMU RN by this RN, o2 at 90% on 5L via trach collar for transfer, copious secretions coming from old trach site during transfer. Pt resting in bed with little responsiveness in IMU for this RN upon leaving.
[2025-05-04 20:07] VITALS: BP 102/75
[2025-05-04 22:00] VITALS: BP 116/67
[2025-05-04] MEDS: LIPITOR 40 MG TUBE (22:08)
[2025-05-05] VITALS (70 sets, daily range): BP systolic 73–132; BP diastolic 47–94
[2025-05-05] MEDS: NSS 500 IV (00:33)
[2025-05-05] MEDS: TYLENOL/FEVERALL 650 MG RECTAL ×3 (00:33→23:34)
--- NOTE | 2025-05-05 00:42 | W.PN.UPDATE ---
Update Note
Progress Note Update
TT'd to see patient, hypotensive, BP 75/47 (Map 57), HR 133, 93% on 5L trach collar, rectal temp 101.2, accu check 124.
Ordered NSS 500 ml bolus. Rectal tylenol given for fever.
Called and spoke to , she is decided that low blood pressure is due to the Morphine and is insistent that Morphine be stopped and no more given. Tried to educate on reason for morphine and she stated that he did not have these things going
on before he received Morphine. She also asked that Metoprolol be stopped, let her know that patient is not receiving Lopressor.
Reviewed with plan of care, that notes stated no escalation of care and no pressors. is agreeable to IV fluid bolus and wants to see how he does after bolus. Explained to that bolus may not do much for his blood pressure and if she
wants nothing else done, should make patient comfortable. Reviewed that next step would be to start pressors. asked if we could start low dose pressors, explained how pressors worked. She does not want to make patient comfort/hospice at this
time. She wants to try one pressor and see how he does. Will do IV fluid bolus and order Levophed.
[2025-05-05 00:56] LABS: Glucose - Point of Care 124 mg/dl (70-99)
[2025-05-05] MEDS: LEVOPHED 250 IV ×2 (01:33→16:53)
[2025-05-05] MEDS: VENTOLIN NEBULES 2.5 MG INH ×3 (01:34→20:27)
[2025-05-05 05:10] LABS: Hematocrit 29.7 % (39.0-52.0); Hemoglobin 9.3 g/dL (13.0-18.0); Mean Corp Hgb Conc. 31.3 g/dL (33.0-37.0); Mean Corpuscular Volume 111.2 fL (80.0-94.0); Platelet Count 162 10^3/uL (130-400); Red Cell Dist. Width 14.2 % (11.5-14.5)
[2025-05-05 05:36] LABS: Calcium 8.4 mg/dl (8.4-10.2); Carbon Dioxide 29 mmol/L (22-30); Chloride 113 mmol/L (98-107); Estimated Creatinine Clearance 56 ml/min; Glucose 107 mg/dl (70-99); Potassium 3.8 mmol/L (3.5-5.1); Sodium 144 mmol/L (135-145); eGFR > 60.00
[2025-05-05 05:45] LABS: Blood Urea Nitrogen 24 mg/dl (9-20)
[2025-05-05] MEDS: SYNTHROID 75 MCG TUBE (05:54)
[2025-05-05] MEDS: MUCOMYST 20% 2 ML INH ×2 (07:35→20:27)
[2025-05-05] MEDS: PULMICORT 0.5 MG INH ×2 (07:36→20:27)
[2025-05-05] MEDS: SODIUM CHLORIDE 3% FOR INHALATION 1 VIAL INH ×2 (07:38→20:27)
--- NOTE | 2025-05-05 07:43 | PTCARENOTE ---
Rec'd pt this AM. Tachycardic, tachypnic. on 4mcg levo. Appears uncomfortable. Overnight, refused to allow continued pain control with morphine. RN placed ethics consult. Discussed with resident MD at bedside. Sent [employer] text to Nichol Bravo.
--- NOTE | 2025-05-05 08:39 | PTCARENOTE ---
RTC from spouse. She does not believe pt is in end of life pain. She continues to state that his BP was low due to the morphine. RN educated on pt's non verbal indicators of pain that he is currently exhibiting. She does not agree. She then
stated she wanted the levo turned off. RN educated her on the levo protocol and careful tapering. Despite this, she made 2 more requests that RN turn it off, but then stated she understood but that is her request. She does not believe he has any
infections and stated that the hospital is making him worse. RN continues to advocate for the patient and updated Dr. Osuna at [facility]
[2025-05-05] MEDS: FLOMAX 0.4 MG TUBE (09:37)
[2025-05-05] MEDS: ROBITUSSIN 1200 MG TUBE ×2 (09:37→20:52)
[2025-05-05] MEDS: FERROUS SULFATE ORAL LIQUID 300 MG TUBE ×2 (09:37→20:51)
[2025-05-05] MEDS: DESENEX/MITRAZOL/ZEASORB 2 APPLIC TOPICAL (09:41)
[2025-05-05] MEDS: DAKIN'S SOLUTION 0.125% 1/4 STRENGTH 4 ML TOPICAL (09:42)
--- NOTE | 2025-05-05 09:53 | W.PN.HOSP.TC ---
Addendum entered and electronically signed by Armando Arroyo MD 05/05/25 21:24:
Attending Addendum-
I saw and evaluated the patient. I reviewed the resident�s note and agree with findings and plan as documented in the resident�s note. Sub: Patient nonverbal. patient transferred to IMU and started on Levophed overnight. agreed. requesting to
decrease dose and see what happens. called by nursing multiple times re frequent suctioning resp distress and appearing to be in pain. patient having excessive secretions. was febrile and tachy overnight. ROS unable to obtain. Exam: Vitals reviewed
in chart GEN-mod distress HEENT TC in place moderate secretions present, heart RRR no MRG, Lungs crackles at bases abd GJ tube in place, soft NT ND pos BS LE +2 B/L LE edema Neuro unable to follow commands, severely contracted appears uncomfortable
Plan:
#Sepsis
#Aspiration
#sacral decub stage 4/stage I bilateral buttocks/healing right mid lower back and right hip stage 4 PI
#POA
#Chronic bedbound status with contractures/functional quadriplegia
- Wound culture-polymicrobial as expected
- cont wound care
- titrate pressors for MAP > 65
- Blood cx- 1/3-MRSA->staph epi, 2/3-diphtheroids - all likely contaminants
- abx restarted due to fevers covering for likely aspiration
- ID input appreciated -zosyn days #1
- ECHO 04/30- LVEF WNL, no obvious signs of vegetation
- repeat blood cx-NGTD
- WBC now WNL
#Acute exacerbation of seizures in setting of sepsis
#Seizures post anoxic brain injury/Chronic Tremors to RIGHT ARM
- follows with Dr Melissa conrad [facility] [place]
- Continue IV Depakote 875mg tid - home dose
- cont increased Increase Keppra from 750 mg twice daily to 1000 mg twice daily
- appreciate neuro input
# Acute on Chronic hypoxemic respiratory failure
- likely aspirating secretions and tube feeds
- chronically on trach collar with 5 L oxygen
- appreciate pulm input
- cont guaifenesin and suctioning
- cont mucolytics and nebs
- suction device ordered for patient
- poor prognosis appears to have < 6 months survival - hospice appropriate
- not a candidate for mech vent or NIPPV
- appreciate pall care input- monitor over next 24-48 hours and determine course, daily GOC discussions underway
- ethics consult placed
- cont care in IMU
#Dysphagia/GJ tube
-NPO
-tube replaced over weekend
# Urinary Retention
- cont flomax
- cont price
- hisk risk infection with multiple sacral wounds
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
#PE 2023 s/p thrombectomy
#Hypothyroidism- TSH elevated - increased levothyroxine to 75mcg
#Paroxysmal A-fib August 2021
-metoprolol held due to hypotension- restart prior to DC
-not on AC due h/o hem CVA
#Anemia of chronic disease
#Iron deficiency anemia
DVT prophylaxis
Subcu Lovenox
Code- DNR
Dispo-from home with - GOC discussions underway
CC Note
Due to a high probability of clinically significant, life-threatening deterioration, the patient required a high level of preparedness to intervene emergently. I personally spent this critical care time directly and personally managing the patient.
This critical care time included obtaining a history; examining the patient; ordering and review of studies and STAT labs; arranging urgent treatment with development of a management plan; evaluation of patient's response to treatment; reassessment;
and, discussions with other providers- pall care, ethics/pastoral care, ID, pulm
This critical care time was performed to assess and manage the high probability of imminent, life-threatening deterioration that could result in multi-organ failure. It was exclusive of separately billable procedures and treating other patients and
teaching time.
Total critical care time: Approximately 35 minutes
Original Note:
Today's Communication/Plan
-
-Continued goals of care discussions with
-Medical ethics comittee consulted
-Zosyn restarted by ID
-Currently in IMU on 2mcg of levophed
-Prognosis poor - recommend hospice in order to preserve the dignity and comfort of the patient.
Assessment / Plan
Assessment / Plan
Assessment
This is a 59 y/o male with pmhx of quadriplegia, paroxysmal afib, decubitus ulcers, seizure disorder s/p anoxic brain injury taking Keppra (750mg BID) and Depakote (875mg TID) who presented to the ED with increased seizure activity in the setting of
sepsis.
Plan
Sepsis
Unstageable Sacral Decubitus Ulcer
Stage I Bilateral Buttocks and Lower Back Decubitus Ulcer
Stage IV mid lower back pressure ulcer
Stage IV right hip pressure ulcer
-On admission patient was hypotensive at 89/56, febrile at 101.4, HR 105.
-S/p 5L of NSS in the ED, and continued on IV NS at 100cc/hr. He is no longer hypotensive, but unable to definitively call this shock
-Source of infection is most likely secondary to Decubitus ulcers
-He has a history of ulcers positive for MSSA, Pseudomonas, Strep. Progenies, Proteus Mirabilis, Enterococcus faecalis in 2023, and Gayle auris in 2024
-All previously positive blood cultures determined to be due to contaminant from diptheroids and staph epi. D/c'ed Vancomycin 05/02, no role for further antibiotics.
-Given history of c. auris infection, precautions must be continued despite no active MRSA infection.
-Echocardiogram showed no evidence of valvular vegetations
-Continue wound care for his sacral wounds
-Continue to follow cultures
-Zosyn restarted by ID on 05/05/25
-Currently in IMU on 2mcg of Levophed
-Will monitor
Acute Bronchiectasis Flare with Increased Secretions
Irritation of the Skin secondary to above
-Per CT Scan of the Chest/Abdomen/Pelvis: Mild bronchiectasis. New
-Increased secretions requiring regular suctioning by nursing staff, now every hour as of late yesterday/overnight
-Patient now has a bandage in place over his chest as nursing staff noted increased irritation of the skin due to frequently having to clean the skin of his chest following suctioning to remove secretions. Will need to continue to follow to ensure
skin does not experience breakdown.
-Patient is in need of suctioning of tracheostomy site at regular intervals as needed for increased secretions secondary to acute bronchiectasis flare. Suction will help to improve hypoxemia and prevent infections. Patient is nonmobile within the
home. Tracheostomy collar alone is insufficient to address his secretions, trial of scheduled nebulizers and acetylcysteine solution has also not decreased his requirement for suction. Regular suction upon discharge is needed to improve symptoms.
He will not be safe to return home without regular suctioning
-Continue morphine and ativan added yesterday evening as needed for signs of pain/distress including grimacing, thrashing, and screaming
Acute Urinary Retention
-Patient with new acute urinary retention, as he uses a condom catheter at home
-Price is now in place, was placed late in the evening on 05/03
-D/c date currently set to 05/06
-Will monitor
Feeding tube malfunction, resolved
-05/01 nurse noted feeding tube ruptured during attempted flush.
-Goals of care continue to be restorative
-IR consulted 05/01 for repair.Tube was successfully replaced and feedings via tube were resumed on the same day
Acute Exacerbation of Seizures, Resolved
Seizures s/p Anoxic Brain Injury
Functional Quadriplegia
-S/p anoxic brain injury/hemorrhagic CVA and cardiac arrest in 08/2021 at [facility]
-CT Head 08/2021 showed multiple large areas of cerebral infarction bilaterally with areas of hemorrhagic transformation with diffuse cerebral edema, mild left to right midline shift.
-Increased number of seizures despite compliance with medications over the last 5 days likely secondary to sepsis. Was given Ativan 0.5mg at 8PM on 04/26 prior to reporting to the ED. A single dose of acyclovir 20mg/kg was also given
-Outpatient, patient follows with Neurology at [facility] with Dr. Melissa Frost
-Continue Depakote 875mg TID, via feeding tube
-Continue Keppra 1000mg BID, via feeding tube
-Will monitor
History of Current Trach Collar with 5L Oxygen
-Copious trash secretions noted on arrival, and again today. Suctioning requirements increased. Bandage now in place due to skin irritation from frequent cleanings after suction.
-Sputum culture no growth to date
-Continue guaifenesin 600mg BID, though currently being held due to feeding tube malfunction
-Continue mucomyst nebulizer
Oral Thrush
-Noted upon arrival
-S/p one time dose of Diflucan 100mg
Anemia of Chronic Disease
Iron Deficiency Anemia
-Continue to monitor H&H
Paroxysmal Atrial Fibrillation
-HOLD metoprolol due to hypotension
Hypothyroidism
-TSH high at 41
-Continue levothyroxine 75 mcg daily via tube
-Will need repeat testing in 2-4 weeks for medication adjustment
History of Shock Liver/Multisystem Organ Dysfunction/Renal Failure in the setting of COVID19 infection 08/2021
History of PE in 2023 (Per )
Dispo: Prognosis poor. not present at the bedside. Will continue to engage in goals of care discussions as able to. currently not receptive to hospice care which would help ensure the comfort of this patient.
Anticipated Discharge: > 48 hours
Subjective/Interval History
-
Date of Service: May 05, 2025
Met with patient at the bedside. Patient is nonverbal and is unable to answer questions due to acuity. Patient appears visibly uncomfortable in bed. Patient sweating with agitated appearance. Groans when moved. Copious secretions from
tracheostomy.
Objective Data
-
Labs:
Laboratory Results
05/05/25
04:31
WBC 10.3
Hgb 9.3 L
Hct 29.7 L
Plt Count 162
Sodium 144
Potassium 3.8
Chloride 113 H
Carbon Dioxide 29
BUN 24 H
Creatinine 1.2
Glucose 107 H
Calcium 8.4
Vital Signs:
Vital Signs
Temp Pulse Resp BP Pulse Ox
100.3 F 118 26 111/74 93
05/05/25 07:59 05/05/25 07:50 05/05/25 07:50 05/05/25 06:00 05/05/25 07:50
I&O
05/04/25 05/05/25 05/06/25
06:59 06:59 06:59
Intake Total 710 / 710 1125 / 1125
Output Total 1050 / 1050 400 / 400
Balance -340 / -340 725 / 725
Review of Systems
-
Unable to obtain full review of systems at this time due to: Patient Non-verbal
Constitutional: Reports Other (Visibly uncomfortable)
Physical Exam
-
General: Other (Patient is laying in bed with his eyes rolled upwards. He is nonresponsive to the sound of my voice or touch. He does not appear comfortable.)
HEENT: Normocephalic and Tracheotomy (5L O2. The site below the tracheotomy is now covered in a medical bandage as the skin was becoming inflamed from repeated cleaning post suction)
Cardiac: Regular Rhythm and Carotid Pulses
GI: Other (GJ Tube in place, tube feed currently underway.)
Skin: Warm and Dry
Neuro: Negative Awake
--- NOTE | 2025-05-05 10:02 | W.PN.ID1 ---
Date of Service
Date of Service: May 05, 2025
Today's Communication
Restart antibiotics.
Assessment / Plan
Staph epidermidis bacteremia (1 of 3 sets)
- Contaminant
- previously reported as MRSA but corrected.
Diphtheroid bacteremia 2 of 3 sets
-contaminants
Leukocytosis
- resolved
Fever - returned.
Seizures
Suspected aspiration PNA
Paroxysmal Atrial Fibrillation
Anoxic Brain Injury
Multiple Stage IV Pressure Injuries
Severe contractures
Anemia of Chronic Disease and Iron Deficiency Anemia
Seizure Disorder
Esophagitis / Esophageal Ring
Recommendations:
Ucx neg.
CXR and CT chest neg for focal dense consolidation.
Repeat blood culture with growth on day 5; suspect contaminant
TTE no gross veg.
Case discussed with primary service. Family at this point in time would like to continue with aggressive measures.
Will reinitiate antibiotic therapy. Begin Zosyn 3.375 gm IV q.6 hours
Continue local care to wounds.
Overall long-term prognosis poor to nil. Patient unlikely to ever have any improved quality of life given significant comorbidities at this point.
����������������������������������������������������������
Chief Complaint
-: Bacteremia
Subjective / Review of Systems
Patient seen and examined. Chart reviewed and events overnight noted. Patient now on pressors, but ostomy output is very involved in deciding on which modalities to escalate with, which ones not to. Fevers noted overnight.
Vital Signs / Physical Exam
Vital Signs
Vital Signs
Temp Pulse Resp BP Pulse Ox
100.3 F 118 26 111/74 93
05/05/25 07:59 05/05/25 07:50 05/05/25 07:50 05/05/25 06:00 05/05/25 07:50
Physical Exam
Constitutional: Comfortable and Chronically Ill
Eyes: Sclera Anicteric
Cardiovascular: Regular Rate and S1/S2
Pulmonary: Rhonchi and Other (Trach collar in place)
Gastrointestinal: Soft, Non Tender and Non Distended
Musculoskeletal: Other (contracted extremities)
Wound: Other (Wound dressed.)
Neurological: Awake (Eyes open) and Other (Responsive to touch. Nonverbal.)
Objective Data
Lab Data
Lab Results
05/05/25 04:31
05/05/25 04:31
PT 16.2 Sec (11.4-14.6) H 04/28/25 03:58
INR 1.27 04/28/25 03:58
APTT 25.7 Sec (23.4-35.0) 04/28/25 03:58
Estimated Creat Clear 56 ml/min 05/05/25 04:31
Lactic Acid Cancelled 04/27/25 20:15
Total Bilirubin 0.2 mg/dl (0.2-1.3) 05/02/25 05:40
AST 18 U/L (17-59) 05/02/25 05:40
ALT 10 U/L (0-50) 05/02/25 05:40
Alkaline Phosphatase 59 U/L (38-126) 05/02/25 05:40
Most recent labs reviewed.
Micro Results:
04/27/25 16:18 Blood Culture - Final
Blood/Venous Gram Stain - Final
04/27/25 16:53 Blood Culture - Preliminary
Blood/Venous Staphylococcus epidermidis
Diptheroids
Gram Stain - Final
05/01/25 06:43 Blood Culture - Preliminary
Blood/Venous No Growth in 4 days- Final report to follow
05/01/25 05:59 Blood Culture - Preliminary
Blood/Venous No Growth in 4 days- Final report to follow
05/02/25 05:40 Blood Culture - Preliminary
Blood/Venous No Growth in 72 hours- Final report to follow
04/29/25 18:31 Blood Culture - Final
Blood/Venous No Growth - Final Report
04/27/25 16:18 Blood Culture - Final
Blood/Venous Diptheroids
Gram Stain - Final
04/27/25 20:01 Wound Culture - Final
Buttock Gram negative bacilli
Streptococcus species
Diptheroids
Additional testing on request
Gram Stain - Final
04/28/25 09:52 Respiratory Culture - Final
Endotracheal Gram negative bacilli
Additional testing on request
Gram Stain - Final
04/27/25 18:11 Urine Culture - Final
Urine NO GROWTH
04/27/25 16:53 Influenza Types A & B (MAYELA) - Final
Nasal Swab Negative for Influenza A & B, NAAT
Negative results must be combined with clinical observations
and patient history.
Nucleic Acid Amplification test (NAAT)performed on the
[employer] platform.
Imaging:
04/27/2025 CT chest/abdomen/pelvis with IV contrast: no acute disease in the chest. Minimal pulmonary fibrosis. Mild bronchiectasis. Moderate emphysematous disease. Findings suggestive of fecal impaction, progressed. Two 6 mm gallstones, stable.
Mild diffuse bladder wall thickening which can be seen in cystitis and bladder outlet obstruction. Please see full dictation for additional detail.
Care Review
Plan reviewed with: Physician (Resident)
[2025-05-05] MEDS: KEPPRA 1000 MG TUBE ×2 (10:07→20:51)
[2025-05-05] MEDS: DEPAKENE 875 MG TUBE ×3 (10:07→20:51)
--- NOTE | 2025-05-05 12:12 | PTCARENOTE ---
Pt febrile, rectal tylenol given as ordered. Efforts to taper Levo down to 3mcg unsuccessful, pt requiring 4mcg at this time to keep Systolic BP greater than 90. Grimaces, moans when turning and completing wound care. Updated primary team.
[2025-05-05 12:17] LABS: Glucose - Point of Care 127 mg/dl (70-99)
[2025-05-05] MEDS: ZOSYN 50 IV ×3 (12:40→23:34)
--- NOTE | 2025-05-05 13:36 | W.PN.PUL3 ---
Today's Communication / Plan
-
went off vasopressors
Antibiotics were started
Continue secretion clearance interventions
Narcotics for pain-monitor respiratory status closely.
Limited interventions available for this patient.
Hospice appropriate. Discussions are ongoing.
Assessment
-
Impression:
#Febrile illness - due to MRSE bacteremia
#Fecal impaction in rectum
#Sacral decubitus ulcer (chronic)
#Leukocytosis
#Chronic anemia
#Pulmonary fibrosis
#History of eosinophilia (absolute eosinophil count 1200 on 03/16/2025; was as high as 1500 on 06/18/2024)
#Right upper lobe bleb measuring 4.9 cm with bilateral bronchiectasis
#Acute flare of bronchiectasis with increased secretions
#Hx of seizures following hemorrhagic stroke (2021)
#History of COVID-19 pneumonitis complicated by cardiac arrest (2021)
#Paroxysmal A-fib
Plan:
Unfortunately, patient has clinically deteriorated. More difficulty clearing secretions, hypotensive requiring vasopressors, now febrile. Critically ill.
Chest x-ray 05/04/2025: Low lung volumes. Difficult to interpret.
-
- Continue with secretion clearance interventions-has thick secretions-likely chronic problem-Perhaps acute component due to recurrent microaspiration and possibly new infection.
- Upon discharge tracheal stoma should be suction every 2-3 hours by nursing.
-Need to keep up with airway suctioning otherwise he will be at high risk of plugging
-- He has a Hx of hypercapnia --> blood gas checked on AM of 04/29 and no significant hypercapnia seen with pH 7.36, pCO2 48 compensated chronic hypercapnic respiratory failure.-
-
- Continue mucolytics.
- mucomyst 20% BID and nebulized albuterol to help him expectorate. Patient has a weak cough effort.
- 3% saline nebs bid--> while in the hospital.
- prn nebulized bronchodilators - not currently bronchospastic
- Given his elevated eosinophils in setting of bronchiectasis and large amounts of mucous, Continue nebulized pulmicort; on recent CT Chest on 04/27/2025, no evidence of bacterial pneumonia
- Maintain SpO2 >90-94% with trach collar at 28%
-Difficult situation as despite maximal secretion clearance interventions patient has weak cough effort and suctioning will be maintained.
-After discussing with she would like to limit suctioning.
She understands that this could worsen his pulmonary condition and put him at risk for mucous plugging and hypercapnia with respiratory failure.
-
Discussed with infectious disease antibiotics were started 05/05/2025 due to fevers
Cultures were sent
-
- Continue tube feeds now that his G-J tube exchanged during this admission.
- Suspect has recurrent microaspiration's. Tube feedings regurgitation.
- Aspiration precautions keeping HOB >30-45�
-
-Shock due to sepsis likely, dehydration and narcotic/sedatives for increased work of breathing and pain.
On low-dose Levophed. Patient would like to discontinue this medication.
- Neurology consulted and recs appreciated
- CT head performed on 04/28 showed no acute intracranial hemorrhage with multiple areas of calcification within both hemispheres likely from prior hemorrhagic CVAs
- Defer AEDs to Neuro - currently on valproate + Keppra
- Initial Fever and leukocytosis resolved.
2 blood cultures from 04/27 are positive --> both are growing diphtheroids and 1 blood culture is growing MRSA; surveillance blood cultures collected on 04/29 and 05/01 both show NGTD
- TTE performed on 04/30 does not show any evidence of vegetation
- Depending if surveillance blood cultures are positive, he may need a DANIE to further evaluate for endocarditis
- Obtain set of daily surveillance blood Cx, as requested by ID
- He was malodorous when he was first brought in and continues to have a generalized foul odor coming from body
- Wound care to sacrum and other chronic wounds- may need general surgery consult depending on wound care recs
- Follow up wound Cx from buttock (GNR x 3 morphologies, Streptococcus spp and diphtheroids x 2 morphologies)
- Follow up urine Cx (NGTD)
- Secretions sent for culture from tracheal stoma (growing 3 different morphologies of moderate GNR --> likely colonization; follow-up species)
- Defer ABx to primary team + ID --> had been on Vanco/Zosyn however Zosyn has now been discontinued, and last day of IV vanc (05/02)
-Antibiotics were started 05/05/2025 due to fevers/hypotension . See above.
Would focus on comfort. Discussed with primary team. Continue supportive care
- DVT ppx: LMWH
Code status: DNR/DNI
Poor quality of life; recommend GOC discussion with family-patient is hospice appropriate.
High risk for readmission, poor cough effort, poor secretion clearance.
-
Dr. Arias discussed with over the phone 05/04/2025 discussed in worsening clinical respiratory situation. Difficulty clearing secretions despite maximal secretion clearance interventions, poor cough effort. Ongoing microaspiration with thick
secretions.
Unfortunately not much to offer from the pulmonary perspective, this patient is hospice appropriate in my opinion. She understands that he would like to continue supportive care for now.
Poor prognosis overall.
-
Critical care randi 35 minutes, discussing with the primary team, bedside evaluation, discussed with the family members, reviewing laboratories . multiple conversations with family.
Data:
CT Chest/Abd/Pelvis with IV contrast 04/27/2025:
No acute disease of the chest.
Minimal pulmonary fibrosis. New., Mild bronchiectasis. New. Moderate emphysematous disease. Stable
Findings suggestive of fecal impaction. Progressed
Two 6 mm gallstones. Stable
Mild diffuse bladder wall thickening. This can be seen with cystitis and bladder outlet obstruction. New
Subjective Data
-
Date of Service:
Date of Service: May 05, 2025
Chief Complaint: Pulmonary Follow Up
Subjective:
patient nonverbal
Uncomfortable looking
Significant secretions on tracheotomy stoma
Review of Systems
General: Other ( unable to obtain nonverbal)
Objective Data
Data Reviewed
Vital Signs / I&O / Oxygen:
Vital Signs
Temp Pulse Resp BP Pulse Ox
98.4 F 118 30 93/58 95
05/05/25 11:34 05/05/25 12:11 05/05/25 12:11 05/05/25 12:11 05/05/25 12:44
Intake and Output
05/04/25 05/05/25 05/06/25
06:59 06:59 06:59
Intake Total 710 / 710 1125 / 1125
Output Total 1050 / 1050 400 / 400
Balance -340 / -340 725 / 725
SaO2 95
Nasal Cannula flow liters per 10
minute
Physical Exam
General: Respiratory Distress (negative mild at rest--? Baseline) and Chills (negative)
HEENT: Normocephalic, Anicteric and Other (Tracheal stoma with yellow secretions.)
Cardiovascular: S1-S2 and Peripheral Edema (Trace LE edema bilaterally)
Respiratory: Wheeze (negative), Crackles (negative), Rhonchi ( bilateral), Non-Labored Respirations and Stridor (negative)
GI: Soft, Non Distended, Non Tender, Normal Bowel Sounds and Feeding Tube (hole seen in tubing)
Neurology: Tremors (negative), Non Verbal and Other (Contracted lower extremities)
Skin: Warm, Dry, Cyanosis (negative) and Other (contracted limbs)
Labs/Micro/Reports
Lab Data
05/05/25 04:31
05/05/25 04:31
Laboratory Results
05/04/25
17:10
pH 7.37
pCO2 51 H
pO2 48 L*
HCO3 29.5 H
O2 Delivery Level
Microbiology
04/27/25 16:18 Blood/Venous Blood Culture - Final
04/27/25 16:18 Blood/Venous Gram Stain - Final
04/27/25 16:53 Blood/Venous Blood Culture - Preliminary
Staphylococcus epidermidis
Diptheroids
04/27/25 16:53 Blood/Venous Gram Stain - Final
05/01/25 06:43 Blood/Venous Blood Culture - Preliminary
No Growth in 4 days- Final report to follow
05/01/25 05:59 Blood/Venous Blood Culture - Preliminary
No Growth in 4 days- Final report to follow
05/02/25 05:40 Blood/Venous Blood Culture - Preliminary
No Growth in 72 hours- Final report to follow
04/29/25 18:31 Blood/Venous Blood Culture - Final
No Growth - Final Report
04/27/25 16:18 Blood/Venous Blood Culture - Final
Diptheroids
04/27/25 16:18 Blood/Venous Gram Stain - Final
04/27/25 20:01 Buttock Wound Culture - Final
Gram negative bacilli
Streptococcus species
Diptheroids
Additional testing on request
04/27/25 20:01 Buttock Gram Stain - Final
04/28/25 09:52 Endotracheal Respiratory Culture - Final
Gram negative bacilli
Additional testing on request
04/28/25 09:52 Endotracheal Gram Stain - Final
--- NOTE | 2025-05-05 13:48 | CHAP ---
Ethics consult received, spoke with residents and Dr. Arroyo and RN, Georgina. Phone call placed to to offer emotional and spiritual support from Pastoral [facility]. She asked that I meet her here at the hospital tomorrow to offer prayer,
understood that my hours are 8am-4:30pm, said she'd contact me when she arrives at the hospital. Have alerted ethics panel that we may convene in the next day or two, depending on patient situation in the intervening time.
--- NOTE | 2025-05-05 13:50 | CM ---
Following up on Patient. RN stated that she put in an ethics consult. Patient's blood pressure, his pain level is high, and he is very hypotensive, thus there is not well and there is the concern if his survival at this time.
PLAN: TBD, Patient was at home being cared for by and [facility].
--- NOTE | 2025-05-05 15:13 | W.CON.PAL ---
Consultation
-
Date/Time Consultation Requested: 05/04
Date/Time Consultation Performed: 05/05
Performing Provider: Reyna Hill
Reason for Consult: Goals of Care Discussion
Reason for Admission
Illness Course/HPI
59 year old M with PMH of COVID PNA c/b cardiac arrest and subsequent anoxic brain injury, now with multiple wounds, trach, PEG. Seen previously by [facility] in August. Admitted with seizure activity. Course complicated by hypotension, sepsis of unclear
source. Patient had infectious workup which was negative, was cleared to go home then decompensated. Now in ICU on pressors, again with fevers and hypotension.
Per char review, multiple conversations with patients Karyna about hospice and comfort care and she is not willing to accept this. Was agreeable to no escalation but care was eescalated overnight to start pressors. Ethics consult was also
placed as feels morphine is making his BP low and asking to stop this but patient is visibly uncomfortable. also only comes to the hospital later in day when team is not around.
Spoke with patients Karyna via phone. Extensive 50 minute conversation. Karyna is struggling with the fact that Mychal has been sick like this many times and has been told he is dying, only for him to come back and be his normal self and not .
She understands his normal is not everyone elses normal, but she is not ready to just 'pull the plug' if theres a chance he can get better and come home. Upset because she didnt want him hospitalized but feels she was forced. Discussed his
escalation of care - she didnt want to do pressors, also didnt understand it wasnt a 'one time shot' of meds but a continuous infusion. When i asked if she would want this increased if needed, she said she would need to think about it. Says she
didnt think he would need BP medication because he 'doesnt have heart problems'. A lot of education provided to Karyna about the reasoning for his hypotension being likely infection related although she feels its from morphine. We discussed reasons
for morphine and she understands he needs it, felt like he was getting too much. Explained that at the time of our conversation, he had not received any morphine since 10pm which was 14 hours prior and that the dose was low and not sometihng that
would cause a large decrease in BP to the point of needing pressors.
Her goal is to get him home, and feels hospice is appropriate but 'on her terms' - meaning continue seizure meds, etc. Discussed that some hospice agencies will do things that others will not but that he is too unstable at the moment to travel.
Further discussed plans for care from here - asking if pressors can be removed or lowered. Explained he was on a low dose, and if we removed he could possibly drop his BP and so would need to have a plan in place for what to do - ie do we
restart them or make him comfortable at that time? She understands the need for a plan and is going to think about this and let team know. Discussed seeing how he does over the next 1-2 days and if he continues to have hypotension requiring bp
support, with no infectious source identified, that we would be able to say that he is in fact in his dying process and would need to come up with a plan from there. SHe expressed understanding.
Will touch base with her later this week and follow medical progress.
Goals of Care Discussion
-
Individuals Present for Discussion & Relationship to Patient:
see HPI
Objective Data
-
Objective Data:
Vital Signs
Temp Pulse Resp BP Pulse Ox
98.4 F 118 30 93/58 95
05/05/25 11:34 05/05/25 12:11 05/05/25 12:11 05/05/25 12:11 05/05/25 12:44
Laboratory Results
05/05/25 04:31
05/05/25 04:31
PT 16.2 Sec (11.4-14.6) H 04/28/25 03:58
INR 1.27 04/28/25 03:58
APTT 25.7 Sec (23.4-35.0) 04/28/25 03:58
Hemoglobin A1c 5.1 % (4.0-5.6) 04/29/25 03:33
Total Protein 5.4 g/dl (6.3-8.2) L 05/02/25 05:40
Albumin 2.3 g/dl (3.5-5.0) L 05/02/25 05:40
Free T4 0.79 ng/dl (0.78-2.19) 04/27/25 16:18
Urine Color Yellow 04/27/25 18:11
Urine Clarity Clear (Clear) 04/27/25 18:11
Urine pH 7.0 (5.0-9.0) 04/27/25 18:11
Ur Specific [place] 1.010 (<1.030) 04/27/25 18:11
Urine Ketones Negative (Negative) 04/27/25 18:11
Urine Bilirubin Negative (Negative) 04/27/25 18:11
Palliative Performance Scale
Palliative Performance Scale:
PPS Level Ambulation Activity & Evidence of Disease Self Care Intake Conscious Level
100% Full Normal Activity & Work; Full Intake Full
No Evidence of Disease
90% Full Normal Activity & Work; Full Normal Full
Some Evidence of Disease
80% Full Normal Activity with Effort Full Normal or Full
Some Evidence of Disease Reduced
70% Reduced Unable Normal Job/Work Full Normal or Full
Significant Disease Reduced
60% Reduced Unable Hobby/Housework Occasional Normal or Full or Confusion
Significant Disease Assistance Reduced
50% Mainly Sit/Lie Unable to do Any Work Considerable Normal or Full or Confusion
Extensive Disease Assistance Req'd Reduced
40% Mainly in Bed Unable to do Most Activity Mainly Assistance Normal or Full or Drowsy;
Extensive Disease Reduced +/- Confusion
30% Totally Bed Unable to do Any Activity Total Care Normal or Full or Drowsy;
Bound Extensive Disease Reduced +/- Confusion
20% Totally Bed Bound Unable to do Any Activity Total Care Minimal to Full or Drowsy;
Extensive Disease Sips +/- Confusion
10% Totally Bed Bound Unable to do Any Activity Total Care Mouth Care Drowsy or Coma;
Extensive Disease Only +/- Confusion
0%
PPS Score Level:
Physical Exam
-
General: Appears in Distress and Appears Chronically Ill
HEENT: Normocephalic
Assessment / Plan
-
Assessment/Plan:
59 year old M with SABIHA
- see HPI for GOC discussion with
Care Reviewed
Data Reviewed
EKG Tracings: Report Reviewed
Chest X ray: Report Reviewed
Medical Tests: I reviewed
Reviewed with: Patient, Family and Physician
[2025-05-05] MEDS: LOVENOX 40 MG SC (17:20)
--- NOTE | 2025-05-05 17:28 | PTCARENOTE ---
Pt remains on levo. MD changed order for goal to MAP greater than 65. Pt with copious secretions from neck stoma. wound care completed. Pt appears in pain during wound care and turning.
[2025-05-05] MEDS: LIPITOR 40 MG TUBE (20:52)
[2025-05-06] VITALS (38 sets, daily range): BP systolic 92–127; BP diastolic 61–95
--- NOTE | 2025-05-06 00:03 | PTCARENOTE ---
While repositioning, Pt appeared to be having an absence seizure. R deviated gaze, no threat noted; Facial twitching. Lasted ~ 20 seconds. Noted that Pt felt warm, recent axillary temp was 99.3. Temp checked rectally = 100.8. Rectal Tylenol
administered. Will continue to monitor and assess.
[2025-05-06] MEDS: SYNTHROID 75 MCG TUBE (05:23)
[2025-05-06] MEDS: ZOSYN 50 IV ×3 (05:23→18:14)
[2025-05-06 06:10] LABS: Hematocrit 26.6 % (39.0-52.0); Hemoglobin 8.1 g/dL (13.0-18.0); Mean Corp Hgb Conc. 30.5 g/dL (33.0-37.0); Mean Corpuscular Volume 110.4 fL (80.0-94.0); Platelet Count 143 10^3/uL (130-400); Red Cell Dist. Width 14.2 % (11.5-14.5)
[2025-05-06 06:39] LABS: Blood Urea Nitrogen 21 mg/dl (9-20); Calcium 8.2 mg/dl (8.4-10.2); Carbon Dioxide 30 mmol/L (22-30); Chloride 111 mmol/L (98-107); Estimated Creatinine Clearance 56 ml/min; Glucose 104 mg/dl (70-99); Potassium 3.9 mmol/L (3.5-5.1); Sodium 142 mmol/L (135-145); eGFR > 60.00
--- NOTE | 2025-05-06 07:30 | W.PN.HOSP.TC ---
Addendum entered and electronically signed by Armando Arroyo MD 05/06/25 20:03:
Attending Addendum-
I saw and evaluated the patient. I reviewed the resident�s note and agree with findings and plan as documented in the resident�s note. Sub: Patient nonverbal. patient having excessive secretions. afebrile but tachycardic. having forehead twitching.
ROS unable to obtain. Exam: Vitals reviewed in chart GEN-mod distress HEENT TC in place moderate secretions present b/l forehead twitching present, heart RRR no MRG, Lungs diffuse wet rhonchi b/l abd GJ tube in place, soft NT ND pos BS LE +2 B/L LE
edema Neuro unable to follow commands, severely contracted appears uncomfortable
Plan:
#Sepsis
#Aspiration
#sacral decub stage 4/stage I bilateral buttocks/healing right mid lower back and right hip stage 4 PI
#POA
#Chronic bedbound status with contractures/functional quadriplegia
- Wound culture-polymicrobial as expected
- cont wound care
- NO further pressos to be used
- Blood cx- 1/3-MRSA->staph epi, 2/3-diphtheroids - all likely contaminants
- ID input appreciated -abx restarted - zosyn day #2 transition to course of Augmentin as OP
- ECHO 04/30- LVEF WNL, no obvious signs of vegetation
- repeat blood cx-NGTD
- WBC now WNL
- poor prognosis
#Acute exacerbation of seizures in setting of sepsis
#Seizures post anoxic brain injury/Chronic Tremors to RIGHT ARM
- follows with Dr Melissa conrad neuro [place]
- Continue IV Depakote 875mg tid - home dose
- cont increased Increase Keppra from 750 mg twice daily to 1000 mg twice daily
- appreciate neuro input
# Acute on Chronic hypoxemic respiratory failure
- likely aspirating secretions and tube feeds
- chronically on trach collar with 5 L oxygen
- appreciate pulm input
- cont guaifenesin and suctioning
- cont mucolytics and nebs
- suction device ordered for patient
- poor prognosis appears to have < 6 months survival - hospice appropriate
- not a candidate for mech vent or NIPPV
- appreciate pall care input- monitor over next 24-48 hours and determine course, daily GOC discussions underway
- ethics consult canceled after discussion with POA
- cont care in IMU
#Dysphagia/GJ tube
-NPO
-tube replaced over weekend
# Urinary Retention
- cont flomax
- cont price
- hisk risk infection with multiple sacral wounds
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
#PE 2023 s/p thrombectomy
#Hypothyroidism- TSH elevated - cont increased levothyroxine to 75mcg
#Paroxysmal A-fib August 2021
-metoprolol held due to hypotension
-not on AC due h/o hem CVA
#Anemia of chronic disease
#Iron deficiency anemia
DVT prophylaxis
Subcu Lovenox
Code- DNR DNH on DC
Dispo-from home with - dc on pall care in am with CM made aware
ACP
Patient unable to consent to discuss, lengthy discussion had with POA present, time spent explanation of advance directives, changes in health status, patient�s health care wishes if the patient becomes unable to make health decisions, goals of
care, code status, and prognosis, POA expresses understanding of futility of care but not able to make decision on hospice at this time.
-plan to DC home with on palliative care bridge to hospice in AM
-no further pressors
-DNH on DC
-cont comfort based treatment strategy to maintain dignity- d/w pastoral care and nursing present - 20 minutes
Time spent coordinating care, review of plan of care with resident, personally reviewed previous records in EMR, med rec, labs, radiology, d/w nursing, CM pastoral care palliative care and family total time documented is exclusive of any additional
time listed that was spent in advance care planning discussion -�51 minutes
Original Note:
Today's Communication/Plan
-
Patient still visibly uncomfortable and has not received morphine since 05/04/25
Plan for goals of care discussion with in person today
Continue antibiotics
Assessment / Plan
Assessment / Plan
Assessment:
This is a 59 y/o male with pmhx of quadriplegia, paroxysmal afib, decubitus ulcers, seizure disorder s/p anoxic brain injury taking Keppra (750mg BID) and Depakote (875mg TID) who presented to the ED with increased seizure activity in the setting of
sepsis.
Plan:
Sepsis
Unstageable Sacral Decubitus Ulcer
Stage I Bilateral Buttocks and Lower Back Decubitus Ulcer
Stage IV mid lower back pressure ulcer
Stage IV right hip pressure ulcer
-On admission patient was hypotensive at 89/56, febrile at 101.4, HR 105.
-S/p 5L of NSS in the ED, and continued on IV NS at 100cc/hr. He is no longer hypotensive, but unable to definitively call this shock
-Source of infection is most likely secondary to Decubitus ulcers
-He has a history of ulcers positive for MSSA, Pseudomonas, Strep. Progenies, Proteus Mirabilis, Enterococcus faecalis in 2023, and Gayle auris in 2024
-All previously positive blood cultures determined to be due to contaminant from diptheroids and staph epi. D/c'ed Vancomycin 05/02, no role for further antibiotics.
-Given history of c. auris infection, precautions must be continued despite no active MRSA infection.
-Echocardiogram showed no evidence of valvular vegetations
-Continue wound care for his sacral wounds
-Continue to follow cultures
-Zosyn restarted by ID on 05/05/25
-Currently in IMU on 2mcg of Levophed
-Patient prognosis poor - Palliative care consulted and they discussed the patient's hospital course and extensive education was provided to the about the use of pressors for hemodynamic instability and morphine for comfort.
Acute Bronchiectasis Flare with Increased Secretions
Irritation of the Skin secondary to above
-Per CT Scan of the Chest/Abdomen/Pelvis: Mild bronchiectasis. New
-Increased secretions requiring regular suctioning by nursing staff, now every hour as of late yesterday/overnight
-Patient now has a bandage in place over his chest as nursing staff noted increased irritation of the skin due to frequently having to clean the skin of his chest following suctioning to remove secretions. Will need to continue to follow to ensure
skin does not experience breakdown.
-Patient is in need of suctioning of tracheostomy site at regular intervals as needed for increased secretions secondary to acute bronchiectasis flare. Suction will help to improve hypoxemia and prevent infections. Patient is nonmobile within the
home. Tracheostomy collar alone is insufficient to address his secretions, trial of scheduled nebulizers and acetylcysteine solution has also not decreased his requirement for suction. Regular suction upon discharge is needed to improve symptoms.
He will not be safe to return home without regular suctioning
-Continue morphine and ativan added yesterday evening as needed for signs of pain/distress including grimacing, thrashing, and screaming
Acute Urinary Retention
-Patient with new acute urinary retention, as he uses a condom catheter at home
-Price is now in place, was placed late in the evening on 05/03
-D/c date currently set to 05/06
-Will monitor
Feeding tube malfunction, resolved
-05/01 nurse noted feeding tube ruptured during attempted flush.
-Goals of care continue to be restorative
-IR consulted 05/01 for repair.Tube was successfully replaced and feedings via tube were resumed on the same day
Acute Exacerbation of Seizures, Resolved
Seizures s/p Anoxic Brain Injury
Functional Quadriplegia
-S/p anoxic brain injury/hemorrhagic CVA and cardiac arrest in 08/2021 at [facility]
-CT Head 08/2021 showed multiple large areas of cerebral infarction bilaterally with areas of hemorrhagic transformation with diffuse cerebral edema, mild left to right midline shift.
-Increased number of seizures despite compliance with medications over the last 5 days likely secondary to sepsis. Was given Ativan 0.5mg at 8PM on 04/26 prior to reporting to the ED. A single dose of acyclovir 20mg/kg was also given
-Outpatient, patient follows with Neurology at [facility] with Dr. Melissa Frost
-Continue Depakote 875mg TID, via feeding tube
-Continue Keppra 1000mg BID, via feeding tube
-Will monitor
History of Current Trach Collar with 5L Oxygen
-Copious trash secretions noted on arrival, and again today. Suctioning requirements increased. Bandage now in place due to skin irritation from frequent cleanings after suction.
-Sputum culture no growth to date
-Continue guaifenesin 600mg BID, though currently being held due to feeding tube malfunction
-Continue mucomyst nebulizer
Oral Thrush
-Noted upon arrival
-S/p one time dose of Diflucan 100mg
Anemia of Chronic Disease
Iron Deficiency Anemia
-Continue to monitor H&H
Paroxysmal Atrial Fibrillation
-HOLD metoprolol due to hypotension
Hypothyroidism
-TSH high at 41
-Continue levothyroxine 75 mcg daily via tube
-Will need repeat testing in 2-4 weeks for medication adjustment
History of Shock Liver/Multisystem Organ Dysfunction/Renal Failure in the setting of COVID19 infection 08/2021
History of PE in 2023 (Per )
Dispo: Prognosis poor. not present at the bedside. Will continue to engage in goals of care discussions as able to. currently not receptive to hospice care which would help ensure the comfort of this patient.
Anticipated Discharge: > 48 hours
Subjective/Interval History
-
Date of Service: May 06, 2025
Met with patient at the bedside. Patient is visibly uncomfortable and breathing loudly with his mouth open. Perspiration seen around his mouth and his face. Fewer secretions seen.
Objective Data
-
Labs:
Laboratory Results
05/06/25
05:57
WBC 8.3
Hgb 8.1 L
Hct 26.6 L
Plt Count 143
Sodium 142
Potassium 3.9
Chloride 111 H
Carbon Dioxide 30
BUN 21 H
Creatinine 1.2
Glucose 104 H
Calcium 8.2 L
Vital Signs:
Vital Signs
Temp Pulse Resp BP Pulse Ox
98.6 F 100 26 107/64 95
05/06/25 02:40 05/06/25 07:51 05/06/25 07:51 05/06/25 07:00 05/06/25 07:51
I&O
05/05/25 05/06/25 05/07/25
06:59 06:59 06:59
Intake Total 1125 / 1125 1300 / 1300
Output Total 400 / 400 750 / 750
Balance 725 / 725 550 / 550
Review of Systems
-
Unable to obtain full review of systems at this time due to: Patient Non-verbal
Constitutional: Reports Other (Visibly uncomfortable)
Physical Exam
-
General: Other (Patient is laying in bed with his eyes rolled upwards. He is nonresponsive to the sound of my voice or touch. He does not appear comfortable.)
HEENT: Normocephalic and Tracheotomy (5L O2. The site below the tracheotomy is now covered in a medical bandage as the skin was becoming inflamed from repeated cleaning post suction)
Cardiac: Regular Rhythm and Carotid Pulses
GI: Other (GJ Tube in place, tube feed currently underway.)
Skin: Warm and Dry
Neuro: Negative Awake
[2025-05-06] MEDS: PULMICORT 0.5 MG INH ×2 (07:48→20:21)
[2025-05-06] MEDS: SODIUM CHLORIDE 3% FOR INHALATION 1 VIAL INH ×2 (07:48→20:21)
[2025-05-06] MEDS: VENTOLIN NEBULES 2.5 MG INH ×2 (07:48→20:22)
[2025-05-06] MEDS: MUCOMYST 20% 2 ML INH ×2 (07:48→20:21)
[2025-05-06] MEDS: DAKIN'S SOLUTION 0.125% 1/4 STRENGTH 473 ML TOPICAL (10:04)
[2025-05-06] MEDS: DEPAKENE 875 MG TUBE ×3 (10:08→22:05)
[2025-05-06] MEDS: DESENEX/MITRAZOL/ZEASORB 1 APPLIC TOPICAL (10:10)
[2025-05-06] MEDS: FERROUS SULFATE ORAL LIQUID 300 MG TUBE ×2 (10:11→19:41)
[2025-05-06] MEDS: FLOMAX 0.4 MG TUBE (10:11)
[2025-05-06] MEDS: KEPPRA 1000 MG TUBE ×2 (10:12→19:41)
[2025-05-06] MEDS: ROBITUSSIN 1200 MG TUBE ×2 (10:12→19:41)
--- NOTE | 2025-05-06 13:26 | WOUNDNOTE ---
LEFT HIP/SACRAL COCCYX
--- NOTE | 2025-05-06 13:26 | WOUNDNOTE ---
RIGHT LOWER LEG
--- NOTE | 2025-05-06 13:28 | WOUNDNOTE ---
LEFT BACK and SACRAL COCCYX
--- NOTE | 2025-05-06 13:40 | WOUNDNOTE ---
WOC RN NOTE: Patient visited today to follow up on wounds. Care given by this filing writer and 2 student nurses. During wound care incontinence care was provided for several loose stools. Patient had 2 episodes of trying to clear thick secretions from
trach stoma and suction was provided. Please see worklist for wound details and measurements. Sacral skin appears improved since last assessment on 04/28. Will recommend the use of clear barrier ointment to sacral skin. MASD noted to groin/thighs due
to contractures. A think layer of antifungal powder and Calazime ointment was applied to areas of MASD. Stage 4 PI to mid lower back and right hip appear stable from prior assessment. Right lower leg with newly epithelized skin. Staff may use clear
barrier ointment around trach site as needed, as this areas was slightly red. Protective foam applied to chest to protect skin from trach humidifier. Heels and elbows intact and new foam was applied to these areas. Patient currently receiving
nutrition via PEG tube feeds. Patient remains on [facility] Air and turning schedule. A wedge is also in use for repositioning. Patient has several comorbidities and GOC discussion are ongoing. Per chart review patient is hospice appropriate.
Wounds may worsen and new wounds may develop even with optimal care.
--- NOTE | 2025-05-06 16:04 | PTCARENOTE ---
Pt's assessment as documented. NSR on tele monitor. Pt with copious amounts of secretions; suctioned frequently and mouth care completed. Sating mid to high 90's on TC. Tolerating TF. Grossly incontinent of stool and urine, ela care completed.
Dressings changed by WOC RN. Q2T and safe environment maintained.
--- NOTE | 2025-05-06 16:21 | CHAP ---
Emotional and spiritual support provided for Mrs. Levi at bedside and in waiting room. She shared stories of their life together, and of what the last several years have been like. Also shared that she had a negative experience with hospice
care for her dad. Prayers shared.
--- NOTE | 2025-05-06 16:22 | W.PN.ID1 ---
Date of Service
Date of Service: May 06, 2025
Today's Communication
Continue Zosyn.
Assessment / Plan
Staph epidermidis bacteremia (1 of 3 sets)
- Contaminant
- previously reported as MRSA but corrected.
Diphtheroid bacteremia 2 of 3 sets
-contaminants
Leukocytosis
- resolved
Fever - returned.
Seizures
Suspected aspiration PNA
Paroxysmal Atrial Fibrillation
Anoxic Brain Injury
Multiple Stage IV Pressure Injuries
Severe contractures
Anemia of Chronic Disease and Iron Deficiency Anemia
Seizure Disorder
Esophagitis / Esophageal Ring
Recommendations:
Ucx neg.
CXR and CT chest neg for focal dense consolidation.
Repeat blood culture with growth on day 5; suspect contaminant
TTE no gross veg.
Continue Zosyn 3.375 gm IV q.6 hours
Continue local care to wounds.
Overall long-term prognosis poor to nil. Patient unlikely to ever have any improved quality of life given significant comorbidities at this point.
Family possibly contemplating home palliative care.
����������������������������������������������������������
Chief Complaint
-: Fever and Bacteremia
Subjective / Review of Systems
Patient seen and examined. Chart reviewed. No significant changes overnight.
Vital Signs / Physical Exam
Vital Signs
Vital Signs
Temp Pulse Resp BP Pulse Ox
99.5 F 97 24 106/95 99
05/06/25 15:18 05/06/25 15:04 05/06/25 15:04 05/06/25 15:04 05/06/25 15:00
Physical Exam
Constitutional: Comfortable and Chronically Ill
Eyes: Sclera Anicteric
Cardiovascular: Regular Rate and S1/S2
Pulmonary: Rhonchi and Other (Trach collar in place)
Gastrointestinal: Soft, Non Tender and Non Distended
Musculoskeletal: Other (contracted extremities)
Wound: Other (Wound dressed.)
Neurological: Awake (Eyes open) and Other (Responsive to touch. Nonverbal.)
Objective Data
Lab Data
Lab Results
05/06/25 05:57
05/06/25 05:57
PT 16.2 Sec (11.4-14.6) H 04/28/25 03:58
INR 1.27 04/28/25 03:58
APTT 25.7 Sec (23.4-35.0) 04/28/25 03:58
Estimated Creat Clear 56 ml/min 05/06/25 05:57
Lactic Acid Cancelled 04/27/25 20:15
Total Bilirubin 0.2 mg/dl (0.2-1.3) 05/02/25 05:40
AST 18 U/L (17-59) 05/02/25 05:40
ALT 10 U/L (0-50) 05/02/25 05:40
Alkaline Phosphatase 59 U/L (38-126) 05/02/25 05:40
Most recent labs reviewed.
Micro Results:
05/05/25 15:00 Respiratory Culture - Preliminary
Tracheal Aspirate Gram Stain - Preliminary
04/27/25 16:53 Blood Culture - Final
Blood/Venous Staphylococcus epidermidis
Diptheroids
Gram Stain - Final
05/01/25 06:43 Blood Culture - Final
Blood/Venous No Growth - Final Report
05/01/25 05:59 Blood Culture - Final
Blood/Venous No Growth - Final Report
05/02/25 05:40 Blood Culture - Preliminary
Blood/Venous No Growth in 4 days- Final report to follow
04/27/25 16:18 Blood Culture - Final
Blood/Venous Gram Stain - Final
04/29/25 18:31 Blood Culture - Final
Blood/Venous No Growth - Final Report
04/27/25 16:18 Blood Culture - Final
Blood/Venous Diptheroids
Gram Stain - Final
04/27/25 20:01 Wound Culture - Final
Buttock Gram negative bacilli
Streptococcus species
Diptheroids
Additional testing on request
Gram Stain - Final
04/28/25 09:52 Respiratory Culture - Final
Endotracheal Gram negative bacilli
Additional testing on request
Gram Stain - Final
04/27/25 18:11 Urine Culture - Final
Urine NO GROWTH
04/27/25 16:53 Influenza Types A & B (MAYELA) - Final
Nasal Swab Negative for Influenza A & B, NAAT
Negative results must be combined with clinical observations
and patient history.
Nucleic Acid Amplification test (NAAT)performed on the
[employer] platform.
Imaging:
04/27/2025 CT chest/abdomen/pelvis with IV contrast: no acute disease in the chest. Minimal pulmonary fibrosis. Mild bronchiectasis. Moderate emphysematous disease. Findings suggestive of fecal impaction, progressed. Two 6 mm gallstones, stable.
Mild diffuse bladder wall thickening which can be seen in cystitis and bladder outlet obstruction. Please see full dictation for additional detail.
--- NOTE | 2025-05-06 16:53 | W.PN.PUL3 ---
Today's Communication / Plan
-
poor prognosis
Continue secretion clearance intervention
Continue antibiotics
I would focus on comfort-unfortunately not much to add from the pulmonary perspective.
Assessment
-
Impression:
#Febrile illness - due to MRSE bacteremia
#Fecal impaction in rectum
#Sacral decubitus ulcer (chronic)
#Leukocytosis
#Chronic anemia
#Pulmonary fibrosis
#History of eosinophilia (absolute eosinophil count 1200 on 03/16/2025; was as high as 1500 on 06/18/2024)
#Right upper lobe bleb measuring 4.9 cm with bilateral bronchiectasis
#Acute flare of bronchiectasis with increased secretions
#Hx of seizures following hemorrhagic stroke (2021)
#History of COVID-19 pneumonitis complicated by cardiac arrest (2021)
#Paroxysmal A-fib
Plan:
Unfortunately, patient has clinically deteriorated. More difficulty clearing secretions, hypotensive requiring vasopressors--Unfortunately continued to worsen from the respiratory perspective, appears uncomfortable. No longer receiving morphine
for comfort.
Difficulty clearing secretions through the stoma.
Chest x-ray 05/04/2025: Low lung volumes. Difficult to interpret.
Suspect patient has ongoing tube feeding aspirations.
-
- Continue with secretion clearance interventions-has thick secretions-likely chronic problem-Perhaps acute component due to recurrent microaspiration and possibly new infection.
- Upon discharge tracheal stoma should be suction every 2-3 hours by nursing.
-Need to keep up with airway suctioning otherwise he will be at high risk of plugging
-- He has a Hx of hypercapnia --> blood gas checked on AM of 04/29 and no significant hypercapnia seen with pH 7.36, pCO2 48 compensated chronic hypercapnic respiratory failure.-
-
Unfortunately, limited options from the pulmonary perspective.
- Continue mucolytics.
- mucomyst 20% BID and nebulized albuterol to help him expectorate. Patient has a weak cough effort.
- 3% saline nebs bid--> while in the hospital.
- prn nebulized bronchodilators - not currently bronchospastic
- Given his elevated eosinophils in setting of bronchiectasis and large amounts of mucous, Continue nebulized pulmicort; on recent CT Chest on 04/27/2025, no evidence of bacterial pneumonia
- Maintain SpO2 >90-94% with trach collar at 28%
-Difficult situation as despite maximal secretion clearance interventions patient has weak cough effort and suctioning will be maintained.
- Per direction limiting suctioning. Unable to clear secretions.
She understands that this could worsen his pulmonary condition and put him at risk for mucous plugging and hypercapnia with respiratory failure.
-
Discussed with infectious disease antibiotics were started 05/05/2025 due to fevers
Cultures were sent
Fevers improvement and continue Zosyn-Infectious disease following.
-
- Continue tube feeds now that his G-J tube exchanged during this admission.
- Suspect has recurrent microaspiration's. Tube feedings regurgitation.
- Aspiration precautions keeping HOB >30-45�
-
-Shock due to sepsis likely, dehydration and narcotic/sedatives for increased work of breathing and pain.
Intermittently on low-dose Levophed.
yesterday instructed to discontinue Levophed.
- Neurology Saw the patient during this visit.
- CT head performed on 04/28 showed no acute intracranial hemorrhage with multiple areas of calcification within both hemispheres likely from prior hemorrhagic CVAs
- Defer AEDs to Neuro - currently on valproate + Keppra
- Initial Fever and leukocytosis resolved.
2 blood cultures from 04/27 are positive --> both are growing diphtheroids and 1 blood culture is growing MRSA; surveillance blood cultures collected on 04/29 and 05/01 both show NGTD
- TTE performed on 04/30 does not show any evidence of vegetation
- Depending if surveillance blood cultures are positive, he may need a DANIE to further evaluate for endocarditis
- Obtain set of daily surveillance blood Cx, as requested by ID
- He was malodorous when he was first brought in and continues to have a generalized foul odor coming from body
- Wound care to sacrum and other chronic wounds- may need general surgery consult depending on wound care recs
- Follow up wound Cx from buttock (GNR x 3 morphologies, Streptococcus spp and diphtheroids x 2 morphologies)
- Follow up urine Cx (NGTD)
- Secretions sent for culture from tracheal stoma (growing 3 different morphologies of moderate GNR --> likely colonization; follow-up species)
- Defer ABx to primary team + ID --> had been on Vanco/Zosyn however Zosyn has now been discontinued, and last day of IV vanc (05/02)
-Antibiotics were started 05/05/2025 due to fevers/hypotension -fever curve improved and to 20/25. See above.
Would focus on comfort. Discussed with primary team. Continue supportive care
Goals of care to be discussed with family today with primary team.
- DVT ppx: LMWH
Code status: DNR/DNI
Poor quality of life; recommend GOC discussion with family-patient is hospice appropriate.
High risk for readmission, poor cough effort, poor secretion clearance.
-
Dr. Arias discussed with over the phone 05/04/2025 discussed in worsening clinical respiratory situation. Difficulty clearing secretions despite maximal secretion clearance interventions, poor cough effort. Ongoing microaspiration with thick
secretions.
Unfortunately not much to offer from the pulmonary perspective, this patient is hospice appropriate in my opinion. She understands that he would like to continue supportive care for now.
Poor prognosis overall.
-
Critical care randi 31 minutes, discussing with the primary team, bedside evaluation, discussed with the family members, reviewing laboratories . multiple conversations with family.
Data:
CT Chest/Abd/Pelvis with IV contrast 04/27/2025:
No acute disease of the chest.
Minimal pulmonary fibrosis. New., Mild bronchiectasis. New. Moderate emphysematous disease. Stable
Findings suggestive of fecal impaction. Progressed
Two 6 mm gallstones. Stable
Mild diffuse bladder wall thickening. This can be seen with cystitis and bladder outlet obstruction. New
Subjective Data
-
Date of Service:
Date of Service: May 06, 2025
Chief Complaint: Pulmonary Follow Up
Subjective:
nonverbal.
still appears uncomfortable.
Significant secretions on tracheal stoma.
weak cough effort
Review of Systems
General: Other (Unable to obta-baseline noncommunicative. )
Objective Data
Data Reviewed
Vital Signs / I&O / Oxygen:
Vital Signs
Temp Pulse Resp BP Pulse Ox
99.5 F 97 24 106/95 99
05/06/25 15:18 05/06/25 15:04 05/06/25 15:04 05/06/25 15:04 05/06/25 15:00
Intake and Output
05/05/25 05/06/25 05/07/25
06:59 06:59 06:59
Intake Total 1125 / 1125 1300 / 1300
Output Total 400 / 400 750 / 750
Balance 725 / 725 550 / 550
SaO2 99
Nasal Cannula flow liters per 10
minute
Physical Exam
General: Respiratory Distress (negative mild at rest--? Baseline) and Chills (negative)
HEENT: Normocephalic, Anicteric and Other (Tracheal stoma with yellow secretions.)
Cardiovascular: S1-S2 and Peripheral Edema (Trace LE edema bilaterally)
Respiratory: Wheeze (negative), Crackles (negative), Rhonchi ( bilateral), Non-Labored Respirations and Stridor (negative)
GI: Soft, Non Distended, Non Tender, Normal Bowel Sounds and Feeding Tube (hole seen in tubing)
Neurology: Tremors (negative), Non Verbal and Other (Contracted lower extremities)
Skin: Warm, Dry, Cyanosis (negative) and Other (contracted limbs)
Labs/Micro/Reports
Lab Data
05/06/25 05:57
05/06/25 05:57
Microbiology
05/05/25 15:00 Tracheal Aspirate Respiratory Culture - Preliminary
05/05/25 15:00 Tracheal Aspirate Gram Stain - Preliminary
04/27/25 16:53 Blood/Venous Blood Culture - Final
Staphylococcus epidermidis
Diptheroids
04/27/25 16:53 Blood/Venous Gram Stain - Final
05/01/25 06:43 Blood/Venous Blood Culture - Final
No Growth - Final Report
05/01/25 05:59 Blood/Venous Blood Culture - Final
No Growth - Final Report
05/02/25 05:40 Blood/Venous Blood Culture - Preliminary
No Growth in 4 days- Final report to follow
04/27/25 16:18 Blood/Venous Blood Culture - Final
04/27/25 16:18 Blood/Venous Gram Stain - Final
04/29/25 18:31 Blood/Venous Blood Culture - Final
No Growth - Final Report
04/27/25 16:18 Blood/Venous Blood Culture - Final
Diptheroids
04/27/25 16:18 Blood/Venous Gram Stain - Final
[2025-05-06] MEDS: LOVENOX 40 MG SC (18:14)
[2025-05-06] MEDS: LIPITOR 40 MG TUBE (22:06)
[2025-05-07] VITALS (19 sets, daily range): BP systolic 99–132; BP diastolic 53–92
[2025-05-07] MEDS: ZOSYN 50 IV ×3 (00:36→12:19)
[2025-05-07] MEDS: SYNTHROID 75 MCG TUBE (05:46)
--- NOTE | 2025-05-07 07:30 | W.PN.HOSP.TC ---
Addendum entered and electronically signed by Armando Arroyo MD 05/07/25 21:45:
Attending Addendum-
I saw and evaluated the patient. I reviewed the resident�s note and agree with findings and plan as documented in the resident�s note. Sub: Patient nonverbal. appears more comfortable today. ROS unable to obtain. Exam: Vitals reviewed in chart
GEN-NAD HEENT TC in place moderate secretions present, heart RRR no MRG, Lungs diffuse wet rhonchi b/l abd GJ tube in place, soft NT ND pos BS LE +2 B/L LE edema Neuro unable to follow commands, severely contracted
Plan:
#Sepsis
#Aspiration
#sacral decub stage 4/stage I bilateral buttocks/healing right mid lower back and right hip stage 4 PI
#POA
#Chronic bedbound status with contractures/functional quadriplegia
- Wound culture-polymicrobial as expected
- cont wound care
- NO further pressos to be used
- Blood cx- 1/3-MRSA->staph epi, 2/3-diphtheroids - all likely contaminants
- ID input appreciated -abx restarted - zosyn day #2 transition to course of Augmentin on DC
- ECHO 04/30- LVEF WNL, no obvious signs of vegetation
- repeat blood cx-NGTD
- WBC now WNL
- poor prognosis
#Acute exacerbation of seizures in setting of sepsis
#Seizures post anoxic brain injury/Chronic Tremors to RIGHT ARM
- follows with Dr Melissa conrad neuro [place]
- Continue IV Depakote 875mg tid - home dose
- cont increased Increase Keppra from 750 mg twice daily to 1000 mg twice daily
- appreciate neuro input
# Acute on Chronic hypoxemic respiratory failure
- likely aspirating secretions and tube feeds
- chronically on trach collar with 5 L oxygen
- appreciate pulm input
- cont guaifenesin and suctioning
- cont mucolytics and nebs
- suction device ordered for patient
- poor prognosis appears to have < 6 months survival - hospice appropriate
- not a candidate for mech vent or NIPPV
- appreciate pall care input
- ethics consult canceled after discussion with POA with agreement for pall care bridge to hospice on DC
- cont care in IMU
#Dysphagia/GJ tube
-NPO
-tube replaced during hospital course
# Urinary Retention
- DC flomax
- cont price
- hisk risk infection with multiple sacral wounds
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
#PE 2023 s/p thrombectomy
#Hypothyroidism- TSH elevated - cont increased levothyroxine to 75mcg
#Paroxysmal A-fib August 2021
-metoprolol held due to hypotension
-not on AC due h/o hem CVA
#Anemia of chronic disease
#Iron deficiency anemia
DVT prophylaxis
Subcu Lovenox
Code- DNR [facility] on DC
Dispo-from home with - dc on pall care with bridge to hospice
Time spent coordinating care, DC planning, review of DC plan of care with resident, transition of care, review of records, med rec/scripts sent electronically, consults, notes, d/w consultants, nursing, POA updated, and CM� 33 mins >50% of this time
was devoted to counseling and coordination of care
Original Note:
Today's Communication/Plan
-
Moving forwards with discharge planning following Goals of Care discussion with family. Medical staff, Palliative, and Pack Room Operator aware. Patient slated to be discharged at approximately 5pm to home with outpatient palliative care with bridge to
hospice.
-Patient to be discharged on Augmentin 250mg oral solution BID for 10 days.
Assessment / Plan
Assessment / Plan
Assessment:
This is a 59 y/o male with pmhx of quadriplegia, paroxysmal afib, decubitus ulcers, seizure disorder s/p anoxic brain injury taking Keppra (750mg BID) and Depakote (875mg TID) who presented to the ED with increased seizure activity in the setting of
sepsis.
Plan:
Sepsis
Unstageable Sacral Decubitus Ulcer
Stage I Bilateral Buttocks and Lower Back Decubitus Ulcer
Stage IV mid lower back pressure ulcer
Stage IV right hip pressure ulcer
-On admission patient was hypotensive at 89/56, febrile at 101.4, HR 105.
-S/p 5L of NSS in the ED, and continued on IV NS at 100cc/hr. He is no longer hypotensive, but unable to definitively call this shock
-Source of infection is most likely secondary to Decubitus ulcers
-He has a history of ulcers positive for MSSA, Pseudomonas, Strep. Progenies, Proteus Mirabilis, Enterococcus faecalis in 2023, and Gayle auris in 2024
-All previously positive blood cultures determined to be due to contaminant from diptheroids and staph epi. D/c'ed Vancomycin 05/02, no role for further antibiotics.
-Given history of c. auris infection, precautions must be continued despite no active MRSA infection.
-Echocardiogram showed no evidence of valvular vegetations
-Continue wound care for his sacral wounds
-Continue to follow cultures
-Zosyn restarted by ID on 05/05/25 - switched to augmentin for discharge.
-Patient prognosis poor - Palliative care consulted and they discussed the patient's hospital course and extensive education was provided to the about the use of pressors for hemodynamic instability and morphine for comfort.
-Patient to be discharged on Augmentin 250mg oral solution BID for 10 days.
Acute Bronchiectasis Flare with Increased Secretions
Irritation of the Skin secondary to above
-Per CT Scan of the Chest/Abdomen/Pelvis: Mild bronchiectasis. New
-Increased secretions requiring regular suctioning by nursing staff, now every hour as of late yesterday/overnight
-Patient now has a bandage in place over his chest as nursing staff noted increased irritation of the skin due to frequently having to clean the skin of his chest following suctioning to remove secretions. Will need to continue to follow to ensure
skin does not experience breakdown.
-Patient is in need of suctioning of tracheostomy site at regular intervals as needed for increased secretions secondary to acute bronchiectasis flare. Suction will help to improve hypoxemia and prevent infections. Patient is nonmobile within the
home. Tracheostomy collar alone is insufficient to address his secretions, trial of scheduled nebulizers and acetylcysteine solution has also not decreased his requirement for suction. Regular suction upon discharge is needed to improve symptoms.
He will not be safe to return home without regular suctioning
-Continue morphine and ativan added yesterday evening as needed for signs of pain/distress including grimacing, thrashing, and screaming
Acute Urinary Retention
-Patient with new acute urinary retention, as he uses a condom catheter at home
-Price is now in place, was placed late in the evening on 05/03
-D/c date currently set to 05/06
-Will monitor
Feeding tube malfunction, resolved
-05/01 nurse noted feeding tube ruptured during attempted flush.
-Goals of care continue to be restorative
-IR consulted 05/01 for repair.Tube was successfully replaced and feedings via tube were resumed on the same day
Acute Exacerbation of Seizures, Resolved
Seizures s/p Anoxic Brain Injury
Functional Quadriplegia
-S/p anoxic brain injury/hemorrhagic CVA and cardiac arrest in 08/2021 at [facility]
-CT Head 08/2021 showed multiple large areas of cerebral infarction bilaterally with areas of hemorrhagic transformation with diffuse cerebral edema, mild left to right midline shift.
-Increased number of seizures despite compliance with medications over the last 5 days likely secondary to sepsis. Was given Ativan 0.5mg at 8PM on 04/26 prior to reporting to the ED. A single dose of acyclovir 20mg/kg was also given
-Outpatient, patient follows with Neurology at [facility] with Dr. Melissa Frost
-Continue Depakote 875mg TID, via feeding tube
-Continue Keppra 1000mg BID, via feeding tube
-Will monitor
History of Current Trach Collar with 5L Oxygen
-Copious trash secretions noted on arrival, and again today. Suctioning requirements increased. Bandage now in place due to skin irritation from frequent cleanings after suction.
-Sputum culture no growth to date
-Continue guaifenesin 600mg BID, though currently being held due to feeding tube malfunction
-Continue mucomyst nebulizer
Oral Thrush
-Noted upon arrival
-S/p one time dose of Diflucan 100mg
Anemia of Chronic Disease
Iron Deficiency Anemia
-Continue to monitor H&H
Paroxysmal Atrial Fibrillation
-HOLD metoprolol due to hypotension
Hypothyroidism
-TSH high at 41
-Continue levothyroxine 75 mcg daily via tube
-Will need repeat testing in 2-4 weeks for medication adjustment
History of Shock Liver/Multisystem Organ Dysfunction/Renal Failure in the setting of COVID19 infection 08/2021
History of PE in 2023 (Per )
Dispo: Prognosis poor. Patient to be discharged to home with palliative care bridge to hospice. Goals of care discussion had on 05/06/25 with Medical staff, Palliative, Patrol Community Service Officer, and CM was fruitful in establishing a safe discharge plan for this
patient that will be primarily Palliative care that may bridge to Hospice.
Anticipated Discharge: Today
Subjective/Interval History
-
Date of Service: May 07, 2025
Patient lying in bed with less secretions complicating his breathing. Perspiring while breathing loudly. Appears uncomfortable but breathing with somewhat more ease than the day prior. Patient remains unresponsive to verbal stimuli.
Objective Data
-
Labs:
No labs today. Slated for discharge with home palliative care.
Vital Signs:
Vital Signs
Temp Pulse Resp BP Pulse Ox
99.7 F 100 32 109/70 96
05/07/25 11:27 05/07/25 11:30 05/07/25 11:30 05/07/25 11:00 05/07/25 10:00
I&O
05/06/25 05/07/25 05/08/25
06:59 06:59 06:59
Intake Total 1300 / 1300 1080 / 1080
Output Total 750 / 750
Balance 550 / 550 1080 / 1080
Review of Systems
-
Unable to obtain full review of systems at this time due to: Patient Non-verbal
Constitutional: Reports Other (Visibly uncomfortable)
Physical Exam
-
General: Other (Patient is laying in bed with his eyes rolled upwards. He is nonresponsive to the sound of my voice or touch. He does not appear comfortable.)
HEENT: Normocephalic and Tracheotomy (5L O2. The site below the tracheotomy is now covered in a medical bandage as the skin was becoming inflamed from repeated cleaning post suction)
Cardiac: Regular Rhythm and Carotid Pulses
GI: Other (GJ Tube in place, tube feed currently underway.)
Musculoskeletal: Other (Multiple toe amputations of the feet bilaterally. Stable with no infection.)
Skin: Warm and Dry
Neuro: Negative Awake
[2025-05-07] MEDS: MUCOMYST 20% 2 ML INH (07:52)
[2025-05-07] MEDS: VENTOLIN NEBULES 2.5 MG INH (07:52)
[2025-05-07] MEDS: PULMICORT 0.5 MG INH (07:52)
[2025-05-07] MEDS: ROBITUSSIN 1200 MG TUBE (09:19)
[2025-05-07] MEDS: DEPAKENE 875 MG TUBE ×2 (09:20→16:55)
[2025-05-07] MEDS: FERROUS SULFATE ORAL LIQUID 300 MG TUBE (09:21)
[2025-05-07] MEDS: FLOMAX 0.4 MG TUBE (09:21)
[2025-05-07] MEDS: KEPPRA 1000 MG TUBE (09:21)
[2025-05-07] MEDS: DAKIN'S SOLUTION 0.125% 1/4 STRENGTH 473 ML TOPICAL (09:22)
[2025-05-07] MEDS: DESENEX/MITRAZOL/ZEASORB 1 APPLIC TOPICAL (09:22)
--- NOTE | 2025-05-07 11:11 | W.PN.ID1 ---
Date of Service
Date of Service: May 07, 2025
Today's Communication
Continue Zosyn while inpatient. Transition to Augmentin at discharge.
Assessment / Plan
Staph epidermidis bacteremia (1 of 3 sets)
- Contaminant
- previously reported as MRSA but corrected.
Diphtheroid bacteremia 2 of 3 sets
-contaminants
Leukocytosis
- resolved
Fever - improved
Seizures
Suspected aspiration PNA
Paroxysmal Atrial Fibrillation
Anoxic Brain Injury
Multiple Stage IV Pressure Injuries
Severe contractures
Anemia of Chronic Disease and Iron Deficiency Anemia
Seizure Disorder
Esophagitis / Esophageal Ring
Recommendations:
Ucx neg.
CXR and CT chest neg for focal dense consolidation.
Repeat blood culture with growth on day 5; suspect contaminant
TTE no gross veg.
Continue Zosyn 3.375 gm IV q.6 hours until discharge, at which time transition to Augmentin suspension.
Continue local care to wounds.
Overall long-term prognosis nil. Patient unlikely to ever have any improved quality of life given significant comorbidities at this point.
Patient likely for transition to home palliative care and potential hospice thereafter.
����������������������������������������������������������
Chief Complaint
-: Fever and Bacteremia
Subjective / Review of Systems
Patient seen and examined. Temperature curve improved. Patient otherwise without significant clinical change since yesterday.
Vital Signs / Physical Exam
Vital Signs
Vital Signs
Temp Pulse Resp BP Pulse Ox
99.3 F 94 18 99/70 98
05/07/25 07:37 05/07/25 07:58 05/07/25 07:58 05/07/25 06:00 05/07/25 07:58
Physical Exam
Constitutional: Comfortable and Chronically Ill
Eyes: Sclera Anicteric
Cardiovascular: Regular Rate and S1/S2
Pulmonary: Rhonchi and Other (Trach collar in place)
Gastrointestinal: Soft, Non Tender and Non Distended
Musculoskeletal: Other (contracted extremities throughout)
Wound: Other (Wounds dressed.)
Neurological: Awake (Eyes open) and Other (Responsive to touch. Nonverbal.)
Objective Data
Lab Data
PT 16.2 Sec (11.4-14.6) H 04/28/25 03:58
INR 1.27 04/28/25 03:58
APTT 25.7 Sec (23.4-35.0) 04/28/25 03:58
Estimated Creat Clear 56 ml/min 05/06/25 05:57
Lactic Acid Cancelled 04/27/25 20:15
Total Bilirubin 0.2 mg/dl (0.2-1.3) 05/02/25 05:40
AST 18 U/L (17-59) 05/02/25 05:40
ALT 10 U/L (0-50) 05/02/25 05:40
Alkaline Phosphatase 59 U/L (38-126) 05/02/25 05:40
Most recent labs reviewed.
Micro Results:
05/05/25 15:00 Respiratory Culture - Preliminary
Tracheal Aspirate Gram negative bacilli x3
Gram Stain - Preliminary
05/02/25 05:40 Blood Culture - Final
Blood/Venous No Growth - Final Report
04/27/25 16:53 Blood Culture - Final
Blood/Venous Staphylococcus epidermidis
Diptheroids
Gram Stain - Final
05/01/25 06:43 Blood Culture - Final
Blood/Venous No Growth - Final Report
05/01/25 05:59 Blood Culture - Final
Blood/Venous No Growth - Final Report
04/27/25 16:18 Blood Culture - Final
Blood/Venous Gram Stain - Final
04/29/25 18:31 Blood Culture - Final
Blood/Venous No Growth - Final Report
04/27/25 16:18 Blood Culture - Final
Blood/Venous Diptheroids
Gram Stain - Final
04/27/25 20:01 Wound Culture - Final
Buttock Gram negative bacilli
Streptococcus species
Diptheroids
Additional testing on request
Gram Stain - Final
04/28/25 09:52 Respiratory Culture - Final
Endotracheal Gram negative bacilli
Additional testing on request
Gram Stain - Final
04/27/25 18:11 Urine Culture - Final
Urine NO GROWTH
04/27/25 16:53 Influenza Types A & B (MAYELA) - Final
Nasal Swab Negative for Influenza A & B, NAAT
Negative results must be combined with clinical observations
and patient history.
Nucleic Acid Amplification test (NAAT)performed on the
[facility] platform.
Imaging:
04/27/2025 CT chest/abdomen/pelvis with IV contrast: no acute disease in the chest. Minimal pulmonary fibrosis. Mild bronchiectasis. Moderate emphysematous disease. Findings suggestive of fecal impaction, progressed. Two 6 mm gallstones, stable.
Mild diffuse bladder wall thickening which can be seen in cystitis and bladder outlet obstruction. Please see full dictation for additional detail.
Care Review
Plan reviewed with: Physician (Hospitalist)
--- NOTE | 2025-05-07 11:55 | PTCARENOTE ---
Patient nonverbal and at baseline mentation. Stoma with small amounts of white sputum. IC 40% in place, sats 95%. VSS. NSR on monitor. +2 LE and +3 scrotal and penile edema. Tube feeding set up changed and infusing per orders. Possible DC today.
Will continue to closely monitor.
--- NOTE | 2025-05-07 12:56 | CM ---
Addendum entered by Rajesh oSlares 05/07/25 13:37:
JIMMY Mena confirmed that [facility] will be following the patient outpatient. They are aware of this discharge today.
Original Note:
Following up on Patient. Medical Attending and Resident stated patient can discharge. Spoke to Karyna who asked about if the physican evaluated his toes. The physician did today and JIMMY Mena shared exactly what was said.
aware that patient is discharging today, asked about Suction Machine so called [facility] who will reach out to her for delivery. JIMMY Mena completed IMM and called [facility], spoke to Leah and updated the referral in [facility].
Patient is set up to transport Home today around 17:30 and aware.
PLAN: Home with [facility] and [facility]- resuming all services.
--- NOTE | 2025-05-07 18:14 | W.DCSUMMARY ---
Addendum entered and electronically signed by Armando Arroyo MD 05/07/25 21:46:
Read, reviewed, and agree. See same day progress note for additional details.
Fan Arroyo MD
Original Note:
Documented by User: Julian Osuna MD, Resident 05/07/25 18:50
Discharge Summary
Discharge Data
Date of Admission: 04/27/25
Date of Discharge: 05/07/25
-
Pending Results: No
Hospital Course
Discharging Physician : Dr. Arroyo and Dr Osuna
Disposition : Poor
Principal Discharge diagnosis : Acute exacerbation of seizures
Chronic Discharge diagnosis : Quadriplegia, paroxysmal afib, decubitus ulcers, seizure disorder s/p anoxic brain injury
Hospital Course :
This is a 59 y/o male with pmhx of quadriplegia, paroxysmal afib, decubitus ulcers, seizure disorder s/p anoxic brain injury taking Keppra (750mg BID) and Depakote (875mg TID). He presented to the ED from home with his following breakthrough
seizure despite compliance with his home medications. This had been ongoing for 5 days. His gave him lorazepam 0.5mg which initially improved his symptoms, but then had increased seizure activity, prompting her to call the ambulance.
In the ED, his temperature was 101 and his BP was 80s/60s. He was tachycardic with a pulse of 114. EKG showed sinus tachycardia, incomplete right bundle branch block replacing a right bundle branch block from EKG in 2023. He was noted to have
contracture of all of his extremities with skin breakdown in the lumbar and sacral region. He does have a history of sacral/iliac ulcers positive for Pseudomonas and C. auris. His chronic condom [place] catheter was significant for cloudy drainage.
His hemoglobin was 11.3 and his WBC was elevated at 12.7. His sodium was low at 134. His urine was positive for many bacteria and 2+ albumin. Valproic Acid was within limits at 68.2 Chest X-ray showed no acute disease. There was tiny right pleural
effusion versus pleural thickening. Stable. Mild right upper lobe scarring. Stable. Ct scan of the Chest/Abdomen/Pelvis also showed no acute disease of the chest. Minimal pulmonary fibrosis. New. Mild bronchiectasis. New. Moderate emphysematous
disease. Stable. Findings suggestive of fecal impaction. Progressed. Two 6mm gallstones. Stable. Diffuse bladder wall thickening seen with cystitis and bladder outlet obstruction. Blood, urine, sputum and wound cultures were taken. Neurology was
consulted. He was admitted to the ICU for further management. In total, on 04/27, he received 5000 mLs of normal saline.
On the morning of 04/28/2025, he remained tachycardic with a pulse of 119. His BP was 104/65 with a MAP of 77. His temperature was 99.7F with acetaminophen on board. His WBC had increased to 17.1. He required copious amounts of suction of his
tracheostomy site. On 04/29 he was transferred from the ICU to the IMU. His levothyroxine was increased from 50mcg to 75mcg. He continued to require tracheostomy suction. On 04/30 Zosyn was discontinued and he was continued on Vancomycin alone. An
echocardiogram was performed which was negative for valvular vegetations. He was transferred from the IMU to med/surg. He continued to require tracheostomy suction every 2-3 hours.
On 05/01 his GJ tube popped. Interventional radiology was consulted to replace his tube, which by �s report has happened numerous times in the past with the most recent replacement being in 03/2025. His Keppra and Depakote were switched back to
IV, and he was started on IVF as he could no longer receive tube feeds. On 05/02 final cultures revealed the positive blood cultures were caused by contaminant. Antibiotics were discontinued. On 05/03 his GJ tube was replaced, but he developed urinary
retention requiring placement of a price catheter, as well as signs of increased pain, so morphine and ativan were added. Case management coordinated delivery of a DME for suctioning to be sent to his house, and training was provided for his to
administer suctioning at home. A goals of care discussion was held on this day, and plans were made to discharge patient with palliative care to visit when he was safe to do so. On 05/04 patient continued to have copious secretions, requiring suction
every hour instead of every 2-3. He showed signs of distress and pain, prompting a dose of 5mg morphine to be given at 12:51PM.
From 05/05-05/07 the patient was transferred to the IMU with intermittent vasopressor support to maintain hemodynamics and for better monitoring. Morphine was discontinued at the request of the who was making medical decisions for the patient.
She had concerns that the morphine was making the patient's symptoms worse instead of improving the patient's comfort level. After extensive goals of care discussions and recommendations of future hospice, the of the patient opted for
outpatient palliative care at home with a bridge to hospice if needed. Palliative care outpatient follow up was coordinated and they will continue to follow the patient after he is discharged.
Patient will be sent home with 10 days of Augmentin 250mg twice daily. Patient's requests that the patient be discharged. The patient has reached maximal benefit from this hospital admission and the patient is appropriate for discharge at the
present time. There are no barriers that would impede the patient from being discharged from the hospital at the present time. The patient should follow-up with their primary care provider within 1 week following discharge. Patient should continue
to be followed by Palliative care at home after discharge.
Important imaging findings : As noted above
Procedure findings : N/a
Discharge Plan
-
Patient Disposition: Home (Routine Discharge)
Discharge Diagnosis/Procedures: Acute Exacerbation of Seizure Disorder
Condition: Fair
Diet: Tube feeding
Activity: As tolerated
Driving Restrictions: No driving
Bathing Restrictions: None
Other Services: VN
Activity Restrictions/Additional Instructions:
Wound Care Instructions
Clean all wounds with soap and water or Dakin's
R mid lower back and R hip: thin layer of barrier cream to periwound, Dakin's moist 2x2 gauze to base of wound cover with silicone foam change daily and prn soilage.
R lower buttock & L hip: silicone foam change q 2-3 days and prn soilage
sacrum and buttocks: clean with soap and water, barrier cream daily and prn incontinence
R neck: clean with soap and water, small silicone foam change q 3 days and prn soilage until healed.
lower legs: clean with soap and water, apply dusting of fungal powder daily followed by silicone foam, change foam q 2-3 days and prn soilage
heels and elbows: skin prep and protective foams change q 3 days and prn soilage.
air mattress with turning schedule
Referrals:
UNKNOWN,NO INTERVIEW [Family Provider]
Additional Discharge Medication Instructions: At this hospitalization, you had increased secretions requiring suction. We are prescribing you the following medications:
Acetylcysteine, Budesonide
You should continue your albuterol inhalers as well.
Your dose of Keppra was also changed at this visit. You should take 1000mg now.
Your dose of levothyroxine was also changed at this visit. You should take 75mcg now.
You should take Augmentin 250mg BID for 10 days.
You should follow-up with Palliative care at discharge.
Prescriptions:
New
acetylcysteine 200 mg/mL (20 %) Solution
2 ml inhalation R BID Qty: 120 0RF
budesonide 0.5 mg/2 mL Suspension For Nebulization
0.5 mg inhalation R BID Qty: 30 0RF
amoxicillin-pot clavulanate [Augmentin] 250-62.5 mg/5 mL suspension for reconstitution
10 ml PO BID 10 Days Qty: 200 0RF
Continued
atorvastatin 40 MG tablet
40 mg feeding tube HS
acetaminophen 325 MG tablet
650 mg feeding tube Q4HPRN PRN (Reason: mild pain, temp>100.4)
albuterol sulfate 2.5 MG/3 ML solution for nebulization
2.5 mg inhalation R [id number] PRN (Reason: sob)
ascorbic acid (vitamin C) [Vitamin C] 500 mg Tablet
500 mg feeding tube DAILY
ferrous sulfate 300 mg (60 mg iron)/5 mL Liquid
300 mg feeding tube BID
Santyl 250 unit/gram Ointment
1 applic TOPICAL DAILY
metoprolol tartrate 25 mg Tablet
25 mg feeding tube Q12 30 Days Qty: 60 0RF
Dakin's Solution 0.125 % Solution
1 applic topical DAILY Qty: 473 0RF
miconazole nitrate [Miconazorb AF] 2 % powder
1 applic topical DAILYPRN PRN (Reason: soilage/drainage)
lorazepam 0.5 mg tablet
0.5 mg feeding tube PRN PRN (Reason: seizure )
valproic acid (as sodium salt) 250 mg/5 mL solution
875 mg feeding tube TID
Changed
levothyroxine 50 mcg tablet
75 mcg feeding tube DAILY@07 Qty: 30 0RF
levetiracetam [Keppra] 100 mg/mL Solution
1,000 mg feeding tube BID Qty: 600 0RF
Discharge Orders:
Discharge Patient (As Directed); Ordered 05/07/25
Ordered By: Julian Osuna
Discharge Date and Time
Discharge Date/Time: 05/07/25 18:30
Print Language: ANGOLAN

Documented by User: Armando Arroyo MD 05/07/25 21:42
Discharge Summary
Discharge Data
Date of Admission: 04/27/25
Date of Discharge: 05/07/25
Discharge Plan
-
Patient Disposition: Home (Routine Discharge)
Discharge Diagnosis/Procedures: Acute Exacerbation of Seizure Disorder
Condition: Fair
Diet: Tube feeding
Activity: As tolerated
Driving Restrictions: No driving
Bathing Restrictions: None
Other Services: VN
Activity Restrictions/Additional Instructions:
Wound Care Instructions
Clean all wounds with soap and water or Dakin's
R mid lower back and R hip: thin layer of barrier cream to periwound, Dakin's moist 2x2 gauze to base of wound cover with silicone foam change daily and prn soilage.
R lower buttock & L hip: silicone foam change q 2-3 days and prn soilage
sacrum and buttocks: clean with soap and water, barrier cream daily and prn incontinence
R neck: clean with soap and water, small silicone foam change q 3 days and prn soilage until healed.
lower legs: clean with soap and water, apply dusting of fungal powder daily followed by silicone foam, change foam q 2-3 days and prn soilage
heels and elbows: skin prep and protective foams change q 3 days and prn soilage.
air mattress with turning schedule
Referrals:
UNKNOWN,NO INTERVIEW [Family Provider]
Additional Discharge Medication Instructions: At this hospitalization, you had increased secretions requiring suction. We are prescribing you the following medications:
Acetylcysteine, Budesonide
You should continue your albuterol inhalers as well.
Your dose of Keppra was also changed at this visit. You should take 1000mg now.
Your dose of levothyroxine was also changed at this visit. You should take 75mcg now.
You should take Augmentin 250mg BID for 10 days.
You should follow-up with Palliative care at discharge.
Prescriptions:
New
acetylcysteine 200 mg/mL (20 %) Solution
2 ml inhalation R BID Qty: 120 0RF
budesonide 0.5 mg/2 mL Suspension For Nebulization
0.5 mg inhalation R BID Qty: 30 0RF
amoxicillin-pot clavulanate [Augmentin] 250-62.5 mg/5 mL suspension for reconstitution
10 ml PO BID 10 Days Qty: 200 0RF
Continued
atorvastatin 40 MG tablet
40 mg feeding tube HS
acetaminophen 325 MG tablet
650 mg feeding tube Q4HPRN PRN (Reason: mild pain, temp>100.4)
albuterol sulfate 2.5 MG/3 ML solution for nebulization
2.5 mg inhalation R [id number] PRN (Reason: sob)
ascorbic acid (vitamin C) [Vitamin C] 500 mg Tablet
500 mg feeding tube DAILY
ferrous sulfate 300 mg (60 mg iron)/5 mL Liquid
300 mg feeding tube BID
Santyl 250 unit/gram Ointment
1 applic TOPICAL DAILY
metoprolol tartrate 25 mg Tablet
25 mg feeding tube Q12 30 Days Qty: 60 0RF
Dakin's Solution 0.125 % Solution
1 applic topical DAILY Qty: 473 0RF
miconazole nitrate [Miconazorb AF] 2 % powder
1 applic topical DAILYPRN PRN (Reason: soilage/drainage)
lorazepam 0.5 mg tablet
0.5 mg feeding tube PRN PRN (Reason: seizure )
valproic acid (as sodium salt) 250 mg/5 mL solution
875 mg feeding tube TID
Changed
levothyroxine 50 mcg tablet
75 mcg feeding tube DAILY@07 Qty: 30 0RF
levetiracetam [Keppra] 100 mg/mL Solution
1,000 mg feeding tube BID Qty: 600 0RF
Discharge Orders:
Discharge Patient (As Directed); Ordered 05/07/25
Ordered By: Julian Osuna
Discharge Date and Time
Discharge Date/Time: 05/07/25 18:30
Print Language: ANGOLAN
--- NOTE | 2025-05-07 18:34 | PTCARENOTE ---
Patient taken by ambulance stretcher. IJ removed by IV team. Tele removed, VSS. Spoke with patients and answered all questions. DC packet sent with ambulance.
== END 2025-05-07 18:30 | disposition home health service (06) | DRG 871 ==
LOC: IMU 20:15
PROVIDERS: Clinical Nurse Specialist Family Health; Nurse Practitioner Family; Radiology Diagnostic Radiology; Radiology Vascular & Interventional Radiology; ADMITTING PHYSICIAN Hospitalist; ATTENDING PHYSICIAN Family Medicine; CONSULT PHYSICIAN Internal Medicine Critical Care Medicine; CONSULT PHYSICIAN Internal Medicine Infectious Disease; CONSULT PHYSICIAN Psychiatry & Neurology Neurology; EMERGENCY PHYSICIAN Emergency Medicine; OTHER PHYSICIAN Nurse Practitioner Gerontology
PROC: 05HP33Z Insertion of Infusion Device into Right External Jugular Vein, Percutaneous Approach (ICD-10-PCS; 2025-04-28)
PROC: B5131ZA Fluoroscopy of Right Jugular Veins using Low Osmolar Contrast, Guidance (ICD-10-PCS; 2025-04-28)
PROC: BD13YZZ Fluoroscopy of Small Bowel using Other Contrast (ICD-10-PCS; 2025-05-03)
PROC: 0D2DXUZ Change Feeding Device in Lower Intestinal Tract, External Approach (ICD-10-PCS; 2025-05-03)
DX: A41.1 Sepsis due to other specified staphylococcus (principal); J96.21 Acute and chronic respiratory failure with hypoxia; L89.154 Pressure ulcer of sacral region, stage 4; L89.134 Pressure ulcer of right lower back, stage 4; L89.214 Pressure ulcer of right hip, stage 4; R53.2 Functional quadriplegia; G93.1 Anoxic brain damage, not elsewhere classified; L89.321 Pressure ulcer of left buttock, stage 1; L89.311 Pressure ulcer of right buttock, stage 1; Z74.01 Bed confinement status; M24.50 Contracture, unspecified joint; Z86.16 Personal history of COVID-19; E03.9 Hypothyroidism, unspecified; I48.0 Paroxysmal atrial fibrillation; D63.8 Anemia in other chronic diseases classified elsewhere; D50.9 Iron deficiency anemia, unspecified; G40.909 Epilepsy, unspecified, not intractable, without status epilepticus; I45.10 Unspecified right bundle-branch block; J84.10 Pulmonary fibrosis, unspecified; J47.9 Bronchiectasis, uncomplicated; I10 Essential (primary) hypertension; K21.9 Gastro-esophageal reflux disease without esophagitis; N32.0 Bladder-neck obstruction; N30.90 Cystitis, unspecified without hematuria; Z79.890 Hormone replacement therapy; Z79.899 Other long term (current) drug therapy; Z86.711 Personal history of pulmonary embolism; Z87.01 Personal history of pneumonia (recurrent); Z93.4 Other artificial openings of gastrointestinal tract status; Z11.52 Encounter for screening for COVID-19
CPT/HCPCS: 36556; 36600; 49452; 70450; 71045; 71260; 74177; 76937; 77001; 80048; 80053; 80164; 80202; 81003; 81015; 82550; 82805; 82962; 83036; 83605; 83735; 84100; 84145; 84439; 84443; 85025; 85027; 85610; 85730; 87040; 87070; 87086; 87147; 87154; 87186; 87205; 87502; 87811; 93005; 93306; 94640; 94668; 95816; 96361; 96365; 96366; 96367; 96375; 99291; C1752; C1769; Q9967